=== PATIENT | female | born 1990 | race Caucasian/White ===

== ENCOUNTER → 2017-08-08 | Outpatient (CLI) | payer OTHER ==
[~2017-08-08] MED LIST: ADDR10T; AMOXIL; CEPH500C PO; CYCL10TA9 PO; DDAVP; DIPH-424 PO; ESCT10T; HYDR-1231 PO; METR70GE8 VG; MICO25CR2 VG; NAPR-915 PO; NITR-65 PO; ONDA-42 SL; ONDA8TAB9 PO; PHENERGAN; PREN-115 PO; PREN1TAB71 PO; PRM25T PO; PROM12.59 PO; PROM25SU10 PR; VITAMIN B 6 PO; ZONEGRAN
--- NOTE | 2017-08-08 11:19 | Diagnostic Imaging Report ---
Indication: Pelvic pain. Technique: Russell scale, color flow and duplex Doppler evaluation of the transabdominal/transvaginal pelvis. Findings: The uterus measures 7.8 x 5.0 x 3.3 cm. No uterine mass is detected. Endometrium is 5 mm in thickness. The ovaries were not visualized, perhaps owing to overlying bowel gas. No adnexal mass or free fluid is seen. Impression: Nonvisualized ovaries. The study is otherwise unremarkable. Dictated by: Dictated on workstation # [id number]
== END ==
LOC: RAD 10:02
PROVIDERS: ATTEND Family Medicine
DX: N91.2 Amenorrhea, unspecified (principal)
CPT/HCPCS: 76830; 76856

== ENCOUNTER 2017-12-25 19:58 | Emergency (ER) | payer MEDICAID, OTHER ==
[~2017-12-25] VITALS: Ht 160 cm; Wt 127.0 kg
--- OUTSIDE RECORDS SUMMARY | 2017-12-25 20:04 | XMS REPORT ---
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 Husbandry Technician Name Role Phone OLY DURBIN Unavailable PROBLEMS Type Condition ICD9-CM Code GRF37-UG Code Onset Dates Condition Status SNOMED Code Problem Bipolar I disorder with depression F31.9 Active 45273318 Problem Amenorrhea N91.2 Active 31191159 Problem Social anxiety disorder F40.10 Active 48070685 Problem Obsessive-compulsive disorder, unspecified type F42.9 Active 442633170 Problem PTSD (post-traumatic stress disorder) F43.10 Active 78302165 Problem Mood disorder F39 Active 31627308 Problem 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 Active 37958562 ALLERGIES No Information ENCOUNTERS Encounter Location Date Diagnosis [place] [id number] [place] [address] 95098- 3684 Jan, [place] [address] 16136- 0735 Nov, Benign paroxysmal positional vertigo of left ear H81.12 and BMI 50.0-59.9, adult Z68.43 [facility] [id number] [place] [address] 74984- 9850 Nov, [facility] [id number] [place] [address] 07777- 4456 Nov, [facility] [id number] [place] [address] 66599- 4436 Oct, PTSD (post-traumatic stress disorder) F43.10 and Bipolar I disorder with depression F31.9 [facility] [id number] [place] [address] 82507- 2751 Oct, [facility] [id number] [address] 6609 Oct, PTSD (post-traumatic stress disorder) F43.10 and Bipolar I disorder with depression F31.9 [facility] [address] [address] 6[address] Oct, [facility] [address], [place] [address]- 0585 Sep, Bipolar I disorder with depression F31.9 [facility] [id number] [place] [address] 10151- 7912 Sep, Bipolar I disorder with depression F31.9 ; PTSD (post- traumatic stress disorder) F43.10 ; 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 ; Social anxiety disorder F40.10 and BMI 50.0-59.9, adult Z68.43 [facility] [address], [place] [address]- 8171 Sep, PTSD (post-traumatic stress disorder) F43.10 and Bipolar I disorder with depression F31.9 [facility] [address] [address]- 4054 Sep, PTSD (post-traumatic stress disorder) F43.10 and Bipolar I disorder with depression F31.9 [facility] [address] [address] 4807 August, PTSD (post-traumatic stress disorder) F43.10 and Bipolar I disorder with depression F31.9 [facility] [address], [place] [address]- 3892 August, Bipolar I disorder with depression F31.9 ; PTSD (post- traumatic stress disorder) F43.10 ; 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 ; Social anxiety disorder F40.10 and BMI 50.0-59.9, adult Z68.43 [facility] [address], [place] [address]- 9116 August, [facility] [id number] [place] [address] 83884- 5792 August, Bipolar I disorder with depression F31.9 ; PTSD (post- traumatic stress disorder) F43.10 ; 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 ; Social anxiety disorder F40.10 and BMI 50.0-59.9, adult Z68.43 [place] [address] [place] [address] 04605- 8602 August, [place] [address] 97040- 3285 August, [place] [id number] [place] [address] 04799- 4903 August, PTSD (post-traumatic stress disorder) F43.10 and Bipolar I disorder with depression F31.9 [place] [id number] [place] [address] 38962- 3528 August, [place] [id number] [place] [address] 38257- 2219 Jul, Bipolar I disorder with depression F31.9 ; PTSD (post- traumatic stress disorder) F43.10 ; 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 ; Social anxiety disorder F40.10 and BMI 50.0-59.9, adult Z68.43 [place] [address] [place] [address] 98413- 5086 Jul, PTSD (post-traumatic stress disorder) F43.10 and Bipolar I disorder with depression F31.9 [place] [id number] [place] [address] 58488- 0895 Jul, Pelvic pain R10.2 ; Amenorrhea N91.2 and BMI 50.0-59.9, adult Z68.43 [place] [id number] [place] [address] 34475- 0064 Jun, BMI 50.0-59.9, adult Z68.43 ; Bipolar I disorder with depression F31.9 ; PTSD (post-traumatic stress disorder) F43.10 and 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 [facility] [address] [place] [address] 07669 -2328 15 Jun, 2017 Other viral agents as the cause of diseases classified elsewhere B97.89 ; Other specified respiratory disorders J98.8 ; Bronchitis J40 and Cough R05 [facility] [id number] [place] [address] 15433- 2536 13 Jun, 2017 PTSD (post-traumatic stress disorder) F43.10 [facility] [id number] [place] [address] 70102- 9330 Jun, PTSD (post-traumatic stress disorder) F43.10 and Bipolar I disorder with depression F31.9 [facility] [address] 25082- 5696 13 May, 2017 PTSD (post-traumatic stress disorder) F43.10 and Bipolar I disorder with depression F31.9 [facility] [id number] [place] [address] 24017- 5388 12 May, 2017 [facility] [address] 51208- 7270 07 May, 2017 PTSD (post-traumatic stress disorder) F43.10 and Bipolar I disorder with depression F31.9 [facility] [id number] [place] [address] 48622- 1277 Apr, PTSD (post-traumatic stress disorder) F43.10 and Bipolar I disorder with depression F31.9 [facility] [id number] [place] [address] 90676- 8963 Apr, PTSD (post-traumatic stress disorder) F43.10 and Bipolar I disorder with depression F31.9 [facility] [id number] [place] [address] 77990- 4400 Mar, PTSD (post-traumatic stress disorder) F43.10 ; Obsessive- compulsive disorder, unspecified type F42.9 ; Bipolar I disorder with depression F31.9 and 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 [place] [address], [place] [address]- 6276 Mar, PTSD (post-traumatic stress disorder) F43.10 and Bipolar I disorder with depression F31.9 [facility] [address], [place] [address]- 8326 Feb, PTSD (post-traumatic stress disorder) F43.10 and Bipolar I disorder with depression F31.9 [facility] [address] [place] [address] 87315- 5396 Feb, PTSD (post-traumatic stress disorder) F43.10 and Bipolar I disorder with depression F31.9 [facility] [id number] [place] [address] 40504 -4736 Jan, Strep pharyngitis J02.0 [facility] [id number] [place] [address] 40256- 2116 Jan, [facility] [address] [place] [address] 94863- 3952 Jan, [facility] [id number] [place] [address] 57594- 3255 Jan, PTSD (post-traumatic stress disorder) F43.10 and Bipolar I disorder with depression F31.9 [facility] [address], [place] [address]- 6316 Jan, PTSD (post-traumatic stress disorder) F43.10 and Bipolar I disorder with depression F31.9 [facility] [address], [place] [address]- 9776 Jan, Other senior living (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.899 [facility] [id number] [place] [address] 44171- 5866 Jan, PTSD (post-traumatic stress disorder) F43.10 ; Obsessive- compulsive disorder, unspecified type F42.9 ; Bipolar I disorder with depression F31.9 and Other senior living (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.899 [facility] [address], [place] [address]- 8405 27 Dec, 2016 Encounter for IUD removal Z30.432 and control counseling Z30.09 [facility] [id number] [place] [address] 89213- 4470 Dec, PTSD (post-traumatic stress disorder) F43.10 ; Obsessive- compulsive disorder, unspecified type F42.9 and Bipolar I disorder with depression F31.9 [facility] [id number] [place] [address] 66948- 6564 Dec, PTSD (post-traumatic stress disorder) F43.10 and Bipolar I disorder with depression F31.9 [facility] [id number] [place] [address] 10477- 6859 12 Dec, 2016 PTSD (post-traumatic stress disorder) F43.10 and Bipolar I disorder with depression F31.9 [facility] [id number] [place] [address] 87083- 9365 11 Dec, 2016 Mood disorder F39 [facility] [id number] [place] [address] 51194- 9749 08 Dec, 2016 PTSD (post-traumatic stress disorder) F43.10 ; Mood disorder F39 and Obsessive-compulsive disorder, unspecified type F42.9 [facility] [id number] [place] [address] 66312- 9256 07 Dec, 2016 PTSD (post-traumatic stress disorder) F43.10 and Bipolar I disorder with depression F31.9 [facility] [address] [place] [address] 87240 -9423 Dec, Adverse drug reaction, initial encounter T88.7XXA [facility] [id number] [place] [address] 61265- 3933 Dec, [facility] [id number] [place] [address] 70606- 7434 Nov, PTSD (post-traumatic stress disorder) F43.10 and Bipolar I disorder with depression F31.9 [facility] [address] [facility] [id number] [address]- 4870 Nov, PTSD (post-traumatic stress disorder) F43.10 ; Mood disorder F39 and Obsessive-compulsive disorder, unspecified type F42.9 [facility] [address] [id number] [address]- 6301 Nov, PTSD (post-traumatic stress disorder) F43.10 and Bipolar I disorder with depression F31.9 [facility] [id number], [place] [address]- 1756 Nov, PTSD (post-traumatic stress disorder) F43.10 and Bipolar I disorder with depression F31.9 [facility] [address] [facility] [id number] [address] Nov, [facility] [id number] [place] [address] 28784- 5236 Nov, PTSD (post-traumatic stress disorder) F43.10 and Bipolar I disorder with depression F31.9 [facility] [id number], [place] [address]- 0486 Nov, PTSD (post-traumatic stress disorder) F43.10 and Bipolar I disorder with depression F31.9 [facility] [id number], [place] [address]- 4376 Oct, [facility] [id number] [address]- 4366 Oct, PTSD (post-traumatic stress disorder) F43.10 ; Mood disorder F39 and Obsessive-compulsive disorder, unspecified type F42.9 [facility] [id number] [address]- 8958 Oct, PTSD (post-traumatic stress disorder) F43.10 and Bipolar I disorder with depression F31.9 [facility] [id number], [place] [address]- 8266 Oct, PTSD (post-traumatic stress disorder) F43.10 and Bipolar I disorder with depression F31.9 [facility] [address], [place] [address]- 1727 Oct, PTSD (post-traumatic stress disorder) F43.10 ; Mood disorder F39 and Obsessive-compulsive disorder, unspecified type F42.9 [facility] [address], [place] [address]- 7266 Oct, [facility] [id number] [place] [address] 38320- 5214 Oct, PTSD (post-traumatic stress disorder) F43.10 and Bipolar I disorder with depression F31.9 [facility] [address] [place] [address] 82371- 1274 Oct, PTSD (post-traumatic stress disorder) F43.10 ; Mood disorder F39 and Obsessive-compulsive disorder, unspecified type F42.9 [facility] [address] [place] [address] 89285- 4890 Sep, PTSD (post-traumatic stress disorder) F43.10 and Bipolar I disorder with depression F31.9 [facility] [address], [place] [address]- 2600 Sep, PTSD (post-traumatic stress disorder) F43.10 ; Mood disorder F39 and Obsessive-compulsive disorder, unspecified type F42.9 [facility] [address], [place] [address]- 6290 Sep, PTSD (post-traumatic stress disorder) F43.10 and Bipolar I disorder with depression F31.9 [facility] [address], [place] [address]- 3481 Sep, PTSD (post-traumatic stress disorder) F43.10 and Bipolar I disorder with depression F31.9 [facility] [address], [place] [address]- 3246 August, PTSD (post-traumatic stress disorder) F43.10 and Bipolar I disorder with depression F31.9 [facility] [id number] [place] [address] 22779 -2398 August, Pharyngitis due to other organism J02.8 [facility] [address] [place] [address] 76023- 0996 August, PTSD (post-traumatic stress disorder) F43.10 ; Bipolar 1 disorder, mixed F31.60 and 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 [facility] [id number] [place] [address] 67842- 1459 August, PTSD (post-traumatic stress disorder) F43.10 and Bipolar I disorder with depression F31.9 [facility] [id number] [place] [address] 88537- 8148 Jul, PTSD (post-traumatic stress disorder) F43.10 and Bipolar I disorder with depression F31.9 [facility] [id number] [place] [address] 29270- 0074 Jul, PTSD (post-traumatic stress disorder) F43.10 and Bipolar I disorder with depression F31.9 [facility] [id number] [place] [address] 46611- 0671 Jul, PTSD (post-traumatic stress disorder) F43.10 and Bipolar I disorder with depression F31.9 [facility] [address] [place] [address] 30347- 3843 Jul, Other senior living (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.899 [facility] [address] [place] [address] 05925- 6464 Jun, PTSD (post-traumatic stress disorder) F43.10 and Bipolar I disorder with depression F31.9 [facility] [address] [place] [address] 12661- 7035 Jun, Bipolar 1 disorder, mixed F31.60 ; PTSD (post-traumatic stress disorder) F43.10 and 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 [place] [id number] [place] [address] 50022- 1813 Jun, PTSD (post-traumatic stress disorder) F43.10 and Depression , unspecified depression type F32.9 [place] [id number] [place] [address] 30300- 9047 Jun, PTSD (post-traumatic stress disorder) F43.10 and Depression , unspecified depression type F32.9 [place] [address] 05747- 6079 Jun, PTSD (post-traumatic stress disorder) F43.10 and Depression , unspecified depression type F32.9 [facility] [address] 51354 -8513 May, Fever, unspecified fever cause R50.9 and Gastroenteritis K52.9 [place] [address] 57139- 6411 Mar, Sprain of other ligament of right ankle, subsequent encounter S93.491D [place] [address] 28614- 5647 Mar, [facility] [place] [address] 44247 -4120 Feb, Scabies infestation B86 [place] [address] 26670- 3662 Feb, Dental caries K02.9 [place] [id number] [place] [address] 33936- 1280 Jan, [facility] [address] 56691 -7220 Jan, Pharyngitis, unspecified etiology J02.9 [place] [address] 65638- 3703 Jan, [place] [address] 11870- 3629 Jan, Bipolar affective disorder, remission status unspecified F31.9 [facility] [id number] [place] [address] 87666- 0006 Jan, Encounter for dental examination and cleaning without abnormal findings Z01.20 [facility] [id number] [place] [address] 85292- 0089 Jan, Bipolar affective disorder, remission status unspecified F31.9 [facility] [id number] [place] [address] 15903- 5029 Dec, Bipolar affective disorder, remission status unspecified F31.9 and Depression, unspecified depression type F32.9 [place] [id number] [place] [address] 66335- 9375 Dec, Unspecified mood [affective] disorder F39 and Generalized anxiety disorder F41.1 [place] [id number] [place] [address] 32395- 9959 08 Dec, 2015 Depression, unspecified depression type F32.9 [place] [id number] [place] [address] 43091- 1042 Nov, Dental caries K02.9 [place] [id number] [place] [address] 15403- 1496 Nov, Dental examination Z01.20 [place] [id number] [place] [address] 86055- 5573 Sep, Bipolar affective disorder, remission status unspecified F31.9 [place] [id number] [place] [address] 17206- 6841 August, Tension headache G44.209 [facility] [id number] [place] [address] 81824 -0260 Jul, [facility] [id number] [place] [address] 30175 -1820 Jul, Upper respiratory infection J06.9 and Gastroenteritis K52.9 [facility] [address], [place] [address]- 7258 Jun, [facility]itis J40 [facility] [id number] [place] [address] 82229 -4862 Feb, Thoracic back pain M54.6 and Left shoulder pain M25.512 [facility] [id number], [place] [address]- 1475 Feb, [facility] [id number] [address]- 7589 Jul, [facility] [id number] [place] [address] 56880- 0125 Jul, [facility] [id number] [place] [address] 13422- 2385 Apr, [facility] [id number] [place] [address] 69533- 5019 Apr, [facility] [address], [place] [address]- 2428 Apr, [facility] [address] [place] [address] 91449- 9761 Apr, [facility] [address], [place] [address]- 4753 Mar, [facility] [address], [place] [address]- 4758 Mar, [facility] [address], [place] [address]- 4952 Mar, [facility] [address], [place] [address]- 7871 Mar, [facility] [address], [place] [address]- 6693 Feb, [facility] [address], [place] [address]- 9204 Feb, [facility] [place] [facility] [address] [id number] [place] [address]- 1018 Feb, [facility] [place] [facility] [address] [id number] [place] [address]- 3853 Feb, [facility] [place] [facility] [address] [id number] [place] [address]- 1789 15 Jan, 2014 [facility] [place] [facility] [address] [id number] [place] [address]- 6779 15 Jan, 2014 [facility] [place] [facility] [address] [id number] [place] [address]- 9839 14 Jan, 2014 [facility] [place] [facility] [address] [id number] [place] [address]- 1037 14 Jan, 2014 [facility] [place] [facility] [address] [id number] [place] [address]- 0496 Jan, [facility] [place] [facility] [address] [id number] [place] [address]- 2897 Jan, [facility] [place] [facility] [address] [id number] [place] [address]- 7952 Dec, [facility] [place] [facility] [address] [id number] [place] [address]- 0731 Dec, [facility] [place] [facility] [address] [id number] [place] [address]- 9040 Nov, [facility] [place] [facility] [address] [id number] [place] [address]- 1198 Nov, [facility] [place] [facility] [address] [id number] [place] [address]- 4523 Nov, [facility] [place] [facility] [address] [id number] [place] [address]- 4778 Nov, [facility] [place] [facility] [address] [id number] [place] [address]- 4183 Nov, [facility] [place] [facility] [address] [id number] [place] [address]- 0678 Nov, [facility] [place] [facility] [address] [id number] [place] [address]- 3085 Nov, [facility] [place] [facility] [address] [id number] [place] [address]- 1474 Nov, [facility] [place] [facility] [address] [id number] [place] [address]- 1810 Nov, [facility] [place] [facility] [address] [id number] [place] [address]- 7089 Oct, [facility] [place] [facility] [address] [id number] [place] [address]- 1452 Oct, [facility] [place] [facility] [address] [id number] [place] [address]- 2845 Oct, [facility] [place] [facility] [address] [id number] [place] [address]- 9523 Oct, [facility] [place] [facility] [address] [id number] [place] [address]- 5521 Oct, [facility] [place] [facility] [address] [id number] [place] [address]- 6632 Oct, [facility] [place] [facility] [address] [id number] [place] [address] Oct, [facility] [place] [facility] [address] [id number] [place] [address] Oct, [facility] [place] [facility] [address] [id number] [place] [address] Oct, [facility] [place] [facility] [address] [id number] [place] [address] Oct, [facility] [place] [facility] [address] [id number] [place] [address] Oct, [facility] [place] [facility] [address] [id number] [place] [address] Oct, [facility] [place] [facility] [address] [id number] [place] [address] Oct, 2013 [facility] [place] [facility] [address] [id number] [place] [address] Oct, 2013 [facility] [place] [facility] [address] [id number] [place] [address] Oct, 2013 [facility] [place] [facility] [address] [id number] [place] [address] Oct, 2013 [facility] [place] [facility] [address] [id number] [place] [address] Oct, 2013 [facility] [place] [facility] [address] [id number] [place] [address] Oct, 2013 [facility] [place] [facility] [address] [id number] [place] [address] Oct, [facility] [place] [facility] [address] [id number] [place] [address] Sep, [facility] [place] [facility] [address] [id number] [place] [address] Sep, [facility] [place] [facility] [address] [id number] [place] [address] Sep, [facility] [place] [facility] [address] [id number] [place] [address] Sep, [facility] [place] [facility] [address] [id number] [place] [address] Feb, [facility] [place] [facility] [address] [id number] [place] [address] Feb, [facility] [place] [facility] [address] [id number] [place] [address] Dec, [facility] [place] [facility] [address] [id number] [place] [address] Dec, [facility] [place] [facility] [address] [id number] [place] [address] Nov, [facility] [address] [id number] [place] [address] Nov, [facility] [place] [facility] [address] [id number] [place] [address] Nov, [facility] [place] [facility] [address] [id number] [place] [address] Nov, [facility] [place] [facility] [address] [id number] [place] [address] Nov, [facility] [place] [facility] [address] [id number] [place] [address] Nov, [facility] [place] [facility] [address] [id number] [place] [address] Oct, [facility] [place] [facility] [address] [id number] [place] [address] Apr, [facility] [place] [facility] [address] [id number] [place] [address] August, [facility] [place] [facility] [address] [id number] [place] [address] August, [facility] [place] [facility] [address] [id number] [place] [address] August, [facility] [place] [facility] [address] [id number] [place] [address] Jul, [facility] [place] [facility] [address] [id number] [place] [address] 28 Jun, 2011 [facility] [place] [facility] [address] [id number] [place] [address] 27 Jun, 2011 [facility] [place] [facility] [address] [id number] [place] [address] 14 Jun, 2011 [facility] [place] [facility] [address] [id number] [place] [address] 14 Jun, 2011 [facility] [place] [facility] [address] [id number] [place] [address] Jun, [facility] [address] [id number] [place] [address] Jun, [facility] [place] [facility] [address] [id number] [place] [address] May, 2011 [facility] [place] [facility] [address] [id number] [place] [address] 16 May, 2011 [facility] [place] [facility] [address] [id number] [place] [address] 09 May, 2011 [facility] [place] [facility] [address] [id number] [place] [address] 07 May, 2011 [facility] [place] [facility] [address] [id number] [place] [address] 06 May, 2011 [facility] [address] [facility] [id number] [place] [address] 06 May, 2011 [facility] [place] [facility] [address] [facility] [id number] [place] [address] Apr, [facility] [place] [facility] [address] [facility] [id number] [place] [address] 07 Mar, 2011 [facility] [place] [facility] [address] [facility] [id number] [place] [address] 06 Mar, 2011 [facility] [place] [facility] [address] [id number] [place] [address] 02 Feb, 2011 [facility] [place] [facility] [address] [id number] [place] [address] 13 Jan, 2011 [facility] [place] [facility] [address] [id number] [place] [address] 31 Mar, 2009 [facility] [place] [facility] [address] [facility] [id number] [place] [address] 15 Mar, 2009 [facility] [place] [facility] [address] [id number] [place] [address] Mar, [facility] [address] [id number] [address] Mar, [facility] [id number] [place] [address] Mar, [facility] [address] [id number] [address] Feb, [facility] [id number] [place] [address] Feb, [facility] [id number] [place] [address] Nov, [facility] [id number] [place] [address] May, IMMUNIZATIONS No Known Immunizations SOCIAL HISTORY Never Assessed REASON FOR VISIT Follow-up PTSD/Bipolar Disorder PLAN OF CARE Activity Details Follow Up 2 Weeks Reason: Follow-up VITAL SIGNS MEDICATIONS Unknown Medications RESULTS No Results PROCEDURES Procedure Date Ordered Result Body Site Psychotherapy, patient &/family, 45 minutes, established patient October 21, 2017 INSTRUCTIONS MEDICATIONS ADMINISTERED No Known Medications MEDICAL (GENERAL) HISTORY Type Description Date Medical History HELP syndrome Medical History bi-polar Medical History hypertension Medical History hx of seizure x1, isolated Surgical History gallbladder 10/2013 Surgical History 03/2014 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
--- OUTSIDE RECORDS SUMMARY | 2017-12-25 20:05 | XMS REPORT ---
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 Role Phone MARIANO REDDY Unavailable PROBLEMS Type Condition ICD9-CM Code IGP96-DZ Code Onset Dates Condition Status SNOMED Code Problem Bipolar I disorder with depression F31.9 Active 72292829 Problem Amenorrhea N91.2 Active 97003563 Problem Social anxiety disorder F40.10 Active 65871487 Problem Obsessive-compulsive disorder, unspecified type F42.9 Active 790929541 Problem PTSD (post-traumatic stress disorder) F43.10 Active 52386071 Problem Mood disorder F39 Active 34124928 Problem 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 Active [id number] ALLERGIES No Information ENCOUNTERS Encounter Location Date Diagnosis [facility] [id number] [place] [address] 67772- 2619 Jan, [facility] [id number] [place] [address] 67479- 6898 Nov, Benign paroxysmal positional vertigo of left ear H81.12 and BMI 50.0-59.9, adult Z68.43 [facility] [address], [place] [address] 8297 Nov, [facility] [id number] [place] [address] 12949- 6907 Nov, [facility] [id number] [place] [address] 36470- 7659 Oct, PTSD (post-traumatic stress disorder) F43.10 and Bipolar I disorder with depression F31.9 [facility] [address], [place] [address] 9[address] Oct, [facility] [id number] [address] 6707 Oct, PTSD (post-traumatic stress disorder) F43.10 and Bipolar I disorder with depression F31.9 [facility] [address], [place] [address] 3637 Oct, [facility] [address], [place] [address] 9214 Sep, Bipolar I disorder with depression F31.9 [place] [address] [address] 4037 Sep, Bipolar I disorder with depression F31.9 ; PTSD (post- traumatic stress disorder) F43.10 ; 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 ; Social anxiety disorder F40.10 and BMI 50.0-59.9, adult Z68.43 [place] [address], [place] [address] 6935 Sep, PTSD (post-traumatic stress disorder) F43.10 and Bipolar I disorder with depression F31.9 [place] [address], [place] [address] 9653 Sep, PTSD (post-traumatic stress disorder) F43.10 and Bipolar I disorder with depression F31.9 [place] [address], [place] [address] 8397 August, PTSD (post-traumatic stress disorder) F43.10 and Bipolar I disorder with depression F31.9 [place] [address], [place] [address] 4386 August, Bipolar I disorder with depression F31.9 ; PTSD (post- traumatic stress disorder) F43.10 ; 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 ; Social anxiety disorder F40.10 and BMI 50.0-59.9, adult Z68.43 [place] [address] [address] 6767 August, [place] [id number] [address]- 5728 August, Bipolar I disorder with depression F31.9 ; PTSD (post- traumatic stress disorder) F43.10 ; 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 ; Social anxiety disorder F40.10 and BMI 50.0-59.9, adult Z68.43 [place] [address], [place] [address] 4915 August, [place] [id number] [place] [address] 51920- 1697 August, [place] [id number] [place] [address] 79526- 5099 August, PTSD (post-traumatic stress disorder) F43.10 and Bipolar I disorder with depression F31.9 [place] [id number] [place] [address] 10612- 9177 August, [place] [id number] [place] [address] 27260- 1920 Jul, Bipolar I disorder with depression F31.9 ; PTSD (post- traumatic stress disorder) F43.10 ; 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 ; Social anxiety disorder F40.10 and BMI 50.0-59.9, adult Z68.43 [place] [id number] [place] [address] 51955- 3623 Jul, PTSD (post-traumatic stress disorder) F43.10 and Bipolar I disorder with depression F31.9 [place] [id number] [place] [address] 87065- 2653 Jul, Pelvic pain R10.2 ; Amenorrhea N91.2 and BMI 50.0-59.9, adult Z68.43 [place] [id number] [place] [address] 32363- 7829 Jun, BMI 50.0-59.9, adult Z68.43 ; Bipolar I disorder with depression F31.9 ; PTSD (post-traumatic stress disorder) F43.10 and 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 [facility] [id number] [place] [address] 00675 -7291 15 Jun, 2017 Other viral agents as the cause of diseases classified elsewhere B97.89 ; Other specified respiratory disorders J98.8 ; Bronchitis J40 and Cough R05 [facility] [id number] [place] [address] 83062- 3472 13 Jun, 2017 PTSD (post-traumatic stress disorder) F43.10 [facility] [id number] [place] [address] 12161- 9822 13 Jun, 2017 PTSD (post-traumatic stress disorder) F43.10 and Bipolar I disorder with depression F31.9 [facility] [id number] [place] [address] 75296- 9642 13 May, 2017 PTSD (post-traumatic stress disorder) F43.10 and Bipolar I disorder with depression F31.9 [facility] [id number] [place] [address] 31510- 3995 12 May, 2017 [facility] [id number] [place] [address] 58512- 9471 07 May, 2017 PTSD (post-traumatic stress disorder) F43.10 and Bipolar I disorder with depression F31.9 [facility] [id number] [place] [address] 07134- 2176 Apr, PTSD (post-traumatic stress disorder) F43.10 and Bipolar I disorder with depression F31.9 [facility] [id number] [place] [address] 71734- 0472 Apr, PTSD (post-traumatic stress disorder) F43.10 and Bipolar I disorder with depression F31.9 [facility] [id number] [place] [address] 86991- 6500 Mar, PTSD (post-traumatic stress disorder) F43.10 ; Obsessive- compulsive disorder, unspecified type F42.9 ; Bipolar I disorder with depression F31.9 and 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 [facility] [address], [place] [address]- 2392 Mar, PTSD (post-traumatic stress disorder) F43.10 and Bipolar I disorder with depression F31.9 [facility] [id number] [place] [address] 72671- 9096 Feb, PTSD (post-traumatic stress disorder) F43.10 and Bipolar I disorder with depression F31.9 [facility] [id number] [place] [address] 53215- 2076 Feb, PTSD (post-traumatic stress disorder) F43.10 and Bipolar I disorder with depression F31.9 [facility] [id number] [place] [address] 38841 -3186 Jan, Strep pharyngitis J02.0 [facility] [id number] [place] [address] 20984- 5566 Jan, [facility] [id number] [place] [address] 36027- 7286 Jan, [facility] [id number] [place] [address] 83224- 1085 Jan, PTSD (post-traumatic stress disorder) F43.10 and Bipolar I disorder with depression F31.9 [facility] [address], [place] [address]- 6436 Jan, PTSD (post-traumatic stress disorder) F43.10 and Bipolar I disorder with depression F31.9 [facility] [address], [place] [address]- 3436 Jan, 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 [facility] [id number] [place] [address] 94580- 5736 Jan, PTSD (post-traumatic stress disorder) F43.10 ; Obsessive- compulsive disorder, unspecified type F42.9 ; Bipolar I disorder with depression F31.9 and 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 [facility] [id number] [place] [address] 26939- 6491 27 Dec, 2016 Encounter for IUD removal Z30.432 and control counseling Z30.09 [facility] [id number] [place] [address] 44059- 0174 Dec, PTSD (post-traumatic stress disorder) F43.10 ; Obsessive- compulsive disorder, unspecified type F42.9 and Bipolar I disorder with depression F31.9 [facility] [id number] [place] [address] 10485- 6321 Dec, PTSD (post-traumatic stress disorder) F43.10 and Bipolar I disorder with depression F31.9 [facility] [id number] [place] [address] 10310- 6012 12 Dec, 2016 PTSD (post-traumatic stress disorder) F43.10 and Bipolar I disorder with depression F31.9 [facility] [id number] [place] [address] 14590- 5479 11 Dec, 2016 Mood disorder F39 [facility] [id number] [place] [address] 79406- 5116 08 Dec, 2016 PTSD (post-traumatic stress disorder) F43.10 ; Mood disorder F39 and Obsessive-compulsive disorder, unspecified type F42.9 [facility] [id number] [place] [address] 04658- 9087 07 Dec, 2016 PTSD (post-traumatic stress disorder) F43.10 and Bipolar I disorder with depression F31.9 [facility] [id number] [place] [address] 11048 -6726 Dec, Adverse drug reaction, initial encounter T88.7XXA [facility] [id number] [place] [address] 31309- 6194 Dec, [facility] [id number] [place] [address] 34623- 7025 Nov, PTSD (post-traumatic stress disorder) F43.10 and Bipolar I disorder with depression F31.9 [facility] [id number] [address]- 0687 Nov, PTSD (post-traumatic stress disorder) F43.10 ; Mood disorder F39 and Obsessive-compulsive disorder, unspecified type F42.9 [facility] [id number] [address]- 4096 Nov, PTSD (post-traumatic stress disorder) F43.10 and Bipolar I disorder with depression F31.9 [facility] [address] [facility] [id number] [place] [address] 03082- 7446 Nov, PTSD (post-traumatic stress disorder) F43.10 and Bipolar I disorder with depression F31.9 [facility] [address] [facility] [id number] [address]89 Nov, [facility] [id number] [place] [address] 92655- 8817 Nov, PTSD (post-traumatic stress disorder) F43.10 and Bipolar I disorder with depression F31.9 [facility] [id number] [place] [address] 92265- 8336 Nov, PTSD (post-traumatic stress disorder) F43.10 and Bipolar I disorder with depression F31.9 [facility] [address], [place] [address]- 1390 Oct, [facility] [id number] [place] [address] 26760 2541 Oct, PTSD (post-traumatic stress disorder) F43.10 ; Mood disorder F39 and Obsessive-compulsive disorder, unspecified type F42.9 [facility] [id number] [place] [address] 33914436- 7596 Oct, PTSD (post-traumatic stress disorder) F43.10 and Bipolar I disorder with depression F31.9 [facility] [id number] [place] [address] 40723- 6090 Oct, PTSD (post-traumatic stress disorder) F43.10 and Bipolar I disorder with depression F31.9 [facility] [address], [place] [address]- 4949 Oct, PTSD (post-traumatic stress disorder) F43.10 ; Mood disorder F39 and Obsessive-compulsive disorder, unspecified type F42.9 [facility] [address], [place] [address]- 5430 Oct, [facility] [id number] [place] [address] 73861- 8802 Oct, PTSD (post-traumatic stress disorder) F43.10 and Bipolar I disorder with depression F31.9 [facility] [address], [place] [address]- 7541 Oct, PTSD (post-traumatic stress disorder) F43.10 ; Mood disorder F39 and Obsessive-compulsive disorder, unspecified type F42.9 [facility] [address], [place] [address]- 3841 Sep, PTSD (post-traumatic stress disorder) F43.10 and Bipolar I disorder with depression F31.9 [facility] [address], [place] [address]- 1002 Sep, PTSD (post-traumatic stress disorder) F43.10 ; Mood disorder F39 and Obsessive-compulsive disorder, unspecified type F42.9 [facility] [address], [place] [address]- 8509 Sep, PTSD (post-traumatic stress disorder) F43.10 and Bipolar I disorder with depression F31.9 [facility] [address], [place] [address]- 2872 Sep, PTSD (post-traumatic stress disorder) F43.10 and Bipolar I disorder with depression F31.9 [facility] [address], [place] [address]- 7056 August, PTSD (post-traumatic stress disorder) F43.10 and Bipolar I disorder with depression F31.9 [facility] [address], [place] [address] -2995 August, Pharyngitis due to other organism J02.8 [facility] [address], [place] [address]- 4496 August, PTSD (post-traumatic stress disorder) F43.10 ; Bipolar 1 disorder, mixed F31.60 and 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 [facility] [address], [place] [address]- 5188 August, PTSD (post-traumatic stress disorder) F43.10 and Bipolar I disorder with depression F31.9 [facility] [address], [place] [address]- 3343 Jul, PTSD (post-traumatic stress disorder) F43.10 and Bipolar I disorder with depression F31.9 [facility] [address], [place] [address]- 3125 Jul, PTSD (post-traumatic stress disorder) F43.10 and Bipolar I disorder with depression F31.9 [facility] [id number] [place] [address] 88381- 2583 Jul, PTSD (post-traumatic stress disorder) F43.10 and Bipolar I disorder with depression F31.9 [facility] [address], [place] [address]- 5526 Jul, Other chcf (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.899 [facility] [address], [place] [address]- 9903 Jun, PTSD (post-traumatic stress disorder) F43.10 and Bipolar I disorder with depression F31.9 [facility] [id number], [place] [address]- 0773 Jun, Bipolar 1 disorder, mixed F31.60 ; PTSD (post-traumatic stress disorder) F43.10 and 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 [place] [id number] [place] [address] 31499- 7293 Jun, PTSD (post-traumatic stress disorder) F43.10 and Depression , unspecified depression type F32.9 [place] [id number] [place] [address] 28104- 2740 Jun, PTSD (post-traumatic stress disorder) F43.10 and Depression , unspecified depression type F32.9 [place] [address] 44726- 6700 Jun, PTSD (post-traumatic stress disorder) F43.10 and Depression , unspecified depression type F32.9 [facility] [place] [address] 35531 -8511 May, Fever, unspecified fever cause R50.9 and Gastroenteritis K52.9 [place] [address] 03545- 1928 Mar, Sprain of other ligament of right ankle, subsequent encounter S93.491D [place] [address] 39428- 2776 Mar, [facility] [place] [address] 95612 -1804 Feb, Scabies infestation B86 [place] [address] 13341- 5985 Feb, Dental caries K02.9 [place] [address] 62071- 0873 Jan, [facility] [address] 72680 -9444 Jan, Pharyngitis, unspecified etiology J02.9 [place] [address] 76446- 3636 Jan, [place] [address] [place] [address]- 8186 Jan, Bipolar affective disorder, remission status unspecified F31.9 [place] [id number] [place] [address] 75199- 8688 Jan, Encounter for dental examination and cleaning without abnormal findings Z01.20 [facility] [id number] [place] [address] 02012- 4009 Jan, Bipolar affective disorder, remission status unspecified F31.9 [place] [id number] [place] [address] 16775- 2528 29 Dec, 2015 Bipolar affective disorder, remission status unspecified F31.9 and Depression, unspecified depression type F32.9 [place] [id number] [place] [address] 97292- 8533 Dec, Unspecified mood [affective] disorder F39 and Generalized anxiety disorder F41.1 [place] [id number] [place] [address] 83703- 3728 08 Dec, 2015 Depression, unspecified depression type F32.9 [place] [id number] [place] [address] 21767- 8026 Nov, Dental caries K02.9 [place] [id number] [place] [address] 73874- 8067 Nov, Dental examination Z01.20 [place] [id number] [place] [address] 15644- 0753 24 Sep, 2015 Bipolar affective disorder, remission status unspecified F31.9 [place] [id number] [place] [address] 84663- 3102 August, Tension headache G44.209 [facility] [id number] [place] [address] 97505 -6490 Jul, [facility] [address] [place] [address] 66816 -2466 Jul, Upper respiratory infection J06.9 and Gastroenteritis K52.9 [facility] [address], [place] [address]- 4138 Jun, [facility] J40 [facility] [id number] [place] [address] 81084 -0118 Feb, Thoracic back pain M54.6 and Left shoulder pain M25.512 [facility] [id number] [place] [address] 75153- 8229 Feb, [facility] [id number] [place] [address] 23510- 2242 Jul, [facility] [id number] [place] [address] 31047- 8446 Jul, [facility] [id number] [place] [address] 75341- 3553 Apr, [facility] [id number] [place] [address] 82302- 9518 Apr, [facility] [id number] [place] [address] 10590- 1214 Apr, [facility] [id number] [place] [address] 32831- 2826 Apr, [facility] [id number] [place] [address] 29556- 5186 Mar, [facility] [id number] [place] [address] 35551- 8766 Mar, [facility] [id number] [place] [address] 14312- 3624 Mar, [facility] [id number] [place] [address] 99128- 5663 Mar, [facility] [id number] [place] [address] 83510- 8915 Feb, [facility] [id number] [place] [address] 14158- 3853 Feb, [facility] [place] [facility] [address] [id number] [place] [address]- 4922 Feb, [facility] [place] [facility] [address] [id number] [place] [address]- 3227 Feb, [facility] [place] [facility] [address] [id number] [place] [address]- 3347 15 Jan, 2014 [facility] [place] [facility] [address] [id number] [place] [address]- 9715 Jan, [facility] [place] [facility] [address] [id number] [place] [address]- 5433 Jan, [facility] [place] [facility] [address] [id number] [place] [address]- 5257 Jan, [facility] [place] [facility] [address] [id number] [place] [address]- 0544 Jan, [facility] [place] [facility] [address] [id number] [place] [address]- 1090 Jan, [facility] [place] [facility] [address] [id number] [place] [address]- 6662 Dec, [facility] [place] [facility] [address] [id number] [place] [address]- 8045 Dec, [facility] [place] [facility] [address] [id number], [place] [address]- 2236 Nov, [facility] [place] [facility] [address] [id number], [place] [address]- 3438 Nov, [facility] [place] [facility] [address] [id number] [place] [address]- 3029 Nov, [facility] [place] [facility] [address] [id number] [place] [address] Nov, [facility] [place] [facility] [address] [id number], [place] [address] Nov, [facility] [place] [facility] [address] [id number], [place] [address] Nov, [facility] [place] [facility] [address] [id number] [place] [address] Nov, [facility] [place] [facility] [address] [id number] [place] [address] Nov, [facility] [place] [facility] [address] [id number] [place] [address] Nov, [facility] [place] [facility] [address] [id number] [place] [address] Oct, [facility] [place] [facility] [address] [id number] [place] [address] Oct, [facility] [place] [facility] [address] [id number] [place] [address] Oct, [facility] [place] [facility] [address] [id number] [place] [address] Oct, [facility] [place] [facility] [address] [id number] [place] [address] Oct, [facility] [place] [facility] [address] [id number] [place] [address] Oct, [facility] [place] [facility] [address] [id number] [place] [address] Oct, [facility] [place] [facility] [address] [id number] [place] [address] Oct, [facility] [place] [facility] [address] [id number] [place] [address] Oct, [facility] [place] [facility] [address] [id number] [place] [address] Oct, [facility] [place] [facility] [address] [id number] [place] [address] Oct, [facility] [place] [facility] [address] [id number] [place] [address] Oct, [facility] [place] [facility] [address] [id number] [place] [address] Oct, 2013 [facility] [place] [facility] [address] [id number] [place] [address] Oct, 2013 [facility] [place] [facility] [address] [id number] [place] [address] Oct, 2013 [facility] [facility] [address] [id number] [place] [address] Oct, 2013 [facility] [place] [facility] [address] [id number] [place] [address] Oct, 2013 [facility] [place] [facility] [address] [id number] [place] [address] Oct, 2013 [facility] [place] [facility] [address] [id number] [place] [address] Oct, 2013 [facility] [place] [facility] [address] [id number] [place] [address] Sep, [facility] [place] [facility] [address] [id number] [place] [address] Sep, [facility] [place] [facility] [address] [id number] [place] [address] Sep, [facility] [place] [facility] [address] [id number] [place] [address] Sep, [facility] [place] [facility] [address] [id number] [place] [address] Feb, [facility] [place] [facility] [address] [id number] [place] [address] Feb, [facility] [place] [facility] [address] [id number] [place] [address] Dec, [facility] [place] [facility] [address] [id number] [place] [address] Dec, [facility] [place] [facility] [address] [id number] [place] [address] Nov, [facility] [place] [facility] [address] [id number] [place] [address] Nov, [facility] [place] [facility] [address] [id number] [place] [address] Nov, [facility] [place] [facility] [address] [id number] [place] [address] Nov, [facility] [place] [facility] [address] [id number] [place] [address] Nov, [facility] [place] [facility] [address] [id number] [place] [address] Nov, [facility] [place] [facility] [address] [id number] [place] [address] Oct, [facility] [place] [facility] [address] [id number] [place] [address] Apr, [facility] [place] [facility] [address] [id number] [place] [address] August, [facility] [place] [facility] [address] [id number] [place] [address] August, [facility] [place] [facility] [address] [id number] [place] [address] August, [facility] [place] [facility] [address] [id number] [place] [address] Jul, [facility] [place] [facility] [address] [id number] [place] [address] 28 Jun, 2011 [facility] [place] [facility] [address] [id number] [place] [address] 27 Jun, 2011 [facility] [place] [facility] [address] [id number] [place] [address] 14 Jun, 2011 [facility] [address] [id number] [place] [address] 14 Jun, 2011 [facility] [address] [id number] [place] [address] Jun, [facility] [address] [id number] [place] [address] Jun, [facility] [address] [id number] [place] [address] May, 2011 [facility] [address] [id number] [place] [address] 16 May, 2011 [facility] [address] [id number] [place] [address] 09 May, 2011 [facility] [address] [id number] [place] [address] 07 May, 2011 [facility] [address] [facility] [id number] [place] [address] 06 May, 2011 [facility] [id number] [place] [address] 06 May, 2011 [facility] [address] [id number] [place] [address] Apr, [facility] [address] [facility] [id number] [place] [address] 07 Mar, 2011 [facility] [address] [facility] [id number] [place] [address] 06 Mar, 2011 [facility] [address] [facility] [id number] [place] [address] Feb, [facility] [address] [id number] [place] [address] 13 Jan, 2011 [facility] [address] [facility] [id number] [place] [address] 31 Mar, 2009 [facility] [address] [facility] [id number] [place] [address] 15 Mar, 2009 [facility] [address] [facility] [id number] [place] [address] Mar, [facility] [address] [id number] [address] Mar, [facility] [id number] [place] [address] Mar, [facility] [id number] [place] [address] Feb, [facility] [id number], [place] [address] Feb, [facility] [id number], [place] [address] Nov, [facility] [id number], [place] [address] 10 May, 2008 IMMUNIZATIONS No Known Immunizations SOCIAL HISTORY Never Assessed REASON FOR VISIT PALS IN-[place] PLAN OF CARE VITAL SIGNS MEDICATIONS Unknown Medications RESULTS No Results PROCEDURES No Known procedures INSTRUCTIONS MEDICATIONS ADMINISTERED No Known Medications MEDICAL (GENERAL) HISTORY Type Description Date Medical History HELP syndrome Medical History bi-polar Medical History hypertension Medical History hx of seizure x1, isolated Surgical History gallbladder 10/2013 Surgical History 03/2014 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
--- OUTSIDE RECORDS SUMMARY | 2017-12-25 20:06 | XMS REPORT ---
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 Name Role Phone OLY DURBIN Unavailable PROBLEMS Type Condition ICD9-CM Code HEB26-SD Code Onset Dates Condition Status SNOMED Code Problem Bipolar I disorder with depression F31.9 Active 06386112 Problem Amenorrhea N91.2 Active 23448075 Problem Social anxiety disorder F40.10 Active 89423252 Problem Obsessive-compulsive disorder, unspecified type F42.9 Active 325338008 Problem PTSD (post-traumatic stress disorder) F43.10 Active 44877866 Problem Mood disorder F39 Active 99097931 Problem 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 Active 60344196 ALLERGIES No Information ENCOUNTERS Encounter Location Date Diagnosis [facility] [id number] [place] [address] 46399- 2661 Jan, [place] [address] 45294- 7394 Nov, Benign paroxysmal positional vertigo of left ear H81.12 and BMI 50.0-59.9, adult Z68.43 [facility] [id number] [place] [address] 85581- 3565 Nov, [facility] [id number] [place] [address] 42635- 8725 Nov, [facility] [id number] [place] [address] 53623- 4197 Oct, PTSD (post-traumatic stress disorder) F43.10 and Bipolar I disorder with depression F31.9 [facility] [id number] [place] [address] 10743- 2107 Oct, [facility] [id number] [address] 3611 Oct, PTSD (post-traumatic stress disorder) F43.10 and Bipolar I disorder with depression F31.9 [facility] [address], [place] [address] 4861 Oct, [facility] [address], [place] [address] 4172 Sep, Bipolar I disorder with depression F31.9 [facility] [id number] [place] [address] 27301- 4807 Sep, Bipolar I disorder with depression F31.9 ; PTSD (post- traumatic stress disorder) F43.10 ; 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 ; Social anxiety disorder F40.10 and BMI 50.0-59.9, adult Z68.43 [facility] [address], [place] [address] 4250 Sep, PTSD (post-traumatic stress disorder) F43.10 and Bipolar I disorder with depression F31.9 [facility] [address], [place] [address]- 1442 Sep, PTSD (post-traumatic stress disorder) F43.10 and Bipolar I disorder with depression F31.9 [facility] [address], [place] [address]- 3582 August, PTSD (post-traumatic stress disorder) F43.10 and Bipolar I disorder with depression F31.9 [facility] [address], [place] [address]- 5637 August, Bipolar I disorder with depression F31.9 ; PTSD (post- traumatic stress disorder) F43.10 ; 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 ; Social anxiety disorder F40.10 and BMI 50.0-59.9, adult Z68.43 [facility] [address], [place] [address]- 7469 August, [facility] [id number] [place] [address] 18094- 1768 August, Bipolar I disorder with depression F31.9 ; PTSD (post- traumatic stress disorder) F43.10 ; 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 ; Social anxiety disorder F40.10 and BMI 50.0-59.9, adult Z68.43 [place] [id number] [place] [address] 06840- 4481 August, [place] [address] 91043- 2182 August, [place] [id number] [place] [address] 58064- 0000 August, PTSD (post-traumatic stress disorder) F43.10 and Bipolar I disorder with depression F31.9 [place] [id number] [place] [address] 51861- 9482 August, [place] [id number] [place] [address] 52291- 1315 Jul, Bipolar I disorder with depression F31.9 ; PTSD (post- traumatic stress disorder) F43.10 ; 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 ; Social anxiety disorder F40.10 and BMI 50.0-59.9, adult Z68.43 [place] [id number] [place] [address] 08134- 6878 Jul, PTSD (post-traumatic stress disorder) F43.10 and Bipolar I disorder with depression F31.9 [place] [id number] [place] [address] 09134- 8611 Jul, Pelvic pain R10.2 ; Amenorrhea N91.2 and BMI 50.0-59.9, adult Z68.43 [place] [id number] [place] [address] 71402- 2633 Jun, BMI 50.0-59.9, adult Z68.43 ; Bipolar I disorder with depression F31.9 ; PTSD (post-traumatic stress disorder) F43.10 and 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 [facility] [id number] [place] [address] 58673 -0791 15 Jun, 2017 Other viral agents as the cause of diseases classified elsewhere B97.89 ; Other specified respiratory disorders J98.8 ; Bronchitis J40 and Cough R05 [facility] [id number] [place] [address] 65487- 8236 13 Jun, 2017 PTSD (post-traumatic stress disorder) F43.10 [facility] [id number] [place] [address] 60830- 6873 Jun, PTSD (post-traumatic stress disorder) F43.10 and Bipolar I disorder with depression F31.9 [facility] [address] 52475- 9675 13 May, 2017 PTSD (post-traumatic stress disorder) F43.10 and Bipolar I disorder with depression F31.9 [facility] [id number] [place] [address] 71292- 0900 12 May, 2017 [facility] [address] 79799- 9889 07 May, 2017 PTSD (post-traumatic stress disorder) F43.10 and Bipolar I disorder with depression F31.9 [facility] [id number] [place] [address] 09723- 7344 Apr, PTSD (post-traumatic stress disorder) F43.10 and Bipolar I disorder with depression F31.9 [facility] [id number] [place] [address] 53198- 9331 Apr, PTSD (post-traumatic stress disorder) F43.10 and Bipolar I disorder with depression F31.9 [facility] [id number] [place] [address] 76179- 2349 Mar, PTSD (post-traumatic stress disorder) F43.10 ; Obsessive- compulsive disorder, unspecified type F42.9 ; Bipolar I disorder with depression F31.9 and 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 [place] [address], [place] [address]- 8866 Mar, PTSD (post-traumatic stress disorder) F43.10 and Bipolar I disorder with depression F31.9 [facility] [address], [place] [address]- 2106 Feb, PTSD (post-traumatic stress disorder) F43.10 and Bipolar I disorder with depression F31.9 [facility] [id number] [place] [address] 62238- 5332 Feb, PTSD (post-traumatic stress disorder) F43.10 and Bipolar I disorder with depression F31.9 [facility] [id number] [place] [address] 56578 -5426 Jan, Strep pharyngitis J02.0 [facility] [id number] [place] [address] 86877- 3356 Jan, [facility] [id number] [place] [address] 81092- 7604 Jan, [facility] [id number] [place] [address] 87149- 6737 Jan, PTSD (post-traumatic stress disorder) F43.10 and Bipolar I disorder with depression F31.9 [facility] [address], [place] [address]- 4446 Jan, PTSD (post-traumatic stress disorder) F43.10 and Bipolar I disorder with depression F31.9 [facility] [address], [place] [address]- 7686 Jan, Other care home (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.899 [facility] [id number] [place] [address] 22646- 8906 Jan, PTSD (post-traumatic stress disorder) F43.10 ; Obsessive- compulsive disorder, unspecified type F42.9 ; Bipolar I disorder with depression F31.9 and Other care home (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.899 [facility] [address], [place] [address]- 1675 27 Dec, 2016 Encounter for IUD removal Z30.432 and control counseling Z30.09 [facility] [id number] [place] [address] 25937- 4001 Dec, PTSD (post-traumatic stress disorder) F43.10 ; Obsessive- compulsive disorder, unspecified type F42.9 and Bipolar I disorder with depression F31.9 [facility] [id number] [place] [address] 84096- 2640 Dec, PTSD (post-traumatic stress disorder) F43.10 and Bipolar I disorder with depression F31.9 [facility] [id number] [place] [address] 93305- 8126 12 Dec, 2016 PTSD (post-traumatic stress disorder) F43.10 and Bipolar I disorder with depression F31.9 [facility] [id number] [place] [address] 76185- 7569 11 Dec, 2016 Mood disorder F39 [facility] [id number] [place] [address] 50582- 9843 08 Dec, 2016 PTSD (post-traumatic stress disorder) F43.10 ; Mood disorder F39 and Obsessive-compulsive disorder, unspecified type F42.9 [facility] [id number] [place] [address] 45418- 7947 07 Dec, 2016 PTSD (post-traumatic stress disorder) F43.10 and Bipolar I disorder with depression F31.9 [facility] [id number] [place] [address] 30799 -3708 Dec, Adverse drug reaction, initial encounter T88.7XXA [facility] [id number] [place] [address] 40855- 5378 Dec, [facility] [id number] [place] [address] 39885- 7456 Nov, PTSD (post-traumatic stress disorder) F43.10 and Bipolar I disorder with depression F31.9 [facility] [address] [facility] [id number] [address]- 0710 Nov, PTSD (post-traumatic stress disorder) F43.10 ; Mood disorder F39 and Obsessive-compulsive disorder, unspecified type F42.9 [facility] [id number], [place] [address]- 3481 Nov, PTSD (post-traumatic stress disorder) F43.10 and Bipolar I disorder with depression F31.9 [facility] [id number], [place] [address]- 5386 Nov, PTSD (post-traumatic stress disorder) F43.10 and Bipolar I disorder with depression F31.9 [facility] [address] [facility] [id number], [place] [address] -5871 Nov, [facility] [id number] [place] [address] 49928- 0345 Nov, PTSD (post-traumatic stress disorder) F43.10 and Bipolar I disorder with depression F31.9 [facility] [id number], [place] [address]- 5326 Nov, PTSD (post-traumatic stress disorder) F43.10 and Bipolar I disorder with depression F31.9 [facility] [id number], [place] [address]- 5553 Oct, [facility] [id number], [place] [address]- 1386 Oct, PTSD (post-traumatic stress disorder) F43.10 ; Mood disorder F39 and Obsessive-compulsive disorder, unspecified type F42.9 [facility] [id number], [place] [address]- 9078 Oct, PTSD (post-traumatic stress disorder) F43.10 and Bipolar I disorder with depression F31.9 [facility] [id number], [place] [address]- 4126 Oct, PTSD (post-traumatic stress disorder) F43.10 and Bipolar I disorder with depression F31.9 [facility] [address], [place] [address]- 9987 Oct, PTSD (post-traumatic stress disorder) F43.10 ; Mood disorder F39 and Obsessive-compulsive disorder, unspecified type F42.9 [facility] [address], [place] [address]- 8986 Oct, [facility] [id number] [place] [address] 29204- 6095 Oct, PTSD (post-traumatic stress disorder) F43.10 and Bipolar I disorder with depression F31.9 [facility] [id number] [place] [address] 52805- 8084 Oct, PTSD (post-traumatic stress disorder) F43.10 ; Mood disorder F39 and Obsessive-compulsive disorder, unspecified type F42.9 [facility] [id number] [place] [address] 24034- 4512 Sep, PTSD (post-traumatic stress disorder) F43.10 and Bipolar I disorder with depression F31.9 [facility] [address], [place] [address]- 2355 Sep, PTSD (post-traumatic stress disorder) F43.10 ; Mood disorder F39 and Obsessive-compulsive disorder, unspecified type F42.9 [facility] [address], [place] [address]- 9899 Sep, PTSD (post-traumatic stress disorder) F43.10 and Bipolar I disorder with depression F31.9 [facility] [address], [place] [address]- 5527 Sep, PTSD (post-traumatic stress disorder) F43.10 and Bipolar I disorder with depression F31.9 [facility] [address], [place] [address]- 8466 August, PTSD (post-traumatic stress disorder) F43.10 and Bipolar I disorder with depression F31.9 [facility] [id number] [place] [address] 23483 -2914 August, Pharyngitis due to other organism J02.8 [facility] [id number] [place] [address] 19252- 4596 August, PTSD (post-traumatic stress disorder) F43.10 ; Bipolar 1 disorder, mixed F31.60 and 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 [facility] [id number] [place] [address] 20403- 5332 August, PTSD (post-traumatic stress disorder) F43.10 and Bipolar I disorder with depression F31.9 [facility] [id number] [place] [address] 82286- 8013 Jul, PTSD (post-traumatic stress disorder) F43.10 and Bipolar I disorder with depression F31.9 [facility] [id number] [place] [address] 54378- 1188 Jul, PTSD (post-traumatic stress disorder) F43.10 and Bipolar I disorder with depression F31.9 [facility] [id number] [place] [address] 30959- 5845 Jul, PTSD (post-traumatic stress disorder) F43.10 and Bipolar I disorder with depression F31.9 [facility] [id number] [place] [address] 07440- 5871 Jul, Other care home (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.899 [facility] [id number] [place] [address] 25876- 8228 Jun, PTSD (post-traumatic stress disorder) F43.10 and Bipolar I disorder with depression F31.9 [facility] [id number] [place] [address] 13041- 7457 Jun, Bipolar 1 disorder, mixed F31.60 ; PTSD (post-traumatic stress disorder) F43.10 and 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 [place] [id number] [place] [address] 24970- 9684 Jun, PTSD (post-traumatic stress disorder) F43.10 and Depression , unspecified depression type F32.9 [place] [id number] [place] [address] 32657- 9571 Jun, PTSD (post-traumatic stress disorder) F43.10 and Depression , unspecified depression type F32.9 [place] [address] 07002- 7285 Jun, PTSD (post-traumatic stress disorder) F43.10 and Depression , unspecified depression type F32.9 [facility] [address] 93883 -8597 May, Fever, unspecified fever cause R50.9 and Gastroenteritis K52.9 [place] [address] 94024- 8635 Mar, Sprain of other ligament of right ankle, subsequent encounter S93.491D [place] [address] 38702- 3630 Mar, [facility] [place] [address] 67663 -8732 Feb, Scabies infestation B86 [place] [address] 96397- 4116 Feb, Dental caries K02.9 [place] [id number] [place] [address] 19472- 1869 Jan, [facility] [address] 81489 -0792 Jan, Pharyngitis, unspecified etiology J02.9 [place] [address] 89492- 1805 Jan, [place] [address] 07567- 9350 Jan, Bipolar affective disorder, remission status unspecified F31.9 [facility] [id number] [place] [address] 02505- 9383 Jan, Encounter for dental examination and cleaning without abnormal findings Z01.20 [facility] [id number] [place] [address] 15282- 9755 Jan, Bipolar affective disorder, remission status unspecified F31.9 [facility] [id number] [place] [address] 80446- 5453 Dec, Bipolar affective disorder, remission status unspecified F31.9 and Depression, unspecified depression type F32.9 [place] [id number] [place] [address] 04310- 4735 Dec, Unspecified mood [affective] disorder F39 and Generalized anxiety disorder F41.1 [place] [id number] [place] [address] 85730- 1972 08 Dec, 2015 Depression, unspecified depression type F32.9 [place] [id number] [place] [address] 44182- 7967 Nov, Dental caries K02.9 [place] [id number] [place] [address] 37296- 3560 Nov, Dental examination Z01.20 [place] [id number] [place] [address] 02628- 7300 Sep, Bipolar affective disorder, remission status unspecified F31.9 [place] [id number] [place] [address] 71628- 3848 August, Tension headache G44.209 [facility] [id number] [place] [address] 98245 -9553 Jul, [facility] [id number] [place] [address] 75458 -7711 Jul, Upper respiratory infection J06.9 and Gastroenteritis K52.9 [facility] [address], [place] [address]- 1452 Jun, [facility]chitis J40 [facility] [id number] [place] [address] 42956 -7771 Feb, Thoracic back pain M54.6 and Left shoulder pain M25.512 [facility] [id number], [place] [address]- 5368 Feb, [facility] [id number], [place] [address]- 7893 Jul, [facility] [id number] [place] [address] 11173- 4183 Jul, [facility] [id number] [place] [address] 50757- 7875 Apr, [facility] [id number] [place] [address] 06136- 7756 Apr, [facility] [address], [place] [address]- 0327 Apr, [facility] [id number] [place] [address] 06788- 8635 Apr, [facility] [address], [place] [address]- 0835 Mar, [facility] [address], [place] [address]- 1282 Mar, [facility] [address], [place] [address]- 6661 Mar, [facility] [address], [place] [address]- 5118 Mar, [facility] [address], [place] [address]- 2300 Feb, [facility] [address], [place] [address]- 1540 Feb, [facility] [place] [facility] [address] [id number] [place] [address]- 8734 Feb, [facility] [place] [facility] [address] [id number] [place] [address]- 5545 Feb, [facility] [place] [facility] [address] [id number] [place] [address]- 4063 15 Jan, 2014 [facility] [place] [facility] [address] [id number] [place] [address]- 4722 15 Jan, 2014 [facility] [place] [facility] [address] [id number] [place] [address]- 4249 14 Jan, 2014 [facility] [place] [facility] [address] [id number] [place] [address]- 3762 14 Jan, 2014 [facility] [place] [facility] [address] [id number] [place] [address]- 7142 Jan, [facility] [place] [facility] [address] [id number] [place] [address]- 3479 Jan, [facility] [place] [facility] [address] [id number] [place] [address]- 8532 Dec, [facility] [place] [facility] [address] [id number] [place] [address]- 8586 Dec, [facility] [place] [facility] [address] [id number] [place] [address]- 0615 Nov, [facility] [place] [facility] [address] [id number] [place] [address]- 2923 Nov, [facility] [place] [facility] [address] [id number] [place] [address]- 0590 Nov, [facility] [place] [facility] [address] [id number] [place] [address]- 3663 Nov, [facility] [place] [facility] [address] [id number] [place] [address]- 1599 Nov, [facility] [place] [facility] [address] [id number] [place] [address]- 8636 Nov, [facility] [place] [facility] [address] [id number] [place] [address]- 9437 Nov, [facility] [place] [facility] [address] [id number] [place] [address]- 7743 Nov, [facility] [place] [facility] [address] [id number] [place] [address]- 3253 Nov, [facility] [place] [facility] [address] [id number] [place] [address] Oct, [facility] [place] [facility] [address] [id number] [place] [address] Oct, [facility] [place] [facility] [address] [id number] [place] [address] Oct, [facility] [place] [facility] [address] [id number] [place] [address] Oct, [facility] [place] [facility] [address] [id number] [place] [address] Oct, [facility] [place] [facility] [address] [id number] [place] [address] Oct, [facility] [place] [facility] [address] [id number] [place] [address] Oct, [facility] [place] [facility] [address] [id number] [place] [address] Oct, [facility] [place] [facility] [address] [id number] [place] [address] Oct, [facility] [place] [facility] [address] [id number] [place] [address] Oct, [facility] [place] [facility] [address] [id number] [place] [address] Oct, [facility] [place] [facility] [address] [id number] [place] [address] Oct, [facility] [place] [facility] [address] [id number] [place] [address] Oct, 2013 [facility] [place] [facility] [address] [id number] [place] [address] Oct, 2013 [facility] [place] [facility] [address] [id number] [place] [address] Oct, 2013 [facility] [place] [facility] [address] [id number] [place] [address] Oct, 2013 [facility] [place] [facility] [address] [id number] [place] [address] Oct, 2013 [facility] [place] [facility] [address] [id number] [place] [address] Oct, 2013 [facility] [place] [facility] [address] [id number] [place] [address] Oct, [facility] [place] [facility] [address] [id number] [place] [address] Sep, [facility] [place] [facility] [address] [id number] [place] [address] Sep, [facility] [place] [facility] [address] [id number] [place] [address] Sep, [facility] [place] [facility] [address] [id number] [place] [address] Sep, [facility] [place] [facility] [address] [id number] [place] [address] Feb, [facility] [place] [facility] [address] [id number] [place] [address] Feb, [facility] [place] [facility] [address] [id number] [place] [address] Dec, [facility] [place] [facility] [address] [id number] [place] [address] Dec, [facility] [place] [facility] [address] [id number] [place] [address] Nov, [facility] [address] [id number] [place] [address] Nov, [facility] [place] [facility] [address] [id number] [place] [address] Nov, [facility] [place] [facility] [address] [id number] [place] [address] Nov, [facility] [place] [facility] [address] [id number] [place] [address] Nov, [facility] [place] [facility] [address] [id number] [place] [address] Nov, [facility] [place] [facility] [address] [id number] [place] [address] Oct, [facility] [place] [facility] [address] [id number] [place] [address] Apr, [facility] [place] [facility] [address] [id number] [place] [address] August, [facility] [place] [facility] [address] [id number] [place] [address] August, [facility] [place] [facility] [address] [id number] [place] [address] August, [facility] [place] [facility] [address] [id number] [place] [address] Jul, [facility] [place] [facility] [address] [id number] [place] [address] 28 Jun, 2011 [facility] [place] [facility] [address] [id number] [place] [address] 27 Jun, 2011 [facility] [place] [facility] [address] [id number] [place] [address] 14 Jun, 2011 [facility] [place] [facility] [address] [id number] [place] [address] 14 Jun, 2011 [facility] [place] [facility] [address] [id number] [place] [address] Jun, [facility] [address] [id number] [place] [address] Jun, [facility] [place] [facility] [address] [id number] [place] [address] May, 2011 [facility] [place] [facility] [address] [id number] [place] [address] 16 May, 2011 [facility] [place] [facility] [address] [id number] [place] [address] 09 May, 2011 [facility] [place] [facility] [address] [id number] [place] [address] 07 May, 2011 [facility] [place] [facility] [address] [id number] [place] [address] 06 May, 2011 [facility] [address] [facility] [id number] [place] [address] 06 May, 2011 [facility] [place] [facility] [address] [facility] [id number] [place] [address] Apr, [facility] [place] [facility] [address] [facility] [id number] [place] [address] 07 Mar, 2011 [facility] [place] [facility] [address] [facility] [id number] [place] [address] 06 Mar, 2011 [facility] [place] [facility] [address] [id number] [place] [address] 02 Feb, 2011 [facility] [place] [facility] [address] [id number] [place] [address] 13 Jan, 2011 [facility] [place] [facility] [address] [id number] [place] [address] 31 Mar, 2009 [facility] [place] [facility] [address] [facility] [id number] [place] [address] 15 Mar, 2009 [facility] [place] [facility] [address] [id number] [place] [address] Mar, [facility] [address] [id number] [address] Mar, [facility] [id number] [place] [address] Mar, [facility] [id number], [place] [address] Feb, [facility] [id number] [place] [address] Feb, [facility] [id number], [place] [address] Nov, [facility] [id number], [place] [address] May, IMMUNIZATIONS No Known Immunizations SOCIAL HISTORY Never Assessed REASON FOR VISIT FYI PLAN OF CARE VITAL SIGNS MEDICATIONS Unknown Medications RESULTS No Results PROCEDURES No Known procedures INSTRUCTIONS MEDICATIONS ADMINISTERED No Known Medications MEDICAL (GENERAL) HISTORY Type Description Date Medical History HELP syndrome Medical History bi-polar Medical History hypertension Medical History hx of seizure x1, isolated Surgical History gallbladder 10/2013 Surgical History 03/2014 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
--- OUTSIDE RECORDS SUMMARY | 2017-12-25 20:06 | XMS REPORT ---
Author Author OLY DURBIN [facility] Address [address] [place] [address] Care Team Providers Care Freight Traffic Consultant Name Role Phone OLY DURBIN Unavailable PROBLEMS Type Condition ICD9-CM Code XEN14-UQ Code Onset Dates Condition Status SNOMED Code Problem Bipolar I disorder with depression F31.9 Active 89340272 Problem Amenorrhea N91.2 Active 03840641 Problem Social anxiety disorder F40.10 Active 07196973 Problem Obsessive-compulsive disorder, unspecified type F42.9 Active 564263458 Problem PTSD (post-traumatic stress disorder) F43.10 Active 36376599 Problem Mood disorder F39 Active 25111502 Problem 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 Active [id number] ALLERGIES No Information ENCOUNTERS Encounter Location Date Diagnosis [place] [id number] [place] [address] 49888- 6950 Jan, [place] [address] [address]- [address]162 Nov, Benign paroxysmal positional vertigo of left ear H81.12 and BMI 50.0-59.9, adult Z68.43 [facility] [id number] [place] [address] 48715- 2096 Nov, [facility] [id number] [place] [address] 66706- 6955 Nov, [facility] [id number] [place] [address] 30343- 3059 Oct, PTSD (post-traumatic stress disorder) F43.10 and Bipolar I disorder with depression F31.9 [facility] [id number] [place] [address] 85238- 7515 Oct, [facility] [id number] [address] 2107 Oct, PTSD (post-traumatic stress disorder) F43.10 and Bipolar I disorder with depression F31.9 [facility] [address] [address] 9034 Oct, [facility] [address] [address] 9565 Sep, Bipolar I disorder with depression F31.9 [facility] [id number] [place] [address] 36610- 0607 Sep, Bipolar I disorder with depression F31.9 ; PTSD (post- traumatic stress disorder) F43.10 ; 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 ; Social anxiety disorder F40.10 and BMI 50.0-59.9, adult Z68.43 [facility] [address] [address] 277[address] Sep, PTSD (post-traumatic stress disorder) F43.10 and Bipolar I disorder with depression F31.9 [facility] [address] [address]- 0712 Sep, PTSD (post-traumatic stress disorder) F43.10 and Bipolar I disorder with depression F31.9 [facility] [address] [address] 3141 August, PTSD (post-traumatic stress disorder) F43.10 and Bipolar I disorder with depression F31.9 [facility] [address] [address]- 1643 August, Bipolar I disorder with depression F31.9 ; PTSD (post- traumatic stress disorder) F43.10 ; 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 ; Social anxiety disorder F40.10 and BMI 50.0-59.9, adult Z68.43 [facility] [address] [address] 0894 August, [facility] [id number] [place] [address] 16091- 7642 August, Bipolar I disorder with depression F31.9 ; PTSD (post- traumatic stress disorder) F43.10 ; 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 ; Social anxiety disorder F40.10 and BMI 50.0-59.9, adult Z68.43 [place] [id number] [place] [address] 01744- 9655 August, [place] [address] 09250- 0554 August, [place] [id number] [place] [address] 98753- 1991 August, PTSD (post-traumatic stress disorder) F43.10 and Bipolar I disorder with depression F31.9 [place] [id number] [place] [address] 94546- 1469 August, [place] [id number] [place] [address] 06308- 3880 Jul, Bipolar I disorder with depression F31.9 ; PTSD (post- traumatic stress disorder) F43.10 ; 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 ; Social anxiety disorder F40.10 and BMI 50.0-59.9, adult Z68.43 [place] [id number] [place] [address] 72121- 2569 Jul, PTSD (post-traumatic stress disorder) F43.10 and Bipolar I disorder with depression F31.9 [place] [id number] [place] [address] 78725- 6295 Jul, Pelvic pain R10.2 ; Amenorrhea N91.2 and BMI 50.0-59.9, adult Z68.43 [place] [id number] [place] [address] 75082- 7293 Jun, BMI 50.0-59.9, adult Z68.43 ; Bipolar I disorder with depression F31.9 ; PTSD (post-traumatic stress disorder) F43.10 and 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 [facility] [id number] [place] [address] 14909 -5209 15 Jun, 2017 Other viral agents as the cause of diseases classified elsewhere B97.89 ; Other specified respiratory disorders J98.8 ; Bronchitis J40 and Cough R05 [facility] [id number] [place] [address] 78624- 8092 13 Jun, 2017 PTSD (post-traumatic stress disorder) F43.10 [facility] [id number] [place] [address] 04164- 7890 Jun, PTSD (post-traumatic stress disorder) F43.10 and Bipolar I disorder with depression F31.9 [facility] [address] 11896- 6291 13 May, 2017 PTSD (post-traumatic stress disorder) F43.10 and Bipolar I disorder with depression F31.9 [facility] [id number] [place] [address] 41180- 3798 12 May, 2017 [facility] [address] 70009- 9969 07 May, 2017 PTSD (post-traumatic stress disorder) F43.10 and Bipolar I disorder with depression F31.9 [facility] [id number] [place] [address] 56759- 2828 Apr, PTSD (post-traumatic stress disorder) F43.10 and Bipolar I disorder with depression F31.9 [facility] [id number] [place] [address] 15301- 3771 Apr, PTSD (post-traumatic stress disorder) F43.10 and Bipolar I disorder with depression F31.9 [facility] [id number] [place] [address] 67252- 7838 Mar, PTSD (post-traumatic stress disorder) F43.10 ; Obsessive- compulsive disorder, unspecified type F42.9 ; Bipolar I disorder with depression F31.9 and Other long term care phlebotomist (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.899 [place] [address], [place] [address]- 1206 Mar, PTSD (post-traumatic stress disorder) F43.10 and Bipolar I disorder with depression F31.9 [facility] [address], [place] [address]- 3646 Feb, PTSD (post-traumatic stress disorder) F43.10 and Bipolar I disorder with depression F31.9 [facility] [id number] [place] [address] 05029- 8784 Feb, PTSD (post-traumatic stress disorder) F43.10 and Bipolar I disorder with depression F31.9 [facility] [id number] [place] [address] 29652 -1366 Jan, Strep pharyngitis J02.0 [facility] [id number] [place] [address] 76200- 3526 Jan, [facility] [id number] [place] [address] 54492- 9826 Jan, [facility] [id number] [place] [address] 28620- 1687 Jan, PTSD (post-traumatic stress disorder) F43.10 and Bipolar I disorder with depression F31.9 [facility] [address], [place] [address]- 4456 Jan, PTSD (post-traumatic stress disorder) F43.10 and Bipolar I disorder with depression F31.9 [facility] [address], [place] [address]- 0676 Jan, Other half-way (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.899 [facility] [id number] [place] [address] 41611- 6396 Jan, PTSD (post-traumatic stress disorder) F43.10 ; Obsessive- compulsive disorder, unspecified type F42.9 ; Bipolar I disorder with depression F31.9 and Other half-way (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.899 [facility] [address], [place] [address]- 1076 27 Dec, 2016 Encounter for IUD removal Z30.432 and control counseling Z30.09 [facility] [id number] [place] [address] 96454- 3746 Dec, PTSD (post-traumatic stress disorder) F43.10 ; Obsessive- compulsive disorder, unspecified type F42.9 and Bipolar I disorder with depression F31.9 [facility] [id number] [place] [address] 55096- 3252 Dec, PTSD (post-traumatic stress disorder) F43.10 and Bipolar I disorder with depression F31.9 [facility] [id number] [place] [address] 78207- 3343 12 Dec, 2016 PTSD (post-traumatic stress disorder) F43.10 and Bipolar I disorder with depression F31.9 [facility] [id number] [place] [address] 31205- 0745 11 Dec, 2016 Mood disorder F39 [facility] [id number] [place] [address] 21026- 7195 08 Dec, 2016 PTSD (post-traumatic stress disorder) F43.10 ; Mood disorder F39 and Obsessive-compulsive disorder, unspecified type F42.9 [facility] [id number] [place] [address] 74027- 6861 07 Dec, 2016 PTSD (post-traumatic stress disorder) F43.10 and Bipolar I disorder with depression F31.9 [facility] [address] [place] [address] 67781 -5009 Dec, Adverse drug reaction, initial encounter T88.7XXA [facility] [id number] [place] [address] 30653- 3904 Dec, [facility] [id number] [place] [address] 72008- 0609 Nov, PTSD (post-traumatic stress disorder) F43.10 and Bipolar I disorder with depression F31.9 [facility] [address] [facility] [id number] [address]- 0766 Nov, PTSD (post-traumatic stress disorder) F43.10 ; Mood disorder F39 and Obsessive-compulsive disorder, unspecified type F42.9 [facility] [address] [place] [id number] [address]- 6682 Nov, PTSD (post-traumatic stress disorder) F43.10 and Bipolar I disorder with depression F31.9 [facility] [address] [place] [id number] [address]- 9236 Nov, PTSD (post-traumatic stress disorder) F43.10 and Bipolar I disorder with depression F31.9 [facility] [address] [facility] [id number] [address] Nov, [facility] [id number] [place] [address] 94192- 7916 Nov, PTSD (post-traumatic stress disorder) F43.10 and Bipolar I disorder with depression F31.9 [facility] [address] [id number] [address]- 5756 Nov, PTSD (post-traumatic stress disorder) F43.10 and Bipolar I disorder with depression F31.9 [facility] [id number] [address]- 6884 Oct, [facility] [address] [id number] [address]- 3876 Oct, PTSD (post-traumatic stress disorder) F43.10 ; Mood disorder F39 and Obsessive-compulsive disorder, unspecified type F42.9 [facility] [address] [id number] [address]- 0667 Oct, PTSD (post-traumatic stress disorder) F43.10 and Bipolar I disorder with depression F31.9 [facility] [address] [id number], [place] [address]- 4276 Oct, PTSD (post-traumatic stress disorder) F43.10 and Bipolar I disorder with depression F31.9 [facility] [address], [place] [address]- 0779 Oct, PTSD (post-traumatic stress disorder) F43.10 ; Mood disorder F39 and Obsessive-compulsive disorder, unspecified type F42.9 [facility] [address], [place] [address]- 5976 Oct, [facility] [id number] [place] [address] 94665- 1757 Oct, PTSD (post-traumatic stress disorder) F43.10 and Bipolar I disorder with depression F31.9 [facility] [address] [place] [address] 25901- 1325 Oct, PTSD (post-traumatic stress disorder) F43.10 ; Mood disorder F39 and Obsessive-compulsive disorder, unspecified type F42.9 [facility] [address] [place] [address] 03534- 6358 Sep, PTSD (post-traumatic stress disorder) F43.10 and Bipolar I disorder with depression F31.9 [facility] [address], [place] [address]- 8992 Sep, PTSD (post-traumatic stress disorder) F43.10 ; Mood disorder F39 and Obsessive-compulsive disorder, unspecified type F42.9 [facility] [address], [place] [address]- 1144 Sep, PTSD (post-traumatic stress disorder) F43.10 and Bipolar I disorder with depression F31.9 [facility] [address], [place] [address]- 1098 Sep, PTSD (post-traumatic stress disorder) F43.10 and Bipolar I disorder with depression F31.9 [facility] [address], [place] [address]- 4648 August, PTSD (post-traumatic stress disorder) F43.10 and Bipolar I disorder with depression F31.[address] [facility] [address] [place] [address] 61544 -4676 August, Pharyngitis due to other organism J02.8 [facility] [address] [place] [address] 61489- 8006 August, PTSD (post-traumatic stress disorder) F43.10 ; Bipolar 1 disorder, mixed F31.60 and Other long term care phlebotomist (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.899 [facility] [id number] [place] [address] 05960- 4937 August, PTSD (post-traumatic stress disorder) F43.10 and Bipolar I disorder with depression F31.9 [facility] [id number] [place] [address] 96690- 9123 Jul, PTSD (post-traumatic stress disorder) F43.10 and Bipolar I disorder with depression F31.9 [facility] [id number] [place] [address] 55167- 4754 Jul, PTSD (post-traumatic stress disorder) F43.10 and Bipolar I disorder with depression F31.9 [facility] [id number] [place] [address] 93231- 0367 Jul, PTSD (post-traumatic stress disorder) F43.10 and Bipolar I disorder with depression F31.9 [facility] [address] [place] [address] 56439- 0213 Jul, Other half-way (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.899 [facility] [address] [place] [address] 03650- 3838 Jun, PTSD (post-traumatic stress disorder) F43.10 and Bipolar I disorder with depression F31.9 [facility] [address] [place] [address] 40584- 7550 Jun, Bipolar 1 disorder, mixed F31.60 ; PTSD (post-traumatic stress disorder) F43.10 and Other long term care phlebotomist (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.899 [place] [id number] [place] [address] 46147- 4253 Jun, PTSD (post-traumatic stress disorder) F43.10 and Depression , unspecified depression type F32.9 [place] [id number] [place] [address] 13036- 4910 Jun, PTSD (post-traumatic stress disorder) F43.10 and Depression , unspecified depression type F32.9 [place] [address] 21155- 4083 Jun, PTSD (post-traumatic stress disorder) F43.10 and Depression , unspecified depression type F32.9 [facility] [address] 44489 -6119 May, Fever, unspecified fever cause R50.9 and Gastroenteritis K52.9 [place] [address] 94733- 3721 Mar, Sprain of other ligament of right ankle, subsequent encounter S93.491D [place] [address] 20040- 7049 Mar, [facility] [place] [address] 88289 -3390 Feb, Scabies infestation B86 [place] [address] 53082- 0918 Feb, Dental caries K02.9 [place] [id number] [place] [address] 29828- 7652 Jan, [facility] [address] 93469 -3374 Jan, Pharyngitis, unspecified etiology J02.9 [place] [address] 57819- 3161 Jan, [place] [address] 39283- 8322 Jan, Bipolar affective disorder, remission status unspecified F31.9 [facility] [id number] [place] [address] 34901- 9671 Jan, Encounter for dental examination and cleaning without abnormal findings Z01.20 [facility] [id number] [place] [address] 00032- 8255 Jan, Bipolar affective disorder, remission status unspecified F31.9 [facility] [id number] [place] [address] 05591- 0243 Dec, Bipolar affective disorder, remission status unspecified F31.9 and Depression, unspecified depression type F32.9 [place] [id number] [place] [address] 29546- 1372 Dec, Unspecified mood [affective] disorder F39 and Generalized anxiety disorder F41.1 [place] [id number] [place] [address] 98425- 7493 08 Dec, 2015 Depression, unspecified depression type F32.9 [place] [id number] [place] [address] 59552- 2839 Nov, Dental caries K02.9 [place] [id number] [place] [address] 17203- 1708 Nov, Dental examination Z01.20 [place] [id number] [place] [address] 90372- 6986 Sep, Bipolar affective disorder, remission status unspecified F31.9 [place] [id number] [place] [address] 63790- 3922 August, Tension headache G44.209 [facility] [id number] [place] [address] 32210 -5635 Jul, [facility] [id number] [place] [address] 70741 -2002 Jul, Upper respiratory infection J06.9 and Gastroenteritis K52.9 [facility] [address], [place] [address]- 0580 Jun, Bronchitis J40 [facility] [id number] [place] [address] 25723 -1148 Feb, Thoracic back pain M54.6 and Left shoulder pain M25.512 [facility] [id number] [address]- 8532 Feb, [facility] [id number] [address]- 6107 Jul, [facility] [id number] [place] [address] 27818- 3570 Jul, [facility] [id number] [place] [address] 57970- 5413 Apr, [facility] [id number] [place] [address] 66867- 4974 Apr, [facility] [address], [place] [address]- 6654 Apr, [facility] [id number] [place] [address] 76562- 0724 Apr, [facility] [address], [place] [address]- 1518 Mar, [facility] [address], [place] [address]- 9248 Mar, [facility] [address], [place] [address]- 6181 Mar, [facility] [address], [place] [address]- 4531 Mar, [facility] [address] [address]- 7106 Feb, [facility] [address] [address]- 3003 Feb, [facility] [place] [facility] [address] [id number] [place] [address]- 7729 Feb, [facility] [place] [facility] [address] [id number] [place] [address]- 3364 Feb, [facility] [place] [facility] [address] [id number] [place] [address]- 2512 15 Jan, 2014 [facility] [place] [facility] [address] [id number] [place] [address]- 0175 15 Jan, 2014 [facility] [place] [facility] [address] [id number] [place] [address]- 0623 14 Jan, 2014 [facility] [place] [facility] [address] [id number] [place] [address]- 7984 14 Jan, 2014 [facility] [place] [facility] [address] [id number] [place] [address]- 3508 Jan, [facility] [place] [facility] [address] [id number] [place] [address]- 6772 Jan, [facility] [place] [facility] [address] [id number] [place] [address]- 0840 Dec, [facility] [place] [facility] [address] [id number] [place] [address]- 8112 Dec, [facility] [place] [facility] [address] [id number] [place] [address]- 0627 Nov, [facility] [place] [facility] [address] [id number] [place] [address]- 3833 Nov, [facility] [place] [facility] [address] [id number] [place] [address]- 3589 Nov, [facility] [place] [facility] [address] [id number] [place] [address]- 7295 Nov, [facility] [place] [facility] [address] [id number] [place] [address]- 4819 Nov, [facility] [place] [facility] [address] [id number] [place] [address]- 0886 Nov, [facility] [place] [facility] [address] [id number] [place] [address]- 0924 Nov, [facility] [place] [facility] [address] [id number] [place] [address] Nov, [facility] [place] [facility] [address] [id number] [place] [address] Nov, [facility] [place] [facility] [address] [id number] [place] [address] Oct, [facility] [place] [facility] [address] [id number] [place] [address] Oct, [facility] [place] [facility] [address] [id number] [place] [address] Oct, [facility] [place] [facility] [address] [id number] [place] [address] Oct, [facility] [place] [facility] [address] [id number] [place] [address] Oct, [facility] [place] [facility] [address] [id number] [place] [address] Oct, [facility] [place] [facility] [address] [id number] [place] [address] Oct, [facility] [place] [facility] [address] [id number] [place] [address] Oct, [facility] [place] [facility] [address] [id number] [place] [address] Oct, [facility] [place] [facility] [address] [id number] [place] [address] Oct, [facility] [place] [facility] [address] [id number] [place] [address] Oct, [facility] [place] [facility] [address] [id number] [place] [address] Oct, [facility] [place] [facility] [address] [id number] [place] [address] Oct, 2013 [facility] [place] [facility] [address] [id number] [place] [address] Oct, 2013 [facility] [place] [facility] [address] [id number] [place] [address] Oct, 2013 [facility] [place] [facility] [address] [id number] [place] [address] Oct, 2013 [facility] [place] [facility] [address] [id number] [place] [id number] Oct, 2013 [facility] [place] [facility] [address] [id number] [place] [address] Oct, 2013 [facility] [place] [facility] [address] [id number] [place] [address] Oct, [facility] [place] [facility] [address] [id number] [place] [address] Sep, [facility] [place] [facility] [address] [id number] [place] [address] Sep, [facility] [place] [facility] [address] [id number] [place] [address] Sep, [facility] [place] [facility] [address] [id number] [place] [address] Sep, [facility] [place] [facility] [address] [id number] [place] [address] Feb, [facility] [place] [facility] [address] [id number] [place] [address] Feb, [facility] [place] [facility] [address] [id number] [place] [address] Dec, [facility] [place] [facility] [address] [id number] [place] [address] Dec, [facility] [place] [facility] [address] [id number] [place] [address] Nov, [facility] [address] [id number] [place] [address] Nov, [facility] [place] [facility] [address] [id number] [place] [address] Nov, [facility] [place] [facility] [address] [id number] [place] [address] Nov, [facility] [place] [facility] [address] [id number] [place] [address] Nov, [facility] [place] [facility] [address] [id number] [place] [address] Nov, [facility] [place] [facility] [address] [id number] [place] [address] Oct, [facility] [place] [facility] [address] [id number] [place] [address] Apr, [facility] [place] [facility] [address] [id number] [place] [address] August, [facility] [place] [facility] [address] [id number] [place] [address] August, [facility] [place] [facility] [address] [id number] [place] [address] August, [facility] [place] [facility] [address] [id number] [place] [address] Jul, [facility] [place] [facility] [address] [id number] [place] [address] 28 Jun, 2011 [facility] [place] [facility] [address] [id number] [place] [address] 27 Jun, 2011 [facility] [place] [facility] [address] [id number] [place] [address] 14 Jun, 2011 [facility] [place] [facility] [address] [id number] [place] [address] 14 Jun, 2011 [facility] [place] [facility] [address] [id number] [place] [address] Jun, [facility] [address] [id number] [place] [address] Jun, [facility] [place] [facility] [address] [id number] [place] [address] May, 2011 [facility] [place] [facility] [address] [id number] [place] [address] 16 May, 2011 [facility] [place] [facility] [address] [id number] [place] [address] 09 May, 2011 [facility] [place] [facility] [address] [id number] [place] [address] 07 May, 2011 [facility] [place] [facility] [address] [id number] [place] [address] 06 May, 2011 [facility] [address] [facility] [id number] [place] [address] 06 May, 2011 [facility] [place] [facility] [address] [facility] [id number] [place] [address] Apr, [facility] [place] [facility] [address] [facility] [id number] [place] [address] 07 Mar, 2011 [facility] [place] [facility] [address] [facility] [id number] [place] [address] 06 Mar, 2011 [facility] [place] [facility] [address] [id number] [place] [address] 02 Feb, 2011 [facility] [place] [facility] [address] [id number] [place] [address] 13 Jan, 2011 [facility] [place] [facility] [address] [id number] [place] [address] 31 Mar, 2009 [facility] [place] [facility] [address] [facility] [id number] [place] [address] 15 Mar, 2009 [facility] [place] [facility] [address] [id number] [place] [address] Mar, [facility] [address] [id number] [address] Mar, [facility] [id number] [place] [address] Mar, [facility] [address] [id number] [address] Feb, [facility] [id number] [place] [address] Feb, [facility] [id number] [address] Nov, [facility] [id number] [place] [address] May, IMMUNIZATIONS No Known Immunizations SOCIAL HISTORY Never Assessed REASON FOR VISIT Follow-up PTSD/Bipolar Disorder PLAN OF CARE Activity Details Follow Up 1 Week Reason: Follow-up VITAL SIGNS MEDICATIONS Unknown Medications RESULTS No Results PROCEDURES Procedure Date Ordered Result Body Site Psychotherapy, patient &/family, 45 minutes, established patient October 16, 2017 INSTRUCTIONS MEDICATIONS ADMINISTERED No Known Medications MEDICAL (GENERAL) HISTORY Type Description Date Medical History HELP syndrome Medical History bi-polar Medical History hypertension Medical History hx of seizure x1, isolated Surgical History gallbladder 10/2013 Surgical History 03/2014 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
--- OUTSIDE RECORDS SUMMARY | 2017-12-25 20:07 | XMS REPORT ---
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 Role Phone MARIANO REDDY Unavailable PROBLEMS Type Condition ICD9-CM Code [id number] Code Onset Dates Condition Status SNOMED Code Problem Bipolar I disorder with depression F31.9 Active 87922767 Problem Amenorrhea N91.2 Active 56628239 Problem Social anxiety disorder F40.10 Active 77361243 Problem Obsessive-compulsive disorder, unspecified type F42.9 Active 205405596 Problem PTSD (post-traumatic stress disorder) F43.10 Active 08456840 Problem Mood disorder F39 Active 34212842 Problem 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 Active 37121228 ALLERGIES No Information ENCOUNTERS Encounter Location Date Diagnosis [facility] [id number] [place] [address] 33810- 0784 Jan, [facility] [id number] [place] [address] 44881- 1427 Nov, Benign paroxysmal positional vertigo of left ear H81.12 and BMI 50.0-59.9, adult Z68.43 [facility] [address] [address] 99[address] Nov, [facility] [id number] [place] [address] 09175- 8204 Nov, [facility] [id number] [place] [address] 44959- 8903 Oct, PTSD (post-traumatic stress disorder) F43.10 and Bipolar I disorder with depression F31.9 [facility] [address] [address] 2542 Oct, [facility] [id number] [address] 9353 Oct, PTSD (post-traumatic stress disorder) F43.10 and Bipolar I disorder with depression F31.9 [facility] [address] [address] 8217 Oct, [facility] [address] [address] 1992 Sep, Bipolar I disorder with depression F31.9 [place] [address] [address] 4[address] Sep, Bipolar I disorder with depression F31.9 ; PTSD (post- traumatic stress disorder) F43.10 ; 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 ; Social anxiety disorder F40.10 and BMI 50.0-59.9, adult Z68.43 [place] [address] [address] 3162 Sep, PTSD (post-traumatic stress disorder) F43.10 and Bipolar I disorder with depression F31.9 [place] [address] [address]- 7531 Sep, PTSD (post-traumatic stress disorder) F43.10 and Bipolar I disorder with depression F31.9 [place] [address] [address] 6818 August, PTSD (post-traumatic stress disorder) F43.10 and Bipolar I disorder with depression F31.9 [place] [address] [address] 7123 August, Bipolar I disorder with depression F31.9 ; PTSD (post- traumatic stress disorder) F43.10 ; 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 ; Social anxiety disorder F40.10 and BMI 50.0-59.9, adult Z68.43 [place] [address] [address] 4736 August, [place] [id number] [address]- 9378 August, Bipolar I disorder with depression F31.9 ; PTSD (post- traumatic stress disorder) F43.10 ; 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 ; Social anxiety disorder F40.10 and BMI 50.0-59.9, adult Z68.43 [place] [address] [address]- 9921 August, [place] [id number] [place] [address] 96147- 1519 August, [place] [id number] [place] [address] 25182- 2132 August, PTSD (post-traumatic stress disorder) F43.10 and Bipolar I disorder with depression F31.9 [place] [id number] [place] [address] 82087- 2529 August, [place] [id number] [place] [address] 38108- 2351 Jul, Bipolar I disorder with depression F31.9 ; PTSD (post- traumatic stress disorder) F43.10 ; 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 ; Social anxiety disorder F40.10 and BMI 50.0-59.9, adult Z68.43 [place] [address] [place] [address] 33067- 6990 Jul, PTSD (post-traumatic stress disorder) F43.10 and Bipolar I disorder with depression F31.9 [place] [address] [place] [address] 84573- 4156 Jul, Pelvic pain R10.2 ; Amenorrhea N91.2 and BMI 50.0-59.9, adult Z68.43 [place] [address] [place] [address] 15060- 4903 Jun, BMI 50.0-59.9, adult Z68.43 ; Bipolar I disorder with depression F31.9 ; PTSD (post-traumatic stress disorder) F43.10 and 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 [facility] [address] [place] [address] 00724 -0069 15 Jun, 2017 Other viral agents as the cause of diseases classified elsewhere B97.89 ; Other specified respiratory disorders J98.8 ; Bronchitis J40 and Cough R05 [facility] [address] [place] [address] 63051- 4950 13 Jun, 2017 PTSD (post-traumatic stress disorder) F43.10 [facility] [id number] [place] [address] 07948- 3016 13 Jun, 2017 PTSD (post-traumatic stress disorder) F43.10 and Bipolar I disorder with depression F31.9 [facility] [id number] [place] [address] 64045- 7478 13 May, 2017 PTSD (post-traumatic stress disorder) F43.10 and Bipolar I disorder with depression F31.9 [facility] [id number] [place] [address] 15041- 9765 12 May, 2017 [facility] [id number] [place] [address] 82892- 9211 07 May, 2017 PTSD (post-traumatic stress disorder) F43.10 and Bipolar I disorder with depression F31.9 [facility] [id number] [place] [address] 96014- 1814 Apr, PTSD (post-traumatic stress disorder) F43.10 and Bipolar I disorder with depression F31.9 [facility] [address] [place] [address] 53192- 4038 Apr, PTSD (post-traumatic stress disorder) F43.10 and Bipolar I disorder with depression F31.9 [facility] [id number] [place] [address] 64268- 0619 Mar, PTSD (post-traumatic stress disorder) F43.10 ; Obsessive- compulsive disorder, unspecified type F42.9 ; Bipolar I disorder with depression F31.9 and 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 [facility] [address] [address]- 8888 Mar, PTSD (post-traumatic stress disorder) F43.10 and Bipolar I disorder with depression F31.9 [facility] [address] [place] [address] 78164- 9476 Feb, PTSD (post-traumatic stress disorder) F43.10 and Bipolar I disorder with depression F31.9 [facility] [address] [place] [address] 07679- 4986 Feb, PTSD (post-traumatic stress disorder) F43.10 and Bipolar I disorder with depression F31.9 [facility] [address] [place] [address] 64923 -1846 Jan, Strep pharyngitis J02.0 [facility] [id number] [place] [address] 41775- 3446 Jan, [facility] [id number] [place] [address] 19446- 6136 Jan, [facility] [id number] [place] [address] 09141- 3262 Jan, PTSD (post-traumatic stress disorder) F43.10 and Bipolar I disorder with depression F31.9 [facility] [address] [address]- 9856 Jan, PTSD (post-traumatic stress disorder) F43.10 and Bipolar I disorder with depression F31.9 [facility] [address] [address]- 1346 Jan, 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 [facility] [address] [place] [address] 04488- 0266 Jan, PTSD (post-traumatic stress disorder) F43.10 ; Obsessive- compulsive disorder, unspecified type F42.9 ; Bipolar I disorder with depression F31.9 and 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 [facility] [address] [place] [address] 12593- 9625 27 Dec, 2016 Encounter for IUD removal Z30.432 and control counseling Z30.09 [facility] [id number] [place] [address] 82659- 1763 Dec, PTSD (post-traumatic stress disorder) F43.10 ; Obsessive- compulsive disorder, unspecified type F42.9 and Bipolar I disorder with depression F31.9 [facility] [id number] [place] [address] 01293- 2493 Dec, PTSD (post-traumatic stress disorder) F43.10 and Bipolar I disorder with depression F31.9 [facility] [id number] [place] [address] 25323- 2542 12 Dec, 2016 PTSD (post-traumatic stress disorder) F43.10 and Bipolar I disorder with depression F31.9 [facility] [id number] [place] [address] 23919- 1846 11 Dec, 2016 Mood disorder F39 [facility] [id number] [place] [address] 44775- 3975 08 Dec, 2016 PTSD (post-traumatic stress disorder) F43.10 ; Mood disorder F39 and Obsessive-compulsive disorder, unspecified type F42.9 [facility] [address] [place] [address] 23557- 3309 07 Dec, 2016 PTSD (post-traumatic stress disorder) F43.10 and Bipolar I disorder with depression F31.9 [facility] [address] [place] [address] 03431 -6440 Dec, Adverse drug reaction, initial encounter T88.7XXA [facility] [id number] [place] [address] 81645- 2578 Dec, [facility] [id number] [place] [address] 12323- 1728 Nov, PTSD (post-traumatic stress disorder) F43.10 and Bipolar I disorder with depression F31.9 [facility] [id number] [address]- 9531 Nov, PTSD (post-traumatic stress disorder) F43.10 ; Mood disorder F39 and Obsessive-compulsive disorder, unspecified type F42.9 [facility] [id number] [address]- 4716 Nov, PTSD (post-traumatic stress disorder) F43.10 and Bipolar I disorder with depression F31.9 [facility] [address] [facility] [id number] [place] [address] 66443- 6696 Nov, PTSD (post-traumatic stress disorder) F43.10 and Bipolar I disorder with depression F31.9 [facility] [address] [facility] [id number] [address] Nov, [facility] [id number] [place] [address] 18459- 5683 Nov, PTSD (post-traumatic stress disorder) F43.10 and Bipolar I disorder with depression F31.9 [facility] [id number] [place] [address] 00033- 5186 Nov, PTSD (post-traumatic stress disorder) F43.10 and Bipolar I disorder with depression F31.9 [facility] [address] [address]- 9342 Oct, [facility] [id number] [place] [address] 75057 2543 Oct, PTSD (post-traumatic stress disorder) F43.10 ; Mood disorder F39 and Obsessive-compulsive disorder, unspecified type F42.9 [facility] [id number] [place] [address] 35577959- 7256 Oct, PTSD (post-traumatic stress disorder) F43.10 and Bipolar I disorder with depression F31.9 [facility] [id number] [place] [address] 76086- 4454 Oct, PTSD (post-traumatic stress disorder) F43.10 and Bipolar I disorder with depression F31.9 [facility] [address] [address]- 9546 Oct, PTSD (post-traumatic stress disorder) F43.10 ; Mood disorder F39 and Obsessive-compulsive disorder, unspecified type F42.9 [facility] [address] [address]- 1140 Oct, [facility] [id number] [place] [address] 39117- 3558 Oct, PTSD (post-traumatic stress disorder) F43.10 and Bipolar I disorder with depression F31.9 [facility] [address] [address]- 1804 Oct, PTSD (post-traumatic stress disorder) F43.10 ; Mood disorder F39 and Obsessive-compulsive disorder, unspecified type F42.9 [facility] [address] [address]- 3729 Sep, PTSD (post-traumatic stress disorder) F43.10 and Bipolar I disorder with depression F31.9 [facility] [address] [address]- 1313 Sep, PTSD (post-traumatic stress disorder) F43.10 ; Mood disorder F39 and Obsessive-compulsive disorder, unspecified type F42.9 [facility] [address] [address]- 7692 Sep, PTSD (post-traumatic stress disorder) F43.10 and Bipolar I disorder with depression F31.9 [facility] [address] [address]- 0485 Sep, PTSD (post-traumatic stress disorder) F43.10 and Bipolar I disorder with depression F31.9 [facility] [address] [address]- 8447 August, PTSD (post-traumatic stress disorder) F43.10 and Bipolar I disorder with depression F31.9 [facility] [address] [address]64 August, Pharyngitis due to other organism J02.8 [facility] [address] [address]- 7916 August, PTSD (post-traumatic stress disorder) F43.10 ; Bipolar 1 disorder, mixed F31.60 and 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 [facility] [address] [address]- 9470 August, PTSD (post-traumatic stress disorder) F43.10 and Bipolar I disorder with depression F31.9 [facility] [address] [address]- 3110 Jul, PTSD (post-traumatic stress disorder) F43.10 and Bipolar I disorder with depression F31.9 [facility] [address] [address]- 4751 Jul, PTSD (post-traumatic stress disorder) F43.10 and Bipolar I disorder with depression F31.9 [facility] [address] [place] [address] 11644- 1435 Jul, PTSD (post-traumatic stress disorder) F43.10 and Bipolar I disorder with depression F31.9 [facility] [address] [address]- 0358 Jul, Other alf (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.899 [facility] [address] [address]- 4113 Jun, PTSD (post-traumatic stress disorder) F43.10 and Bipolar I disorder with depression F31.9 [facility] [id number] [address]- 2163 Jun, Bipolar 1 disorder, mixed F31.60 ; PTSD (post-traumatic stress disorder) F43.10 and 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 [place] [id number] [place] [address] 66482- 4315 Jun, PTSD (post-traumatic stress disorder) F43.10 and Depression , unspecified depression type F32.9 [place] [id number] [place] [address] 39969- 2850 Jun, PTSD (post-traumatic stress disorder) F43.10 and Depression , unspecified depression type F32.9 [place] [address] 73060- 4366 Jun, PTSD (post-traumatic stress disorder) F43.10 and Depression , unspecified depression type F32.9 [facility] [place] [address] 67781 -0298 May, Fever, unspecified fever cause R50.9 and Gastroenteritis K52.9 [place] [address] 23224- 6239 Mar, Sprain of other ligament of right ankle, subsequent encounter S93.491D [place] [address] 62134- 7366 Mar, [facility] [place] [address] 78320 -6679 Feb, Scabies infestation B86 [place] [address] 13114- 6055 Feb, Dental caries K02.9 [place] [address] 07381- 0740 Jan, [facility] [address] 40790 -1261 Jan, Pharyngitis, unspecified etiology J02.9 [place] [address] 96078- 3010 Jan, [place] [address] [place] [address]- 4559 Jan, Bipolar affective disorder, remission status unspecified F31.9 [place] [id number] [place] [address] 94769- 1526 Jan, Encounter for dental examination and cleaning without abnormal findings Z01.20 [facility] [id number] [place] [address] 61943- 5218 Jan, Bipolar affective disorder, remission status unspecified F31.9 [place] [id number] [place] [address] 67975- 2172 29 Dec, 2015 Bipolar affective disorder, remission status unspecified F31.9 and Depression, unspecified depression type F32.9 [place] [id number] [place] [address] 28728- 0464 Dec, Unspecified mood [affective] disorder F39 and Generalized anxiety disorder F41.1 [place] [id number] [place] [address] 23234- 4921 08 Dec, 2015 Depression, unspecified depression type F32.9 [place] [id number] [place] [address] 61165- 0717 Nov, Dental caries K02.9 [place] [id number] [place] [address] 23582- 0077 Nov, Dental examination Z01.20 [place] [id number] [place] [address] 50405- 5448 24 Sep, 2015 Bipolar affective disorder, remission status unspecified F31.9 [place] [address] [place] [address] 64411- 6074 August, Tension headache G44.209 [facility] [id number] [place] [address] 33387 -7810 Jul, [facility] [address] [place] [address] 81637 -2737 Jul, Upper respiratory infection J06.9 and Gastroenteritis K52.9 [facility] [address] [address]- 6700 Jun, [facility]chitis J40 [facility] [id number] [place] [address] 00551 -0127 Feb, Thoracic back pain M54.6 and Left shoulder pain M25.512 [facility] [id number] [place] [address] 13953- 4981 Feb, [facility] [id number] [place] [address] 21686- 4187 Jul, [facility] [id number] [place] [address] 30133- 6116 Jul, [facility] [id number] [place] [address] 06873- 1170 Apr, [facility] [id number] [place] [address] 34651- 6824 Apr, [facility] [id number] [place] [address] 04065- 7811 Apr, [facility] [id number] [place] [address] 81733- 7101 Apr, [facility] [id number] [place] [address] 10537- 1925 Mar, [facility] [id number] [place] [address] 41178- 9934 Mar, [facility] [id number] [place] [address] 40689- 6193 Mar, [facility] [id number] [place] [address] 48868- 1490 Mar, [facility] [id number] [place] [address] 79101- 1888 Feb, [facility] [id number] [place] [address] 41271- 6965 Feb, [facility] [place] [facility] [address] [id number] [place] [address]- 2083 Feb, [facility] [place] [facility] [address] [id number] [place] [address]- 3426 Feb, [facility] [place] [facility] [address] [id number] [place] [address]- 0345 15 Jan, 2014 [facility] [place] [facility] [address] [id number] [place] [address]- 9010 Jan, [facility] [place] [facility] [address] [id number] [place] [address]- 3015 Jan, [facility] [place] [facility] [address] [id number] [place] [address]- 3871 Jan, [facility] [place] [facility] [address] [id number] [place] [address]- 0640 Jan, [facility] [place] [facility] [address] [id number] [place] [address]- 7787 Jan, [facility] [place] [facility] [address] [id number] [place] [address]- 2236 Dec, [facility] [place] [facility] [address] [id number] [place] [address]- 5693 Dec, [facility] [place] [facility] [address] [id number] [address]- 5014 Nov, [facility] [place] [facility] [address] [id number] [place] [address]- 6192 Nov, [facility] [place] [facility] [address] [id number] [place] [address]- 3860 Nov, [facility] [place] [facility] [address] [id number] [place] [address]- 1352 Nov, [facility] [place] [facility] [address] [id number] [address]- 0904 Nov, [facility] [place] [facility] [address] [id number] [address]- 0764 Nov, [facility] [place] [facility] [address] [id number] [place] [address]- 9680 Nov, [facility] [place] [facility] [address] [id number] [place] [address]- 7553 Nov, [facility] [place] [facility] [address] [id number] [place] [address]- 8004 Nov, [facility] [place] [facility] [address] [id number] [place] [address]- 9406 Oct, [facility] [place] [facility] [address] [id number] [place] [address]- 4650 Oct, [facility] [place] [facility] [address] [id number] [place] [address]- 3492 Oct, [facility] [place] [facility] [address] [id number] [place] [address]- 5352 Oct, [facility] [place] [facility] [address] [id number] [place] [address] Oct, [facility] [place] [facility] [address] [id number] [place] [address] Oct, [facility] [place] [facility] [address] [id number] [place] [address] Oct, [facility] [place] [facility] [address] [id number] [place] [address] Oct, [facility] [place] [facility] [address] [id number] [place] [address] Oct, [facility] [place] [facility] [address] [id number] [place] [address] Oct, [facility] [place] [facility] [address] [id number] [place] [address] Oct, [facility] [place] [facility] [address] [id number] [place] [address] Oct, [facility] [place] [facility] [address] [id number] [place] [address] Oct, 2013 [facility] [place] [facility] [address] [id number] [place] [address] Oct, 2013 [facility] [place] [facility] [address] [id number] [place] [address] Oct, 2013 [facility] [place] [facility] [address] [id number] [place] [address] Oct, 2013 [facility] [place] [facility] [address] [id number] [place] [address] Oct, 2013 [facility] [place] [facility] [address] [id number] [place] [address] Oct, 2013 [facility] [place] [facility] [address] [id number] [place] [address] Oct, 2013 [facility] [place] [facility] [address] [id number] [place] [address] Sep, [facility] [place] [facility] [address] [id number] [place] [address] Sep, [facility] [place] [facility] [address] [id number] [place] [address] Sep, [facility] [place] [facility] [address] [id number] [place] [address] Sep, [facility] [place] [facility] [address] [id number] [place] [address] Feb, [facility] [place] [facility] [address] [id number] [place] [address] Feb, [facility] [place] [facility] [address] [id number] [place] [address] Dec, [facility] [place] [facility] [address] [id number] [place] [address] Dec, [facility] [place] [facility] [address] [id number] [place] [address] Nov, [facility] [place] [facility] [address] [id number] [place] [address] Nov, [facility] [place] [facility] [address] [id number] [place] [address] Nov, [facility] [place] [facility] [address] [id number] [place] [address] Nov, [facility] [place] [facility] [address] [id number] [place] [address] Nov, [facility] [place] [facility] [address] [id number] [place] [address] Nov, [facility] [place] [facility] [address] [id number] [place] [address] Oct, [facility] [place] [facility] [address] [id number] [place] [address] Apr, [facility] [place] [facility] [address] [id number] [place] [address] August, [facility] [place] [facility] [address] [id number] [place] [address] August, [facility] [place] [facility] [address] [id number] [place] [address] August, [facility] [place] [facility] [address] [id number] [place] [address] Jul, [facility] [place] [facility] [address] [id number] [place] [address] 28 Jun, 2011 [facility] [place] [facility] [address] [id number] [place] [address] 27 Jun, 2011 [facility] [place] [facility] [address] [id number] [place] [address] 14 Jun, 2011 [facility] [place] [facility] [address] [id number] [place] [address] 14 Jun, 2011 [facility] [place] [facility] [address] [id number] [place] [address] Jun, [facility] [address] [id number] [place] [address] Jun, [facility] [place] [facility] [address] [id number] [place] [address] May, 2011 [facility] [address] [id number] [place] [address] 16 May, 2011 [facility] [place] [facility] [address] [id number] [place] [address] 09 May, 2011 [facility] [address] [id number] [place] [address] 07 May, 2011 [facility] [address] [facility] [id number] [place] [address] 06 May, 2011 [facility] [place] [facility] [id number] [place] [address] 06 May, 2011 [facility] [address] [id number] [place] [address] Apr, [facility] [place] [facility] [address] [facility] [id number] [place] [address] 07 Mar, 2011 [facility] [address] [facility] [id number] [place] [address] 06 Mar, 2011 [facility] [place] [facility] [address] [facility] [id number] [place] [address] Feb, [facility] [place] [facility] [address] [id number] [place] [address] 13 Jan, 2011 [facility] [place] [facility] [address] [facility] [id number] [place] [address] 31 Mar, 2009 [facility] [place] [facility] [address] [facility] [id number] [place] [address] 15 Mar, 2009 [facility] [place] [facility] [address] [facility] [id number] [place] [address] Mar, [facility] [id number] [address] Mar, [facility] [id number] [address] Mar, [facility] [id number] [address] Feb, [facility] [id number] [address] Feb, [facility] [id number] [address] Nov, [facility] [id number] [address] May, IMMUNIZATIONS No Known Immunizations SOCIAL HISTORY Never Assessed REASON FOR VISIT PALS-latuda PLAN OF CARE VITAL SIGNS MEDICATIONS Medication Instructions Dosage Frequency Start Date End Date Duration Status Latuda 120 MG Orally Once a day at supper with food 1 tablet 90 days Active RESULTS No Results PROCEDURES No Known procedures INSTRUCTIONS MEDICATIONS ADMINISTERED No Known Medications MEDICAL (GENERAL) HISTORY Type Description Date Medical History HELP syndrome Medical History bi-polar Medical History hypertension Medical History hx of seizure x1, isolated Surgical History gallbladder 10/2013 Surgical History 03/2014 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
--- OUTSIDE RECORDS SUMMARY | 2017-12-25 20:07 | XMS REPORT ---
Author Author MARIANO REDDY Organization [facility] Address [address] [place] [address] Care Team Providers Care Knocker Off Name Role Phone MARIANO REDDY Unavailable PROBLEMS Type Condition ICD9-CM Code [id number] Code Onset Dates Condition Status SNOMED Code Problem Bipolar I disorder with depression F31.9 Active 24146159 Problem Amenorrhea N91.2 Active 31148356 Problem Social anxiety disorder F40.10 Active 11028371 Problem Obsessive-compulsive disorder, unspecified type F42.9 Active 282081389 Problem PTSD (post-traumatic stress disorder) F43.10 Active 02277223 Problem Mood disorder F39 Active 12906196 Problem 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 Active 55812491 ALLERGIES No Information ENCOUNTERS Encounter Location Date Diagnosis [facility] [id number] [place] [address] 61320- 3309 Jan, [facility] [id number] [place] [address] 31970- 6321 Nov, Benign paroxysmal positional vertigo of left ear H81.12 and BMI 50.0-59.9, adult Z68.43 [facility] [address] [address] Nov, [facility] [id number] [place] [address] 44749- 5434 Nov, [facility] [id number] [place] [address] 73759- 7269 Oct, PTSD (post-traumatic stress disorder) F43.10 and Bipolar I disorder with depression F31.9 [facility] [address] [address] Oct, [facility] [id number] [address] 0645 Oct, PTSD (post-traumatic stress disorder) F43.10 and Bipolar I disorder with depression F31.9 [facility] [place] [address] [address] Oct, [facility] [address] [address] 9772 Sep, Bipolar I disorder with depression F31.9 [place] [address] [address] Sep, Bipolar I disorder with depression F31.9 ; PTSD (post- traumatic stress disorder) F43.10 ; 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 ; Social anxiety disorder F40.10 and BMI 50.0-59.9, adult Z68.43 [place] [address] [address] 37[address] Sep, PTSD (post-traumatic stress disorder) F43.10 and Bipolar I disorder with depression F31.9 [place] [address] [address] 2487 Sep, PTSD (post-traumatic stress disorder) F43.10 and Bipolar I disorder with depression F31.9 [place] [address] [address] 9316 August, PTSD (post-traumatic stress disorder) F43.10 and Bipolar I disorder with depression F31.9 [place] [id number] [address] 5149 August, Bipolar I disorder with depression F31.9 ; PTSD (post- traumatic stress disorder) F43.10 ; 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 ; Social anxiety disorder F40.10 and BMI 50.0-59.9, adult Z68.43 [place] [address] [address]63 August, [place] [id number] [address] 4661 August, Bipolar I disorder with depression F31.9 ; PTSD (post- traumatic stress disorder) F43.10 ; 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 ; Social anxiety disorder F40.10 and BMI 50.0-59.9, adult Z68.43 [place] [address] [address] 0038 August, [place] [id number] [place] [address] 80148- 1710 August, [place] [id number] [place] [address] 67167- 0907 August, PTSD (post-traumatic stress disorder) F43.10 and Bipolar I disorder with depression F31.9 [place] [id number] [place] [address] 83681- 1310 August, [place] [id number] [place] [address] 24138- 4432 Jul, Bipolar I disorder with depression F31.9 ; PTSD (post- traumatic stress disorder) F43.10 ; 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 ; Social anxiety disorder F40.10 and BMI 50.0-59.9, adult Z68.43 [place] [id number] [place] [address] 72960- 1304 Jul, PTSD (post-traumatic stress disorder) F43.10 and Bipolar I disorder with depression F31.9 [place] [id number] [place] [address] 23849- 3756 Jul, Pelvic pain R10.2 ; Amenorrhea N91.2 and BMI 50.0-59.9, adult Z68.43 [place] [id number] [place] [address] 40646- 5561 Jun, BMI 50.0-59.9, adult Z68.43 ; Bipolar I disorder with depression F31.9 ; PTSD (post-traumatic stress disorder) F43.10 and 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 [facility] [id number] [place] [address] 02957 -2296 15 Jun, 2017 Other viral agents as the cause of diseases classified elsewhere B97.89 ; Other specified respiratory disorders J98.8 ; Bronchitis J40 and Cough R05 [facility] [id number] [place] [address] 94598- 3322 13 Jun, 2017 PTSD (post-traumatic stress disorder) F43.10 [facility] [id number] [place] [address] 09434- 7535 13 Jun, 2017 PTSD (post-traumatic stress disorder) F43.10 and Bipolar I disorder with depression F31.9 [facility] [id number] [place] [address] 64300- 5503 13 May, 2017 PTSD (post-traumatic stress disorder) F43.10 and Bipolar I disorder with depression F31.9 [facility] [id number] [place] [address] 12420- 3415 12 May, 2017 [facility] [id number] [place] [address] 36581- 4257 07 May, 2017 PTSD (post-traumatic stress disorder) F43.10 and Bipolar I disorder with depression F31.9 [facility] [id number] [place] [address] 40083- 1235 Apr, PTSD (post-traumatic stress disorder) F43.10 and Bipolar I disorder with depression F31.9 [facility] [id number] [place] [address] 32559- 3466 Apr, PTSD (post-traumatic stress disorder) F43.10 and Bipolar I disorder with depression F31.9 [facility] [id number] [place] [address] 53462- 1980 Mar, PTSD (post-traumatic stress disorder) F43.10 ; Obsessive- compulsive disorder, unspecified type F42.9 ; Bipolar I disorder with depression F31.9 and Other manager intermediate (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.899 [facility] [address] [address]- 5906 Mar, PTSD (post-traumatic stress disorder) F43.10 and Bipolar I disorder with depression F31.9 [facility] [id number] [place] [address] 97237- 6676 Feb, PTSD (post-traumatic stress disorder) F43.10 and Bipolar I disorder with depression F31.9 [facility] [id number] [place] [address] 35885- 7086 Feb, PTSD (post-traumatic stress disorder) F43.10 and Bipolar I disorder with depression F31.9 [facility] [id number] [place] [address] 30037 -9606 Jan, Strep pharyngitis J02.0 [facility] [id number] [place] [address] 28954- 6326 Jan, [facility] [place] [id number] [place] [address] 63350- 0286 Jan, [facility] [id number] [place] [address] 46946- 2401 Jan, PTSD (post-traumatic stress disorder) F43.10 and Bipolar I disorder with depression F31.9 [facility] [address] [address]- 1976 Jan, PTSD (post-traumatic stress disorder) F43.10 and Bipolar I disorder with depression F31.9 [facility] [place] [address] [address]- 6006 Jan, Other manager intermediate (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.899 [facility] [id number] [place] [address] 89182- 6286 Jan, PTSD (post-traumatic stress disorder) F43.10 ; Obsessive- compulsive disorder, unspecified type F42.9 ; Bipolar I disorder with depression F31.9 and Other manager intermediate (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.899 [facility] [id number] [place] [address] 96187- 9593 27 Dec, 2016 Encounter for IUD removal Z30.432 and control counseling Z30.09 [facility] [place] [id number] [place] [address] 84890- 3032 Dec, PTSD (post-traumatic stress disorder) F43.10 ; Obsessive- compulsive disorder, unspecified type F42.9 and Bipolar I disorder with depression F31.9 [facility] [place] [id number] [place] [address] 25896- 5165 Dec, PTSD (post-traumatic stress disorder) F43.10 and Bipolar I disorder with depression F31.9 [facility] [id number] [place] [address] 89107- 8107 12 Dec, 2016 PTSD (post-traumatic stress disorder) F43.10 and Bipolar I disorder with depression F31.9 [facility] [id number] [place] [address] 48473- 7278 11 Dec, 2016 Mood disorder F39 [facility] [id number] [place] [address] 13305- 6076 08 Dec, 2016 PTSD (post-traumatic stress disorder) F43.10 ; Mood disorder F39 and Obsessive-compulsive disorder, unspecified type F42.9 [facility] [id number] [place] [address] 10428- 8059 07 Dec, 2016 PTSD (post-traumatic stress disorder) F43.10 and Bipolar I disorder with depression F31.9 [facility] [id number] [place] [address] 02193 -0541 Dec, Adverse drug reaction, initial encounter T88.7XXA [facility] [place] [id number] [place] [address] 85139- 0308 Dec, [facility] [id number] [place] [address] 27837- 6130 Nov, PTSD (post-traumatic stress disorder) F43.10 and Bipolar I disorder with depression F31.9 [facility] [id number] [address]- 2359 Nov, PTSD (post-traumatic stress disorder) F43.10 ; Mood disorder F39 and Obsessive-compulsive disorder, unspecified type F42.9 [facility] [id number] [address]- 5156 Nov, PTSD (post-traumatic stress disorder) F43.10 and Bipolar I disorder with depression F31.9 [facility] [address] [facility] [id number] [place] [address] 26143- 5956 Nov, PTSD (post-traumatic stress disorder) F43.10 and Bipolar I disorder with depression F31.9 [facility] [address] [facility] [id number] [address] Nov, [facility] [id number] [place] [address] 12147- 1102 Nov, PTSD (post-traumatic stress disorder) F43.10 and Bipolar I disorder with depression F31.9 [facility] [place] [id number] [place] [address] 88127- 8676 Nov, PTSD (post-traumatic stress disorder) F43.10 and Bipolar I disorder with depression F31.9 [facility] [address] [address]- 3812 Oct, [facility] [id number] [place] [address] 10836 2548 Oct, PTSD (post-traumatic stress disorder) F43.10 ; Mood disorder F39 and Obsessive-compulsive disorder, unspecified type F42.9 [facility] [id number] [place] [address] [id number]- 0586 Oct, PTSD (post-traumatic stress disorder) F43.10 and Bipolar I disorder with depression F31.9 [facility] [id number] [place] [address] 58362- 8220 Oct, PTSD (post-traumatic stress disorder) F43.10 and Bipolar I disorder with depression F31.9 [facility] [place] [address] [address]- 7073 Oct, PTSD (post-traumatic stress disorder) F43.10 ; Mood disorder F39 and Obsessive-compulsive disorder, unspecified type F42.9 [facility] [place] [address] [address]- 6672 Oct, [facility] [id number] [place] [address] 32394- 9359 Oct, PTSD (post-traumatic stress disorder) F43.10 and Bipolar I disorder with depression F31.9 [facility] [address] [address]- 5954 Oct, PTSD (post-traumatic stress disorder) F43.10 ; Mood disorder F39 and Obsessive-compulsive disorder, unspecified type F42.9 [facility] [address] [address]- 1665 Sep, PTSD (post-traumatic stress disorder) F43.10 and Bipolar I disorder with depression F31.9 [facility] [address] [address]- 5173 Sep, PTSD (post-traumatic stress disorder) F43.10 ; Mood disorder F39 and Obsessive-compulsive disorder, unspecified type F42.9 [facility] [address] [address]- 3052 Sep, PTSD (post-traumatic stress disorder) F43.10 and Bipolar I disorder with depression F31.9 [facility] [place] [address] [address]- 1008 Sep, PTSD (post-traumatic stress disorder) F43.10 and Bipolar I disorder with depression F31.9 [facility] [place] [address] [address]- 9043 August, PTSD (post-traumatic stress disorder) F43.10 and Bipolar I disorder with depression F31.[address] [facility] [address] [address] August, Pharyngitis due to other organism J02.8 [facility] [address] [address]- 3746 August, PTSD (post-traumatic stress disorder) F43.10 ; Bipolar 1 disorder, mixed F31.60 and Other manager intermediate (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.899 [facility] [place] [address] [address]- 2574 August, PTSD (post-traumatic stress disorder) F43.10 and Bipolar I disorder with depression F31.9 [facility] [place] [address] [address]- 8465 Jul, PTSD (post-traumatic stress disorder) F43.10 and Bipolar I disorder with depression F31.9 [facility] [address] [address]- 6646 Jul, PTSD (post-traumatic stress disorder) F43.10 and Bipolar I disorder with depression F31.9 [facility] [place] [id number] [place] [address] 31237- 6696 Jul, PTSD (post-traumatic stress disorder) F43.10 and Bipolar I disorder with depression F31.9 [facility] [place] [address] [address]- 4740 Jul, Other alf (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.899 [facility] [place] [address] [address]- 1848 Jun, PTSD (post-traumatic stress disorder) F43.10 and Bipolar I disorder with depression F31.9 [facility] [place] [id number] [address]- 3158 Jun, Bipolar 1 disorder, mixed F31.60 ; PTSD (post-traumatic stress disorder) F43.10 and Other manager intermediate (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.899 [place] [id number] [place] [address] 58043- 2394 Jun, PTSD (post-traumatic stress disorder) F43.10 and Depression , unspecified depression type F32.9 [place] [id number] [place] [address] 93619- 3578 Jun, PTSD (post-traumatic stress disorder) F43.10 and Depression , unspecified depression type F32.9 [place] [address] 13896- 2171 Jun, PTSD (post-traumatic stress disorder) F43.10 and Depression , unspecified depression type F32.[address] [facility] [place] [address] 83809 -[address]403 May, Fever, unspecified fever cause R50.9 and Gastroenteritis K52.9 [place] [address] 44845- 5016 Mar, Sprain of other ligament of right ankle, subsequent encounter S93.491D [place] [address] 27846- 3246 Mar, [facility] [place] [address] 55876 -0198 Feb, Scabies infestation B86 [place] [address] 85795- 7723 Feb, Dental caries K02.9 [place] [address] 53643- 9197 Jan, [facility] [address] 72863 -8079 Jan, Pharyngitis, unspecified etiology J02.9 [place] [address] 23501- 3060 Jan, [place] [address] [place] [address]- 7394 Jan, Bipolar affective disorder, remission status unspecified F31.9 [place] [id number] [place] [address] 71131- 5338 Jan, Encounter for dental examination and cleaning without abnormal findings Z01.20 [facility] [place] [id number] [place] [address] 69427- 4635 Jan, Bipolar affective disorder, remission status unspecified F31.9 [place] [id number] [place] [address] 25530- 8757 29 Dec, 2015 Bipolar affective disorder, remission status unspecified F31.9 and Depression, unspecified depression type F32.9 [place] [id number] [place] [address] 88753- 9309 Dec, Unspecified mood [affective] disorder F39 and Generalized anxiety disorder F41.1 [place] [id number] [place] [address] 22214- 2568 08 Dec, 2015 Depression, unspecified depression type F32.9 [place] [id number] [place] [address] 79088- 6879 Nov, Dental caries K02.9 [place] [id number] [place] [address] 09071- 1807 Nov, Dental examination Z01.20 [place] [id number] [place] [address] 77379- 1632 24 Sep, 2015 Bipolar affective disorder, remission status unspecified F31.9 [place] [address] [place] [address] 92711- 2469 August, Tension headache G44.[address] [facility] [id number] [place] [address] 04900 -0293 Jul, [facility] [address] [place] [address] 12419 -0396 Jul, Upper respiratory infection J06.9 and Gastroenteritis K52.9 [facility] [place] [address] [address]- 5796 Jun, Bronchitis J40 [facility] [id number] [place] [address] 59147 -7666 Feb, Thoracic back pain M54.6 and Left shoulder pain M25.512 [facility] [place] [id number] [place] [address] 13599- 1409 Feb, [facility] [place] [id number] [place] [address] 38623- 8262 Jul, [facility] [place] [id number] [place] [address] 48807- 6993 Jul, [facility] [place] [id number] [place] [address] 40041- 4634 Apr, [facility] [place] [id number] [place] [address] 84957- 9638 Apr, [facility] [place] [id number] [place] [address] 40827- 7138 Apr, [facility] [place] [id number] [place] [address] [id number] [id number] Apr, [facility] [place] [id number] [place] [address] [phone] Mar, [facility] [place] [id number] [place] [address] [phone] [phone] Mar, [facility] [place] [id number] [place] [address] [phone] Mar, [facility] [place] [id number] [place] [address] [phone] [phone] Mar, [facility] [place] [id number] [place] [address] [id number] Feb, [facility] [place] [id number] [place] [address] [phone] [id number] Feb, [facility] [place] [facility] [address] [id number] [place] [address]151 Feb, [facility] [place] [facility] [address] [id number] [place] [address] 3518 Feb, [facility] [place] [facility] [address] [id number] [place] [id number]- [address] 15 Jan, 2014 [facility] [place] [facility] [address] [id number] [place] [address]- 6250 Jan, [facility] [place] [facility] [address] [id number] [place] [address]- 4343 Jan, [facility] [place] [facility] [address] [id number] [place] [address]- 8607 Jan, [facility] [place] [facility] [address] [address] [id number] [place] [address] Jan, [facility] [place] [facility] [address] [id number] [place] [address] Jan, [facility] [place] [facility] [address] [id number] [place] [address] Dec, [facility] [place] [facility] [address] [id number] [place] [address] Dec, [facility] [place] [facility] [address] [id number] [place] [address] Nov, [facility] [place] [facility] [address] [id number] [place] [address] Nov, [facility] [place] [facility] [address] [id number] [place] [address] Nov, [facility] [place] [facility] [address] [id number] [place] [address] Nov, [facility] [place] [facility] [address] [id number] [place] [address] Nov, [facility] [place] [facility] [address] [id number] [place] [address] Nov, [facility] [place] [facility] [address] [id number] [place] [address] Nov, [facility] [place] [facility] [address] [id number] [place] [address] Nov, [facility] [place] [facility] [address] [id number] [place] [address] Nov, [facility] [place] [facility] [address] [id number] [place] [address] Oct, [facility] [place] [facility] [address] [id number] [place] [address] Oct, [facility] [place] [facility] [address] [id number] [place] [address] Oct, [facility] [place] [facility] [address] [id number] [place] [address] Oct, [facility] [place] [facility] [address] [id number] [place] [address] 286[address] Oct, [facility] [place] [facility] [address] [id number] [place] [address] Oct, [facility] [place] [facility] [address] [id number] [place] [address] Oct, [facility] [place] [facility] [address] [id number] [place] [address] Oct, [facility] [place] [facility] [address] [id number] [place] [address] Oct, [facility] [place] [facility] [address] [id number] [place] [address] Oct, [facility] [place] [facility] [address] [id number] [place] [address] Oct, [facility] [place] [facility] [address] [id number] [place] [address] Oct, [facility] [place] [facility] [address] [id number] [place] [address] Oct, 2013 [facility] [place] [facility] [address] [id number] [place] [address]- [address] Oct, 2013 [facility] [place] [facility] [address] [id number] [place] [address]- [address] Oct, 2013 [facility] [place] [facility] [address] [id number] [place] [address] Oct, 2013 [facility] [place] [facility] [address] [id number] [place] [address] Oct, 2013 [facility] [place] [facility] [address] [id number] [place] [address]- [address] Oct, 2013 [facility] [place] [facility] [address] [id number] [place] [address]- 6068 Oct, 2013 [facility] [place] [facility] [address] [id number] [place] [address] Sep, [facility] [place] [facility] [address] [id number] [place] [address] Sep, [facility] [place] [facility] [address] [id number] [place] [address] 139[address] Sep, [facility] [place] [facility] [address] [id number] [place] [address] Sep, [facility] [place] [facility] [address] [id number] [place] [address] Feb, [facility] [place] [facility] [address] [id number] [place] [address] 2547 Feb, [facility] [place] [facility] [address] [id number] [place] [address]- [address]46 Dec, [facility] [place] [facility] [address] [id number] [place] [address]- 2546 Dec, [facility] [place] [facility] [address] [id number] [place] [address]- [address] Nov, [facility] [place] [facility] [address] [id number] [place] [address] Nov, [facility] [place] [facility] [address] [id number] [place] [address]- 1337 Nov, [facility] [place] [facility] [address] [id number] [place] [address]- [address] Nov, [facility] [place] [facility] [address] [id number] [place] [address]- 1480 Nov, [facility] [place] [facility] [address] [id number] [place] [address] Nov, [facility] [place] [facility] [address] [id number] [place] [address]- [address] Oct, [facility] [place] [facility] [address] [id number] [place] [address]- [address] Apr, [facility] [place] [facility] [address] [id number] [place] [address] August, [facility] [place] [facility] [address] [id number] [place] [address]- [address] August, [facility] [place] [facility] [address] [id number] [place] [address]- [address]60 August, [facility] [place] [facility] [address] [id number] [place] [address] Jul, [facility] [place] [facility] [address] [id number] [place] [address]- [address] 28 Jun, 2011 [facility] [place] [facility] [address] [id number] [place] [address]- [address] 27 Jun, 2011 [facility] [place] [facility] [address] [id number] [place] [address]- [address] 14 Jun, 2011 [facility] [place] [facility] [address] [id number] [place] [address]- 8694 14 Jun, 2011 [facility] [place] [facility] [address] [id number] [place] [address] 2546 Jun, [facility] [address] [id number] [place] [address]- [address]706 Jun, [facility] [place] [facility] [address] [id number] [place] [address] 2546 May, 2011 [facility] [address] [id number] [place] [address]- [address] 16 May, 2011 [facility] [place] [facility] [address] [id number] [place] [address]- [address] 09 May, 2011 [facility] [address] [id number] [place] [address]- [address] 07 May, 2011 [facility] [address] [facility] [id number] [place] [address]- [address] 06 May, 2011 [facility] [place] [facility] [address] [id number] [place] [address] 06 May, 2011 [facility] [address] [id number] [place] [address]- [address] Apr, [facility] [place] [facility] [address] [facility] [id number] [place] [address]- [address] 07 Mar, 2011 [facility] [address] [facility] [id number] [place] [address]- 2846 06 Mar, 2011 [facility] [place] [facility] [address] [facility] [id number] [place] [address]- 2546 Feb, [facility] [place] [facility] [address] [id number] [place] [address]- [address]46 13 Jan, 2011 [facility] [place] [facility] [address] [facility] [id number] [place] [address]- [address] 31 Mar, 2009 [facility] [place] [facility] [address] [facility] [id number] [place] [address]- [address]46 15 Mar, 2009 [facility] [place] [facility] [address] [facility] [id number] [place] [address] 2543 Mar, [facility] [place] [address] [facility] [id number] [place] [address] Mar, [facility] [place] [address] [id number] [place] [address] Mar, [facility] [place] [address] [facility] [id number] [place] [address]- [address] Feb, [facility] [place] [address] [id number] [place] [address]- [address] Feb, [facility] [place] [address] [facility] [id number] [place] [address] Nov, [facility] [place] [address] [facility] [id number] [place] [address] May, IMMUNIZATIONS No Known Immunizations SOCIAL HISTORY Never Assessed REASON FOR VISIT rei/Dung GA PLAN OF CARE Activity Details Follow Up 2 Months, prn Reason: VITAL SIGNS Height 64 in 2017-10-09 Weight 300.6 lbs 2017-10-09 Heart Rate 104 bpm 2017-10-09 Respiratory Rate 20 2017-10-09 BMI 51.59 kg/m2 2017-10-09 Blood pressure systolic 134 mmHg 2017-10-09 Blood pressure diastolic 80 mmHg 2017-10-09 MEDICATIONS Medication Instructions Dosage Frequency Start Date End Date Duration Status Naprosyn 500 mg Orally every 12 hrs 1 tablet with food or milk as needed 12h August, Active Latuda 120 MG Orally Once a day at supper with food 1 tablet 30 days Active Valium 2 MG Orally Twice a day prn 1 tablet August, Active Sprintec 28 0.25-35 MG-MCG Orally Once a day 1 tablet 24h 27 Dec, 2016 30 day(s) Active Trileptal 300 MG Orally Twice a day 1.5 tab 12h August, 30 days Active RESULTS No Results PROCEDURES No Known procedures INSTRUCTIONS MEDICATIONS ADMINISTERED No Known Medications MEDICAL (GENERAL) HISTORY Type Description Date Medical History HELP syndrome Medical History bi-polar Medical History hypertension Medical History hx of seizure x1, isolated Surgical History gallbladder 10/2013 Surgical History 03/2014 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
--- OUTSIDE RECORDS SUMMARY | 2017-12-25 20:08 | XMS REPORT ---
Author Author OLY DURBIN [facility] Address [address] [place] [address] Care Team Providers Care Medical Operations Supervisor Name Role Phone OLY DURBIN Unavailable PROBLEMS Type Condition ICD9-CM Code ZJR04-PB Code Onset Dates Condition Status SNOMED Code Problem Bipolar I disorder with depression F31.9 Active 98716016 Problem Amenorrhea N91.2 Active 14306477 Problem Social anxiety disorder F40.10 Active 33011513 Problem Obsessive-compulsive disorder, unspecified type F42.9 Active 002802589 Problem PTSD (post-traumatic stress disorder) F43.10 Active 34614078 Problem Mood disorder F39 Active 73933073 Problem 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 Active 80293565 ALLERGIES No Information ENCOUNTERS Encounter Location Date Diagnosis [place] [id number] [place] [address] 33700- 9664 Jan, [facility] [address] [place] [address] [id number] [place] [address] 64156- 4563 Nov, [facility] [id number] [place] [address] 60147- 0863 Nov, [facility] [id number] [place] [address] 32379- 6435 Oct, PTSD (post-traumatic stress disorder) F43.10 and Bipolar I disorder with depression F31.9 [facility] [id number] [place] [address] 07331- 6168 Oct, [facility] [id number] [place] [address] 53551- 2005 Oct, PTSD (post-traumatic stress disorder) F43.10 and Bipolar I disorder with depression F31.9 [facility] [id number] [place] [address] 96520- 5377 Oct, [facility] [address] [address] 1609 Sep, Bipolar I disorder with depression F31.9 [facility] [address] [address] 2436 Sep, Bipolar I disorder with depression F31.9 ; PTSD (post- traumatic stress disorder) F43.10 ; 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 ; Social anxiety disorder F40.10 and BMI 50.0-59.9, adult Z68.43 [place] [address] [address] 3[address] Sep, PTSD (post-traumatic stress disorder) F43.10 and Bipolar I disorder with depression F31.9 [place] [address] [address]- 2178 Sep, PTSD (post-traumatic stress disorder) F43.10 and Bipolar I disorder with depression F31.9 [place] [address] [address]- 2886 August, PTSD (post-traumatic stress disorder) F43.10 and Bipolar I disorder with depression F31.9 [facility] [address] [address] 0524 August, Bipolar I disorder with depression F31.9 ; PTSD (post- traumatic stress disorder) F43.10 ; 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 ; Social anxiety disorder F40.10 and BMI 50.0-59.9, adult Z68.43 [facility] [address] [address] 4269 August, [facility] [address] [place] [address] 05882- 5042 August, Bipolar I disorder with depression F31.9 ; PTSD (post- traumatic stress disorder) F43.10 ; 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 ; Social anxiety disorder F40.10 and BMI 50.0-59.9, adult Z68.43 [facility] [address] [address] 3570 August, [facility] [id number] [place] [address] 71782- 5984 August, [place] [id number] [place] [address] 80666- 5760 August, PTSD (post-traumatic stress disorder) F43.10 and Bipolar I disorder with depression F31.9 [facility] [id number] [address]- 7041 August, [place] [id number] [place] [address] 13492- 9913 Jul, Bipolar I disorder with depression F31.9 ; PTSD (post- traumatic stress disorder) F43.10 ; 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 ; Social anxiety disorder F40.10 and BMI 50.0-59.9, adult Z68.43 [facility] [address] [place] [address] 15493- 9177 Jul, PTSD (post-traumatic stress disorder) F43.10 and Bipolar I disorder with depression F31.9 [place] [address] [address]- 0867 Jul, Pelvic pain R10.2 ; Amenorrhea N91.2 and BMI 50.0-59.9, adult Z68.43 [facility] [address] [address]- 7283 Jun, BMI 50.0-59.9, adult Z68.43 ; Bipolar I disorder with depression F31.9 ; PTSD (post-traumatic stress disorder) F43.10 and 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 [facility] [address] [address] Jun, Other viral agents as the cause of diseases classified elsewhere B97.89 ; Other specified respiratory disorders J98.8 ; Bronchitis J40 and Cough R05 [facility] [address], [place] [address]- 4876 13 Jun, 2017 PTSD (post-traumatic stress disorder) F43.10 [facility] [address] [address]- 4456 Jun, PTSD (post-traumatic stress disorder) F43.10 and Bipolar I disorder with depression F31.9 [facility] [id number] [place] [address] 90854- 5076 13 May, 2017 PTSD (post-traumatic stress disorder) F43.10 and Bipolar I disorder with depression F31.9 [place] [id number] [place] [address] 60472- 9056 12 May, 2017 [place] [address] [id number] [place] [address] 56276- 5176 07 May, 2017 PTSD (post-traumatic stress disorder) F43.10 and Bipolar I disorder with depression F31.9 [facility] [address], [place] [address]- 1895 Apr, PTSD (post-traumatic stress disorder) F43.10 and Bipolar I disorder with depression F31.9 [place] [address] [address]- 4176 Apr, PTSD (post-traumatic stress disorder) F43.10 and Bipolar I disorder with depression F31.9 [facility] [address] [address]- 5001 Mar, PTSD (post-traumatic stress disorder) F43.10 ; Obsessive- compulsive disorder, unspecified type F42.9 ; Bipolar I disorder with depression F31.9 and Other manager long term care (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.899 [facility] [address], [place] [address]- 9572 Mar, PTSD (post-traumatic stress disorder) F43.10 and Bipolar I disorder with depression F31.9 [place] [address] [address]- 5181 Feb, PTSD (post-traumatic stress disorder) F43.10 and Bipolar I disorder with depression F31.9 [facility] [address] [place] [address] 01014- 9396 Feb, PTSD (post-traumatic stress disorder) F43.10 and Bipolar I disorder with depression F31.9 [facility] [id number] [place] [address] 96428 -7046 Jan, Strep pharyngitis J02.0 [facility] [id number] [place] [address] 89127- 4952 Jan, [facility] [id number] [place] [address] 10201- 9451 Jan, [place] [id number] [place] [address] 03498- 6327 Jan, PTSD (post-traumatic stress disorder) F43.10 and Bipolar I disorder with depression F31.9 [facility] [id number] [place] [address] 63711- 0321 05 Jan, 2017 PTSD (post-traumatic stress disorder) F43.10 and Bipolar I disorder with depression F31.9 [facility] [address] [address]- 0464 Jan, Other manager long term care (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.899 [place] [address] [place] [address] 72812- 4894 02 Jan, 2017 PTSD (post-traumatic stress disorder) F43.10 ; Obsessive- compulsive disorder, unspecified type F42.9 ; Bipolar I disorder with depression F31.9 and Other prison (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.899 [facility] [address] [place] [address] 49416- 4031 27 Dec, 2016 Encounter for IUD removal Z30.432 and control counseling Z30.09 [place] [address] [place] [address]- 9271 Dec, PTSD (post-traumatic stress disorder) F43.10 ; Obsessive- compulsive disorder, unspecified type F42.9 and Bipolar I disorder with depression F31.9 [facility] [address] [address]- 7097 Dec, PTSD (post-traumatic stress disorder) F43.10 and Bipolar I disorder with depression F31.9 [facility] [address] [place] [address] 36885- 9312 Dec, PTSD (post-traumatic stress disorder) F43.10 and Bipolar I disorder with depression F31.9 [facility] [id number] [place] [address] 03270- 6559 Dec, Mood disorder F39 [facility] [id number] [place] [address] 03819- 0667 Dec, PTSD (post-traumatic stress disorder) F43.10 ; Mood disorder F39 and Obsessive-compulsive disorder, unspecified type F42.9 [facility] [address] [place] [address] 22701- 9626 Dec, PTSD (post-traumatic stress disorder) F43.10 and Bipolar I disorder with depression F31.9 [facility] [address] [address] Dec, Adverse drug reaction, initial encounter T88.7XXA [facility] [address] [place] [address] 77269- 9587 Dec, [facility] [address], [place] [address]- 3443 Nov, PTSD (post-traumatic stress disorder) F43.10 and Bipolar I disorder with depression F31.9 [facility] [address], [place] [address]- 9734 Nov, PTSD (post-traumatic stress disorder) F43.10 ; Mood disorder F39 and Obsessive-compulsive disorder, unspecified type F42.9 [facility] [address] [facility] [id number] [address]- 1771 Nov, PTSD (post-traumatic stress disorder) F43.10 and Bipolar I disorder with depression F31.9 [facility] [address] [facility] [id number], [place] [address]- 1316 Nov, PTSD (post-traumatic stress disorder) F43.10 and Bipolar I disorder with depression F31.9 [facility] [address] [facility] [id number], [place] [address] Nov, [facility] [address] [facility] [id number] [place] [address] 27489- 5823 Nov, PTSD (post-traumatic stress disorder) F43.10 and Bipolar I disorder with depression F31.9 [facility] [address] [place] [id number] [place] [address] 12592- 3576 Nov, PTSD (post-traumatic stress disorder) F43.10 and Bipolar I disorder with depression F31.9 [facility] [address] [facility] [id number], [place] [address]- 2176 Oct, [facility] [address] [place] [id number] [place] [address] 39003- 4706 Oct, PTSD (post-traumatic stress disorder) F43.10 ; Mood disorder F39 and Obsessive-compulsive disorder, unspecified type F42.9 [facility] [address] [place] [id number] [address]- 0798 Oct, PTSD (post-traumatic stress disorder) F43.10 and Bipolar I disorder with depression F31.9 [facility] [address] [facility] [id number], [place] [address]- 0446 Oct, PTSD (post-traumatic stress disorder) F43.10 and Bipolar I disorder with depression F31.9 [facility] [address] [place] [id number] [address]- 6446 Oct, PTSD (post-traumatic stress disorder) F43.10 ; Mood disorder F39 and Obsessive-compulsive disorder, unspecified type F42.9 [facility] [address], [place] [address]- 6610 Oct, [facility] [address] [address]- 4936 Oct, PTSD (post-traumatic stress disorder) F43.10 and Bipolar I disorder with depression F31.9 [facility] [address] [place] [address] 57017- 2339 Oct, PTSD (post-traumatic stress disorder) F43.10 ; Mood disorder F39 and Obsessive-compulsive disorder, unspecified type F42.9 [facility] [address], [place] [address]- 8960 Sep, PTSD (post-traumatic stress disorder) F43.10 and Bipolar I disorder with depression F31.9 [facility] [address] [place] [address] 21435- 9356 Sep, PTSD (post-traumatic stress disorder) F43.10 ; Mood disorder F39 and Obsessive-compulsive disorder, unspecified type F42.9 [facility] [address] [place] [address] 62846- 5931 Sep, PTSD (post-traumatic stress disorder) F43.10 and Bipolar I disorder with depression F31.9 [facility] [address], [place] [address]- 6628 Sep, PTSD (post-traumatic stress disorder) F43.10 and Bipolar I disorder with depression F31.9 [facility] [address], [place] [address]- 3941 August, PTSD (post-traumatic stress disorder) F43.10 and Bipolar I disorder with depression F31.9 [facility] [address], [place] [address] -[address]008 August, Pharyngitis due to other organism J02.8 [facility] [address], [place] [address]- 7811 August, PTSD (post-traumatic stress disorder) F43.10 ; Bipolar 1 disorder, mixed F31.60 and Other manager long term care (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.899 [facility] [address], [place] [address]- 9178 August, PTSD (post-traumatic stress disorder) F43.10 and Bipolar I disorder with depression F31.9 [facility] [address], [place] [address]- 0038 Jul, PTSD (post-traumatic stress disorder) F43.10 and Bipolar I disorder with depression F31.9 [facility] [address], [place] [address]- 1017 Jul, PTSD (post-traumatic stress disorder) F43.10 and Bipolar I disorder with depression F31.9 [facility] [address], [place] [address]- 8101 Jul, PTSD (post-traumatic stress disorder) F43.10 and Bipolar I disorder with depression F31.9 [facility] [address], [place] [address]- 0310 Jul, Other prison (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.899 [facility] [address], [place] [address]- 7634 Jun, PTSD (post-traumatic stress disorder) F43.10 and Bipolar I disorder with depression F31.9 [facility] [address], [place] [address]- 9044 Jun, Bipolar 1 disorder, mixed F31.60 ; PTSD (post-traumatic stress disorder) F43.10 and Other manager long term care (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.899 [facility] [address] [place] [id number], [place] [address]- 1094 Jun, PTSD (post-traumatic stress disorder) F43.10 and Depression , unspecified depression type F32.9 [place] [address] [place] [id number] [place] [address] 21002- 3660 Jun, PTSD (post-traumatic stress disorder) F43.10 and Depression , unspecified depression type F32.9 [place] [address] [place] [id number] [place] [address] 47507- 9966 Jun, PTSD (post-traumatic stress disorder) F43.10 and Depression , unspecified depression type F32.9 [facility] [address] 8[address]45 -9957 May, Fever, unspecified fever cause R50.9 and Gastroenteritis K52.9 [place] [address] 84567- 9575 Mar, Sprain of other ligament of right ankle, subsequent encounter S93.491D [place] [address] 96024- 4446 Mar, [facility] [place] [address] 80321 -1416 Feb, Scabies infestation B86 [place] [address] 86871- 8303 Feb, Dental caries K02.9 [place] [address] 35206- 0018 Jan, [facility] [place] [address] [place] [id number] [place] [address] 95476 -7774 Jan, Pharyngitis, unspecified etiology J02.9 [place] [address] [address] [id number] [place] [address] 16321- 5092 Jan, [place] [address] 99948- 4332 Jan, Bipolar affective disorder, remission status unspecified F31.9 [place] [address] 53667- 8798 Jan, Encounter for dental examination and cleaning without abnormal findings Z01.20 [facility] [id number] [place] [address] 31038- 0924 Jan, Bipolar affective disorder, remission status unspecified F31.9 [facility] [id number] [place] [address] 33413- 4613 29 Dec, 2015 Bipolar affective disorder, remission status unspecified F31.9 and Depression, unspecified depression type F32.9 [facility] [id number] [place] [address] 61034- 4673 12 Dec, 2015 Unspecified mood [affective] disorder F39 and Generalized anxiety disorder F41.1 [place] [id number] [place] [address] 19128- 5937 08 Dec, 2015 Depression, unspecified depression type F32.9 [place] [address] [id number] [place] [address] 90786- 5611 Nov, Dental caries K02.9 [place] [address] [address] [id number] [place] [address] 73780- 6063 Nov, Dental examination Z01.20 [place] [id number] [place] [address] 48078- 6534 24 Sep, 2015 Bipolar affective disorder, remission status unspecified F31.9 [place] [address] [address] [id number] [place] [address] 87058- 5076 August, Tension headache G44.209 [facility] [id number] [place] [address] 56419 -4945 Jul, [facility] [id number] [place] [address] 60712 -7642 Jul, Upper respiratory infection J06.9 and Gastroenteritis K52.9 [facility] [id number] [place] [address] 67294- 4104 Jun, Bronchitis J40 [facility] [id number] [place] [address] 19926 -6614 Feb, Thoracic back pain M54.6 and Left shoulder pain M25.512 [facility] [address], [place] [address]- 9372 Feb, [facility] [address] [facility] [id number], [place] [address]- 5678 14 Jul, 2014 [facility] [id number] [place] [address] 21326- 8269 Jul, [facility] [address] [facility] [id number] [place] [address] 12630- 6542 Apr, [facility] [id number] [place] [address] 33179- 6498 Apr, [facility] [id number] [place] [address] 72037- 9458 Apr, [facility] [id number] [place] [address] 39381- 0084 Apr, [facility] [address], [place] [address]- 9918 Mar, [facility] [id number] [place] [address] 45231- 7211 Mar, [facility] [address], [place] [address]- 8720 Mar, [facility] [address], [place] [address]- 6990 Mar, [facility] [address] [place] [id number], [place] [address]- 6441 Feb, [facility] [id number] [place] [address] 153308- 8589 Feb, [facility] [address], [place] [address]- 0253 Feb, [facility] [address] [place] [address] 94202- 1833 Feb, [facility] [place] [facility] [address] [id number] [place] [address]- 6160 15 Jan, 2014 [facility] [place] [facility] [address] [id number] [place] [address]- 8576 15 Jan, 2014 [facility] [place] [facility] [address] [id number] [place] [address]- 9959 14 Jan, 2014 [facility] [place] [facility] [address] [id number] [place] [address]- 3906 14 Jan, 2014 [facility] [place] [facility] [address] [id number] [place] [address]- 7616 Jan, [facility] [place] [facility] [address] [id number] [place] [address]- 8380 Jan, [facility] [place] [facility] [address] [id number] [place] [address]- 2727 15 Dec, 2013 [facility] [place] [facility] [address] [id number] [place] [address]- 5273 Dec, [facility] [place] [facility] [address] [id number] [place] [address]- 4950 Nov, [facility] [place] [facility] [address] [id number] [place] [address]- 8793 Nov, [facility] [place] [facility] [address] [id number], [place] [address]- 5287 Nov, [facility] [place] [facility] [address] [id number] [address]- 4267 Nov, [facility] [place] [facility] [address] [id number] [place] [address]- 3020 Nov, [facility] [place] [facility] [address] [id number] [place] [address]- 0263 Nov, [facility] [place] [facility] [address] [id number], [place] [address]- 9673 Nov, [facility] [place] [facility] [address] [id number], [place] [address]- 8387 Nov, [facility] [place] [facility] [address] [id number] [place] [address]- 1466 Nov, [facility] [place] [facility] [address] [id number] [place] [address]- 6088 Oct, [facility] [place] [facility] [address] [id number] [place] [address]- 4846 Oct, [facility] [place] [facility] [address] [id number] [place] [address]- 4132 Oct, [facility] [place] [facility] [address] [id number] [place] [address]- 1062 Oct, [facility] [place] [facility] [address] [id number] [place] [address]- 6242 Oct, [facility] [place] [facility] [address] [id number] [place] [address]- 0727 Oct, [facility] [place] [facility] [address] [id number] [place] [address]- 8058 Oct, [facility] [place] [facility] [address] [id number] [place] [address]- 0669 Oct, [facility] [place] [facility] [address] [id number] [place] [address]- 0219 Oct, [facility] [place] [facility] [address] [id number] [place] [address]- 4391 Oct, [facility] [place] [facility] [address] [id number] [place] [address] Oct, [facility] [place] [facility] [address] [id number] [place] [address] Oct, [facility] [place] [facility] [address] [id number] [place] [address] Oct, [facility] [place] [facility] [address] [id number] [place] [address] Oct, [facility] [place] [facility] [address] [id number] [place] [address] Oct, [facility] [place] [facility] [address] [id number] [place] Oct, [facility] [place] [facility] [address] [id number] [place] [address] Oct, [facility] [place] [facility] [address] [id number] [place] [address] Oct, [facility] [place] [facility] [address] [id number] [place] [address] Oct, [facility] [place] [facility] [address] [id number] [place] [address] Sep, [facility] [place] [facility] [address] [id number] [place] [address] Sep, [facility] [place] [facility] [address] [id number] [place] [address] Sep, [facility] [place] [facility] [address] [id number] [place] [address] Sep, [facility] [place] [facility] [address] [id number] [place] [address]- 5531 Feb, [facility] [place] [facility] [address] [id number] [place] [address] Feb, [facility] [place] [facility] [address] [id number] [place] [address] Dec, [facility] [place] [facility] [address] [id number] [place] [address] Dec, [facility] [place] [facility] [address] [id number] [place] [address] Nov, [facility] [place] [facility] [address] [id number] [place] [address] Nov, [facility] [place] [facility] [address] [id number] [place] [address] Nov, [facility] [address] [id number] [place] [address] 1995 Nov, [facility] [place] [facility] [address] [id number] [place] [address] 2000 Nov, [facility] [place] [facility] [address] [id number] [place] [address] Nov, [facility] [place] [facility] [address] [id number] [place] [address] Oct, [facility] [place] [facility] [address] [id number] [place] [address] Apr, [facility] [place] [facility] [address] [id number] [place] [address] August, [facility] [place] [facility] [address] [id number] [place] [address] August, [facility] [place] [facility] [address] [id number] [place] [address] August, [facility] [place] [facility] [address] [id number] [place] [address] Jul, [facility] [place] [facility] [address] [id number] [place] [address] Jun, [facility] [place] [facility] [address] [id number] [place] [address] Jun, [facility] [place] [facility] [address] [id number] [place] [address] Jun, [facility] [place] [facility] [address] [id number] [place] [address] Jun, [facility] [place] [facility] [address] [id number] [place] [address] Jun, [facility] [place] [facility] [address] [id number] [place] [address] Jun, [facility] [place] [facility] [address] [id number] [place] [address] 21 May, 2011 [facility] [address] [id number] [place] [address] 16 May, 2011 [facility] [place] [facility] [address] [id number] [place] [address] 09 May, 2011 [facility] [address] [id number] [place] [address] 07 May, 2011 [facility] [place] [facility] [address] [id number] [place] [address]- [address] 06 May, 2011 [facility] [address] [id number] [place] [address] May, [facility] [address] [facility] [id number] [place] [address] Apr, [facility] [address] [facility] [id number] [place] [address] 07 Mar, 2011 [facility] [address] [id number] [place] [address] Mar, [facility] [address] [facility] [id number] [place] [address] Feb, [facility] [address] [facility] [id number] [place] [address] Jan, [facility] [address] [facility] [id number] [place] [address] 31 Mar, 2009 [facility] [place] [facility] [address] [id number] [place] [address] 15 Mar, 2009 [facility] [place] [facility] [address] [id number] [place] [address] Mar, [facility] [place] [facility] [address] [facility] [id number] [place] [address] Mar, [facility] [place] [facility] [address] [facility] [id number] [place] [address] Mar, [facility] [address] [facility] [id number], [place] [address] Feb, [facility] [address] [id number], [place] [address] Feb, [facility] [address] [facility] [id number][place] [address] Nov, [facility] [address] [id number], [place] [address] May, IMMUNIZATIONS No Known Immunizations SOCIAL HISTORY Never Assessed REASON FOR VISIT Follow-up PTSD/Bipolar Disorder PLAN OF CARE Activity Details Follow Up 1 Week Reason: Follow-up VITAL SIGNS MEDICATIONS Unknown Medications RESULTS No Results PROCEDURES Procedure Date Ordered Result Body Site Psychotherapy, patient &/family, 45 minutes, established patient September 16, 2017 INSTRUCTIONS MEDICATIONS ADMINISTERED No Known Medications MEDICAL (GENERAL) HISTORY Type Description Date Medical History HELP syndrome Medical History bi-polar Medical History hypertension Medical History hx of seizure x1, isolated Surgical History gallbladder 10/2013 Surgical History 03/2014 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
--- OUTSIDE RECORDS SUMMARY | 2017-12-25 20:08 | XMS REPORT ---
Author Author OLY DURBIN [facility] Address [address] [place] [address] Care Team Providers Care Photographic Equipment Inspector Name Role Phone OLY DURBIN Unavailable PROBLEMS Type Condition ICD9-CM Code DOE88-AU Code Onset Dates Condition Status SNOMED Code Problem Bipolar I disorder with depression F31.9 Active 15850073 Problem Amenorrhea N91.2 Active 60638821 Problem Social anxiety disorder F40.10 Active 81676073 Problem Obsessive-compulsive disorder, unspecified type F42.9 Active 626154511 Problem PTSD (post-traumatic stress disorder) F43.10 Active 79216639 Problem Mood disorder F39 Active 82508665 Problem 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 Active 79780715 ALLERGIES No Information ENCOUNTERS Encounter Location Date Diagnosis [place] [id number] [place] [address] 95912- 6975 Jan, [place] [address] 43083- 6121 Nov, Benign paroxysmal positional vertigo of left ear H81.12 and BMI 50.0-59.9, adult Z68.43 [facility] [id number] [place] [address] 99033- 2754 Nov, [facility] [id number] [place] [address] 83188- 1189 Nov, [facility] [id number] [place] [address] 26803- 9371 Oct, PTSD (post-traumatic stress disorder) F43.10 and Bipolar I disorder with depression F31.9 [facility] [id number] [place] [address] 59871- 1311 Oct, [facility] [id number] [address] 1410 Oct, PTSD (post-traumatic stress disorder) F43.10 and Bipolar I disorder with depression F31.9 [facility] [address] [address] 0[address] Oct, [facility] [address], [place] [address] 4435 Sep, Bipolar I disorder with depression F31.9 [facility] [id number] [place] [address] 52186- 2285 Sep, Bipolar I disorder with depression F31.9 ; PTSD (post- traumatic stress disorder) F43.10 ; 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 ; Social anxiety disorder F40.10 and BMI 50.0-59.9, adult Z68.43 [facility] [address], [place] [address] 7881 Sep, PTSD (post-traumatic stress disorder) F43.10 and Bipolar I disorder with depression F31.9 [facility] [address], [place] [address]- 6946 Sep, PTSD (post-traumatic stress disorder) F43.10 and Bipolar I disorder with depression F31.9 [facility] [address] [address]- 0088 August, PTSD (post-traumatic stress disorder) F43.10 and Bipolar I disorder with depression F31.9 [facility] [address], [place] [address]- 6066 August, Bipolar I disorder with depression F31.9 ; PTSD (post- traumatic stress disorder) F43.10 ; 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 ; Social anxiety disorder F40.10 and BMI 50.0-59.9, adult Z68.43 [facility] [address], [place] [address] 4082 August, [facility] [id number] [place] [address] 82118- 5595 August, Bipolar I disorder with depression F31.9 ; PTSD (post- traumatic stress disorder) F43.10 ; 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 ; Social anxiety disorder F40.10 and BMI 50.0-59.9, adult Z68.43 [place] [address] [place] [address] 46433- 3770 August, [place] [address] 37158- 6538 August, [place] [id number] [place] [address] 30569- 2238 August, PTSD (post-traumatic stress disorder) F43.10 and Bipolar I disorder with depression F31.9 [place] [id number] [place] [address] 52258- 6072 August, [place] [id number] [place] [address] 84588- 2943 Jul, Bipolar I disorder with depression F31.9 ; PTSD (post- traumatic stress disorder) F43.10 ; 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 ; Social anxiety disorder F40.10 and BMI 50.0-59.9, adult Z68.43 [place] [address] [place] [address] 51426- 3276 Jul, PTSD (post-traumatic stress disorder) F43.10 and Bipolar I disorder with depression F31.9 [place] [id number] [place] [address] 50231- 5279 Jul, Pelvic pain R10.2 ; Amenorrhea N91.2 and BMI 50.0-59.9, adult Z68.43 [place] [id number] [place] [address] 97767- 1960 Jun, BMI 50.0-59.9, adult Z68.43 ; Bipolar I disorder with depression F31.9 ; PTSD (post-traumatic stress disorder) F43.10 and 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 [facility] [address] [place] [address] 63961 -2422 15 Jun, 2017 Other viral agents as the cause of diseases classified elsewhere B97.89 ; Other specified respiratory disorders J98.8 ; Bronchitis J40 and Cough R05 [facility] [id number] [place] [address] 53061- 6135 13 Jun, 2017 PTSD (post-traumatic stress disorder) F43.10 [facility] [id number] [place] [address] 25119- 4059 Jun, PTSD (post-traumatic stress disorder) F43.10 and Bipolar I disorder with depression F31.9 [facility] [address] 15199- 7334 13 May, 2017 PTSD (post-traumatic stress disorder) F43.10 and Bipolar I disorder with depression F31.9 [facility] [id number] [place] [address] 92436- 8265 12 May, 2017 [facility] [address] 05256- 6650 07 May, 2017 PTSD (post-traumatic stress disorder) F43.10 and Bipolar I disorder with depression F31.9 [facility] [id number] [place] [address] 59664- 9782 Apr, PTSD (post-traumatic stress disorder) F43.10 and Bipolar I disorder with depression F31.9 [facility] [id number] [place] [address] 32544- 7695 Apr, PTSD (post-traumatic stress disorder) F43.10 and Bipolar I disorder with depression F31.9 [facility] [id number] [place] [address] 41331- 0779 Mar, PTSD (post-traumatic stress disorder) F43.10 ; Obsessive- compulsive disorder, unspecified type F42.9 ; Bipolar I disorder with depression F31.9 and Other terminal makeup operator (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.899 [place] [address], [place] [address]- 6326 Mar, PTSD (post-traumatic stress disorder) F43.10 and Bipolar I disorder with depression F31.9 [facility] [address], [place] [address]- 3846 Feb, PTSD (post-traumatic stress disorder) F43.10 and Bipolar I disorder with depression F31.9 [facility] [address] [place] [address] 05369- 7225 Feb, PTSD (post-traumatic stress disorder) F43.10 and Bipolar I disorder with depression F31.9 [facility] [id number] [place] [address] 07948 -2536 Jan, Strep pharyngitis J02.0 [facility] [id number] [place] [address] 12024- 7296 Jan, [facility] [address] [place] [address] 90455- 2622 Jan, [facility] [address] [place] [address] 01444- 4686 Jan, PTSD (post-traumatic stress disorder) F43.10 and Bipolar I disorder with depression F31.9 [facility] [address], [place] [address]- 7686 Jan, PTSD (post-traumatic stress disorder) F43.10 and Bipolar I disorder with depression F31.9 [facility] [address], [place] [address]- 9766 Jan, Other fdc (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.899 [facility] [id number] [place] [address] 68668- 3356 Jan, PTSD (post-traumatic stress disorder) F43.10 ; Obsessive- compulsive disorder, unspecified type F42.9 ; Bipolar I disorder with depression F31.9 and Other fdc (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.899 [facility] [address], [place] [address]- 9437 27 Dec, 2016 Encounter for IUD removal Z30.432 and control counseling Z30.09 [facility] [id number] [place] [address] 27908- 4586 Dec, PTSD (post-traumatic stress disorder) F43.10 ; Obsessive- compulsive disorder, unspecified type F42.9 and Bipolar I disorder with depression F31.9 [facility] [id number] [place] [address] 22827- 8138 Dec, PTSD (post-traumatic stress disorder) F43.10 and Bipolar I disorder with depression F31.9 [facility] [id number] [place] [address] 38238- 1899 12 Dec, 2016 PTSD (post-traumatic stress disorder) F43.10 and Bipolar I disorder with depression F31.9 [facility] [id number] [place] [address] 73488- 2571 11 Dec, 2016 Mood disorder F39 [facility] [id number] [place] [address] 28451- 1403 08 Dec, 2016 PTSD (post-traumatic stress disorder) F43.10 ; Mood disorder F39 and Obsessive-compulsive disorder, unspecified type F42.9 [facility] [id number] [place] [address] 57626- 1471 07 Dec, 2016 PTSD (post-traumatic stress disorder) F43.10 and Bipolar I disorder with depression F31.9 [facility] [address] [place] [address] 28098 -1777 Dec, Adverse drug reaction, initial encounter T88.7XXA [facility] [id number] [place] [address] 45033- 9482 Dec, [facility] [address] [place] [address] 95722- 3634 Nov, PTSD (post-traumatic stress disorder) F43.10 and Bipolar I disorder with depression F31.9 [facility] [address] [facility] [id number] [address]- 1488 Nov, PTSD (post-traumatic stress disorder) F43.10 ; Mood disorder F39 and Obsessive-compulsive disorder, unspecified type F42.9 [facility] [id number] [address]- 5908 Nov, PTSD (post-traumatic stress disorder) F43.10 and Bipolar I disorder with depression F31.9 [facility] [id number] [address]- 5366 Nov, PTSD (post-traumatic stress disorder) F43.10 and Bipolar I disorder with depression F31.9 [facility] [address] [facility] [id number] [address] Nov, [facility] [address] [place] [address] 21465- 6970 Nov, PTSD (post-traumatic stress disorder) F43.10 and Bipolar I disorder with depression F31.9 [facility] [id number] [address]- 8166 Nov, PTSD (post-traumatic stress disorder) F43.10 and Bipolar I disorder with depression F31.9 [facility] [id number], [place] [address]- 7508 Oct, [facility] [id number] [address]- 9286 Oct, PTSD (post-traumatic stress disorder) F43.10 ; Mood disorder F39 and Obsessive-compulsive disorder, unspecified type F42.9 [facility] [id number] [address]- 6901 Oct, PTSD (post-traumatic stress disorder) F43.10 and Bipolar I disorder with depression F31.9 [facility] [id number], [place] [address]- 9276 Oct, PTSD (post-traumatic stress disorder) F43.10 and Bipolar I disorder with depression F31.9 [facility] [address], [place] [address]- 8536 Oct, PTSD (post-traumatic stress disorder) F43.10 ; Mood disorder F39 and Obsessive-compulsive disorder, unspecified type F42.9 [facility] [address], [place] [address]- 6606 Oct, [facility] [id number] [place] [address] 85639- 8096 Oct, PTSD (post-traumatic stress disorder) F43.10 and Bipolar I disorder with depression F31.9 [facility] [address] [place] [address] 31050- 0613 Oct, PTSD (post-traumatic stress disorder) F43.10 ; Mood disorder F39 and Obsessive-compulsive disorder, unspecified type F42.9 [facility] [address] [place] [address] 55079- 2570 Sep, PTSD (post-traumatic stress disorder) F43.10 and Bipolar I disorder with depression F31.9 [facility] [address], [place] [address]- 5706 Sep, PTSD (post-traumatic stress disorder) F43.10 ; Mood disorder F39 and Obsessive-compulsive disorder, unspecified type F42.9 [facility] [address], [place] [address]- 0415 Sep, PTSD (post-traumatic stress disorder) F43.10 and Bipolar I disorder with depression F31.9 [facility] [address], [place] [address]- 9654 Sep, PTSD (post-traumatic stress disorder) F43.10 and Bipolar I disorder with depression F31.9 [facility] [address], [place] [address]- 0891 August, PTSD (post-traumatic stress disorder) F43.10 and Bipolar I disorder with depression F31.9 [facility] [address] [place] [address] 93664 -9721 August, Pharyngitis due to other organism J02.8 [facility] [address] [place] [address] 78161- 8566 August, PTSD (post-traumatic stress disorder) F43.10 ; Bipolar 1 disorder, mixed F31.60 and Other terminal makeup operator (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.899 [facility] [id number] [place] [address] 46832- 3872 August, PTSD (post-traumatic stress disorder) F43.10 and Bipolar I disorder with depression F31.9 [facility] [id number] [place] [address] 85801- 0958 Jul, PTSD (post-traumatic stress disorder) F43.10 and Bipolar I disorder with depression F31.9 [facility] [id number] [place] [address] 82750- 9381 Jul, PTSD (post-traumatic stress disorder) F43.10 and Bipolar I disorder with depression F31.9 [facility] [id number] [place] [address] 19048- 5325 Jul, PTSD (post-traumatic stress disorder) F43.10 and Bipolar I disorder with depression F31.9 [facility] [address] [place] [address] 05239- 6813 Jul, Other fdc (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.899 [facility] [address] [place] [address] 91290- 0131 Jun, PTSD (post-traumatic stress disorder) F43.10 and Bipolar I disorder with depression F31.9 [facility] [address] [place] [address] 57110- 1494 Jun, Bipolar 1 disorder, mixed F31.60 ; PTSD (post-traumatic stress disorder) F43.10 and Other terminal makeup operator (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.899 [place] [id number] [place] [address] 72961- 9769 Jun, PTSD (post-traumatic stress disorder) F43.10 and Depression , unspecified depression type F32.9 [place] [id number] [place] [address] 85950- 2859 Jun, PTSD (post-traumatic stress disorder) F43.10 and Depression , unspecified depression type F32.9 [place] [address] 20439- 7668 Jun, PTSD (post-traumatic stress disorder) F43.10 and Depression , unspecified depression type F32.9 [facility] [address] 29930 -1045 May, Fever, unspecified fever cause R50.9 and Gastroenteritis K52.9 [place] [address] 17280- 1254 Mar, Sprain of other ligament of right ankle, subsequent encounter S93.491D [place] [address] 32309- 2201 Mar, [facility] [place] [address] 86571 -2140 Feb, Scabies infestation B86 [place] [address] 19473- 9804 Feb, Dental caries K02.9 [place] [id number] [place] [address] 45124- 0321 Jan, [facility] [address] 71721 -3270 Jan, Pharyngitis, unspecified etiology J02.9 [place] [address] 01886- 4770 Jan, [place] [address] 06759- 6293 Jan, Bipolar affective disorder, remission status unspecified F31.9 [facility] [id number] [place] [address] 05781- 7430 Jan, Encounter for dental examination and cleaning without abnormal findings Z01.20 [facility] [id number] [place] [address] 09188- 8447 Jan, Bipolar affective disorder, remission status unspecified F31.9 [facility] [id number] [place] [address] 88416- 2530 Dec, Bipolar affective disorder, remission status unspecified F31.9 and Depression, unspecified depression type F32.9 [place] [id number] [place] [address] 52388- 5613 Dec, Unspecified mood [affective] disorder F39 and Generalized anxiety disorder F41.1 [place] [id number] [place] [address] 79271- 3387 08 Dec, 2015 Depression, unspecified depression type F32.9 [place] [id number] [place] [address] 07996- 2928 Nov, Dental caries K02.9 [place] [id number] [place] [address] 83143- 1896 Nov, Dental examination Z01.20 [place] [id number] [place] [address] 93436- 2832 Sep, Bipolar affective disorder, remission status unspecified F31.9 [place] [id number] [place] [address] 62548- 4928 August, Tension headache G44.209 [facility] [id number] [place] [address] 29804 -8829 Jul, [facility] [id number] [place] [address] 83333 -2820 Jul, Upper respiratory infection J06.9 and Gastroenteritis K52.9 [facility] [address], [place] [address]- 5983 Jun, [facility] J40 [facility] [id number] [place] [address] 22793 -7154 Feb, Thoracic back pain M54.6 and Left shoulder pain M25.512 [facility] [id number] [address]- 5761 Feb, [facility] [id number] [address]- 2515 Jul, [facility] [id number] [place] [address] 77417- 4554 Jul, [facility] [id number] [place] [address] 75774- 4383 Apr, [facility] [id number] [place] [address] 74816- 5026 Apr, [facility] [address], [place] [address]- 5092 Apr, [facility] [address] [place] [address] 48191- 7529 Apr, [facility] [address], [place] [address]- 8761 Mar, [facility] [address], [place] [address]- 8873 Mar, [facility] [address], [place] [address]- 0483 Mar, [facility] [address], [place] [address]- 9916 Mar, [facility] [address], [place] [address]- 1531 Feb, [facility] [address], [place] [address]- 1153 Feb, [facility] [place] [facility] [address] [id number] [place] [address]- 0220 Feb, [facility] [place] [facility] [address] [id number] [place] [address]- 8371 Feb, [facility] [place] [facility] [address] [id number] [place] [address]- 9568 15 Jan, 2014 [facility] [place] [facility] [address] [id number] [place] [address]- 0287 15 Jan, 2014 [facility] [place] [facility] [address] [id number] [place] [address]- 3750 14 Jan, 2014 [facility] [place] [facility] [address] [id number] [place] [address]- 6514 14 Jan, 2014 [facility] [place] [facility] [address] [id number] [place] [address]- 7015 Jan, [facility] [place] [facility] [address] [id number] [place] [address]- 8047 Jan, [facility] [place] [facility] [address] [id number] [place] [address]- 6597 Dec, [facility] [place] [facility] [address] [id number] [place] [address]- 1767 Dec, [facility] [place] [facility] [address] [id number] [place] [address]- 7901 Nov, [facility] [place] [facility] [address] [id number] [place] [address]- 0397 Nov, [facility] [place] [facility] [address] [id number] [place] [address]- 3696 Nov, [facility] [place] [facility] [address] [id number] [place] [address]- 0779 Nov, [facility] [place] [facility] [address] [id number] [place] [address]- 4999 Nov, [facility] [place] [facility] [address] [id number] [place] [address]- 1829 Nov, [facility] [place] [facility] [address] [id number] [place] [address]- 4424 Nov, [facility] [place] [facility] [address] [id number] [place] [address]- 0588 Nov, [facility] [place] [facility] [address] [id number] [place] [address]- 4204 Nov, [facility] [place] [facility] [address] [id number] [place] [address]- 1937 Oct, [facility] [place] [facility] [address] [id number] [place] [address]- 7616 Oct, [facility] [place] [facility] [address] [id number] [place] [address]- 5982 Oct, [facility] [place] [facility] [address] [id number] [place] [address]- 1875 Oct, [facility] [place] [facility] [address] [id number] [place] [address] Oct, [facility] [place] [facility] [address] [id number] [place] [address] Oct, [facility] [place] [facility] [address] [id number] [place] [address] Oct, [facility] [place] [facility] [address] [id number] [place] [address] Oct, [facility] [place] [facility] [address] [id number] [place] [address] Oct, [facility] [place] [facility] [address] [id number] [place] [address] Oct, [facility] [place] [facility] [address] [id number] [place] [address] Oct, [facility] [place] [facility] [address] [id number] [place] [address] Oct, [facility] [place] [facility] [address] [id number] [place] [address] Oct, 2013 [facility] [place] [facility] [address] [id number] [place] [address] Oct, 2013 [facility] [place] [facility] [address] [id number] [place] [address] Oct, 2013 [facility] [place] [facility] [address] [id number] [place] [address] Oct, 2013 [facility] [place] [facility] [address] [id number] [place] [address] Oct, 2013 [facility] [place] [facility] [address] [id number] [place] [address] Oct, 2013 [facility] [place] [facility] [address] [id number] [place] [address] Oct, [facility] [place] [facility] [address] [id number] [place] [address] Sep, [facility] [place] [facility] [address] [id number] [place] [address] Sep, [facility] [place] [facility] [address] [id number] [place] [address] Sep, [facility] [place] [facility] [address] [id number] [place] [address] Sep, [facility] [place] [facility] [address] [id number] [place] [address] Feb, [facility] [place] [facility] [address] [id number] [place] [address] Feb, [facility] [place] [facility] [address] [address] [id number] [place] [address] Dec, [facility] [place] [facility] [address] [id number] [place] [address] Dec, [facility] [place] [facility] [address] [id number] [place] [address] Nov, [facility] [address] [id number] [place] [address] Nov, [facility] [place] [facility] [address] [id number] [place] [address] Nov, [facility] [place] [facility] [address] [id number] [place] [address] Nov, [facility] [place] [facility] [address] [id number] [place] [address] Nov, [facility] [place] [facility] [address] [id number] [place] [address] Nov, [facility] [place] [facility] [address] [id number] [place] [address] Oct, [facility] [place] [facility] [address] [id number] [place] [address] Apr, [facility] [place] [facility] [address] [id number] [place] [address] August, [facility] [place] [facility] [address] [id number] [place] [address] August, [facility] [place] [facility] [address] [id number] [place] [address] August, [facility] [place] [facility] [address] [id number] [place] [address] Jul, [facility] [place] [facility] [address] [id number] [place] [address] 28 Jun, 2011 [facility] [place] [facility] [address] [id number] [place] [address] 27 Jun, 2011 [facility] [place] [facility] [address] [id number] [place] [address] 14 Jun, 2011 [facility] [place] [facility] [address] [id number] [place] [address] 14 Jun, 2011 [facility] [place] [facility] [address] [id number] [place] [address] Jun, [facility] [address] [id number] [place] [address] Jun, [facility] [place] [facility] [address] [id number] [place] [address] May, 2011 [facility] [place] [facility] [address] [id number] [place] [address] 16 May, 2011 [facility] [place] [facility] [address] [id number] [place] [address] 09 May, 2011 [facility] [place] [facility] [address] [id number] [place] [address] 07 May, 2011 [facility] [place] [facility] [address] [id number] [place] [address] 06 May, 2011 [facility] [address] [facility] [id number] [place] [address] 06 May, 2011 [facility] [place] [facility] [address] [facility] [id number] [place] [address] Apr, [facility] [place] [facility] [address] [facility] [id number] [place] [address] 07 Mar, 2011 [facility] [place] [facility] [address] [facility] [id number] [place] [address] 06 Mar, 2011 [facility] [place] [facility] [address] [id number] [place] [address] 02 Feb, 2011 [facility] [place] [facility] [address] [id number] [place] [address] 13 Jan, 2011 [facility] [place] [facility] [address] [id number] [place] [address] 31 Mar, 2009 [facility] [place] [facility] [address] [facility] [id number] [place] [address] 15 Mar, 2009 [facility] [place] [facility] [address] [id number] [place] [address] Mar, [facility] [address] [id number] [address] Mar, [facility] [id number] [place] [address] Mar, [facility] [id number], [place] [address] Feb, [facility] [id number] [place] [address] Feb, [facility] [id number], [place] [address] Nov, [facility] [id number], [place] [address] May, IMMUNIZATIONS No Known Immunizations SOCIAL HISTORY Never Assessed REASON FOR VISIT Follow-up PTSD/Bipolar Disorder PLAN OF CARE Activity Details Follow Up 2 Weeks Reason: Follow-up VITAL SIGNS MEDICATIONS Unknown Medications RESULTS No Results PROCEDURES Procedure Date Ordered Result Body Site Psychotherapy, patient &/family, 45 minutes, established patient October 07, 2017 INSTRUCTIONS MEDICATIONS ADMINISTERED No Known Medications MEDICAL (GENERAL) HISTORY Type Description Date Medical History HELP syndrome Medical History bi-polar Medical History hypertension Medical History hx of seizure x1, isolated Surgical History gallbladder 10/2013 Surgical History 03/2014 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
--- OUTSIDE RECORDS SUMMARY | 2017-12-25 20:09 | XMS REPORT ---
Author Author OLY DURBIN [facility] Address [address] [place] [address] Care Team Providers Care Trigonometry Teacher Name Role Phone OLY DURBIN Unavailable PROBLEMS Type Condition ICD9-CM Code [id number] Code Onset Dates Condition Status SNOMED Code Problem Bipolar I disorder with depression F31.9 Active 05836912 Problem Amenorrhea N91.2 Active 62129136 Problem Social anxiety disorder F40.10 Active 09520898 Problem Obsessive-compulsive disorder, unspecified type F42.9 Active 687019334 Problem PTSD (post-traumatic stress disorder) F43.10 Active 68449616 Problem Mood disorder F39 Active 19633974 Problem 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 Active 40450799 ALLERGIES No Information ENCOUNTERS Encounter Location Date Diagnosis [place] [id number] [place] [address] 48727- 7061 Nov, [facility] [id number] [place] [address] 89097- 0543 Oct, PTSD (post-traumatic stress disorder) F43.10 and Bipolar I disorder with depression F31.9 [facility] [id number] [place] [address] 66094- 9301 Oct, [facility] [id number] [place] [address] 99818- 3536 Oct, PTSD (post-traumatic stress disorder) F43.10 and Bipolar I disorder with depression F31.9 [facility] [id number] [place] [address] 64566- 1554 Oct, [facility] [id number] [place] [address] 06542- 9294 Sep, Bipolar I disorder with depression F31.9 [facility] [id number] [address] 1677 Sep, Bipolar I disorder with depression F31.9 ; PTSD (post- traumatic stress disorder) F43.10 ; 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 ; Social anxiety disorder F40.10 and BMI 50.0-59.9, adult Z68.43 [place] [address] [address] 3[address] Sep, PTSD (post-traumatic stress disorder) F43.10 and Bipolar I disorder with depression F31.9 [place] [id number] [place] [address] 62449- 5000 Sep, PTSD (post-traumatic stress disorder) F43.10 and Bipolar I disorder with depression F31.9 [place] [address] [place] [address] 36525- 1420 August, PTSD (post-traumatic stress disorder) F43.10 and Bipolar I disorder with depression F31.9 [place] [address] [place] [address] 16754- 8395 August, Bipolar I disorder with depression F31.9 ; PTSD (post- traumatic stress disorder) F43.10 ; 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 ; Social anxiety disorder F40.10 and BMI 50.0-59.9, adult Z68.43 [place] [address] [address] 9941 August, [place] [address] [place] [address] 60652- 6958 August, Bipolar I disorder with depression F31.9 ; PTSD (post- traumatic stress disorder) F43.10 ; 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 ; Social anxiety disorder F40.10 and BMI 50.0-59.9, adult Z68.43 [place] [address] [address] 8213 August, [place] [id number] [place] [address] 57600- 4701 August, [facility] [address] [place] [address] 79034- 9828 August, PTSD (post-traumatic stress disorder) F43.10 and Bipolar I disorder with depression F31.9 [facility] [address] [address]- 2644 August, [facility] [id number] [place] [address] 35721- 3416 Jul, Bipolar I disorder with depression F31.9 ; PTSD (post- traumatic stress disorder) F43.10 ; 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 ; Social anxiety disorder F40.10 and BMI 50.0-59.9, adult Z68.43 [facility] [address] [place] [address] 69608- 0980 Jul, PTSD (post-traumatic stress disorder) F43.10 and Bipolar I disorder with depression F31.9 [facility] [address] [address]- 2906 Jul, Pelvic pain R10.2 ; Amenorrhea N91.2 and BMI 50.0-59.9, adult Z68.43 [facility] [address] [address]- 8637 Jun, BMI 50.0-59.9, adult Z68.43 ; Bipolar I disorder with depression F31.9 ; PTSD (post-traumatic stress disorder) F43.10 and 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 [facility] [address] [place] [address] 64210 -7961 Jun, Other viral agents as the cause of diseases classified elsewhere B97.89 ; Other specified respiratory disorders J98.8 ; Bronchitis J40 and Cough R05 [facility] [address] [address] 8530 Jun, PTSD (post-traumatic stress disorder) F43.10 [facility] [id number] [address]- 5615 13 Jun, 2017 PTSD (post-traumatic stress disorder) F43.10 and Bipolar I disorder with depression F31.9 [facility] [address] [address]- 8240 13 May, 2017 PTSD (post-traumatic stress disorder) F43.10 and Bipolar I disorder with depression F31.9 [facility] [address] [address]- 8481 12 May, 2017 [place] [id number] [place] [address] 67120- 0879 07 May, 2017 PTSD (post-traumatic stress disorder) F43.10 and Bipolar I disorder with depression F31.9 [facility] [address] [address]- 0351 Apr, PTSD (post-traumatic stress disorder) F43.10 and Bipolar I disorder with depression F31.9 [facility] [address] [address]- 5269 Apr, PTSD (post-traumatic stress disorder) F43.10 and Bipolar I disorder with depression F31.9 [facility] [address] [address]- 2997 18 Mar, 2017 PTSD (post-traumatic stress disorder) F43.10 ; Obsessive- compulsive disorder, unspecified type F42.9 ; Bipolar I disorder with depression F31.9 and 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 [facility] [address] [address]- 4043 Mar, PTSD (post-traumatic stress disorder) F43.10 and Bipolar I disorder with depression F31.9 [facility] [address] [address]- 4860 Feb, PTSD (post-traumatic stress disorder) F43.10 and Bipolar I disorder with depression F31.9 [facility] [address] [address]- 5049 Feb, PTSD (post-traumatic stress disorder) F43.10 and Bipolar I disorder with depression F31.9 [facility] [id number] [place] [address] 89933 -8285 Jan, Strep pharyngitis J02.0 [facility] [id number] [place] [address] 15320- 3778 Jan, [facility] [id number] [place] [address] 94361- 4447 Jan, [facility] [id number] [place] [address] 55751- 0168 Jan, PTSD (post-traumatic stress disorder) F43.10 and Bipolar I disorder with depression F31.9 [facility] [id number] [place] [address] 98768- 8544 Jan, PTSD (post-traumatic stress disorder) F43.10 and Bipolar I disorder with depression F31.9 [facility] [id number] [place] [address] 10852- 8174 Jan, Other senior living (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.899 [place] [id number] [place] [address] 93425- 9372 Jan, PTSD (post-traumatic stress disorder) F43.10 ; Obsessive- compulsive disorder, unspecified type F42.9 ; Bipolar I disorder with depression F31.9 and 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 [place] [address] [place] [address] 63427- 2171 Dec, Encounter for IUD removal Z30.432 and control counseling Z30.09 [place] [id number] [place] [address] 96834- 9297 Dec, PTSD (post-traumatic stress disorder) F43.10 ; Obsessive- compulsive disorder, unspecified type F42.9 and Bipolar I disorder with depression F31.9 [facility] [address] [address]- 1660 25 Dec, 2016 PTSD (post-traumatic stress disorder) F43.10 and Bipolar I disorder with depression F31.9 [facility] [address] [place] [address] 21728- 5712 12 Dec, 2016 PTSD (post-traumatic stress disorder) F43.10 and Bipolar I disorder with depression F31.9 [facility] [id number] [place] [address] 96256- 9904 11 Dec, 2016 Mood disorder F39 [facility] [id number] [place] [address] 69312- 5170 08 Dec, 2016 PTSD (post-traumatic stress disorder) F43.10 ; Mood disorder F39 and Obsessive-compulsive disorder, unspecified type F42.9 [facility] [address] [address]- 9317 Dec, PTSD (post-traumatic stress disorder) F43.10 and Bipolar I disorder with depression F31.9 [facility] [address] [place] [address] 73414 -6098 Dec, Adverse drug reaction, initial encounter T88.7XXA [facility] [address] [address]- 5726 Dec, [facility] [address] [place] [address] 67649- 0772 Nov, PTSD (post-traumatic stress disorder) F43.10 and Bipolar I disorder with depression F31.9 [facility] [address] [address]- 9063 Nov, PTSD (post-traumatic stress disorder) F43.10 ; Mood disorder F39 and Obsessive-compulsive disorder, unspecified type F42.9 [facility] [address] [address]- 0670 Nov, PTSD (post-traumatic stress disorder) F43.10 and Bipolar I disorder with depression F31.9 [facility] [address] [facility] [id number] [address] 2546 Nov, PTSD (post-traumatic stress disorder) F43.10 and Bipolar I disorder with depression F31.9 [facility] [address] [facility] [id number] [address] 2546 Nov, [facility] [address] [facility] [id number] [address] 254 Nov, PTSD (post-traumatic stress disorder) F43.10 and Bipolar I disorder with depression F31.9 [facility] [address] [facility] [id number] [address]- 1276 Nov, PTSD (post-traumatic stress disorder) F43.10 and Bipolar I disorder with depression F31.9 [facility] [address] [facility] [id number] [address]- 0499 Oct, [facility] [address] [facility] [id number] [address]- 7850 Oct, PTSD (post-traumatic stress disorder) F43.10 ; Mood disorder F39 and Obsessive-compulsive disorder, unspecified type F42.9 [facility] [address] [place] [id number] [address]- 8016 Oct, PTSD (post-traumatic stress disorder) F43.10 and Bipolar I disorder with depression F31.9 [facility] [address] [facility] [id number] [place] [address]- 2092 Oct, PTSD (post-traumatic stress disorder) F43.10 and Bipolar I disorder with depression F31.9 [facility] [address] [facility] [id number] [place] [address] 2546 Oct, PTSD (post-traumatic stress disorder) F43.10 ; Mood disorder F39 and Obsessive-compulsive disorder, unspecified type F42.9 [facility] [address] [facility] [id number] [place] 2126 Oct, [facility] [address] [address]- 4018 Oct, PTSD (post-traumatic stress disorder) F43.10 and Bipolar I disorder with depression F31.9 [facility] [address] [place] [address] 62805- 4915 Oct, PTSD (post-traumatic stress disorder) F43.10 ; Mood disorder F39 and Obsessive-compulsive disorder, unspecified type F42.9 [place] [id number] [place] [address] 17617- 1954 Sep, PTSD (post-traumatic stress disorder) F43.10 and Bipolar I disorder with depression F31.9 [place] [id number] [place] [address] 16964- 6608 Sep, PTSD (post-traumatic stress disorder) F43.10 ; Mood disorder F39 and Obsessive-compulsive disorder, unspecified type F42.9 [place] [id number] [place] [address] 84655- 1585 Sep, PTSD (post-traumatic stress disorder) F43.10 and Bipolar I disorder with depression F31.9 [place] [id number] [place] [address] 58243- 3107 Sep, PTSD (post-traumatic stress disorder) F43.10 and Bipolar I disorder with depression F31.9 [place] [address] [place] [address] 69266- 9964 August, PTSD (post-traumatic stress disorder) F43.10 and Bipolar I disorder with depression F31.9 [facility] [address] [place] [address] 16876 -0163 August, Pharyngitis due to other organism J02.8 [place] [address] [place] [address] 03058- 2123 August, PTSD (post-traumatic stress disorder) F43.10 ; Bipolar 1 disorder, mixed F31.60 and 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 [place] [address] [address]- 4633 August, PTSD (post-traumatic stress disorder) F43.10 and Bipolar I disorder with depression F31.9 [facility] [address] [address]- 4302 Jul, PTSD (post-traumatic stress disorder) F43.10 and Bipolar I disorder with depression F31.9 [facility] [address] [place] [address] 54424- 9581 Jul, PTSD (post-traumatic stress disorder) F43.10 and Bipolar I disorder with depression F31.9 [facility] [id number] [place] [address] 51615- 2297 Jul, PTSD (post-traumatic stress disorder) F43.10 and Bipolar I disorder with depression F31.9 [place] [id number] [place] [address] 31979- 6492 Jul, 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 [facility] [address] [place] [address] 44089- 3028 Jun, PTSD (post-traumatic stress disorder) F43.10 and Bipolar I disorder with depression F31.9 [facility] [address] [address]- 8226 Jun, Bipolar 1 disorder, mixed F31.60 ; PTSD (post-traumatic stress disorder) F43.10 and Other senior living (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.899 [facility] [address] [address]- 8001 Jun, PTSD (post-traumatic stress disorder) F43.10 and Depression , unspecified depression type F32.9 [facility] [address] [address]- 9766 Jun, PTSD (post-traumatic stress disorder) F43.10 and Depression , unspecified depression type F32.9 [facility] [id number] [place] [address] 47340- 9660 Jun, PTSD (post-traumatic stress disorder) F43.10 and Depression , unspecified depression type F32.9 [facility] [address] 00556 -2684 May, Fever, unspecified fever cause R50.9 and Gastroenteritis K52.9 [place] [address] 60596- 0038 Mar, Sprain of other ligament of right ankle, subsequent encounter S93.491D [place] [address] 98780- 0656 Mar, [facility] [place] [address] 06408 -9649 Feb, Scabies infestation B86 [place] [address] 50112- 5868 Feb, Dental caries K02.9 [place] [address] 49944- 8337 Jan, [facility] [place] [address] 38071 -7055 Jan, Pharyngitis, unspecified etiology J02.9 [place] [address] 84723- 2655 Jan, [place] [address] 66930- 0851 Jan, Bipolar affective disorder, remission status unspecified F31.9 [place] [address] 55553- 9090 Jan, Encounter for dental examination and cleaning without abnormal findings Z01.20 [place] [id number] [place] [address] 88880- 7045 Jan, Bipolar affective disorder, remission status unspecified F31.9 [place] [id number] [place] [address] 13876- 8891 29 Dec, 2015 Bipolar affective disorder, remission status unspecified F31.9 and Depression, unspecified depression type F32.9 [place] [id number] [place] [address] 09996- 2236 12 Dec, 2015 Unspecified mood [affective] disorder F39 and Generalized anxiety disorder F41.1 [place] [id number] [place] [address] 66178- 9552 08 Dec, 2015 Depression, unspecified depression type F32.9 [place] [id number] [place] [address] 45806- 1170 Nov, Dental caries K02.9 [place] [id number] [place] [address] 41931- 7593 Nov, Dental examination Z01.20 [place] [id number] [place] [address] 06140- 3362 Sep, Bipolar affective disorder, remission status unspecified F31.9 [place] [id number] [place] [address] 20938- 0739 August, Tension headache G44.209 [facility] [id number] [place] [address] 15953 -9659 Jul, [facility] [id number] [place] [address] 17448 -7755 Jul, Upper respiratory infection J06.9 and Gastroenteritis K52.9 [place] [id number] [place] [address] 70144- 6678 Jun, Bronchitis J40 [facility] [address] 19318 -5421 Feb, Thoracic back pain M54.6 and Left shoulder pain M25.512 [place] [id number] [place] [address] 99240- 4717 Feb, [place] [address] [place] [address]- 8533 14 Jul, 2014 [facility] [address] [id number] [place] [address]- 7549 13 Jul, 2014 [facility] [place] [facility] [address] [id number] [place] [address]- 3072 Apr, [facility] [address] [id number] [place] [address]- 3442 Apr, [facility] [place] [facility] [address] [id number] [place] [address]- 1973 Apr, [facility] [address] [id number] [place] [address]- 0698 Apr, [facility] [address] [id number] [place] [address]- 3032 Mar, [facility] [place] [facility] [address] [id number] [place] [address]- 9282 Mar, [facility] [address] [id number] [place] [address]- 2311 Mar, [facility] [place] [facility] [address] [id number] [place] [address]- 4655 Mar, [facility] [address] [facility] [id number] [place] [address]- 0603 Feb, [facility] [place] [facility] [address] [id number] [place] [address]- 6787 Feb, [facility] [place] [facility] [address] [id number] [place] [address]- 5960 Feb, [facility] [place] [facility] [address] [id number] [place] [address]- 9417 Feb, [facility] [place] [facility] [address] [id number] [place] [address]- 3046 Jan, [facility] [place] [facility] [address] [id number] [place] [address] Jan, [facility] [place] [facility] [address] [id number] [place] [address]- 9869 14 Jan, 2014 [facility] [place] [facility] [address] [id number] [place] [address]- 1364 14 Jan, 2014 [facility] [place] [facility] [address] [id number] [place] [address]- 3300 Jan, [facility] [place] [facility] [address] [id number] [place] [address]- 4666 Jan, [facility] [place] [facility] [address] [id number] [place] [address]- 3599 Dec, [facility] [place] [facility] [address] [id number] [place] [address]- 5025 Dec, [facility] [place] [facility] [address] [id number] [place] [address]- 3536 Nov, [facility] [place] [facility] [address] [id number] [place] [address]- 5111 Nov, [facility] [place] [facility] [address] [id number] [place] [address]- 8540 Nov, [facility] [place] [facility] [address] [id number] [place] [address]- 6997 Nov, [facility] [place] [facility] [address] [id number] [place] [address]- 4825 Nov, [facility] [place] [facility] [address] [id number] [place] [address]- 9645 Nov, [facility] [place] [facility] [address] [id number] [place] [address]- 5732 Nov, [facility] [place] [facility] [address] [id number] [place] [address]- 0680 Nov, [facility] [place] [facility] [address] [id number] [place] [address]- 5860 Nov, [facility] [place] [facility] [address] [id number] [address]- 3677 Oct, 2013 [facility] [place] [facility] [address] [id number] [place] [address]- 2115 Oct, 2013 [facility] [place] [facility] [address] [id number] [place] [address]- 6378 Oct, 2013 [facility] [place] [facility] [address] [id number] [place] [address]- 1961 Oct, 2013 [facility] [place] [facility] [address] [id number] [place] [address]- 2929 Oct, 2013 [facility] [place] [facility] [address] [id number] [place] [address]- 0541 Oct, 2013 [facility] [place] [facility] [address] [id number] [place] [address]- 4211 Oct, 2013 [facility] [place] [facility] [address] [id number] [place] [address] Oct, 2013 [facility] [place] [facility] [address] [id number] [place] [address] 15 Oct, 2013 [facility] [place] [facility] [address] [id number] [place] [address] Oct, 2013 [facility] [place] [facility] [address] [id number] [place] [address] Oct, 2013 [facility] [place] [facility] [address] [id number] [place] [address] Oct, 2013 [facility] [place] [facility] [address] [id number] [place] [address] 05 Oct, 2013 [facility] [place] [facility] [address] [id number] [place] [address] Oct, 2013 [facility] [place] [facility] [address] [id number] [place] [address] Oct, 2013 [facility] [place] [facility] [address] [id number] [place] [address] Oct, 2013 [facility] [place] [facility] [address] [id number] [place] [address] Oct, [facility] [place] [facility] [address] [id number] [place] [address] Oct, [facility] [place] [facility] [address] [id number] [place] [address] Oct, [facility] [place] [facility] [address] [id number] [place] [address] Sep, [facility] [place] [facility] [address] [id number] [place] [address] Sep, [facility] [place] [facility] [address] [id number] [place] [address] Sep, [facility] [place] [facility] [address] [id number] [place] [address] Sep, [facility] [place] [facility] [address] [id number] [place] [address] Feb, [facility] [place] [facility] [address] [id number] [place] [address] Feb, [facility] [place] [facility] [address] [id number] [place] [address] Dec, [facility] [place] [facility] [address] [id number] [place] [address] Dec, [facility] [place] [facility] [address] [id number] [place] [address] Nov, [facility] [place] [facility] [address] [id number] [place] [address] Nov, [facility] [place] [facility] [address] [id number] [place] [address] Nov, [facility] [place] [facility] [address] [id number] [place] [address] Nov, [facility] [place] [facility] [address] [id number] [place] [address] Nov, [facility] [address] [id number] [place] [address] Nov, [facility] [place] [facility] [address] [id number] [place] [address] Oct, [facility] [place] [facility] [address] [id number] [place] [address] Apr, [facility] [place] [facility] [address] [id number] [place] [address] August, [facility] [address] [id number] [place] [address] August, [facility] [place] [facility] [address] [id number] [place] [address] August, [facility] [place] [facility] [address] [id number] [place] [address] Jul, [facility] [place] [facility] [address] [id number] [place] [address] Jun, [facility] [place] [facility] [address] [id number] [place] [address] Jun, [facility] [place] [facility] [address] [id number] [place] [address] Jun, [facility] [place] [facility] [address] [id number] [place] [address] Jun, [facility] [place] [facility] [address] [id number] [place] [address] Jun, [facility] [place] [facility] [address] [id number] [place] [address] Jun, [facility] [place] [facility] [address] [id number] [place] [address] May, [facility] [place] [facility] [address] [id number] [place] [address] May, [facility] [place] [facility] [address] [id number] [place] [address] 09 May, 2011 [facility] [address] [id number] [place] [address] 07 May, 2011 [facility] [place] [facility] [address] [id number] [place] [address] 06 May, 2011 [facility] [address] [id number] [place] [address] May, 2011 [facility] [place] [facility] [address] [id number] [place] [address] Apr, [facility] [address] [id number] [place] [address] 07 Mar, 2011 [facility] [address] [facility] [id number] [place] [address] 06 Mar, 2011 [facility] [address] [facility] [id number] [place] [address] Feb, [facility] [address] [id number] [place] [address] Jan, [facility] [address] [facility] [id number] [place] [address] Mar, [facility] [address] [facility] [id number] [place] [address] 15 Mar, 2009 [facility] [place] [facility] [address] [facility] [id number] [place] [address] 10 Mar, 2009 [facility] [place] [facility] [address] [id number] [place] [address] 10 Mar, 2009 [facility] [place] [facility] [address] [id number] [place] [address] 02 Mar, 2009 [facility] [place] [facility] [address] [facility] [id number] [place] [address] 16 Feb, 2009 [facility] [place] [facility] [address] [facility] [id number] [place] [address] Feb, [facility] [address] [facility] [id number] [place] [address] Nov, [facility] [address] [facility] [id number] [place] [address] May, IMMUNIZATIONS No Known Immunizations SOCIAL HISTORY Never Assessed REASON FOR VISIT Follow-up PTSD/Bipolar Disorder PLAN OF CARE Activity Details Follow Up 1 Week Reason: Follow-up VITAL SIGNS MEDICATIONS Unknown Medications RESULTS No Results PROCEDURES Procedure Date Ordered Result Body Site Psychotherapy, patient &/family, 45 minutes, established patient September 11, 2017 INSTRUCTIONS MEDICATIONS ADMINISTERED No Known Medications MEDICAL (GENERAL) HISTORY Type Description Date Medical History HELP syndrome Medical History bi-polar Medical History hypertension Medical History hx of seizure x1, isolated Surgical History gallbladder 10/2013 Surgical History 03/2014 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
--- OUTSIDE RECORDS SUMMARY | 2017-12-25 20:09 | XMS REPORT ---
Author Author MARIANO REDDY [facility] Address [address] [place] [address] Care Team Providers Care Sleep Technologist Name Role Phone MARIANO REDDY Unavailable PROBLEMS Type Condition ICD9-CM Code [id number] Code Onset Dates Condition Status SNOMED Code Problem Bipolar I disorder with depression F31.9 Active 04459252 Problem Amenorrhea N91.2 Active 87946593 Problem Social anxiety disorder F40.10 Active 45977696 Problem Obsessive-compulsive disorder, unspecified type F42.9 Active 704953544 Problem PTSD (post-traumatic stress disorder) F43.10 Active 97714680 Problem Mood disorder F39 Active 96343566 Problem 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 Active 76821463 ALLERGIES Substance Reaction Event Type Date Status Lamictal rash/blisters Drug Allergy August, Active Azithromycin hives Drug Allergy August, Active ORAGEL Unknown Non Drug Allergy August, Active ENCOUNTERS Encounter Location Date Diagnosis [place] [id number] [place] [address] 74794- 1085 Nov, [facility] [id number] [place] [address] 05945- 4736 Oct, PTSD (post-traumatic stress disorder) F43.10 and Bipolar I disorder with depression F31.9 [facility] [address] [address] 8456 Oct, [facility] [address] [place] [id number] [place] [address] 00691- 0260 Oct, PTSD (post-traumatic stress disorder) F43.10 and Bipolar I disorder with depression F31.9 [facility] [address] [address] 2120 Oct, [facility] [address], [place] [address] 0138 Sep, Bipolar I disorder with depression F31.9 [place] [address] [place] [address] [id number] [place] [address] 27627- 8621 Sep, Bipolar I disorder with depression F31.9 ; PTSD (post- traumatic stress disorder) F43.10 ; 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 ; Social anxiety disorder F40.10 and BMI 50.0-59.9, adult Z68.43 [place] [address] [place] [address] 52887- 8376 Sep, PTSD (post-traumatic stress disorder) F43.10 and Bipolar I disorder with depression F31.9 [place] [address] [address] [id number] [place] [address] 63859- 1350 Sep, PTSD (post-traumatic stress disorder) F43.10 and Bipolar I disorder with depression F31.9 [place] [address] [address] [id number] [place] [address] 74882- 0240 August, PTSD (post-traumatic stress disorder) F43.10 and Bipolar I disorder with depression F31.9 [place] [id number] [place] [address] 40600- 0667 August, Bipolar I disorder with depression F31.9 ; PTSD (post- traumatic stress disorder) F43.10 ; 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 ; Social anxiety disorder F40.10 and BMI 50.0-59.9, adult Z68.43 [place] [address], [place] [address] 1805 August, [place] [address] [place] [id number] [place] [address] 76519- 9227 August, Bipolar I disorder with depression F31.9 ; PTSD (post- traumatic stress disorder) F43.10 ; 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 ; Social anxiety disorder F40.10 and BMI 50.0-59.9, adult Z68.43 [place] [address] [place] [address] 54110- 3732 August, [place] [address] [place] [id number] [place] [address] 47323- 2861 August, [place] [address] [address] [id number] [place] [address] 70371- 9275 August, PTSD (post-traumatic stress disorder) F43.10 and Bipolar I disorder with depression F31.9 [place] [address] [place] [id number] [place] [address] 75408- 5381 August, [place] [address] [address] [id number] [place] [address] 03924- 4733 Jul, Bipolar I disorder with depression F31.9 ; PTSD (post- traumatic stress disorder) F43.10 ; 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 ; Social anxiety disorder F40.10 and BMI 50.0-59.9, adult Z68.43 [place] [address] [id number] [place] [address] 80746- 0430 Jul, PTSD (post-traumatic stress disorder) F43.10 and Bipolar I disorder with depression F31.9 [place] [address] [id number] [place] [address] 02871- 0111 Jul, Pelvic pain R10.2 ; Amenorrhea N91.2 and BMI 50.0-59.9, adult Z68.43 [place] [address] [place] [id number] [place] [address] 87679- 3361 Jun, BMI 50.0-59.9, adult Z68.43 ; Bipolar I disorder with depression F31.9 ; PTSD (post-traumatic stress disorder) F43.10 and 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 [facility] [place] [address] [id number] [place] [address] 56646 -1656 Jun, Other viral agents as the cause of diseases classified elsewhere B97.89 ; Other specified respiratory disorders J98.8 ; Bronchitis J40 and Cough R05 [place] [address] [place] [address]- 3380 13 Jun, 2017 PTSD (post-traumatic stress disorder) F43.10 [place] [address] [place] [id number] [place] [address] 13656- 0015 13 Jun, 2017 PTSD (post-traumatic stress disorder) F43.10 and Bipolar I disorder with depression F31.9 [place] [address] [place] [id number] [place] [address] 20345- 5359 13 May, 2017 PTSD (post-traumatic stress disorder) F43.10 and Bipolar I disorder with depression F31.9 [place] [address] [place] [id number] [place] [address] 24083- 4549 12 May, 2017 [place] [address] [place] [id number] [place] [address] 93603- 8557 07 May, 2017 PTSD (post-traumatic stress disorder) F43.10 and Bipolar I disorder with depression F31.9 [place] [address] [place] [id number] [place] [address] 13039- 2777 Apr, PTSD (post-traumatic stress disorder) F43.10 and Bipolar I disorder with depression F31.9 [place] [address] [place] [id number] [place] [address] 07495- 4931 Apr, PTSD (post-traumatic stress disorder) F43.10 and Bipolar I disorder with depression F31.9 [place] [address] [place] [id number] [place] [address] 14366- 0844 Mar, PTSD (post-traumatic stress disorder) F43.10 ; Obsessive- compulsive disorder, unspecified type F42.9 ; Bipolar I disorder with depression F31.9 and Other exterminator (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.899 [place] [address] [place] [id number] [place] [address] 14904- 3336 Mar, PTSD (post-traumatic stress disorder) F43.10 and Bipolar I disorder with depression F31.9 [place] [address] [place] [id number] [place] [address] 66263- 0337 Feb, PTSD (post-traumatic stress disorder) F43.10 and Bipolar I disorder with depression F31.9 [facility] [address] [place] [address] 42383- 3815 Feb, PTSD (post-traumatic stress disorder) F43.10 and Bipolar I disorder with depression F31.9 [facility] [id number] [place] [address] 71253 -3847 Jan, Strep pharyngitis J02.0 [facility] [id number] [place] [address] 76986- 4958 Jan, [place] [address] [place] [id number] [place] [address] 74407- 7553 Jan, [facility] [address] [place] [id number] [place] [address] 00936- 2650 Jan, PTSD (post-traumatic stress disorder) F43.10 and Bipolar I disorder with depression F31.9 [facility] [address] [place] [address] [id number] [place] [address] 24007- 6718 Jan, PTSD (post-traumatic stress disorder) F43.10 and Bipolar I disorder with depression F31.9 [facility] [address] [place] [address] 47049- 6792 Jan, Other detention (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.899 [place] [address] [place] [id number] [place] [address] 21367- 4744 Jan, PTSD (post-traumatic stress disorder) F43.10 ; Obsessive- compulsive disorder, unspecified type F42.9 ; Bipolar I disorder with depression F31.9 and Other exterminator (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.899 [place] [address] [place] [id number] [place] [address] 94807- 6393 Dec, Encounter for IUD removal Z30.432 and control counseling Z30.09 [place] [address] [place] [id number] [place] [address] 51387- 5221 Dec, PTSD (post-traumatic stress disorder) F43.10 ; Obsessive- compulsive disorder, unspecified type F42.9 and Bipolar I disorder with depression F31.9 [facility] [address] [place] [address] 09045- 7096 Dec, PTSD (post-traumatic stress disorder) F43.10 and Bipolar I disorder with depression F31.9 [facility] [address] [place] [address] 00638- 7476 Dec, PTSD (post-traumatic stress disorder) F43.10 and Bipolar I disorder with depression F31.9 [facility] [address] [place] [address] [id number] [place] [address] 29475- 9865 Dec, Mood disorder F39 [facility] [address] [id number] [place] [address] 59175- 5155 08 Dec, 2016 PTSD (post-traumatic stress disorder) F43.10 ; Mood disorder F39 and Obsessive-compulsive disorder, unspecified type F42.9 [facility] [address] [place] [address] 04750- 2829 Dec, PTSD (post-traumatic stress disorder) F43.10 and Bipolar I disorder with depression F31.9 [facility] [address] [address] -7680 Dec, Adverse drug reaction, initial encounter T88.7XXA [facility] [address], [place] [address]- 9696 Dec, [facility] [id number] [place] [address] 74187- 6387 Nov, PTSD (post-traumatic stress disorder) F43.10 and Bipolar I disorder with depression F31.9 [facility] [id number] [place] [address] 07639- 7542 Nov, PTSD (post-traumatic stress disorder) F43.10 ; Mood disorder F39 and Obsessive-compulsive disorder, unspecified type F42.9 [facility] [address] [id number] [address]- 8242 Nov, PTSD (post-traumatic stress disorder) F43.10 and Bipolar I disorder with depression F31.9 [facility] [address] [place] [id number] [address]- 8296 Nov, PTSD (post-traumatic stress disorder) F43.10 and Bipolar I disorder with depression F31.9 [facility] [address] [address] -8863 Nov, [facility] [address] [place] [id number] [address]- 6798 Nov, PTSD (post-traumatic stress disorder) F43.10 and Bipolar I disorder with depression F31.9 [facility] [address] [place] [address] [id number] [address]- 6197 Nov, PTSD (post-traumatic stress disorder) F43.10 and Bipolar I disorder with depression F31.9 [facility] [address], [place] [address]- 4118 Oct, [facility] [address] [place] [address] 44279- 0353 Oct, PTSD (post-traumatic stress disorder) F43.10 ; Mood disorder F39 and Obsessive-compulsive disorder, unspecified type F42.9 [facility] [address] [place] [id number] [address]- 8904 Oct, PTSD (post-traumatic stress disorder) F43.10 and Bipolar I disorder with depression F31.9 [facility] [address] [place] [address] [id number], [place] [address]- 0139 Oct, PTSD (post-traumatic stress disorder) F43.10 and Bipolar I disorder with depression F31.9 [facility] [address] [place] [address] [id number] [address]- 6161 Oct, PTSD (post-traumatic stress disorder) F43.10 ; Mood disorder F39 and Obsessive-compulsive disorder, unspecified type F42.9 [facility] [address], [place] [address]- 2242 Oct, [facility] [address] [place] [id number] [place] [address] 70665- 6324 Oct, PTSD (post-traumatic stress disorder) F43.10 and Bipolar I disorder with depression F31.9 [facility] [address] [place] [id number] [place] [address] 96015- 9842 Oct, PTSD (post-traumatic stress disorder) F43.10 ; Mood disorder F39 and Obsessive-compulsive disorder, unspecified type F42.9 [facility] [address] [place] [id number] [place] [address] 65181- 4210 Sep, PTSD (post-traumatic stress disorder) F43.10 and Bipolar I disorder with depression F31.9 [facility] [address] [place] [id number] [place] [address] 57537- 5728 Sep, PTSD (post-traumatic stress disorder) F43.10 ; Mood disorder F39 and Obsessive-compulsive disorder, unspecified type F42.9 [facility] [address] [place] [address] 30544- 3321 Sep, PTSD (post-traumatic stress disorder) F43.10 and Bipolar I disorder with depression F31.9 [facility] [address] [place] [address] 18922- 1256 Sep, PTSD (post-traumatic stress disorder) F43.10 and Bipolar I disorder with depression F31.9 [facility] [address] [place] [address] 50930- 3997 August, PTSD (post-traumatic stress disorder) F43.10 and Bipolar I disorder with depression F31.9 [facility]ALK [facility] [address] [place] [address] 06229 -5474 August, Pharyngitis due to other organism J02.8 [facility] [address] [place] [id number] [place] [address] 48609- 4526 August, PTSD (post-traumatic stress disorder) F43.10 ; Bipolar 1 disorder, mixed F31.60 and Other exterminator (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.899 [facility] [address] [place] [address] 00489- 8906 August, PTSD (post-traumatic stress disorder) F43.10 and Bipolar I disorder with depression F31.9 [facility] [id number] [place] [address] 79546- 4700 Jul, PTSD (post-traumatic stress disorder) F43.10 and Bipolar I disorder with depression F31.9 [facility] [address] [place] [id number] [place] [address] 38561- 9394 Jul, PTSD (post-traumatic stress disorder) F43.10 and Bipolar I disorder with depression F31.9 [facility] [address] [place] [id number] [place] [address] 44674- 4801 Jul, PTSD (post-traumatic stress disorder) F43.10 and Bipolar I disorder with depression F31.9 [facility] [address] [place] [id number] [place] [address] 67684- 0157 Jul, Other exterminator (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.899 [facility] [address] [place] [id number] [place] [address] 77936- 2518 Jun, PTSD (post-traumatic stress disorder) F43.10 and Bipolar I disorder with depression F31.9 [facility] [address] [place] [id number] [place] [address] 89280- 0686 Jun, Bipolar 1 disorder, mixed F31.60 ; PTSD (post-traumatic stress disorder) F43.10 and Other exterminator (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.899 [facility] [address] [place] [id number] [place] [address] 71412- 9327 Jun, PTSD (post-traumatic stress disorder) F43.10 and Depression , unspecified depression type F32.9 [facility] [address] [place] [id number] [place] [address] 04195- 0559 Jun, PTSD (post-traumatic stress disorder) F43.10 and Depression , unspecified depression type F32.9 [place] [address] 22558- 0554 Jun, PTSD (post-traumatic stress disorder) F43.10 and Depression , unspecified depression type F32.9 [facility] [address] 16996 -8425 May, Fever, unspecified fever cause R50.9 and Gastroenteritis K52.9 [place] [address] 14219- 9002 Mar, Sprain of other ligament of right ankle, subsequent encounter S93.491D [place] [address] 72907- 4705 Mar, [facility] [place] [address] 05695 -1775 Feb, Scabies infestation B86 [place] [address] 22107- 4734 Feb, Dental caries K02.9 [place] [address] 59933- 2211 Jan, [facility] [place] [address] [place] [id number] [place] [address] 62288 -2982 Jan, Pharyngitis, unspecified etiology J02.9 [place] [address] 26907- 0349 Jan, [place] [address] 48898- 6200 Jan, Bipolar affective disorder, remission status unspecified F31.9 [place] [address] 12406- 2134 Jan, Encounter for dental examination and cleaning without abnormal findings Z01.20 [place] [address] [place] [id number] [place] [address] 69456- 4432 Jan, Bipolar affective disorder, remission status unspecified F31.9 [place] [address] [place] [id number] [place] [address] 97021- 9007 29 Dec, 2015 Bipolar affective disorder, remission status unspecified F31.9 and Depression, unspecified depression type F32.9 [place] [address] [place] [id number] [place] [address] 02912- 4903 Dec, Unspecified mood [affective] disorder F39 and Generalized anxiety disorder F41.1 [place] [address] [place] [id number] [place] [address] 89261- 6702 08 Dec, 2015 Depression, unspecified depression type F32.9 [place] [address] [place] [id number] [place] [address] 01011- 8488 Nov, Dental caries K02.9 [place] [address] [place] [id number] [place] [address] 16445- 1331 Nov, Dental examination Z01.20 [place] [address] [place] [id number] [place] [address] 26718- 8648 Sep, Bipolar affective disorder, remission status unspecified F31.9 [place] [address] [place] [id number] [place] [address] 98767- 4031 August, Tension headache G44.209 [facility] [address] [id number] [place] [address] 60605 -0362 Jul, [facility] [address] [id number] [place] [address] 70231 -9491 Jul, Upper respiratory infection J06.9 and Gastroenteritis K52.9 [place] [address] [place] [address] [id number] [place] [address] 89726- 8353 Jun, Bronchitis J40 [facility] [id number] [place] [address] 99504 -5792 05 Feb, 2015 Thoracic back pain M54.6 and Left shoulder pain M25.512 [facility] [place] [facility] [address] [id number] [place] [address]- 4712 05 Feb, 2015 [facility] [place] [facility] [address] [id number] [place] [address]- 3576 14 Jul, 2014 [facility] [place] [facility] [address] [id number] [place] [address]- 2536 Jul, [facility] [place] [facility] [address] [id number] [place] [address]- 0722 Apr, [facility] [place] [facility] [address] [id number] [place] [address]- 2097 Apr, [facility] [place] [facility] [address] [id number] [place] [address]- 0623 Apr, [facility] [place] [facility] [address] [id number] [place] [address]- 3822 Apr, [facility] [place] [facility] [address] [id number], [place] [address]- 5037 Mar, [facility] [place] [facility] [address] [id number] [place] [address]- 0699 Mar, [facility] [place] [facility] [address] [facility] [id number], [place] [address]- 7422 Mar, [facility] [place] [facility] [address] [id number], [place] [address]- 2756 Mar, [facility] [place] [facility] [address] [id number], [place] [address]- 2410 Feb, [facility] [place] [facility] [address] [id number] [place] [address]- 9409 Feb, [facility] [place] [facility] [address] [id number], [place] [address]- 8630 Feb, [facility] [place] [facility] [address] [facility] [id number] 9786 Feb, [facility] [place] [facility] [address] [id number], [place] [address]- 9811 15 Jan, 2014 [facility] [place] [facility] [address] [id number] [place] [address]- 6098 15 Jan, 2014 [facility] [place] [facility] [address] [id number] [place] [address]- 0160 14 Jan, 2014 [facility] [place] [facility] [address] [id number] [place] [address]- 2457 14 Jan, 2014 [facility] [place] [facility] [address] [id number] [place] [address]- 1290 13 Jan, 2014 [facility] [place] [facility] [address] [id number] [place] [address]- 3249 Jan, [facility] [place] [facility] [address] [id number] [place] [address]- 8206 15 Dec, 2013 [facility] [place] [facility] [address] [id number] [place] [address]- 7182 Dec, [facility] [place] [facility] [address] [id number] [place] [address]- 1587 Nov, [facility] [place] [facility] [address] [id number] [place] [address]- 2250 Nov, [facility] [place] [facility] [address] [id number] [place] [address]- 9740 Nov, [facility] [place] [facility] [address] [id number] [place] [address]- 0957 Nov, [facility] [place] [facility] [address] [id number], [place] [address]- 7962 Nov, [facility] [place] [facility] [address] [id number] [place] [address]- 2287 Nov, [facility] [place] [facility] [address] [id number] [place] [address]- 7866 Nov, [facility] [place] [facility] [address] [id number] [place] [address]- 6303 Nov, [facility] [place] [facility] [address] [id number] [place] [address]- 1972 Nov, [facility] [place] [facility] [address] [id number] [place] [address]- 1922 Oct, [facility] [place] [facility] [address] [id number] [place] [address]- 0489 Oct, [facility] [place] [facility] [address] [id number] [place] [address]- 5117 Oct, [facility] [place] [facility] [address] [id number] [place] [address]- 6427 Oct, [facility] [place] [facility] [address] [id number] [place] [address]- 3[address] Oct, [facility] [place] [facility] [address] [id number] [place] [address] Oct, [facility] [place] [facility] [address] [id number] [place] [address] Oct, [facility] [place] [facility] [address] [id number] [place] [address] Oct, [facility] [place] [facility] [address] [id number] [place] [address] Oct, [facility] [place] [facility] [address] [id number] [place] [address] Oct, [facility] [place] [facility] [address] [id number] [place] [address] Oct, [facility] [place] [facility] [address] [id number] [place] [address] Oct, [facility] [place] [facility] [address] [id number] [place] [address] Oct, [facility] [place] [facility] [address] [id number] [place] [address] Oct, [facility] [place] [facility] [address] [id number] [place] [address] Oct, [facility] [place] [facility] [address] [id number] [place] [address] Oct, [facility] [place] [facility] [address] [id number] [place] [address] Oct, [facility] [place] [facility] [address] [id number] [place] [address] Oct, [facility] [place] [facility] [address] [id number] [place] [address] Oct, [facility] [place] [facility] [address] [id number] [place] [address] Sep, [facility] [place] [facility] [address] [id number] [place] [address] Sep, [facility] [place] [facility] [address] [id number] [place] [address] Sep, [facility] [place] [facility] [address] [id number] [place] [address] Sep, [facility] [place] [facility] [address] [id number] [place] [address] Feb, [facility] [place] [facility] [address] [id number] [place] [id number] Feb, [facility] [place] [facility] [address] [id number], [place] [address] Dec, [facility] [place] [facility] [address] [id number], [place] [address] Dec, [facility] [place] [facility] [address] [id number] [place] [address] Nov, [facility] [place] [facility] [address] [id number] [place] [address] Nov, [facility] [place] [facility] [address] [id number] [place] [address] Nov, [facility] [place] [facility] [address] [id number] [place] [address] Nov, [facility] [address] [id number] [place] [address] Nov, [facility] [place] [facility] [address] [id number] [place] [address] Nov, [facility] [address] [id number] [place] [address] Oct, [facility] [place] [facility] [address] [id number] [place] [address] Apr, [facility] [address] [id number] [place] [address] August, [facility] [address] [id number] [place] [address] August, [facility] [address] [id number] [place] [address] August, [facility] [address] [id number] [place] [address] Jul, [facility] [address] [id number] [place] [address] Jun[facility] [address] [id number] [place] [address] Jun, [facility] [place] [facility] [address] [id number] [place] [address] Jun, [facility] [place] [facility] [address] [id number] [place] [address] Jun, [facility] [place] [facility] [address] [id number] [place] [address] Jun, [facility] [place] [facility] [address] [id number] [place] [address] Jun, [facility] [place] [facility] [address] [id number] [place] [address] May, [facility] [place] [facility] [address] [id number] [place] [address] 16 May, 2011 [facility] [place] [facility] [address] [id number] [place] [address] May, [facility] [place] [facility] [address] [id number] [place] [address] 07 May, 2011 [facility] [place] [facility] [address] [id number] [place] [address] May, [facility] [address] [id number] [place] [address] May, [facility] [place] [facility] [address] [id number] [place] [address] Apr, [facility] [place] [facility] [address] [id number] [place] [address] Mar, [facility] [place] [facility] [address] [id number], [place] [address] Mar, [facility] [place] [facility] [address] [id number] [place] [address] Feb, [facility] [place] [facility] [address] [facility] [id number], [place] [address] Jan, [facility] [place] [facility] [address] [id number], [place] [address] 31 Mar, 2009 [facility] [place] [facility] [address] [id number], [place] [address] 15 Mar, 2009 [facility] [place] [facility] [address] [id number] [place] [address] 10 Mar, 2009 [facility] [place] [facility] [address] [id number], [place] [address] 10 Mar, 2009 [facility] [place] [facility] [address] [id number] [place] [address] 02 Mar, 2009 [facility] [place] [facility] [address] [facility] [id number] [place] [address] Feb, [facility] [address] [facility] [id number], [place] [address] Feb, [facility] [address] [facility] [id number], [place] [address] Nov, [facility] [address] [facility] [id number], [place] [address] May, IMMUNIZATIONS No Known Immunizations SOCIAL HISTORY Never Assessed REASON FOR VISIT f/uRosemary [place], contract PLAN OF CARE Activity Details Follow Up 4 Weeks, prn Reason: VITAL SIGNS Height 64 in 2017-09-11 Weight 298.6 lbs 2017-09-11 Heart Rate 84 bpm 2017-09-11 Respiratory Rate 20 2017-09-11 BMI 51.25 kg/m2 2017-09-11 Blood pressure systolic 142 mmHg 2017-09-11 Blood pressure diastolic 98 mmHg 2017-09-11 MEDICATIONS Medication Instructions Dosage Frequency Start Date End Date Duration Status Trileptal 300 MG Orally Twice a day 1 tablet 12h August, 30 day(s ) Active Latuda 120 MG Orally Once a day at supper with food 1 tablet Active Valium 2 MG Orally Twice a day prn 1 tablet August, Active Naprosyn 500 mg Orally every 12 hrs 1 tablet with food or milk as needed 12h August, Active Sprintec 28 0.25-35 MG-MCG Orally Once a day 1 tablet 24h 27 Dec, 2016 30 day(s) Active RESULTS No Results PROCEDURES No Known procedures INSTRUCTIONS MEDICATIONS ADMINISTERED No Known Medications MEDICAL (GENERAL) HISTORY Type Description Date Medical History HELP syndrome Medical History bi-polar Medical History hypertension Medical History hx of seizure x1, isolated Surgical History gallbladder 10/2013 Surgical History 03/2014 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
--- OUTSIDE RECORDS SUMMARY | 2017-12-25 20:10 | XMS REPORT ---
Author Author MARIANO REDDY Organization [facility] Address [address] [place] [address] Care Team Providers Care Car Examiner Name Role Phone MARIANO REDDY Unavailable PROBLEMS Type Condition ICD9-CM Code [id number] Code Onset Dates Condition Status SNOMED Code Problem Bipolar I disorder with depression F31.9 Active 20353911 Problem Amenorrhea N91.2 Active 18784626 Problem Social anxiety disorder F40.10 Active 09565216 Problem Obsessive-compulsive disorder, unspecified type F42.9 Active 087544658 Problem PTSD (post-traumatic stress disorder) F43.10 Active 16661007 Problem Mood disorder F39 Active 13833872 Problem 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 Active 92152089 ALLERGIES No Information ENCOUNTERS Encounter Location Date Diagnosis [place] [id number] [place] [address] 51386- 9278 Nov, [facility] [id number] [place] [address] 59337- 0726 Oct, PTSD (post-traumatic stress disorder) F43.10 and Bipolar I disorder with depression F31.9 [facility] [id number] [place] [address] 16633- 8270 Oct, [facility] [id number] [place] [address] 35973- 1508 Oct, PTSD (post-traumatic stress disorder) F43.10 and Bipolar I disorder with depression F31.9 [facility] [id number] [place] [address] 81680- 7872 Oct, [facility] [id number] [place] [address] 72214- 2120 Sep, Bipolar I disorder with depression F31.9 [facility] [address] [address] 1558 Sep, Bipolar I disorder with depression F31.9 ; PTSD (post- traumatic stress disorder) F43.10 ; 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 ; Social anxiety disorder F40.10 and BMI 50.0-59.9, adult Z68.43 [place] [address] [address] 8494 Sep, PTSD (post-traumatic stress disorder) F43.10 and Bipolar I disorder with depression F31.9 [place] [id number] [place] [address] 17399- 8490 Sep, PTSD (post-traumatic stress disorder) F43.10 and Bipolar I disorder with depression F31.9 [place] [id number] [address]- 3765 August, PTSD (post-traumatic stress disorder) F43.10 and Bipolar I disorder with depression F31.9 [place] [id number] [place] [address] 30837- 9198 August, Bipolar I disorder with depression F31.9 ; PTSD (post- traumatic stress disorder) F43.10 ; 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 ; Social anxiety disorder F40.10 and BMI 50.0-59.9, adult Z68.43 [place] [address] [address]- 5846 August, [place] [id number] [place] [address] 76221- 0662 August, Bipolar I disorder with depression F31.9 ; PTSD (post- traumatic stress disorder) F43.10 ; 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 ; Social anxiety disorder F40.10 and BMI 50.0-59.9, adult Z68.43 [place] [address] [address]- 9878 August, [place] [address] [id number] [place] [address] 20408- 4407 August, [facility] [id number] [place] [address] 90443- 6337 August, PTSD (post-traumatic stress disorder) F43.10 and Bipolar I disorder with depression F31.9 [facility] [id number] [place] [address] 43677- 0928 August, [facility] [id number] [place] [address] 64950- 7667 Jul, Bipolar I disorder with depression F31.9 ; PTSD (post- traumatic stress disorder) F43.10 ; 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 ; Social anxiety disorder F40.10 and BMI 50.0-59.9, adult Z68.43 [facility] [id number] [place] [address] 95477- 5001 18 Jul, 2017 PTSD (post-traumatic stress disorder) F43.10 and Bipolar I disorder with depression F31.9 [place] [id number] [place] [address] 23594- 7483 09 Jul, 2017 Pelvic pain R10.2 ; Amenorrhea N91.2 and BMI 50.0-59.9, adult Z68.43 [facility] [id number] [place] [address] 70177- 9710 26 Jun, 2017 BMI 50.0-59.9, adult Z68.43 ; Bipolar I disorder with depression F31.9 ; PTSD (post-traumatic stress disorder) F43.10 and 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 [facility] [id number] [place] [address] 97899 -6602 Jun, Other viral agents as the cause of diseases classified elsewhere B97.89 ; Other specified respiratory disorders J98.8 ; Bronchitis J40 and Cough R05 [facility] [id number] [place] [address] 13172- 6689 13 Jun, 2017 PTSD (post-traumatic stress disorder) F43.10 [place] [address] [address]- 7274 13 Jun, 2017 PTSD (post-traumatic stress disorder) F43.10 and Bipolar I disorder with depression F31.9 [facility] [address] [address]- 3367 13 May, 2017 PTSD (post-traumatic stress disorder) F43.10 and Bipolar I disorder with depression F31.9 [facility] [address] [id number] [place] [address] 72684- 7725 12 May, 2017 [place] [address] [address] [id number] [place] [address] 75378- 9756 07 May, 2017 PTSD (post-traumatic stress disorder) F43.10 and Bipolar I disorder with depression F31.9 [place] [id number] [place] [address] 44264- 2438 Apr, PTSD (post-traumatic stress disorder) F43.10 and Bipolar I disorder with depression F31.9 [place] [id number] [place] [address] 53839- 8507 Apr, PTSD (post-traumatic stress disorder) F43.10 and Bipolar I disorder with depression F31.9 [place] [address] [address]- 0699 18 Mar, 2017 PTSD (post-traumatic stress disorder) F43.10 ; Obsessive- compulsive disorder, unspecified type F42.9 ; Bipolar I disorder with depression F31.9 and 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 [facility] [address] [address]- 2433 Mar, PTSD (post-traumatic stress disorder) F43.10 and Bipolar I disorder with depression F31.9 [facility] [address] [address]- 8174 Feb, PTSD (post-traumatic stress disorder) F43.10 and Bipolar I disorder with depression F31.9 [place] [address] [address] [address]- 0844 Feb, PTSD (post-traumatic stress disorder) F43.10 and Bipolar I disorder with depression F31.9 [facility] [id number] [place] [address] 79367 -7263 Jan, Strep pharyngitis J02.0 [facility] [id number] [place] [address] 15014- 4656 Jan, [facility] [id number] [place] [address] 12405- 5032 Jan, [place] [address] [address] [id number] [place] [address] 31038- 7083 Jan, PTSD (post-traumatic stress disorder) F43.10 and Bipolar I disorder with depression F31.9 [place] [address] [address] [id number] [place] [address] 52740- 8413 Jan, PTSD (post-traumatic stress disorder) F43.10 and Bipolar I disorder with depression F31.9 [place] [address] [id number] [place] [address] 49272- 8215 Jan, 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 [place] [address] [id number] [place] [address] 60671- 5558 Jan, PTSD (post-traumatic stress disorder) F43.10 ; Obsessive- compulsive disorder, unspecified type F42.9 ; Bipolar I disorder with depression F31.9 and 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 [place] [id number] [place] [address] 86126- 5545 Dec, Encounter for IUD removal Z30.432 and control counseling Z30.09 [place] [address] [id number] [place] [address] 24728- 3396 Dec, PTSD (post-traumatic stress disorder) F43.10 ; Obsessive- compulsive disorder, unspecified type F42.9 and Bipolar I disorder with depression F31.9 [place] [address] [address]- 5427 25 Dec, 2016 PTSD (post-traumatic stress disorder) F43.10 and Bipolar I disorder with depression F31.9 [facility] [id number] [address]- 5164 12 Dec, 2016 PTSD (post-traumatic stress disorder) F43.10 and Bipolar I disorder with depression F31.9 [facility] [id number] [place] [address] 65445- 9312 11 Dec, 2016 Mood disorder F39 [facility] [id number] [place] [address] 92441- 3865 08 Dec, 2016 PTSD (post-traumatic stress disorder) F43.10 ; Mood disorder F39 and Obsessive-compulsive disorder, unspecified type F42.9 [facility] [address] [address]- 0859 07 Dec, 2016 PTSD (post-traumatic stress disorder) F43.10 and Bipolar I disorder with depression F31.9 [facility] [address] [address] -5653 05 Dec, 2016 Adverse drug reaction, initial encounter T88.7XXA [facility] [address] [address]- 0454 Dec, [facility] [address] [address]- 0790 Nov, PTSD (post-traumatic stress disorder) F43.10 and Bipolar I disorder with depression F31.9 [facility] [id number] [address]- 3284 Nov, PTSD (post-traumatic stress disorder) F43.10 ; Mood disorder F39 and Obsessive-compulsive disorder, unspecified type F42.9 [facility] [id number] [address]- 3038 Nov, PTSD (post-traumatic stress disorder) F43.10 and Bipolar I disorder with depression F31.9 [facility] [id number] [address]- 3564 Nov, PTSD (post-traumatic stress disorder) F43.10 and Bipolar I disorder with depression F31.9 [facility] [address] [facility] [id number] [address] Nov, [facility] [id number] [address]- 5857 Nov, PTSD (post-traumatic stress disorder) F43.10 and Bipolar I disorder with depression F31.9 [facility] [id number] [address]- 3486 Nov, PTSD (post-traumatic stress disorder) F43.10 and Bipolar I disorder with depression F31.9 [facility] [id number] [address]- 9788 Oct, [facility] [address] [address]- 3773 Oct, PTSD (post-traumatic stress disorder) F43.10 ; Mood disorder F39 and Obsessive-compulsive disorder, unspecified type F42.9 [facility] [address] [address]- 3987 Oct, PTSD (post-traumatic stress disorder) F43.10 and Bipolar I disorder with depression F31.9 [facility] [id number] [address]- 6990 Oct, PTSD (post-traumatic stress disorder) F43.10 and Bipolar I disorder with depression F31.9 [facility] [id number] [address]- 1039 Oct, PTSD (post-traumatic stress disorder) F43.10 ; Mood disorder F39 and Obsessive-compulsive disorder, unspecified type F42.9 [facility] [id number] [address]- 4001 Oct, [facility] [address] [address]- 8511 Oct, PTSD (post-traumatic stress disorder) F43.10 and Bipolar I disorder with depression F31.9 [facility] [id number] [place] [address] 29889- 5349 Oct, PTSD (post-traumatic stress disorder) F43.10 ; Mood disorder F39 and Obsessive-compulsive disorder, unspecified type F42.9 [place] [address] [id number] [place] [address] 16162- 0032 Sep, PTSD (post-traumatic stress disorder) F43.10 and Bipolar I disorder with depression F31.9 [place] [address] [id number] [place] [address] 60372- 0586 Sep, PTSD (post-traumatic stress disorder) F43.10 ; Mood disorder F39 and Obsessive-compulsive disorder, unspecified type F42.9 [place] [address] [id number] [place] [address] 80634- 5754 Sep, PTSD (post-traumatic stress disorder) F43.10 and Bipolar I disorder with depression F31.9 [place] [address] [id number] [place] [address] 39566- 6377 Sep, PTSD (post-traumatic stress disorder) F43.10 and Bipolar I disorder with depression F31.9 [place] [id number] [place] [address] 89505- 1972 August, PTSD (post-traumatic stress disorder) F43.10 and Bipolar I disorder with depression F31.9 [facility] [id number] [place] [address] 79805 -5824 August, Pharyngitis due to other organism J02.8 [facility] [address] [id number] [place] [address] 07948- 9234 August, PTSD (post-traumatic stress disorder) F43.10 ; Bipolar 1 disorder, mixed F31.60 and 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 [facility] [address] [address]- 1885 August, PTSD (post-traumatic stress disorder) F43.10 and Bipolar I disorder with depression F31.9 [facility] [address] [address]- 1946 Jul, PTSD (post-traumatic stress disorder) F43.10 and Bipolar I disorder with depression F31.9 [facility] [address] [address]- 1481 Jul, PTSD (post-traumatic stress disorder) F43.10 and Bipolar I disorder with depression F31.9 [facility] [address] [address]- 2596 Jul, PTSD (post-traumatic stress disorder) F43.10 and Bipolar I disorder with depression F31.9 [place] [address] [address]- 8016 Jul, 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 [facility] [address] [address]- 8716 Jun, PTSD (post-traumatic stress disorder) F43.10 and Bipolar I disorder with depression F31.9 [facility] [address] [address]- 8345 Jun, Bipolar 1 disorder, mixed F31.60 ; PTSD (post-traumatic stress disorder) F43.10 and 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 [facility] [address] [address]- 7505 Jun, PTSD (post-traumatic stress disorder) F43.10 and Depression , unspecified depression type F32.9 [facility] [address] [id number] [address]- 4046 14 Jun, 2016 PTSD (post-traumatic stress disorder) F43.10 and Depression , unspecified depression type F32.9 [facility] [id number] [place] [address] 15940- 5748 Jun, PTSD (post-traumatic stress disorder) F43.10 and Depression , unspecified depression type F32.9 [facility] [id number] [place] [address] 14965 -0392 May, Fever, unspecified fever cause R50.9 and Gastroenteritis K52.9 [place] [address] 15936- 1065 Mar, Sprain of other ligament of right ankle, subsequent encounter S93.491D [place] [address] 08290- 9359 Mar, [facility] [place] [address] 06499 -6891 Feb, Scabies infestation B86 [place] [address] 77869- 1329 Feb, Dental caries K02.9 [place] [address] 33994- 5858 Jan, [facility] [place] [address] 42492 -8982 Jan, Pharyngitis, unspecified etiology J02.9 [place] [address] [place] [id number] [place] [address] 83017- 5804 Jan, [place] [address] 23594- 0480 Jan, Bipolar affective disorder, remission status unspecified F31.9 [place] [address] 36245- 8983 Jan, Encounter for dental examination and cleaning without abnormal findings Z01.20 [place] [address] [place] [id number] [place] [address] 86708- 7171 Jan, Bipolar affective disorder, remission status unspecified F31.9 [place] [address] [place] [id number] [place] [address] 45999- 1301 29 Dec, 2015 Bipolar affective disorder, remission status unspecified F31.9 and Depression, unspecified depression type F32.9 [place] [address] [place] [id number] [place] [address] 52104- 3624 12 Dec, 2015 Unspecified mood [affective] disorder F39 and Generalized anxiety disorder F41.1 [place] [address] 57633- 5234 08 Dec, 2015 Depression, unspecified depression type F32.9 [place] [address] 61595- 1472 Nov, Dental caries K02.9 [place] [address] 53118- 8296 Nov, Dental examination Z01.20 [place] [address] 49475- 2726 Sep, Bipolar affective disorder, remission status unspecified F31.9 [place] [address] 20254- 2662 August, Tension headache G44.209 [facility] [place] [address] [id number] [place] [address] 80887 -1435 Jul, [facility] [address] 17515 -6516 Jul, Upper respiratory infection J06.9 and Gastroenteritis K52.9 [place] [address] [place] [id number] [place] [address] 87599- 8335 Jun, Bronchitis J40 [facility] [address] 08910 -3756 Feb, Thoracic back pain M54.6 and Left shoulder pain M25.512 [place] [address] 42970- 0040 Feb, [facility] [place] [facility] [address] [id number] [place] [address]- 3313 14 Jul, 2014 [facility] [place] [facility] [address] [id number] [place] [address]- 8564 13 Jul, 2014 [facility] [place] [facility] [address] [id number] [place] [address]- 1450 Apr, [facility] [place] [facility] [address] [id number] [place] [address]- 2133 Apr, [facility] [place] [facility] [address] [id number] [place] [address]- 6344 Apr, [facility] [place] [facility] [address] [id number] [place] [address]- 9800 Apr, [facility] [place] [facility] [address] [id number] [place] [address]- 0309 Mar, [facility] [place] [facility] [address] [id number] [place] [address]- 1182 Mar, [facility] [place] [facility] [address] [id number] [place] [address]- 1495 Mar, [facility] [place] [facility] [address] [id number] [place] [address]- 9209 Mar, [facility] [place] [facility] [address] [id number] [place] [address]- 8815 Feb, [facility] [place] [facility] [address] [id number] [place] [address]- 0967 Feb, [facility] [place] [facility] [address] [id number] [place] [address]- 6469 Feb, [facility] [place] [facility] [address] [id number] [place] 7133 Feb, [facility] [place] [facility] [address] [id number] [place] [address]- 4942 15 Jan, 2014 [facility] [place] [facility] [address] [id number] [place] [address]- 5245 15 Jan, 2014 [facility] [place] [facility] [address] [id number] [place] [address]- 2973 14 Jan, 2014 [facility] [place] [facility] [address] [id number] [place] [address]- 2672 14 Jan, 2014 [facility] [place] [facility] [address] [id number] [place] [address]- 2802 13 Jan, 2014 [facility] [place] [facility] [address] [id number] [place] [address]- 9011 Jan, [facility] [place] [facility] [address] [id number] [place] [address]- 6772 Dec, [facility] [place] [facility] [address] [id number] [place] [address]- 3838 Dec, [facility] [place] [facility] [address] [id number] [place] [address]- 7273 Nov, [facility] [place] [facility] [address] [id number] [place] [address]- 2921 Nov, [facility] [place] [facility] [address] [id number] [place] [address]- 5856 Nov, [facility] [place] [facility] [address] [id number] [place] [address]- 9476 Nov, [facility] [place] [facility] [address] [id number] [place] [address]- 9484 Nov, [facility] [place] [facility] [address] [id number] [address]- 8349 Nov, [facility] [place] [facility] [address] [id number] [place] [address]- 5371 Nov, [facility] [place] [facility] [address] [id number] [place] [address]- 4665 Nov, [facility] [place] [facility] [address] [id number] [place] [address]- 9872 Nov, [facility] [place] [facility] [address] [id number] [place] [address]- 5240 Oct, 2013 [facility] [place] [facility] [address] [id number] [place] [address]- 7237 Oct, 2013 [facility] [place] [facility] [address] [id number] [place] [address]- 4123 Oct, 2013 [facility] [place] [facility] [address] [id number] [place] [address]- 4154 Oct, 2013 [facility] [place] [facility] [address] [id number] [place] [address]- 0411 Oct, 2013 [facility] [place] [facility] [address] [id number] [place] [address]- 5941 Oct, 2013 [facility] [place] [facility] [address] [id number] [place] [address]- 9970 Oct, 2013 [facility] [place] [facility] [address] [id number] [place] [address]- 7405 Oct, 2013 [facility] [place] [facility] [address] [id number] [place] [address]- 4713 15 Oct, 2013 [facility] [place] [facility] [address] [id number] [place] [address]- 6793 Oct, 2013 [facility] [place] [facility] [address] [id number] [place] [address]- 8887 Oct, 2013 [facility] [place] [facility] [address] [id number] [place] [address] Oct, 2013 [facility] [place] [facility] [address] [id number] [place] [address] 05 Oct, 2013 [facility] [place] [facility] [address] [id number] [place] [address] Oct, [facility] [place] [facility] [address] [id number] [place] [address] Oct, 2013 [facility] [place] [facility] [address] [id number] [place] [address] Oct, [facility] [place] [facility] [address] [id number] [place] [address] Oct, [facility] [place] [facility] [address] [id number] [place] [address] Oct, [facility] [place] [facility] [address] [id number] [place] [address] Oct, [facility] [place] [facility] [address] [id number] [place] [address] Sep, [facility] [place] [facility] [address] [id number] [place] [address] Sep, [facility] [place] [facility] [address] [id number] [place] [address] Sep, [facility] [place] [facility] [address] [id number] [place] [address] Sep, [facility] [place] [facility] [address] [id number] [place] [address] Feb, [facility] [place] [facility] [address] [id number] [place] [address] Feb, [facility] [place] [facility] [address] [id number] [place] [address] Dec, [facility] [place] [facility] [address] [id number] [place] [address] Dec, [facility] [place] [facility] [address] [id number] [place] [address] Nov, [facility] [place] [facility] [address] [id number] [place] [address] Nov, [facility] [place] [facility] [address] [id number] [place] [address] Nov, [facility] [place] [facility] [address] [id number] [place] [address] Nov, [facility] [place] [facility] [address] [id number] [place] [address] Nov, [facility] [place] [facility] [address] [id number] [place] [address] Nov, [facility] [place] [facility] [address] [id number] [place] [address] Oct, [facility] [place] [facility] [address] [id number] [place] [address] Apr, [facility] [place] [facility] [address] [id number] [place] [address] August, [facility] [place] [facility] [address] [id number] [place] [address] August, [facility] [place] [facility] [address] [id number] [place] [address] August, [facility] [place] [facility] [address] [id number] [place] [address] Jul, [facility] [place] [facility] [address] [id number] [place] [address] Jun, [facility] [place] [facility] [address] [id number] [place] [address] Jun, [facility] [place] [facility] [address] [id number] [place] [address] Jun, [facility] [place] [facility] [address] [id number] [place] [address] Jun, [facility] [place] [facility] [address] [id number] [place] [address] Jun, [facility] [place] [facility] [address] [id number] [place] [address] Jun, [facility] [place] [facility] [address] [id number] [place] [address] May, [facility] [place] [facility] [address] [id number] [place] [address] May, [facility] [place] [facility] [address] [id number] [place] [address] 09 May, 2011 [facility] [address] [id number] [place] [address] May, 2011 [facility] [place] [facility] [address] [id number] [place] [address] May, 2011 [facility] [place] [facility] [address] [id number] [place] [address] May, 2011 [facility] [place] [facility] [address] [id number] [place] [address] Apr, [facility] [place] [facility] [address] [id number] [place] [address] Mar, [facility] [address] [id number] [place] [address] Mar, [facility] [place] [facility] [address] [id number] [place] [address] Feb, [facility] [place] [facility] [address] [id number] [place] [address] Jan, [facility] [place] [facility] [address] [id number] [place] [address] 31 Mar, 2009 [facility] [place] [facility] [address] [id number] [place] [address] 15 Mar, 2009 [facility] [place] [facility] [address] [id number] [place] [address] 10 Mar, 2009 [facility] [place] [facility] [address] [id number] [place] [address] 10 Mar, 2009 [facility] [place] [facility] [address] [id number] [place] [address] 02 Mar, 2009 [facility] [place] [facility] [address] [id number] [place] 16 Feb, 2009 [facility] [place] [facility] [address] [id number] [place] [address] Feb, [facility] [address] [facility] [id number] [place] [address] Nov, [facility] [address] [facility] [id number] [place] [address] May, IMMUNIZATIONS No Known Immunizations SOCIAL HISTORY Never Assessed REASON FOR VISIT work note PLAN OF CARE VITAL SIGNS MEDICATIONS Unknown Medications RESULTS No Results PROCEDURES No Known procedures INSTRUCTIONS MEDICATIONS ADMINISTERED No Known Medications MEDICAL (GENERAL) HISTORY Type Description Date Medical History HELP syndrome Medical History bi-polar Medical History hypertension Medical History hx of seizure x1, isolated Surgical History gallbladder 10/2013 Surgical History 03/2014 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
--- OUTSIDE RECORDS SUMMARY | 2017-12-25 20:10 | XMS REPORT ---
Author Author MARIANO REDDY Organization [facility] Address [address] [place] [address] Care Team Providers Care Financial Reporting Consultant Name Role Phone MARIANO REDDY Unavailable PROBLEMS Type Condition ICD9-CM Code [id number] Code Onset Dates Condition Status SNOMED Code Problem Bipolar I disorder with depression F31.9 Active 03261898 Problem Amenorrhea N91.2 Active 73078284 Problem Social anxiety disorder F40.10 Active 28506029 Problem Obsessive-compulsive disorder, unspecified type F42.9 Active 229863798 Problem PTSD (post-traumatic stress disorder) F43.10 Active 19270277 Problem Mood disorder F39 Active 33732966 Problem 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 Active 27287879 ALLERGIES No Information ENCOUNTERS Encounter Location Date Diagnosis [facility] [id number] [place] [address] 25839- 8550 Nov, [facility] [address] 05599- 5382 Nov, [facility] [id number] [place] [address] 40303- 8803 Oct, PTSD (post-traumatic stress disorder) F43.10 and Bipolar I disorder with depression F31.9 [facility] [id number] [place] [address] 42380- 3481 Oct, [facility] [id number] [place] [address] 94146- 3259 Oct, PTSD (post-traumatic stress disorder) F43.10 and Bipolar I disorder with depression F31.9 [facility] [id number] [place] [address] 38148- 9704 Oct, [facility] [id number] [address] 6573 Sep, Bipolar I disorder with depression F31.9 [place] [id number] [place] [address] 69260- 8202 Sep, Bipolar I disorder with depression F31.9 ; PTSD (post- traumatic stress disorder) F43.10 ; 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 ; Social anxiety disorder F40.10 and BMI 50.0-59.9, adult Z68.43 [place] [id number] [place] [address] 84900- 3013 Sep, PTSD (post-traumatic stress disorder) F43.10 and Bipolar I disorder with depression F31.9 [place] [id number] [place] [address] 12543- 3847 Sep, PTSD (post-traumatic stress disorder) F43.10 and Bipolar I disorder with depression F31.9 [place] [id number] [place] [address] 31104- 0625 August, PTSD (post-traumatic stress disorder) F43.10 and Bipolar I disorder with depression F31.9 [place] [id number] [place] [address] 73247- 8848 August, Bipolar I disorder with depression F31.9 ; PTSD (post- traumatic stress disorder) F43.10 ; 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 ; Social anxiety disorder F40.10 and BMI 50.0-59.9, adult Z68.43 [place] [id number] [place] [address] 04927- 0136 August, [place] [id number] [place] [address] 75520- 0813 August, Bipolar I disorder with depression F31.9 ; PTSD (post- traumatic stress disorder) F43.10 ; 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 ; Social anxiety disorder F40.10 and BMI 50.0-59.9, adult Z68.43 [place] [id number] [place] [address] 82567- 2689 August, [place] [id number] [place] [address] 27228- 0895 August, [place] [id number] [place] [address] 68915- 5318 August, PTSD (post-traumatic stress disorder) F43.10 and Bipolar I disorder with depression F31.9 [place] [id number] [place] [address] 86907- 1757 August, [place] [address] 93055- 0769 Jul, Bipolar I disorder with depression F31.9 ; PTSD (post- traumatic stress disorder) F43.10 ; 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 ; Social anxiety disorder F40.10 and BMI 50.0-59.9, adult Z68.43 [place] [id number] [place] [address] 30108- 8535 Jul, PTSD (post-traumatic stress disorder) F43.10 and Bipolar I disorder with depression F31.9 [place] [id number] [place] [address] 68426- 0616 Jul, Pelvic pain R10.2 ; Amenorrhea N91.2 and BMI 50.0-59.9, adult Z68.43 [place] [id number] [place] [address] 37045- 8889 Jun, BMI 50.0-59.9, adult Z68.43 ; Bipolar I disorder with depression F31.9 ; PTSD (post-traumatic stress disorder) F43.10 and 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 [facility] [id number] [place] [address] 02643 -5652 Jun, Other viral agents as the cause of diseases classified elsewhere B97.89 ; Other specified respiratory disorders J98.8 ; Bronchitis J40 and Cough R05 [place] [id number] [place] [address] 10901- 8895 Jun, PTSD (post-traumatic stress disorder) F43.10 [facility] [id number] [place] [address] 80336- 8388 Jun, PTSD (post-traumatic stress disorder) F43.10 and Bipolar I disorder with depression F31.9 [facility] [id number] [place] [address] 93814- 3166 13 May, 2017 PTSD (post-traumatic stress disorder) F43.10 and Bipolar I disorder with depression F31.9 [facility] [id number] [place] [address] 22618- 8956 12 May, 2017 [facility] [id number] [place] [address] 96658- 4684 May, PTSD (post-traumatic stress disorder) F43.10 and Bipolar I disorder with depression F31.9 [facility] [id number] [place] [address] 32440- 9412 Apr, PTSD (post-traumatic stress disorder) F43.10 and Bipolar I disorder with depression F31.9 [place] [id number] [place] [address] 85578- 9004 Apr, PTSD (post-traumatic stress disorder) F43.10 and Bipolar I disorder with depression F31.9 [facility] [id number] [place] [address] 73156- 5167 Mar, PTSD (post-traumatic stress disorder) F43.10 ; Obsessive- compulsive disorder, unspecified type F42.9 ; Bipolar I disorder with depression F31.9 and Other chcf (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.899 [facility] [id number] [place] [address] 99029- 0170 Mar, PTSD (post-traumatic stress disorder) F43.10 and Bipolar I disorder with depression F31.9 [facility] [id number] [place] [address] 22237- 9780 Feb, PTSD (post-traumatic stress disorder) F43.10 and Bipolar I disorder with depression F31.9 [facility] [address] [address]- 6411 Feb, PTSD (post-traumatic stress disorder) F43.10 and Bipolar I disorder with depression F31.9 [facility] [address] [address] Jan, Strep pharyngitis J02.0 [facility] [id number] [place] [address] 00315- 5630 Jan, [facility] [id number] [place] [address] 11810- 8566 Jan, [facility] [id number] [place] [address] 87015- 8203 Jan, PTSD (post-traumatic stress disorder) F43.10 and Bipolar I disorder with depression F31.9 [facility] [id number] [place] [address] 49358- 3146 Jan, PTSD (post-traumatic stress disorder) F43.10 and Bipolar I disorder with depression F31.9 [facility] [id number] [place] [address] 52901- 2764 Jan, Other manager long term care (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.899 [place] [id number] [place] [address] 31382- 5047 Jan, PTSD (post-traumatic stress disorder) F43.10 ; Obsessive- compulsive disorder, unspecified type F42.9 ; Bipolar I disorder with depression F31.9 and Other manager long term care (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.899 [facility] [id number] [place] [address] 46335- 7014 Dec, Encounter for IUD removal Z30.432 and control counseling Z30.09 [facility] [address] [address]- 5566 Dec, PTSD (post-traumatic stress disorder) F43.10 ; Obsessive- compulsive disorder, unspecified type F42.9 and Bipolar I disorder with depression F31.9 [facility] [id number] [place] [address] 44062- 4722 25 Dec, 2016 PTSD (post-traumatic stress disorder) F43.10 and Bipolar I disorder with depression F31.9 [facility] [address] [address]- 2950 Dec, PTSD (post-traumatic stress disorder) F43.10 and Bipolar I disorder with depression F31.9 [facility] [id number] [place] [address] 02583- 4887 11 Dec, 2016 Mood disorder F39 [facility] [id number] [place] [address] 58855- 8602 08 Dec, 2016 PTSD (post-traumatic stress disorder) F43.10 ; Mood disorder F39 and Obsessive-compulsive disorder, unspecified type F42.9 [facility] [id number] [place] [address] 78817- 2814 Dec, PTSD (post-traumatic stress disorder) F43.10 and Bipolar I disorder with depression F31.9 [facility] [id number] [place] [address] 91869 -5081 Dec, Adverse drug reaction, initial encounter T88.7XXA [facility] [id number] [place] [address] 90966- 0987 Dec, [facility] [id number] [place] [address] 02911- 3130 Nov, PTSD (post-traumatic stress disorder) F43.10 and Bipolar I disorder with depression F31.9 [facility] [id number] [place] [address] 91308- 6053 Nov, PTSD (post-traumatic stress disorder) F43.10 ; Mood disorder F39 and Obsessive-compulsive disorder, unspecified type F42.9 [facility] [id number] [place] [address] 32074- 6440 Nov, PTSD (post-traumatic stress disorder) F43.10 and Bipolar I disorder with depression F31.9 [facility] [address] [address]- 4634 Nov, PTSD (post-traumatic stress disorder) F43.10 and Bipolar I disorder with depression F31.9 [facility] [address] [address] -1687 Nov, [facility] [id number] [address]- 1168 Nov, PTSD (post-traumatic stress disorder) F43.10 and Bipolar I disorder with depression F31.9 [facility] [address] [address]- 1038 Nov, PTSD (post-traumatic stress disorder) F43.10 and Bipolar I disorder with depression F31.9 [facility] [address] [address]- 5648 Oct, [facility] [address] [address]- 9710 Oct, PTSD (post-traumatic stress disorder) F43.10 ; Mood disorder F39 and Obsessive-compulsive disorder, unspecified type F42.9 [facility] [address] [address]- 5774 Oct, PTSD (post-traumatic stress disorder) F43.10 and Bipolar I disorder with depression F31.9 [facility] [id number] [address]- 0122 Oct, PTSD (post-traumatic stress disorder) F43.10 and Bipolar I disorder with depression F31.9 [facility] [address] [address]- 0960 Oct, PTSD (post-traumatic stress disorder) F43.10 ; Mood disorder F39 and Obsessive-compulsive disorder, unspecified type F42.9 [facility] [address] [address]- 9638 Oct, [facility] [id number] [place] [address] 18089- 6048 Oct, PTSD (post-traumatic stress disorder) F43.10 and Bipolar I disorder with depression F31.9 [facility] [id number] [address]- 9261 Oct, PTSD (post-traumatic stress disorder) F43.10 ; Mood disorder F39 and Obsessive-compulsive disorder, unspecified type F42.9 [place] [id number] [place] [address] 58241- 9885 Sep, PTSD (post-traumatic stress disorder) F43.10 and Bipolar I disorder with depression F31.9 [place] [id number] [place] [address] 02009- 7098 Sep, PTSD (post-traumatic stress disorder) F43.10 ; Mood disorder F39 and Obsessive-compulsive disorder, unspecified type F42.9 [place] [id number] [place] [address] 57809- 8883 Sep, PTSD (post-traumatic stress disorder) F43.10 and Bipolar I disorder with depression F31.9 [place] [address] [address]- 1633 Sep, PTSD (post-traumatic stress disorder) F43.10 and Bipolar I disorder with depression F31.9 [facility] [address] [address]- 8057 August, PTSD (post-traumatic stress disorder) F43.10 and Bipolar I disorder with depression F31.9 [facility] [id number] [place] [address] 61007 -4653 August, Pharyngitis due to other organism J02.8 [facility] [address] [address]- 0996 August, PTSD (post-traumatic stress disorder) F43.10 ; Bipolar 1 disorder, mixed F31.60 and Other chcf (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.899 [facility] [id number] [place] [address] 88951- 9046 August, PTSD (post-traumatic stress disorder) F43.10 and Bipolar I disorder with depression F31.9 [facility] [id number] [place] [address] 99127- 2586 Jul, PTSD (post-traumatic stress disorder) F43.10 and Bipolar I disorder with depression F31.9 [facility] [id number] [place] [address] 63659- 0926 Jul, PTSD (post-traumatic stress disorder) F43.10 and Bipolar I disorder with depression F31.9 [facility] [id number] [place] [address] 23818- 6203 Jul, PTSD (post-traumatic stress disorder) F43.10 and Bipolar I disorder with depression F31.9 [facility] [id number] [place] [address] 16736- 0922 Jul, Other chcf (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.899 [facility] [id number] [place] [address] 99302- 8893 Jun, PTSD (post-traumatic stress disorder) F43.10 and Bipolar I disorder with depression F31.9 [facility] [id number] [place] [address] 64519- 7986 Jun, Bipolar 1 disorder, mixed F31.60 ; PTSD (post-traumatic stress disorder) F43.10 and Other manager long term care (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.899 [facility] [id number] [place] [address] 60312- 0210 Jun, PTSD (post-traumatic stress disorder) F43.10 and Depression , unspecified depression type F32.9 [facility] [id number] [place] [address] 23126- 8756 Jun, PTSD (post-traumatic stress disorder) F43.10 and Depression , unspecified depression type F32.9 [place] [address] 56270- 6988 Jun, PTSD (post-traumatic stress disorder) F43.10 and Depression , unspecified depression type F32.9 [facility] [address] 48578 -7238 May, Fever, unspecified fever cause R50.9 and Gastroenteritis K52.9 [place] [address] 77159- 1164 Mar, Sprain of other ligament of right ankle, subsequent encounter S93.491D [place] [address] 56611- 1005 Mar, [facility] W[facility] IN [place] [address] 36372 -6519 Feb, Scabies infestation B86 [place] [address] 85783- 6379 Feb, Dental caries K02.9 [place] [address] 68792- 0330 Jan, [facility] [place] [address] 90699 -1274 Jan, Pharyngitis, unspecified etiology J02.9 [place] [address] 94873- 2469 Jan, [place] [address] 84183- 0286 Jan, Bipolar affective disorder, remission status unspecified F31.9 [place] [address] 34789- 6490 Jan, Encounter for dental examination and cleaning without abnormal findings Z01.20 [place] [address] [place] [address]- 0833 Jan, Bipolar affective disorder, remission status unspecified F31.9 [place] [id number] [place] [address] 99293- 9711 29 Dec, 2015 Bipolar affective disorder, remission status unspecified F31.9 and Depression, unspecified depression type F32.9 [place] [id number] [place] [address] 72629- 7120 Dec, Unspecified mood [affective] disorder F39 and Generalized anxiety disorder F41.1 [place] [address] 22724- 6359 08 Dec, 2015 Depression, unspecified depression type F32.9 [place] [id number] [place] [address] 26394- 5911 Nov, Dental caries K02.9 [place] [address] 13017- 8330 Nov, Dental examination Z01.20 [place] [address] 41863- 1020 Sep, Bipolar affective disorder, remission status unspecified F31.9 [place] [id number] [place] [address] 06703- 6739 August, Tension headache G44.209 [facility] [id number] [place] [address] 36850 -0055 Jul, [facility] [id number] [place] [address] 93541 -0854 Jul, Upper respiratory infection J06.9 and Gastroenteritis K52.9 [place] [address] 12202- 3552 Jun, Bronchitis J40 [facility] [id number] [place] [address] 78739 -6595 05 Feb, 2015 Thoracic back pain M54.6 and Left shoulder pain M25.512 [facility] [place] [facility] [address] [id number] [place] [address]- 4294 05 Feb, 2015 [facility] [place] [facility] [address] [id number] [place] [address]- 3457 14 Jul, 2014 [facility] [place] [facility] [address] [id number] [place] [address]- 6818 Jul, [facility] [place] [facility] [address] [id number] [place] [address]- 1048 Apr, [facility] [place] [facility] [address] [id number] [place] [address]- 1729 Apr, [facility] [place] [facility] [address] [id number] [place] [address]- 5228 Apr, [facility] [place] [facility] [address] [id number] [place] [address]- 4938 Apr, [facility] [place] [facility] [address] [id number] [place] [address]- 5070 Mar, [facility] [place] [facility] [address] [id number] [place] [address]- 9534 Mar, [facility] [place] [facility] [address] [id number] [place] [address]- 0085 Mar, [facility] [place] [facility] [address] [id number] [place] 9684 Mar, [facility] [place] [facility] [address] [id number] [place] [address]- 8928 Feb, [facility] [place] [facility] [address] [id number] [place] [address]- 1059 Feb, [facility] [place] [facility] [address] [id number] [place] [address]- 8353 Feb, [facility] [place] [facility] [address] [id number] [place] [address]- 9161 Feb, [facility] [place] [facility] [address] [id number] [place] [address]- 9956 15 Jan, 2014 [facility] [place] [facility] [address] [id number] [place] [address]- 5580 15 Jan, 2014 [facility] [place] [facility] [address] [id number] [place] [address]- 0788 14 Jan, 2014 [facility] [place] [facility] [address] [id number] [place] [address]- 0322 14 Jan, 2014 [facility] [place] [facility] [address] [id number] [place] [address]- 6008 Jan, [facility] [place] [facility] [address] [id number] [place] [address]- 9826 Jan, [facility] [place] [facility] [address] [id number] [place] [address]- 8247 15 Dec, 2013 [facility] [place] [facility] [address] [id number] [place] [address]- 8446 Dec, [facility] [place] [facility] [address] [id number] [place] [address]- 8154 Nov, [facility] [place] [facility] [address] [id number] [place] [address]- 5530 Nov, [facility] [place] [facility] [address] [id number] [place] [address]- 7116 Nov, [facility] [place] [facility] [address] [id number] [place] [address]- 1356 Nov, [facility] [place] [facility] [address] [id number] [address]- 1740 Nov, [facility] [place] [facility] [address] [id number] [place] [address]- 6444 Nov, [facility] [place] [facility] [address] [id number] [place] [address]- 5861 Nov, [facility] [place] [facility] [address] [id number] [place] [address]- 9830 Nov, [facility] [place] [facility] [address] [id number] [place] [address]- 9578 Nov, [facility] [place] [facility] [address] [id number] [place] [address]- 9667 Oct, [facility] [place] [facility] [address] [id number] [place] [address]- 9739 Oct, [facility] [place] [facility] [address] [id number] [place] [address]- 9460 Oct, [facility] [place] [facility] [address] [id number] [place] [address]- 1645 Oct, [facility] [place] [facility] [address] [id number] [place] [address]- 5124 Oct, [facility] [place] [facility] [address] [id number] [place] [address]- 3771 Oct, [facility] [place] [facility] [address] [id number] [place] [address] Oct, [facility] [place] [facility] [address] [id number] [place] [address] Oct, [facility] [place] [facility] [address] [id number] [place] [address] Oct, [facility] [place] [facility] [address] [id number] [place] [address] Oct, [facility] [place] [facility] [address] [id number] [place] [address] Oct, [facility] [place] [facility] [address] [id number] [place] [address] Oct, [facility] [place] [facility] [address] [id number] [place] [address] Oct, [facility] [place] [facility] [address] [id number] [place] [address] Oct, [facility] [place] [facility] [address] [id number] [place] [address] Oct, 2013 [facility] [place] [facility] [address] [id number] [place] [address] Oct, 2013 [facility] [place] [facility] [address] [id number] [place] [address] Oct, [facility] [place] [facility] [address] [id number] [place] [address] Oct, [facility] [place] [facility] [address] [id number] [place] [address] Oct, [facility] [place] [facility] [address] [id number] [place] [place] [address] Sep, [facility] [place] [facility] [address] [id number] [place] [address] Sep, [facility] [place] [facility] [address] [id number] [place] [address] Sep, [facility] [place] [facility] [address] [id number] [place] [address] Sep, [facility] [place] [facility] [address] [id number] [place] [address] Feb, [facility] [place] [facility] [address] [id number] [place] [address] Feb, [facility] [place] [facility] [address] [id number] [place] [address] Dec, [facility] [place] [facility] [address] [id number] [place] [address] Dec, [facility] [place] [facility] [address] [id number] [place] [address] Nov, [facility] [place] [facility] [address] [id number] [place] [address] Nov, [facility] [place] [facility] [address] [id number] [place] [address] Nov, [facility] [place] [facility] [address] [id number] [place] [address] Nov, [facility] [address] [id number] [place] [address] Nov, [facility] [place] [facility] [address] [id number] [place] [address] Nov, [facility] [place] [facility] [address] [id number] [place] [address] Oct, [facility] [place] [facility] [address] [id number] [place] [address] Apr, [facility] [place] [facility] [address] [id number] [place] [address] August, [facility] [place] [facility] [address] [id number] [place] [address] August, [facility] [place] [facility] [address] [id number] [place] [address] August, [facility] [place] [facility] [address] [id number] [place] [address] Jul, [facility] [place] [facility] [address] [id number] [place] [address] Jun, [facility] [place] [facility] [address] [id number] [place] [address] Jun, [facility] [place] [facility] [address] [id number] [place] [address] Jun, [facility] [place] [facility] [address] [id number] [place] [address] Jun, [facility] [place] [facility] [address] [id number] [place] [address] Jun, [facility] [place] [facility] [address] [id number] [place] [address] Jun, [facility] [place] [facility] [address] [id number] [place] [address] May, [facility] [place] [facility] [address] [id number] [place] [address] 16 May, 2011 [facility] [address] [id number] [place] [address] 09 May, 2011 [facility] [place] [facility] [address] [id number] [place] [address] 07 May, 2011 [facility] [place] [facility] [address] [id number] [place] [address] 06 May, 2011 [facility] [place] [facility] [address] [id number] [place] [address] 06 May, 2011 [facility] [address] [id number] [place] [address] Apr, [facility] [address] [id number] [place] [address] 07 Mar, 2011 [facility] [address] [id number] [place] [address] 06 Mar, 2011 [facility] [address] [id number] [place] [address] Feb, [facility] [address] [facility] [id number] [place] [address] 13 Jan, 2011 [facility] [address] [facility] [id number] [place] [address] 31 Mar, 2009 [facility] [place] [facility] [address] [id number] [place] [address] 15 Mar, 2009 [facility] [place] [facility] [address] [id number] [place] [address] 2546 10 Mar, 2009 [facility] [place] [facility] [address] [id number] [place] [address] 2546 10 Mar, 2009 [facility] [place] [facility] [address] [id number] [place] [address] 2546 02 Mar, 2009 [facility] [place] [facility] [address] [id number] [place] [address] Feb, [facility] [address] [facility] [id number] [place] [address] Feb, [facility] [address] [facility] [id number] [place] [address] Nov, [facility] [address] [facility] [id number] [place] [address] May, IMMUNIZATIONS No Known Immunizations SOCIAL HISTORY Never Assessed REASON FOR VISIT f/u PLAN OF CARE Activity Details Follow Up 4 Weeks, prn Reason: VITAL SIGNS Height 64 in 2017-08-25 Weight 296 lbs 2017-08-25 Heart Rate 80 bpm 2017-08-25 BMI 50.80 kg/m2 2017-08-25 Blood pressure systolic 138 mmHg 2017-08-25 Blood pressure diastolic 88 mmHg 2017-08-25 MEDICATIONS Medication Instructions Dosage Frequency Start Date End Date Duration Status Naprosyn 500 mg Orally every 12 hrs 1 tablet with food or milk as needed 12h August, Active Valium 2 MG Orally Twice a day prn 1 tablet August, 30 days Active Sprintec 28 0.25-35 MG-MCG Orally Once a day 1 tablet 24h Dec, 30 day(s) Active Latuda 120 MG Orally Once a day at supper with food 1 tablet 30 days Active RESULTS No Results PROCEDURES No Known procedures INSTRUCTIONS MEDICATIONS ADMINISTERED No Known Medications MEDICAL (GENERAL) HISTORY Type Description Date Medical History HELP syndrome Medical History bi-polar Medical History hypertension Medical History hx of seizure x1, isolated Surgical History gallbladder 10/2013 Surgical History 03/2014 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
--- OUTSIDE RECORDS SUMMARY | 2017-12-25 20:11 | XMS REPORT ---
Author Author OLY DURBIN [facility] Address [address] [place] [address] Care Team Providers Care Showcase Maker Name Role Phone OLY DURBIN Unavailable PROBLEMS Type Condition ICD9-CM Code WSX21-LD Code Onset Dates Condition Status SNOMED Code Problem Bipolar I disorder with depression F31.9 Active 64643630 Problem Amenorrhea N91.2 Active 15426864 Problem Social anxiety disorder F40.10 Active 94237153 Problem Obsessive-compulsive disorder, unspecified type F42.9 Active 657872441 Problem PTSD (post-traumatic stress disorder) F43.10 Active 64250042 Problem Mood disorder F39 Active 98694987 Problem 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 Active 53636850 ALLERGIES No Information ENCOUNTERS Encounter Location Date Diagnosis [facility] [id number] [place] [address] 62938- 7122 Nov, [facility] [address] 68999- 6251 Nov, [facility] [id number] [place] [address] 02579- 4066 Oct, PTSD (post-traumatic stress disorder) F43.10 and Bipolar I disorder with depression F31.9 [facility] [id number] [place] [address] 74647- 4757 Oct, [facility] [id number] [place] [address] 32418- 2405 Oct, PTSD (post-traumatic stress disorder) F43.10 and Bipolar I disorder with depression F31.9 [facility] [id number] [place] [address] 87118- 5315 Oct, [facility] [id number] [place] [address] 27754- 7031 Sep, Bipolar I disorder with depression F31.9 [place] [address] [place] [address] 12235- 5898 Sep, Bipolar I disorder with depression F31.9 ; PTSD (post- traumatic stress disorder) F43.10 ; 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 ; Social anxiety disorder F40.10 and BMI 50.0-59.9, adult Z68.43 [place] [id number] [place] [address] 76001- 1967 Sep, PTSD (post-traumatic stress disorder) F43.10 and Bipolar I disorder with depression F31.9 [place] [id number] [place] [address] 70334- 0232 Sep, PTSD (post-traumatic stress disorder) F43.10 and Bipolar I disorder with depression F31.9 [place] [id number] [place] [address] 30890- 0750 August, PTSD (post-traumatic stress disorder) F43.10 and Bipolar I disorder with depression F31.9 [place] [address] [place] [address] 97100- 8486 August, Bipolar I disorder with depression F31.9 ; PTSD (post- traumatic stress disorder) F43.10 ; 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 ; Social anxiety disorder F40.10 and BMI 50.0-59.9, adult Z68.43 [place] [address] [place] [address] 67450- 7433 August, [place] [address] [address]- 4584 August, Bipolar I disorder with depression F31.9 ; PTSD (post- traumatic stress disorder) F43.10 ; 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 ; Social anxiety disorder F40.10 and BMI 50.0-59.9, adult Z68.43 [place] [address] [place] [address] 37385- 6779 August, [facility] [id number] [place] [address] 62219- 1057 August, [place] [id number] [place] [address] 82224- 8649 August, PTSD (post-traumatic stress disorder) F43.10 and Bipolar I disorder with depression F31.9 [facility] [id number] [place] [address] 46681- 5849 August, [place] [id number] [place] [address] 60564- 5322 Jul, Bipolar I disorder with depression F31.9 ; PTSD (post- traumatic stress disorder) F43.10 ; 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 ; Social anxiety disorder F40.10 and BMI 50.0-59.9, adult Z68.43 [place] [id number] [place] [address] 29051- 5648 Jul, PTSD (post-traumatic stress disorder) F43.10 and Bipolar I disorder with depression F31.9 [place] [id number] [place] [address] 15352- 7211 Jul, Pelvic pain R10.2 ; Amenorrhea N91.2 and BMI 50.0-59.9, adult Z68.43 [place] [id number] [place] [address] 54387- 1301 Jun, BMI 50.0-59.9, adult Z68.43 ; Bipolar I disorder with depression F31.9 ; PTSD (post-traumatic stress disorder) F43.10 and 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 [facility] [id number] [place] [address] 07108 -7068 15 Jun, 2017 Other viral agents as the cause of diseases classified elsewhere B97.89 ; Other specified respiratory disorders J98.8 ; Bronchitis J40 and Cough R05 [place] [id number] [place] [address] 63880- 9715 Jun, PTSD (post-traumatic stress disorder) F43.10 [facility] [address] [address]- 0966 Jun, PTSD (post-traumatic stress disorder) F43.10 and Bipolar I disorder with depression F31.9 [facility] [address] [address]- 1532 13 May, 2017 PTSD (post-traumatic stress disorder) F43.10 and Bipolar I disorder with depression F31.9 [facility] [address] [place] [address] 53985- 6450 12 May, 2017 [facility] [id number] [place] [address] 08482- 8239 07 May, 2017 PTSD (post-traumatic stress disorder) F43.10 and Bipolar I disorder with depression F31.9 [facility] [address] [place] [address] 69132- 4008 Apr, PTSD (post-traumatic stress disorder) F43.10 and Bipolar I disorder with depression F31.9 [facility] [id number] [place] [address] 62603- 2697 Apr, PTSD (post-traumatic stress disorder) F43.10 and Bipolar I disorder with depression F31.9 [facility] [address], [place] [address]- 6416 Mar, PTSD (post-traumatic stress disorder) F43.10 ; Obsessive- compulsive disorder, unspecified type F42.9 ; Bipolar I disorder with depression F31.9 and Other exterminator (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.899 [facility] [id number] [place] [address] 38200- 2634 Mar, PTSD (post-traumatic stress disorder) F43.10 and Bipolar I disorder with depression F31.9 [facility] [address] [address]- 3860 Feb, PTSD (post-traumatic stress disorder) F43.10 and Bipolar I disorder with depression F31.9 [facility] [address] [address]- 2471 Feb, PTSD (post-traumatic stress disorder) F43.10 and Bipolar I disorder with depression F31.9 [facility] [address] [address] Jan, Strep pharyngitis J02.0 [facility] [id number] [place] [address] 92449- 9357 Jan, [facility] [id number] [place] [address] 16433- 1520 Jan, [facility] [id number] [place] [address] 70420- 1731 Jan, PTSD (post-traumatic stress disorder) F43.10 and Bipolar I disorder with depression F31.9 [facility] [id number] [place] [address] 04359- 7705 Jan, PTSD (post-traumatic stress disorder) F43.10 and Bipolar I disorder with depression F31.9 [facility] [id number] [place] [address] 74817- 2193 Jan, Other exterminator (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.899 [facility] [id number] [place] [address] 73261- 1465 Jan, PTSD (post-traumatic stress disorder) F43.10 ; Obsessive- compulsive disorder, unspecified type F42.9 ; Bipolar I disorder with depression F31.9 and Other shelter (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.899 [facility] [id number] [place] [address] 85844- 7433 Dec, Encounter for IUD removal Z30.432 and control counseling Z30.09 [facility] [address] [place] [address] 07801- 3714 Dec, PTSD (post-traumatic stress disorder) F43.10 ; Obsessive- compulsive disorder, unspecified type F42.9 and Bipolar I disorder with depression F31.9 [facility] [address] [place] [address] 27482- 1116 25 Dec, 2016 PTSD (post-traumatic stress disorder) F43.10 and Bipolar I disorder with depression F31.9 [facility] [address] [place] [address] 43127- 6016 12 Dec, 2016 PTSD (post-traumatic stress disorder) F43.10 and Bipolar I disorder with depression F31.9 [facility] [address] [place] [address] 91800- 8389 11 Dec, 2016 Mood disorder F39 [facility] [id number] [place] [address] 44218- 8678 08 Dec, 2016 PTSD (post-traumatic stress disorder) F43.10 ; Mood disorder F39 and Obsessive-compulsive disorder, unspecified type F42.9 [facility] [id number] [place] [address] 33300- 2100 Dec, PTSD (post-traumatic stress disorder) F43.10 and Bipolar I disorder with depression F31.9 [facility] WALK IN [facility] [id number] [place] [address] 80253 -2524 Dec, Adverse drug reaction, initial encounter T88.7XXA [facility] [id number] [place] [address] 83833- 0396 Dec, [facility] [id number] [place] [address] 45160- 1126 Nov, PTSD (post-traumatic stress disorder) F43.10 and Bipolar I disorder with depression F31.9 [facility] [id number] [place] [address] 24483- 8945 Nov, PTSD (post-traumatic stress disorder) F43.10 ; Mood disorder F39 and Obsessive-compulsive disorder, unspecified type F42.9 [facility] [id number] [place] [address] 22407- 2753 Nov, PTSD (post-traumatic stress disorder) F43.10 and Bipolar I disorder with depression F31.9 [facility] [address], [place] [address]- 5733 Nov, PTSD (post-traumatic stress disorder) F43.10 and Bipolar I disorder with depression F31.9 [facility] [address], [place] [address] -[address] Nov, [facility] [id number] [place] [address] 02470- 3355 Nov, PTSD (post-traumatic stress disorder) F43.10 and Bipolar I disorder with depression F31.9 [facility] [address] [address]- 1988 Nov, PTSD (post-traumatic stress disorder) F43.10 and Bipolar I disorder with depression F31.9 [facility] [address], [place] [address]- 1874 Oct, [facility] [address] [place] [address] 35541- 2860 Oct, PTSD (post-traumatic stress disorder) F43.10 ; Mood disorder F39 and Obsessive-compulsive disorder, unspecified type F42.9 [facility] [address], [place] [address]- 9681 Oct, PTSD (post-traumatic stress disorder) F43.10 and Bipolar I disorder with depression F31.9 [facility] [address], [place] [address]- 9320 Oct, PTSD (post-traumatic stress disorder) F43.10 and Bipolar I disorder with depression F31.9 [facility] [address], [place] [address]- 8611 Oct, PTSD (post-traumatic stress disorder) F43.10 ; Mood disorder F39 and Obsessive-compulsive disorder, unspecified type F42.9 [facility] [id number] [address]- 2144 Oct, [facility] [address], [place] [address]- 8029 Oct, PTSD (post-traumatic stress disorder) F43.10 and Bipolar I disorder with depression F31.9 [facility] [address], [place] [address]- 5054 Oct, PTSD (post-traumatic stress disorder) F43.10 ; Mood disorder F39 and Obsessive-compulsive disorder, unspecified type F42.9 [place] [address], [place] [address]- 4485 Sep, PTSD (post-traumatic stress disorder) F43.10 and Bipolar I disorder with depression F31.9 [place] [address], [place] [address]- 7070 Sep, PTSD (post-traumatic stress disorder) F43.10 ; Mood disorder F39 and Obsessive-compulsive disorder, unspecified type F42.9 [place] [address], [place] [address]- 4558 Sep, PTSD (post-traumatic stress disorder) F43.10 and Bipolar I disorder with depression F31.9 [facility] [address], [place] [address]- 7487 Sep, PTSD (post-traumatic stress disorder) F43.10 and Bipolar I disorder with depression F31.9 [facility] [address], [place] [address]- 3843 August, PTSD (post-traumatic stress disorder) F43.10 and Bipolar I disorder with depression F31.9 [facility] [address], [place] [address] -[address]06 August, Pharyngitis due to other organism J02.8 [facility] [address], [place] [address]- 9278 August, PTSD (post-traumatic stress disorder) F43.10 ; Bipolar 1 disorder, mixed F31.60 and Other shelter (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.899 [facility] [id number] [place] [address] 51101- 3956 August, PTSD (post-traumatic stress disorder) F43.10 and Bipolar I disorder with depression F31.9 [facility] [id number] [address]- 8036 Jul, PTSD (post-traumatic stress disorder) F43.10 and Bipolar I disorder with depression F31.9 [facility] [id number] [place] [address] 67509- 5186 Jul, PTSD (post-traumatic stress disorder) F43.10 and Bipolar I disorder with depression F31.9 [facility] [id number] [place] [address] 35596- 9956 Jul, PTSD (post-traumatic stress disorder) F43.10 and Bipolar I disorder with depression F31.9 [facility] [id number] [place] [address] 75660- 1248 Jul, Other exterminator (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.899 [facility] [id number] [place] [address] 32419- 0478 Jun, PTSD (post-traumatic stress disorder) F43.10 and Bipolar I disorder with depression F31.9 [facility] [id number] [place] [address] 65939- 8656 Jun, Bipolar 1 disorder, mixed F31.60 ; PTSD (post-traumatic stress disorder) F43.10 and Other exterminator (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.899 [facility] [id number] [place] [address] 43698- 6726 Jun, PTSD (post-traumatic stress disorder) F43.10 and Depression , unspecified depression type F32.9 [facility] [id number] [address]- 1486 Jun, PTSD (post-traumatic stress disorder) F43.10 and Depression , unspecified depression type F32.9 [place] [id number] [place] [address] 04164- 0848 Jun, PTSD (post-traumatic stress disorder) F43.10 and Depression , unspecified depression type F32.9 [facility] 0[address]81 -8526 May, Fever, unspecified fever cause R50.9 and Gastroenteritis K52.9 [place] [address] 18641- 3586 Mar, Sprain of other ligament of right ankle, subsequent encounter S93.491D [place] [address] 20924- 3449 Mar, [facility]ALK IN [place] [address] 72462 -9944 Feb, Scabies infestation B86 [place] [address] 96232- 3431 Feb, Dental caries K02.9 [place] [address] 09230- 4674 Jan, [facility] [place] [id number] [place] [address] 59771 -7472 Jan, Pharyngitis, unspecified etiology J02.9 [place] [id number] [place] [address] 81017- 8030 Jan, [place] [id number] [place] [address] 66303- 6108 Jan, Bipolar affective disorder, remission status unspecified F31.9 [place] [id number] [place] [address] 31611- 9850 Jan, Encounter for dental examination and cleaning without abnormal findings Z01.20 [place] [address] 31450- 8410 Jan, Bipolar affective disorder, remission status unspecified F31.9 [facility] [id number] [place] [address] 26587- 2619 29 Dec, 2015 Bipolar affective disorder, remission status unspecified F31.9 and Depression, unspecified depression type F32.9 [place] [id number] [place] [address] 87511- 6970 Dec, Unspecified mood [affective] disorder F39 and Generalized anxiety disorder F41.1 [place] [id number] [place] [address] 24049- 1176 08 Dec, 2015 Depression, unspecified depression type F32.9 [place] [id number] [place] [address] 07382- 3417 Nov, Dental caries K02.9 [place] [id number] [place] [address] 14242- 8803 Nov, Dental examination Z01.20 [place] [id number] [place] [address] 57820- 9266 Sep, Bipolar affective disorder, remission status unspecified F31.9 [place] [id number] [place] [address] 05021- 7696 August, Tension headache G44.209 [facility] [id number] [place] [address] 57889 -2026 Jul, [facility] [id number] [place] [address] 32918 -7411 Jul, Upper respiratory infection J06.9 and Gastroenteritis K52.9 [place] [id number] [place] [address] 99486- 7115 Jun, Bronchitis J40 [facility] [id number] [place] [address] 43517 -1742 05 Feb, 2015 Thoracic back pain M54.6 and Left shoulder pain M25.512 [place] [address] [place] [address]- 7789 05 Feb, 2015 [facility] [address] [id number] [place] [address]- 0201 14 Jul, 2014 [facility] [place] [facility] [address] [id number] [place] [address]- 4348 Jul, [facility] [address] [id number] [place] [address]- 3414 Apr, [facility] [place] [facility] [address] [id number] [place] [address]- 0937 Apr, [facility] [address] [id number] [place] [address]- 2535 Apr, [facility] [address] [id number] [place] [address]- 7536 Apr, [facility] [address] [id number] [place] [address]- 3050 Mar, [facility] [address] [id number] [place] [address]- 6543 Mar, [facility] [place] [facility] [address] [id number] [place] [address]- 5015 Mar, [facility] [address] [facility] [id number] [place] [address]- 3698 Mar, [facility] [place] [facility] [address] [id number] [place] [address]- 1065 Feb, [facility] [place] [facility] [address] [id number] [place] [address]- 2595 Feb, [facility] [place] [facility] [address] [id number] [place] [address]- 9778 Feb, [facility] [place] [facility] [address] [id number] [place] [address]- 6986 Feb, [facility] [place] [facility] [address] [id number] [place] [address]289 Jan, [facility] [place] [facility] [address] [id number] [place] [address]- 9287 15 Jan, 2014 [facility] [place] [facility] [address] [id number] [place] [address]- 0272 14 Jan, 2014 [facility] [place] [facility] [address] [id number] [place] [address]- 1434 14 Jan, 2014 [facility] [place] [facility] [address] [id number] [place] [address]- 9204 Jan, [facility] [place] [facility] [address] [id number] [place] [address]- 5108 Jan, [facility] [place] [facility] [address] [id number] [place] [address]- 6155 15 Dec, 2013 [facility] [place] [facility] [address] [id number] [place] [address]- 4653 Dec, [facility] [place] [facility] [address] [id number] [place] [address]- 9569 Nov, [facility] [place] [facility] [address] [id number] [place] [address]- 3280 Nov, [facility] [place] [facility] [address] [id number] [place] [address]- 8763 Nov, [facility] [place] [facility] [address] [id number] [place] [address]- 6300 Nov, [facility] [place] [facility] [address] [id number], [place] [address]- 0343 Nov, [facility] [place] [facility] [address] [id number] [place] [address]- 4470 Nov, [facility] [place] [facility] [address] [id number] [place] [address]- 3842 Nov, [facility] [place] [facility] [address] [id number] [place] [address]- 9795 Nov, [facility] [place] [facility] [address] [id number], [place] [address]- 2276 Nov, [facility] [place] [facility] [address] [id number] [place] [address]- 2149 Oct, [facility] [place] [facility] [address] [id number] [place] [address]- 7723 Oct, [facility] [place] [facility] [address] [id number] [place] [address]- 6715 Oct, [facility] [place] [facility] [address] [id number] [place] [address]- 2709 Oct, [facility] [place] [facility] [address] [id number] [place] [address]- 2257 Oct, [facility] [place] [facility] [address] [id number] [place] [address]- 4211 Oct, [facility] [place] [facility] [address] [id number] [place] [address]- 4356 Oct, [facility] [place] [facility] [address] [id number] [place] [address]- 1504 Oct, [facility] [place] [facility] [address] [id number] [place] [address] Oct, [facility] [place] [facility] [address] [id number] [place] [address] Oct, [facility] [place] [facility] [address] [id number] [place] [address] Oct, [facility] [place] [facility] [address] [id number] [place] [address] Oct, [facility] [place] [facility] [address] [id number] [place] [address] Oct, [facility] [place] [facility] [address] [id number] [place] [address] Oct, [facility] [place] [facility] [address] [id number] [place] [address] Oct, [facility] [place] [facility] [address] [id number] [place] [address] Oct, [facility] [place] [facility] [address] [id number] [place] [address] Oct, [facility] [place] [facility] [address] [id number] [place] [address] Oct, [facility] [place] [facility] [address] [id number] [place] [address] Oct, [facility] [place] [facility] [address] [id number] [place] [address] Sep, [facility] [place] [facility] [address] [id number] [place] [address] Sep, [facility] [place] [facility] [address] [id number] [place] [address] Sep, [facility] [place] [facility] [address] [id number] [place] [address] Sep, [facility] [place] [facility] [address] [id number] [place] [address] Feb, [facility] [place] [facility] [address] [id number] [place] [address] Feb, [facility] [place] [facility] [address] [id number] [place] [address] Dec, [facility] [place] [facility] [address] [id number] [place] [address] Dec, [facility] [place] [facility] [address] [id number] [place] [address] Nov, [facility] [place] [facility] [address] [id number] [place] [place] [address] Nov, [facility] [place] [facility] [address] [id number] [place] [address] Nov, [facility] [place] [facility] [address] [id number] [place] [address] Nov, [facility] [address] [id number] [place] [address] Nov, [facility] [place] [facility] [address] [id number] [place] [address] Nov, [facility] [address] [id number] [place] [address] Oct, [facility] [place] [facility] [address] [id number] [place] [address] Apr, [facility] [address] [id number] [place] [address] August, [facility] [address] [id number] [place] [address] August, [facility] [address] [id number] [place] [address] August, [facility] [address] [id number] [place] [address] Jul, [facility] [address] [id number] [place] [address] Jun, [facility] [place] [facility] [address] [id number] [place] [address] Jun, [facility] [place] [facility] [address] [id number] [place] [address] Jun, [facility] [place] [facility] [address] [id number] [place] [address] Jun, [facility] [place] [facility] [address] [id number] [place] [address] Jun, [facility] [place] [facility] [address] [id number] [place] [address] Jun, [facility] [place] [facility] [address] [id number] [place] [address] May, [facility] [place] [facility] [address] [id number] [place] [address] 16 May, 2011 [facility] [address] [id number] [place] [address] 09 May, 2011 [facility] [place] [facility] [address] [id number] [place] [address] 07 May, 2011 [facility] [address] [id number] [place] [address] 06 May, 2011 [facility] [place] [facility] [address] [id number] [place] [address] 06 May, 2011 [facility] [address] [id number] [place] [address] Apr, [facility] [address] [facility] [id number] [place] [address] 07 Mar, 2011 [facility] [address] [facility] [id number] [place] [address] 06 Mar, 2011 [facility] [address] [facility] [id number] [place] [address] 02 Feb, 2011 [facility] [address] [facility] [id number] [place] [address] 13 Jan, 2011 [facility] [address] [facility] [id number] [place] [address] 31 Mar, 2009 [facility] [place] [facility] [address] [facility] [id number] [place] [address] 15 Mar, 2009 [facility] [place] [facility] [address] [id number] [place] [address] 10 Mar, 2009 [facility] [place] [facility] [address] [facility] [id number] [place] [address] 10 Mar, 2009 [facility] [place] [facility] [address] [facility] [id number] [place] [address] 02 Mar, 2009 [facility] [place] [facility] [address] [facility] [id number] [place] [address] Feb, [facility] [address] [facility] [id number] [place] [address] Feb, [facility] [address] [facility] [id number], [place] [address] Nov, [facility] [address] [facility] [id number], [place] [address] May, IMMUNIZATIONS No Known Immunizations SOCIAL HISTORY Never Assessed REASON FOR VISIT Follow-up PTSD/Bipolar Disorder PLAN OF CARE Activity Details Follow Up 3 Weeks Reason: Follow-up VITAL SIGNS MEDICATIONS Unknown Medications RESULTS No Results PROCEDURES Procedure Date Ordered Result Body Site Psychotherapy, patient &/family, 45 minutes, established patient August 13, 2017 INSTRUCTIONS MEDICATIONS ADMINISTERED No Known Medications MEDICAL (GENERAL) HISTORY Type Description Date Medical History HELP syndrome Medical History bi-polar Medical History hypertension Medical History hx of seizure x1, isolated Surgical History gallbladder 10/2013 Surgical History 03/2014 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
--- OUTSIDE RECORDS SUMMARY | 2017-12-25 20:11 | XMS REPORT ---
Author Author MARIANO REDDY Organization [facility], [place] Address [address] [place] [address] Care Team Providers Care Prompt Care Rn Name Role Phone MARIANO REDDY Unavailable PROBLEMS Type Condition ICD9-CM Code SVT72-UX Code Onset Dates Condition Status SNOMED Code Problem Bipolar I disorder with depression F31.9 Active 61381709 Problem Amenorrhea N91.2 Active 25663020 Problem Social anxiety disorder F40.10 Active 94830330 Problem Obsessive-compulsive disorder, unspecified type F42.9 Active 478864302 Problem PTSD (post-traumatic stress disorder) F43.10 Active 28479167 Problem Mood disorder F39 Active 59419355 Problem 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 Active [id number] ALLERGIES No Information ENCOUNTERS Encounter Location Date Diagnosis [facility] [place] [id number] [place] [address] 23843- 6849 Nov, [facility] [place] [address] 6[address]15- 8413 Nov, [facility] [place] [id number] [place] [address] 24845- 5802 Oct, PTSD (post-traumatic stress disorder) F43.10 and Bipolar I disorder with depression F31.9 [facility] [place] [id number] [place] [address] 32123- 0432 Oct, [facility] [place] [id number] [place] [address] 93442- 5723 Oct, PTSD (post-traumatic stress disorder) F43.10 and Bipolar I disorder with depression F31.9 [facility] [place] [id number] [place] [address] 21913- 2144 Oct, [facility] [place] [id number] [address] 2647 Sep, Bipolar I disorder with depression F31.9 [facility] [id number] [place] [address] 58709- 6185 Sep, Bipolar I disorder with depression F31.9 ; PTSD (post- traumatic stress disorder) F43.10 ; 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 ; Social anxiety disorder F40.10 and BMI 50.0-59.9, adult Z68.43 [place] [id number] [place] [address] 69834- 4000 Sep, PTSD (post-traumatic stress disorder) F43.10 and Bipolar I disorder with depression F31.9 [facility] [id number] [place] [address] 94496- 8670 Sep, PTSD (post-traumatic stress disorder) F43.10 and Bipolar I disorder with depression F31.9 [facility] [id number] [place] [address] 68204- 2915 August, PTSD (post-traumatic stress disorder) F43.10 and Bipolar I disorder with depression F31.9 [facility] [id number] [place] [address] 99439- 9306 August, Bipolar I disorder with depression F31.9 ; PTSD (post- traumatic stress disorder) F43.10 ; 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 ; Social anxiety disorder F40.10 and BMI 50.0-59.9, adult Z68.43 [place] [address] [place] [address] 06219- 5354 August, [facility] [id number] [place] [address] 59386- 8804 August, Bipolar I disorder with depression F31.9 ; PTSD (post- traumatic stress disorder) F43.10 ; 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 ; Social anxiety disorder F40.10 and BMI 50.0-59.9, adult Z68.43 [facility] [id number] [place] [address] 08381- 8133 August, [facility] [id number] [place] [address] 20925- 2556 August, [facility] [id number] [place] [address] 63959- 8313 August, PTSD (post-traumatic stress disorder) F43.10 and Bipolar I disorder with depression F31.9 [facility] [id number] [place] [address] 34812- 8786 August, [place] [facility] [address] 51870- 5140 Jul, Bipolar I disorder with depression F31.9 ; PTSD (post- traumatic stress disorder) F43.10 ; 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 ; Social anxiety disorder F40.10 and BMI 50.0-59.9, adult Z68.43 [facility] [id number] [place] [address] 23255- 0247 Jul, PTSD (post-traumatic stress disorder) F43.10 and Bipolar I disorder with depression F31.9 [facility] [id number] [place] [address] 52525- 6357 Jul, Pelvic pain R10.2 ; Amenorrhea N91.2 and BMI 50.0-59.9, adult Z68.43 [place] [id number] [place] [address] 47388- 6899 Jun, BMI 50.0-59.9, adult Z68.43 ; Bipolar I disorder with depression F31.9 ; PTSD (post-traumatic stress disorder) F43.10 and 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 [facility] [id number] [place] [address] 21767 -0623 Jun, Other viral agents as the cause of diseases classified elsewhere B97.89 ; Other specified respiratory disorders J98.8 ; Bronchitis J40 and Cough R05 [place] [id number] [place] [address] 71719- 6503 Jun, PTSD (post-traumatic stress disorder) F43.10 [facility] [place] [address] [place] [address] 25831- 1780 Jun, PTSD (post-traumatic stress disorder) F43.10 and Bipolar I disorder with depression F31.9 [facility] [place] [address] [place] [address] 93787- 0364 13 May, 2017 PTSD (post-traumatic stress disorder) F43.10 and Bipolar I disorder with depression F31.9 [facility] [place] [id number] [place] [address] 10220- 9874 12 May, 2017 [facility] [place] [id number] [place] [address] 54813- 0939 May, PTSD (post-traumatic stress disorder) F43.10 and Bipolar I disorder with depression F31.9 [facility] [place] [id number] [place] [address] 52262- 2202 Apr, PTSD (post-traumatic stress disorder) F43.10 and Bipolar I disorder with depression F31.9 [facility] [id number] [place] [address] 29374- 8405 Apr, PTSD (post-traumatic stress disorder) F43.10 and Bipolar I disorder with depression F31.9 [facility] [place] [id number] [place] [address] 58015- 0104 Mar, PTSD (post-traumatic stress disorder) F43.10 ; Obsessive- compulsive disorder, unspecified type F42.9 ; Bipolar I disorder with depression F31.9 and Other detention (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.899 [facility] [place] [id number] [place] [address] 26533- 8437 Mar, PTSD (post-traumatic stress disorder) F43.10 and Bipolar I disorder with depression F31.9 [facility] [place] [id number] [place] [address] 63676- 2922 Feb, PTSD (post-traumatic stress disorder) F43.10 and Bipolar I disorder with depression F31.9 [facility] [place] [address] [address]- 0763 Feb, PTSD (post-traumatic stress disorder) F43.10 and Bipolar I disorder with depression F31.9 [facility] [address] [address] Jan, Strep pharyngitis J02.0 [facility] [place] [id number] [place] [address] 44358- 1748 Jan, [facility] [place] [id number] [place] [address] 46543- 8614 Jan, [facility] [place] [id number] [place] [address] 32806- 0637 Jan, PTSD (post-traumatic stress disorder) F43.10 and Bipolar I disorder with depression F31.9 [facility] [place] [id number] [place] [address] 04079- 4267 Jan, PTSD (post-traumatic stress disorder) F43.10 and Bipolar I disorder with depression F31.9 [facility] [place] [address] [place] [address] 65347- 3048 Jan, Other cisco consultant (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.899 [place] [address] [place] [address] 85758- 5873 Jan, PTSD (post-traumatic stress disorder) F43.10 ; Obsessive- compulsive disorder, unspecified type F42.9 ; Bipolar I disorder with depression F31.9 and Other cisco consultant (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.899 [facility] [place] [id number] [place] [address] 16049- 0490 Dec, Encounter for IUD removal Z30.432 and control counseling Z30.09 [facility], [place] [address] [address]- 9346 Dec, PTSD (post-traumatic stress disorder) F43.10 ; Obsessive- compulsive disorder, unspecified type F42.9 and Bipolar I disorder with depression F31.9 [facility] [place] [address] [place] [address] 75971- 3597 25 Dec, 2016 PTSD (post-traumatic stress disorder) F43.10 and Bipolar I disorder with depression F31.9 [facility] [place] [address] [address]- 3763 Dec, PTSD (post-traumatic stress disorder) F43.10 and Bipolar I disorder with depression F31.9 [facility] [place] [id number] [place] [address] 38544- 9430 11 Dec, 2016 Mood disorder F39 [facility] [place] [id number] [place] [address] 13721- 6825 08 Dec, 2016 PTSD (post-traumatic stress disorder) F43.10 ; Mood disorder F39 and Obsessive-compulsive disorder, unspecified type F42.9 [facility] [place] [id number] [place] [address] 73115- 0483 Dec, PTSD (post-traumatic stress disorder) F43.10 and Bipolar I disorder with depression F31.9 [facility] [id number] [place] [address] 10489 -5329 Dec, Adverse drug reaction, initial encounter T88.7XXA [facility] [place] [id number] [place] [address] 00676- 0267 Dec, [facility] [place] [id number] [place] [address] 53455- 2629 Nov, PTSD (post-traumatic stress disorder) F43.10 and Bipolar I disorder with depression F31.9 [facility] [place] [address] [place] [address] 16916- 5878 Nov, PTSD (post-traumatic stress disorder) F43.10 ; Mood disorder F39 and Obsessive-compulsive disorder, unspecified type F42.9 [facility] [place] [id number] [place] [address] 41152- 0476 Nov, PTSD (post-traumatic stress disorder) F43.10 and Bipolar I disorder with depression F31.9 [facility] [place] [address] [address]- 2926 Nov, PTSD (post-traumatic stress disorder) F43.10 and Bipolar I disorder with depression F31.9 [facility] [address] [address] -5[address] Nov, [facility] [place] [address] [address]- 0238 Nov, PTSD (post-traumatic stress disorder) F43.10 and Bipolar I disorder with depression F31.9 [facility] [place] [address] [address]- 3235 Nov, PTSD (post-traumatic stress disorder) F43.10 and Bipolar I disorder with depression F31.9 [facility] [place] [address] [address]- 4837 Oct, [facility] [place] [address] [address]- 0858 Oct, PTSD (post-traumatic stress disorder) F43.10 ; Mood disorder F39 and Obsessive-compulsive disorder, unspecified type F42.9 [facility] [place] [address] [address]- 7001 Oct, PTSD (post-traumatic stress disorder) F43.10 and Bipolar I disorder with depression F31.9 [facility] [place] [id number] [address]- 1717 Oct, PTSD (post-traumatic stress disorder) F43.10 and Bipolar I disorder with depression F31.9 [facility] [place] [address] [address]- 8056 Oct, PTSD (post-traumatic stress disorder) F43.10 ; Mood disorder F39 and Obsessive-compulsive disorder, unspecified type F42.9 [facility] [place] [address] [address]- 5615 Oct, [facility] [place] [id number] [place] [address] 64791- 6054 Oct, PTSD (post-traumatic stress disorder) F43.10 and Bipolar I disorder with depression F31.9 [facility] [place] [address] [address]- 2347 Oct, PTSD (post-traumatic stress disorder) F43.10 ; Mood disorder F39 and Obsessive-compulsive disorder, unspecified type F42.9 [facility] [id number] [place] [address] 52307- 0493 Sep, PTSD (post-traumatic stress disorder) F43.10 and Bipolar I disorder with depression F31.9 [place] [address] [place] [address] 41621- 0437 Sep, PTSD (post-traumatic stress disorder) F43.10 ; Mood disorder F39 and Obsessive-compulsive disorder, unspecified type F42.9 [place] [address] [place] [address] 05697- 1801 Sep, PTSD (post-traumatic stress disorder) F43.10 and Bipolar I disorder with depression F31.9 [place] [address] [address]- 6873 Sep, PTSD (post-traumatic stress disorder) F43.10 and Bipolar I disorder with depression F31.9 [facility] [place] [address] [address]- 0937 August, PTSD (post-traumatic stress disorder) F43.10 and Bipolar I disorder with depression F31.9 [facility] [id number] [place] [address] 44547 -8903 August, Pharyngitis due to other organism J02.8 [facility] [place] [address] [address]- 6096 August, PTSD (post-traumatic stress disorder) F43.10 ; Bipolar 1 disorder, mixed F31.60 and Other detention (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.899 [facility] [place] [id number] [place] [address] 53468- 7986 August, PTSD (post-traumatic stress disorder) F43.10 and Bipolar I disorder with depression F31.9 [facility] [place] [id number] [place] [address] 42193- 4876 Jul, PTSD (post-traumatic stress disorder) F43.10 and Bipolar I disorder with depression F31.9 [facility] [place] [id number] [place] [address] 31739- 9546 Jul, PTSD (post-traumatic stress disorder) F43.10 and Bipolar I disorder with depression F31.9 [facility] [place] [id number] [place] [address] 42443- 1255 Jul, PTSD (post-traumatic stress disorder) F43.10 and Bipolar I disorder with depression F31.9 [facility] [place] [id number] [place] [address] 97440- 9492 Jul, Other detention (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.899 [facility] [place] [id number] [place] [address] 54584- 5330 Jun, PTSD (post-traumatic stress disorder) F43.10 and Bipolar I disorder with depression F31.9 [facility] [place] [address] [place] [address] 82691- 9742 Jun, Bipolar 1 disorder, mixed F31.60 ; PTSD (post-traumatic stress disorder) F43.10 and Other cisco consultant (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.899 [facility] [place] [id number] [place] [address] 41039- 8571 Jun, PTSD (post-traumatic stress disorder) F43.10 and Depression , unspecified depression type F32.9 [facility] [place] [id number] [place] [address] 10639- 9410 Jun, PTSD (post-traumatic stress disorder) F43.10 and Depression , unspecified depression type F32.9 [place] [address] 46775- 6134 Jun, PTSD (post-traumatic stress disorder) F43.10 and Depression , unspecified depression type F32.9 [facility] [address] 11048 -0449 May, Fever, unspecified fever cause R50.9 and Gastroenteritis K52.9 [place] [address] 56609- 4601 Mar, Sprain of other ligament of right ankle, subsequent encounter S93.491D [place] [address] 00408- 2911 Mar, [facility] [place] [address] 40222 -8271 Feb, Scabies infestation B86 [place] [address] 88730- 6864 Feb, Dental caries K02.9 [place] [address] 75010- 0559 Jan, [facility] [place] [address] 49260 -8195 Jan, Pharyngitis, unspecified etiology J02.9 [place] [address] 77105- 0591 Jan, [place] [address] 86854- 8519 Jan, Bipolar affective disorder, remission status unspecified F31.9 [place] [address] 22247- 4764 Jan, Encounter for dental examination and cleaning without abnormal findings Z01.20 [place] [address] [place] [address]- 9924 Jan, Bipolar affective disorder, remission status unspecified F31.9 [place] [place] [id number] [place] [address] 61729- 0868 29 Dec, 2015 Bipolar affective disorder, remission status unspecified F31.9 and Depression, unspecified depression type F32.9 [place] [id number] [place] [address] 51288- 2240 Dec, Unspecified mood [affective] disorder F39 and Generalized anxiety disorder F41.1 [place] [address] 82852- 3346 08 Dec, 2015 Depression, unspecified depression type F32.9 [place] [id number] [place] [address] 40959- 5670 Nov, Dental caries K02.9 [place] [address] 96268- 0755 Nov, Dental examination Z01.20 [place] [address] 77644- 5483 Sep, Bipolar affective disorder, remission status unspecified F31.9 [place] [id number] [place] [address] 46582- 6144 August, Tension headache G44.209 [facility] [id number] [place] [address] 44701 -2798 Jul, [facility] [id number] [place] [address] 24250 -7612 Jul, Upper respiratory infection J06.9 and Gastroenteritis K52.9 [place] [address] 40612- 7084 Jun, Bronchitis J40 [facility] [id number] [place] [address] 08704 -4506 05 Feb, 2015 Thoracic back pain M54.6 and Left shoulder pain M25.512 [facility] [place] [facility] [address] [id number] [place] [address]- 0865 05 Feb, 2015 [facility] [place] [facility] [address] [id number] [place] [address]- 5492 14 Jul, 2014 [facility] [place] [facility] [address] [id number] [place] [address]- 2762 Jul, [facility] [place] [facility] [address] [id number] [place] [address]- 2303 Apr, [facility] [place] [facility] [address] [id number] [place] [address]- 9319 Apr, [facility] [place] [facility] [address] [id number] [place] [address]- 7075 Apr, [facility] [place] [facility] [address] [id number] [place] [address]- 4876 Apr, [facility] [place] [facility] [address] [id number] [place] [address]- 3972 Mar, [facility] [place] [facility] [address] [id number] [place] [address]- 4171 Mar, [facility] [place] [facility] [address] [id number] [place] [address]- 1004 Mar, [facility] [place] [facility] [address] [id number] [place] 5943 Mar, [facility] [place] [facility] [address] [id number] [place] [address]- 3305 Feb, [facility] [place] [facility] [address] [id number] [place] [address]- 3620 Feb, [facility] [place] [facility] [address] [id number] [place] [address]- 0023 Feb, [facility] [place] [facility] [address] [id number] [place] [address]- 8863 Feb, [facility] [place] [facility] [address] [id number] [place] [address]- 3665 15 Jan, 2014 [facility] [place] [facility] [address] [id number] [place] [address]- 1326 15 Jan, 2014 [facility] [place] [facility] [address] [id number] [place] [address]- 7536 14 Jan, 2014 [facility] [place] [facility] [address] [id number] [place] [address]- 0558 14 Jan, 2014 [facility] [place] [facility] [address] [id number] [place] [address]- 2377 Jan, [facility] [place] [facility] [address] [id number] [place] [address]- 3326 Jan, [facility] [place] [facility] [address] [id number] [place] [address]- 0969 15 Dec, 2013 [facility] [place] [facility] [address] [id number] [place] [address]- 2112 Dec, [facility] [place] [facility] [address] [id number] [place] [address]- 3475 Nov, [facility] [place] [facility] [address] [id number] [place] [address]- 8143 Nov, [facility] [place] [facility] [address] [id number] [place] [address]- 4076 Nov, [facility] [place] [facility] [address] [id number] [place] [address]- 0733 Nov, [facility] [place] [facility] [address] [id number] [place] [address] Nov, [facility] [place] [facility] [address] [id number] [place] [address] Nov, [facility] [place] [facility] [address] [id number] [place] [address] Nov, [facility] [place] [facility] [address] [id number] [place] [address] Nov, [facility] [place] [facility] [address] [id number] [place] [address] Nov, [facility] [place] [facility] [address] [id number] [place] [address] Oct, [facility] [place] [facility] [address] [id number] [place] [address] Oct, [facility] [place] [facility] [address] [id number] [place] [address] Oct, [facility] [place] [facility] [address] [id number] [place] [address] Oct, [facility] [place] [facility] [address] [id number] [place] [address] Oct, [facility] [place] [facility] [address] [id number] [place] [address] Oct, [facility] [place] [facility] [address] [id number] [place] [address] Oct, [facility] [place] [facility] [address] [id number] [place] [address] Oct, [facility] [place] [facility] [address] [id number] [place] [address] Oct, [facility] [place] [facility] [address] [id number] [place] [address] Oct, [facility] [place] [facility] [address] [id number] [place] [address] Oct, [facility] [place] [facility] [address] [id number] [place] [address] Oct, [facility] [place] [facility] [address] [id number] [place] [address] Oct, [facility] [place] [facility] [address] [id number] [place] [address] Oct, [facility] [place] [facility] [address] [id number] [place] [address] Oct, 2013 [facility] [place] [facility] [address] [id number] [place] [address] Oct, 2013 [facility] [place] [facility] [address] [id number] [place] [address] Oct, [facility] [place] [facility] [address] [id number] [place] [address] Oct, [facility] [place] [facility] [address] [id number] [place] [address] Oct, [facility] [place] [facility] [address] [id number] [place] [address] Sep, [facility] [place] [facility] [address] [id number] [place] [address] Sep, [facility] [place] [facility] [address] [id number] [place] [address] Sep, [facility] [place] [facility] [address] [id number] [place] [address] Sep, [facility] [place] [facility] [address] [id number] [place] [address] Feb, [facility] [place] [facility] [address] [id number] [place] [address] Feb, [facility] [place] [facility] [address] [id number] [place] [address] Dec, [facility] [place] [facility] [address] [id number] [place] [address] Dec, [facility] [place] [facility] [address] [id number] [place] [address] Nov, [facility] [place] [facility] [address] [id number] [place] [address] Nov, [facility] [place] [facility] [address] [id number] [place] [address] Nov, [facility] [place] [facility] [address] [id number] [place] [address] Nov, [facility] [address] [id number] [place] [address] Nov, [facility] [place] [facility] [address] [id number] [place] [address] Nov, [facility] [place] [facility] [address] [id number] [place] [address] Oct, [facility] [place] [facility] [address] [id number] [place] [address] Apr, [facility] [place] [facility] [address] [id number] [place] [address] August, [facility] [place] [facility] [address] [id number] [place] [address] August, [facility] [place] [facility] [address] [id number] [place] [address] August, [facility] [place] [facility] [address] [id number] [place] [address] Jul, [facility] [place] [facility] [address] [id number] [place] [address] Jun, [facility] [place] [facility] [address] [id number] [place] [address] Jun, [facility] [place] [facility] [address] [id number] [place] [address] Jun, [facility] [place] [facility] [address] [id number] [place] [address] Jun, [facility] [place] [facility] [address] [id number] [place] [address] Jun, [facility] [place] [facility] [address] [id number] [place] [address] Jun, [facility] [place] [facility] [address] [id number] [place] [address] May, [facility] [place] [facility] [address] [id number] [place] [address] 16 May, 2011 [facility] [address] [id number] [place] [address] 09 May, 2011 [facility] [place] [facility] [address] [id number] [place] [address] 07 May, 2011 [facility] [place] [facility] [address] [id number] [place] [address] 06 May, 2011 [facility] [place] [facility] [address] [id number] [place] [address] 06 May, 2011 [facility] [address] [id number] [place] [address] Apr, [facility] [address] [id number] [place] [address] 07 Mar, 2011 [facility] [address] [id number] [place] [address] 06 Mar, 2011 [facility] [address] [id number] [place] [address] Feb, [facility] [address] [facility] [id number] [place] [address] 13 Jan, 2011 [facility] [address] [facility] [id number] [place] [address] 31 Mar, 2009 [facility] [place] [facility] [address] [id number] [place] [address] 15 Mar, 2009 [facility] [place] [facility] [address] [id number] [place] [address] 10 Mar, 2009 [facility] [place] [facility] [address] [id number] [place] [address] 10 Mar, 2009 [facility] [place] [facility] [address] [id number] [place] [address] 02 Mar, 2009 [facility] [place] [facility] [address] [id number] [place] [address] Feb, [facility] [place] [address] [facility] [id number] [place] [address] Feb, [facility] [place] [address] [facility] [id number] [place] [address] Nov, [facility] [place] [address] [facility] [id number] [place] [address] May, IMMUNIZATIONS No Known Immunizations SOCIAL HISTORY Never Assessed REASON FOR VISIT anxiety PLAN OF CARE VITAL SIGNS MEDICATIONS Unknown Medications RESULTS No Results PROCEDURES No Known procedures INSTRUCTIONS MEDICATIONS ADMINISTERED No Known Medications MEDICAL (GENERAL) HISTORY Type Description Date Medical History HELP syndrome Medical History bi-polar Medical History hypertension Medical History hx of seizure x1, isolated Surgical History gallbladder 10/2013 Surgical History 03/2014 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
--- OUTSIDE RECORDS SUMMARY | 2017-12-25 20:12 | XMS REPORT ---
Author Author MARIANO REDDY Organization [facility] Address [address] [place] [address] Care Team Providers Care Jumbo Operator Name Role Phone MARIANO REDDY Unavailable PROBLEMS Type Condition ICD9-CM Code [id number] Code Onset Dates Condition Status SNOMED Code Problem Bipolar I disorder with depression F31.9 Active 67311641 Problem Amenorrhea N91.2 Active 79147452 Problem Social anxiety disorder F40.10 Active 14987246 Problem Obsessive-compulsive disorder, unspecified type F42.9 Active 102967112 Problem PTSD (post-traumatic stress disorder) F43.10 Active 78628312 Problem Mood disorder F39 Active 04639266 Problem 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 Active 13776186 ALLERGIES No Information ENCOUNTERS Encounter Location Date Diagnosis [facility] [id number] [place] [address] 51806- 5412 Nov, [facility] [address] 38925- 2717 Nov, [facility] [id number] [place] [address] 93219- 6692 Nov, [facility] [id number] [place] [address] 03931- 8886 Oct, PTSD (post-traumatic stress disorder) F43.10 and Bipolar I disorder with depression F31.9 [facility] [id number] [place] [address] 62195- 8697 Oct, [facility] [address] 84731- 5831 Oct, PTSD (post-traumatic stress disorder) F43.10 and Bipolar I disorder with depression F31.9 [facility] [address] [place] [address]- 7922 Oct, [facility] [address], [place] [address] 0408 Sep, Bipolar I disorder with depression F31.9 [facility] [address], [place] [address] 8605 Sep, Bipolar I disorder with depression F31.9 ; PTSD (post- traumatic stress disorder) F43.10 ; 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 ; Social anxiety disorder F40.10 and BMI 50.0-59.9, adult Z68.43 [place] [id number] [place] [address] 92909- 1931 Sep, PTSD (post-traumatic stress disorder) F43.10 and Bipolar I disorder with depression F31.9 [place] [address], [place] [address]- 5205 Sep, PTSD (post-traumatic stress disorder) F43.10 and Bipolar I disorder with depression F31.9 [place] [address], [place] [address] 295[address] August, PTSD (post-traumatic stress disorder) F43.10 and Bipolar I disorder with depression F31.9 [place] [address], [place] [address] 8[address] August, Bipolar I disorder with depression F31.9 ; PTSD (post- traumatic stress disorder) F43.10 ; 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 ; Social anxiety disorder F40.10 and BMI 50.0-59.9, adult Z68.43 [facility] [address], [place] [address] August, [facility] [address] [address]- 7175 August, Bipolar I disorder with depression F31.9 ; PTSD (post- traumatic stress disorder) F43.10 ; 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 ; Social anxiety disorder F40.10 and BMI 50.0-59.9, adult Z68.43 [facility] [address], [place] [address] 2407 August, [facility] [id number] [place] [address] 72063- 5643 August, [place] [id number] [place] [address] 35575- 4890 August, PTSD (post-traumatic stress disorder) F43.10 and Bipolar I disorder with depression F31.9 [facility] [id number] [place] [address] 03015- 7369 August, [place] [id number] [place] [address] 72614- 2085 Jul, Bipolar I disorder with depression F31.9 ; PTSD (post- traumatic stress disorder) F43.10 ; 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 ; Social anxiety disorder F40.10 and BMI 50.0-59.9, adult Z68.43 [facility] [id number] [place] [address] 96450- 9792 Jul, PTSD (post-traumatic stress disorder) F43.10 and Bipolar I disorder with depression F31.9 [place] [id number] [place] [address] 48162- 0373 Jul, Pelvic pain R10.2 ; Amenorrhea N91.2 and BMI 50.0-59.9, adult Z68.43 [facility] [address], [place] [address]- 5795 Jun, BMI 50.0-59.9, adult Z68.43 ; Bipolar I disorder with depression F31.9 ; PTSD (post-traumatic stress disorder) F43.10 and 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 [facility] [address], [place] [address] Jun, Other viral agents as the cause of diseases classified elsewhere B97.89 ; Other specified respiratory disorders J98.8 ; Bronchitis J40 and Cough R05 [facility] [address], [place] [address]- 4166 13 Jun, 2017 PTSD (post-traumatic stress disorder) F43.10 [facility] [address], [place] [address]- 7736 13 Jun, 2017 PTSD (post-traumatic stress disorder) F43.10 and Bipolar I disorder with depression F31.9 [facility] [id number] [place] [address] 39499- 9226 13 May, 2017 PTSD (post-traumatic stress disorder) F43.10 and Bipolar I disorder with depression F31.9 [place] [id number] [place] [address] 50142- 5846 12 May, 2017 [place] [id number] [place] [address] 73609- 3596 07 May, 2017 PTSD (post-traumatic stress disorder) F43.10 and Bipolar I disorder with depression F31.9 [place] [id number] [place] [address] 32463- 9615 Apr, PTSD (post-traumatic stress disorder) F43.10 and Bipolar I disorder with depression F31.9 [place] [address], [place] [address]- 9098 Apr, PTSD (post-traumatic stress disorder) F43.10 and Bipolar I disorder with depression F31.9 [place] [address], [place] [address]- 0253 Mar, PTSD (post-traumatic stress disorder) F43.10 ; Obsessive- compulsive disorder, unspecified type F42.9 ; Bipolar I disorder with depression F31.9 [place] [facility] [place] [facility] 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.899 [place] [address], [place] [address]- 0641 Mar, PTSD (post-traumatic stress disorder) F43.10 and Bipolar I disorder with depression F31.9 [place] [address], [place] [address]- 4304 Feb, PTSD (post-traumatic stress disorder) F43.10 and Bipolar I disorder with depression F31.9 [facility] [address], [place] [address]- 3755 Feb, PTSD (post-traumatic stress disorder) F43.10 and Bipolar I disorder with depression F31.9 [facility] [id number] [place] [address] 33048 -9543 Jan, Strep pharyngitis J02.0 [facility] [id number] [place] [address] 01456- 5833 Jan, [facility] [id number] [place] [address] 65641- 9797 Jan, [facility] [id number] [place] [address] 09944- 4106 Jan, PTSD (post-traumatic stress disorder) F43.10 and Bipolar I disorder with depression F31.9 [facility] [id number] [place] [address] 49785- 6469 05 Jan, 2017 PTSD (post-traumatic stress disorder) F43.10 and Bipolar I disorder with depression F31.9 [facility] [address], [place] [address]- 8959 Jan, [place] [facility] 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.899 [facility] [id number] [place] [address] 01860- 1141 02 Jan, 2017 PTSD (post-traumatic stress disorder) F43.10 ; Obsessive- compulsive disorder, unspecified type F42.9 ; Bipolar I disorder with depression F31.9 and [place] [facility] 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.899 [facility] [address], [place] [address]- 1120 27 Dec, 2016 Encounter for IUD removal Z30.432 and control counseling Z30.09 [facility] [address], [place] [address]- 0496 Dec, PTSD (post-traumatic stress disorder) F43.10 ; Obsessive- compulsive disorder, unspecified type F42.9 and Bipolar I disorder with depression F31.9 [facility] [address], [place] [address]- 3999 Dec, PTSD (post-traumatic stress disorder) F43.10 and Bipolar I disorder with depression F31.9 [facility] [address], [place] [address]- 1663 Dec, PTSD (post-traumatic stress disorder) F43.10 and Bipolar I disorder with depression F31.9 [facility] [id number] [place] [address] 41919- 3024 Dec, Mood disorder F39 [facility] [id number] [place] [address] 17901- 9224 Dec, PTSD (post-traumatic stress disorder) F43.10 ; Mood disorder F39 and Obsessive-compulsive disorder, unspecified type F42.9 [facility] [address], [place] [address]- 9462 Dec, PTSD (post-traumatic stress disorder) F43.10 and Bipolar I disorder with depression F31.9 [facility] [id number], [place] [address] Dec, Adverse drug reaction, initial encounter T88.7XXA [facility] [address], [place] [address]- 6531 Dec, [facility] [id number] [place] [address] 68100- 6649 Nov, PTSD (post-traumatic stress disorder) F43.10 and Bipolar I disorder with depression F31.9 [facility] [address], [place] [address]- 6413 Nov, PTSD (post-traumatic stress disorder) F43.10 ; Mood disorder F39 and Obsessive-compulsive disorder, unspecified type F42.9 [facility] [id number], [place] [address]- 4346 Nov, PTSD (post-traumatic stress disorder) F43.10 and Bipolar I disorder with depression F31.9 [facility] [id number], [place] [address]- 7466 Nov, PTSD (post-traumatic stress disorder) F43.10 and Bipolar I disorder with depression F31.9 [facility] [address] [facility] [id number] [address] Nov, [facility] [id number] [place] [address] 31690- 7110 Nov, PTSD (post-traumatic stress disorder) F43.10 and Bipolar I disorder with depression F31.9 [facility] [id number] [place] [address] 26088- 4353 Nov, PTSD (post-traumatic stress disorder) F43.10 and Bipolar I disorder with depression F31.9 [facility] [id number], [place] [address]- 4266 Oct, [facility] [id number] [place] [address] 46177- 4106 Oct, PTSD (post-traumatic stress disorder) F43.10 ; Mood disorder F39 and Obsessive-compulsive disorder, unspecified type F42.9 [facility] [id number], [place] [address]- 1309 Oct, PTSD (post-traumatic stress disorder) F43.10 and Bipolar I disorder with depression F31.9 [facility] [id number], [place] [address]- 2406 Oct, PTSD (post-traumatic stress disorder) F43.10 and Bipolar I disorder with depression F31.9 [facility] [id number] [address]- 4986 Oct, PTSD (post-traumatic stress disorder) F43.10 ; Mood disorder F39 and Obsessive-compulsive disorder, unspecified type F42.9 [facility] [id number] [place] [address] 66048- 3673 Oct, [facility] [id number] [place] [address] 08606- 2047 Oct, PTSD (post-traumatic stress disorder) F43.10 and Bipolar I disorder with depression F31.9 [facility] [id number] [place] [address] 90578- 5782 Oct, PTSD (post-traumatic stress disorder) F43.10 ; Mood disorder F39 and Obsessive-compulsive disorder, unspecified type F42.9 [facility] [id number] [place] [address] 51930- 2562 Sep, PTSD (post-traumatic stress disorder) F43.10 and Bipolar I disorder with depression F31.9 [facility] [id number] [place] [address] 93825- 8773 Sep, PTSD (post-traumatic stress disorder) F43.10 ; Mood disorder F39 and Obsessive-compulsive disorder, unspecified type F42.9 [facility] [address] [place] [address] 48297- 1087 Sep, PTSD (post-traumatic stress disorder) F43.10 and Bipolar I disorder with depression F31.9 [facility] [address] [place] [address] 57865- 9660 Sep, PTSD (post-traumatic stress disorder) F43.10 and Bipolar I disorder with depression F31.9 [facility] [id number] [place] [address] 73118- 5274 August, PTSD (post-traumatic stress disorder) F43.10 and Bipolar I disorder with depression F31.9 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.899 [facility] [address], [place] [address]- 8055 August, PTSD (post-traumatic stress disorder) F43.10 and Bipolar I disorder with depression F31.9 [facility] [id number] [address]- 3706 Jul, PTSD (post-traumatic stress disorder) F43.10 and Bipolar I disorder with depression F31.9 [facility] [id number] [place] [address] 65259- 4669 Jul, PTSD (post-traumatic stress disorder) F43.10 and Bipolar I disorder with depression F31.9 [place] [id number] [place] [address] 59277- 6884 Jul, PTSD (post-traumatic stress disorder) F43.10 and Bipolar I disorder with depression F31.9 [place] [address] [place] [address] 16974- 3566 Jul, [place] 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.899 [facility] [id number], [place] [address]- 6482 Jun, PTSD (post-traumatic stress disorder) F43.10 and Bipolar I disorder with depression F31.9 [facility] [id number], [place] [address]- 7262 Jun, Bipolar 1 disorder, mixed F31.60 ; PTSD (post-traumatic stress disorder) F43.10 and [facility] [place] [facility] 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.899 [facility] [id number], [place] [address]- 7209 Jun, PTSD (post-traumatic stress disorder) F43.10 and Depression , unspecified depression type F32.9 [place] [id number] [place] [address] 88773- 3735 Jun, PTSD (post-traumatic stress disorder) F43.10 and Depression , unspecified depression type F32.9 [place] [id number] [place] [address] 88201- 0725 Jun, PTSD (post-traumatic stress disorder) F43.10 and Depression , unspecified depression type F32.9 [facility] [address] 81194 -5772 May, Fever, unspecified fever cause R50.9 and Gastroenteritis K52.9 [place] [address] 35893- 1529 Mar, Sprain of other ligament of right ankle, subsequent encounter S93.491D [place] [address] 61064- 3451 Mar, [facility] [place] [address] 57370 -4842 Feb, Scabies infestation B86 [place] [address] 23722- 1009 Feb, Dental caries K02.9 [place] [address] 07594- 8038 Jan, [facility] [place] [address] 10798 -0857 Jan, Pharyngitis, unspecified etiology J02.9 [place] [address] 27975- 4325 Jan, [place] [address] 56595- 7807 Jan, Bipolar affective disorder, remission status unspecified F31.9 [place] [address] 22798- 0692 Jan, Encounter for dental examination and cleaning without abnormal findings Z01.20 [facility] [id number] [place] [address] 65778- 7415 Jan, Bipolar affective disorder, remission status unspecified F31.9 [facility] [id number] [place] [address] 67712- 7846 29 Dec, 2015 Bipolar affective disorder, remission status unspecified F31.9 and Depression, unspecified depression type F32.9 [facility] [id number] [place] [address] 06540- 7486 Dec, Unspecified mood [affective] disorder F39 and Generalized anxiety disorder F41.1 [place] [id number] [place] [address] 23266- 0197 08 Dec, 2015 Depression, unspecified depression type F32.9 [place] [id number] [place] [address] 12934- 0804 Nov, Dental caries K02.9 [place] [id number] [place] [address] 61945- 4951 Nov, Dental examination Z01.20 [facility] [id number] [place] [address] 26833- 1546 Sep, Bipolar affective disorder, remission status unspecified F31.9 [place] [id number] [place] [address] 54953- 0272 August, Tension headache G44.209 [facility] [id number] [place] [address] 54971 -4374 Jul, [facility] [id number] [place] [address] 69784 -6845 Jul, Upper respiratory infection J06.9 and Gastroenteritis K52.9 [facility] [id number] [place] [address] 40956- 7403 Jun, Bronchitis J40 [facility] [address] 60988 -9372 Feb, Thoracic back pain M54.6 and Left shoulder pain M25.512 [facility] [address]- 5506 05 Feb, 2015 [facility] [address] [facility] [id number], [place] [address]- 2204 14 Jul, 2014 [facility] [address] [facility] [id number] 7381 Jul, [facility] [address] [facility] [id number], [place] [address]- 3452 Apr, [facility] [address] [place] [address], [place] [address]- 2865 Apr, [facility] [id number] [address]- 6830 Apr, [facility] [address], [place] [address]- 3093 Apr, [facility] [id number], [place] [address]- 2506 Mar, [facility] [address], [place] [address]- 7488 Mar, [facility] [address], [place] [address]- 7613 Mar, [facility] [address], [place] [address]- 7009 Mar, [facility] [id number]- 0463 Feb, [facility] [address] 5793 Feb, [facility] [address] [facility] [id number], [place] [address]- 0597 Feb, [facility] [address], [place] [address]- 0247 Feb, [facility] [place] [facility] [address] [id number] [place] [address]- 5527 15 Jan, 2014 [facility] [place] [facility] [address] [id number] [place] [address]- 5840 15 Jan, 2014 [facility] [place] [facility] [address] [id number] [place] [address]- 2503 14 Jan, 2014 [facility] [place] [facility] [address] [id number] [place] [address]- 1041 14 Jan, 2014 [facility] [place] [facility] [address] [id number] [place] [address]- 7518 Jan, [facility] [place] [facility] [address] [id number] [place] [address]- 0196 Jan, [facility] [place] [facility] [address] [id number] [place] [address]- 5648 15 Dec, 2013 [facility] [place] [facility] [address] [id number] [place] [address]- 3160 Dec, [facility] [place] [facility] [address] [id number] [place] [address]- 6961 Nov, [facility] [place] [facility] [address] [id number] [place] [address]- 5077 Nov, [facility] [place] [facility] [address] [id number], [place] [address]- 5857 Nov, [facility] [place] [facility] [address] [id number], [place] [address]- 1411 Nov, [facility] [place] [facility] [address] [id number] [place] [address]- 8212 Nov, [facility] [place] [facility] [address] [id number] [place] [address]- 2059 Nov, [facility] [place] [facility] [address] [id number] [place] [address]- 1103 Nov, [facility] [place] [facility] [address] [id number] [place] [address] Nov, [facility] [place] [facility] [address] [id number] [place] [address] Nov, [facility] [place] [facility] [address] [id number] [place] [address] Oct, [facility] [place] [facility] [address] [id number] [place] [address] Oct, [facility] [place] [facility] [address] [id number] [place] [address] Oct, [facility] [place] [facility] [address] [id number] [place] [address] Oct, [facility] [place] [facility] [address] [id number] [place] [address] Oct, [facility] [place] [facility] [address] [id number] [place] [address] Oct, [facility] [place] [facility] [address] [id number] [place] [address] Oct, [facility] [place] [facility] [address] [id number] [place] [address] Oct, [facility] [place] [facility] [address] [id number] [place] [address] Oct, [facility] [place] [facility] [address] [id number] [place] [address] Oct, [facility] [place] [facility] [address] [id number] [place] [address] Oct, [facility] [place] [facility] [address] [id number] [place] [address] Oct, [facility] [place] [facility] [address] [id number] [place] [address] Oct, [facility] [place] [facility] [address] [id number] [place] [address] Oct, [facility] [place] [facility] [address] [id number] [place] [address] Oct, 2013 [facility] [place] [facility] [address] [id number] [place] [address] Oct, [facility] [place] [facility] [address] [id number] [place] [address] Oct, [facility] [place] [facility] [address] [id number] [place] [address] Oct, [facility] [place] [facility] [address] [id number] [place] [address] Oct, [facility] [place] [facility] [address] [id number] [place] [address] Sep, [facility] [place] [facility] [address] [id number] [place] [address] Sep, [facility] [place] [facility] [address] [id number] [place] [address] Sep, [facility] [place] [facility] [address] [id number] [place] [address] Sep, [facility] [place] [facility] [address] [id number] [place] [address] Feb, [facility] [place] [facility] [address] [id number] [place] [address] Feb, [facility] [place] [facility] [address] [id number] [place] [address] Dec, [facility] [place] [facility] [address] [id number] [place] [address] Dec, [facility] [place] [facility] [address] [id number] [place] [address] Nov, [facility] [place] [facility] [address] [id number] [place] [address] Nov, [facility] [place] [facility] [address] [id number] [place] [address] Nov, [facility] [place] [facility] [address] [id number] [place] [address] Nov, [facility] [place] [facility] [address] [id number] [place] [address] Nov, [facility] [place] [facility] [address] [id number] [place] [address] Nov, [facility] [place] [facility] [address] [id number] [place] [address] Oct, [facility] [place] [facility] [address] [id number] [place] [address] Apr, [facility] [place] [facility] [address] [id number] [place] [address] August, [facility] [place] [facility] [address] [id number] [place] [address] August, [facility] [place] [facility] [address] [id number] [place] [address] August, [facility] [place] [facility] [address] [id number] [place] [address] Jul, [facility] [place] [facility] [address] [id number] [place] [address] Jun, [facility] [place] [facility] [address] [id number] [place] [address] Jun, [facility] [place] [facility] [address] [id number] [place] [address] Jun, [facility] [place] [facility] [address] [id number] [place] [address] Jun, [facility] [place] [facility] [address] [id number] [place] [address] Jun, [facility] [place] [facility] [address] [id number] [place] [address] Jun, [facility] [place] [facility] [address] [id number] [place] [address] 21 May, 2011 [facility] [address] [id number] [place] [address] 16 May, 2011 [facility] [place] [facility] [address] [id number] [place] [address] 09 May, 2011 [facility] [place] [facility] [address] [id number] [place] [address] 07 May, 2011 [facility] [place] [facility] [address] [id number] [place] [address] 06 May, 2011 [facility] [place] [facility] [address] [id number] [place] [address] 06 May, 2011 [facility] [address] [facility] [id number] [place] [address] Apr, [facility] [place] [facility] [address] [facility] [id number] [place] [address] Mar, [facility] [place] [facility] [address] [facility] [id number] [place] [address] Mar, [facility] [place] [facility] [address] [facility] [id number] [place] [address] Feb, [facility] [place] [facility] [address] [facility] [id number] [place] [address] Jan, [facility] [place] [facility] [address] [facility] [id number] [place] [address] 31 Mar, 2009 [facility] [place] [facility] [address] [id number] [place] [address] 15 Mar, 2009 [facility] [place] [facility] [address] [facility] [id number] [place] [address] 10 Mar, 2009 [facility] [place] [facility] [address] [id number] [place] [address] 10 Mar, 2009 [facility] [place] [facility] [address] [id number] [place] [address] Mar, [facility] [address] [facility] [id number] [place] [address] Feb, [facility] [address] [facility] [id number], [place] [address] Feb, [facility] [address] [facility] [id number], [place] [address] Nov, [facility] [address] [facility] [id number], [place] [address] May, IMMUNIZATIONS No Known Immunizations SOCIAL HISTORY Never Assessed REASON FOR VISIT f/uRosemary GA PLAN OF CARE Activity Details Follow Up 6 Weeks, prn Reason: VITAL SIGNS Height 64 in 2017-08-05 Weight 293.3 lbs 2017-08-05 Heart Rate 88 bpm 2017-08-05 Respiratory Rate 18 2017-08-05 BMI 50.34 kg/m2 2017-08-05 Blood pressure systolic 144 mmHg 2017-08-05 Blood pressure diastolic 92 mmHg 2017-08-05 MEDICATIONS Medication Instructions Dosage Frequency Start Date End Date Duration Status Sprintec 28 0.25-35 MG-MCG Orally Once a day 1 tablet 24h Dec, 30 day(s) Active Latuda 80 MG Orally Once a day at supper with food 1 tablet 30 days Active Restoril 15 MG Orally Once a day 1 capsule at bedtime as needed 24h Jun 30 days Active Propranolol HCl 10 MG Orally Twice a day 1 tablet 12h Jul, 30 day(s) Active RESULTS No Results PROCEDURES No Known procedures INSTRUCTIONS MEDICATIONS ADMINISTERED No Known Medications MEDICAL (GENERAL) HISTORY Type Description Date Medical History HELP syndrome Medical History bi-polar Medical History hypertension Medical History hx of seizure x1, isolated Surgical History gallbladder 10/2013 Surgical History 03/2014 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
--- OUTSIDE RECORDS SUMMARY | 2017-12-25 20:12 | XMS REPORT ---
Author Author MARIANO REDDY Organization [facility] Address [address] [place] [address] Care Team Providers Care Floor Coverer Name Role Phone MARIANO REDDY Unavailable PROBLEMS Type Condition ICD9-CM Code KUX11-FY Code Onset Dates Condition Status SNOMED Code Problem Bipolar I disorder with depression F31.9 Active 87681918 Problem Amenorrhea N91.2 Active 49444992 Problem Social anxiety disorder F40.10 Active 08057919 Problem Obsessive-compulsive disorder, unspecified type F42.9 Active 321186156 Problem PTSD (post-traumatic stress disorder) F43.10 Active 19313998 Problem Mood disorder F39 Active 93169900 Problem 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 Active [id number] ALLERGIES No Information ENCOUNTERS Encounter Location Date Diagnosis [facility] [id number] [place] [address] 07442- 4263 Nov, [facility] [address] 50166- 8087 Nov, [facility] [id number] [place] [address] 87710- 1196 Nov, [facility] [id number] [place] [address] 20057- 0510 Oct, PTSD (post-traumatic stress disorder) F43.10 and Bipolar I disorder with depression F31.9 [facility] [id number] [place] [address] 68774- 3303 Oct, [facility] [address] 86785- 8052 Oct, PTSD (post-traumatic stress disorder) F43.10 and Bipolar I disorder with depression F31.9 [facility] [address] [place] [address]- 7529 Oct, [facility] [address], [place] [address] 47[address] Sep, Bipolar I disorder with depression F31.9 [facility] [address], [place] [address] 4071 Sep, Bipolar I disorder with depression F31.9 ; PTSD (post- traumatic stress disorder) F43.10 ; 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 ; Social anxiety disorder F40.10 and BMI 50.0-59.9, adult Z68.43 [place] [address] [place] [address] 02546- 8685 Sep, PTSD (post-traumatic stress disorder) F43.10 and Bipolar I disorder with depression F31.9 [place] [address], [place] [address] 84[address] Sep, PTSD (post-traumatic stress disorder) F43.10 and Bipolar I disorder with depression F31.9 [place] [address], [place] [address] 66[address] August, PTSD (post-traumatic stress disorder) F43.10 and Bipolar I disorder with depression F31.9 [place] [address], [place] [address]- 69[address] August, Bipolar I disorder with depression F31.9 ; PTSD (post- traumatic stress disorder) F43.10 ; 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 ; Social anxiety disorder F40.10 and BMI 50.0-59.9, adult Z68.43 [facility] [address], [place] [address] August, [facility] [address], [place] [address] 49[address] August, Bipolar I disorder with depression F31.9 ; PTSD (post- traumatic stress disorder) F43.10 ; 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 ; Social anxiety disorder F40.10 and BMI 50.0-59.9, adult Z68.43 [facility] [address], [place] [address]- 9661 August, [facility] [id number] [place] [address] 97347- 7565 August, [place] [address] [place] [address] 86726- 9182 August, PTSD (post-traumatic stress disorder) F43.10 and Bipolar I disorder with depression F31.9 [facility] [address] [place] [address] 61216- 2233 August, [place] [address] [place] [address] 04479- 4601 Jul, Bipolar I disorder with depression F31.9 ; PTSD (post- traumatic stress disorder) F43.10 ; 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 ; Social anxiety disorder F40.10 and BMI 50.0-59.9, adult Z68.43 [facility] [address] [place] [address] 55666- 4212 Jul, PTSD (post-traumatic stress disorder) F43.10 and Bipolar I disorder with depression F31.9 [place] [address] [place] [address] 11852- 6304 Jul, Pelvic pain R10.2 ; Amenorrhea N91.2 and BMI 50.0-59.9, adult Z68.43 [facility] [address], [place] [address]- 9430 Jun, BMI 50.0-59.9, adult Z68.43 ; Bipolar I disorder with depression F31.9 ; PTSD (post-traumatic stress disorder) F43.10 and 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 [facility] [address], [place] [address] Jun, Other viral agents as the cause of diseases classified elsewhere B97.89 ; Other specified respiratory disorders J98.8 ; Bronchitis J40 and Cough R05 [facility] [address], [place] [address]- 3556 13 Jun, 2017 PTSD (post-traumatic stress disorder) F43.10 [facility] [address], [place] [address]- 3176 13 Jun, 2017 PTSD (post-traumatic stress disorder) F43.10 and Bipolar I disorder with depression F31.9 [facility] [address] [place] [address] 53176- 3676 13 May, 2017 PTSD (post-traumatic stress disorder) F43.10 and Bipolar I disorder with depression F31.9 [place] [address] [place] [address] 93992- 0246 12 May, 2017 [place] [address] [place] [address] 00697- 9516 07 May, 2017 PTSD (post-traumatic stress disorder) F43.10 and Bipolar I disorder with depression F31.9 [place] [address] [place] [address] 70877- 6835 Apr, PTSD (post-traumatic stress disorder) F43.10 and Bipolar I disorder with depression F31.9 [place] [address], [place] [address]- 3310 Apr, PTSD (post-traumatic stress disorder) F43.10 and Bipolar I disorder with depression F31.9 [place] [address], [place] [address]- 8787 Mar, PTSD (post-traumatic stress disorder) F43.10 ; Obsessive- compulsive disorder, unspecified type F42.9 ; Bipolar I disorder with depression F31.9 and Other jail (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.899 [place] [address], [place] [address]- [address] Mar, PTSD (post-traumatic stress disorder) F43.10 and Bipolar I disorder with depression F31.9 [place] [address], [place] [address]- 6817 Feb, PTSD (post-traumatic stress disorder) F43.10 and Bipolar I disorder with depression F31.9 [facility] [address], [place] [address]- 2339 Feb, PTSD (post-traumatic stress disorder) F43.10 and Bipolar I disorder with depression F31.9 [facility] [address] [place] [address] 47490 -0450 Jan, Strep pharyngitis J02.0 [facility] [address] [place] [address] 98264- 8742 Jan, [facility] [address] [place] [address] 47529- 2595 Jan, [facility] [address] [place] [address] 23458- 5516 Jan, PTSD (post-traumatic stress disorder) F43.10 and Bipolar I disorder with depression F31.9 [facility] [address] [place] [address] 10874- 5210 05 Jan, 2017 PTSD (post-traumatic stress disorder) F43.10 and Bipolar I disorder with depression F31.9 [facility] [address], [place] [address]- 5931 Jan, Other jail (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.899 [facility] [address] [place] [address] 16178- 8164 02 Jan, 2017 PTSD (post-traumatic stress disorder) F43.10 ; Obsessive- compulsive disorder, unspecified type F42.9 ; Bipolar I disorder with depression F31.9 and Other jail (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.899 [facility] [address], [place] [address]- 8188 27 Dec, 2016 Encounter for IUD removal Z30.432 and control counseling Z30.09 [facility] [address], [place] [address]- 9018 Dec, PTSD (post-traumatic stress disorder) F43.10 ; Obsessive- compulsive disorder, unspecified type F42.9 and Bipolar I disorder with depression F31.9 [facility] [address], [place] [address]- 5277 Dec, PTSD (post-traumatic stress disorder) F43.10 and Bipolar I disorder with depression F31.9 [facility] [address], [place] [address]- 4829 Dec, PTSD (post-traumatic stress disorder) F43.10 and Bipolar I disorder with depression F31.9 [facility] [address] [place] [address] 88164- 4157 Dec, Mood disorder F39 [facility] [address] [place] [address] 40300- 2558 Dec, PTSD (post-traumatic stress disorder) F43.10 ; Mood disorder F39 and Obsessive-compulsive disorder, unspecified type F42.9 [facility] [address], [place] [address]- 8895 Dec, PTSD (post-traumatic stress disorder) F43.10 and Bipolar I disorder with depression F31.9 [facility] [id number], [place] [address] Dec, Adverse drug reaction, initial encounter T88.7XXA [facility] [address], [place] [address]- 2612 Dec, [facility] [address] [place] [address] 11673- 1475 Nov, PTSD (post-traumatic stress disorder) F43.10 and Bipolar I disorder with depression F31.9 [facility] [address], [place] [address]- 2006 Nov, PTSD (post-traumatic stress disorder) F43.10 ; Mood disorder F39 and Obsessive-compulsive disorder, unspecified type F42.9 [facility] [id number], [place] [address]- 7116 Nov, PTSD (post-traumatic stress disorder) F43.10 and Bipolar I disorder with depression F31.9 [facility] [id number], [place] [address]- 7516 Nov, PTSD (post-traumatic stress disorder) F43.10 and Bipolar I disorder with depression F31.9 [facility] [address] [facility] [id number] [address] Nov, [facility] [id number] [place] [address] 00895- 6943 Nov, PTSD (post-traumatic stress disorder) F43.10 and Bipolar I disorder with depression F31.9 [facility] [address] [place] [address] 15138- 9870 Nov, PTSD (post-traumatic stress disorder) F43.10 and Bipolar I disorder with depression F31.9 [facility] [id number], [place] [address]- 4786 Oct, [facility] [id number] [place] [address] 21708- 1386 Oct, PTSD (post-traumatic stress disorder) F43.10 ; Mood disorder F39 and Obsessive-compulsive disorder, unspecified type F42.9 [facility] [id number], [place] [address]- 8400 Oct, PTSD (post-traumatic stress disorder) F43.10 and Bipolar I disorder with depression F31.9 [facility] [id number], [place] [address]- 7333 Oct, PTSD (post-traumatic stress disorder) F43.10 and Bipolar I disorder with depression F31.9 [facility] [id number], [place] [address]- 3576 Oct, PTSD (post-traumatic stress disorder) F43.10 ; Mood disorder F39 and Obsessive-compulsive disorder, unspecified type F42.9 [facility] [address] [place] [address] 04325- 7342 Oct, [facility] [address] [place] [address] 98620- 4930 Oct, PTSD (post-traumatic stress disorder) F43.10 and Bipolar I disorder with depression F31.9 [facility] [address] [place] [address] 62226- 0680 Oct, PTSD (post-traumatic stress disorder) F43.10 ; Mood disorder F39 and Obsessive-compulsive disorder, unspecified type F42.9 [facility] [address] [place] [address] 23694- 7262 Sep, PTSD (post-traumatic stress disorder) F43.10 and Bipolar I disorder with depression F31.9 [facility] [address] [place] [address] 94567- 6250 Sep, PTSD (post-traumatic stress disorder) F43.10 ; Mood disorder F39 and Obsessive-compulsive disorder, unspecified type F42.9 [facility] [address] [place] [address] 83718- 6504 Sep, PTSD (post-traumatic stress disorder) F43.10 and Bipolar I disorder with depression F31.9 [facility] [address] [place] [address] 79493- 8059 Sep, PTSD (post-traumatic stress disorder) F43.10 and Bipolar I disorder with depression F31.9 [facility] [address] [place] [address] 34693- 7561 August, PTSD (post-traumatic stress disorder) F43.10 and Bipolar I disorder with depression F31.9 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.899 [facility] [address], [place] [address]- 8796 August, PTSD (post-traumatic stress disorder) F43.10 and Bipolar I disorder with depression F31.9 [facility] [id number], [place] [address]- 1161 Jul, PTSD (post-traumatic stress disorder) F43.10 and Bipolar I disorder with depression F31.9 [facility] [id number] [place] [address] 46221- 5128 Jul, PTSD (post-traumatic stress disorder) F43.10 and Bipolar I disorder with depression F31.9 [place] [address] [place] [address] 45656- 8435 Jul, PTSD (post-traumatic stress disorder) F43.10 and Bipolar I disorder with depression F31.9 [place] [address] [place] [address] 09713- 1666 Jul, Other jail (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.899 [facility] [id number], [place] [address]- 2300 Jun, PTSD (post-traumatic stress disorder) F43.10 and Bipolar I disorder with depression F31.9 [facility] [id number], [place] [address]- 0167 Jun, Bipolar 1 disorder, mixed F31.60 ; PTSD (post-traumatic stress disorder) F43.10 and Other jail (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.899 [facility] [id number], [place] [address]- 5519 Jun, PTSD (post-traumatic stress disorder) F43.10 and Depression , unspecified depression type F32.9 [place] [address] [place] [address] 57761- 1268 Jun, PTSD (post-traumatic stress disorder) F43.10 and Depression , unspecified depression type F32.9 [place] [address] [place] [address] 45008- 1604 Jun, PTSD (post-traumatic stress disorder) F43.10 and Depression , unspecified depression type F32.9 [facility] [address] 63319 -1126 May, Fever, unspecified fever cause R50.9 and Gastroenteritis K52.9 [place] [address] 24036- 8262 Mar, Sprain of other ligament of right ankle, subsequent encounter S93.491D [place] [address] 38653- 2373 Mar, [facility] [place] [address] 24705 -5975 Feb, Scabies infestation B86 [place] [address] 94718- 1583 Feb, Dental caries K02.9 [place] [address] 96861- 9308 Jan, [facility] [place] [address] 07762 -3159 Jan, Pharyngitis, unspecified etiology J02.9 [place] [address] 06569- 6148 Jan, [place] [address] 28528- 6734 Jan, Bipolar affective disorder, remission status unspecified F31.9 [place] [address] 96271- 1439 Jan, Encounter for dental examination and cleaning without abnormal findings Z01.20 [facility] [address] [place] [address] 03406- 4257 Jan, Bipolar affective disorder, remission status unspecified F31.9 [facility] [address] [place] [address] 79787- 4664 29 Dec, 2015 Bipolar affective disorder, remission status unspecified F31.9 and Depression, unspecified depression type F32.9 [facility] [address] [place] [address] 29270- 3284 Dec, Unspecified mood [affective] disorder F39 and Generalized anxiety disorder F41.1 [place] [address] [place] [address] 88763- 5811 08 Dec, 2015 Depression, unspecified depression type F32.9 [place] [address] [place] [address] 43243- 1214 Nov, Dental caries K02.9 [place] [address] [place] [address] 61446- 4055 Nov, Dental examination Z01.20 [facility] [address] [place] [address] 26453- 4892 Sep, Bipolar affective disorder, remission status unspecified F31.9 [place] [address] [place] [address] 74240- 5070 August, Tension headache G44.209 [facility] [address] [place] [address] 23312 -1496 Jul, [facility] [address] [place] [address] 91012 -1317 Jul, Upper respiratory infection J06.9 and Gastroenteritis K52.9 [facility] [address] [place] [address] 14127- 2059 Jun, Bronchitis J40 [facility] [address] 64900 -6935 Feb, Thoracic back pain M54.6 and Left shoulder pain M25.512 [facility] [address]- 5476 05 Feb, 2015 [facility] [address] [facility] [id number], [place] [address]- 9785 14 Jul, 2014 [facility] [address] [facility] [id number]- 6545 Jul, [facility] [address] [facility] [id number], [place] [address]- 9252 Apr, [facility] [address] [place] [address], [place] [address]- 5656 Apr, [facility] [id number], [place] [address]- 2149 Apr, [facility] [address], [place] [address]- 4931 Apr, [facility] [id number], [place] [address]- 6450 Mar, [facility] [address], [place] [address]- 3848 Mar, [facility] [address], [place] [address]- 2978 Mar, [facility] [address], [place] [address]- 4529 Mar, [facility] [id number] 5469 Feb, [facility] [address] 2701 Feb, [facility] [address] [facility] [id number], [place] [address]- 6569 Feb, [facility] [address], [place] [address]- 3496 Feb, [facility] [place] [facility] [address] [id number] [place] [address]- 1939 15 Jan, 2014 [facility] [place] [facility] [address] [id number] [place] [address]- 3308 15 Jan, 2014 [facility] [place] [facility] [address] [id number] [place] [address]- 7854 14 Jan, 2014 [facility] [place] [facility] [address] [id number] [place] [address]- 1351 14 Jan, 2014 [facility] [place] [facility] [address] [id number] [place] [address]- 3495 Jan, [facility] [place] [facility] [address] [id number] [place] [address]- 4930 Jan, [facility] [place] [facility] [address] [id number] [place] [address]- 7848 15 Dec, 2013 [facility] [place] [facility] [address] [id number] [place] [address]- 5138 Dec, [facility] [place] [facility] [address] [id number] [place] [address]- 8431 Nov, [facility] [place] [facility] [address] [id number] [place] [address]- 0071 Nov, [facility] [place] [facility] [address] [id number], [place] [address]- 4117 Nov, [facility] [place] [facility] [address] [id number], [place] [address]- 1938 Nov, [facility] [place] [facility] [address] [id number] [place] [address]- 2063 Nov, [facility] [place] [facility] [address] [id number] [place] [address]- 3007 Nov, [facility] [place] [facility] [address] [id number] [place] [address]- 2149 Nov, [facility] [place] [facility] [address] [id number] [place] [address]- 3308 Nov, [facility] [place] [facility] [address] [id number] [place] [address]- 4073 Nov, [facility] [place] [facility] [address] [id number] [place] [address]- 4794 Oct, [facility] [place] [facility] [address] [id number] [place] [address]- 9045 Oct, [facility] [place] [facility] [address] [id number] [place] [address]- 0190 Oct, [facility] [place] [facility] [address] [id number] [place] [address] Oct, [facility] [place] [facility] [address] [id number] [place] [address] Oct, [facility] [place] [facility] [address] [id number] [place] [address] Oct, [facility] [place] [facility] [address] [id number] [place] [address] Oct, [facility] [place] [facility] [address] [id number] [place] [address] Oct, [facility] [place] [facility] [address] [id number] [place] [address] Oct, [facility] [place] [facility] [address] [id number] [place] [address] Oct, [facility] [place] [facility] [address] [id number] [place] [address] Oct, [facility] [place] [facility] [address] [id number] [place] [address] Oct, [facility] [place] [facility] [address] [id number] [place] [address] Oct, [facility] [place] [facility] [address] [id number] [place] [address] [address] Oct, [facility] [place] [facility] [address] [id number] [place] [address] Oct, 2013 [facility] [place] [facility] [address] [id number] [place] [address] Oct, [facility] [place] [facility] [address] [id number] [place] [address] Oct, [facility] [place] [facility] [address] [id number] [place] [address] Oct, [facility] [place] [facility] [address] [id number] [place] [address] Oct, [facility] [place] [facility] [address] [id number] [place] [address]- [address] Sep, [facility] [place] [facility] [address] [id number] [place] [address] Sep, [facility] [place] [facility] [address] [id number] [place] [address] Sep, [facility] [place] [facility] [address] [id number] [place] [address] Sep, [facility] [place] [facility] [address] [id number] [place] [address] Feb, [facility] [place] [facility] [address] [id number] [place] [address] Feb, [facility] [place] [facility] [address] [id number] [place] [address] Dec, [facility] [place] [facility] [address] [id number] [place] [address] Dec, [facility] [place] [facility] [address] [id number] [place] [address] Nov, [facility] [place] [facility] [address] [id number] [place] [address] Nov, [facility] [place] [facility] [address] [id number] [place] [address] Nov, [facility] [place] [facility] [address] [id number] [place] [address] Nov, [facility] [place] [facility] [address] [id number] [place] [address] Nov, [facility] [place] [facility] [address] [id number] [place] [address] Nov, [facility] [place] [facility] [address] [id number] [place] [address] Oct, [facility] [place] [facility] [address] [id number] [place] [address] Apr, [facility] [place] [facility] [address] [id number] [place] [address] August, [facility] [place] [facility] [address] [id number] [place] [address] August, [facility] [place] [facility] [address] [id number] [place] [address] August, [facility] [place] [facility] [address] [id number] [place] [address] Jul, [facility] [place] [facility] [address] [id number] [place] [address] Jun, [facility] [place] [facility] [address] [id number] [place] [address] Jun, [facility] [place] [facility] [address] [id number] [place] [address] Jun, [facility] [place] [facility] [address] [id number] [place] [address] Jun, [facility] [place] [facility] [address] [id number] [place] [address] Jun, [facility] [place] [facility] [address] [id number] [place] [address] Jun, [facility] [place] [facility] [address] [id number] [place] [address] 21 May, 2011 [facility] [address] [id number] [place] [address] 16 May, 2011 [facility] [place] [facility] [address] [id number] [place] [address] 09 May, 2011 [facility] [place] [facility] [address] [id number] [place] [address] 07 May, 2011 [facility] [place] [facility] [address] [id number] [place] [address] 06 May, 2011 [facility] [place] [facility] [address] [id number] [place] [address] 06 May, 2011 [facility] [address] [facility] [id number] [place] [address] Apr, [facility] [place] [facility] [address] [facility] [id number] [place] [address] Mar, [facility] [place] [facility] [address] [facility] [id number] [place] [address] Mar, [facility] [place] [facility] [address] [facility] [id number] [place] [address] Feb, [facility] [place] [facility] [address] [facility] [id number] [place] [address] Jan, [facility] [place] [facility] [address] [facility] [id number] [place] [address] 31 Mar, 2009 [facility] [place] [facility] [address] [id number] [place] [address] 15 Mar, 2009 [facility] [place] [facility] [address] [facility] [id number] [place] [address] 10 Mar, 2009 [facility] [place] [facility] [address] [id number] [place] [address] 10 Mar, 2009 [facility] [place] [facility] [address] [id number] [place] [address] Mar, [facility] [address] [facility] [id number] [place] [address] Feb, [facility] [id number], [place] [address] Feb, [facility] [address] [id number], [place] [address] Nov, [facility] [address] [id number], [place] [address] May, IMMUNIZATIONS No Known Immunizations SOCIAL HISTORY Never Assessed REASON FOR VISIT medication PLAN OF CARE VITAL SIGNS MEDICATIONS Unknown Medications RESULTS No Results PROCEDURES No Known procedures INSTRUCTIONS MEDICATIONS ADMINISTERED No Known Medications MEDICAL (GENERAL) HISTORY Type Description Date Medical History HELP syndrome Medical History bi-polar Medical History hypertension Medical History hx of seizure x1, isolated Surgical History gallbladder 10/2013 Surgical History 03/2014 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
--- OUTSIDE RECORDS SUMMARY | 2017-12-25 20:13 | XMS REPORT ---
Author Author OLY DURBIN [facility] Address [address] [place] [address] Care Team Providers Care Ssds Mk 2 Advanced Operator Name Role Phone OLY DURBIN Unavailable PROBLEMS Type Condition ICD9-CM Code [id number] Code Onset Dates Condition Status SNOMED Code Problem Bipolar I disorder with depression F31.9 Active 49979360 Problem Amenorrhea N91.2 Active 71583050 Problem Social anxiety disorder F40.10 Active 49141521 Problem Obsessive-compulsive disorder, unspecified type F42.9 Active 632116411 Problem PTSD (post-traumatic stress disorder) F43.10 Active 54452297 Problem Mood disorder F39 Active 93007416 Problem 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 Active [id number] ALLERGIES No Information ENCOUNTERS Encounter Location Date Diagnosis [facility] [place] [id number] [place] [address] 56671- 3021 Nov, [facility] [place] [id number] [place] [address] 05794- 9066 Nov, [facility] [place] [id number] [place] [address] 15612- 7407 Nov, [facility] [place] [id number] [place] [address] 74437- 3267 Oct, PTSD (post-traumatic stress disorder) F43.10 and Bipolar I disorder with depression F31.9 [facility] [place] [id number] [place] [address] 27670- 2828 Oct, [facility] [place] [id number] [place] [address] 64148- 8884 Oct, PTSD (post-traumatic stress disorder) F43.10 and Bipolar I disorder with depression F31.9 [facility] [place] [id number] [place] [address] 82114- 9132 Oct, [facility] [place] [address] [address] Sep, Bipolar I disorder with depression F31.9 [facility] [place] [address] [place] [address] 2265 Sep, Bipolar I disorder with depression F31.9 ; PTSD (post- traumatic stress disorder) F43.10 ; 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 ; Social anxiety disorder F40.10 and BMI 50.0-59.9, adult Z68.43 [place] [id number] [address] 0[address] Sep, PTSD (post-traumatic stress disorder) F43.10 and Bipolar I disorder with depression F31.9 [place] [id number] [address] 5229 Sep, PTSD (post-traumatic stress disorder) F43.10 and Bipolar I disorder with depression F31.9 [place] [address] [address] 4110 August, PTSD (post-traumatic stress disorder) F43.10 and Bipolar I disorder with depression F31.9 [facility] [place] [address] [address] 6[address] August, Bipolar I disorder with depression F31.9 ; PTSD (post- traumatic stress disorder) F43.10 ; 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 ; Social anxiety disorder F40.10 and BMI 50.0-59.9, adult Z68.43 [facility] [place] [address] [address] 3[address] August, [facility] [place] [address] [place] [address] 47362- 4776 August, Bipolar I disorder with depression F31.9 ; PTSD (post- traumatic stress disorder) F43.10 ; 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 ; Social anxiety disorder F40.10 and BMI 50.0-59.9, adult Z68.43 [facility] [place] [address] [address] 1190 August, [facility] [place] [id number] [place] [address] 61653- 7481 August, [place] [id number] [place] [address] 09348- 1298 August, PTSD (post-traumatic stress disorder) F43.10 and Bipolar I disorder with depression F31.9 [facility] [place] [id number] [address] 3183 August, [place] [id number] [place] [address] 09112- 7880 Jul, Bipolar I disorder with depression F31.9 ; PTSD (post- traumatic stress disorder) F43.10 ; 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 ; Social anxiety disorder F40.10 and BMI 50.0-59.9, adult Z68.43 [facility] [place] [id number] [place] [address] 59559- 2689 Jul, PTSD (post-traumatic stress disorder) F43.10 and Bipolar I disorder with depression F31.9 [place] [address], [place] [address]- 8171 Jul, Pelvic pain R10.2 ; Amenorrhea N91.2 and BMI 50.0-59.9, adult Z68.43 [facility] [place] [address], [place] [address]- 0726 Jun, BMI 50.0-59.9, adult Z68.43 ; Bipolar I disorder with depression F31.9 ; PTSD (post-traumatic stress disorder) F43.10 and 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 [facility] [address], [place] [address] Jun, Other viral agents as the cause of diseases classified elsewhere B97.89 ; Other specified respiratory disorders J98.8 ; Bronchitis J40 and Cough R05 [facility] [place] [address], [place] [address]- 0886 13 Jun, 2017 PTSD (post-traumatic stress disorder) F43.10 [facility] [place] [address], [place] [address]- 7686 Jun, PTSD (post-traumatic stress disorder) F43.10 and Bipolar I disorder with depression F31.9 [facility] [place] [id number] [place] [address] 68801- 0276 13 May, 2017 PTSD (post-traumatic stress disorder) F43.10 and Bipolar I disorder with depression F31.9 [place] [id number] [place] [address] 46854- 3856 12 May, 2017 [place] [id number] [place] [address] 76489- 2426 07 May, 2017 PTSD (post-traumatic stress disorder) F43.10 and Bipolar I disorder with depression F31.9 [facility] [place] [address], [place] [address]- 0998 Apr, PTSD (post-traumatic stress disorder) F43.10 and Bipolar I disorder with depression F31.9 [place] [address], [place] [address]- 8946 Apr, PTSD (post-traumatic stress disorder) F43.10 and Bipolar I disorder with depression F31.9 [facility] [place] [address], [place] [address]- 2867 Mar, PTSD (post-traumatic stress disorder) F43.10 ; Obsessive- compulsive disorder, unspecified type F42.9 ; Bipolar I disorder with depression F31.9 and Other manager long term care (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.899 [facility] [place] [address], [place] [address]- 8808 Mar, PTSD (post-traumatic stress disorder) F43.10 and Bipolar I disorder with depression F31.9 [place] [address], [place] [address]- 8758 Feb, PTSD (post-traumatic stress disorder) F43.10 and Bipolar I disorder with depression F31.9 [facility] [place] [address] [place] [address] 85994- 5699 Feb, PTSD (post-traumatic stress disorder) F43.10 and Bipolar I disorder with depression F31.9 [facility] [id number] [place] [address] 74001 -2316 Jan, Strep pharyngitis J02.0 [facility] [place] [id number] [place] [address] 32614- 5380 Jan, [facility] [place] [id number] [place] [address] 46806- 4219 Jan, [place] [id number] [place] [address] 32138- 4995 Jan, PTSD (post-traumatic stress disorder) F43.10 and Bipolar I disorder with depression F31.9 [facility] [place] [id number] [place] [address] 86353- 8193 05 Jan, 2017 PTSD (post-traumatic stress disorder) F43.10 and Bipolar I disorder with depression F31.9 [facility] [place] [address], [place] [address]- 7782 Jan, Other manager long term care (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.899 [place] [address] [place] [address] 45731- 4085 02 Jan, 2017 PTSD (post-traumatic stress disorder) F43.10 ; Obsessive- compulsive disorder, unspecified type F42.9 ; Bipolar I disorder with depression F31.9 and Other senior care (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.899 [facility] [place] [address] [place] [address] 51464- 1481 27 Dec, 2016 Encounter for IUD removal Z30.432 and control counseling Z30.09 [place] [address] [place] [address]- 2149 Dec, PTSD (post-traumatic stress disorder) F43.10 ; Obsessive- compulsive disorder, unspecified type F42.9 and Bipolar I disorder with depression F31.9 [facility] [place] [address], [place] [address]- 9517 Dec, PTSD (post-traumatic stress disorder) F43.10 and Bipolar I disorder with depression F31.9 [facility] [place] [id number] [place] [address] 44465- 4818 Dec, PTSD (post-traumatic stress disorder) F43.10 and Bipolar I disorder with depression F31.9 [facility] [place] [id number] [place] [address] 22671- 5830 Dec, Mood disorder F39 [facility] [place] [id number] [place] [address] 76752- 0792 Dec, PTSD (post-traumatic stress disorder) F43.10 ; Mood disorder F39 and Obsessive-compulsive disorder, unspecified type F42.9 [facility] [place] [id number] [place] [address] 43543- 7029 Dec, PTSD (post-traumatic stress disorder) F43.10 and Bipolar I disorder with depression F31.9 [facility] [address], [place] [address] Dec, Adverse drug reaction, initial encounter T88.7XXA [facility] [place] [id number] [place] [address] 72081- 9237 Dec, [facility] [place] [address], [place] [address]- 5552 Nov, PTSD (post-traumatic stress disorder) F43.10 and Bipolar I disorder with depression F31.9 [facility] [place] [address] [address]- 8085 Nov, PTSD (post-traumatic stress disorder) F43.10 ; Mood disorder F39 and Obsessive-compulsive disorder, unspecified type F42.9 [facility] [place] [address] [facility] [id number] [address]- 6245 Nov, PTSD (post-traumatic stress disorder) F43.10 and Bipolar I disorder with depression F31.9 [facility] [place] [address] [facility] [id number] [address]- 8986 Nov, PTSD (post-traumatic stress disorder) F43.10 and Bipolar I disorder with depression F31.9 [facility] [address] [facility] [id number] [address] Nov, [facility] [place] [address] [facility] [id number] [place] [address] 33414- 2799 Nov, PTSD (post-traumatic stress disorder) F43.10 and Bipolar I disorder with depression F31.9 [facility] [place] [id number] [place] [address] 31203- 6276 Nov, PTSD (post-traumatic stress disorder) F43.10 and Bipolar I disorder with depression F31.9 [facility] [place] [address] [facility] [id number], [place] [address]- 8596 Oct, [facility] [place] [id number] [place] [address] 93590- 2036 Oct, PTSD (post-traumatic stress disorder) F43.10 ; Mood disorder F39 and Obsessive-compulsive disorder, unspecified type F42.9 [facility] [place] [id number], [place] [address]- 7539 Oct, PTSD (post-traumatic stress disorder) F43.10 and Bipolar I disorder with depression F31.9 [facility] [place] [address] [facility] [id number], [place] [address]- 1166 Oct, PTSD (post-traumatic stress disorder) F43.10 and Bipolar I disorder with depression F31.9 [facility] [place] [id number], [place] [address]- 9186 Oct, PTSD (post-traumatic stress disorder) F43.10 ; Mood disorder F39 and Obsessive-compulsive disorder, unspecified type F42.9 [facility] [place] [address], [place] [address]- 1199 Oct, [facility] [place] [address], [place] [address]- 0588 Oct, PTSD (post-traumatic stress disorder) F43.10 and Bipolar I disorder with depression F31.9 [facility] [place] [address] [place] [address] 18535- 1212 Oct, PTSD (post-traumatic stress disorder) F43.10 ; Mood disorder F39 and Obsessive-compulsive disorder, unspecified type F42.9 [facility] [place] [address], [place] [address]- 8473 Sep, PTSD (post-traumatic stress disorder) F43.10 and Bipolar I disorder with depression F31.9 [facility] [place] [address] [place] [address] 21319- 2189 Sep, PTSD (post-traumatic stress disorder) F43.10 ; Mood disorder F39 and Obsessive-compulsive disorder, unspecified type F42.9 [facility] [place] [id number] [place] [address] 46784- 4467 Sep, PTSD (post-traumatic stress disorder) F43.10 and Bipolar I disorder with depression F31.9 [facility] [place] [address], [place] [address]- 2799 Sep, PTSD (post-traumatic stress disorder) F43.10 and Bipolar I disorder with depression F31.9 [facility] [place] [address], [place] [address]- 7536 August, PTSD (post-traumatic stress disorder) F43.10 and Bipolar I disorder with depression F31.9 [facility] [address], [place] [address] August, Pharyngitis due to other organism J02.8 [facility] [place] [address], [place] [address]- 9646 August, PTSD (post-traumatic stress disorder) F43.10 ; Bipolar 1 disorder, mixed F31.60 and Other manager long term care (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.899 [facility] [place] [address], [place] [address]- 7131 August, PTSD (post-traumatic stress disorder) F43.10 and Bipolar I disorder with depression F31.9 [facility] [place] [address], [place] [address]- 6181 Jul, PTSD (post-traumatic stress disorder) F43.10 and Bipolar I disorder with depression F31.9 [facility] [place] [address], [place] [address]- 4048 Jul, PTSD (post-traumatic stress disorder) F43.10 and Bipolar I disorder with depression F31.9 [facility] [place] [address], [place] [address]- 3050 Jul, PTSD (post-traumatic stress disorder) F43.10 and Bipolar I disorder with depression F31.9 [facility] [place] [address], [place] [address]- 3876 Jul, Other senior care (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.899 [facility] [place] [address], [place] [address]- 6709 Jun, PTSD (post-traumatic stress disorder) F43.10 and Bipolar I disorder with depression F31.9 [facility] [place] [address], [place] [address]- 5452 Jun, Bipolar 1 disorder, mixed F31.60 ; PTSD (post-traumatic stress disorder) F43.10 and Other manager long term care (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.899 [facility] [place] [id number], [place] [address]- 0878 Jun, PTSD (post-traumatic stress disorder) F43.10 and Depression , unspecified depression type F32.9 [place] [id number] [place] [address] 02941- 1221 Jun, PTSD (post-traumatic stress disorder) F43.10 and Depression , unspecified depression type F32.9 [place] [id number] [place] [address] 96905- 4840 Jun, PTSD (post-traumatic stress disorder) F43.10 and Depression , unspecified depression type F32.9 [facility] [address] [address] -[address] May, Fever, unspecified fever cause R50.9 and Gastroenteritis K52.9 [place] [address] 35566- 3840 Mar, Sprain of other ligament of right ankle, subsequent encounter S93.491D [place] [address] 80681- 2499 Mar, [facility] [place] [address] [address]05 -9929 Feb, Scabies infestation B86 [place] [address] 63500- 0973 Feb, Dental caries K02.9 [place] [address] 71929- 4023 Jan, [facility] [place] [id number] [place] [address] 90609 -4686 Jan, Pharyngitis, unspecified etiology J02.9 [place] [id number] [place] [address] 80900- 4990 Jan, [place] [address] 51085- 1343 Jan, Bipolar affective disorder, remission status unspecified F31.9 [place] [address] 86867- 6849 Jan, Encounter for dental examination and cleaning without abnormal findings Z01.20 [facility] [place] [id number] [place] [address] 30613- 8401 Jan, Bipolar affective disorder, remission status unspecified F31.9 [facility] [place] [id number] [place] [address] 37106- 1093 29 Dec, 2015 Bipolar affective disorder, remission status unspecified F31.9 and Depression, unspecified depression type F32.9 [facility] [place] [id number] [place] [address] 41346- 5939 12 Dec, 2015 Unspecified mood [affective] disorder F39 and Generalized anxiety disorder F41.1 [place] [id number] [place] [address] 45085- 7325 08 Dec, 2015 Depression, unspecified depression type F32.9 [place] [id number] [place] [address] 09759- 6221 Nov, Dental caries K02.9 [place] [id number] [place] [address] 75763- 3549 Nov, Dental examination Z01.20 [place] [id number] [place] [address] 04984- 0083 24 Sep, 2015 Bipolar affective disorder, remission status unspecified F31.9 [place] [id number] [place] [address] 63839- 2396 August, Tension headache G44.209 [facility] [id number] [place] [address] 62230 -4269 Jul, [facility] [id number] [place] [address] 28660 -5256 Jul, Upper respiratory infection J06.9 and Gastroenteritis K52.9 [facility] [place] [id number] [place] [address] 09071- 3196 Jun, Bronchitis J40 [facility] [id number] [place] [address] 40165 -0904 Feb, Thoracic back pain M54.6 and Left shoulder pain M25.512 [facility] [address], [place] [address]- 0881 Feb, [facility] [address] [facility] [id number] [address]- 9196 14 Jul, 2014 [facility] [id number] [place] [address] 53424- 0538 Jul, [facility] [address] [facility] [id number] [place] [address] 59315- 7453 Apr, [facility] [id number] [place] [address] 53810- 5714 Apr, [facility] [id number] [place] [address] [id number]- [id number] Apr, [facility] [id number] [place] [address] [id number]- 2760 Apr, [facility] [id number] [address] Mar, [facility] [id number] [place] [address] 19878- 0662 Mar, [facility] [id number] [address] Mar, [facility] [id number] [address] Mar, [facility] [id number] [address] Feb, [facility] [id number] [place] [address] [id number] Feb, [facility] [address] [id number] [address] Feb, [facility] [id number] [place] [address] Feb, [facility] [place] [facility] [address] [id number] [place] [address] 15 Jan, 2014 [facility] [place] [facility] [address] [id number] [place] [address] 15 Jan, 2014 [facility] [place] [facility] [address] [id number] [place] [address] 14 Jan, 2014 [facility] [place] [facility] [address] [id number] [place] [address] 14 Jan, 2014 [facility] [place] [facility] [address] [id number] [place] [address] Jan, [facility] [place] [facility] [address] [id number] [place] [address] Jan, [facility] [place] [facility] [address] [id number] [place] [address]37 15 Dec, 2013 [facility] [place] [facility] [address] [id number] [place] [address] 125[address] Dec, [facility] [place] [facility] [address] [id number] [place] [address] Nov, [facility] [place] [facility] [address] [id number] [place] [address]041 Nov, [facility] [place] [facility] [address] [id number], [place] [address] Nov, [facility] [place] [facility] [address] [id number], [place] [address] Nov, [facility] [place] [facility] [address] [id number] [place] [address] 4199 Nov, [facility] [place] [facility] [address] [id number] [place] [address]- 0739 Nov, [facility] [place] [facility] [address] [id number], [place] [address] Nov, [facility] [place] [facility] [address] [id number], [place] [address] Nov, [facility] [place] [facility] [address] [id number] [place] [address]- 3764 Nov, [facility] [place] [facility] [address] [id number] [place] [address]- 8371 Oct, [facility] [place] [facility] [address] [id number] [place] [address]- 1748 Oct, [facility] [place] [facility] [address] [id number] [place] [address]- 6828 Oct, [facility] [place] [facility] [address] [id number] [place] [address] Oct, [facility] [place] [facility] [address] [id number] [place] [address]- 5307 Oct, [facility] [place] [facility] [address] [id number] [place] [address]- 6051 Oct, [facility] [place] [facility] [address] [id number] [place] [address]- 0392 Oct, [facility] [place] [facility] [address] [id number] [place] [address]- 7589 Oct, [facility] [place] [facility] [address] [id number] [place] [address]- 9682 Oct, [facility] [place] [facility] [address] [id number] [place] [address]- 5538 Oct, [facility] [place] [facility] [address] [id number] [place] [address]- 0363 Oct, [facility] [place] [facility] [address] [id number] [place] [address]- 8006 Oct, [facility] [place] [facility] [address] [id number] [place] [address]- 8784 Oct, [facility] [place] [facility] [address] [id number] [place] [address]- 7796 Oct, [facility] [place] [facility] [address] [id number] [place] [address]- 1662 Oct, [facility] [place] [facility] [address] [id number] [place] [address] Oct, [facility] [place] [facility] [address] [id number] [place] [address]- 4629 Oct, [facility] [place] [facility] [address] [id number] [place] [address]- 8296 Oct, [facility] [place] [facility] [address] [id number] [place] [address]- 6991 Oct, [facility] [place] [facility] [address] [id number] [place] [address]- 0395 Sep, [facility] [place] [facility] [address] [id number] [place] [address]- 4592 Sep, [facility] [place] [facility] [address] [id number] [place] [address]- 6017 Sep, [facility] [place] [facility] [address] [id number] [place] [address]- 5202 Sep, [facility] [place] [facility] [address] [id number] [place] [address]- 5661 Feb, [facility] [place] [facility] [address] [id number] [place] [address]- 9334 Feb, [facility] [place] [facility] [address] [id number] [place] [address]- 0336 Dec, [facility] [place] [facility] [address] [id number] [place] [address]- 1562 Dec, [facility] [place] [facility] [address] [id number] [place] [address]- 7582 Nov, [facility] [place] [facility] [address] [id number] [place] [address]- 2086 Nov, [facility] [place] [facility] [address] [id number] [place] [address]- 9828 Nov, [facility] [address] [id number] [place] [address]- 9394 Nov, [facility] [place] [facility] [address] [id number] [place] [address]- 1971 Nov, [facility] [place] [facility] [address] [id number] [place] [address]- 1642 Nov, [facility] [place] [facility] [address] [id number] [place] [address]- 2805 Oct, [facility] [place] [facility] [address] [id number] [place] [address]- 3578 Apr, [facility] [place] [facility] [address] [id number] [place] [address]- 1607 August, [facility] [place] [facility] [address] [id number] [place] [address]- 2759 August, [facility] [place] [facility] [address] [id number] [place] [address]- 0726 August, [facility] [place] [facility] [address] [id number] [place] [address]- 5024 Jul, [facility] [place] [facility] [address] [id number] [place] [address]- 3401 Jun, [facility] [place] [facility] [address] [id number] [place] [address]- 7725 Jun, [facility] [place] [facility] [address] [id number] [place] [address]- 9474 Jun, [facility] [place] [facility] [address] [id number] [place] [address]- 9867 Jun, [facility] [place] [facility] [address] [id number] [place] [address]- 2626 Jun, [facility] [place] [facility] [address] [id number] [place] [address]- 4347 Jun, [facility] [place] [facility] [address] [id number] [place] [address]- 6366 21 May, 2011 [facility] [address] [id number] [place] [address]- 0846 16 May, 2011 [facility] [place] [facility] [address] [id number] [place] [address]- 2546 09 May, 2011 [facility] [address] [id number] [place] [address]- 2546 07 May, 2011 [facility] [place] [facility] [address] [id number] [place] [address]- 2546 06 May, 2011 [facility] [address] [id number] [place] [address]- 8436 May, [facility] [address] [facility] [id number] [place] [address]- 2546 Apr, [facility] [address] [facility] [id number] [place] [address]- 7956 07 Mar, 2011 [facility] [address] [id number] [place] [address]- 3144 Mar, [facility] [address] [facility] [id number] [place] [address]- 3515 Feb, [facility] [address] [facility] [id number] [place] [address]- 9226 Jan, [facility] [address] [facility] [id number] [place] [address]- 2546 31 Mar, 2009 [facility] [place] [facility] [address] [id number] [place] [address]- 2546 15 Mar, 2009 [facility] [place] [facility] [address] [id number] [place] [address] 2546 Mar, [facility] [place] [facility] [address] [facility] [id number] [place] [address]- 2546 Mar, [facility] [place] [facility] [address] [facility] [id number] [place] [address]- 2546 Mar, [facility] [place] [address] [facility] [id number], [place] [address]- [address]46 Feb, [facility] [place] [address] [id number], [place] [address]46 Feb, [facility] [place] [address] [facility] [id number], [place] [address]- [address]46 Nov, [facility] [place] [address] [id number], [place] [address]46 May, IMMUNIZATIONS No Known Immunizations SOCIAL HISTORY Never Assessed REASON FOR VISIT Follow-up PTSD/Bipolar Disorder PLAN OF CARE Activity Details Follow Up 2 Weeks Reason: Follow-up VITAL SIGNS MEDICATIONS Unknown Medications RESULTS No Results PROCEDURES Procedure Date Ordered Result Body Site Psychotherapy, patient &/family, 45 minutes, established patient July 30, 2017 INSTRUCTIONS MEDICATIONS ADMINISTERED No Known Medications MEDICAL (GENERAL) HISTORY Type Description Date Medical History HELP syndrome Medical History bi-polar Medical History hypertension Medical History hx of seizure x1, isolated Surgical History gallbladder 10/2013 Surgical History 03/2014 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
--- OUTSIDE RECORDS SUMMARY | 2017-12-25 20:14 | XMS REPORT ---
Author Author MARIANO REDDY [facility] Address [address] [place] [address] Care Team Providers Care Oracle Fusion Developer Name Role Phone BARRY MARIANO Unavailable PROBLEMS Type Condition ICD9-CM Code [id number] Code Onset Dates Condition Status SNOMED Code Problem Bipolar I disorder with depression F31.9 Active 82789253 Problem Amenorrhea N91.2 Active 76224699 Problem Social anxiety disorder F40.10 Active 73023604 Problem Obsessive-compulsive disorder, unspecified type F42.9 Active 257754839 Problem PTSD (post-traumatic stress disorder) F43.10 Active 06942788 Problem Mood disorder F39 Active 44138719 Problem 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 Active 51920802 ALLERGIES Substance Reaction Event Type Date Status Lamictal rash/blisters Drug Allergy Jun, Active Azithromycin hives Drug Allergy Jun, Active ORAGEL Unknown Non Drug Allergy Jun, Active ENCOUNTERS Encounter Location Date Diagnosis [facility] [id number] [place] [address] 38883- 4827 Nov, [facility] [id number] [place] [address] 46963- 6100 Nov, [facility] [id number] [place] [address] 64244- 1069 Nov, [facility] [id number] [place] [address] 08374- 1719 Oct, [facility] [id number] [place] [address] 27970- 2948 Oct, PTSD (post-traumatic stress disorder) F43.10 and Bipolar I disorder with depression F31.9 [facility] [id number] [place] [address] 17378- 3172 Oct, [facility] [id number] [address] 8759 Oct, PTSD (post-traumatic stress disorder) F43.10 and Bipolar I disorder with depression F31.9 [facility] [address] [address] 8147 Oct, [facility] [address] [address] 8685 Sep, Bipolar I disorder with depression F31.9 [facility] [address] [address] 8202 Sep, Bipolar I disorder with depression F31.9 ; PTSD (post- traumatic stress disorder) F43.10 ; 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 ; Social anxiety disorder F40.10 and BMI 50.0-59.9, adult Z68.43 [place] [id number] [place] [address] 68714- 1236 Sep, PTSD (post-traumatic stress disorder) F43.10 and Bipolar I disorder with depression F31.9 [place] [id number] [place] [address] 27288- 5835 Sep, PTSD (post-traumatic stress disorder) F43.10 and Bipolar I disorder with depression F31.9 [facility] [address] [address] 8051 August, PTSD (post-traumatic stress disorder) F43.10 and Bipolar I disorder with depression F31.9 [facility] [address] [address]- 0341 August, Bipolar I disorder with depression F31.9 ; PTSD (post- traumatic stress disorder) F43.10 ; 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 ; Social anxiety disorder F40.10 and BMI 50.0-59.9, adult Z68.43 [facility] [address] [address] 3300 August, [place] [id number] [place] [address] 39821- 2238 August, Bipolar I disorder with depression F31.9 ; PTSD (post- traumatic stress disorder) F43.10 ; 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 ; Social anxiety disorder F40.10 and BMI 50.0-59.9, adult Z68.43 [place] [id number] [place] [address] 42468- 7925 August, [place] [id number] [place] [address] 17905- 6267 August, [place] [id number] [place] [address] 10293- 0253 August, PTSD (post-traumatic stress disorder) F43.10 and Bipolar I disorder with depression F31.9 [place] [id number] [place] [address] 91344- 7233 August, [place] [id number] [place] [address] 76185- 5765 Jul, Bipolar I disorder with depression F31.9 ; PTSD (post- traumatic stress disorder) F43.10 ; 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 ; Social anxiety disorder F40.10 and BMI 50.0-59.9, adult Z68.43 [place] [id number] [place] [address] 09129- 7033 Jul, PTSD (post-traumatic stress disorder) F43.10 and Bipolar I disorder with depression F31.9 [place] [id number] [place] [address] 71862- 8554 Jul, Pelvic pain R10.2 ; Amenorrhea N91.2 and BMI 50.0-59.9, adult Z68.43 [place] [address] [address]- 5023 Jun, BMI 50.0-59.9, adult Z68.43 ; Bipolar I disorder with depression F31.9 ; PTSD (post-traumatic stress disorder) F43.10 and 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 [facility] [id number] [place] [address] 63169 -630 Jun, Other viral agents as the cause of diseases classified elsewhere B97.89 ; Other specified respiratory disorders J98.8 ; Bronchitis J40 and Cough R05 [facility] [id number] [place] [address] 93298- 906 Jun, PTSD (post-traumatic stress disorder) F43.10 [facility] [id number] [place] [address] 01138- 2395 Jun, PTSD (post-traumatic stress disorder) F43.10 and Bipolar I disorder with depression F31.9 [facility] [id number] [place] [address] 53842- 2447 13 May, 2017 PTSD (post-traumatic stress disorder) F43.10 and Bipolar I disorder with depression F31.9 [facility] [id number] [place] [address] 68465- 6204 12 May, 2017 [facility] [id number] [place] [address] 51496- 9707 07 May, 2017 PTSD (post-traumatic stress disorder) F43.10 and Bipolar I disorder with depression F31.9 [facility] [id number] [place] [address] 46052- 4147 Apr, PTSD (post-traumatic stress disorder) F43.10 and Bipolar I disorder with depression F31.9 [facility] [id number] [place] [address] 20349- 0282 Apr, PTSD (post-traumatic stress disorder) F43.10 and Bipolar I disorder with depression F31.9 [facility] [id number] [place] [address] 26293- 8489 Mar, PTSD (post-traumatic stress disorder) F43.10 ; Obsessive- compulsive disorder, unspecified type F42.9 ; Bipolar I disorder with depression F31.9 and Other retirement (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.899 [facility] [address] [address]- 4846 Mar, PTSD (post-traumatic stress disorder) F43.10 and Bipolar I disorder with depression F31.9 [facility] [address] [address]- 4416 Feb, PTSD (post-traumatic stress disorder) F43.10 and Bipolar I disorder with depression F31.9 [facility] [address] [address] 2546 Feb, PTSD (post-traumatic stress disorder) F43.10 and Bipolar I disorder with depression F31.9 [facility] [address] [address]4 Jan, Strep pharyngitis J02.0 [facility] [id number] [place] [address] 63239- 2306 Jan, [facility] [id number] [place] [address] 33148- 5509 Jan, [facility] [id number] [place] [address] 25229- 2262 Jan, PTSD (post-traumatic stress disorder) F43.10 and Bipolar I disorder with depression F31.9 [facility] [address] [address]- 5750 Jan, PTSD (post-traumatic stress disorder) F43.10 and Bipolar I disorder with depression F31.9 [facility] [address] [address] 2546 Jan, Other retirement (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.899 [facility] [address] [address]- 1086 Jan, PTSD (post-traumatic stress disorder) F43.10 ; Obsessive- compulsive disorder, unspecified type F42.9 ; Bipolar I disorder with depression F31.9 and 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 [facility] [id number] [place] [address] 22295- 0056 27 Dec, 2016 Encounter for IUD removal Z30.432 and control counseling Z30.09 [facility] [id number] [place] [address] 65795- 1076 25 Dec, 2016 PTSD (post-traumatic stress disorder) F43.10 ; Obsessive- compulsive disorder, unspecified type F42.9 and Bipolar I disorder with depression F31.9 [facility] [id number] [place] [address] 05546- 1897 Dec, PTSD (post-traumatic stress disorder) F43.10 and Bipolar I disorder with depression F31.9 [facility] [id number] [place] [address] 85813- 9451 12 Dec, 2016 PTSD (post-traumatic stress disorder) F43.10 and Bipolar I disorder with depression F31.9 [facility] [id number] [place] [address] 60701- 0392 11 Dec, 2016 Mood disorder F39 [facility] [id number] [place] [address] 72895- 3438 08 Dec, 2016 PTSD (post-traumatic stress disorder) F43.10 ; Mood disorder F39 and Obsessive-compulsive disorder, unspecified type F42.9 [facility] [address] [place] [address] 61026- 5117 07 Dec, 2016 PTSD (post-traumatic stress disorder) F43.10 and Bipolar I disorder with depression F31.9 [facility] [id number] [place] [address] 73893 -4259 05 Dec, 2016 Adverse drug reaction, initial encounter T88.7XXA [facility] [id number] [place] [address] 72847- 9667 Dec, [facility] [id number] [place] [address] 26015- 9143 Nov, PTSD (post-traumatic stress disorder) F43.10 and Bipolar I disorder with depression F31.9 [facility] [address] [address]- 1550 Nov, PTSD (post-traumatic stress disorder) F43.10 ; Mood disorder F39 and Obsessive-compulsive disorder, unspecified type F42.9 [facility] [address] [address]- 2595 Nov, PTSD (post-traumatic stress disorder) F43.10 and Bipolar I disorder with depression F31.9 [facility] [address] [address]- 2606 Nov, PTSD (post-traumatic stress disorder) F43.10 and Bipolar I disorder with depression F31.9 [facility] [address] [address] -3297 Nov, [facility] [id number] [place] [address] 64355- 9437 Nov, PTSD (post-traumatic stress disorder) F43.10 and Bipolar I disorder with depression F31.9 [facility] [id number] [place] [address] 86196- 7249 Nov, PTSD (post-traumatic stress disorder) F43.10 and Bipolar I disorder with depression F31.9 [facility] [address] [address]- 8722 Oct, [facility] [id number] [place] [address] 21667- 8734 Oct, PTSD (post-traumatic stress disorder) F43.10 ; Mood disorder F39 and Obsessive-compulsive disorder, unspecified type F42.9 [facility] [id number] [place] [address] 04775- 3020 Oct, PTSD (post-traumatic stress disorder) F43.10 and Bipolar I disorder with depression F31.9 [facility] [id number] [place] [address] 99809- 5213 Oct, PTSD (post-traumatic stress disorder) F43.10 and Bipolar I disorder with depression F31.9 [facility] [address] [address]- 2866 Oct, PTSD (post-traumatic stress disorder) F43.10 ; Mood disorder F39 and Obsessive-compulsive disorder, unspecified type F42.9 [place] [address], [place] [address]- 8113 Oct, [place] [id number] [place] [address] 90196- 2497 Oct, PTSD (post-traumatic stress disorder) F43.10 and Bipolar I disorder with depression F31.9 [place] [address] [address]- 5894 Oct, PTSD (post-traumatic stress disorder) F43.10 ; Mood disorder F39 and Obsessive-compulsive disorder, unspecified type F42.9 [place] [address], [place] [address]- 4938 Sep, PTSD (post-traumatic stress disorder) F43.10 and Bipolar I disorder with depression F31.9 [place] [address], [place] [address]- 7921 Sep, PTSD (post-traumatic stress disorder) F43.10 ; Mood disorder F39 and Obsessive-compulsive disorder, unspecified type F42.9 [place] [address], [place] [address]- 6575 Sep, PTSD (post-traumatic stress disorder) F43.10 and Bipolar I disorder with depression F31.9 [place] [address], [place] [address]- 8886 Sep, PTSD (post-traumatic stress disorder) F43.10 and Bipolar I disorder with depression F31.9 [place] [address] [address]- 1903 August, PTSD (post-traumatic stress disorder) F43.10 and Bipolar I disorder with depression F31.9 [facility] [id number] [place] [address] 27973 -1090 August, Pharyngitis due to other organism J02.8 [facility] [id number] [place] [address] 29262- 2656 August, PTSD (post-traumatic stress disorder) F43.10 ; Bipolar 1 disorder, mixed F31.60 and 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 [facility] [id number] [place] [address] 84513- 7191 August, PTSD (post-traumatic stress disorder) F43.10 and Bipolar I disorder with depression F31.9 [facility] [id number] [place] [address] 56877- 5165 Jul, PTSD (post-traumatic stress disorder) F43.10 and Bipolar I disorder with depression F31.9 [facility] [id number] [place] [address] 82643- 2986 Jul, PTSD (post-traumatic stress disorder) F43.10 and Bipolar I disorder with depression F31.9 [facility] [address], [place] [address]- 0674 Jul, PTSD (post-traumatic stress disorder) F43.10 and Bipolar I disorder with depression F31.9 [facility] [address] [place] [address] 95488- 6574 Jul, Other retirement (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.899 [facility] [id number] [place] [address] 80550- 4799 Jun, PTSD (post-traumatic stress disorder) F43.10 and Bipolar I disorder with depression F31.9 [facility] [address], [place] [address]- 3430 Jun, Bipolar 1 disorder, mixed F31.60 ; PTSD (post-traumatic stress disorder) F43.10 and 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 [place] [id number] [place] [address] 58904- 5017 Jun, PTSD (post-traumatic stress disorder) F43.10 and Depression , unspecified depression type F32.9 [place] [address] 62035- 0956 Jun, PTSD (post-traumatic stress disorder) F43.10 and Depression , unspecified depression type F32.9 [place] [address] 14986- 4985 Jun, PTSD (post-traumatic stress disorder) F43.10 and Depression , unspecified depression type F32.9 [facility] [place] [address] 57607 -8889 May, Fever, unspecified fever cause R50.9 and Gastroenteritis K52.9 [place] [address] 42834- 7371 Mar, Sprain of other ligament of right ankle, subsequent encounter S93.491D [place] [address] 46994- 7352 Mar, [facility] [place] [address] 58782 -6028 Feb, Scabies infestation B86 [place] [address] 88701- 1790 Feb, Dental caries K02.9 [place] [address] 10224- 1681 Jan, [facility] [address] 24655 -4752 Jan, Pharyngitis, unspecified etiology J02.9 [place] [address] 30745- 4975 Jan, [place] [address] [place] [address] 82726- 0493 Jan, Bipolar affective disorder, remission status unspecified F31.9 [place] [id number] [place] [address] 56342- 1772 Jan, Encounter for dental examination and cleaning without abnormal findings Z01.20 [place] [address] [id number] [place] [address] 26277- 9487 Jan, Bipolar affective disorder, remission status unspecified F31.9 [place] [id number] [place] [address] 47608- 5817 29 Dec, 2015 Bipolar affective disorder, remission status unspecified F31.9 and Depression, unspecified depression type F32.9 [place] [id number] [place] [address] 86550- 3604 Dec, Unspecified mood [affective] disorder F39 and Generalized anxiety disorder F41.1 [place] [address] [id number] [place] [address] 88113- 9918 08 Dec, 2015 Depression, unspecified depression type F32.9 [place] [id number] [place] [address] 57828- 5200 Nov, Dental caries K02.9 [place] [address] [id number] [place] [address] 63811- 1723 Nov, Dental examination Z01.20 [place] [address] [id number] [place] [address] 84752- 5524 Sep, Bipolar affective disorder, remission status unspecified F31.9 [place] [id number] [place] [address] 21216- 3020 August, Tension headache G44.209 [facility] [id number] [place] [address] 53833 -5816 Jul, [facility] [id number] [place] [address] 57212 -0457 Jul, Upper respiratory infection J06.9 and Gastroenteritis K52.9 [facility] [address], [place] [address]- 9876 Jun, Bronchitis J40 [facility] [id number] [place] [address] 36669 -1016 Feb, Thoracic back pain M54.6 and Left shoulder pain M25.512 [facility] [id number] [place] [address] 66174- 7480 Feb, [facility] [id number] [place] [address] 53871- 6109 Jul, [facility] [id number] [place] [address] 46528- 9459 Jul, [facility] [id number] [place] [address] 38462- 9467 Apr, [facility] [id number] [place] [address] 73174- 0824 Apr, [facility] [id number] [place] [address] 24906- 6113 Apr, [facility] [id number] [place] [address] 61688- 0526 Apr, [facility] [id number] [place] [address] 17493- 7744 Mar, [facility] [id number] [place] [address] 55584- 5885 Mar, [facility] [address] [place] [address] 39183- 7138 Mar, [facility] [id number] [place] [address] 66210- 5098 Mar, [facility] [address] [place] [address] 06737- 9373 Feb, [facility] [id number] [place] [address] 56442- 3696 Feb, [facility] [place] [facility] [address] [id number] [place] [address]- 9567 Feb, [facility] [place] [facility] [address] [id number] [place] [address]- 1442 Feb, [facility] [place] [facility] [address] [id number] [place] [address]- 1434 15 Jan, 2014 [facility] [place] [facility] [address] [id number] [place] [address]- 0422 15 Jan, 2014 [facility] [place] [facility] [address] [id number] [place] [address]- 5338 14 Jan, 2014 [facility] [place] [facility] [address] [id number] [place] [address]- 8832 14 Jan, 2014 [facility] [place] [facility] [address] [id number] [place] [address]- 9785 Jan, [facility] [place] [facility] [address] [id number] [place] [address]- 5068 Jan, [facility] [place] [facility] [address] [id number] [place] [address]- 6335 Dec, [facility] [place] [facility] [address] [id number] [place] [address]- 6756 Dec, [facility] [place] [facility] [address] [id number] [place] [address]- 2842 Nov, [facility] [place] [facility] [address] [id number] [address]- 8072 Nov, [facility] [place] [facility] [address] [id number] [place] [address]- 4745 Nov, [facility] [place] [facility] [address] [id number] [place] [address]- 4573 Nov, [facility] [place] [facility] [address] [id number] [place] [address] Nov, [facility] [place] [facility] [address] [id number] [place] [address] Nov, [facility] [place] [facility] [address] [id number] [place] [address] Nov, [facility] [place] [facility] [address] [id number] [place] [address] Nov, [facility] [place] [facility] [address] [id number] [place] [address] Nov, [facility] [place] [facility] [address] [id number] [place] [address] Oct, [facility] [place] [facility] [address] [id number] [place] [address] Oct, [facility] [place] [facility] [address] [id number] [place] [address] Oct, [facility] [place] [facility] [address] [id number] [place] [address] Oct, [facility] [place] [facility] [address] [id number] [place] [address] Oct, [facility] [place] [facility] [address] [id number] [place] [address] Oct, [facility] [place] [facility] [address] [id number] [place] [address] Oct, [facility] [place] [facility] [address] [id number] [place] [address] Oct, [facility] [place] [facility] [address] [id number] [place] [address] Oct, [facility] [place] [facility] [address] [id number] [place] [address] Oct, [facility] [place] [facility] [address] [id number] [place] [address] Oct, [facility] [place] [facility] [address] [id number] [place] [address] Oct, 2013 [facility] [place] [facility] [address] [id number] [place] [address] Oct, 2013 [facility] [place] [facility] [address] [id number] [place] [address] Oct, [facility] [place] [facility] [address] [id number] [place] [address] Oct, 2013 [facility] [place] [facility] [address] [id number] [place] [address] Oct, 2013 [facility] [place] [facility] [address] [id number] [place] [address] Oct, 2013 [facility] [place] [facility] [address] [address] [id number] [place] [address] Oct, [facility] [place] [facility] [address] [id number] [place] [address] Oct, [facility] [place] [facility] [address] [id number] [place] [address] Sep, [facility] [place] [facility] [address] [id number] [place] [address] Sep, [facility] [place] [facility] [address] [id number] [place] [address] Sep, [facility] [place] [facility] [address] [id number], [place] [address] Sep, [facility] [place] [facility] [address] [id number], [place] [address] Feb, [facility] [place] [facility] [address] [id number] [place] [address] Feb, [facility] [place] [facility] [address] [id number], [place] [address] Dec, [facility] [place] [facility] [address] [id number] [place] [address] Dec, [facility] [place] [facility] [address] [id number] [place] [address] Nov, [facility] [address] [id number] [place] [address] Nov, [facility] [place] [facility] [address] [id number] [place] [address] Nov, [facility] [address] [id number] [place] [address] Nov, [facility] [place] [facility] [address] [id number] [place] [address] Nov, [facility] [place] [facility] [address] [id number] [place] [address] Nov, [facility] [place] [facility] [address] [id number] [place] [address] Oct, [facility] [address] [id number] [place] [address] Apr, [facility] [address] [id number] [place] [address] August, [facility] [place] [facility] [address] [id number] [place] [address] August, [facility] [address] [id number] [place] [address] August, [facility] [place] [facility] [address] [id number] [place] [address] Jul, [facility] [place] [facility] [address] [id number] [place] [address] 28 Jun, 2011 [facility] [place] [facility] [address] [id number] [place] [address] 27 Jun, 2011 [facility] [place] [facility] [address] [id number] [place] [address] 14 Jun, 2011 [facility] [place] [facility] [address] [id number] [place] [address] 14 Jun, 2011 [facility] [place] [facility] [address] [id number] [place] [address] Jun, [facility] [place] [facility] [address] [id number] [place] [address] Jun, [facility] [place] [facility] [address] [id number] [place] [address] May, [facility] [place] [facility] [address] [id number] [place] [address] 16 May, 2011 [facility] [place] [facility] [address] [id number] [place] [address] May, [facility] [place] [facility] [address] [id number] [place] [address] 07 May, 2011 [facility] [place] [facility] [address] [id number] [place] [address] May, [facility] [place] [facility] [address] [id number] [place] [address] May, [facility] [place] [facility] [address] [id number] [place] [address] Apr, [facility] [place] [facility] [address] [id number] [place] [address] Mar, [facility] [place] [facility] [address] [id number] [place] [address] Mar, [facility] [place] [facility] [address] [id number], [place] [address] 02 Feb, 2011 [facility] [place] [facility] [address] [id number] [place] [address] Jan, [facility] [place] [facility] [address] [id number] [place] [address] Mar, [facility] [place] [facility] [address] [id number] [place] [address] 15 Mar, 2009 [facility] [place] [facility] [address] [id number], [place] [address] 10 Mar, 2009 [facility] [address] [id number], [place] [address] Mar, [facility] [address] [id number], [place] [address] Mar, [facility] [id number], [place] [address] Feb, [facility] [id number] [address] Feb, [facility] [id number] [address] [address] Nov, [facility] [id number], [place] [address] May, IMMUNIZATIONS No Known Immunizations SOCIAL HISTORY Never Assessed REASON FOR VISIT intake PLAN OF CARE Activity Details Follow Up 4 Weeks Reason: VITAL SIGNS Height 64 in 2017-07-07 Weight 293.6 lbs 2017-07-07 Heart Rate 80 bpm 2017-07-07 Respiratory Rate 20 2017-07-07 BMI 50.39 kg/m2 2017-07-07 Blood pressure systolic 128 mmHg 2017-07-07 Blood pressure diastolic 90 mmHg 2017-07-07 MEDICATIONS Medication Instructions Dosage Frequency Start Date End Date Duration Status Latuda 80 MG Orally Once a day at supper with food 1 tablet 30 days Active Restoril 15 MG Orally Once a day 1 capsule at bedtime as needed 24h Jun 30 days Active PredniSONE 5 MG (21) Orally Once a day with food take each days dose at the same time as directed Jun, Not-Taking Flonase Allergy Relief 50 MCG/ACT Nasally twice a day 1 spray in each nostril 12h Jun, 07 days Not-Taking Sprintec 28 0.25-35 MG-MCG Orally Once a day 1 tablet 24h Dec, 30 day(s) Active Mirena 20 MCG/24HR Not-Taking RESULTS No Results PROCEDURES No Known procedures INSTRUCTIONS MEDICATIONS ADMINISTERED No Known Medications MEDICAL (GENERAL) HISTORY Type Description Date Medical History HELP syndrome Medical History bi-polar Medical History hypertension Medical History hx of seizure x1, isolated Surgical History gallbladder 10/2013 Surgical History 03/2014 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
--- OUTSIDE RECORDS SUMMARY | 2017-12-25 20:14 | XMS REPORT ---
Author Author TI FALCON [facility] Address [address] [place] [address] Care Team Providers Care Homebirth Midwife Name Role Phone TERRIEALEJANDRO YBARRAHANY Unavailable PROBLEMS Type Condition ICD9-CM Code UHP63-QX Code Onset Dates Condition Status SNOMED Code Problem Bipolar I disorder with depression F31.9 Active 77108006 Problem Amenorrhea N91.2 Active 90083444 Problem Social anxiety disorder F40.10 Active 69923402 Problem Obsessive-compulsive disorder, unspecified type F42.9 Active 723978548 Problem PTSD (post-traumatic stress disorder) F43.10 Active 46936711 Problem Mood disorder F39 Active 04964340 Problem 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 [id number] [place] [address] 58320- 4592 Nov, [facility] [id number] [place] [address] 05842- 0884 Nov, [facility] [id number] [place] [address] 65672- 8604 Oct, PTSD (post-traumatic stress disorder) F43.10 and Bipolar I disorder with depression F31.9 [facility] [id number] [place] [address] 61721- 7572 Oct, [facility] [id number] [place] [address] 95121- 9958 Oct, PTSD (post-traumatic stress disorder) F43.10 and Bipolar I disorder with depression F31.9 [facility] [address] [address] Oct, [facility] [address] [address] 6948 Sep, Bipolar I disorder with depression F31.9 [facility] [id number] [place] [address] 35892- 0015 Sep, Bipolar I disorder with depression F31.9 ; PTSD (post- traumatic stress disorder) F43.10 ; 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 ; Social anxiety disorder F40.10 and BMI 50.0-59.9, adult Z68.43 [place] [address] [address] 2564 Sep, PTSD (post-traumatic stress disorder) F43.10 and Bipolar I disorder with depression F31.9 [place] [address] [address] 1156 Sep, PTSD (post-traumatic stress disorder) F43.10 and Bipolar I disorder with depression F31.9 [place] [address] [address] 4306 August, PTSD (post-traumatic stress disorder) F43.10 and Bipolar I disorder with depression F31.9 [place] [address] [address] August, Bipolar I disorder with depression F31.9 ; PTSD (post- traumatic stress disorder) F43.10 ; 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 ; Social anxiety disorder F40.10 and BMI 50.0-59.9, adult Z68.43 [facility] [address] [address] 2241 August, [place] [address] [address]- 7739 August, Bipolar I disorder with depression F31.9 ; PTSD (post- traumatic stress disorder) F43.10 ; 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 ; Social anxiety disorder F40.10 and BMI 50.0-59.9, adult Z68.43 [facility] [id number] [place] [address] 73194- 4045 August, [place] [id number] [place] [address] 62769- 3471 August, [place] [id number] [place] [address] 82241- 1582 August, PTSD (post-traumatic stress disorder) F43.10 and Bipolar I disorder with depression F31.9 [place] [id number] [place] [address] 12602- 4379 August, [place] [id number] [place] [address] 43827- 7545 Jul, Bipolar I disorder with depression F31.9 ; PTSD (post- traumatic stress disorder) F43.10 ; 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 ; Social anxiety disorder F40.10 and BMI 50.0-59.9, adult Z68.43 [place] [id number] [place] [address] 39690- 1558 Jul, PTSD (post-traumatic stress disorder) F43.10 and Bipolar I disorder with depression F31.9 [place] [id number] [place] [address] 68187- 8160 Jul, Pelvic pain R10.2 ; Amenorrhea N91.2 and BMI 50.0-59.9, adult Z68.43 [place] [id number] [place] [address] 93001- 0462 Jun, BMI 50.0-59.9, adult Z68.43 ; Bipolar I disorder with depression F31.9 ; PTSD (post-traumatic stress disorder) F43.10 and 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 [facility] [id number] [place] [address] 53446 -5083 15 Jun, 2017 Other viral agents as the cause of diseases classified elsewhere B97.89 ; Other specified respiratory disorders J98.8 ; Bronchitis J40 and Cough R05 [facility] [id number] [place] [address] 67035- 6062 13 Jun, 2017 PTSD (post-traumatic stress disorder) F43.10 [place] [id number] [place] [address] 42200- 9648 Jun, PTSD (post-traumatic stress disorder) F43.10 and Bipolar I disorder with depression F31.9 [place] [address] 68832- 2246 13 May, 2017 PTSD (post-traumatic stress disorder) F43.10 and Bipolar I disorder with depression F31.9 [place] [id number] [place] [address] 93209- 8997 May, [place] [id number] [place] [address] 37177- 4387 May, PTSD (post-traumatic stress disorder) F43.10 and Bipolar I disorder with depression F31.9 [place] [id number] [place] [address] 55222- 7169 Apr, PTSD (post-traumatic stress disorder) F43.10 and Bipolar I disorder with depression F31.9 [place] [id number] [place] [address] 35283- 5406 Apr, PTSD (post-traumatic stress disorder) F43.10 and Bipolar I disorder with depression F31.9 [place] [id number] [place] [address] 54148- 5414 Mar, PTSD (post-traumatic stress disorder) F43.10 ; Obsessive- compulsive disorder, unspecified type F42.9 ; Bipolar I disorder with depression F31.9 and 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 [address] [place] [address] 99464- 7992 Feb, PTSD (post-traumatic stress disorder) F43.10 and Bipolar I disorder with depression F31.9 [facility] [id number] [place] [address] 81460- 6117 Feb, PTSD (post-traumatic stress disorder) F43.10 and Bipolar I disorder with depression F31.9 [facility] [id number] [place] [address] 09032 -3184 Jan, Strep pharyngitis J02.0 [facility] [id number] [place] [address] 70201- 9428 Jan, [facility] [id number] [place] [address] 66836- 9960 Jan, [facility] [id number] [place] [address] 68766- 4471 Jan, PTSD (post-traumatic stress disorder) F43.10 and Bipolar I disorder with depression F31.9 [facility] [address] [place] [address] 55844- 8188 Jan, PTSD (post-traumatic stress disorder) F43.10 and Bipolar I disorder with depression F31.9 [facility] [id number] [place] [address] 38601- 8550 Jan, Other alf (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.899 [facility] [id number] [place] [address] 03269- 0941 Jan, PTSD (post-traumatic stress disorder) F43.10 ; Obsessive- compulsive disorder, unspecified type F42.9 ; Bipolar I disorder with depression F31.9 and Other alf (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.899 [facility] [address] [place] [address] 33480- 1141 27 Dec, 2016 Encounter for IUD removal Z30.432 and control counseling Z30.09 [facility] [address] [place] [address] 53128- 9659 Dec, PTSD (post-traumatic stress disorder) F43.10 ; Obsessive- compulsive disorder, unspecified type F42.9 and Bipolar I disorder with depression F31.9 [facility] [id number] [place] [address] 88602- 9405 Dec, PTSD (post-traumatic stress disorder) F43.10 and Bipolar I disorder with depression F31.9 [facility] [id number] [place] [address] 20020- 2423 Dec, PTSD (post-traumatic stress disorder) F43.10 and Bipolar I disorder with depression F31.9 [facility] [id number] [place] [address] 42692- 2831 Dec, Mood disorder F39 [facility] [id number] [place] [address] 72745- 7896 08 Dec, 2016 PTSD (post-traumatic stress disorder) F43.10 ; Mood disorder F39 and Obsessive-compulsive disorder, unspecified type F42.9 [facility] [id number] [place] [address] 60994- 8332 Dec, PTSD (post-traumatic stress disorder) F43.10 and Bipolar I disorder with depression F31.9 [facility] [id number] [place] [address] 68376 -1706 Dec, Adverse drug reaction, initial encounter T88.7XXA [facility] [id number] [place] [address] 88334- 0700 Dec, [facility] [id number] [place] [address] 80709- 5032 Nov, PTSD (post-traumatic stress disorder) F43.10 and Bipolar I disorder with depression F31.9 [facility] [id number] [address]- 6044 Nov, PTSD (post-traumatic stress disorder) F43.10 ; Mood disorder F39 and Obsessive-compulsive disorder, unspecified type F42.9 [facility] [address], [place] [address]- 4188 Nov, PTSD (post-traumatic stress disorder) F43.10 and Bipolar I disorder with depression F31.9 [facility] [address], [place] [address]- 0359 Nov, PTSD (post-traumatic stress disorder) F43.10 and Bipolar I disorder with depression F31.9 [facility] [address], [place] [address] Nov, [facility] [address], [place] [address]- 3621 Nov, PTSD (post-traumatic stress disorder) F43.10 and Bipolar I disorder with depression F31.9 [facility] [address], [place] [address]- 4867 Nov, PTSD (post-traumatic stress disorder) F43.10 and Bipolar I disorder with depression F31.9 [facility] [address], [place] [address]- 3587 Oct, [facility] [address], [place] [address]- 8599 Oct, PTSD (post-traumatic stress disorder) F43.10 ; Mood disorder F39 and Obsessive-compulsive disorder, unspecified type F42.9 [facility] [address], [place] [address]- 3954 Oct, PTSD (post-traumatic stress disorder) F43.10 and Bipolar I disorder with depression F31.9 [facility] [id number], [place] [address]- 0207 Oct, PTSD (post-traumatic stress disorder) F43.10 and Bipolar I disorder with depression F31.9 [facility] [id number], [place] [address]- 0823 Oct, PTSD (post-traumatic stress disorder) F43.10 ; Mood disorder F39 and Obsessive-compulsive disorder, unspecified type F42.9 [facility] [address], [place] [address]- 9503 Oct, [facility] [address], [place] [address]- 1221 Oct, PTSD (post-traumatic stress disorder) F43.10 and Bipolar I disorder with depression F31.9 [facility] [address], [place] [address]- 2514 Oct, PTSD (post-traumatic stress disorder) F43.10 ; Mood disorder F39 and Obsessive-compulsive disorder, unspecified type F42.9 [facility] [address], [place] [address]- 2054 Sep, PTSD (post-traumatic stress disorder) F43.10 and Bipolar I disorder with depression F31.9 [facility] [address], [place] [address]- 7431 Sep, PTSD (post-traumatic stress disorder) F43.10 ; Mood disorder F39 and Obsessive-compulsive disorder, unspecified type F42.9 [facility] [id number], [place] [address]- 0141 Sep, PTSD (post-traumatic stress disorder) F43.10 and Bipolar I disorder with depression F31.9 [facility] [id number], [place] [address]- 3510 Sep, PTSD (post-traumatic stress disorder) F43.10 and Bipolar I disorder with depression F31.9 [facility] [id number], [place] [address]- 4442 August, PTSD (post-traumatic stress disorder) F43.10 and Bipolar I disorder with depression F31.9 [facility] [address], [place] [address] -2831 August, Pharyngitis due to other organism J02.8 [facility] [id number] [place] [address] 28077- 8586 August, PTSD (post-traumatic stress disorder) F43.10 ; Bipolar 1 disorder, mixed F31.60 and Other remote computer terminal operator (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.899 [facility] [id number] [place] [address] 83637- 0699 August, PTSD (post-traumatic stress disorder) F43.10 and Bipolar I disorder with depression F31.9 [facility] [id number] [place] [address] 78443- 7590 Jul, PTSD (post-traumatic stress disorder) F43.10 and Bipolar I disorder with depression F31.9 [facility] [id number] [place] [address] 46818- 1405 Jul, PTSD (post-traumatic stress disorder) F43.10 and Bipolar I disorder with depression F31.9 [facility] [address] [place] [address] 09460- 6628 Jul, PTSD (post-traumatic stress disorder) F43.10 and Bipolar I disorder with depression F31.9 [facility] [address], [place] [address]- 2111 Jul, Other alf (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.899 [facility] [address], [place] [address]- 3686 Jun, PTSD (post-traumatic stress disorder) F43.10 and Bipolar I disorder with depression F31.9 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 [id number] [place] [address] 67105- 1752 Jun, PTSD (post-traumatic stress disorder) F43.10 and Depression , unspecified depression type F32.9 [place] [id number] [place] [address] 72198- 7027 Jun, PTSD (post-traumatic stress disorder) F43.10 and Depression , unspecified depression type F32.9 [place] [id number] [place] [address] 57701- 9459 Jun, PTSD (post-traumatic stress disorder) F43.10 and Depression , unspecified depression type F32.9 [facility] [address] 08868 -0336 May, Fever, unspecified fever cause R50.9 and Gastroenteritis K52.9 [place] [address] 46750- 2898 Mar, Sprain of other ligament of right ankle, subsequent encounter S93.491D [place] [address] 25127- 6670 Mar, [facility] [place] [id number] [place] [address] 20090 -1657 Feb, Scabies infestation B86 [place] [id number] [place] [address] 49420- 5203 Feb, Dental caries K02.9 [place] [id number] [place] [address] 74243- 1452 Jan, [facility] [id number] [place] [address] 77504 -8456 Jan, Pharyngitis, unspecified etiology J02.9 [place] [id number] [place] [address] 84507- 4595 Jan, [place] [id number] [place] [address] 71380- 2357 Jan, Bipolar affective disorder, remission status unspecified F31.9 [facility] [id number] [place] [address] 94731- 5135 Jan, Encounter for dental examination and cleaning without abnormal findings Z01.20 [facility] [id number] [place] [address] 42239- 2894 Jan, Bipolar affective disorder, remission status unspecified F31.9 [place] [address] 60012- 5773 Dec, Bipolar affective disorder, remission status unspecified F31.9 and Depression, unspecified depression type F32.9 [place] [id number] [place] [address] 43790- 9008 Dec, Unspecified mood [affective] disorder F39 and Generalized anxiety disorder F41.1 [place] [address] 47398- 6948 Dec, Depression, unspecified depression type F32.9 [place] [id number] [place] [address] 17418- 2477 Nov, Dental caries K02.9 [place] [address] 88779- 8211 Nov, Dental examination Z01.20 [place] [id number] [place] [address] 48683- 7351 Sep, Bipolar affective disorder, remission status unspecified F31.9 [place] [id number] [place] [address] 83434- 4476 August, Tension headache G44.209 [facility] [address] 80474 -3597 Jul, [facility] [id number] [place] [address] 13038 -1800 Jul, Upper respiratory infection J06.9 and Gastroenteritis K52.9 [place] [address] [place] [address]- 0175 Jun, Bronchitis J40 [facility] [id number] [address] -9495 Feb, Thoracic back pain M54.6 and Left shoulder pain M25.512 [facility] [address], [place] [address]- 3915 Feb, [facility] [id number] [place] [address] 95535- 2042 Jul, [facility] [id number] [place] [address] 86187- 3652 Jul, [facility] [id number] [place] [address] 90184- 1550 Apr, [facility] [id number] [place] [address] 03466- 8830 Apr, [facility] [id number] [place] [address] 25345- 4088 Apr, [facility] [id number] [place] [address] 87318- 6909 Apr, [facility] [id number] [place] [address] 95641- 0124 Mar, [facility] [address], [place] [address]- 4072 Mar, [facility] [address], [place] [address]- 5193 Mar, [facility] [address], [place] [address]- 5910 Mar, [facility] [id number] [address]- 9407 Feb, [facility] [place] [facility] [address], [place] [address]- 2965 Feb, [facility] [id number] [place] [address] 41734- 5809 Feb, [facility] [place] [facility] [address] [id number] [place] [address]- 2384 Feb, [facility] [place] [facility] [address] [id number] [place] [address]- 6130 15 Jan, 2014 [facility] [place] [facility] [address] [id number] [place] [address]- 0972 15 Jan, 2014 [facility] [place] [facility] [address] [id number] [place] [address]- 5723 14 Jan, 2014 [facility] [place] [facility] [address] [id number] [place] [address]- 7325 14 Jan, 2014 [facility] [place] [facility] [address] [id number] [place] [address]- 8010 Jan, [facility] [place] [facility] [address] [id number] [place] [address]- 9378 Jan, [facility] [place] [facility] [address] [id number] [place] [address]- 3978 Dec, [facility] [place] [facility] [address] [id number] [place] [address] Dec, [facility] [place] [facility] [address] [id number] [place] [address] Nov, [facility] [place] [facility] [address] [id number] [place] [address] Nov, [facility] [place] [facility] [address] [id number], [place] [address] Nov, [facility] [place] [facility] [address] [id number] [place] [address] Nov, [facility] [place] [facility] [address] [id number] [place] [address] Nov, [facility] [place] [facility] [address] [id number] [place] [address] Nov, [facility] [place] [facility] [address] [id number] [place] [address] Nov, [facility] [place] [facility] [address] [id number] [place] [address] Nov, [facility] [place] [facility] [address] [id number] [place] [address] Nov, [facility] [place] [facility] [address] [id number] [place] [address] Oct, [facility] [place] [facility] [address] [id number] [place] [address] Oct, [facility] [place] [facility] [address] [id number] [place] [address] Oct, [facility] [place] [facility] [address] [id number] [place] [address] Oct, [facility] [place] [facility] [address] [id number] [place] [address] Oct, [facility] [place] [facility] [address] [id number] [place] [address] Oct, [facility] [place] [facility] [address] [id number] [place] [address] Oct, [facility] [place] [facility] [address] [id number] [place] [address] Oct, [facility] [place] [facility] [address] [id number] [place] [address] Oct, [facility] [place] [facility] [address] [id number] [place] [address] Oct, [facility] [place] [facility] [address] [id number] [place] [address] Oct, [facility] [place] [facility] [address] [id number] [place] [address] Oct, [facility] [place] [facility] [address] [id number] [place] [address] Oct, [facility] [place] [facility] [address] [id number] [place] [address] Oct, 2013 [facility] [place] [facility] [address] [id number] [place] [address] Oct, [facility] [place] [facility] [address] [id number] [place] [address] Oct, 2013 [facility] [place] [facility] [address] [id number] [place] [address] Oct, 2013 [facility] [place] [facility] [address] [id number] [place] [address] Oct, [facility] [place] [facility] [address] [id number] [place] [address] Oct, [facility] [place] [facility] [address] [id number] [place] [address] Sep, [facility] [place] [facility] [address] [id number] [place] [address] Sep, [facility] [place] [facility] [address] [id number] [place] [address] Sep, [facility] [place] [facility] [address] [id number] [place] [address] Sep, [facility] [place] [facility] [address] [id number], [place] [address] Feb, [facility] [place] [facility] [address] [id number], [place] [address] Feb, [facility] [place] [facility] [address] [id number] [place] [address] Dec, [facility] [place] [facility] [address] [id number] [place] [address] Dec, [facility] [place] [facility] [address] [id number] [place] [address] Nov, [facility] [place] [facility] [address] [id number] [place] [address] Nov, [facility] [address] [id number] [place] [address] Nov, [facility] [place] [facility] [address] [id number] [place] [address] Nov, [facility] [address] [id number] [place] [address] Nov, [facility] [place] [facility] [address] [id number] [place] [address] Nov, [facility] [place] [facility] [address] [id number] [place] [address] Oct, [facility] [place] [facility] [address] [id number] [place] [address] Apr, [facility] [address] [id number] [place] [address] August, [facility] [address] [id number] [place] [address] August, [facility] [place] [facility] [address] [id number] [place] [address] August, [facility] [address] [id number] [place] [address] Jul, [facility] [place] [facility] [address] [id number] [place] [address] Jun, [facility] [place] [facility] [address] [id number] [place] [address] Jun, [facility] [place] [facility] [address] [id number] [place] [address]- [address] 14 Jun, 2011 [facility] [place] [facility] [address] [id number] [place] [address] 14 Jun, 2011 [facility] [place] [facility] [address] [id number] [place] [address] Jun, [facility] [place] [facility] [address] [id number] [place] [address] Jun, [facility] [place] [facility] [address] [id number] [place] [address] May, [facility] [place] [facility] [address] [id number] [place] [address] 16 May, 2011 [facility] [place] [facility] [address] [id number] [place] [address] May, [facility] [place] [facility] [address] [id number] [place] [address] May, [facility] [place] [facility] [address] [id number] [place] [address] May, [facility] [place] [facility] [address] [id number] [place] [address] May, [facility] [place] [facility] [address] [id number] [place] [address] Apr, [facility] [place] [facility] [address] [id number] [place] [address] Mar, [facility] [place] [facility] [address] [id number] [place] [address] Mar, [facility] [place] [facility] [address] [id number] [place] [address] Feb, [facility] [place] [facility] [address] [id number], [place] [address] Jan, [facility] [place] [facility] [address] [id number] [place] [address] 31 Mar, 2009 [facility] [place] [facility] [address] [id number] [place] [address]- [address] 15 Mar, 2009 [facility] [place] [facility] [address] [id number] [place] [address] 10 Mar, 2009 [facility] [place] [facility] [address] [id number] [address], [address] [facility] [id number] [address] Mar, [facility] [address] [id number], [place] [address] Feb, [facility] [id number] [address] Feb, [facility] [id number] [place] [address] Nov, [facility] [id number] [place] [address] May, IMMUNIZATIONS No Known Immunizations SOCIAL HISTORY Never Assessed REASON FOR VISIT Pain (acute), patient states she had a 3 years ago and she ia having pion on pelvic area on her right side for several months but now is getting worst , patient is requesting a test , last period was 3 months ago PLAN OF CARE Activity Details Follow Up Next available Reason:well woman VITAL SIGNS Height 64 in 2017-07-21 Weight 295 lbs 2017-07-21 Temperature 98.3 degrees Fahrenheit 2017-07-21 Heart Rate 82 bpm 2017-07-21 Respiratory Rate 20 2017-07-21 BMI 50.63 kg/m2 2017-07-21 Blood pressure systolic 136 mmHg 2017-07-21 Blood pressure diastolic 82 mmHg 2017-07-21 MEDICATIONS Medication Instructions Dosage Frequency Start Date End Date Duration Status Latuda 80 MG Orally Once a day at supper with food 1 tablet 30 days Active Sprintec 28 0.25-35 MG-MCG Orally Once a day 1 tablet 24h Dec, 30 day(s) Active Restoril 15 MG Orally Once a day 1 capsule at bedtime as needed 24h Jun 30 days Active RESULTS No Results PROCEDURES Procedure Date Ordered Result Body Site LAB NOT BILLED BY [facility] July 21, 2017 VENIPUNCT, ROUTINE* July 21, 2017 URINE TEST July 21, 2017 INSTRUCTIONS MEDICATIONS ADMINISTERED No Known Medications MEDICAL (GENERAL) HISTORY Type Description Date Medical History HELP syndrome Medical History bi-polar Medical History hypertension Medical History hx of seizure x1, isolated Surgical History gallbladder 10/2013 Surgical History 03/2014 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
--- OUTSIDE RECORDS SUMMARY | 2017-12-25 20:15 | XMS REPORT ---
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 Name Role Phone VAMSI LALA Unavailable PROBLEMS Type Condition ICD9-CM Code [id number] Code Onset Dates Condition Status SNOMED Code Problem Bipolar I disorder with depression F31.9 Active 25387847 Problem Amenorrhea N91.2 Active 15320171 Problem Social anxiety disorder F40.10 Active 14256872 Problem Obsessive-compulsive disorder, unspecified type F42.9 Active 914616039 Problem PTSD (post-traumatic stress disorder) F43.10 Active 79728022 Problem Mood disorder F39 Active 54188388 Problem 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 Active 01467371 ALLERGIES Substance Reaction Event Type Date Status Lamictal rash/blisters Drug Allergy Jun, Active Azithromycin hives Drug Allergy Jun, Active ORAGEL Unknown Non Drug Allergy Jun, Active ENCOUNTERS Encounter Location Date Diagnosis [facility] [id number] [place] [address] 88879- 6571 Nov, [facility] [address] [place] [address] 3[address] Nov, [facility] [id number] [place] [address] 12482- 7945 Nov, [facility] [address], [place] [address] 20[address] Oct, [facility] [id number] [place] [address] 45127- 2708 Oct, PTSD (post-traumatic stress disorder) F43.10 and Bipolar I disorder with depression F31.9 [facility] [id number] [place] [address] 41183- 6196 Oct, [facility] [address], [place] [address] 5484 Oct, PTSD (post-traumatic stress disorder) F43.10 and Bipolar I disorder with depression F31.9 [facility] [address], [place] [address] 27[address] Oct, [facility] [address] [place] [address] 3012 Sep, Bipolar I disorder with depression F31.9 [place] [address] [address] 30[address] Sep, Bipolar I disorder with depression F31.9 ; PTSD (post- traumatic stress disorder) F43.10 ; 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 ; Social anxiety disorder F40.10 and BMI 50.0-59.9, adult Z68.43 [place] [id number] [place] [address] 02374- 6541 Sep, PTSD (post-traumatic stress disorder) F43.10 and Bipolar I disorder with depression F31.9 [place] [address], [place] [address] 8036 Sep, PTSD (post-traumatic stress disorder) F43.10 and Bipolar I disorder with depression F31.9 [place] [address], [place] [address] 6349 August, PTSD (post-traumatic stress disorder) F43.10 and Bipolar I disorder with depression F31.9 [place] [id number] [address] 82[address] August, Bipolar I disorder with depression F31.9 ; PTSD (post- traumatic stress disorder) F43.10 ; 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 ; Social anxiety disorder F40.10 and BMI 50.0-59.9, adult Z68.43 [facility] [address], [place] [address] 24[address] August, [place] [address], [place] [address] 9722 August, Bipolar I disorder with depression F31.9 ; PTSD (post- traumatic stress disorder) F43.10 ; 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 ; Social anxiety disorder F40.10 and BMI 50.0-59.9, adult Z68.43 [place] [id number] [place] [address] 57561- 2530 August, [place] [id number] [place] [address] 30251- 6501 August, [place] [id number] [place] [address] 79674- 9150 August, PTSD (post-traumatic stress disorder) F43.10 and Bipolar I disorder with depression F31.9 [place] [id number] [place] [address] 29646- 5835 August, [place] [id number] [place] [address] 72176- 6715 Jul, Bipolar I disorder with depression F31.9 ; PTSD (post- traumatic stress disorder) F43.10 ; 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 ; Social anxiety disorder F40.10 and BMI 50.0-59.9, adult Z68.43 [place] [id number] [place] [address] 98451- 9140 Jul, PTSD (post-traumatic stress disorder) F43.10 and Bipolar I disorder with depression F31.9 [place] [id number] [place] [address] 30395- 4355 Jul, Pelvic pain R10.2 ; Amenorrhea N91.2 and BMI 50.0-59.9, adult Z68.43 [place] [address], [place] [address]- 7146 Jun, BMI 50.0-59.9, adult Z68.43 ; Bipolar I disorder with depression F31.9 ; PTSD (post-traumatic stress disorder) F43.10 and 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 [facility] [id number] [place] [address] 72004 -607 15 Jun, 2017 Other viral agents as the cause of diseases classified elsewhere B97.89 ; Other specified respiratory disorders J98.8 ; Bronchitis J40 and Cough R05 [facility] [id number] [place] [address] 77421- 6676 Jun, PTSD (post-traumatic stress disorder) F43.10 [facility] [id number] [place] [address] 48973- 9691 Jun, PTSD (post-traumatic stress disorder) F43.10 and Bipolar I disorder with depression F31.9 [facility] [id number] [place] [address] 60296- 8664 13 May, 2017 PTSD (post-traumatic stress disorder) F43.10 and Bipolar I disorder with depression F31.9 [facility] [id number] [place] [address] 70300- 9258 12 May, 2017 [facility] [id number] [place] [address] 95171- 7566 07 May, 2017 PTSD (post-traumatic stress disorder) F43.10 and Bipolar I disorder with depression F31.9 [facility] [id number] [place] [address] 04709- 7732 Apr, PTSD (post-traumatic stress disorder) F43.10 and Bipolar I disorder with depression F31.9 [facility] [id number] [place] [address] 38281- 4860 Apr, PTSD (post-traumatic stress disorder) F43.10 and Bipolar I disorder with depression F31.9 [facility] [address] [place] [address] 17322- 5739 Mar, PTSD (post-traumatic stress disorder) F43.10 ; Obsessive- compulsive disorder, unspecified type F42.9 ; Bipolar I disorder with depression F31.9 and Other alf (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.899 [facility] [id number], [place] [address] 2546 Mar, PTSD (post-traumatic stress disorder) F43.10 and Bipolar I disorder with depression F31.9 [facility] [id number], [place] [address] 2546 Feb, PTSD (post-traumatic stress disorder) F43.10 and Bipolar I disorder with depression F31.9 [facility] [id number] [address] 2546 Feb, PTSD (post-traumatic stress disorder) F43.10 and Bipolar I disorder with depression F31.9 [facility] [id number], [place] [address] 2546 Jan, Strep pharyngitis J02.0 [facility] [id number] [place] [address] 05031- 2396 Jan, [facility] [id number], [place] [address] 2546 Jan, [facility] [address], [place] [address]- 2546 Jan, PTSD (post-traumatic stress disorder) F43.10 and Bipolar I disorder with depression F31.9 [facility] [id number], [place] [address]- 4956 Jan, PTSD (post-traumatic stress disorder) F43.10 and Bipolar I disorder with depression F31.9 [facility] [id number], [place] [address] 2546 Jan, 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 [facility] [id number], [place] [address]- 2546 Jan, PTSD (post-traumatic stress disorder) F43.10 ; Obsessive- compulsive disorder, unspecified type F42.9 ; Bipolar I disorder with depression F31.9 and Other alf (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.899 [facility] [id number] [place] [address] 25697- 2816 27 Dec, 2016 Encounter for IUD removal Z30.432 and control counseling Z30.09 [facility] [id number] [place] [address] 29789- 2473 25 Dec, 2016 PTSD (post-traumatic stress disorder) F43.10 ; Obsessive- compulsive disorder, unspecified type F42.9 and Bipolar I disorder with depression F31.9 [facility] [id number] [place] [address] 19544- 4511 Dec, PTSD (post-traumatic stress disorder) F43.10 and Bipolar I disorder with depression F31.9 [facility] [id number] [place] [address] 09128- 7696 12 Dec, 2016 PTSD (post-traumatic stress disorder) F43.10 and Bipolar I disorder with depression F31.9 [facility] [id number] [place] [address] 82273- 9281 11 Dec, 2016 Mood disorder F39 [facility] [id number] [place] [address] 03776- 4713 08 Dec, 2016 PTSD (post-traumatic stress disorder) F43.10 ; Mood disorder F39 and Obsessive-compulsive disorder, unspecified type F42.9 [facility] [address] [place] [address] 28428- 6888 07 Dec, 2016 PTSD (post-traumatic stress disorder) F43.10 and Bipolar I disorder with depression F31.9 [facility] [id number] [place] [address] 49524 -5882 Dec, Adverse drug reaction, initial encounter T88.7XXA [facility] [id number] [place] [address] 14732- 1309 Dec, [facility] [id number] [place] [address] 40095- 1946 Nov, PTSD (post-traumatic stress disorder) F43.10 and Bipolar I disorder with depression F31.9 [facility] [id number] [place] [address] 78457- 0179 Nov, PTSD (post-traumatic stress disorder) F43.10 ; Mood disorder F39 and Obsessive-compulsive disorder, unspecified type F42.9 [facility] [id number] [place] [address] 42849- 0877 Nov, PTSD (post-traumatic stress disorder) F43.10 and Bipolar I disorder with depression F31.9 [facility] [id number] [place] [address] 45367- 4060 Nov, PTSD (post-traumatic stress disorder) F43.10 and Bipolar I disorder with depression F31.9 [facility] [id number] [place] [address] 74485 -3995 Nov, [facility] [id number] [place] [address] 78472- 6173 Nov, PTSD (post-traumatic stress disorder) F43.10 and Bipolar I disorder with depression F31.9 [facility] [id number] [place] [address] 39193- 9329 Nov, PTSD (post-traumatic stress disorder) F43.10 and Bipolar I disorder with depression F31.9 [facility] [id number] [place] [address] 43797- 3529 Oct, [facility] [id number] [place] [address] 62439- 3813 Oct, PTSD (post-traumatic stress disorder) F43.10 ; Mood disorder F39 and Obsessive-compulsive disorder, unspecified type F42.9 [facility] [id number] [place] [address] 00887- 3713 Oct, PTSD (post-traumatic stress disorder) F43.10 and Bipolar I disorder with depression F31.9 [facility] [id number] [place] [address] 32812- 2460 Oct, PTSD (post-traumatic stress disorder) F43.10 and Bipolar I disorder with depression F31.9 [facility] [address], [place] [address]- 9286 Oct, PTSD (post-traumatic stress disorder) F43.10 ; Mood disorder F39 and Obsessive-compulsive disorder, unspecified type F42.9 [facility] [address], [place] [address]- 4367 Oct, [facility] [id number] [place] [address] 91284- 0923 Oct, PTSD (post-traumatic stress disorder) F43.10 and Bipolar I disorder with depression F31.9 [place] [address], [place] [address]- 5137 Oct, PTSD (post-traumatic stress disorder) F43.10 ; Mood disorder F39 and Obsessive-compulsive disorder, unspecified type F42.9 [facility] [address], [place] [address]- 6698 Sep, PTSD (post-traumatic stress disorder) F43.10 and Bipolar I disorder with depression F31.9 [facility] [address], [place] [address]- 8039 Sep, PTSD (post-traumatic stress disorder) F43.10 ; Mood disorder F39 and Obsessive-compulsive disorder, unspecified type F42.9 [facility] [address], [place] [address]- 1862 Sep, PTSD (post-traumatic stress disorder) F43.10 and Bipolar I disorder with depression F31.9 [place] [address], [place] [address]- 3506 Sep, PTSD (post-traumatic stress disorder) F43.10 and Bipolar I disorder with depression F31.9 [facility] [address], [place] [address]- 7960 August, PTSD (post-traumatic stress disorder) F43.10 and Bipolar I disorder with depression F31.9 [facility] [address] [place] [address] 61009 -0108 August, Pharyngitis due to other organism J02.8 [facility] [address] [place] [address] 91405- 3887 August, PTSD (post-traumatic stress disorder) F43.10 ; Bipolar 1 disorder, mixed F31.60 and 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 [facility] [address] [place] [address] 74937- 9965 August, PTSD (post-traumatic stress disorder) F43.10 and Bipolar I disorder with depression F31.9 [facility] [address], [place] [address]- 2241 Jul, PTSD (post-traumatic stress disorder) F43.10 and Bipolar I disorder with depression F31.9 [facility] [id number] [place] [address] 09775- 8178 Jul, PTSD (post-traumatic stress disorder) F43.10 and Bipolar I disorder with depression F31.9 [facility] [address], [place] [address]- 3012 Jul, PTSD (post-traumatic stress disorder) F43.10 and Bipolar I disorder with depression F31.9 [facility] [address] [place] [address] 24555- 2174 Jul, Other alf (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.899 [facility] [id number] [place] [address] 70157- 4199 Jun, PTSD (post-traumatic stress disorder) F43.10 and Bipolar I disorder with depression F31.9 [facility] [address], [place] [address]- 3860 Jun, Bipolar 1 disorder, mixed F31.60 ; PTSD (post-traumatic stress disorder) F43.10 and Other alf (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.899 [place] [id number] [place] [address] 11803- 9931 Jun, PTSD (post-traumatic stress disorder) F43.10 and Depression , unspecified depression type F32.9 [place] [address] 17802- 9472 Jun, PTSD (post-traumatic stress disorder) F43.10 and Depression , unspecified depression type F32.9 [place] [address] 21418- 7202 Jun, PTSD (post-traumatic stress disorder) F43.10 and Depression , unspecified depression type F32.9 [facility] [place] [address] 57178 -3010 May, Fever, unspecified fever cause R50.9 and Gastroenteritis K52.9 [place] [address] 59733- 2928 Mar, Sprain of other ligament of right ankle, subsequent encounter S93.491D [place] [address] 57505- 4462 Mar, [facility] [place] [address] 40792 -5374 Feb, Scabies infestation B86 [place] [address] 32530- 3317 Feb, Dental caries K02.9 [place] [address] 66115- 3178 Jan, [facility] [address] 63256 -2135 Jan, Pharyngitis, unspecified etiology J02.9 [place] [address] 83836- 0915 Jan, [place] [address] [place] [address] 78884- 4456 Jan, Bipolar affective disorder, remission status unspecified F31.9 [place] [id number] [place] [address] 33989- 7671 Jan, Encounter for dental examination and cleaning without abnormal findings Z01.20 [place] [id number] [place] [address] 33235- 8036 Jan, Bipolar affective disorder, remission status unspecified F31.9 [place] [id number] [place] [address] 99490- 8641 29 Dec, 2015 Bipolar affective disorder, remission status unspecified F31.9 and Depression, unspecified depression type F32.9 [place] [id number] [place] [address] 06409- 3991 Dec, Unspecified mood [affective] disorder F39 and Generalized anxiety disorder F41.1 [place] [id number] [place] [address] 27100- 8253 08 Dec, 2015 Depression, unspecified depression type F32.9 [place] [id number] [place] [address] 99567- 4668 Nov, Dental caries K02.9 [place] [id number] [place] [address] 06746- 0783 Nov, Dental examination Z01.20 [place] [id number] [place] [address] 63520- 9963 Sep, Bipolar affective disorder, remission status unspecified F31.9 [place] [id number] [place] [address] 55212- 5288 August, Tension headache G44.209 [facility] [id number] [place] [address] 25479 -7518 Jul, [facility] [id number] [place] [address] 47517 -0997 Jul, Upper respiratory infection J06.9 and Gastroenteritis K52.9 [facility] [id number] [place] [address] 99997- 2486 Jun, Bronchitis J40 [facility] [id number] [place] [address] 80593 -4305 Feb, Thoracic back pain M54.6 and Left shoulder pain M25.512 [facility] [id number] [place] [address] 30061- 8385 Feb, [facility] [id number] [place] [address] 77454- 6870 Jul, [facility] [id number] [place] [address] 36928- 2053 Jul, [facility] [id number] [place] [address] 68714- 5092 Apr, [facility] [id number] [place] [address] 59439- 9912 Apr, [facility] [id number] [place] [address] 93925- 6555 Apr, [facility] [id number] [place] [address] 15683- 0668 Apr, [facility] [id number] [place] [address] 15983- 1488 Mar, [facility] [id number] [place] [address] 84287- 1261 Mar, [facility] [id number] [place] [address] 53062- 6139 Mar, [facility] [id number] [place] [address] 28745- 1702 Mar, [facility] [id number] [place] [address] 94073- 8470 Feb, [facility] [id number] [place] [address], [place] [address]- 9184 17 Feb, 2014 [facility] [place] [facility] [address] [id number] [place] [address]- 1536 Feb, [facility] [place] [facility] [address] [id number] [place] [address]- 2928 Feb, [facility] [place] [facility] [address] [id number] [place] [address]- 8356 15 Jan, 2014 [facility] [place] [facility] [address] [id number] [place] [address]- 8179 15 Jan, 2014 [facility] [place] [facility] [address] [id number] [place] [address]- 9759 14 Jan, 2014 [facility] [place] [facility] [address] [id number] [place] [address]- 2035 Jan, [facility] [place] [facility] [address] [id number] [place] [address]- 8713 Jan, [facility] [place] [facility] [address] [id number] [place] [address]- 5753 Jan, [facility] [place] [facility] [address] [id number] [place] [address]- 5215 Dec, [facility] [place] [facility] [address] [id number] [place] [address]- 2720 Dec, [facility] [place] [facility] [address] [id number] [place] [address]- 3942 Nov, [facility] [place] [facility] [address] [id number] [place] [address]- 9930 Nov, [facility] [place] [facility] [address] [id number] [place] [address]- 3792 Nov, [facility] [place] [facility] [address] [id number] [place] [address]- 6556 Nov, [facility] [place] [facility] [address] [id number] [place] [address]- 1221 Nov, [facility] [place] [facility] [address] [id number] [place] [address]- 7967 Nov, [facility] [place] [facility] [address] [id number] [place] [address]- 4822 Nov, [facility] [place] [facility] [address] [id number] [place] [address]- 4674 Nov, [facility] [place] [facility] [address] [id number] [place] [address]- 4302 Nov, [facility] [place] [facility] [address] [id number] [place] [address]- 0438 Oct, [facility] [place] [facility] [address] [id number] [place] [address]- 1855 Oct, [facility] [place] [facility] [address] [id number] [place] [address]- 6631 Oct, [facility] [place] [facility] [address] [id number] [place] [address]- 8946 Oct, [facility] [place] [facility] [address] [id number] [place] [address]- 5114 Oct, [facility] [place] [facility] [address] [id number] [place] [address]- 9468 Oct, [facility] [place] [facility] [address] [id number] [place] [address]- 7880 Oct, [facility] [place] [facility] [address] [id number] [place] [address]- 9437 Oct, [facility] [place] [facility] [address] [id number] [place] [address] Oct, [facility] [place] [facility] [address] [id number] [place] [address] Oct, [facility] [place] [facility] [address] [id number] [place] [address] Oct, [facility] [place] [facility] [address] [id number] [place] [address] Oct, 2013 [facility] [place] [facility] [address] [id number] [place] [address] Oct, 2013 [facility] [place] [facility] [address] [id number] [place] [address] Oct, 2013 [facility] [place] [facility] [address] [id number] [place] [address] Oct, 2013 [facility] [place] [facility] [address] [id number] [place] [address] Oct, 2013 [facility] [place] [facility] [address] [id number] [place] [address] Oct, 2013 [facility] [place] [facility] [address] [id number] [place] [address] Oct, [facility] [place] [facility] [address] [id number] [place] [address] Oct, [facility] [place] [facility] [address] [id number] [place] [address] Sep, [facility] [place] [facility] [address] [id number] [place] [address] Sep, [facility] [facility] [address] [id number] [place] [address] Sep, [facility] [place] [facility] [address] [id number] [place] [address] Sep, [facility] [place] [facility] [address] [id number], [place] [address] Feb, [facility] [place] [facility] [address] [id number] [place] [address] Feb, [facility] [place] [facility] [address] [id number] [place] [address] Dec, [facility] [place] [facility] [address] [id number] [place] [address] 2009 Dec, [facility] [place] [facility] [address] [id number] [place] [address] Nov, [facility] [address] [id number] [place] [address] Nov, [facility] [address] [id number] [place] [address] Nov, [facility] [address] [id number] [place] [address] Nov, [facility] [address] [id number] [place] [address] Nov, [facility] [address] [id number] [place] [address] Nov, [facility] [address] [id number] [place] [address] Oct, [facility] [address] [id number] [place] [address] Apr, [facility] [address] [id number] [place] [address] August, [facility] [address] [id number] [place] [address] August, [facility] [address] [id number] [place] [address] August, [facility] [address] [id number] [place] [address] Jul, [facility] [address] [id number] [place] [address] Jun, [facility] [address] [id number] [place] [address] 27 Jun, 2011 [facility] [address] [id number] [place] [address] 14 Jun, 2011 [facility] [address] [id number] [place] [address] 14 Jun, 2011 [facility] [address] [id number] [place] [address] Jun, [facility] [place] [facility] [address] [id number] [place] [address] Jun, [facility] [place] [facility] [address] [id number] [place] [address] 21 May, 2011 [facility] [place] [facility] [address] [id number] [place] [address] 16 May, 2011 [facility] [place] [facility] [address] [id number] [place] [address] May, [facility] [place] [facility] [address] [id number] [place] [address] 07 May, 2011 [facility] [facility] [address] [facility] [id number] [place] [address] 06 May, 2011 [facility] [place] [facility] [address] [id number] [place] [address] 06 May, 2011 [facility] [place] [facility] [address] [id number] [place] [address] Apr, [facility] [place] [facility] [address] [facility] [id number] [place] [address] 07 Mar, 2011 [facility] [address] [id number], [place] [address] 06 Mar, 2011 [facility] [address] [id number], [place] [address] 02 Feb, 2011 [facility] [place] [facility] [address] [id number] [place] [address] 13 Jan, 2011 [facility] [facility] [address] [id number] [place] [address] 31 Mar, 2009 [facility] [address] [facility] [id number] [place] [address] 15 Mar, 2009 [facility] [place] [facility] [address] [facility] [id number], [place] [address] Mar, [facility] [address] [id number], [place] [address] Mar, [facility] [address] [id number] [address] [address] Mar, [facility] [address] [id number] [address] [address] Feb, [facility] [id number], [place] [address] Feb, [facility] [address] [id number] [address] Nov, [facility] [address] [id number], [place] [address] May, IMMUNIZATIONS No Known Immunizations SOCIAL HISTORY Never Assessed REASON FOR VISIT flu symptoms Pt c/o cough with chest burning for about a week SURY Reardon PLAN OF CARE Activity Details Follow Up prn Reason: VITAL SIGNS Height 64 in 2017-06-26 Weight 292.6 lbs 2017-06-26 Temperature 98.3 degrees Fahrenheit 2017-06-26 Heart Rate 88 bpm 2017-06-26 Respiratory Rate 22 2017-06-26 Oximetry 99 % 2017-06-26 BMI 50.22 kg/m2 2017-06-26 Blood pressure systolic 136 mmHg 2017-06-26 Blood pressure diastolic 90 mmHg 2017-06-26 MEDICATIONS Medication Instructions Dosage Frequency Start Date End Date Duration Status Flonase Allergy Relief 50 MCG/ACT Nasally twice a day 1 spray in each nostril 12h 15 Jun, 2017 07 days Active Sprintec 28 0.25-35 MG-MCG Orally Once a day 1 tablet 24h Dec, 30 day(s) Active Mirena 20 MCG/24HR Not-Taking [place] Carbonate 300 MG Orally 3 times a day 1 capsule 8h Mar, 30 days Active Trazodone HCl 100 mg Orally Once a day at bedtine for sleep 1/2 to 1 tablet Mar, 30 day(s) Active PredniSONE 5 MG (21) Orally Once a day with food take each days dose at the same time as directed Jun, Active Celexa 20 mg Orally Once a day 1 tablet 24h Active Latuda 60 mg Orally Once a day at supper with [...]
--- OUTSIDE RECORDS SUMMARY | 2017-12-25 20:15 | XMS REPORT ---
Author Author OLY DURBIN [facility] Address [address] [place] [address] Care Team Providers Care Continuity Reader Name Role Phone OLY DURBIN Unavailable PROBLEMS Type Condition ICD9-CM Code [id number] Code Onset Dates Condition Status SNOMED Code Problem Bipolar I disorder with depression F31.9 Active 67161658 Problem Amenorrhea N91.2 Active 63173151 Problem Social anxiety disorder F40.10 Active 00259487 Problem Obsessive-compulsive disorder, unspecified type F42.9 Active 552249665 Problem PTSD (post-traumatic stress disorder) F43.10 Active 75982762 Problem Mood disorder F39 Active 98156691 Problem 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 Active 42907659 ALLERGIES No Information ENCOUNTERS Encounter Location Date Diagnosis [facility] [id number] [place] [address] 96918- 5493 Nov, [facility] [id number] [place] [address] 69265- 4222 Nov, [facility] [id number] [place] [address] 23334- 0481 Nov, [facility] [id number] [place] [address] 60714- 0740 Oct, [facility] [id number] [place] [address] 90293- 2240 Oct, PTSD (post-traumatic stress disorder) F43.10 and Bipolar I disorder with depression F31.9 [facility] [id number] [place] [address] 37717- 4235 Oct, [facility] [address], [place] [address]- 3722 Oct, PTSD (post-traumatic stress disorder) F43.10 and Bipolar I disorder with depression F31.9 [facility] [address] [address]- 3736 Oct, [facility] [id number] [place] [address] 59690- 3164 Sep, Bipolar I disorder with depression F31.9 [facility] [id number] [place] [address] 70143- 3318 Sep, Bipolar I disorder with depression F31.9 ; PTSD (post- traumatic stress disorder) F43.10 ; 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 ; Social anxiety disorder F40.10 and BMI 50.0-59.9, adult Z68.43 [place] [facility] [id number] [place] [address] 97267- 9302 Sep, PTSD (post-traumatic stress disorder) F43.10 and Bipolar I disorder with depression F31.9 [facility] [id number] [place] [address] 05479- 8046 Sep, PTSD (post-traumatic stress disorder) F43.10 and Bipolar I disorder with depression F31.9 [facility] [id number] [place] [address] 14849- 6904 August, PTSD (post-traumatic stress disorder) F43.10 and Bipolar I disorder with depression F31.9 [facility] [id number] [place] [address] 67771- 6616 August, Bipolar I disorder with depression F31.9 ; PTSD (post- traumatic stress disorder) F43.10 ; 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 ; Social anxiety disorder F40.10 and BMI 50.0-59.9, adult Z68.43 [facility] [id number] [place] [address] 94063- 2698 August, [facility] [id number] [place] [address] 86935- 2093 August, Bipolar I disorder with depression F31.9 ; PTSD (post- traumatic stress disorder) F43.10 ; 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 ; Social anxiety disorder F40.10 and BMI 50.0-59.9, adult Z68.43 [facility] [id number] [place] [address] 28588- 0291 August, [facility] [id number] [place] [address] 32136- 4695 August, [place] [address] 86304- 0322 August, PTSD (post-traumatic stress disorder) F43.10 and Bipolar I disorder with depression F31.9 [facility] [facility] [address] 21692- 3855 August, [facility] [id number] [place] [address] 89085- 1310 Jul, Bipolar I disorder with depression F31.9 ; PTSD (post- traumatic stress disorder) F43.10 ; 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 ; Social anxiety disorder F40.10 and BMI 50.0-59.9, adult Z68.43 [place] [address] 86452- 3569 18 Jul, 2017 PTSD (post-traumatic stress disorder) F43.10 and Bipolar I disorder with depression F31.9 [facility] [facility] [id number] [place] [address] 43653- 9440 Jul, Pelvic pain R10.2 ; Amenorrhea N91.2 and BMI 50.0-59.9, adult Z68.43 [facility] [facility] [id number] [place] [address] 17116- 2651 Jun, BMI 50.0-59.9, adult Z68.43 ; Bipolar I disorder with depression F31.9 ; PTSD (post-traumatic stress disorder) F43.10 and 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 [facility] [id number] [place] [address] 79279 -6215 Jun, Other viral agents as the cause of diseases classified elsewhere B97.89 ; Other specified respiratory disorders J98.8 ; Bronchitis J40 and Cough R05 [facility] [id number] [place] [address] 63893- 9975 Jun, PTSD (post-traumatic stress disorder) F43.10 [facility] [id number] [place] [address] 31957- 8744 Jun, PTSD (post-traumatic stress disorder) F43.10 and Bipolar I disorder with depression F31.9 [facility] [id number] [place] [address] 04206- 7422 13 May, 2017 PTSD (post-traumatic stress disorder) F43.10 and Bipolar I disorder with depression F31.9 [place] [facility] [id number] [place] [address] 47936- 0435 May, [place] [facility] [address] 83550- 3220 May, PTSD (post-traumatic stress disorder) F43.10 and Bipolar I disorder with depression F31.9 [facility] [facility] [id number] [place] [address] 82403- 9566 Apr, PTSD (post-traumatic stress disorder) F43.10 and Bipolar I disorder with depression F31.9 [facility] [id number] [place] [address] 40636- 5293 Apr, PTSD (post-traumatic stress disorder) F43.10 and Bipolar I disorder with depression F31.9 [facility] [id number] [place] [address] 02150- 7010 Mar, PTSD (post-traumatic stress disorder) F43.10 ; Obsessive- compulsive disorder, unspecified type F42.9 ; Bipolar I disorder with depression F31.9 and Other oysterman (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.899 [place] [id number] [place] [address] 82143- 2280 Mar, PTSD (post-traumatic stress disorder) F43.10 and Bipolar I disorder with depression F31.9 [facility] [id number] [place] [address] 28646- 0022 Feb, PTSD (post-traumatic stress disorder) F43.10 and Bipolar I disorder with depression F31.9 [facility] [address], [place] [address]- 4052 Feb, PTSD (post-traumatic stress disorder) F43.10 and Bipolar I disorder with depression F31.9 [facility] [id number] [place] [address] 32945 -1231 Jan, Strep pharyngitis J02.0 [facility] [id number] [place] [address] 29997- 2042 Jan, [facility] [id number] [place] [address] 38676- 8085 Jan, [facility] [id number] [place] [address] 12832- 1275 Jan, PTSD (post-traumatic stress disorder) F43.10 and Bipolar I disorder with depression F31.9 [facility] [id number] [place] [address] 69152- 4434 Jan, PTSD (post-traumatic stress disorder) F43.10 and Bipolar I disorder with depression F31.9 [facility] [id number] [place] [address] 48320- 6786 Jan, Other senior care (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.899 [facility] [id number] [place] [address] 95788- 9434 Jan, PTSD (post-traumatic stress disorder) F43.10 ; Obsessive- compulsive disorder, unspecified type F42.9 ; Bipolar I disorder with depression F31.9 and Other oysterman (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.899 [facility] [id number] [place] [address] 80862- 2270 Dec, Encounter for IUD removal Z30.432 and control counseling Z30.09 [facility] [id number] [place] [address] 58239- 1520 Dec, PTSD (post-traumatic stress disorder) F43.10 ; Obsessive- compulsive disorder, unspecified type F42.9 and Bipolar I disorder with depression F31.9 [facility] [id number] [place] [address] 33406- 7718 Dec, PTSD (post-traumatic stress disorder) F43.10 and Bipolar I disorder with depression F31.9 [facility] [id number] [place] [address] 30827- 1008 Dec, PTSD (post-traumatic stress disorder) F43.10 and Bipolar I disorder with depression F31.9 [facility] [id number] [place] [address] 09833- 9591 Dec, Mood disorder F39 [facility] [address] 54204- 1329 Dec, PTSD (post-traumatic stress disorder) F43.10 ; Mood disorder F39 and Obsessive-compulsive disorder, unspecified type F42.9 [facility] [id number] [place] [address] 28305- 9398 Dec, PTSD (post-traumatic stress disorder) F43.10 and Bipolar I disorder with depression F31.9 [facility] [id number] [place] [address] 71849 -7220 Dec, Adverse drug reaction, initial encounter T88.7XXA [facility] [id number] [place] [address] 05522- 3161 Dec, [facility] [id number] [place] [address] 94664- 1405 Nov, PTSD (post-traumatic stress disorder) F43.10 and Bipolar I disorder with depression F31.9 [facility] [address] 75589- 1066 Nov, PTSD (post-traumatic stress disorder) F43.10 ; Mood disorder F39 and Obsessive-compulsive disorder, unspecified type F42.9 [facility] [id number] [place] [address] 21816- 6586 Nov, PTSD (post-traumatic stress disorder) F43.10 and Bipolar I disorder with depression F31.9 [facility] [id number] [place] [address] 42079- 3063 Nov, PTSD (post-traumatic stress disorder) F43.10 and Bipolar I disorder with depression F31.9 [facility] [address] [facility] [id number] [place] [address] 53583 -4621 Nov, [facility] [id number] [place] [address] 97352- 8619 Nov, PTSD (post-traumatic stress disorder) F43.10 and Bipolar I disorder with depression F31.9 [facility] [id number] [place] [address] 94930- 8491 Nov, PTSD (post-traumatic stress disorder) F43.10 and Bipolar I disorder with depression F31.9 [facility] [id number] [place] [address] 00712- 4708 Oct, [facility] [id number] [place] [address] 64890- 0857 Oct, PTSD (post-traumatic stress disorder) F43.10 ; Mood disorder F39 and Obsessive-compulsive disorder, unspecified type F42.9 [facility] [id number] [address]- 1370 Oct, PTSD (post-traumatic stress disorder) F43.10 and Bipolar I disorder with depression F31.9 [facility] [address] [facility] [id number] [address]- 6463 Oct, PTSD (post-traumatic stress disorder) F43.10 and Bipolar I disorder with depression F31.9 [facility] [address], [place] [address]- 7198 Oct, PTSD (post-traumatic stress disorder) F43.10 ; Mood disorder F39 and Obsessive-compulsive disorder, unspecified type F42.9 [facility] [address], [place] [address]- 3582 Oct, [facility] [address] [place] [address]- 6575 Oct, PTSD (post-traumatic stress disorder) F43.10 and Bipolar I disorder with depression F31.9 [facility] [address], [place] [address]- 3179 Oct, PTSD (post-traumatic stress disorder) F43.10 ; Mood disorder F39 and Obsessive-compulsive disorder, unspecified type F42.9 [facility] [address], [place] [address]- 1572 Sep, PTSD (post-traumatic stress disorder) F43.10 and Bipolar I disorder with depression F31.9 [facility] [address], [place] [address]- 7805 Sep, PTSD (post-traumatic stress disorder) F43.10 ; Mood disorder F39 and Obsessive-compulsive disorder, unspecified type F42.9 [place] [facility] [address], [place] [address]- 2907 Sep, PTSD (post-traumatic stress disorder) F43.10 and Bipolar I disorder with depression F31.9 [facility] [address], [place] [address]- 2704 Sep, PTSD (post-traumatic stress disorder) F43.10 and Bipolar I disorder with depression F31.9 [facility] [address], [place] [address]- 2550 August, PTSD (post-traumatic stress disorder) F43.10 and Bipolar I disorder with depression F31.9 [facility] [id number] [place] [address] 09151 -7291 August, Pharyngitis due to other organism J02.8 [facility] [id number] [place] [address] 75231- 5236 August, PTSD (post-traumatic stress disorder) F43.10 ; Bipolar 1 disorder, mixed F31.60 and Other oysterman (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.899 [facility] [id number] [place] [address] 84994- 7531 August, PTSD (post-traumatic stress disorder) F43.10 and Bipolar I disorder with depression F31.9 [facility] [id number] [place] [address] 76661- 3500 Jul, PTSD (post-traumatic stress disorder) F43.10 and Bipolar I disorder with depression F31.9 [facility] [id number] [place] [address] 61918- 5946 Jul, PTSD (post-traumatic stress disorder) F43.10 and Bipolar I disorder with depression F31.9 [facility] [id number] [place] [address] 51556- 4094 Jul, PTSD (post-traumatic stress disorder) F43.10 and Bipolar I disorder with depression F31.9 [facility] [address], [place] [address]- 1396 Jul, Other oysterman (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.899 [facility] [id number] [place] [address] 83277- 2182 Jun, PTSD (post-traumatic stress disorder) F43.10 and Bipolar I disorder with depression F31.9 [facility] [id number] [place] [address] 23451- 2118 Jun, Bipolar 1 disorder, mixed F31.60 ; PTSD (post-traumatic stress disorder) F43.10 and Other senior care (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.899 [facility] [id number] [place] [address] 72402- 5823 Jun, PTSD (post-traumatic stress disorder) F43.10 and Depression , unspecified depression type F32.9 [place] [address] 14945- 7800 Jun, PTSD (post-traumatic stress disorder) F43.10 and Depression , unspecified depression type F32.9 [place] [address] 67212- 6944 Jun, PTSD (post-traumatic stress disorder) F43.10 and Depression , unspecified depression type F32.9 [facility] [address] 79991 -0676 May, Fever, unspecified fever cause R50.9 and Gastroenteritis K52.9 [place] [address] 12189- 2362 Mar, Sprain of other ligament of right ankle, subsequent encounter S93.491D [place] [address] 23812- 9951 Mar, [facility] [address] 75589 -0147 Feb, Scabies infestation B86 [place] [address] 74215- 8193 Feb, Dental caries K02.9 [place] [address] 90274- 5784 Jan, [facility] [address] 50473 -1491 Jan, Pharyngitis, unspecified etiology J02.9 [place] [address] 17938- 7998 Jan, [facility] [address] 38933- 3297 Jan, Bipolar affective disorder, remission status unspecified F31.9 [facility] [id number] [place] [address] 59171- 6210 Jan, Encounter for dental examination and cleaning without abnormal findings Z01.20 [facility] [id number] [place] [address] 15438- 7025 Jan, Bipolar affective disorder, remission status unspecified F31.9 [place] [id number] [place] [address] 85050- 3136 29 Dec, 2015 Bipolar affective disorder, remission status unspecified F31.9 and Depression, unspecified depression type F32.9 [place] [id number] [place] [address] 39986- 7150 Dec, Unspecified mood [affective] disorder F39 and Generalized anxiety disorder F41.1 [place] [id number] [place] [address] 74902- 7386 08 Dec, 2015 Depression, unspecified depression type F32.9 [place] [id number] [place] [address] 05948- 1212 Nov, Dental caries K02.9 [place] [id number] [place] [address] 34813- 7340 Nov, Dental examination Z01.20 [place] [id number] [place] [address] 12203- 1044 24 Sep, 2015 Bipolar affective disorder, remission status unspecified F31.9 [place] [id number] [place] [address] 71510- 4817 August, Tension headache G44.209 [facility] [id number] [place] [address] 90731 -5734 Jul, [facility] [id number] [place] [address] 82490 -1064 Jul, Upper respiratory infection J06.9 and Gastroenteritis K52.9 [place] [id number] [place] [address] 06744- 0081 Jun, Bronchitis J40 [facility] [address], [place] [address] -6206 Feb, Thoracic back pain M54.6 and Left shoulder pain M25.512 [facility] [id number] [address]- 4274 Feb, [facility] [id number] [place] [address] 68036- 7670 Jul, [facility] [id number] [place] [address], [place] [address]- 7497 Jul, [facility] [id number] [place] [address], [place] [address]- 2277 Apr, [facility] [id number] [place] [address] 95656- 5635 Apr, [facility] [id number] [place] [address] 52892- 5922 Apr, [facility] [id number] [place] [address] 29840- 3670 Apr, [facility] [id number] [place] [address] 03949- 6005 Mar, [facility] [id number] [address]- 9984 Mar, [facility] [id number] [place] [address] 31039- 3798 Mar, [facility] [address], [place] [address]- 2318 Mar, [facility] [id number] [place] [address] 878653- 6011 Feb, [facility] [address], [place] [address]- 1346 Feb, [facility] [id number] [place] [address] 41565- 7224 Feb, [facility] [place] [facility] [address] [id number] [place] [address]- 8959 Feb, [facility] [place] [facility] [address] [id number] [place] [address]- 8137 Jan, [facility] [place] [facility] [address] [id number] [place] [address]- 3738 15 Jan, 2014 [facility] [place] [facility] [address] [id number] [place] [address]- 8715 Jan, [facility] [place] [facility] [address] [id number] [place] [address]- 7892 Jan, [facility] [place] [facility] [address] [id number] [place] [address]- 3029 Jan, [facility] [place] [facility] [address] [id number] [place] [address]- 1290 Jan, [facility] [place] [facility] [address] [id number] [place] [address]- 8053 Dec, [facility] [place] [facility] [address] [id number] [place] [address]- 3097 Dec, [facility] [place] [facility] [address] [id number] [place] [address]- 9355 Nov, [facility] [place] [facility] [address] [id number], [place] [address]- 1727 Nov, [facility] [place] [facility] [address] [id number], [place] [address]- 9267 Nov, [facility] [place] [facility] [address] [id number] [place] [address]- 9786 Nov, [facility] [place] [facility] [address] [id number] [place] [address]- 5764 Nov, [facility] [place] [facility] [address] [id number] [place] [address]- 8655 Nov, [facility] [place] [facility] [address] [id number], [place] [address]- 3558 Nov, [facility] [place] [facility] [address] [id number] [place] [address]- 2010 Nov, [facility] [place] [facility] [address] [id number] [place] [address]- 1066 Nov, [facility] [place] [facility] [address] [id number] [place] [address]- 0220 Oct, [facility] [place] [facility] [address] [id number] [place] [address] Oct, [facility] [place] [facility] [address] [id number] [place] [address] Oct, [facility] [place] [facility] [address] [id number] [place] [address] Oct, [facility] [place] [facility] [address] [id number] [place] [address] Oct, [facility] [place] [facility] [address] [id number] [place] [address] Oct, [facility] [place] [facility] [address] [id number] [place] [address] Oct, [facility] [place] [facility] [address] [id number] [place] [address] Oct, [facility] [place] [facility] [address] [id number] [place] [address] Oct, [facility] [place] [facility] [address] [id number] [place] [address] Oct, [facility] [place] [facility] [address] [id number] [place] [address] Oct, [facility] [place] [facility] [address] [id number] [place] [address] Oct, [facility] [place] [facility] [address] [id number] [place] [address] Oct, [facility] [place] [facility] [address] [id number] [place] [address] Oct, 2013 [facility] [place] [facility] [address] [id number] [place] [address] Oct, 2013 [facility] [place] [facility] [address] [id number] [place] [address] Oct, 2013 [facility] [place] [facility] [address] [id number] [place] [address] Oct, [facility] [place] [facility] [address] [id number] [place] [address] Oct, [facility] [place] [facility] [address] [id number] [place] [address] Oct, [facility] [place] [facility] [address] [id number] [place] [address] Sep, [facility] [place] [facility] [address] [id number] [place] [address] Sep, [facility] [place] [facility] [address] [id number] [place] [address] Sep, [facility] [place] [facility] [address] [id number] [place] [address] Sep, [facility] [place] [facility] [address] [id number] [place] [address] Feb, [facility] [place] [facility] [address] [id number] [place] [address] Feb, [facility] [place] [facility] [address] [id number] [place] [address] Dec, [facility] [place] [facility] [address] [id number] [place] [address] Dec, [facility] [place] [facility] [address] [id number] [place] [address] Nov, [facility] [place] [facility] [address] [id number] [place] [address] Nov, [facility] [address] [id number] [place] [address] Nov, [facility] [place] [facility] [address] [id number] [place] [address] Nov, [facility] [place] [facility] [address] [id number] [place] [address] Nov, [facility] [place] [facility] [address] [id number] [place] [address] Nov, [facility] [place] [facility] [address] [id number] [place] [address] Oct, [facility] [place] [facility] [address] [id number] [place] [address] Apr, [facility] [place] [facility] [address] [id number] [place] [address] August, [facility] [place] [facility] [address] [id number] [place] [address] August, [facility] [place] [facility] [address] [id number] [place] [address] August, [facility] [place] [facility] [address] [id number] [place] [address] Jul, [facility] [place] [facility] [address] [id number] [place] [address] Jun, [facility] [place] [facility] [address] [id number] [place] [address] Jun, [facility] [place] [facility] [address] [id number] [place] [address] 14 Jun, 2011 [facility] [place] [facility] [address] [id number] [place] [address] 14 Jun, 2011 [facility] [place] [facility] [address] [id number] [place] [address] Jun, [facility] [place] [facility] [address] [id number] [place] [address] Jun, [facility] [address] [id number] [place] [address] May, 2011 [facility] [place] [facility] [address] [id number] [place] [address] 16 May, 2011 [facility] [address] [id number] [place] [address] 09 May, 2011 [facility] [place] [facility] [address] [id number] [place] [address] 07 May, 2011 [facility] [address] [id number] [place] [address] 06 May, 2011 [facility] [address] [facility] [id number] [place] [address] 06 May, 2011 [facility] [address] [facility] [id number] [place] [address] Apr, [facility] [address] [id number] [place] [address] 07 Mar, 2011 [facility] [place] [facility] [address] [facility] [id number] [place] [address] 06 Mar, 2011 [facility] [address] [facility] [id number] [place] [address] 02 Feb, 2011 [facility] [place] [facility] [address] [facility] [id number] [place] [address] 13 Jan, 2011 [facility] [place] [facility] [address] [id number] [place] [address] 31 Mar, 2009 [facility] [place] [facility] [address] [id number] [place] [address] 15 Mar, 2009 [facility] [place] [facility] [address] [facility] [id number] [place] [address] 10 Mar, 2009 [facility] [place] [facility] [address] [facility] [id number] [place] [address] Mar, [facility] [address] [facility] [id number], [place] [address] Mar, [facility] [id number] [place] [address] Feb, [facility] [address] [id number], [place] [address] Feb, [facility] [id number], [place] [address] Nov, [facility] [address] [facility] [id number], [place] [address] May, IMMUNIZATIONS No Known Immunizations SOCIAL HISTORY Never Assessed REASON FOR VISIT Follow-up PTSD/Bipolar Disorder PLAN OF CARE Activity Details Follow Up Next available Reason: Follow-up VITAL SIGNS MEDICATIONS Unknown Medications RESULTS No Results PROCEDURES Procedure Date Ordered Result Body Site Psychotherapy, patient &/family, 45 minutes, established patient June 24, 2017 INSTRUCTIONS MEDICATIONS ADMINISTERED No Known Medications MEDICAL (GENERAL) HISTORY Type Description Date Medical History HELP syndrome Medical History bi-polar Medical History hypertension Medical History hx of seizure x1, isolated Surgical History gallbladder 10/2013 Surgical History 03/2014 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
--- OUTSIDE RECORDS SUMMARY | 2017-12-25 20:16 | XMS REPORT ---
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 Role Phone [place] Unavailable PROBLEMS Type Condition ICD9-CM Code HBE11-BK Code Onset Dates Condition Status SNOMED Code Problem Bipolar I disorder with depression F31.9 Active 69623188 Problem Amenorrhea N91.2 Active 19255028 Problem Social anxiety disorder F40.10 Active 94717835 Problem Obsessive-compulsive disorder, unspecified type F42.9 Active 102454378 Problem PTSD (post-traumatic stress disorder) F43.10 Active 39066785 Problem Mood disorder F39 Active 56194639 Problem 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 Active 81108432 ALLERGIES No Information ENCOUNTERS Encounter Location Date Diagnosis [facility] [id number] [place] [address] 83612- 2950 Nov, [facility] [id number] [place] [address] 19934- 3524 Nov, [facility] [id number] [place] [address] 03430- 6478 Nov, [facility] [id number] [place] [address] 82901- 3200 Oct, [facility] [id number] [place] [address] 62075- 7058 Oct, PTSD (post-traumatic stress disorder) F43.10 and Bipolar I disorder with depression F31.9 [facility] [id number] [place] [address] 66067- 2784 Oct, [facility] [id number] [place] [address] 58350- 9361 Oct, PTSD (post-traumatic stress disorder) F43.10 and Bipolar I disorder with depression F31.9 [facility] [address], [place] [address] 5497 Oct, [facility] [address], [place] [address] 0272 Sep, Bipolar I disorder with depression F31.9 [facility] [id number] [place] [address] 15538- 7340 Sep, Bipolar I disorder with depression F31.9 ; PTSD (post- traumatic stress disorder) F43.10 ; 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 ; Social anxiety disorder F40.10 and BMI 50.0-59.9, adult Z68.43 [place] [id number] [place] [address] 96465- 1963 Sep, PTSD (post-traumatic stress disorder) F43.10 and Bipolar I disorder with depression F31.9 [place] [address] [place] [address] 23016- 4636 Sep, PTSD (post-traumatic stress disorder) F43.10 and Bipolar I disorder with depression F31.9 [place] [id number] [place] [address] 60834- 0897 August, PTSD (post-traumatic stress disorder) F43.10 and Bipolar I disorder with depression F31.9 [place] [address], [place] [address] 0628 August, Bipolar I disorder with depression F31.9 ; PTSD (post- traumatic stress disorder) F43.10 ; 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 ; Social anxiety disorder F40.10 and BMI 50.0-59.9, adult Z68.43 [facility] [address], [place] [address]- 6732 August, [facility] [address], [place] [address]- 7225 August, Bipolar I disorder with depression F31.9 ; PTSD (post- traumatic stress disorder) F43.10 ; 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 ; Social anxiety disorder F40.10 and BMI 50.0-59.9, adult Z68.43 [facility] [id number] [place] [address] 09278- 4208 August, [facility] [facility] [id number] [place] [address] 33174- 9169 August, [place] [address] 01002- 6277 August, PTSD (post-traumatic stress disorder) F43.10 and Bipolar I disorder with depression F31.9 [place] [address] 97031- 5983 August, [facility] [id number] [place] [address] 56584- 9674 Jul, Bipolar I disorder with depression F31.9 ; PTSD (post- traumatic stress disorder) F43.10 ; 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 ; Social anxiety disorder F40.10 and BMI 50.0-59.9, adult Z68.43 [place] [address] 29076- 7638 Jul, PTSD (post-traumatic stress disorder) F43.10 and Bipolar I disorder with depression F31.9 [facility] [id number] [place] [address] 83824- 8624 Jul, Pelvic pain R10.2 ; Amenorrhea N91.2 and BMI 50.0-59.9, adult Z68.43 [facility] [id number] [place] [address] 55585- 6382 Jun, BMI 50.0-59.9, adult Z68.43 ; Bipolar I disorder with depression F31.9 ; PTSD (post-traumatic stress disorder) F43.10 and 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 [facility] [id number] [place] [address] 40820 -0310 Jun, Other viral agents as the cause of diseases classified elsewhere B97.89 ; Other specified respiratory disorders J98.8 ; Bronchitis J40 and Cough R05 [place] [address] [place] [address] 17149- 2202 Jun, PTSD (post-traumatic stress disorder) F43.10 [facility] [id number] [place] [address] 76857- 3358 Jun, PTSD (post-traumatic stress disorder) F43.10 and Bipolar I disorder with depression F31.9 [facility] [id number] [place] [address] 182257- 2018 13 May, 2017 PTSD (post-traumatic stress disorder) F43.10 and Bipolar I disorder with depression F31.9 [facility] [facility] [id number] [place] [address] 77054- 6547 May, [facility] [id number] [place] [address] 14817- 9333 May, PTSD (post-traumatic stress disorder) F43.10 and Bipolar I disorder with depression F31.9 [facility] [id number] [place] [address] 16746- 5981 Apr, PTSD (post-traumatic stress disorder) F43.10 and Bipolar I disorder with depression F31.9 [place] [place] [id number] [place] [address] 86072- 3604 Apr, PTSD (post-traumatic stress disorder) F43.10 and Bipolar I disorder with depression F31.9 [place] [address] [place] [address] 74930- 9508 Mar, PTSD (post-traumatic stress disorder) F43.10 ; Obsessive- compulsive disorder, unspecified type F42.9 ; Bipolar I disorder with depression F31.9 and 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 [place] [id number] [place] [address] 45159- 8850 Mar, PTSD (post-traumatic stress disorder) F43.10 and Bipolar I disorder with depression F31.9 [facility] [address] [place] [address] 80466- 9616 Feb, PTSD (post-traumatic stress disorder) F43.10 and Bipolar I disorder with depression F31.9 [facility] [address], [place] [address]- 6478 Feb, PTSD (post-traumatic stress disorder) F43.10 and Bipolar I disorder with depression F31.9 [facility] [id number] [place] [address] 02808 -7252 Jan, Strep pharyngitis J02.0 [facility] [id number] [place] [address] 66880- 2456 Jan, [facility] [id number] [place] [address] 31600- 8221 Jan, [facility] [id number] [place] [address] 58481- 5925 Jan, PTSD (post-traumatic stress disorder) F43.10 and Bipolar I disorder with depression F31.9 [facility] [id number] [place] [address] 81519- 7222 Jan, PTSD (post-traumatic stress disorder) F43.10 and Bipolar I disorder with depression F31.9 [facility] [address] [place] [address] 33673- 0441 Jan, 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 [facility] [address] [place] [address] 17245- 9701 Jan, PTSD (post-traumatic stress disorder) F43.10 ; Obsessive- compulsive disorder, unspecified type F42.9 ; Bipolar I disorder with depression F31.9 and 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 [facility] [id number] [place] [address] 89337- 0160 Dec, Encounter for IUD removal Z30.432 and control counseling Z30.09 [facility] [id number] [place] [address] 07758- 7085 Dec, PTSD (post-traumatic stress disorder) F43.10 ; Obsessive- compulsive disorder, unspecified type F42.9 and Bipolar I disorder with depression F31.9 [facility] [address] 48234- 8546 Dec, PTSD (post-traumatic stress disorder) F43.10 and Bipolar I disorder with depression F31.9 [facility] [id number] [place] [address] 54763- 5543 Dec, PTSD (post-traumatic stress disorder) F43.10 and Bipolar I disorder with depression F31.9 [facility] [id number] [place] [address] 82668- 4606 Dec, Mood disorder F39 [facility] [address] 77638- 8954 Dec, PTSD (post-traumatic stress disorder) F43.10 ; Mood disorder F39 and Obsessive-compulsive disorder, unspecified type F42.9 [facility] [id number] [place] [address] 98364- 8418 Dec, PTSD (post-traumatic stress disorder) F43.10 and Bipolar I disorder with depression F31.9 [facility] [id number] [place] [address] 77198 -5652 Dec, Adverse drug reaction, initial encounter T88.7XXA [facility] [id number] [place] [address] 65855- 0852 Dec, [facility] [address] 89921- 6207 Nov, PTSD (post-traumatic stress disorder) F43.10 and Bipolar I disorder with depression F31.9 [facility] [id number] [place] [address] 42000- 4942 Nov, PTSD (post-traumatic stress disorder) F43.10 ; Mood disorder F39 and Obsessive-compulsive disorder, unspecified type F42.9 [facility] [address] [place] [address] 56267- 2597 Nov, PTSD (post-traumatic stress disorder) F43.10 and Bipolar I disorder with depression F31.9 [facility] [address] [place] [address] 03504- 0239 Nov, PTSD (post-traumatic stress disorder) F43.10 and Bipolar I disorder with depression F31.9 [facility] [id number] [place] [address] 34033 -1785 Nov, [facility] [id number] [place] [address] 18138- 0510 Nov, PTSD (post-traumatic stress disorder) F43.10 and Bipolar I disorder with depression F31.9 [facility] [id number] [place] [address] 33260- 7014 Nov, PTSD (post-traumatic stress disorder) F43.10 and Bipolar I disorder with depression F31.9 [facility] [id number] [place] [address] 32152699- 6199 Oct, [facility] [id number] [place] [address] 07875- 3480 Oct, PTSD (post-traumatic stress disorder) F43.10 ; Mood disorder F39 and Obsessive-compulsive disorder, unspecified type F42.9 [facility] [address], [place] [address]- 1252 Oct, PTSD (post-traumatic stress disorder) F43.10 and Bipolar I disorder with depression F31.9 [facility] [id number] [address]- 1426 Oct, PTSD (post-traumatic stress disorder) F43.10 and Bipolar I disorder with depression F31.9 [facility] [address], [place] [address]- 1979 Oct, PTSD (post-traumatic stress disorder) F43.10 ; Mood disorder F39 and Obsessive-compulsive disorder, unspecified type F42.9 [facility] [address], [place] [address]- 2176 Oct, [facility] [address], [place] [address]- 0098 Oct, PTSD (post-traumatic stress disorder) F43.10 and Bipolar I disorder with depression F31.9 [facility] [address], [place] [address]- 5918 Oct, PTSD (post-traumatic stress disorder) F43.10 ; Mood disorder F39 and Obsessive-compulsive disorder, unspecified type F42.9 [place] [address], [place] [address]- 5454 Sep, PTSD (post-traumatic stress disorder) F43.10 and Bipolar I disorder with depression F31.9 [facility] [address], [place] [address]- 1963 Sep, PTSD (post-traumatic stress disorder) F43.10 ; Mood disorder F39 and Obsessive-compulsive disorder, unspecified type F42.9 [facility] [address], [place] [address]- 6699 Sep, PTSD (post-traumatic stress disorder) F43.10 and Bipolar I disorder with depression F31.9 [facility] [address], [place] [address]- 9642 Sep, PTSD (post-traumatic stress disorder) F43.10 and Bipolar I disorder with depression F31.9 [facility] [address], [place] [address]- 7321 August, PTSD (post-traumatic stress disorder) F43.10 and Bipolar I disorder with depression F31.9 [facility] [id number] [place] [address] 43986 -0131 August, Pharyngitis due to other organism J02.8 [facility] [id number] [place] [address] 89471- 8758 August, PTSD (post-traumatic stress disorder) F43.10 ; Bipolar 1 disorder, mixed F31.60 and 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 [place] [id number] [place] [address] 92301- 4474 August, PTSD (post-traumatic stress disorder) F43.10 and Bipolar I disorder with depression F31.9 [place] [id number] [place] [address] 70365- 2111 Jul, PTSD (post-traumatic stress disorder) F43.10 and Bipolar I disorder with depression F31.9 [facility] [id number] [place] [address] 49547- 0176 Jul, PTSD (post-traumatic stress disorder) F43.10 and Bipolar I disorder with depression F31.9 [facility] [id number] [place] [address] 62295- 1389 Jul, PTSD (post-traumatic stress disorder) F43.10 and Bipolar I disorder with depression F31.9 [facility] [address] [place] [address] 83585- 2830 Jul, 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 [facility] [address] [place] [address] 04461- 7572 Jun, PTSD (post-traumatic stress disorder) F43.10 and Bipolar I disorder with depression F31.9 [facility] [address] [place] [address] 48607- 4829 Jun, Bipolar 1 disorder, mixed F31.60 ; PTSD (post-traumatic stress disorder) F43.10 and 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 [place] [id number] [place] [address] 52152- 4273 Jun, PTSD (post-traumatic stress disorder) F43.10 and Depression , unspecified depression type F32.9 [place] [id number] [place] [address] 72134- 6415 Jun, PTSD (post-traumatic stress disorder) F43.10 and Depression , unspecified depression type F32.9 [place] [id number] [place] [address] 57097- 5138 Jun, PTSD (post-traumatic stress disorder) F43.10 and Depression , unspecified depression type F32.9 [facility] [address] 62509 -2513 May, Fever, unspecified fever cause R50.9 and Gastroenteritis K52.9 [place] [address] 07845- 1806 Mar, Sprain of other ligament of right ankle, subsequent encounter S93.491D [place] [address] 69985- 3622 Mar, [facility] [place] [address] 68796 -0815 Feb, Scabies infestation B86 [place] [id number] [place] [address] 48714- 4916 Feb, Dental caries K02.9 [place] [address] 08057- 6097 Jan, [facility] [id number] [place] [address] 99600 -6923 Jan, Pharyngitis, unspecified etiology J02.9 [place] [id number] [place] [address] 83572- 9888 Jan, [place] [id number] [place] [address] 01265- 6115 Jan, Bipolar affective disorder, remission status unspecified F31.9 [facility] [id number] [place] [address] 24779- 0556 Jan, Encounter for dental examination and cleaning without abnormal findings Z01.20 [facility] [id number] [place] [address] 84836- 2932 17 Jan, 2016 Bipolar affective disorder, remission status unspecified F31.9 [place] [address] 41276- 7031 29 Dec, 2015 Bipolar affective disorder, remission status unspecified F31.9 and Depression, unspecified depression type F32.9 [place] [address] 53799- 2979 12 Dec, 2015 Unspecified mood [affective] disorder F39 and Generalized anxiety disorder F41.1 [place] [address] 48013- 1882 08 Dec, 2015 Depression, unspecified depression type F32.9 [place] [id number] [place] [address] 10655- 6136 Nov, Dental caries K02.9 [place] [address] 98562- 7672 Nov, Dental examination Z01.20 [place] [id number] [place] [address] 67364- 7087 Sep, Bipolar affective disorder, remission status unspecified F31.9 [place] [id number] [place] [address] 67375- 2531 August, Tension headache G44.209 [facility] [address] 77107 -9489 Jul, [facility] [address] 77928 -7378 Jul, Upper respiratory infection J06.9 and Gastroenteritis K52.9 [place] [address] 73976- 1395 Jun, Bronchitis J40 [facility] [id number] [place] [address] 03926 -7869 Feb, Thoracic back pain M54.6 and Left shoulder pain M25.512 [facility] [address] [address]- 0968 Feb, [facility] [id number] [place] [address] 55691- 1778 Jul, [facility] [address] [facility] [id number] [place] [address] 39320- 2230 Jul, [facility] [id number] [place] [address] 16816- 7269 Apr, [facility] [id number] [place] [address] 16243- 6514 Apr, [facility] [id number] [place] [address] 77753- 4609 Apr, [facility] [address] [place] [address] 80942- 4681 Apr, [facility] [id number] [place] [address] 30482- 6031 Mar, [facility] [address], [place] [address]- 1255 Mar, [facility] [address], [place] [address]- 5235 Mar, [facility] [address], [place] [address]- 4465 Mar, [facility] [id number] [place] [address] 877962- 8466 Feb, [facility] [address] 5266 Feb, [facility] [id number] [place] [address] 17846- 5752 Feb, [facility] [place] [facility] [address] [id number] [place] [address]- 1745 Feb, [facility] [place] [facility] [address] [id number] [place] [address]- 6611 15 Jan, 2014 [facility] [place] [facility] [address] [id number] [place] [address]- 5700 15 Jan, 2014 [facility] [place] [facility] [address] [id number] [place] [address]- 4805 14 Jan, 2014 [facility] [place] [facility] [address] [id number] [place] [address]- 1102 14 Jan, 2014 [facility] [place] [facility] [address] [id number] [place] [address]- 2821 Jan, [facility] [place] [facility] [address] [id number] [place] [address]- 5856 Jan, [facility] [place] [facility] [address] [id number] [place] [address]- 4529 Dec, [facility] [place] [facility] [address] [id number] [place] [address]- 9797 Dec, [facility] [place] [facility] [address] [id number] [place] [address]- 5732 Nov, [facility] [place] [facility] [address] [id number] [address]- 0259 Nov, [facility] [place] [facility] [address] [id number], [place] [address]- 6292 Nov, [facility] [place] [facility] [address] [id number] [place] [address]- 7699 Nov, [facility] [place] [facility] [address] [id number] [place] [address]- 8688 Nov, [facility] [place] [facility] [address] [id number] [place] [address]- 2244 Nov, [facility] [place] [facility] [address] [id number] [place] [address]- 6467 Nov, [facility] [place] [facility] [address] [id number] [place] [address]- 4932 Nov, [facility] [place] [facility] [address] [id number] [place] [address]- 0132 Nov, [facility] [place] [facility] [address] [id number] [place] [address]- 3509 Oct, [facility] [place] [facility] [address] [id number] [place] [address]- 7281 Oct, [facility] [place] [facility] [address] [id number] [place] [address]- 4979 Oct, [facility] [place] [facility] [address] [id number] [place] [address]- 3294 Oct, [facility] [place] [facility] [address] [id number] [place] [address]- 1342 Oct, [facility] [place] [facility] [address] [id number] [place] [address]- 3378 Oct, [facility] [place] [facility] [address] [id number] [place] [address]- 4271 Oct, [facility] [place] [facility] [address] [id number] [place] [address]- 8593 Oct, [facility] [place] [facility] [address] [id number] [place] [address]- 1974 Oct, [facility] [place] [facility] [address] [id number] [place] [address]- 4319 Oct, [facility] [place] [facility] [address] [id number] [place] [address]- 3892 Oct, [facility] [place] [facility] [address] [id number] [place] [address]- 5729 Oct, [facility] [place] [facility] [address] [id number] [place] [address]- 6328 Oct, [facility] [place] [facility] [address] [id number] [place] [address] Oct, 2013 [facility] [place] [facility] [address] [id number] [place] [address] Oct, 2013 [facility] [place] [facility] [address] [id number] [place] [address] Oct, 2013 [facility] [place] [facility] [address] [id number] [place] [address] Oct, 2013 [facility] [place] [facility] [address] [id number] [place] [address] Oct, [facility] [place] [facility] [address] [id number] [place] [address] Oct, [facility] [place] [facility] [address] [id number] [place] [address] Sep, [facility] [place] [facility] [address] [id number] [place] [address] Sep, [facility] [place] [facility] [address] [id number] [place] [address] Sep, [facility] [place] [facility] [address] [id number] [place] [address] Sep, [facility] [place] [facility] [address] [id number] [place] [address] Feb, [facility] [place] [facility] [address] [id number] [place] [address] Feb, [facility] [place] [facility] [address] [id number] [place] [address] Dec, [facility] [place] [facility] [address] [id number] [place] [address] Dec, [facility] [place] [facility] [address] [id number] [place] [address] Nov, [facility] [place] [facility] [address] [id number] [place] [address] Nov, [facility] [address] [id number] [place] [address] Nov, [facility] [place] [facility] [address] [id number] [place] [address] Nov, [facility] [place] [facility] [address] [id number] [place] [address] Nov, [facility] [place] [facility] [address] [id number] [place] [address] Nov, [facility] [place] [facility] [address] [id number] [place] [address] Oct, [facility] [place] [facility] [address] [id number] [place] [address] Apr, [facility] [place] [facility] [address] [id number] [place] [address] August, [facility] [place] [facility] [address] [id number] [place] [address] August, [facility] [place] [facility] [address] [id number] [place] [address] August, [facility] [place] [facility] [address] [id number] [place] [address] Jul, [facility] [place] [facility] [address] [id number] [place] [address] Jun, [facility] [place] [facility] [address] [id number] [place] [address] Jun, [facility] [place] [facility] [address] [id number] [place] [address] 14 Jun, 2011 [facility] [place] [facility] [address] [id number] [place] [address] Jun, [facility] [place] [facility] [address] [id number] [place] [address] Jun, [facility] [place] [facility] [address] [id number] [place] [address] Jun, [facility] [address] [id number] [place] [address] May, 2011 [facility] [place] [facility] [address] [id number] [place] [address] 16 May, 2011 [facility] [place] [facility] [address] [id number] [place] [address] 09 May, 2011 [facility] [place] [facility] [address] [id number] [place] [address] 07 May, 2011 [facility] [place] [facility] [address] [id number] [place] [address] 06 May, 2011 [facility] [address] [facility] [id number] [place] [address] May, [facility] [address] [facility] [id number] [place] [address] Apr, [facility] [address] [id number] [place] [address] Mar, [facility] [address] [facility] [id number] [place] [address] Mar, [facility] [place] [facility] [address] [facility] [id number] [place] [address] Feb, [facility] [place] [facility] [address] [id number] [place] [address] Jan, [facility] [place] [facility] [address] [id number] [place] [address] Mar, [facility] [place] [facility] [address] [id number] [place] [address] 15 Mar, 2009 [facility] [place] [facility] [address] [id number] [place] [address] 10 Mar, 2009 [facility] [place] [facility] [address] [id number], [place] [address] Mar, [facility] [address] [facility] [id number], [place] [address] Mar, [facility] [address] [facility] [id number], [place] [address] Feb, [facility] [address] [facility] [id number], [place] [address] Feb, [facility] [address] [facility] [id number], [place] [address] Nov, [facility] [address] [facility] [id number], [place] [address] May, IMMUNIZATIONS No Known Immunizations SOCIAL HISTORY Never Assessed REASON FOR VISIT med refill PLAN OF CARE VITAL SIGNS MEDICATIONS Medication Instructions Dosage Frequency Start Date End Date Duration Status Latuda 60 mg Orally Once a day at supper with food 1 tablet 30 days Active Trazodone HCl 100 mg Orally Once a day at bedtine for sleep 1/2 to 1 tablet Mar, 30 day(s) Active [place] Carbonate 300 MG Orally 3 times a day 1 capsule 8h Mar, 30 days Active RESULTS No Results PROCEDURES No Known procedures INSTRUCTIONS MEDICATIONS ADMINISTERED No Known Medications MEDICAL (GENERAL) HISTORY Type Description Date Medical History HELP syndrome Medical History bi-polar Medical History hypertension Medical History hx of seizure x1, isolated Surgical History gallbladder 10/2013 Surgical History 03/2014 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
--- OUTSIDE RECORDS SUMMARY | 2017-12-25 20:16 | XMS REPORT ---
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 Name Role Phone SIOMARA MOREL Unavailable PROBLEMS Type Condition ICD9-CM Code [id number] Code Onset Dates Condition Status SNOMED Code Problem Bipolar I disorder with depression F31.9 Active 74177452 Problem Amenorrhea N91.2 Active 74298751 Problem Social anxiety disorder F40.10 Active 93050478 Problem Obsessive-compulsive disorder, unspecified type F42.9 Active 472212320 Problem PTSD (post-traumatic stress disorder) F43.10 Active 65225865 Problem Mood disorder F39 Active 99011726 Problem 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 Active 03043883 ALLERGIES Substance Reaction Event Type Date Status Lamictal rash/blisters Drug Allergy Dec, Active Azithromycin hives Drug Allergy Dec, Active ORAGEL Unknown Non Drug Allergy Dec, Active ENCOUNTERS Encounter Location Date Diagnosis [facility] [id number] [place] [address] 79822- 9081 Nov, [facility] [id number] [place] [address] 65384- 2617 Nov, [facility] [id number] [place] [address] 93083- 7995 Nov, [facility] [id number] [place] [address] 66808- 9108 Oct, [facility] [id number] [place] [address] 18539- 2219 Oct, PTSD (post-traumatic stress disorder) F43.10 and Bipolar I disorder with depression F31.9 [facility] [id number] [place] [address] 62153- 9656 Oct, [facility] [address] [address] 2470 Oct, PTSD (post-traumatic stress disorder) F43.10 and Bipolar I disorder with depression F31.9 [facility] [address] [address] 5[address] Oct, [facility] [address] [address] 9204 Sep, Bipolar I disorder with depression F31.9 [facility] [id number] [place] [address] 59284- 2227 Sep, Bipolar I disorder with depression F31.9 ; PTSD (post- traumatic stress disorder) F43.10 ; 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 ; Social anxiety disorder F40.10 and BMI 50.0-59.9, adult Z68.43 [facility] [id number] [place] [address] 86156- 0845 Sep, PTSD (post-traumatic stress disorder) F43.10 and Bipolar I disorder with depression F31.9 [place] [facility] [id number] [place] [address] 38267- 8453 Sep, PTSD (post-traumatic stress disorder) F43.10 and Bipolar I disorder with depression F31.9 [facility] [facility] [id number] [address] 6408 August, PTSD (post-traumatic stress disorder) F43.10 and Bipolar I disorder with depression F31.9 [facility] [facility] [address] [address] 9820 August, Bipolar I disorder with depression F31.9 ; PTSD (post- traumatic stress disorder) F43.10 ; 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 ; Social anxiety disorder F40.10 and BMI 50.0-59.9, adult Z68.43 [facility] [facility] [address] [address] 2[address] August, [facility] [address] [address]- 6133 August, Bipolar I disorder with depression F31.9 ; PTSD (post- traumatic stress disorder) F43.10 ; 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 ; Social anxiety disorder F40.10 and BMI 50.0-59.9, adult Z68.43 [facility] [id number] [place] [address] 60959- 1110 August, [facility] [id number] [place] [address] 25744- 5598 August, [facility] [id number] [place] [address] 22210- 1271 August, PTSD (post-traumatic stress disorder) F43.10 and Bipolar I disorder with depression F31.9 [facility] [id number] [place] [address] 89932- 1086 August, [facility] [id number] [place] [address] 37813- 0502 Jul, Bipolar I disorder with depression F31.9 ; PTSD (post- traumatic stress disorder) F43.10 ; 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 ; Social anxiety disorder F40.10 and BMI 50.0-59.9, adult Z68.43 [facility] [address] [address]- 3553 Jul, PTSD (post-traumatic stress disorder) F43.10 and Bipolar I disorder with depression F31.9 [facility] [id number] [place] [address] 59905- 1248 Jul, Pelvic pain R10.2 ; Amenorrhea N91.2 and BMI 50.0-59.9, adult Z68.43 [facility] [id number] [place] [address] 40307- 1307 Jun, BMI 50.0-59.9, adult Z68.43 ; Bipolar I disorder with depression F31.9 ; PTSD (post-traumatic stress disorder) F43.10 and 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 [facility] [address] [address] 15 Jun, 2017 Other viral agents as the cause of diseases classified elsewhere B97.89 ; Other specified respiratory disorders J98.8 ; Bronchitis J40 and Cough R05 [facility] [id number] [place] [address] 21774- 4096 Jun, PTSD (post-traumatic stress disorder) F43.10 [facility] [id number] [place] [address] 41950- 4588 Jun, PTSD (post-traumatic stress disorder) F43.10 and Bipolar I disorder with depression F31.9 [facility] [id number] [place] [address] 99118- 9549 13 May, 2017 PTSD (post-traumatic stress disorder) F43.10 and Bipolar I disorder with depression F31.9 [facility] [id number] [place] [address] 81633- 5497 12 May, 2017 [facility] [id number] [place] [address] 20520- 5621 07 May, 2017 PTSD (post-traumatic stress disorder) F43.10 and Bipolar I disorder with depression F31.9 [facility] [id number] [address]- 0916 Apr, PTSD (post-traumatic stress disorder) F43.10 and Bipolar I disorder with depression F31.9 [facility] [id number] [place] [address] 14272- 1923 Apr, PTSD (post-traumatic stress disorder) F43.10 and Bipolar I disorder with depression F31.9 [facility] [id number] [place] [address] 53824- 3646 Mar, PTSD (post-traumatic stress disorder) F43.10 ; Obsessive- compulsive disorder, unspecified type F42.9 ; Bipolar I disorder with depression F31.9 and Other usp (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.899 [facility] [address] [address]- 6696 Mar, PTSD (post-traumatic stress disorder) F43.10 and Bipolar I disorder with depression F31.9 [facility] [address], [place] [address]- 8926 Feb, PTSD (post-traumatic stress disorder) F43.10 and Bipolar I disorder with depression F31.9 [facility] [address] [address]- 7296 Feb, PTSD (post-traumatic stress disorder) F43.10 and Bipolar I disorder with depression F31.9 [facility] [address], [place] [address] Jan, Strep pharyngitis J02.0 [facility] [id number] [place] [address] 46727- 3556 Jan, [facility] [address], [place] [address]- 8196 Jan, [facility] [id number] [place] [address] 96822- 3942 Jan, PTSD (post-traumatic stress disorder) F43.10 and Bipolar I disorder with depression F31.9 [facility] [address], [place] [address]- 0406 Jan, PTSD (post-traumatic stress disorder) F43.10 and Bipolar I disorder with depression F31.9 [facility] [address] [address] 2546 Jan, Other usp (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.899 [facility] [id number] [address]- 4766 Jan, PTSD (post-traumatic stress disorder) F43.10 ; Obsessive- compulsive disorder, unspecified type F42.9 ; Bipolar I disorder with depression F31.9 and 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 [facility] [address] [address]- 6780 27 Dec, 2016 Encounter for IUD removal Z30.432 and control counseling Z30.09 [facility] [id number] [place] [address] 56237- 1316 25 Dec, 2016 PTSD (post-traumatic stress disorder) F43.10 ; Obsessive- compulsive disorder, unspecified type F42.9 and Bipolar I disorder with depression F31.9 [facility] [id number] [place] [address] 23571- 7009 Dec, PTSD (post-traumatic stress disorder) F43.10 and Bipolar I disorder with depression F31.9 [facility] [id number] [place] [address] 16419- 2781 12 Dec, 2016 PTSD (post-traumatic stress disorder) F43.10 and Bipolar I disorder with depression F31.9 [facility] [id number] [place] [address] 13115- 2283 11 Dec, 2016 Mood disorder F39 [facility] [id number] [place] [address] 38146- 1321 08 Dec, 2016 PTSD (post-traumatic stress disorder) F43.10 ; Mood disorder F39 and Obsessive-compulsive disorder, unspecified type F42.9 [facility] [id number] [place] [address] 97739- 1285 07 Dec, 2016 PTSD (post-traumatic stress disorder) F43.10 and Bipolar I disorder with depression F31.9 [facility] [id number] [place] [address] 34898 -5813 05 Dec, 2016 Adverse drug reaction, initial encounter T88.7XXA [facility] [id number] [place] [address] 99443- 4697 Dec, [facility] [id number] [place] [address] 90649- 3621 Nov, PTSD (post-traumatic stress disorder) F43.10 and Bipolar I disorder with depression F31.9 [facility] [address], [place] [address]- 7142 Nov, PTSD (post-traumatic stress disorder) F43.10 ; Mood disorder F39 and Obsessive-compulsive disorder, unspecified type F42.9 [facility] [address], [place] [address]- 2738 Nov, PTSD (post-traumatic stress disorder) F43.10 and Bipolar I disorder with depression F31.9 [facility] [address], [place] [address]- 6932 Nov, PTSD (post-traumatic stress disorder) F43.10 and Bipolar I disorder with depression F31.9 [facility] [address], [place] [address] Nov, [facility] [id number] [place] [address] 43780- 6517 Nov, PTSD (post-traumatic stress disorder) F43.10 and Bipolar I disorder with depression F31.9 [facility] [id number] [place] [address] 48391- 1263 Nov, PTSD (post-traumatic stress disorder) F43.10 and Bipolar I disorder with depression F31.9 [facility] [address] [address]- 4628 Oct, [facility] [id number] [place] [address] 55616- 6455 Oct, PTSD (post-traumatic stress disorder) F43.10 ; Mood disorder F39 and Obsessive-compulsive disorder, unspecified type F42.9 [facility] [id number] [place] [address] 23526- 9438 Oct, PTSD (post-traumatic stress disorder) F43.10 and Bipolar I disorder with depression F31.9 [facility] [id number] [place] [address] 00986- 9405 Oct, PTSD (post-traumatic stress disorder) F43.10 and Bipolar I disorder with depression F31.9 [facility] [id number] [place] [address] 47490- 5842 Oct, PTSD (post-traumatic stress disorder) F43.10 ; Mood disorder F39 and Obsessive-compulsive disorder, unspecified type F42.9 [facility] [id number] [place] [address] 08651- 4269 Oct, [facility] [id number] [place] [address] 88154- 2956 Oct, PTSD (post-traumatic stress disorder) F43.10 and Bipolar I disorder with depression F31.9 [facility] [address], [place] [address]- 0737 Oct, PTSD (post-traumatic stress disorder) F43.10 ; Mood disorder F39 and Obsessive-compulsive disorder, unspecified type F42.9 [facility] [address], [place] [address]- 7049 Sep, PTSD (post-traumatic stress disorder) F43.10 and Bipolar I disorder with depression F31.9 [facility] [address], [place] [address]- 0519 Sep, PTSD (post-traumatic stress disorder) F43.10 ; Mood disorder F39 and Obsessive-compulsive disorder, unspecified type F42.9 [facility] [address], [place] [address]- 1123 Sep, PTSD (post-traumatic stress disorder) F43.10 and Bipolar I disorder with depression F31.9 [facility] [id number] [place] [address] 25416- 8408 Sep, PTSD (post-traumatic stress disorder) F43.10 and Bipolar I disorder with depression F31.9 [facility] [address], [place] [address]- 3961 August, PTSD (post-traumatic stress disorder) F43.10 and Bipolar I disorder with depression F31.9 [facility] [id number] [place] [address] 84705 -0376 August, Pharyngitis due to other organism J02.8 [facility] [id number] [place] [address] 28084- 4006 August, PTSD (post-traumatic stress disorder) F43.10 ; Bipolar 1 disorder, mixed F31.60 and Other usp (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.899 [facility] [id number] [place] [address] 22176- 8706 August, PTSD (post-traumatic stress disorder) F43.10 and Bipolar I disorder with depression F31.9 [facility] [id number] [place] [address] 64697- 6091 Jul, PTSD (post-traumatic stress disorder) F43.10 and Bipolar I disorder with depression F31.9 [facility] [id number] [place] [address] 13025- 0306 Jul, PTSD (post-traumatic stress disorder) F43.10 and Bipolar I disorder with depression F31.9 [facility] [id number] [place] [address] 87341- 2596 Jul, PTSD (post-traumatic stress disorder) F43.10 and Bipolar I disorder with depression F31.9 [facility] [id number] [place] [address] 09657- 9376 Jul, Other usp (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.899 [facility] [id number] [place] [address] 84435- 7376 Jun, PTSD (post-traumatic stress disorder) F43.10 and Bipolar I disorder with depression F31.9 [facility] [id number] [place] [address] 70510- 0644 Jun, Bipolar 1 disorder, mixed F31.60 ; PTSD (post-traumatic stress disorder) F43.10 and 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 [address] 91464 -9379 May, Fever, unspecified fever cause R50.9 and Gastroenteritis K52.9 [place] [address] 92623- 3611 Mar, Sprain of other ligament of right ankle, subsequent encounter S93.491D [facility] [address] 69412- 1565 Mar, [facility] [place] [address] 28459 -3368 Feb, Scabies infestation B86 [facility] [address] 23860- 2727 Feb, Dental caries K02.9 [place] [address] 93189- 2939 Jan, [facility] [address] 92350 -2283 Jan, Pharyngitis, unspecified etiology J02.9 [facility] [address] 80682- 6915 Jan, [facility] [id number] [place] [address] 86255- 2418 Jan, Bipolar affective disorder, remission status unspecified F31.9 [facility] [id number] [place] [address] 74301- 0026 Jan, Encounter for dental examination and cleaning without abnormal findings Z01.20 [facility] [id number] [place] [address] 92053- 3222 Jan, Bipolar affective disorder, remission status unspecified F31.9 [facility] [id number] [place] [address] 79733- 1954 29 Dec, 2015 Bipolar affective disorder, remission status unspecified F31.9 and Depression, unspecified depression type F32.9 [facility] [id number] [place] [address] 25204- 3260 Dec, Unspecified mood [affective] disorder F39 and Generalized anxiety disorder F41.1 [facility] [id number] [place] [address] 29669- 3507 08 Dec, 2015 Depression, unspecified depression type F32.9 [facility] [id number] [place] [address] 20409- 2426 Nov, Dental caries K02.9 [facility] [id number] [place] [address] 80617- 5656 Nov, Dental examination Z01.20 [facility] [id number] [place] [address] 36823- 9090 Sep, Bipolar affective disorder, remission status unspecified F31.9 [facility] [id number] [place] [address] 64585- 7087 August, Tension headache G44.209 [facility] [id number] [place] [address] 20567 -2414 Jul, [facility] [id number] [place] [address] 53691 -4555 Jul, Upper respiratory infection J06.9 and Gastroenteritis K52.9 [facility] [address] [address]- 2542 Jun, [facility] J40 [facility] [id number] [place] [address] 05360 -4935 Feb, Thoracic back pain M54.6 and Left shoulder pain M25.512 [facility] [id number] [place] [address] 79392- 9806 Feb, [facility] [id number] [place] [address] 13931- 7998 Jul, [facility] [id number] [place] [address] 21308- 0900 Jul, [facility] [id number] [place] [address] 00787- 5239 Apr, [facility] [id number] [place] [address] 52592- 9521 Apr, [facility] [id number] [place] [address] 74326- 6204 Apr, [facility] [id number] [place] [address] 98607- 6542 Apr, [facility] [id number] [place] [address] 34815- 3627 Mar, [facility] [id number] [place] [address] 08644- 6097 Mar, [facility] [id number] [place] [address] 95023- 4044 Mar, [facility] [id number] [place] [address] 88973- 2584 Mar, [facility] [address] [address]- 2594 Feb, [facility] [id number] [place] [address] 36117- 6404 Feb, [facility] [place] [facility] [address] [id number] [place] [address]- 4949 Feb, [facility] [place] [facility] [address] [id number] [place] [address]- 7469 Feb, [facility] [place] [facility] [address] [id number] [place] [address]- 9126 15 Jan, 2014 [facility] [place] [facility] [address] [id number] [place] [address]- 0265 15 Jan, 2014 [facility] [place] [facility] [address] [id number] [place] [address]- 4981 14 Jan, 2014 [facility] [place] [facility] [address] [id number] [place] [address]- 0678 14 Jan, 2014 [facility] [place] [facility] [address] [id number] [place] [address]- 4314 Jan, [facility] [place] [facility] [address] [id number] [place] [address]- 7280 Jan, [facility] [place] [facility] [address] [id number] [place] [address]- 2033 Dec, [facility] [place] [facility] [address] [id number] [place] [address]- 9416 Dec, [facility] [place] [facility] [address] [id number] [place] [address]- 4247 Nov, [facility] [place] [facility] [address] [id number] [place] [address]- 5643 Nov, [facility] [place] [facility] [address] [id number] [place] [address]- 0738 Nov, [facility] [place] [facility] [address] [id number] [place] [address]- 7177 Nov, [facility] [place] [facility] [address] [id number] [place] [address]- 0432 Nov, [facility] [place] [facility] [address] [id number] [place] [address]- 5935 Nov, [facility] [place] [facility] [address] [id number] [place] [address]- 6557 Nov, [facility] [place] [facility] [address] [id number] [place] [address]- 8686 Nov, [facility] [place] [facility] [address] [id number] [place] [address]- 0483 Nov, [facility] [place] [facility] [address] [id number] [place] [address]- 5870 Oct, [facility] [place] [facility] [address] [id number] [place] [address]- 7930 Oct, [facility] [place] [facility] [address] [id number] [place] [address]- 3884 Oct, [facility] [place] [facility] [address] [id number] [place] [address]- 7075 Oct, [facility] [place] [facility] [address] [id number] [place] [address]- 4342 Oct, [facility] [place] [facility] [address] [id number] [place] [address]- 9350 Oct, [facility] [place] [facility] [address] [id number] [place] [address]- 4664 Oct, [facility] [place] [facility] [address] [id number] [place] [address]- 5833 Oct, [facility] [place] [facility] [address] [id number] [place] [address]- 2170 15 Oct, 2013 [facility] [place] [facility] [address] [id number] [place] [address]- 8455 Oct, [facility] [place] [facility] [address] [id number] [place] [address]- 2816 Oct, [facility] [place] [facility] [address] [id number] [place] 9618 Oct, [facility] [place] [facility] [address] [id number] [place] [address] Oct, 2013 [facility] [place] [facility] [address] [id number] [place] [address] Oct, 2013 [facility] [place] [facility] [address] [id number] [place] [address] Oct, 2013 [facility] [place] [facility] [address] [id number] [place] [address] Oct, 2013 [facility] [place] [facility] [address] [id number] [place] [address] Oct, 2013 [facility] [place] [facility] [address] [id number] [place] [address] Oct, [facility] [place] [facility] [address] [id number] [place] [address] Oct, [facility] [place] [facility] [address] [id number] [place] [address] Sep, [facility] [place] [facility] [address] [id number] [place] [address] Sep, [facility] [place] [facility] [address] [id number] [place] [address] Sep, [facility] [place] [facility] [address] [id number] [place] [address] Sep, [facility] [place] [facility] [address] [id number], [place] [address] Feb, [facility] [place] [facility] [address] [id number] [place] [address] Feb, [facility] [place] [facility] [address] [id number] [place] [address] Dec, [facility] [place] [facility] [address] [id number] [place] [address] Dec, [facility] [facility] [address] [id number] [place] [address] Nov, [facility] [address] [id number] [place] [address] Nov, [facility] [place] [facility] [address] [id number] [place] [address] Nov, [facility] [place] [facility] [address] [id number] [place] [address] Nov, [facility] [place] [facility] [address] [id number] [place] [address] Nov, [facility] [place] [facility] [address] [id number] [place] [address] Nov, [facility] [place] [facility] [address] [id number] [place] [address] Oct, [facility] [address] [id number] [place] [address] Apr, [facility] [address] [id number] [place] [address] August, [facility] [address] [id number] [place] [address] August, [facility] [address] [id number] [place] [address] August, [facility] [address] [id number] [place] [address] Jul, [facility] [place] [facility] [address] [id number] [place] [address] 28 Jun, 2011 [facility] [place] [facility] [address] [id number] [place] [address] 27 Jun, 2011 [facility] [place] [facility] [address] [id number] [place] [address] 14 Jun, 2011 [facility] [facility] [address] [id number] [place] [address] 14 Jun, 2011 [facility] [place] [facility] [address] [id number] [place] [address] Jun, [facility] [place] [facility] [address] [id number] [place] [address] Jun, [facility] [place] [facility] [address] [id number] [place] [address] May, [facility] [place] [facility] [address] [id number] [place] [address] 16 May, 2011 [facility] [address] [id number] [place] [address] May, [facility] [address] [id number] [place] [address] May, [facility] [facility] [address] [facility] [id number] [place] [address] May, [facility] [place] [facility] [address] [id number] [place] [address] May, [facility] [place] [facility] [address] [id number] [place] [address] Apr, [facility] [address] [facility] [id number], [place] [address] Mar, [facility] [address] [facility] [id number], [place] [address] Mar, [facility] [address] [id number], [place] [address] Feb, [facility] [address] [id number] [place] [address] Jan, [facility] [address] [id number], [place] [address] Mar, [facility] [address] [facility] [id number], [place] [address] 15 Mar, 2009 [facility] [address] [id number] [address] Mar, [facility] [address] [facility] [id number], [place] [address] Mar, [facility] [address] [id number], [place] [address] Mar, [facility] [address] [facility] [id number], [place] [address] Feb, [facility] [id number], [place] [address] Feb, [facility] [address] [facility] [id number], [place] [address] Nov, [facility] [address] [id number], [place] [address] May, IMMUNIZATIONS No Known Immunizations SOCIAL HISTORY Never Assessed REASON FOR VISIT IUD removal, Has has Mirena x3 years. Getting soon and is wanting to become . -PORTIA Banerjee PLAN OF CARE Activity Details Follow Up 1 Year with Tevin for annual well woman Reason: VITAL SIGNS Height 64 in 2017-01-08 Weight 296 lbs 2017-01-08 Temperature 98.1 degrees Fahrenheit 2017-01-08 Heart Rate 80 bpm 2017-01-08 Respiratory Rate 20 2017-01-08 BMI 50.80 kg/m2 2017-01-08 Blood pressure systolic 120 mmHg 2017-01-08 Blood pressure diastolic 84 mmHg 2017-01-08 MEDICATIONS Medication Instructions Dosage Frequency Start Date End Date Duration Status Celexa 20 mg Orally Once a day 1 tablet 24h Not-Taking Sprintec 28 0.25-35 MG-MCG Orally Once a day 1 tablet 24h Dec, 30 day(s) Active [place] Carbonate 300 MG Orally 2 times a day 1 capsule 12h Dec, Active HydrOXYzine HCl 50 mg Orally at bedtime a needed for sleep 1 tablet Dec, 30 days Active Latuda 60 mg Orally Once a day at supper with food 1 tablet Active RESULTS No Results PROCEDURES Procedure Date Ordered Result Body Site REMOVE INTRAUTERINE DEVICE Jan 08, 2017 INSTRUCTIONS MEDICATIONS ADMINISTERED No Known Medications MEDICAL (GENERAL) HISTORY Type Description Date Medical History HELP syndrome Medical History bi-polar Medical History hypertension Medical History hx of seizure x1, isolated Surgical History gallbladder 10/2013 Surgical History 03/2014 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
--- OUTSIDE RECORDS SUMMARY | 2017-12-25 20:17 | XMS REPORT ---
Author Author [facility] Address [address] [place] [address] Care Team Providers Care Registered Nurse First Assistant Name Role Phone GRICELDASOUTH Unavailable PROBLEMS Type Condition ICD9-CM Code GYR60-BC Code Onset Dates Condition Status SNOMED Code Problem Bipolar I disorder with depression F31.9 Active 27761578 Problem Amenorrhea N91.2 Active 45673093 Problem Social anxiety disorder F40.10 Active 21528011 Problem Obsessive-compulsive disorder, unspecified type F42.9 Active 190974365 Problem PTSD (post-traumatic stress disorder) F43.10 Active 22241783 Problem Mood disorder F39 Active 70858012 Problem 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 Active [id number] ALLERGIES No Information ENCOUNTERS Encounter Location Date Diagnosis [facility] [id number] [place] [address] 21526- 4820 Sep, [facility] [address] 0[address]- 2470 Sep, [facility] [id number] [place] [address] 87741- 9517 Sep, [facility] [id number] [place] [address] 21203- 8410 August, [facility] [id number] [place] [address] 07714- 8528 August, [facility] [address] 50419- 5864 August, PTSD (post-traumatic stress disorder) F43.10 and Bipolar I disorder with depression F31.9 [facility] [id number] [place] [address] 80729- 0472 August, [facility] [address] [address] 7[address] 24 Jul, 2017 Bipolar I disorder with depression F31.9 ; PTSD (post- traumatic stress disorder) F43.10 ; 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 ; Social anxiety disorder F40.10 and BMI 50.0-59.9, adult Z68.43 [facility] [id number] [place] [address] 82771- 9999 18 Jul, 2017 PTSD (post-traumatic stress disorder) F43.10 and Bipolar I disorder with depression F31.9 [facility] [id number] [place] [address] 53101- 0435 09 Jul, 2017 Pelvic pain R10.2 ; Amenorrhea N91.2 and BMI 50.0-59.9, adult Z68.43 [facility] [id number] [place] [address] 19163- 7482 26 Jun, 2017 BMI 50.0-59.9, adult Z68.43 ; Bipolar I disorder with depression F31.9 ; PTSD (post-traumatic stress disorder) F43.10 and 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 [facility] [id number] [place] [address] 22516 -6213 15 Jun, 2017 Other viral agents as the cause of diseases classified elsewhere B97.89 ; Other specified respiratory disorders J98.8 ; Bronchitis J40 and Cough R05 [id number] [place] [address] 76113- 0431 Jun, PTSD (post-traumatic stress disorder) F43.10 [facility] [id number] [place] [address] 75193- 3769 Jun, PTSD (post-traumatic stress disorder) F43.10 and Bipolar I disorder with depression F31.9 [facility] [id number] [place] [address] 81436- 2379 13 May, 2017 PTSD (post-traumatic stress disorder) F43.10 and Bipolar I disorder with depression F31.9 [facility] [address], [place] [address] 12 May, 2017 [facility] [id number] [place] [address] 43316- 6513 May, PTSD (post-traumatic stress disorder) F43.10 and Bipolar I disorder with depression F31.9 [facility] [id number] [place] [address] 24484- 2310 Apr, PTSD (post-traumatic stress disorder) F43.10 and Bipolar I disorder with depression F31.9 [facility] [id number] [place] [address] 55450- 0527 Apr, PTSD (post-traumatic stress disorder) F43.10 and Bipolar I disorder with depression F31.9 [facility] [id number] [place] [address] 24207- 9034 Mar, PTSD (post-traumatic stress disorder) F43.10 ; Obsessive- compulsive disorder, unspecified type F42.9 ; Bipolar I disorder with depression F31.9 and Other prison (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.899 [facility] [id number] [place] [address] 96060- 2871 Mar, PTSD (post-traumatic stress disorder) F43.10 and Bipolar I disorder with depression F31.9 [facility] [id number] [place] [address] 07307- 3226 Feb, PTSD (post-traumatic stress disorder) F43.10 and Bipolar I disorder with depression F31.9 [facility] [id number] [place] [address] 07924- 7890 Feb, PTSD (post-traumatic stress disorder) F43.10 and Bipolar I disorder with depression F31.9 [facility] [id number] [place] [address] 01966 -3827 Jan, Strep pharyngitis J02.0 [facility] [id number] [place] [address] 54480- 2577 Jan, [facility] [address], [place] [address]- 5235 Jan, [facility] [id number] [place] [address] 60512- 4553 Jan, PTSD (post-traumatic stress disorder) F43.10 and Bipolar I disorder with depression F31.9 [facility] [id number] [place] [address] 69452- 0307 Jan, PTSD (post-traumatic stress disorder) F43.10 and Bipolar I disorder with depression F31.9 [facility] [id number] [place] [address] 38802- 7038 Jan, Other meterman (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.899 [place] [id number] [place] [address] 28915- 2789 02 Jan, 2017 PTSD (post-traumatic stress disorder) F43.10 ; Obsessive- compulsive disorder, unspecified type F42.9 ; Bipolar I disorder with depression F31.9 and Other meterman (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.899 [place] [id number] [place] [address] 02345- 4755 27 Dec, 2016 Encounter for IUD removal Z30.432 and control counseling Z30.09 [facility] [address] [address]- 1775 Dec, PTSD (post-traumatic stress disorder) F43.10 ; Obsessive- compulsive disorder, unspecified type F42.9 and Bipolar I disorder with depression F31.9 [facility] [address], [place] [address]- 1412 Dec, PTSD (post-traumatic stress disorder) F43.10 and Bipolar I disorder with depression F31.9 [facility] [address], [place] [address]- 6320 Dec, PTSD (post-traumatic stress disorder) F43.10 and Bipolar I disorder with depression F31.9 [place] [address], [place] [address]- 6225 11 Dec, 2016 Mood disorder F39 [facility] [id number] [place] [address] 38544- 3857 08 Dec, 2016 PTSD (post-traumatic stress disorder) F43.10 ; Mood disorder F39 and Obsessive-compulsive disorder, unspecified type F42.9 [facility] [id number] [place] [address] 70268- 8454 Dec, PTSD (post-traumatic stress disorder) F43.10 and Bipolar I disorder with depression F31.9 [facility] [id number] [place] [address] 48232 -9912 Dec, Adverse drug reaction, initial encounter T88.7XXA [facility] [id number] [place] [address] 03225- 3689 Dec, [facility] [id number] [place] [address] 93356- 1577 Nov, PTSD (post-traumatic stress disorder) F43.10 and Bipolar I disorder with depression F31.9 [facility] [id number] [place] [address] 17299- 8375 Nov, PTSD (post-traumatic stress disorder) F43.10 ; Mood disorder F39 and Obsessive-compulsive disorder, unspecified type F42.9 [facility] [id number] [place] [address] 63215- 1183 Nov, PTSD (post-traumatic stress disorder) F43.10 and Bipolar I disorder with depression F31.9 [facility] [id number] [place] [address] 26197- 7367 Nov, PTSD (post-traumatic stress disorder) F43.10 and Bipolar I disorder with depression F31.9 [facility] [id number] [place] [address] 75905 -6142 Nov, [facility] [id number] [place] [address] 65102- 9023 Nov, PTSD (post-traumatic stress disorder) F43.10 and Bipolar I disorder with depression F31.9 [facility] [address], [place] [address]- 0276 Nov, PTSD (post-traumatic stress disorder) F43.10 and Bipolar I disorder with depression F31.9 [facility] [address], [place] [address]- 3610 Oct, [facility] [address], [place] [address]- 3021 Oct, PTSD (post-traumatic stress disorder) F43.10 ; Mood disorder F39 and Obsessive-compulsive disorder, unspecified type F42.9 [facility] [address], [place] [address]- 2695 Oct, PTSD (post-traumatic stress disorder) F43.10 and Bipolar I disorder with depression F31.9 [facility] [address], [place] [address]- 1273 Oct, PTSD (post-traumatic stress disorder) F43.10 and Bipolar I disorder with depression F31.9 [facility] [address], [place] [address]- 7560 Oct, PTSD (post-traumatic stress disorder) F43.10 ; Mood disorder F39 and Obsessive-compulsive disorder, unspecified type F42.9 [facility] [address], [place] [address]- 0526 Oct, [facility] [id number] [address]- 5128 Oct, PTSD (post-traumatic stress disorder) F43.10 and Bipolar I disorder with depression F31.9 [facility] [id number] [address]- 4406 Oct, PTSD (post-traumatic stress disorder) F43.10 ; Mood disorder F39 and Obsessive-compulsive disorder, unspecified type F42.9 [facility] [address], [place] [address]- 0888 Sep, PTSD (post-traumatic stress disorder) F43.10 and Bipolar I disorder with depression F31.9 [facility] [id number] [place] [address] 92049- 9694 Sep, PTSD (post-traumatic stress disorder) F43.10 ; Mood disorder F39 and Obsessive-compulsive disorder, unspecified type F42.9 [facility] [id number] [place] [address] 01839- 9278 Sep, PTSD (post-traumatic stress disorder) F43.10 and Bipolar I disorder with depression F31.9 [facility] [id number] [place] [address] 99582- 2023 Sep, PTSD (post-traumatic stress disorder) F43.10 and Bipolar I disorder with depression F31.9 [facility] [id number] [place] [address] 43833- 7732 August, PTSD (post-traumatic stress disorder) F43.10 and Bipolar I disorder with depression F31.9 [facility] [id number] [place] [address] 56525 -2223 August, Pharyngitis due to other organism J02.8 [facility] [id number] [place] [address] 26885- 7475 August, PTSD (post-traumatic stress disorder) F43.10 ; Bipolar 1 disorder, mixed F31.60 and Other prison (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.899 [place] [id number] [place] [address] 04692- 9734 August, PTSD (post-traumatic stress disorder) F43.10 and Bipolar I disorder with depression F31.9 [facility] [id number] [place] [address] 12705- 2743 Jul, PTSD (post-traumatic stress disorder) F43.10 and Bipolar I disorder with depression F31.9 [facility] [address], [place] [address]- 5382 Jul, PTSD (post-traumatic stress disorder) F43.10 and Bipolar I disorder with depression F31.9 [facility] [address], [place] [address]- 4402 Jul, PTSD (post-traumatic stress disorder) F43.10 and Bipolar I disorder with depression F31.9 [facility] [id number] [place] [address] 03623- 3366 Jul, Other meterman (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.899 [facility] [id number] [place] [address] 43921- 4824 Jun, PTSD (post-traumatic stress disorder) F43.10 and Bipolar I disorder with depression F31.9 [facility] [id number] [place] [address] 00951- 1344 Jun, Bipolar 1 disorder, mixed F31.60 ; PTSD (post-traumatic stress disorder) F43.10 and Other prison (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.899 [place] [id number] [place] [address] 99757- 4605 Jun, PTSD (post-traumatic stress disorder) F43.10 and Depression , unspecified depression type F32.9 [facility] [id number] [place] [address] 15099- 3726 Jun, PTSD (post-traumatic stress disorder) F43.10 and Depression , unspecified depression type F32.9 [facility] [id number] [place] [address] 74228- 2381 Jun, PTSD (post-traumatic stress disorder) F43.10 and Depression , unspecified depression type F32.9 [facility] [address], [place] [address] -[address]37 May, Fever, unspecified fever cause R50.9 and Gastroenteritis K52.9 [facility] [id number], [place] [address]- 2562 13 Mar, 2016 Sprain of other ligament of right ankle, subsequent encounter S93.491D [place] [id number] [place] [address] 42568- 3543 09 Mar, 2016 [facility] [id number] [place] [address] 62383 -9032 Feb, 2016 Scabies infestation B86 [place] [id number] [place] [address] 59760- 6896 Feb, Dental caries K02.9 [facility] [id number] [place] [address] 75516- 6840 Jan, [facility] [id number] [place] [address] 41594 -7971 Jan, Pharyngitis, unspecified etiology J02.9 [facility] [id number] [place] [address] 90892- 5762 Jan, [facility] [id number] [place] [address] 58421- 3484 Jan, Bipolar affective disorder, remission status unspecified F31.9 [facility] [id number] [place] [address] 93554- 4694 Jan, Encounter for dental examination and cleaning without abnormal findings Z01.20 [facility] [id number] [place] [address] 46577- 4425 Jan, Bipolar affective disorder, remission status unspecified F31.9 [facility] [id number] [place] [address] 47986- 5980 29 Dec, 2015 Bipolar affective disorder, remission status unspecified F31.9 and Depression, unspecified depression type F32.9 [place] [id number] [place] [address] 95685- 4225 12 Dec, 2015 Unspecified mood [affective] disorder F39 and Generalized anxiety disorder F41.1 [facility] [id number] [place] [address] 44288- 6383 08 Dec, 2015 Depression, unspecified depression type F32.9 [facility] [id number] [place] [address] 28506- 4523 Nov, Dental caries K02.9 [facility] [address] 30168- 8794 Nov, Dental examination Z01.20 [facility] [address] 47383- 7934 Sep, Bipolar affective disorder, remission status unspecified F31.9 [place] [address] 53661- 1779 August, Tension headache G44.209 [facility] [address] 92854 -4197 Jul, [facility] [address] 38225 -2478 Jul, Upper respiratory infection J06.9 and Gastroenteritis K52.9 [facility] [address] 65151- 4249 Jun, Bronchitis J40 [facility] [address] 08176 -4585 Feb, Thoracic back pain M54.6 and Left shoulder pain M25.512 [facility] [id number] [place] [address] 81657- 8423 Feb, [facility] [address] 39244- 6490 Jul, [place] [address] 90137- 2346 Jul, [facility] [address] 86964- 8818 Apr, [facility] [address] [place] [address]- 7235 Apr, [facility] [place] [facility] [address] [id number] [place] [address]- 6849 Apr, [facility] [place] [facility] [address] [id number] [place] [address]- 9735 Apr, [facility] [place] [facility] [address] [id number] [place] [address]- 7282 Mar, [facility] [place] [facility] [address] [id number] [place] [address]- 6034 Mar, [facility] [place] [facility] [address] [id number] [place] [address]- 3144 Mar, [facility] [place] [facility] [address] [id number] [place] [address]- 3581 Mar, [facility] [place] [facility] [address] [id number] [place] [address]- 1066 Feb, [facility] [place] [facility] [address] [id number] [place] [address]- 4643 Feb, [facility] [place] [facility] [address] [id number] [place] [address]- 4754 Feb, [facility] [place] [facility] [address] [facility] [id number] [place] [address]- 6131 Feb, [facility] [place] [facility] [address] [id number] [place] [address]- 1578 15 Jan, 2014 [facility] [place] [facility] [address] [id number] [address]- 3886 15 Jan, 2014 [facility] [place] [facility] [address] [id number] [place] [address]- 8335 14 Jan, 2014 [facility] [place] [facility] [address] [id number] [place] [address]- 3457 14 Jan, 2014 [facility] [place] [facility] [address] [id number] [place] [address]- 2162 13 Jan, 2014 [facility] [place] [facility] [address] [id number] [place] [address]- 8999 Jan, [facility] [place] [facility] [address] [id number] [place] [address]- 3124 Dec, [facility] [place] [facility] [address] [id number] [place] [address]- 4383 Dec, [facility] [place] [facility] [address] [id number] [place] [address]- 9241 Nov, [facility] [place] [facility] [address] [id number] [place] [address]- 5826 Nov, [facility] [place] [facility] [address] [id number] [place] [address]- 8366 Nov, [facility] [place] [facility] [address] [id number] [place] [address]- 7087 Nov, [facility] [place] [facility] [address] [id number] [place] [address]- 7259 Nov, [facility] [place] [facility] [address] [id number] [place] [address]- 5855 Nov, [facility] [place] [facility] [address] [id number] [place] [address]- 1445 Nov, [facility] [place] [facility] [address] [id number] [place] [address]- 6666 Nov, [facility] [place] [facility] [address] [id number] [place] [address]- 9019 Nov, [facility] [place] [facility] [address] [id number] [place] [address]- 0449 Oct, [facility] [place] [facility] [address] [id number] [place] [address]- 7394 Oct, [facility] [place] [facility] [address] [id number] [place] [address]- 2721 Oct, [facility] [place] [facility] [address] [id number] [place] [address]- 0397 Oct, [facility] [place] [facility] [address] [id number] [place] [address]- 1560 Oct, 2013 [facility] [place] [facility] [address] [id number] [place] [address]- 2247 Oct, [facility] [place] [facility] [address] [id number] [place] [address]- 5957 Oct, 2013 [facility] [place] [facility] [address] [id number] [place] [address]- 2461 Oct, 2013 [facility] [place] [facility] [address] [id number] [place] [address]- 6520 Oct, [facility] [place] [facility] [address] [id number] [place] [address]- 0278 Oct, 2013 [facility] [place] [facility] [address] [id number] [place] [address]- 3609 Oct, 2013 [facility] [place] [facility] [address] [id number] [place] [address]- 6684 Oct, [facility] [place] [facility] [address] [id number] [place] [address]- 0442 Oct, 2013 [facility] [place] [facility] [address] [id number] [place] [address]- 7229 Oct, [facility] [place] [facility] [address] [id number] [place] [address]- 7198 Oct, [facility] [place] [facility] [address] [id number] [place] [address] Oct, 2013 [facility] [place] [facility] [address] [id number] [place] [address] Oct, [facility] [place] [facility] [address] [id number] [place] [address] Oct, [facility] [place] [facility] [address] [id number] [place] [address] Oct, 2013 [facility] [place] [facility] [address] [id number] [place] [address] Sep, [facility] [address] [id number] [place] [address] Sep, [facility] [place] [facility] [address] [id number] [place] [address] Sep, [facility] [address] [id number] [place] [address] Sep, [facility] [place] [facility] [address] [id number] [place] [address] Feb, [facility] [place] [facility] [address] [id number] [place] [address] Feb, [facility] [place] [facility] [address] [id number] [place] [address] Dec, [facility] [address] [id number] [place] [address] Dec, [facility] [address] [id number] [place] [address] Nov, [facility] [place] [facility] [address] [id number] [place] [address] Nov, [facility] [place] [facility] [address] [id number] [place] [address] Nov, [facility] [place] [facility] [address] [id number] [place] [address] Nov, [facility] [place] [facility] [address] [id number] [place] [address] Nov, [facility] [place] [facility] [address] [id number] [place] [address] Nov, [facility] [place] [facility] [address] [id number] [place] [address] Oct, [facility] [place] [facility] [address] [id number] [place] [address] Apr, [facility] [place] [facility] [address] [id number] [place] [address] August, [facility] [place] [facility] [address] [id number] [place] [address] August, [facility] [place] [facility] [address] [id number] [place] [address] August, [facility] [place] [facility] [address] [id number] [place] [address] Jul, [facility] [place] [facility] [address] [id number] [place] [address] Jun, [facility] [place] [facility] [address] [id number] [place] [address] Jun, [facility] [place] [facility] [address] [id number] [place] [address] Jun, [facility] [place] [facility] [address] [id number] [place] [address] Jun, [facility] [place] [facility] [address] [id number] [place] [address] Jun, [facility] [place] [facility] [address] [id number] [place] [address] Jun, [facility] [place] [facility] [address] [id number] [place] [address] May, [facility] [place] [facility] [address] [id number] [place] [address] May, [facility] [place] [facility] [address] [id number] [place] [address] May, [facility] [place] [facility] [address] [id number] [place] [address] May, [facility] [place] [facility] [address] [id number] [place] [address] May, [facility] [place] [facility] [id number] [address] 06 May, 2011 [facility] [id number] [address] Apr, [facility] [id number] [place] [address] 07 Mar, 2011 [facility] [id number] [address] Mar, [facility] [id number] [place] [address] Feb, [facility] [id number] [place] [address] Jan, [facility] [id number], [place] [address] Mar, [facility] [id number] [place] [address] 15 Mar, 2009 [facility] [id number], [place] [address] Mar, [facility] [id number] [place] [address] Mar, [facility] [id number] [place] [address] Mar, [facility] [id number] [place] [address] 16 Feb, 2009 [facility] [id number] [place] [address] Feb, [facility] [id number] [place] [address] Nov, [facility] [id number] [address] 10 May, 2008 IMMUNIZATIONS No Known Immunizations SOCIAL HISTORY Never Assessed REASON FOR VISIT Lab results PLAN OF CARE VITAL SIGNS MEDICATIONS Unknown Medications RESULTS No Results PROCEDURES No Known procedures INSTRUCTIONS MEDICATIONS ADMINISTERED No Known Medications MEDICAL (GENERAL) HISTORY Type Description Date Medical History HELP syndrome Medical History bi-polar Medical History hypertension Medical History hx of seizure x1, isolated Surgical History gallbladder 10/2013 Surgical History 03/2014 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
--- OUTSIDE RECORDS SUMMARY | 2017-12-25 20:17 | XMS REPORT ---
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 Role Phone OLY DURBIN Unavailable PROBLEMS Type Condition ICD9-CM Code [id number] Code Onset Dates Condition Status SNOMED Code Problem Mood disorder F39 Active 63480867 Problem 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 Active 65428938 Problem PTSD (post-traumatic stress disorder) F43.10 Active 63710324 Problem Obsessive-compulsive disorder, unspecified type F42.9 Active 472400603 Problem Bipolar I disorder with depression F31.9 Active [id number] ALLERGIES No Information SOCIAL HISTORY Never Assessed PLAN OF CARE Activity Details Follow Up 2 Weeks Reason: Follow-up VITAL SIGNS MEDICATIONS Unknown Medications RESULTS No Results PROCEDURES Procedure Date Ordered Result Body Site Psychotherapy, patient &/family, 45 minutes, established patient September 17, 2016 IMMUNIZATIONS No Known Immunizations MEDICAL (GENERAL) HISTORY Type Description Date Medical History HELP syndrome Medical History bi-polar Medical History hypertension Medical History hx of seizure x1, isolated Surgical History gallbladder 10/2013 Surgical History 03/2014 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
--- OUTSIDE RECORDS SUMMARY | 2017-12-25 20:17 | XMS REPORT ---
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 Name Role Phone OLY DURBIN Unavailable PROBLEMS Type Condition ICD9-CM Code [id number] Code Onset Dates Condition Status SNOMED Code Problem Mood disorder F39 Active 30138120 Problem 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 Active 62800350 Problem PTSD (post-traumatic stress disorder) F43.10 Active 95606800 Problem Obsessive-compulsive disorder, unspecified type F42.9 Active 081955310 Problem Bipolar I disorder with depression F31.9 Active [id number] ALLERGIES No Information SOCIAL HISTORY Never Assessed PLAN OF CARE Activity Details Follow Up 1 Week Reason: Follow-up VITAL SIGNS MEDICATIONS Unknown Medications RESULTS No Results PROCEDURES Procedure Date Ordered Result Body Site Psychotherapy, patient &/family, 45 minutes, established patient June 25, 2016 IMMUNIZATIONS No Known Immunizations MEDICAL (GENERAL) HISTORY Type Description Date Medical History HELP syndrome Medical History bi-polar Medical History hypertension Medical History hx of seizure x1, isolated Surgical History gallbladder 10/2013 Surgical History 03/2014 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
--- OUTSIDE RECORDS SUMMARY | 2017-12-25 20:17 | XMS REPORT ---
Author Author OLY DURBIN [facility] Address [address] [place] [address] Care Team Providers Care Intake Clerk Name Role Phone OLY DURBIN Unavailable PROBLEMS Type Condition ICD9-CM Code ZFH67-TD Code Onset Dates Condition Status SNOMED Code Problem Bipolar I disorder with depression F31.9 Active 68998338 Problem Amenorrhea N91.2 Active 19165095 Problem Social anxiety disorder F40.10 Active 23174589 Problem Obsessive-compulsive disorder, unspecified type F42.9 Active 221878731 Problem PTSD (post-traumatic stress disorder) F43.10 Active 90961369 Problem Mood disorder F39 Active 81706990 Problem 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 Active 70774843 ALLERGIES No Information ENCOUNTERS Encounter Location Date Diagnosis [place] [id number] [place] [address] 44404- 8080 Oct, [place] [address] 29862- 5180 Oct, [place] [address] [place] [id number] [place] [address] 18284- 0971 Sep, [place] [address] [place] [id number] [place] [address] 70618- 7714 Sep, [place] [address] [place] [id number] [place] [address] 09462- 7609 Sep, PTSD (post-traumatic stress disorder) F43.10 and Bipolar I disorder with depression F31.9 [facility] [address] [place] [id number] [place] [address] 98122- 3792 August, PTSD (post-traumatic stress disorder) F43.10 and Bipolar I disorder with depression F31.9 [facility] [address] [place] [id number] [place] [address] 66417- 8658 August, Bipolar I disorder with depression F31.9 ; PTSD (post- traumatic stress disorder) F43.10 ; 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 ; Social anxiety disorder F40.10 and BMI 50.0-59.9, adult Z68.43 [place] [id number] [place] [address] 29222- 4274 August, [facility] [address] [place] [id number] [place] [address] 75410- 4593 August, Bipolar I disorder with depression F31.9 ; PTSD (post- traumatic stress disorder) F43.10 ; 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 ; Social anxiety disorder F40.10 and BMI 50.0-59.9, adult Z68.43 [place] [address] [place] [id number] [place] [address] 79184- 8531 August, [place] [address] [place] [id number] [place] [address] 28663- 8024 August, [place] [address] [place] [id number] [place] [address] 15744- 5106 August, PTSD (post-traumatic stress disorder) F43.10 and Bipolar I disorder with depression F31.9 [place] [id number] [place] [address] 71719- 7917 August, [place] [address] [place] [id number] [place] [address] 89047- 5213 Jul, Bipolar I disorder with depression F31.9 ; PTSD (post- traumatic stress disorder) F43.10 ; 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 ; Social anxiety disorder F40.10 and BMI 50.0-59.9, adult Z68.43 [place] [id number] [place] [address] 85521- 2048 Jul, PTSD (post-traumatic stress disorder) F43.10 and Bipolar I disorder with depression F31.9 [place] [address] [place] [id number] [place] [address] 77819- 0984 Jul, Pelvic pain R10.2 ; Amenorrhea N91.2 and BMI 50.0-59.9, adult Z68.43 [facility] [address] [place] [id number] [place] [address] 63393- 1918 26 Jun, 2017 BMI 50.0-59.9, adult Z68.43 ; Bipolar I disorder with depression F31.9 ; PTSD (post-traumatic stress disorder) F43.10 and 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 [facility] [address] [place] [id number] [place] [address] 32867 -7610 15 Jun, 2017 Other viral agents as the cause of diseases classified elsewhere B97.89 ; Other specified respiratory disorders J98.8 ; Bronchitis J40 and Cough R05 [place] [address] [place] [id number] [place] [address] 28935- 0534 Jun, PTSD (post-traumatic stress disorder) F43.10 [place] [address] [place] [id number] [place] [address] 70734- 7783 Jun, PTSD (post-traumatic stress disorder) F43.10 and Bipolar I disorder with depression F31.9 [place] [address] [place] [id number] [place] [address] 21755- 2397 13 May, 2017 PTSD (post-traumatic stress disorder) F43.10 and Bipolar I disorder with depression F31.9 [place] [address] [place] [id number] [place] [address] 20233- 6715 12 May, 2017 [place] [address] [place] [id number] [place] [address] 84273- 5858 07 May, 2017 PTSD (post-traumatic stress disorder) F43.10 and Bipolar I disorder with depression F31.9 [facility] [address] [place] [id number] [place] [address] 18703- 8176 Apr, PTSD (post-traumatic stress disorder) F43.10 and Bipolar I disorder with depression F31.9 [place] [address] [place] [id number] [place] [address] 28435- 7850 Apr, PTSD (post-traumatic stress disorder) F43.10 and Bipolar I disorder with depression F31.9 [facility] [address] [place] [address] 10524- 4519 Mar, PTSD (post-traumatic stress disorder) F43.10 ; Obsessive- compulsive disorder, unspecified type F42.9 ; Bipolar I disorder with depression F31.9 and 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 [facility] [address] [place] [id number] [place] [address] 25109- 5823 Mar, PTSD (post-traumatic stress disorder) F43.10 and Bipolar I disorder with depression F31.9 [facility] [address] [place] [id number] [place] [address] 77767- 2891 Feb, PTSD (post-traumatic stress disorder) F43.10 and Bipolar I disorder with depression F31.9 [facility] [address] [place] [id number] [place] [address] 29415- 0299 Feb, PTSD (post-traumatic stress disorder) F43.10 and Bipolar I disorder with depression F31.9 [facility] [address] [place] [id number] [place] [address] 54893 -3381 Jan, Strep pharyngitis J02.0 [facility] [id number] [place] [address] 80830- 4690 Jan, [facility] [id number] [place] [address] 27031- 4315 Jan, [facility] [id number] [place] [address] 41234- 0459 Jan, PTSD (post-traumatic stress disorder) F43.10 and Bipolar I disorder with depression F31.9 [facility] [address] [place] [address] 73136- 0265 05 Jan, 2017 PTSD (post-traumatic stress disorder) F43.10 and Bipolar I disorder with depression F31.9 [facility] [address] [place] [id number] [address]- 2278 05 Jan, 2017 Other correction (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.899 [place] [address] [place] [id number] [place] [address] 08958- 1880 02 Jan, 2017 PTSD (post-traumatic stress disorder) F43.10 ; Obsessive- compulsive disorder, unspecified type F42.9 ; Bipolar I disorder with depression F31.9 and Other correction (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.899 [place] [id number] [place] [address] 93957- 1731 27 Dec, 2016 Encounter for IUD removal Z30.432 and control counseling Z30.09 [place] [address] [place] [id number] [place] [address] 89645- 5012 25 Dec, 2016 PTSD (post-traumatic stress disorder) F43.10 ; Obsessive- compulsive disorder, unspecified type F42.9 and Bipolar I disorder with depression F31.9 [place] [id number] [place] [address] 07933- 0884 Dec, PTSD (post-traumatic stress disorder) F43.10 and Bipolar I disorder with depression F31.9 [place] [id number] [place] [address] 40044- 0865 12 Dec, 2016 PTSD (post-traumatic stress disorder) F43.10 and Bipolar I disorder with depression F31.9 [place] [address] [address]- 9335 11 Dec, 2016 Mood disorder F39 [place] [id number] [place] [address] 95972- 5083 08 Dec, 2016 PTSD (post-traumatic stress disorder) F43.10 ; Mood disorder F39 and Obsessive-compulsive disorder, unspecified type F42.9 [place] [address] [address]- 2896 07 Dec, 2016 PTSD (post-traumatic stress disorder) F43.10 and Bipolar I disorder with depression F31.9 [facility] [address] [address] -2137 05 Dec, 2016 Adverse drug reaction, initial encounter T88.7XXA [facility] [address] [place] [id number] [address]- 4247 Dec, [facility] [address] [place] [id number] [address]- 5030 Nov, PTSD (post-traumatic stress disorder) F43.10 and Bipolar I disorder with depression F31.9 [facility] [address] [address]- 2137 Nov, PTSD (post-traumatic stress disorder) F43.10 ; Mood disorder F39 and Obsessive-compulsive disorder, unspecified type F42.9 [facility] [address] [address]- 8927 Nov, PTSD (post-traumatic stress disorder) F43.10 and Bipolar I disorder with depression F31.9 [facility] [address] [address]- 6708 Nov, PTSD (post-traumatic stress disorder) F43.10 and Bipolar I disorder with depression F31.9 [facility] [address] [address] Nov, [facility] [address] [address]- 8400 Nov, PTSD (post-traumatic stress disorder) F43.10 and Bipolar I disorder with depression F31.9 [facility] [address] [place] [id number] [address]- 2579 Nov, PTSD (post-traumatic stress disorder) F43.10 and Bipolar I disorder with depression F31.9 [facility] [address] [place] [id number] [address]- 6325 Oct, [facility] [address] [place] [id number] [address]- 5944 Oct, PTSD (post-traumatic stress disorder) F43.10 ; Mood disorder F39 and Obsessive-compulsive disorder, unspecified type F42.9 [facility] [address] [address]- 3422 Oct, PTSD (post-traumatic stress disorder) F43.10 and Bipolar I disorder with depression F31.9 [facility] [address] [address]- 8680 Oct, PTSD (post-traumatic stress disorder) F43.10 and Bipolar I disorder with depression F31.9 [facility] [id number] [place] [address] 54172- 7626 Oct, PTSD (post-traumatic stress disorder) F43.10 ; Mood disorder F39 and Obsessive-compulsive disorder, unspecified type F42.9 [facility] [address] [address]- 0430 Oct, [facility] [address] [place] [id number] [place] [address] 06150- 4815 Oct, PTSD (post-traumatic stress disorder) F43.10 and Bipolar I disorder with depression F31.9 [facility] [id number] [place] [address] 90052- 0340 Oct, PTSD (post-traumatic stress disorder) F43.10 ; Mood disorder F39 and Obsessive-compulsive disorder, unspecified type F42.9 [facility] [address] [address]- 2740 Sep, PTSD (post-traumatic stress disorder) F43.10 and Bipolar I disorder with depression F31.9 [facility] [address] [place] [id number] [address]- 9826 Sep, PTSD (post-traumatic stress disorder) F43.10 ; Mood disorder F39 and Obsessive-compulsive disorder, unspecified type F42.9 [facility] [address] [place] [id number] [address]- 8035 Sep, PTSD (post-traumatic stress disorder) F43.10 and Bipolar I disorder with depression F31.9 [facility] [address] [address]- 6836 Sep, PTSD (post-traumatic stress disorder) F43.10 and Bipolar I disorder with depression F31.9 [facility] [id number] [place] [address] 40814- 6696 August, PTSD (post-traumatic stress disorder) F43.10 and Bipolar I disorder with depression F31.9 [facility] [id number] [place] [address] 18020 -1249 August, Pharyngitis due to other organism J02.8 [facility] [address] [place] [id number] [place] [address] 29335- 0496 August, PTSD (post-traumatic stress disorder) F43.10 ; Bipolar 1 disorder, mixed F31.60 and Other correction (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.899 [facility] [address] [place] [id number] [place] [address] 59865- 6588 August, PTSD (post-traumatic stress disorder) F43.10 and Bipolar I disorder with depression F31.9 [facility] [id number] [place] [address] 05924- 0330 Jul, PTSD (post-traumatic stress disorder) F43.10 and Bipolar I disorder with depression F31.9 [facility] [id number] [place] [address] 01910- 1026 Jul, PTSD (post-traumatic stress disorder) F43.10 and Bipolar I disorder with depression F31.9 [facility] [id number] [place] [address] 57113- 2646 Jul, PTSD (post-traumatic stress disorder) F43.10 and Bipolar I disorder with depression F31.9 [facility] [address] [place] [address] 74562- 6245 Jul, 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 [place] [address] [place] [id number] [place] [address] 83947- 8814 Jun, PTSD (post-traumatic stress disorder) F43.10 and Bipolar I disorder with depression F31.9 [place] [address] [place] [id number] [place] [address] 55268- 3282 Jun, Bipolar 1 disorder, mixed F31.60 ; PTSD (post-traumatic stress disorder) F43.10 and 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 [place] [address] 10074- 2414 Jun, PTSD (post-traumatic stress disorder) F43.10 and Depression , unspecified depression type F32.9 [place] [address] 80368- 5162 Jun, PTSD (post-traumatic stress disorder) F43.10 and Depression , unspecified depression type F32.9 [place] [address] 38073- 1345 Jun, PTSD (post-traumatic stress disorder) F43.10 and Depression , unspecified depression type F32.9 [facility] [address] 80591 -4377 May, Fever, unspecified fever cause R50.9 and Gastroenteritis K52.9 [place] [address] 37480- 2276 Mar, Sprain of other ligament of right ankle, subsequent encounter S93.491D [place] [address] [place] [id number] [place] [address] 77210- 9715 Mar, [facility] [address] 71014 -5001 Feb, Scabies infestation B86 [place] [address] 10756- 2459 Feb, Dental caries K02.9 [place] [address] [address]- 3280 Jan, [facility] [address] [place] [id number] [place] [address] 10938 -1288 Jan, Pharyngitis, unspecified etiology J02.9 [facility] [id number] [place] [address] 56728- 8968 Jan, [facility] [address] [place] [id number] [place] [address] 24165- 3924 Jan, Bipolar affective disorder, remission status unspecified F31.9 [place] [address] [place] [id number] [place] [address] 27468- 1117 Jan, Encounter for dental examination and cleaning without abnormal findings Z01.20 [facility] [address] [place] [id number] [place] [address] 23367- 2469 Jan, Bipolar affective disorder, remission status unspecified F31.9 [facility] [address] [place] [id number] [place] [address] 76574- 3813 Dec, Bipolar affective disorder, remission status unspecified F31.9 and Depression, unspecified depression type F32.9 [place] [address] [place] [id number] [place] [address] 01508- 7104 Dec, Unspecified mood [affective] disorder F39 and Generalized anxiety disorder F41.1 [place] [address] [place] [id number] [place] [address] 07698- 1678 Dec, Depression, unspecified depression type F32.9 [place] [address] [place] [id number] [place] [address] 60004- 3000 Nov, Dental caries K02.9 [place] [address] [place] [id number] [place] [address] 02819- 4920 Nov, Dental examination Z01.20 [facility] [address] [place] [address] 96098- 5907 Sep, Bipolar affective disorder, remission status unspecified F31.9 [facility] [address] [place] [id number] [place] [address] 05453- 7741 August, Tension headache G44.209 [facility] [address] 56358 -7331 Jul, [facility] [address] 88500 -6684 Jul, Upper respiratory infection J06.9 and Gastroenteritis K52.9 [facility] [address] 27923- 7121 Jun, Bronchitis J40 [facility] [address] 38748 -3780 Feb, Thoracic back pain M54.6 and Left shoulder pain M25.512 [facility] [address] 88713- 2617 Feb, [facility] [address] [place] [id number] [place] [address] 74881- 6011 Jul, [facility] [address] [place] [id number] [place] [address] 37145- 2872 Jul, [facility] [address] [place] [id number] [place] [address] 26622- 8130 Apr, [facility] [address] [place] [id number] [place] [address] 75931- 5326 Apr, [facility] [address] [place] [id number] [place] [address] 40957- 3750 Apr, [facility] [address] [place] [id number] [place] [address] 72638- 4713 Apr, [facility] [address] [place] [id number] [place] [address] 30980- 4252 Mar, [facility] [address] [place] [id number] [place] [address] 98494- 5237 Mar, [facility] [address] [place] [facility] [address]351 Mar, [facility] [place] [facility] [address] [id number] [place] 3268 Mar, [facility] [place] [facility] [address] [id number] [place] [address]- 6991 Feb, [facility] [place] [facility] [address] [id number] [place] 1444 Feb, [facility] [place] [facility] [address] [id number] [place] [address]- 7781 Feb, [facility] [place] [facility] [address] [id number] [place] [address]- 9812 Feb, [facility] [place] [facility] [address] [id number] [place] [address]- 0951 Jan, [facility] [place] [facility] [address] [id number] [place] [address]- 3088 15 Jan, 2014 [facility] [place] [facility] [address] [id number] [place] [address]- 9077 14 Jan, 2014 [facility] [place] [facility] [address] [id number] [place] [address]- 0469 14 Jan, 2014 [facility] [place] [facility] [address] [id number] [place] [address]- 5302 Jan, [facility] [place] [facility] [address] [id number] [place] [address]- 7707 Jan, [facility] [place] [facility] [address] [id number] [place] [address]- 5639 Dec, [facility] [place] [facility] [address] [id number] [place] [address]- 2180 Dec, [facility] [place] [facility] [address] [id number] [place] [address]- 0874 Nov, [facility] [place] [facility] [address] [id number] [place] [address]- 5667 Nov, [facility] [place] [facility] [address] [id number] [place] [address]- 1743 Nov, [facility] [place] [facility] [address] [id number] [place] [address]- 3467 Nov, [facility] [place] [facility] [address] [id number] [place] [address]- 5902 Nov, [facility] [place] [facility] [address] [id number] [place] [address]- 1780 Nov, [facility] [place] [facility] [address] [id number] [place] [address]- 9136 Nov, [facility] [place] [facility] [address] [id number] [place] [address]- 5632 Nov, [facility] [place] [facility] [address] [id number] [place] [address]- 4144 Nov, [facility] [place] [facility] [address] [id number] [place] [address]- 6473 Oct, [facility] [place] [facility] [address] [id number] [place] [address]- 6356 Oct, [facility] [place] [facility] [address] [id number] [place] [address]- 3188 Oct, [facility] [place] [facility] [address] [id number] [place] [address]- 6346 Oct, [facility] [place] [facility] [address] [id number] [place] [address]- 6348 Oct, [facility] [place] [facility] [address] [id number] [place] [address]- 3666 Oct, [facility] [place] [facility] [address] [id number] [place] [address]- 9081 Oct, [facility] [place] [facility] [address] [id number] [place] [address]- 7740 Oct, [facility] [place] [facility] [address] [id number] [place] [address]- 7872 Oct, 2013 [facility] [place] [facility] [address] [id number] [place] [address]- 2084 Oct, 2013 [facility] [place] [facility] [address] [id number] [place] [address]- 2681 Oct, 2013 [facility] [place] [facility] [address] [id number] [place] [address]- 5487 Oct, 2013 [facility] [place] [facility] [address] [id number] [place] [address]- 1089 Oct, 2013 [facility] [place] [facility] [address] [id number] [place] [address]- 9672 Oct, [facility] [place] [facility] [address] [id number] [place] [address]- 6011 Oct, [facility] [place] [facility] [address] [id number] [place] [address]- 6647 Oct, [facility] [place] [facility] [address] [id number] [place] [address]- 7926 Oct, [facility] [place] [facility] [address] [id number] [place] [address]- 2407 Oct, [facility] [place] [facility] [address] [id number] [place] [address]- 8514 Oct, [facility] [place] [facility] [address] [id number] [place] [address] Sep, [facility] [place] [facility] [address] [id number] [place] [address] Sep, [facility] [place] [facility] [address] [id number] [place] [address] Sep, [facility] [place] [facility] [address] [id number] [place] [address] Sep, [facility] [place] [facility] [address] [id number] [place] [address] Feb, [facility] [place] [facility] [address] [id number] [place] [address] Feb, [facility] [address] [id number] [place] [address] Dec, [facility] [address] [id number] [place] [address] Dec, [facility] [address] [id number] [place] [address] Nov, [facility] [address] [id number] [place] [address] Nov, [facility] [address] [id number] [place] [address] Nov, [facility] [address] [id number] [place] [address] Nov, [facility] [address] [id number] [place] [address] Nov, [facility] [address] [id number] [place] [address] Nov, [facility] [address] [id number] [place] [address] Oct, [facility] [address] [id number] [place] [address] Apr, [facility] [address] [id number] [place] [address] August, [facility] [address] [id number] [place] [address] August, [facility] [address] [id number] [place] [address] August, [facility] [address] [id number] [place] [address] Jul, [facility] [address] [id number] [place] [address] Jun, [facility] [place] [facility] [address] [id number] [place] [address] Jun, [facility] [place] [facility] [address] [id number] [place] [address] Jun, [facility] [place] [facility] [address] [id number] [place] [address] 14 Jun, 2011 [facility] [place] [facility] [address] [id number] [place] [address] Jun, [facility] [place] [facility] [address] [id number] [place] [address] Jun, [facility] [place] [facility] [address] [id number] [place] [address] May, [facility] [place] [facility] [address] [id number] [place] [address] 16 May, 2011 [facility] [place] [facility] [address] [id number] [place] [address] May, [facility] [place] [facility] [address] [id number] [place] [address] May, [facility] [place] [facility] [address] [id number] [place] [address] May, [facility] [place] [facility] [address] [id number] [place] [address] May, [facility] [place] [facility] [address] [id number] [place] [address] Apr, [facility] [place] [facility] [address] [id number] [place] [address] Mar, [facility] [place] [facility] [address] [id number] [place] [address] Mar, [facility] [place] [facility] [address] [id number] [place] [address] Feb, [facility] [place] [facility] [id number] [address] 13 Jan, 2011 [facility] [id number] [address] Mar, [facility] [id number] [address] 15 Mar, 2009 [facility] [id number] [address] Mar, [facility] [id number] [address] Mar, [facility] [id number] [address] Mar, [facility] [id number] [place] [address] Feb, [facility] [id number] [place] [address] Feb, [facility] [id number] [address] Nov, [facility] [id number] [address] May, IMMUNIZATIONS No Known Immunizations SOCIAL HISTORY Never Assessed REASON FOR VISIT Follow-up PTSD/Bipolar Disorder PLAN OF CARE Activity Details Follow Up 1 Week Reason: Follow-up VITAL SIGNS MEDICATIONS Unknown Medications RESULTS No Results PROCEDURES Procedure Date Ordered Result Body Site Psychotherapy, patient &/family, 45 minutes, established patient Apr 24, 2017 INSTRUCTIONS MEDICATIONS ADMINISTERED No Known Medications MEDICAL (GENERAL) HISTORY Type Description Date Medical History HELP syndrome Medical History bi-polar Medical History hypertension Medical History hx of seizure x1, isolated Surgical History gallbladder 10/2013 Surgical History 03/2014 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
--- OUTSIDE RECORDS SUMMARY | 2017-12-25 20:18 | XMS REPORT ---
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[employer] Name Role Phone OLY DURBIN Unavailable PROBLEMS Type Condition ICD9-CM Code EAV57-WQ Code Onset Dates Condition Status SNOMED Code Problem Mood disorder F39 Active 37496243 Problem 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 Active 18485829 Problem PTSD (post-traumatic stress disorder) F43.10 Active 62684754 Problem Obsessive-compulsive disorder, unspecified type F42.9 Active 707496930 Problem Bipolar I disorder with depression F31.9 Active [id number] ALLERGIES No Information ENCOUNTERS Encounter Location Date Diagnosis [facility] [place] [address] [address] August, [facility] [place] [address] [address] Jul, [facility] [place] [address] [address] Jul, [facility] [place] [address] [address] Jun, BMI 50.0-59.9, adult Z68.43 ; Bipolar I disorder with depression F31.9 ; PTSD (post-traumatic stress disorder) F43.10 and 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 [facility] [address] [address] 15 Jun, 2017 Other viral agents as the cause of diseases classified elsewhere B97.89 ; Other specified respiratory disorders J98.8 ; Bronchitis J40 and Cough R05 [facility] [place] [address] [address] 13 Jun, 2017 PTSD (post-traumatic stress disorder) F43.10 [facility] [place] [address] [id number] [address] 13 Jun, 2017 PTSD (post-traumatic stress disorder) F43.10 and Bipolar I disorder with depression F31.9 [facility] [place] [address] [facility] [id number] [address] 13 May, 2017 PTSD (post-traumatic stress disorder) F43.10 and Bipolar I disorder with depression F31.9 [facility] [place] [address] [id number] [address] 12 May, 2017 [facility] [place] [id number] [place] [address]- [address] 07 May, 2017 PTSD (post-traumatic stress disorder) F43.10 and Bipolar I disorder with depression F31.9 [facility] [place] [address] [id number] [address] 30 Apr, 2017 PTSD (post-traumatic stress disorder) F43.10 and Bipolar I disorder with depression F31.9 [facility] [place] [address] [id number] [address] Apr, PTSD (post-traumatic stress disorder) F43.10 and Bipolar I disorder with depression F31.9 [facility] [place] [address] [id number] [address] 18 Mar, 2017 PTSD (post-traumatic stress disorder) F43.10 ; Obsessive- compulsive disorder, unspecified type F42.9 ; Bipolar I disorder with depression F31.9 and Other intermediate manager (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.899 [facility] [place] [address] [id number] [address] Mar, PTSD (post-traumatic stress disorder) F43.10 and Bipolar I disorder with depression F31.9 [facility] [place] [address] [id number] [address] Feb, PTSD (post-traumatic stress disorder) F43.10 and Bipolar I disorder with depression F31.9 [facility] [place] [address] [address] 07 Feb, 2017 PTSD (post-traumatic stress disorder) F43.10 and Bipolar I disorder with depression F31.9 [facility] [id number] [address] Jan, Strep pharyngitis J02.0 [facility] [place] [id number] [place] [address]- 7671 Jan, [facility] [place] [id number] [place] [address] 8[address]- 1496 Jan, [facility] [place] [id number] [place] [address]- 2017 Jan, PTSD (post-traumatic stress disorder) F43.10 and Bipolar I disorder with depression F31.9 [facility] [place] [id number] [place] [address] 36[address]- 5715 Jan, PTSD (post-traumatic stress disorder) F43.10 and Bipolar I disorder with depression F31.9 [facility] [place] [id number] [place] [address] 66757- 3247 Jan, Other intermediate manager (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.899 [facility] [place] [id number] [place] [address] 19252- 6698 Jan, PTSD (post-traumatic stress disorder) F43.10 ; Obsessive- compulsive disorder, unspecified type F42.9 ; Bipolar I disorder with depression F31.9 and Other fpc (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.899 [facility] [place] [address] [address] Dec, Encounter for IUD removal Z30.432 and control counseling Z30.09 [facility] [place] [id number] [address] Dec, PTSD (post-traumatic stress disorder) F43.10 ; Obsessive- compulsive disorder, unspecified type F42.9 and Bipolar I disorder with depression F31.9 [facility] [place] [address] [id number] [address] 25 Dec, 2016 PTSD (post-traumatic stress disorder) F43.10 and Bipolar I disorder with depression F31.9 [facility] [place] [id number] [place] [address]- 6177 12 Dec, 2016 PTSD (post-traumatic stress disorder) F43.10 and Bipolar I disorder with depression F31.9 [facility] [place] [id number] [place] [address] 82714- 2319 11 Dec, 2016 Mood disorder F39 [facility] [place] [id number] [place] [address] 0[address]25- 9024 08 Dec, 2016 PTSD (post-traumatic stress disorder) F43.10 ; Mood disorder F39 and Obsessive-compulsive disorder, unspecified type F42.9 [facility] [place] [id number] [place] [address] 93295- 7330 Dec, PTSD (post-traumatic stress disorder) F43.10 and Bipolar I disorder with depression F31.9 [facility] [id number] [place] [address]794 Dec, Adverse drug reaction, initial encounter T88.7XXA [facility] [place] [address] [address]- [address] Dec, [facility] [place] [id number] [place] [address]53- 5023 Nov, PTSD (post-traumatic stress disorder) F43.10 and Bipolar I disorder with depression F31.9 [facility] [place] [id number] [place] [address] 52644- 5070 Nov, PTSD (post-traumatic stress disorder) F43.10 ; Mood disorder F39 and Obsessive-compulsive disorder, unspecified type F42.9 [facility] [place] [address] [id number] [address]- 9462 Nov, PTSD (post-traumatic stress disorder) F43.10 and Bipolar I disorder with depression F31.9 [facility] [place] [address] [id number] [address] 2[address] Nov, PTSD (post-traumatic stress disorder) F43.10 and Bipolar I disorder with depression F31.9 [facility] [id number] [address] Nov, [facility] [place] [id number] [place] [address]80- 2390 Nov, PTSD (post-traumatic stress disorder) F43.10 and Bipolar I disorder with depression F31.9 [facility] [place] [id number] [place] [address] 66695- 1057 Nov, PTSD (post-traumatic stress disorder) F43.10 and Bipolar I disorder with depression F31.9 [facility] [place] [id number] [place] [address] 79869- 1810 Oct, [facility] [place] [id number] [place] [address] 31985- 5660 Oct, PTSD (post-traumatic stress disorder) F43.10 ; Mood disorder F39 and Obsessive-compulsive disorder, unspecified type F42.9 [facility] [place] [address] [address]- 8[address] Oct, PTSD (post-traumatic stress disorder) F43.10 and Bipolar I disorder with depression F31.9 [facility] [place] [id number] [address]- 0899 Oct, PTSD (post-traumatic stress disorder) F43.10 and Bipolar I disorder with depression F31.9 [facility] [place] [id number] [address]- 5333 Oct, PTSD (post-traumatic stress disorder) F43.10 ; Mood disorder F39 and Obsessive-compulsive disorder, unspecified type F42.9 [facility] [place] [id number] [address]- 0360 Oct, [facility] [place] [address] [address]- 7562 Oct, PTSD (post-traumatic stress disorder) F43.10 and Bipolar I disorder with depression F31.9 [facility] [place] [address] [address]- 4415 Oct, PTSD (post-traumatic stress disorder) F43.10 ; Mood disorder F39 and Obsessive-compulsive disorder, unspecified type F42.9 [address] [address]- 4764 Sep, PTSD (post-traumatic stress disorder) F43.10 and Bipolar I disorder with depression F31.9 [facility] [place] [id number] [place] [address] 78371- 1466 Sep, PTSD (post-traumatic stress disorder) F43.10 ; Mood disorder F39 and Obsessive-compulsive disorder, unspecified type F42.9 [address] [address] [address] [address]- 7024 Sep, PTSD (post-traumatic stress disorder) F43.10 and Bipolar I disorder with depression F31.9 [address] [place] [address] [place] [address] 89045- 0126 Sep, PTSD (post-traumatic stress disorder) F43.10 and Bipolar I disorder with depression F31.9 [place] [id number] [address]- 2509 August, PTSD (post-traumatic stress disorder) F43.10 and Bipolar I disorder with depression F31.9 [facility] [address] [place] [address]42 [address]17 August, Pharyngitis due to other organism J02.8 [facility] [place] [address] [place] [address] 18284- 8678 August, PTSD (post-traumatic stress disorder) F43.10 ; Bipolar 1 disorder, mixed F31.60 and Other fpc (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.899 [facility] [place] [id number] [address] 2546 August, PTSD (post-traumatic stress disorder) F43.10 and Bipolar I disorder with depression F31.9 [facility] [place] [id number] [address] 2546 Jul, PTSD (post-traumatic stress disorder) F43.10 and Bipolar I disorder with depression F31.9 [facility] [place] [id number] [address] 2546 Jul, PTSD (post-traumatic stress disorder) F43.10 and Bipolar I disorder with depression F31.9 [facility] [place] [id number], [place] [address] 2546 Jul, PTSD (post-traumatic stress disorder) F43.10 and Bipolar I disorder with depression F31.9 [facility] [place] [id number] [address]- 4936 Jul, Other fpc (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.899 [facility] [place] [id number] [address] 2546 Jun, PTSD (post-traumatic stress disorder) F43.10 and Bipolar I disorder with depression F31.9 [facility] [place] [id number] [address] 2546 Jun, Bipolar 1 disorder, mixed F31.60 ; PTSD (post-traumatic stress disorder) F43.10 and Other fpc (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.899 [facility] [place] [id number] [address] 2546 Jun, PTSD (post-traumatic stress disorder) F43.10 and Depression , unspecified depression type F32.9 [facility] [place] [id number] [address] 2546 14 Jun, 2016 PTSD (post-traumatic stress disorder) F43.10 and Depression , unspecified depression type F32.9 [place] [id number] [place] [address] 47154- 5742 Jun, PTSD (post-traumatic stress disorder) F43.10 and Depression , unspecified depression type F32.9 [facility] [id number] [place] [address] 58[address] -[address]73 May, Fever, unspecified fever cause R50.9 and Gastroenteritis K52.9 [place] [address] [address]- 7070 Mar, Sprain of other ligament of right ankle, subsequent encounter S93.491D [place] [address] [address]12- 9660 Mar, [facility] [place] [address] 81583 -[address]76 Feb, Scabies infestation B86 [place] [address] 31856- 3186 Feb, Dental caries K02.9 [place] [address] 29175- 1460 Jan, [facility] [place] [address] [address] Jan, Pharyngitis, unspecified etiology J02.9 [address] [place] [address] 06782- 9279 Jan, [place] [address] 73206- 7251 Jan, Bipolar affective disorder, remission status unspecified F31.9 [place] [address] 60656- 4036 Jan, Encounter for dental examination and cleaning without abnormal findings Z01.20 [place] [address] 58383- 3704 Jan, Bipolar affective disorder, remission status unspecified F31.9 [facility] [place] [id number] [place] [address] 88681- 7504 29 Dec, 2015 Bipolar affective disorder, remission status unspecified F31.9 and Depression, unspecified depression type F32.9 [place] [id number] [place] [address] 55204- 1181 12 Dec, 2015 Unspecified mood [affective] disorder F39 and Generalized anxiety disorder F41.1 [place] [id number] [place] [address] 02672- 6080 08 Dec, 2015 Depression, unspecified depression type F32.9 [place] [address] 79842- 4327 Nov, Dental caries K02.9 [place] [address] 65502- 3556 Nov, Dental examination Z01.20 [place] [address] 54529- 1775 Sep, Bipolar affective disorder, remission status unspecified F31.9 [place] [address] 59433- 3022 August, Tension headache G44.209 [facility] [id number] [place] [address] 16764 -8226 Jul, [facility] [id number] [place] [address] 46665 -1336 Jul, Upper respiratory infection J06.9 and Gastroenteritis K52.9 [place] [id number] [place] [address] 26329- 1454 Jun, Bronchitis J40 [facility] [address] 8[address] -3924 05 Feb, 2015 Thoracic back pain M54.6 and Left shoulder pain M25.512 [place] [address] 36101- 2628 Feb, [facility] [place] [facility] [address] [id number] [place] [address]- 3942 14 Jul, 2014 [facility] [place] [facility] [address] [id number] [place] [address]- 7912 Jul, [facility] [place] [facility] [address] [id number] [place] [address]- 2775 Apr, [facility] [place] [facility] [address] [id number] [place] [address]- 1726 Apr, [facility] [place] [facility] [address] [id number] [place] [address]- 2706 Apr, [facility] [place] [facility] [address] [id number] [place] [address]- 2586 Apr, [facility] [place] [facility] [address] [id number] [place] [address]- 4080 Mar, [facility] [place] [facility] [address] [id number] [address]- 5871 Mar, [facility] [place] [facility] [address] [id number] [place] [address]- 3530 Mar, [facility] [place] [facility] [address] [id number] [place] [address]- 8861 Mar, [facility] [place] [facility] [address] [id number], [place] [address]- 7642 Feb, [facility] [place] [facility] [address] [id number], [place] [address]- 9267 Feb, [facility] [place] [facility] [address] [id number] [place] [address]- 5380 Feb, [facility] [place] [facility] [address] [id number], [place] [address]- 3670 Feb, [facility] [place] [facility] [address] [id number] [place] [address]- 9541 Jan, [facility] [place] [facility] [address] [id number] [place] [address]- 8550 15 Jan, 2014 [facility] [place] [facility] [address] [id number] [place] [address]- 6816 14 Jan, 2014 [facility] [place] [facility] [address] [id number] [place] [address]- 3878 14 Jan, 2014 [facility] [place] [facility] [address] [id number] [place] [address]- 7897 13 Jan, 2014 [facility] [place] [facility] [address] [id number] [place] [address]- 9291 Jan, [facility] [place] [facility] [address] [id number] [place] [address]- 0030 15 Dec, 2013 [facility] [place] [facility] [address] [id number] [place] [address]- 1086 Dec, [facility] [place] [facility] [address] [id number] [place] [address]- 6260 Nov, [facility] [place] [facility] [address] [id number] [place] [address]- 9836 Nov, [facility] [place] [facility] [address] [id number] [place] [address]- 8250 Nov, [facility] [place] [facility] [address] [id number] [place] [address]- 3695 Nov, [facility] [place] [facility] [address] [id number] [place] [address]- 5160 Nov, [facility] [place] [facility] [address] [id number] [place] [address]- 7593 Nov, [facility] [place] [facility] [address] [id number] [place] [address]- 5001 Nov, [facility] [place] [facility] [address] [id number] [place] [address]- 2463 Nov, [facility] [place] [facility] [address] [id number] [place] [address]- 8522 Nov, [facility] [place] [facility] [address] [id number] [place] [address]- 8455 Oct, [facility] [place] [facility] [address] [id number] [place] [address]- 2093 Oct, [facility] [place] [facility] [address] [id number] [place] [address]- 3295 Oct, [facility] [place] [facility] [address] [id number] [place] [address]- 6916 Oct, [facility] [place] [facility] [address] [id number] [place] [address]- 9558 Oct, [facility] [place] [facility] [address] [id number] [place] [address]- 2711 Oct, [facility] [place] [facility] [address] [id number] [place] [address]- 7689 Oct, [facility] [place] [facility] [address] [id number] [place] [address]- 1371 Oct, [facility] [place] [facility] [address] [id number] [place] [address]- 8873 Oct, [facility] [place] [facility] [address] [id number] [place] [address]- 6095 Oct, [facility] [place] [facility] [address] [id number] [place] [address]- 9756 Oct, [facility] [place] [facility] [address] [id number] [place] [address]- 1846 Oct, [facility] [place] [facility] [address] [id number] [place] [address]- 5789 Oct, [facility] [place] [facility] [address] [id number] [place] [address]- 8655 Oct, [facility] [place] [facility] [address] [id number] [place] [address]- 9686 Oct, [facility] [place] [facility] [address] [id number] [place] [address]- 2222 Oct, [facility] [place] [facility] [address] [id number] [place] [address]- 8204 Oct, [facility] [place] [facility] [address] [id number] [place] 4475 Oct, [facility] [place] [facility] [address] [id number] [place] [address]- 6799 Oct, [facility] [place] [facility] [address] [id number] [place] [address]- 7736 Sep, [facility] [place] [facility] [address] [id number] [place] [address]- 1840 Sep, [facility] [place] [facility] [address] [id number] [place] [address]- 2760 Sep, [facility] [place] [facility] [address] [id number] [place] [address]- 9277 Sep, [facility] [place] [facility] [address] [id number] [place] [address]- 5952 Feb, [facility] [place] [facility] [address] [id number] [place] [address]- 9010 Feb, [facility] [place] [facility] [address] [id number] [place] [address]- 2003 Dec, [facility] [place] [facility] [address] [id number] [place] [address]- 2596 Dec, [facility] [place] [facility] [address] [id number] [place] [address]- 0064 Nov, [facility] [place] [facility] [address] [id number] [place] [address] Nov, [facility] [place] [facility] [address] [id number] [place] [address] Nov, [facility] [place] [facility] [address] [id number] [place] [address] Nov, [facility] [place] [facility] [address] [id number] [place] [address] Nov, [facility] [address] [id number] [place] [address] Nov, [facility] [place] [facility] [address] [id number] [place] [address] Oct, [facility] [address] [id number] [place] [address] Apr, [facility] [address] [id number] [place] [address] August, [facility] [address] [id number] [place] [address] August, [facility] [address] [id number] [place] [address] August, [facility] [address] [id number] [place] [address] Jul, [facility] [address] [id number] [place] [address] Jun, [facility] [address] [id number] [place] [address] Jun, [facility] [address] [id number] [place] [address] Jun, [facility] [place] [facility] [address] [id number] [place] [address] Jun, [facility] [place] [facility] [address] [id number] [place] [address] Jun, [facility] [place] [facility] [address] [id number] [place] [address] Jun, [facility] [place] [facility] [address] [id number] [place] [address] May, [facility] [place] [facility] [address] [id number] [place] [address] 16 May, 2011 [facility] [place] [facility] [address] [id number] [place] [address] 09 May, 2011 [facility] [place] [facility] [address] [id number] [place] [address] 07 May, 2011 [facility] [place] [facility] [address] [id number] [place] [address] May, [facility] [place] [facility] [address] [id number] [place] [address] May, [facility] [place] [facility] [address] [id number] [place] [address] Apr, [facility] [place] [facility] [address] [id number] [place] [address] Mar, [facility] [place] [facility] [address] [facility] [id number] [place] [address] Mar, [facility] [place] [facility] [address] [id number] [place] [address] Feb, [facility] [place] [facility] [address] [id number] [place] [address] Jan, [facility] [place] [facility] [address] [id number] [place] [address] 31 Mar, 2009 [facility] [place] [facility] [address] [id number] [address] 15 Mar, 2009 [facility] [place] [facility] [address] [id number], [place] [address] 10 Mar, 2009 [facility] [place] [facility] [address] [id number] [place] [address] 10 Mar, 2009 [facility] [place] [facility] [address] [facility] [id number][place] [address] 02 Mar, 2009 [facility] [place] [facility] [address] [facility] [id number] [place] [address] 16 Feb, 2009 [facility] [place] [facility] [address] [facility] [id number] [place] [address] Feb, [facility] [place] [address] [facility] [id number][place] [address] Nov, [facility] [place] [address] [facility] [id number] [place] [address] May, IMMUNIZATIONS No Known Immunizations SOCIAL HISTORY Never Assessed REASON FOR VISIT Follow-up PTSD/Bipolar Disorder PLAN OF CARE Activity Details Follow Up 1 Week Reason: Follow-up VITAL SIGNS MEDICATIONS Unknown Medications RESULTS No Results PROCEDURES Procedure Date Ordered Result Body Site Psychotherapy, patient &/family, 45 minutes, established patient November 07, 2016 INSTRUCTIONS MEDICATIONS ADMINISTERED No Known Medications MEDICAL (GENERAL) HISTORY Type Description Date Medical History HELP syndrome Medical History bi-polar Medical History hypertension Medical History hx of seizure x1, isolated Surgical History gallbladder 10/2013 Surgical History 03/2014 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
--- OUTSIDE RECORDS SUMMARY | 2017-12-25 20:18 | XMS REPORT ---
Author Author OLY DURBIN [facility] Address [address] [place] [address] Care Team Providers Care Director Of Parks And Recreation Name Role Phone OLY DURBIN Unavailable PROBLEMS Type Condition ICD9-CM Code [id number] Code Onset Dates Condition Status SNOMED Code Problem Bipolar I disorder with depression F31.9 Active 85414068 Problem Amenorrhea N91.2 Active 64441440 Problem Social anxiety disorder F40.10 Active 15994148 Problem Obsessive-compulsive disorder, unspecified type F42.9 Active 737213777 Problem PTSD (post-traumatic stress disorder) F43.10 Active 56717566 Problem Mood disorder F39 Active 37073139 Problem 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 Active 67749629 ALLERGIES No Information ENCOUNTERS Encounter Location Date Diagnosis [facility] [id number] [place] [address] 86243- 6050 Sep, [facility] [id number] [place] [address] 23562- 9630 Sep, [facility] [id number] [place] [address] 54785- 3228 Sep, [facility] [id number] [place] [address] 16725- 5583 August, [facility] [id number] [place] [address] 04048- 5490 August, [facility] [id number] [place] [address] 42480- 3585 August, PTSD (post-traumatic stress disorder) F43.10 and Bipolar I disorder with depression F31.9 [facility] [address], [place] [address] 0760 August, [facility] [id number] [place] [address] 99413- 6375 Jul, Bipolar I disorder with depression F31.9 ; PTSD (post- traumatic stress disorder) F43.10 ; 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 ; Social anxiety disorder F40.10 and BMI 50.0-59.9, adult Z68.43 [facility] [id number] [place] [address] 61780- 2066 18 Jul, 2017 PTSD (post-traumatic stress disorder) F43.10 and Bipolar I disorder with depression F31.9 [facility] [facility] [id number] [place] [address] 26860- 9556 09 Jul, 2017 Pelvic pain R10.2 ; Amenorrhea N91.2 and BMI 50.0-59.9, adult Z68.43 [facility] [id number] [place] [address] 09086- 5028 Jun, BMI 50.0-59.9, adult Z68.43 ; Bipolar I disorder with depression F31.9 ; PTSD (post-traumatic stress disorder) F43.10 and 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 [facility] [id number] [place] [address] 67810 -6653 Jun, Other viral agents as the cause of diseases classified elsewhere B97.89 ; Other specified respiratory disorders J98.8 ; Bronchitis J40 and Cough R05 [id number] [place] [address] 10673- 8316 Jun, PTSD (post-traumatic stress disorder) F43.10 [facility] [id number] [place] [address] 99392- 0851 Jun, PTSD (post-traumatic stress disorder) F43.10 and Bipolar I disorder with depression F31.9 [facility] [id number] [place] [address] 12613- 1142 13 May, 2017 PTSD (post-traumatic stress disorder) F43.10 and Bipolar I disorder with depression F31.9 [facility] [id number] [address] 4633 May, [facility] [id number] [place] [address] 14961- 0525 May, PTSD (post-traumatic stress disorder) F43.10 and Bipolar I disorder with depression F31.9 [facility] [id number] [place] [address] 52072- 4406 Apr, PTSD (post-traumatic stress disorder) F43.10 and Bipolar I disorder with depression F31.9 [facility] [facility] [id number] [place] [address] 13490- 6788 Apr, PTSD (post-traumatic stress disorder) F43.10 and Bipolar I disorder with depression F31.9 [facility] [facility] [id number] [place] [address] 61224- 7993 Mar, PTSD (post-traumatic stress disorder) F43.10 ; Obsessive- compulsive disorder, unspecified type F42.9 ; Bipolar I disorder with depression F31.9 and Other group home (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.899 [place] [facility] [id number] [place] [address] 52485- 4310 Mar, PTSD (post-traumatic stress disorder) F43.10 and Bipolar I disorder with depression F31.9 [facility] [id number] [place] [address] 16923- 6849 Feb, PTSD (post-traumatic stress disorder) F43.10 and Bipolar I disorder with depression F31.9 [facility] [id number] [place] [address] 61143- 0353 Feb, PTSD (post-traumatic stress disorder) F43.10 and Bipolar I disorder with depression F31.9 [facility] [id number] [place] [address] 70435 -3123 Jan, Strep pharyngitis J02.0 [facility] [id number] [place] [address] 59694- 7972 Jan, [facility] [address], [place] [address]- 4146 Jan, [facility] [id number] [place] [address] 37022- 6608 Jan, PTSD (post-traumatic stress disorder) F43.10 and Bipolar I disorder with depression F31.9 [facility] [facility] [id number] [place] [address] 44860- 1304 Jan, PTSD (post-traumatic stress disorder) F43.10 and Bipolar I disorder with depression F31.9 [place] [facility] [id number] [place] [address] 83338- 8104 Jan, Other terminal worker (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.899 [place] [address] [place] [address] 04666- 0548 02 Jan, 2017 PTSD (post-traumatic stress disorder) F43.10 ; Obsessive- compulsive disorder, unspecified type F42.9 ; Bipolar I disorder with depression F31.9 and Other terminal worker (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.899 [place] [id number] [place] [address] 25205- 7879 Dec, Encounter for IUD removal Z30.432 and control counseling Z30.09 [facility] [address], [place] [address]- 2629 Dec, PTSD (post-traumatic stress disorder) F43.10 ; Obsessive- compulsive disorder, unspecified type F42.9 and Bipolar I disorder with depression F31.9 [facility] [address], [place] [address]- 7963 Dec, PTSD (post-traumatic stress disorder) F43.10 and Bipolar I disorder with depression F31.9 [facility] [address], [place] [address]- 1811 Dec, PTSD (post-traumatic stress disorder) F43.10 and Bipolar I disorder with depression F31.9 [facility] [address], [place] [address]- 3296 11 Dec, 2016 Mood disorder F39 [facility] [id number] [place] [address] 10261- 1468 08 Dec, 2016 PTSD (post-traumatic stress disorder) F43.10 ; Mood disorder F39 and Obsessive-compulsive disorder, unspecified type F42.9 [facility] [id number] [place] [address] 87246- 4387 Dec, PTSD (post-traumatic stress disorder) F43.10 and Bipolar I disorder with depression F31.9 [facility] [id number] [place] [address] 02598 -3392 Dec, Adverse drug reaction, initial encounter T88.7XXA [facility] [id number] [place] [address] 68113- 7720 Dec, [facility] [id number] [place] [address] 35646- 8942 Nov, PTSD (post-traumatic stress disorder) F43.10 and Bipolar I disorder with depression F31.9 [facility] [id number] [place] [address] 27338- 1178 Nov, PTSD (post-traumatic stress disorder) F43.10 ; Mood disorder F39 and Obsessive-compulsive disorder, unspecified type F42.9 [facility] [address], [place] [address]- 2263 Nov, PTSD (post-traumatic stress disorder) F43.10 and Bipolar I disorder with depression F31.9 [facility] [address], [place] [address]- 0624 Nov, PTSD (post-traumatic stress disorder) F43.10 and Bipolar I disorder with depression F31.9 [facility] [address], [place] [address] -3369 Nov, [facility] [id number] [place] [address] 90666- 4119 Nov, PTSD (post-traumatic stress disorder) F43.10 and Bipolar I disorder with depression F31.9 [facility] [id number] [place] [address] 27557- 1460 Nov, PTSD (post-traumatic stress disorder) F43.10 and Bipolar I disorder with depression F31.9 [facility] [address], [place] [address]- 1374 Oct, [facility] [id number] [place] [address] 72980- 8718 Oct, PTSD (post-traumatic stress disorder) F43.10 ; Mood disorder F39 and Obsessive-compulsive disorder, unspecified type F42.9 [facility] [address], [place] [address]- 9781 Oct, PTSD (post-traumatic stress disorder) F43.10 and Bipolar I disorder with depression F31.9 [facility] [id number] [place] [address] 06248- 5114 Oct, PTSD (post-traumatic stress disorder) F43.10 and Bipolar I disorder with depression F31.9 [facility] [id number] [place] [address] 10530- 2226 Oct, PTSD (post-traumatic stress disorder) F43.10 ; Mood disorder F39 and Obsessive-compulsive disorder, unspecified type F42.9 [facility] [address], [place] [address]- 7103 Oct, [facility] [id number], [place] [address]- 2321 Oct, PTSD (post-traumatic stress disorder) F43.10 and Bipolar I disorder with depression F31.9 [facility] [id number], [place] [address]- 4416 Oct, PTSD (post-traumatic stress disorder) F43.10 ; Mood disorder F39 and Obsessive-compulsive disorder, unspecified type F42.9 [facility] [address], [place] [address]- 0510 Sep, PTSD (post-traumatic stress disorder) F43.10 and Bipolar I disorder with depression F31.9 [facility] [id number] [place] [address] 99191- 4041 Sep, PTSD (post-traumatic stress disorder) F43.10 ; Mood disorder F39 and Obsessive-compulsive disorder, unspecified type F42.9 [facility] [id number] [place] [address] 06406- 2551 Sep, PTSD (post-traumatic stress disorder) F43.10 and Bipolar I disorder with depression F31.9 [place] [facility] [id number] [place] [address] 87727- 4810 Sep, PTSD (post-traumatic stress disorder) F43.10 and Bipolar I disorder with depression F31.9 [facility] [id number] [place] [address] 79576- 7700 August, PTSD (post-traumatic stress disorder) F43.10 and Bipolar I disorder with depression F31.9 [facility] [id number] [place] [address] 09464 -9181 August, Pharyngitis due to other organism J02.8 [facility] [id number] [place] [address] 99829- 1280 August, PTSD (post-traumatic stress disorder) F43.10 ; Bipolar 1 disorder, mixed F31.60 and Other terminal worker (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.899 [facility] [id number] [place] [address] 56223- 8761 August, PTSD (post-traumatic stress disorder) F43.10 and Bipolar I disorder with depression F31.9 [facility] [id number] [place] [address] 44231- 2633 Jul, PTSD (post-traumatic stress disorder) F43.10 and Bipolar I disorder with depression F31.9 [place] [address] [address]- 6630 Jul, PTSD (post-traumatic stress disorder) F43.10 and Bipolar I disorder with depression F31.9 [facility] [id number] [place] [address] 09957- 0680 Jul, PTSD (post-traumatic stress disorder) F43.10 and Bipolar I disorder with depression F31.9 [facility] [id number] [place] [address] 39067- 0546 Jul, Other group home (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.899 [place] [id number] [place] [address] 89119- 9928 Jun, PTSD (post-traumatic stress disorder) F43.10 and Bipolar I disorder with depression F31.9 [facility] [facility] [id number] [place] [address] 80792- 1213 Jun, Bipolar 1 disorder, mixed F31.60 ; PTSD (post-traumatic stress disorder) F43.10 and Other group home (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.899 [place] [id number] [place] [address] 85137- 1157 Jun, PTSD (post-traumatic stress disorder) F43.10 and Depression , unspecified depression type F32.9 [facility] [id number] [place] [address] 87294- 3335 Jun, PTSD (post-traumatic stress disorder) F43.10 and Depression , unspecified depression type F32.9 [facility] [id number] [place] [address] 34082- 8019 Jun, PTSD (post-traumatic stress disorder) F43.10 and Depression , unspecified depression type F32.9 [facility] [id number] [place] [address] 31157 -4059 May, Fever, unspecified fever cause R50.9 and Gastroenteritis K52.9 [facility] [address] [place] [address]- 8563 13 Mar, 2016 Sprain of other ligament of right ankle, subsequent encounter S93.491D [facility] [id number] [place] [address] 50515- 3507 09 Mar, 2016 [facility] [id number] [place] [address] 76528 -9266 Feb, 2016 Scabies infestation B86 [facility] [id number] [place] [address] 07414- 9483 Feb, Dental caries K02.9 [place] [id number] [place] [address] 41519- 5529 Jan, [facility] [id number] [place] [address] 94380 -2837 Jan, Pharyngitis, unspecified etiology J02.9 [place] [id number] [place] [address] 92123- 6377 Jan, [place] [facility] [id number] [place] [address] 26773- 8710 Jan, Bipolar affective disorder, remission status unspecified F31.9 [place] [id number] [place] [address] 79528- 2547 Jan, Encounter for dental examination and cleaning without abnormal findings Z01.20 [facility] [facility] [id number] [place] [address] 25989- 2091 17 Jan, 2016 Bipolar affective disorder, remission status unspecified F31.9 [place] [id number] [place] [address] 04418- 2409 29 Dec, 2015 Bipolar affective disorder, remission status unspecified F31.9 and Depression, unspecified depression type F32.9 [place] [address], [place] [address]- 0703 12 Dec, 2015 Unspecified mood [affective] disorder F39 and Generalized anxiety disorder F41.1 [place] [address] 35721- 5055 Dec, Depression, unspecified depression type F32.9 [facility] [address] 56904- 8448 Nov, Dental caries K02.9 [facility] [address] 73737- 3790 Nov, Dental examination Z01.20 [facility] [address] 95151- 6758 Sep, Bipolar affective disorder, remission status unspecified F31.9 [place] [address] 03985- 3027 August, Tension headache G44.209 [facility] [address] 69787 -2850 Jul, [facility] [address] 70109 -5886 Jul, Upper respiratory infection J06.9 and Gastroenteritis K52.9 [place] [address] 34832- 6991 Jun, Bronchitis J40 [facility] [address] 81118 -7358 Feb, Thoracic back pain M54.6 and Left shoulder pain M25.512 [place] [address] 64363- 8448 Feb, [facility] [address] 39572- 5376 Jul, [facility] [address] 83389- 0921 Jul, [facility] [address] 30112- 2790 Apr, [facility] [address] 27030- 1139 Apr, [facility] [place] [facility] [address] [id number] [place] [address]- 5923 Apr, [facility] [place] [facility] [address] [id number] [place] [address]- 4669 Apr, [facility] [place] [facility] [address] [id number] [place] [address]- 1050 Mar, [facility] [place] [facility] [address] [id number] [place] [address]- 8429 Mar, [facility] [place] [facility] [address] [id number] [place] [address]- 5900 Mar, [facility] [place] [facility] [address] [id number] [place] [address]- 9710 Mar, [facility] [place] [facility] [address] [id number] [place] [address]- 2550 Feb, [facility] [place] [facility] [address] [id number] [place] [address]- 2309 Feb, [facility] [place] [facility] [address] [id number] [place] [address]- 5313 Feb, [facility] [place] [facility] [address] [id number] [place] [address]- 2474 Feb, [facility] [place] [facility] [address] [id number], [place] [address]- 4518 15 Jan, 2014 [facility] [place] [facility] [address] [id number], [place] [address]- 2859 15 Jan, 2014 [facility] [place] [facility] [address] [id number] [place] [address]- 8106 14 Jan, 2014 [facility] [place] [facility] [address] [id number], [place] [address]- 9753 14 Jan, 2014 [facility] [place] [facility] [address] [id number] [place] [address]- 5762 13 Jan, 2014 [facility] [place] [facility] [address] [id number] [place] [address]- 9536 Jan, [facility] [place] [facility] [address] [id number] [place] [address]- 3859 Dec, [facility] [place] [facility] [address] [id number] [place] [address]- 1846 Dec, [facility] [place] [facility] [address] [id number] [place] [address]- 7751 Nov, [facility] [place] [facility] [address] [id number] [place] [address]- 9962 Nov, [facility] [place] [facility] [address] [id number] [place] [address]- 2029 Nov, [facility] [place] [facility] [address] [id number] [place] [address]- 2182 Nov, [facility] [place] [facility] [address] [id number] [place] [address]- 9844 Nov, [facility] [place] [facility] [address] [id number] [place] [address]- 7429 Nov, [facility] [place] [facility] [address] [id number] [place] [address]- 0322 Nov, [facility] [place] [facility] [address] [id number] [place] [address]- 9165 Nov, [facility] [place] [facility] [address] [id number] [place] [address]- 6740 Nov, [facility] [place] [facility] [address] [id number] [place] [address]- 0448 Oct, [facility] [place] [facility] [address] [id number] [place] [address]- 2852 Oct, [facility] [place] [facility] [address] [id number] [place] [address]- 0103 Oct, [facility] [place] [facility] [address] [id number] [place] [address]- 9213 Oct, [facility] [place] [facility] [address] [id number] [place] [address]- 1558 Oct, 2013 [facility] [place] [facility] [address] [id number] [place] [address]- 5692 Oct, 2013 [facility] [place] [facility] [address] [id number] [place] [address]- 3487 Oct, 2013 [facility] [place] [facility] [address] [id number] [place] [address]- 2172 Oct, 2013 [facility] [place] [facility] [address] [id number] [place] [address]- 0722 Oct, 2013 [facility] [place] [facility] [address] [id number] [place] [address]- 2208 Oct, 2013 [facility] [place] [facility] [address] [id number] [place] [address]- 3069 Oct, 2013 [facility] [place] [facility] [address] [id number] [place] [address]- 7640 Oct, 2013 [facility] [place] [facility] [address] [id number] [place] [address]- 5481 Oct, 2013 [facility] [place] [facility] [address] [id number] [place] [address]- 1229 Oct, [facility] [place] [facility] [address] [id number] [place] [address]- 2548 Oct, [facility] [place] [facility] [address] [id number] [place] [address]- 8146 Oct, 2013 [facility] [place] [facility] [address] [id number] [place] [address]- 8150 Oct, [facility] [place] [facility] [address] [id number] [place] [address]- 3701 Oct, [facility] [place] [facility] [address] [id number] [place] [address]- 0075 Oct, 2013 [facility] [place] [facility] [address] [id number] [place] [address]- 9050 Sep, [facility] [place] [facility] [address] [id number] [place] [address]- 2366 Sep, [facility] [place] [facility] [address] [id number] [place] [address]- 0243 Sep, [facility] [place] [facility] [address] [id number] [place] [address]- 2925 Sep, [facility] [place] [facility] [address] [id number] [place] [address]- 3735 Feb, [facility] [place] [facility] [address] [id number] [place] [address]- 5899 Feb, [facility] [place] [facility] [address] [id number] [place] [address]- 7968 Dec, [facility] [place] [facility] [address] [id number] [place] [address]- 1162 Dec, [facility] [place] [facility] [address] [id number] [place] [address]- 4772 Nov, [facility] [place] [facility] [address] [id number] [place] [address]- 0517 Nov, [facility] [place] [facility] [address] [id number] [place] [address]- 7299 Nov, [facility] [place] [facility] [address] [id number] [place] [address]- 3865 Nov, [facility] [place] [facility] [address] [id number] [place] [address]- 4581 Nov, [facility] [place] [facility] [address] [id number] [place] [address] Nov, [facility] [place] [facility] [address] [id number] [place] [address] Oct, [facility] [place] [facility] [address] [id number] [place] [address] Apr, [facility] [place] [facility] [address] [id number] [place] [address] August, [facility] [place] [facility] [address] [id number] [place] [address] August, [facility] [place] [facility] [address] [id number] [place] August, [facility] [place] [facility] [address] [id number] [place] [address] Jul, [facility] [place] [facility] [address] [id number] [place] [address] Jun, [facility] [place] [facility] [address] [id number] [place] [address] Jun, [facility] [place] [facility] [address] [id number] [place] [address] Jun, [facility] [place] [facility] [address] [id number] [place] [address] Jun, [facility] [place] [facility] [address] [id number] [place] [address] Jun, [facility] [place] [facility] [address] [id number] [place] [address] Jun, [facility] [place] [facility] [address] [id number] [place] [address] May, [facility] [place] [facility] [address] [id number] [place] [address] May, [facility] [place] [facility] [address] [id number] [place] [address] May, [facility] [place] [facility] [address] [id number] [place] [address] May, [facility] [place] [facility] [address] [id number] [place] [address] May, [facility] [place] [facility] [address] [id number], [place] [address] May, 2011 [facility] [id number] [place] [address] Apr, [facility] [id number] [place] [address] Mar, [facility] [id number], [place] [address] Mar, [facility] [id number] [place] [address] Feb, [facility] [id number] [place] [address] Jan, [facility] [id number], [place] [address] Mar, [facility] [id number], [place] [address] Mar, [facility] [id number] [place] [address] Mar, [facility] [id number] [place] [address] Mar, [facility] [id number] [place] [address] Mar, [facility] [facility] [id number] [address] Feb, [facility] [id number], [place] [address] Feb, [facility] [id number], [place] [address] Nov, [facility] [id number], [place] [address] May, 2008 IMMUNIZATIONS No Known Immunizations SOCIAL HISTORY Never Assessed REASON FOR VISIT Follow-up PTSD/Bipolar Disorder PLAN OF CARE Activity Details Follow Up Next available Reason: Follow-up VITAL SIGNS MEDICATIONS Unknown Medications RESULTS No Results PROCEDURES Procedure Date Ordered Result Body Site Psychotherapy, patient &/family, 30 minutes, established patient Jan 21, 2017 INSTRUCTIONS MEDICATIONS ADMINISTERED No Known Medications MEDICAL (GENERAL) HISTORY Type Description Date Medical History HELP syndrome Medical History bi-polar Medical History hypertension Medical History hx of seizure x1, isolated Surgical History gallbladder 10/2013 Surgical History 03/2014 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
--- OUTSIDE RECORDS SUMMARY | 2017-12-25 20:18 | XMS REPORT ---
Author LEEANNA Thomas [facility] eClinicalWorks Address Unknown Phone Unavailable Care Team Providers Care Insurance Verification Clerk Name Role Phone LEEANNA JOSEPH CP Unavailable Allergies, Adverse Reactions, Alerts Substance Reaction Event Type Azithromycin hives Drug Allergy Problems Problem Type Condition Code Onset Dates Condition Status Problem Infections of genitourinary tract in , unspecified as to episode of care 646.60 Active Problem Mild hyperemesis gravidarum, unspecified as to episode of care 643.00 Active Problem examination or test, positive result V72.42 Active Problem Medial epicondylitis of elbow 726.31 Active Problem Lump or mass in breast 611.72 Active Problem Unspecified high-risk V23.9 Active Problem Galactorrhea not associated with childbirth 611.6 Active Problem Screening for malignant neoplasm of the cervix V76.2 Active Problem Nausea with vomiting 787.01 Active Problem Adjustment disorder with mixed anxiety and depressed mood 309.28 Active Problem Encounter for insertion of intrauterine contraceptive device V25.11 Active Problem Abdominal pain, unspecified site 789.00 Active Problem Incomplete spontaneous without mention of complication 634.91 Active Problem Rhesus isoimmunization affecting management of mother, 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 Active Problem DTAP TEST V06.1 Active Problem Supervision of other normal V22.1 Active Problem Screening examination for venereal disease V74.5 Active Problem Maternal mental disorders, complicating , childbirth, or the puerperium, unspecified as to episode of care 648.40 Active Problem Bipolar I disorder, most recent episode (or current) mixed, severe, without mention of psychotic behavior 296.63 Active Problem 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, 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 Problem Other general counseling and advice for contraceptive management V25.09 Active Problem Need for prophylactic vaccination and inoculation, Influenza V04.81 Active Problem Bipolar I disorder, most recent episode (or current) mixed, unspecified 296.60 Active Problem Screening for diabetes mellitus V77.1 Active Problem Screening for iron deficiency anemia V78.0 Active Medications Medication Code System Code Instructions Start Date End Date Status Dosage Doxycycline [facility] [address]-08 100 mg Orally 2 times a day August 03, 2015 August 13, 2015 1 Results No Known Results Summary Purpose eClinicalWorks Submission
--- OUTSIDE RECORDS SUMMARY | 2017-12-25 20:19 | XMS REPORT ---
Author Author [facility] Address [address] [place] [address] Care Team Providers Care Document Photographer Name Role Phone GRICELDA, SOUTH Unavailable PROBLEMS Type Condition ICD9-CM Code QJH76-IN Code Onset Dates Condition Status SNOMED Code Problem Amenorrhea N91.2 Active 15286415 Problem Mood disorder F39 Active 57234782 Problem PTSD (post-traumatic stress disorder) F43.10 Active 95416736 Problem Bipolar I disorder with depression F31.9 Active 72021782 Problem 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 Active 33799190 Problem Obsessive-compulsive disorder, unspecified type F42.9 Active 796038870 ALLERGIES Substance Reaction Event Type Date Status Azithromycin hives Drug Allergy Nov, Active ORAGEL Unknown Non Drug Allergy Nov, Active ENCOUNTERS Encounter Location Date Diagnosis [facility] [id number] [place] [address] 88739- 0351 Sep, [facility] [address] 28960- 7736 Sep, [facility] [id number] [place] [address] 45056- 9341 August, [facility] [id number] [place] [address] 03466- 4104 August, [facility] [id number] [place] [address] 69348- 0713 Jul, [facility] [address] 22281- 6127 Jul, PTSD (post-traumatic stress disorder) F43.10 and Bipolar I disorder with depression F31.9 [facility] [address] 14100- 2069 Jul, Pelvic pain R10.2 ; Amenorrhea N91.2 and BMI 50.0-59.9, adult Z68.43 [facility] [id number] [place] [address] 77304- 2161 26 Jun, 2017 BMI 50.0-59.9, adult Z68.43 ; Bipolar I disorder with depression F31.9 ; PTSD (post-traumatic stress disorder) F43.10 and 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 [facility] [id number] [place] [address] 23317 -7809 15 Jun, 2017 Other viral agents as the cause of diseases classified elsewhere B97.89 ; Other specified respiratory disorders J98.8 ; Bronchitis J40 and Cough R05 [facility] [id number] [place] [address] 63360- 6062 Jun, PTSD (post-traumatic stress disorder) F43.10 [facility] [id number] [place] [address] 05290- 5974 Jun, PTSD (post-traumatic stress disorder) F43.10 and Bipolar I disorder with depression F31.9 [facility] [address] 19135- 0131 13 May, 2017 PTSD (post-traumatic stress disorder) F43.10 and Bipolar I disorder with depression F31.9 [facility] [id number] [place] [address] 00066- 3998 12 May, 2017 [facility] [id number] [place] [address] 57922- 7468 07 May, 2017 PTSD (post-traumatic stress disorder) F43.10 and Bipolar I disorder with depression F31.9 [facility] [id number] [place] [address] 59601- 5135 Apr, PTSD (post-traumatic stress disorder) F43.10 and Bipolar I disorder with depression F31.9 [facility] [id number] [place] [address] 55358- 4848 Apr, PTSD (post-traumatic stress disorder) F43.10 and Bipolar I disorder with depression F31.9 [facility] [id number] [place] [id number] Mar, PTSD (post-traumatic stress disorder) F43.10 ; Obsessive- compulsive disorder, unspecified type F42.9 ; Bipolar I disorder with depression F31.9 [place] [facility] 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.899 [facility] [address] 60049- 5322 Mar, PTSD (post-traumatic stress disorder) F43.10 and Bipolar I disorder with depression F31.9 [facility] [address] 22686- 7955 Feb, PTSD (post-traumatic stress disorder) F43.10 and Bipolar I disorder with depression F31.9 [facility] [address] 19928- 7566 Feb, PTSD (post-traumatic stress disorder) F43.10 and Bipolar I disorder with depression F31.9 [facility] [id number] [place] [address] 39567 -1737 Jan, Strep pharyngitis J02.0 [facility] [id number] [place] [address] 84726- 6157 Jan, [facility] [id number] [place] [address] 57288- 3822 Jan, [facility] [id number] [place] [address] 73668- 6269 Jan, PTSD (post-traumatic stress disorder) F43.10 and Bipolar I disorder with depression F31.9 [facility] [id number] [place] [address] 02062- 6539 05 Jan, 2017 PTSD (post-traumatic stress disorder) F43.10 and Bipolar I disorder with depression F31.9 [facility] [address] [place] [address]- 5846 05 Jan, 2017 [place] [facility] 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.899 [facility] [address] [place] [address] 84060- 6607 02 Jan, 2017 PTSD (post-traumatic stress disorder) F43.10 ; Obsessive- compulsive disorder, unspecified type F42.9 ; Bipolar I disorder with depression F31.9 and 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.899 [facility] [address] [place] [address] 30250- 4050 27 Dec, 2016 Encounter for IUD removal Z30.432 and control counseling Z30.09 [facility] [address] [place] [address] 01740- 8792 25 Dec, 2016 PTSD (post-traumatic stress disorder) F43.10 ; Obsessive- compulsive disorder, unspecified type F42.9 and Bipolar I disorder with depression F31.9 [facility] [id number] [place] [address] 32696- 7153 Dec, PTSD (post-traumatic stress disorder) F43.10 and Bipolar I disorder with depression F31.9 [facility] [address] [place] [address] 92094- 0965 12 Dec, 2016 PTSD (post-traumatic stress disorder) F43.10 and Bipolar I disorder with depression F31.9 [facility] [address] [address]- 3154 11 Dec, 2016 Mood disorder F39 [facility] [address] [place] [address] 77745- 0019 08 Dec, 2016 PTSD (post-traumatic stress disorder) F43.10 ; Mood disorder F39 and Obsessive-compulsive disorder, unspecified type F42.9 [facility] [address] [address]- 1211 07 Dec, 2016 PTSD (post-traumatic stress disorder) F43.10 and Bipolar I disorder with depression F31.9 [facility] [address] [address] -5796 05 Dec, 2016 Adverse drug reaction, initial encounter T88.7XXA [facility] [id number] [address]- 7996 Dec, [facility] [id number] [address]- 1338 Nov, PTSD (post-traumatic stress disorder) F43.10 and Bipolar I disorder with depression F31.9 [facility] [id number] [address]- 7572 Nov, PTSD (post-traumatic stress disorder) F43.10 ; Mood disorder F39 and Obsessive-compulsive disorder, unspecified type F42.9 [facility] [address] [address]- 2833 Nov, PTSD (post-traumatic stress disorder) F43.10 and Bipolar I disorder with depression F31.9 [facility] [id number] [address]- 7534 Nov, PTSD (post-traumatic stress disorder) F43.10 and Bipolar I disorder with depression F31.9 [facility] [address] [address] Nov, [facility] [address] [address]- 7547 Nov, PTSD (post-traumatic stress disorder) F43.10 and Bipolar I disorder with depression F31.9 [facility] [address] [address]- 3120 Nov, PTSD (post-traumatic stress disorder) F43.10 and Bipolar I disorder with depression F31.9 [facility] [id number] [address]- 0174 Oct, [facility] [id number] [address]- 3393 Oct, PTSD (post-traumatic stress disorder) F43.10 ; Mood disorder F39 and Obsessive-compulsive disorder, unspecified type F42.9 [facility] [address] [place] [address] 10101- 3469 Oct, PTSD (post-traumatic stress disorder) F43.10 and Bipolar I disorder with depression F31.9 [facility] [address] [address]- 5736 Oct, PTSD (post-traumatic stress disorder) F43.10 and Bipolar I disorder with depression F31.9 [facility] [id number] [place] [address] 00554- 0594 Oct, PTSD (post-traumatic stress disorder) F43.10 ; Mood disorder F39 and Obsessive-compulsive disorder, unspecified type F42.9 [facility] [id number] [place] [address] 17540- 5196 Oct, [facility] [id number] [place] [address] 26547- 6057 Oct, PTSD (post-traumatic stress disorder) F43.10 and Bipolar I disorder with depression F31.9 [facility] [id number] [place] [address] 45066- 3396 Oct, PTSD (post-traumatic stress disorder) F43.10 ; Mood disorder F39 and Obsessive-compulsive disorder, unspecified type F42.9 [facility] [address] [place] [address] 52424- 8732 Sep, PTSD (post-traumatic stress disorder) F43.10 and Bipolar I disorder with depression F31.9 [facility] [id number] [place] [address] 11447- 7196 Sep, PTSD (post-traumatic stress disorder) F43.10 ; Mood disorder F39 and Obsessive-compulsive disorder, unspecified type F42.9 [facility] [id number] [address]- 8923 Sep, PTSD (post-traumatic stress disorder) F43.10 and Bipolar I disorder with depression F31.9 [facility] [address] [address]- 7906 Sep, PTSD (post-traumatic stress disorder) F43.10 and Bipolar I disorder with depression F31.9 [facility] [address] [place] [address] 24630- 5184 August, PTSD (post-traumatic stress disorder) F43.10 and Bipolar I disorder with depression F31.9 [facility] [address] [address] -1498 August, Pharyngitis due to other organism J02.8 [facility] [id number] [place] [address] 13903- 4876 August, PTSD (post-traumatic stress disorder) F43.10 ; Bipolar 1 disorder, mixed F31.60 and 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.899 [facility] [id number] [place] [address] 29951- 0946 August, PTSD (post-traumatic stress disorder) F43.10 and Bipolar I disorder with depression F31.9 [facility] [address] [place] [address] 49133- 2695 Jul, PTSD (post-traumatic stress disorder) F43.10 and Bipolar I disorder with depression F31.9 [facility] [id number] [place] [address] 47084- 3663 Jul, PTSD (post-traumatic stress disorder) F43.10 and Bipolar I disorder with depression F31.9 [facility] [address] [place] [address] 01233- 1233 Jul, PTSD (post-traumatic stress disorder) F43.10 and Bipolar I disorder with depression F31.9 [facility] [address] [address]- 1457 Jul, 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.899 [facility] [id number] [place] [address] 92528- 5487 Jun, PTSD (post-traumatic stress disorder) F43.10 and Bipolar I disorder with depression F31.9 [facility] [id number] [place] [address] 98645- 2654 Jun, Bipolar 1 disorder, mixed F31.60 ; PTSD (post-traumatic stress disorder) F43.10 [place] [facility] 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.899 [facility] [address] 45718- 3095 Jun, PTSD (post-traumatic stress disorder) F43.10 and Depression , unspecified depression type F32.9 [facility] [address] 52936- 8305 Jun, PTSD (post-traumatic stress disorder) F43.10 and Depression , unspecified depression type F32.9 [facility] [address] 29473- 3675 Jun, PTSD (post-traumatic stress disorder) F43.10 and Depression , unspecified depression type F32.9 [facility] [id number] [place] [address] 46017 -7342 May, Fever, unspecified fever cause R50.9 and Gastroenteritis K52.9 [facility] [id number] [place] [address] 54173- 6903 Mar, Sprain of other ligament of right ankle, subsequent encounter S93.491D [facility] [id number] [place] [address] 59389- 5935 Mar, [facility] [address] 99921 -7413 Feb, Scabies infestation B86 [facility] [id number] [place] [address] 23623- 5908 08 Feb, 2016 Dental caries K02.9 [facility] [address] [address]- 6510 Jan, [facility] [id number] [place] [address] 54699 -3487 Jan, Pharyngitis, unspecified etiology J02.9 [facility] [address] [place] [address] 38092- 0509 Jan, [facility] [id number] [place] [address] 66414- 6904 Jan, Bipolar affective disorder, remission status unspecified F31.9 [facility] [id number] [place] [address] 66740- 1746 Jan, Encounter for dental examination and cleaning without abnormal findings Z01.20 [facility] [id number] [place] [address] 61924- 5725 Jan, Bipolar affective disorder, remission status unspecified F31.9 [facility] [id number] [place] [address] 33424- 1100 Dec, Bipolar affective disorder, remission status unspecified F31.9 and Depression, unspecified depression type F32.9 [facility] [id number] [place] [address] 12400- 0186 Dec, Unspecified mood [affective] disorder F39 and Generalized anxiety disorder F41.1 [facility] [id number] [place] [address] 78752- 1546 Dec, Depression, unspecified depression type F32.9 [facility] [address] [place] [address] 90140- 0027 Nov, Dental caries K02.9 [facility] [id number] [place] [address] 71982- 3953 Nov, Dental examination Z01.20 [facility] [id number] [place] [address] 19365- 7647 Sep, Bipolar affective disorder, remission status unspecified F31.9 [facility] [id number] [place] [address] 59638- 8138 August, Tension headache G44.209 [facility] [address] 82363 -9795 Jul, [facility] [id number] [place] [address] 85383 -0494 Jul, Upper respiratory infection J06.9 and Gastroenteritis K52.9 [facility] [address] 25683- 1538 Jun, Bronchitis J40 [facility] [address] 81329 -0538 Feb, Thoracic back pain M54.6 and Left shoulder pain M25.512 [facility] [address] 63362- 1826 Feb, [facility] [address] 73619- 9565 Jul, [facility] [id number] [place] [address] 21910- 6675 Jul, [facility] [id number] [place] [address] 88843- 1943 Apr, [facility] [id number] [place] [address] 80263- 7713 Apr, [facility] [id number] [place] [address] 96236- 5229 Apr, [facility] [id number] [place] [address] 50114- 4364 Apr, [facility] [id number] [place] [address] 14939- 9085 Mar, [facility] [id number] [place] [address] 59643- 0997 Mar, [facility] [address] [place] [address]- 4947 Mar, [facility] [place] [facility] [address] [id number] [place] [address]- 7324 Mar, [facility] [place] [facility] [address] [id number] [place]- 8765 Feb, [facility] [place] [facility] [address] [id number] [place] [address]- 3543 Feb, [facility] [place] [facility] [address] [id number] [place] 7211 Feb, [facility] [place] [facility] [address] [id number] [place] 4911 Feb, [facility] [place] [facility] [address] [id number] [place] [address]- 4255 Jan, [facility] [place] [facility] [address] [id number] [place] [address]- 4200 15 Jan, 2014 [facility] [place] [facility] [address] [id number] [place] [address]- 9624 14 Jan, 2014 [facility] [place] [facility] [address] [id number] [place] [address]- 8669 14 Jan, 2014 [facility] [place] [facility] [address] [facility] [id number] [place] [address]- 5239 Jan, [facility] [place] [facility] [address] [id number] [place] [address]- 0881 Jan, [facility] [place] [facility] [address] [id number] [place] [address]- 1843 Dec, [facility] [place] [facility] [address] [id number] [place] [address]- 5680 Dec, [facility] [place] [facility] [address] [id number] [place] [address]- 7191 Nov, [facility] [place] [facility] [address] [id number] [place]- 5822 Nov, [facility] [place] [facility] [address] [id number] [place] [address]- 1458 Nov, [facility] [place] [facility] [address] [id number] [place] [address]- 7162 Nov, [facility] [place] [facility] [address] [id number] [place] [address]- 7091 Nov, [facility] [place] [facility] [address] [id number] [place] [address]- 2216 Nov, [facility] [place] [facility] [address] [id number] [place] [address]- 9903 Nov, [facility] [place] [facility] [address] [id number] [place] [address]- 1402 Nov, [facility] [place] [facility] [address] [id number] [place] [address]- 7288 Nov, [facility] [place] [facility] [address] [id number] [place] [address]- 1278 Oct, [facility] [place] [facility] [address] [id number] [place] [address]- 2979 Oct, [facility] [place] [facility] [address] [id number] [place] [address]- 4342 Oct, [facility] [place] [facility] [address] [id number] [place] [address]- 8456 Oct, [facility] [place] [facility] [address] [id number] [place] [address]- 5975 Oct, [facility] [place] [facility] [address] [id number] [place] [address]- 2951 Oct, [facility] [place] [facility] [address] [id number] [place] [address]- 5193 Oct, [facility] [place] [facility] [address] [id number] [place] [address]- 2865 Oct, [facility] [place] [facility] [address] [id number] [place] [address]- 0345 Oct, 2013 [facility] [place] [facility] [address] [id number] [place] [address]- 2125 Oct, 2013 [facility] [place] [facility] [address] [id number] [place] [address]- 6084 Oct, 2013 [facility] [place] [facility] [address] [id number] [place] [address]- 7544 Oct, 2013 [facility] [place] [facility] [address] [id number] [place] [address]- 6072 Oct, 2013 [facility] [place] [facility] [address] [id number] [place] [address]- 3115 Oct, [facility] [place] [facility] [address] [id number] [place] [address]- 4288 Oct, [facility] [place] [facility] [address] [id number] [place] [address]- 3314 Oct, [facility] [place] [facility] [address] [id number] [place] [address]- 1386 Oct, [facility] [place] [facility] [address] [id number] [place] [address]- 4150 Oct, [facility] [place] [facility] [address] [id number] [place] [address]- 0242 Oct, [facility] [place] [facility] [address] [id number] [place] [address]- 6919 Sep, [facility] [place] [facility] [address] [id number] [place] [address]- 2635 Sep, [facility] [place] [facility] [address] [id number] [place] [address]- 3911 Sep, [facility] [place] [facility] [address] [id number] [place] [address]- 5178 Sep, [facility] [place] [facility] [address] [id number] [place] [address]- 8768 Feb, [facility] [place] [facility] [address] [id number] [place] [address]- 5218 Feb, [facility] [address] [id number] [place] [address]- 7626 Dec, [facility] [address] [id number] [place] [address]- 5170 Dec, [facility] [address] [id number] [place] [address]- 4153 Nov, [facility] [address] [id number] [place] [address]- 3939 Nov, [facility] [address] [id number] [place] [address]- 2030 Nov, [facility] [address] [id number] [place] [address] Nov, [facility] [address] [id number] [place] [address] Nov, [facility] [address] [id number] [place] [address] Nov, [facility] [address] [id number] [place] [address] Oct, [facility] [address] [id number] [place] [address] Apr, [facility] [address] [id number] [place] [address] August, [facility] [address] [id number] [place] [address] August, [facility] [address] [id number] [place] [address] August, [facility] [address] [id number] [place] [address] Jul, [facility] [address] [id number] [place] [address] Jun, [facility] [address] [id number] [place] [address] 27 Jun, 2011 [facility] [place] [facility] [address] [id number] [place] [address] 14 Jun, 2011 [facility] [place] [facility] [address] [id number] [place] [address] 14 Jun, 2011 [facility] [place] [facility] [address] [id number] [place] [address] Jun, [facility] [place] [facility] [address] [id number] [place] [address] Jun, [facility] [place] [facility] [address] [id number] [place] [address] May, [facility] [place] [facility] [address] [facility] [id number] [place] [address] 16 May, 2011 [facility] [place] [facility] [address] [id number] [place] [address] May, [facility] [place] [facility] [address] [id number] [place] [address] 07 May, 2011 [facility] [place] [facility] [address] [facility] [id number] [place] [address] 06 May, 2011 [facility] [place] [facility] [address] [id number] [place] [address] May, [facility] [place] [facility] [address] [id number] [place] [address] Apr, [facility] [place] [facility] [address] [id number] [place] [address] Mar, [facility] [place] [facility] [address] [id number] [place] [address] Mar, [facility] [place] [facility] [address] [facility] [id number] [place] [address] Feb, [facility] [place] [facility] [id number] [address] Jan, [facility] [id number] [address] Mar, [facility] [id number] [address] Mar, [facility] [id number] [address] Mar, [facility] [id number] [address] Mar, [facility] [id number] [address] Mar, [facility] [id number] [address] Feb, [facility] [id number] [address] Feb, [facility] [id number] [address] Nov, [facility] [id number] [address] May, IMMUNIZATIONS No Known Immunizations SOCIAL HISTORY Never Assessed REASON FOR VISIT f/u. Markus PEARCE PLAN OF CARE Activity Details Follow Up 2 Weeks Reason: f/u VITAL SIGNS Height 64 in 2016-12-09 Weight 290.1 lbs 2016-12-09 Heart Rate 90 bpm 2016-12-09 Respiratory Rate 20 2016-12-09 BMI 49.79 kg/m2 2016-12-09 Blood pressure systolic 138 mmHg 2016-12-09 Blood pressure diastolic 88 mmHg 2016-12-09 MEDICATIONS Medication Instructions Dosage Frequency Start Date End Date Duration Status Klonopin 0.5 MG Orally Twice a day as needed 1 tablet Nov, Active Celexa 20 mg Orally Once a day 1 tablet 24h 30 day(s) Active Lamictal 150 MG Orally Once a day 1 tablet 24h 30 day(s) Active Mirena 20 MCG/24HR Active Latuda 60 mg Orally Once a day at supper with food 1 tablet Nov, 30 day(s) Active RESULTS No Results PROCEDURES No Known procedures INSTRUCTIONS MEDICATIONS ADMINISTERED No Known Medications MEDICAL (GENERAL) HISTORY Type Description Date Medical History HELP syndrome Medical History bi-polar Medical History hypertension Medical History hx of seizure x1, isolated Surgical History gallbladder 10/2013 Surgical History 03/2014 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
--- OUTSIDE RECORDS SUMMARY | 2017-12-25 20:19 | XMS REPORT ---
Author Author [facility] Address [address] [place] [address] Care Team Providers Care Ping Pong Table Assembler Name Role Phone [place] Unavailable PROBLEMS Type Condition ICD9-CM Code FFG40-UN Code Onset Dates Condition Status SNOMED Code Problem Amenorrhea N91.2 Active 73525792 Problem Mood disorder F39 Active 16897752 Problem PTSD (post-traumatic stress disorder) F43.10 Active 05175192 Problem Bipolar I disorder with depression F31.9 Active 28752775 Problem 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 Active 66379794 Problem Obsessive-compulsive disorder, unspecified type F42.9 Active [id number] ALLERGIES No Information ENCOUNTERS Encounter Location Date Diagnosis [place] [id number] [place] [address] 38844- 7541 Sep, [place] [address] 93255- [address]696 August, [facility], [place] [id number] [place] [address] 38831- 6748 Jul, [place] [id number] [place] [address] 98399- 9726 Jul, [facility] [place] [address] 58981- 1570 Jul, Pelvic pain R10.2 ; Amenorrhea N91.2 and BMI 50.0-59.9, adult Z68.43 [facility], [place] [address] 25570- 5562 Jun, BMI 50.0-59.9, adult Z68.43 ; Bipolar I disorder with depression F31.9 ; PTSD (post-traumatic stress disorder) F43.10 and 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 [facility] [id number] [place] [address] 03233 -5689 15 Jun, 2017 Other viral agents as the cause of diseases classified elsewhere B97.89 ; Other specified respiratory disorders J98.8 ; Bronchitis J40 and Cough R05 [facility] [place] [id number] [place] [address] 95786- 4185 13 Jun, 2017 PTSD (post-traumatic stress disorder) F43.10 [facility], [place] [id number] [place] [address] 92085- 0125 13 Jun, 2017 PTSD (post-traumatic stress disorder) F43.10 and Bipolar I disorder with depression F31.9 [facility] [place] [id number] [place] [address] 28711- 1599 13 May, 2017 PTSD (post-traumatic stress disorder) F43.10 and Bipolar I disorder with depression F31.9 [facility] [place] [id number] [place] [address] 83541- 3223 12 May, 2017 [facility] [place] [id number] [place] [address] 00455- 6405 07 May, 2017 PTSD (post-traumatic stress disorder) F43.10 and Bipolar I disorder with depression F31.9 [facility], [place] [id number] [place] [address] 20463- 8060 Apr, PTSD (post-traumatic stress disorder) F43.10 and Bipolar I disorder with depression F31.9 [facility], [place] [id number] [place] [address] 41698- 3520 Apr, PTSD (post-traumatic stress disorder) F43.10 and Bipolar I disorder with depression F31.9 [facility], [place] [id number] [place] [address] 49880- 5166 Mar, PTSD (post-traumatic stress disorder) F43.10 ; Obsessive- compulsive disorder, unspecified type F42.9 ; Bipolar I disorder with depression F31.9 and Other terminal gauger (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.899 [facility], [place] [address] [address] 2045 Mar, PTSD (post-traumatic stress disorder) F43.10 and Bipolar I disorder with depression F31.9 [facility], [place] [address] [address] 2546 Feb, PTSD (post-traumatic stress disorder) F43.10 and Bipolar I disorder with depression F31.9 [facility], [place] [id number] [place] [address] 98201 2546 Feb, PTSD (post-traumatic stress disorder) F43.10 and Bipolar I disorder with depression F31.9 [facility] [id number] [place] [address] 30549 -0256 Jan, Strep pharyngitis J02.0 [facility], [place] [id number] [place] [address] 65008- 4296 Jan, [facility], [place] [id number] [place] [address] 39851- 4556 Jan, [facility], [place] [id number] [place] [address] 48540- 4921 Jan, PTSD (post-traumatic stress disorder) F43.10 and Bipolar I disorder with depression F31.9 [facility], [place] [address] [address]- 8476 Jan, PTSD (post-traumatic stress disorder) F43.10 and Bipolar I disorder with depression F31.9 [facility], [place] [address] [address]- 7036 Jan, Other terminal gauger (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.899 [facility], [place] [id number] [place] [address] 65155- 1466 Jan, PTSD (post-traumatic stress disorder) F43.10 ; Obsessive- compulsive disorder, unspecified type F42.9 ; Bipolar I disorder with depression F31.9 and Other penitentiary (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.899 [facility], [place] [id number] [place] [address] 38982- 8625 27 Dec, 2016 Encounter for IUD removal Z30.432 and control counseling Z30.09 [facility], [place] [id number] [place] [address] 25632- 7069 Dec, PTSD (post-traumatic stress disorder) F43.10 ; Obsessive- compulsive disorder, unspecified type F42.9 and Bipolar I disorder with depression F31.9 [facility], [place] [id number] [place] [address] 30288- 9446 Dec, PTSD (post-traumatic stress disorder) F43.10 and Bipolar I disorder with depression F31.9 [facility], [place] [id number] [place] [address] 27367- 9482 12 Dec, 2016 PTSD (post-traumatic stress disorder) F43.10 and Bipolar I disorder with depression F31.9 [facility], [place] [id number] [place] [address] 71666- 8990 11 Dec, 2016 Mood disorder F39 [facility], [place] [id number] [place] [address] 89424- 3717 08 Dec, 2016 PTSD (post-traumatic stress disorder) F43.10 ; Mood disorder F39 and Obsessive-compulsive disorder, unspecified type F42.9 [facility], [place] [id number] [place] [address] 49371- 1413 07 Dec, 2016 PTSD (post-traumatic stress disorder) F43.10 and Bipolar I disorder with depression F31.9 [facility] [id number] [place] [address] 16055 -0053 Dec, Adverse drug reaction, initial encounter T88.7XXA [facility], [place] [id number] [place] [address] 58764- 3628 Dec, [facility], [place] [id number] [place] [address] 25802- 7409 Nov, PTSD (post-traumatic stress disorder) F43.10 and Bipolar I disorder with depression F31.9 [facility], [place] [address] [facility] [id number] [address] Nov, PTSD (post-traumatic stress disorder) F43.10 ; Mood disorder F39 and Obsessive-compulsive disorder, unspecified type F42.9 [facility], [place] [id number] [address]- 8416 Nov, PTSD (post-traumatic stress disorder) F43.10 and Bipolar I disorder with depression F31.9 [facility], [place] [address] [facility] [id number] [address] 2546 Nov, PTSD (post-traumatic stress disorder) F43.10 and Bipolar I disorder with depression F31.9 [facility] [address] [facility] [id number] [address] Nov, [facility], [place] [id number] [place] [address] 91662- 1337 Nov, PTSD (post-traumatic stress disorder) F43.10 and Bipolar I disorder with depression F31.9 [facility], [place] [id number] [place] [address] 88985- 1496 Nov, PTSD (post-traumatic stress disorder) F43.10 and Bipolar I disorder with depression F31.9 [facility], [place] [id number] [address]- 7606 Oct, [facility], [place] [id number] [place] [address] 72925 2546 Oct, PTSD (post-traumatic stress disorder) F43.10 ; Mood disorder F39 and Obsessive-compulsive disorder, unspecified type F42.9 [facility], [place] [id number] [place] [address] 53104- 0916 Oct, PTSD (post-traumatic stress disorder) F43.10 and Bipolar I disorder with depression F31.9 [facility], [place] [id number] [address]- 9846 Oct, PTSD (post-traumatic stress disorder) F43.10 and Bipolar I disorder with depression F31.9 [facility], [place] [address] [address]- 2665 Oct, PTSD (post-traumatic stress disorder) F43.10 ; Mood disorder F39 and Obsessive-compulsive disorder, unspecified type F42.9 [facility], [place] [address] [address]- 9280 Oct, [facility], [place] [id number] [place] [address] 41746- 8648 Oct, PTSD (post-traumatic stress disorder) F43.10 and Bipolar I disorder with depression F31.9 [facility], [place] [address] [address]- 3106 Oct, PTSD (post-traumatic stress disorder) F43.10 ; Mood disorder F39 and Obsessive-compulsive disorder, unspecified type F42.9 [facility], [place] [address] [address]- 1752 Sep, PTSD (post-traumatic stress disorder) F43.10 and Bipolar I disorder with depression F31.9 [facility], [place] [address] [address]- 7746 Sep, PTSD (post-traumatic stress disorder) F43.10 ; Mood disorder F39 and Obsessive-compulsive disorder, unspecified type F42.9 [facility], [place] [address] [address]- 3277 Sep, PTSD (post-traumatic stress disorder) F43.10 and Bipolar I disorder with depression F31.9 [facility], [place] [address] [address]- 6776 Sep, PTSD (post-traumatic stress disorder) F43.10 and Bipolar I disorder with depression F31.9 [facility], [place] [address] [address]- 1528 August, PTSD (post-traumatic stress disorder) F43.10 and Bipolar I disorder with depression F31.9 [facility] [address] [address] August, Pharyngitis due to other organism J02.8 [facility], [place] [id number] [address]- 6636 August, PTSD (post-traumatic stress disorder) F43.10 ; Bipolar 1 disorder, mixed F31.60 and Other terminal gauger (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.899 [facility], [place] [address] [address]- 1426 August, PTSD (post-traumatic stress disorder) F43.10 and Bipolar I disorder with depression F31.9 [facility], [place] [address] [address]- 0865 Jul, PTSD (post-traumatic stress disorder) F43.10 and Bipolar I disorder with depression F31.9 [facility], [place] [address] [address]- 5566 Jul, PTSD (post-traumatic stress disorder) F43.10 and Bipolar I disorder with depression F31.9 [facility], [place] [id number] [place] [address] 91374- 9202 Jul, PTSD (post-traumatic stress disorder) F43.10 and Bipolar I disorder with depression F31.9 [facility], [place] [address] [address]- 3903 Jul, Other terminal gauger (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.899 [facility], [place] [address] [address]- 9326 Jun, PTSD (post-traumatic stress disorder) F43.10 and Bipolar I disorder with depression F31.9 [facility], [place] [address] [address]- 7854 Jun, Bipolar 1 disorder, mixed F31.60 ; PTSD (post-traumatic stress disorder) F43.10 and Other terminal gauger (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.899 [place] [id number] [place] [address] 34015- 5027 Jun, PTSD (post-traumatic stress disorder) F43.10 and Depression , unspecified depression type F32.9 [place] [id number] [place] [address] 48200- 6928 Jun, PTSD (post-traumatic stress disorder) F43.10 and Depression , unspecified depression type F32.9 [place] [address] 41304- 0549 Jun, PTSD (post-traumatic stress disorder) F43.10 and Depression , unspecified depression type F32.9 [facility] [address] 54685 -4109 May, Fever, unspecified fever cause R50.9 and Gastroenteritis K52.9 [place] [address] 01018- 0087 Mar, Sprain of other ligament of right ankle, subsequent encounter S93.491D [place] [address] 69034- 0886 Mar, [facility] [place] [address] 50470 -2587 Feb, Scabies infestation B86 [place] [address] 95270- 9270 08 Feb, 2016 Dental caries K02.9 [place] [address] 76824- 9890 Jan, [facility] [address] 24803 -7494 Jan, Pharyngitis, unspecified etiology J02.9 [place] [address] 58025- 5750 Jan, [place] [address] [place] [address]- 7010 Jan, Bipolar affective disorder, remission status unspecified F31.9 [place] [id number] [place] [address] 54196- 7584 Jan, Encounter for dental examination and cleaning without abnormal findings Z01.20 [facility], [place] [id number] [place] [address] 43460- 9093 Jan, Bipolar affective disorder, remission status unspecified F31.9 [place] [id number] [place] [address] 57693- 9787 29 Dec, 2015 Bipolar affective disorder, remission status unspecified F31.9 and Depression, unspecified depression type F32.9 [place] [id number] [place] [address] 92180- 3255 Dec, Unspecified mood [affective] disorder F39 and Generalized anxiety disorder F41.1 [place] [id number] [place] [address] 63534- 8142 08 Dec, 2015 Depression, unspecified depression type F32.9 [place] [id number] [place] [address] 52125- 8945 Nov, Dental caries K02.9 [place] [id number] [place] [address] 95086- 6567 Nov, Dental examination Z01.20 [place] [id number] [place] [address] 63758- 5933 24 Sep, 2015 Bipolar affective disorder, remission status unspecified F31.9 [place] [id number] [place] [address] 27211- 4531 August, Tension headache G44.209 [facility] [id number] [place] [address] 20141 -2831 Jul, [facility] [id number] [place] [address] 49283 -6825 Jul, Upper respiratory infection J06.9 and Gastroenteritis K52.9 [facility] [place] [address] [address]- 9111 Jun, Bronchitis J40 [facility] [id number] [place] [address] 35979 -6764 Feb, Thoracic back pain M54.6 and Left shoulder pain M25.512 [facility] [place] [id number] [place] [address] 21315- 3214 Feb, [facility] [place] [id number] [place] [address] 44715- 8636 Jul, [facility] [place] [id number] [place] [address] 51361- 4497 Jul, [facility] [place] [id number] [place] [address] 45616- 0520 Apr, [facility] [place] [id number] [place] [address] 24138- 4752 Apr, [facility] [place] [id number] [place] [address] 27826- 3294 Apr, [facility] [place] [id number] [place] [address] 65246- 3496 Apr, [facility] [place] [id number] [place] [address] 43841- 8004 Mar, [facility] [place] [id number] [place] [address] 89735- 2504 Mar, [facility] [place] [id number] [place] [address] 78254- 6899 Mar, [facility] [place] [id number] [place] [address] 78580- 1540 Mar, [facility] [place] [id number] [address]- 3449 Feb, [facility] [place] [id number] [place] [address] 22428- 6003 Feb, [facility] [place] [facility] [address] [id number] [place] [address]- 0281 Feb, [facility] [place] [facility] [address] [id number] [place] [address]- 5559 Feb, [facility] [place] [facility] [address] [id number] [place] [address]- 2662 15 Jan, 2014 [facility] [place] [facility] [address] [id number] [place] [address]- 2818 15 Jan, 2014 [facility] [place] [facility] [address] [id number] [place] [address]- 0193 Jan, [facility] [place] [facility] [address] [id number] [place] [address]- 0536 Jan, [facility] [place] [facility] [address] [id number] [place] [address]- 7904 Jan, [facility] [place] [facility] [address] [id number] [place] [address]- 0942 Jan, [facility] [place] [facility] [address] [id number] [place] [address]- 7471 Dec, [facility] [place] [facility] [address] [id number] [place] [address]- 4663 Dec, [facility] [place] [facility] [address] [id number] [place] [address]- 6083 Nov, [facility] [place] [facility] [address] [id number] [address]- 9489 Nov, [facility] [place] [facility] [address] [id number] [place] [address]- 2076 Nov, [facility] [place] [facility] [address] [id number] [place] [address]- 3282 Nov, [facility] [place] [facility] [address] [id number] [place] [address]- 3947 Nov, [facility] [place] [facility] [address] [id number] [place] [address]- 2411 Nov, [facility] [place] [facility] [address] [id number] [place] [address]- 4938 Nov, [facility] [place] [facility] [address] [id number] [place] [address]- 4358 Nov, [facility] [place] [facility] [address] [id number] [place] [address]- 9513 Nov, [facility] [place] [facility] [address] [id number] [place] [address]- 1354 Oct, [facility] [place] [facility] [address] [id number] [place] [address]- 0749 Oct, [facility] [place] [facility] [address] [id number] [place] [address]- 1911 Oct, [facility] [place] [facility] [address] [id number] [place] [address]- 3268 Oct, [facility] [place] [facility] [address] [id number] [place] [address]- 5222 Oct, [facility] [place] [facility] [address] [id number] [place] [address]- 0498 Oct, [facility] [place] [facility] [address] [id number] [place] [address]- 1386 Oct, [facility] [place] [facility] [address] [id number] [place] [address]- 2038 Oct, [facility] [place] [facility] [address] [id number] [place] [address]- 6276 Oct, [facility] [place] [facility] [address] [id number] [place] [address]- 1392 Oct, [facility] [place] [facility] [address] [id number] [place] [address]- 3264 Oct, [facility] [place] [facility] [address] [id number] [place] [address]- 3672 Oct, [facility] [place] [facility] [address] [id number] [place] [address]- 3091 Oct, 2013 [facility] [place] [facility] [address] [id number] [place] [address]- 3742 Oct, 2013 [facility] [place] [facility] [address] [id number] [place] [address]- 2541 Oct, 2013 [facility] [place] [facility] [address] [id number] [place] [address] Oct, 2013 [facility] [place] [facility] [address] [id number] [place] [address] Oct, 2013 [facility] [place] [facility] [address] [id number] [place] [address] Oct, 2013 [facility] [place] [facility] [address] [id number] [place] [address] Oct, 2013 [facility] [place] [facility] [address] [id number] [place] [address] Sep, [facility] [place] [facility] [address] [id number] [place] [address] Sep, [facility] [place] [facility] [address] [id number] [place] [address] Sep, [facility] [place] [facility] [address] [id number] [place] [address] Sep, [facility] [place] [facility] [address] [id number] [place] [address] Feb, [facility] [place] [facility] [address] [id number] [place] [address] Feb, [facility] [place] [facility] [address] [id number] [place] [address] Dec, [facility] [place] [facility] [address] [id number] [place] [address] Dec, [facility] [place] [facility] [address] [id number] [place] [address] Nov, [facility] [address] [id number] [place] [address] Nov, [facility] [place] [facility] [address] [id number] [place] [address] Nov, [facility] [place] [facility] [address] [id number] [place] [address] Nov, [facility] [place] [facility] [address] [id number] [place] [address] Nov, [facility] [place] [facility] [address] [id number] [place] [address] Nov, [facility] [place] [facility] [address] [id number] [place] [address] Oct, [facility] [place] [facility] [address] [id number] [place] [address] Apr, [facility] [place] [facility] [address] [id number] [place] [address] August, [facility] [place] [facility] [address] [id number] [place] [address] August, [facility] [place] [facility] [address] [id number] [place] [address] August, [facility] [place] [facility] [address] [id number] [place] [address] Jul, [facility] [place] [facility] [address] [id number] [place] [address] 28 Jun, 2011 [facility] [place] [facility] [address] [id number] [place] [address] 27 Jun, 2011 [facility] [place] [facility] [address] [id number] [place] [address] 14 Jun, 2011 [facility] [place] [facility] [address] [id number] [place] [address] 14 Jun, 2011 [facility] [facility] [address] [id number] [place] [address] Jun, [facility] [address] [id number] [place] [address] Jun, [facility] [place] [facility] [address] [id number] [place] [address] May, 2011 [facility] [address] [id number] [place] [address] 16 May, 2011 [facility] [place] [facility] [address] [id number] [place] [address] 09 May, 2011 [facility] [address] [id number] [place] [address], [place] [address] 07 May, 2011 [facility] [place] [facility] [address] [id number] [place] [address] 06 May, 2011 [facility] [place] [facility] [id number] [place] [address] 06 May, 2011 [facility] [address] [id number] [place] [address] Apr, [facility] [place] [facility] [id number] [place] [address] 07 Mar, 2011 [facility] [address] [id number] [place] [address] 06 Mar, 2011 [facility] [place] [facility] [address] [id number] [place] [address] Feb, [facility] [place] [facility] [address] [id number] [place] [address] 13 Jan, 2011 [facility] [place] [facility] [address] [id number] [place] [address] 31 Mar, 2009 [facility] [place] [facility] [address] [id number] [place] [address] 15 Mar, 2009 [facility] [place] [facility] [address] [id number] [place] [address] Mar, [facility] [place] [id number] [address] Mar, [facility] [place] [id number] [address] Mar, [facility] [place] [id number] [address] Feb, [facility] [place] [id number] [address] Feb, [facility] [place] [id number] [address] Nov, [facility] [place] [id number] [address] May, IMMUNIZATIONS No Known Immunizations SOCIAL HISTORY Never Assessed REASON FOR VISIT Disability Release PLAN OF CARE VITAL SIGNS MEDICATIONS Unknown Medications RESULTS No Results PROCEDURES No Known procedures INSTRUCTIONS MEDICATIONS ADMINISTERED No Known Medications MEDICAL (GENERAL) HISTORY Type Description Date Medical History HELP syndrome Medical History bi-polar Medical History hypertension Medical History hx of seizure x1, isolated Surgical History gallbladder 10/2013 Surgical History 03/2014 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
--- OUTSIDE RECORDS SUMMARY | 2017-12-25 20:19 | XMS REPORT ---
Author Author OLY DURBIN Organization [facility] Address [address] [place] [address] Care Team Providers Care Greige [employer] Marker Name Role Phone OLY DURBIN Unavailable PROBLEMS Type Condition ICD9-CM Code [id number] Code Onset Dates Condition Status SNOMED Code Problem Mood disorder F39 Active 31519156 Problem 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 Active 31234560 Problem PTSD (post-traumatic stress disorder) F43.10 Active 04541361 Problem Obsessive-compulsive disorder, unspecified type F42.9 Active 205730024 Problem Bipolar I disorder with depression F31.9 Active 44797294 ALLERGIES No Information SOCIAL HISTORY Never Assessed PLAN OF CARE Activity Details Follow Up 2 Weeks Reason: Follow-up VITAL SIGNS MEDICATIONS Unknown Medications RESULTS No Results PROCEDURES Procedure Date Ordered Result Body Site Psychotherapy, patient &/family, 45 minutes, established patient August 29, 2016 IMMUNIZATIONS No Known Immunizations MEDICAL (GENERAL) HISTORY Type Description Date Medical History HELP syndrome Medical History bi-polar Medical History hypertension Medical History hx of seizure x1, isolated Surgical History gallbladder 10/2013 Surgical History 03/2014 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
--- OUTSIDE RECORDS SUMMARY | 2017-12-25 20:20 | XMS REPORT ---
Author CALLY Koroma [employer] Address Unknown Phone Unavailable Care Team Providers Care Superintendent [employer] Name Role Phone CALLY FOX CP Unavailable Allergies, Adverse Reactions, Alerts Substance Reaction Event Type Azithromycin hives Drug Allergy Problems Problem Type Condition Code Onset Dates Condition Status Assessment Dental examination Z01.20 Active Problem Bipolar affective disorder, remission status unspecified F31.9 Active Medications Medication Code System Code Instructions Start Date End Date Status Dosage Mirena [facility] [address]-27 20 MCG/24HR Intrauterine not defined Alliance [facility] [address]-41 5-325 MG Orally every 6 hrs Dec 08, 2015 1 tablet as needed Celexa [facility] [address]-26 20 mg Orally Once a day September 08, 2015 1 tablet Amoxicillin [facility] [address]-31 500 MG Orally 4 Times a Day Dec 04, 2015 Dec 11, 2015 1 capsule Procedures Procedure Coding System Code Date INTRAORL-PERIAPICAL 1 FILM 68267 CPT-4 D0220 Dec 04, 2015 Billing Notes on claim CPT-4 EC109 Dec 04, 2015 LTD ORAL EVALUATION - PROBLEM FOCUS CPT-4 D0140 Dec 04, 2015 Vital Signs Date/Time: Dec 04, 2015 Blood Pressure Diastolic 104 mmHg Blood Pressure Systolic 153 mmHg Height 64 in Results No Known Results Summary Purpose [employer]ClinicalWorks Submission
--- OUTSIDE RECORDS SUMMARY | 2017-12-25 20:20 | XMS REPORT ---
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 Phone [place] Unavailable PROBLEMS Type Condition ICD9-CM Code RTB52-SZ Code Onset Dates Condition Status SNOMED Code Problem Mood disorder F39 Active 48649277 Problem 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 Active 00881505 Problem PTSD (post-traumatic stress disorder) F43.10 Active 75359181 Problem Obsessive-compulsive disorder, unspecified type F42.9 Active 496700575 Problem Bipolar I disorder with depression F31.9 Active 14184383 ALLERGIES No Information ENCOUNTERS Encounter Location Date Diagnosis [facility] [address] [address] August, [facility] [id number] [place] [address]53- 9178 Jul, [facility] [address] [address] Jul, [facility] [id number] [place] [address] 34902- 4554 Jun, BMI 50.0-59.9, adult Z68.43 ; Bipolar I disorder with depression F31.9 ; PTSD (post-traumatic stress disorder) F43.10 and 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 [facility] [address] [address] Jun, Other viral agents as the cause of diseases classified elsewhere B97.89 ; Other specified respiratory disorders J98.8 ; Bronchitis J40 and Cough R05 [facility] [id number] [place] [address] 18420- 3634 Jun, PTSD (post-traumatic stress disorder) F43.10 [facility] [address] [address] 13 Jun, 2017 PTSD (post-traumatic stress disorder) F43.10 and Bipolar I disorder with depression F31.9 [facility] [address], [place] [address] 13 May, 2017 PTSD (post-traumatic stress disorder) F43.10 and Bipolar I disorder with depression F31.9 [facility] [address], [place] [address] 12 May, 2017 [facility] [id number] [place] [address] 25359- 4524 May, PTSD (post-traumatic stress disorder) F43.10 and Bipolar I disorder with depression F31.9 [facility] [id number] [place] [address] 54499- 4692 Apr, PTSD (post-traumatic stress disorder) F43.10 and Bipolar I disorder with depression F31.9 [facility] [address], [place] [address] Apr, PTSD (post-traumatic stress disorder) F43.10 and Bipolar I disorder with depression F31.9 [facility] [address], [place] [address] Mar, PTSD (post-traumatic stress disorder) F43.10 ; Obsessive- compulsive disorder, unspecified type F42.9 ; Bipolar I disorder with depression F31.9 and 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 [facility] [id number] [place] [address] 65869- 4236 Mar, PTSD (post-traumatic stress disorder) F43.10 and Bipolar I disorder with depression F31.9 [facility] [address], [place] [address] 77[address] Feb, PTSD (post-traumatic stress disorder) F43.10 and Bipolar I disorder with depression F31.9 [facility] [address], [place] [address] 29[address] Feb, PTSD (post-traumatic stress disorder) F43.10 and Bipolar I disorder with depression F31.9 [facility] [address], [place] [address] Jan, Strep pharyngitis J02.0 [facility] [id number] [place] [address] 51519- 8256 Jan, [facility] [id number] [place] [address] 02341- 9828 Jan, [facility] [id number] [place] [address] 81233- 8621 Jan, PTSD (post-traumatic stress disorder) F43.10 and Bipolar I disorder with depression F31.9 [facility] [id number] [place] [address] 52033- 3297 Jan, PTSD (post-traumatic stress disorder) F43.10 and Bipolar I disorder with depression F31.9 [facility] [id number] [place] [address] 85534- 5064 Jan, Other snf (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.899 [facility] [id number] [place] [address] 81438- 9374 Jan, PTSD (post-traumatic stress disorder) F43.10 ; Obsessive- compulsive disorder, unspecified type F42.9 ; Bipolar I disorder with depression F31.9 and Other snf (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.899 [facility] [id number] [place] [address] 09258- 4323 Dec, Encounter for IUD removal Z30.432 and control counseling Z30.09 [facility] [address], [place] [address]- 25[address] Dec, PTSD (post-traumatic stress disorder) F43.10 ; Obsessive- compulsive disorder, unspecified type F42.9 and Bipolar I disorder with depression F31.9 [facility] [id number], [place] [address] 7[address] 25 Dec, 2016 PTSD (post-traumatic stress disorder) F43.10 and Bipolar I disorder with depression F31.9 [facility] [id number], [place] [address]- 5566 12 Dec, 2016 PTSD (post-traumatic stress disorder) F43.10 and Bipolar I disorder with depression F31.9 [facility] [id number] [place] [address] 73096- 3946 11 Dec, 2016 Mood disorder F39 [facility] [id number] [place] [address] 98583- 0661 08 Dec, 2016 PTSD (post-traumatic stress disorder) F43.10 ; Mood disorder F39 and Obsessive-compulsive disorder, unspecified type F42.9 [facility] [id number] [place] [address] 48925- 4721 Dec, PTSD (post-traumatic stress disorder) F43.10 and Bipolar I disorder with depression F31.9 [facility] [id number] [place] [address] 98589 -6620 Dec, Adverse drug reaction, initial encounter T88.7XXA [facility] [id number] [place] [address] 30548- 2066 Dec, [facility] [id number] [place] [address] 38168- 5918 Nov, PTSD (post-traumatic stress disorder) F43.10 and Bipolar I disorder with depression F31.9 [facility] [id number] [place] [address] 03658- 0477 Nov, PTSD (post-traumatic stress disorder) F43.10 ; Mood disorder F39 and Obsessive-compulsive disorder, unspecified type F42.9 [facility] [id number] [place] [address] 91707- 1524 Nov, PTSD (post-traumatic stress disorder) F43.10 and Bipolar I disorder with depression F31.9 [facility] [address] [address]- 4411 Nov, PTSD (post-traumatic stress disorder) F43.10 and Bipolar I disorder with depression F31.9 [facility] [id number], [place] [address] Nov, [facility] [id number] [place] [address] 84613- 6014 Nov, PTSD (post-traumatic stress disorder) F43.10 and Bipolar I disorder with depression F31.9 [facility] [id number] [place] [address] 64742- 5487 Nov, PTSD (post-traumatic stress disorder) F43.10 and Bipolar I disorder with depression F31.9 [facility] [id number] [place] [address] 21945- 5989 Oct, [facility] [id number] [place] [address] 42693- 2956 Oct, PTSD (post-traumatic stress disorder) F43.10 ; Mood disorder F39 and Obsessive-compulsive disorder, unspecified type F42.9 [facility] [address] [address]- 0545 Oct, PTSD (post-traumatic stress disorder) F43.10 and Bipolar I disorder with depression F31.9 [facility] [id number] [address]- 3742 Oct, PTSD (post-traumatic stress disorder) F43.10 and Bipolar I disorder with depression F31.9 [facility] [id number], [place] [address]- 7056 Oct, PTSD (post-traumatic stress disorder) F43.10 ; Mood disorder F39 and Obsessive-compulsive disorder, unspecified type F42.9 [facility] [address], [place] [address]- 7780 Oct, [facility] [address], [place] [address]- 9809 Oct, PTSD (post-traumatic stress disorder) F43.10 and Bipolar I disorder with depression F31.9 [facility] [address], [place] [address]- 9561 Oct, PTSD (post-traumatic stress disorder) F43.10 ; Mood disorder F39 and Obsessive-compulsive disorder, unspecified type F42.9 [place] [id number], [place] [address]- 3980 Sep, PTSD (post-traumatic stress disorder) F43.10 and Bipolar I disorder with depression F31.9 [facility] [address], [place] [address]- 1792 Sep, PTSD (post-traumatic stress disorder) F43.10 ; Mood disorder F39 and Obsessive-compulsive disorder, unspecified type F42.9 [facility] [address], [place] [address]- 6045 Sep, PTSD (post-traumatic stress disorder) F43.10 and Bipolar I disorder with depression F31.9 [place] [address], [place] [address]- 7201 Sep, PTSD (post-traumatic stress disorder) F43.10 and Bipolar I disorder with depression F31.9 [facility] [address], [place] [address]- 5402 August, PTSD (post-traumatic stress disorder) F43.10 and Bipolar I disorder with depression F31.9 [facility] [id number] [place] [address] 00979 -2723 August, Pharyngitis due to other organism J02.8 [facility] [address], [place] [address]- 4297 August, PTSD (post-traumatic stress disorder) F43.10 ; Bipolar 1 disorder, mixed F31.60 and 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 [facility] [id number], [place] [address]- 8046 August, PTSD (post-traumatic stress disorder) F43.10 and Bipolar I disorder with depression F31.9 [facility] [id number], [place] [address] 2546 Jul, PTSD (post-traumatic stress disorder) F43.10 and Bipolar I disorder with depression F31.9 [facility] [id number] [place] [address] 62853- 5316 Jul, PTSD (post-traumatic stress disorder) F43.10 and Bipolar I disorder with depression F31.9 [facility] [id number] [place] [address] 89121- 7026 Jul, PTSD (post-traumatic stress disorder) F43.10 and Bipolar I disorder with depression F31.9 [facility] [id number] [place] [address] 59140- 5646 Jul, 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 [facility] [id number] [place] [address] 28111- 1446 Jun, PTSD (post-traumatic stress disorder) F43.10 and Bipolar I disorder with depression F31.9 [facility] [id number], [place] [address] 2546 Jun, Bipolar 1 disorder, mixed F31.60 ; PTSD (post-traumatic stress disorder) F43.10 and Other snf (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.899 [facility] [id number], [place] [address]- 8336 Jun, PTSD (post-traumatic stress disorder) F43.10 and Depression , unspecified depression type F32.9 [facility] [id number], [place] [address]- 2846 Jun, PTSD (post-traumatic stress disorder) F43.10 and Depression , unspecified depression type F32.9 [place] [id number] [place] [address] 75873- 6453 Jun, PTSD (post-traumatic stress disorder) F43.10 and Depression , unspecified depression type F32.9 [facility] [address] [address] May, Fever, unspecified fever cause R50.9 and Gastroenteritis K52.9 [place] [address] 57081- 5161 Mar, Sprain of other ligament of right ankle, subsequent encounter S93.491D [place] [address] 29517- 0471 Mar, [facility] [place] [address] [address]63 Feb, Scabies infestation B86 [place] [address] 82564- 2630 Feb, Dental caries K02.9 [place] [address] 10655- 9315 Jan, [facility] [place] [facility] [id number] [place] [address] 40012 -4386 Jan, Pharyngitis, unspecified etiology J02.9 [place] [id number] [place] [address] 85685- 3111 Jan, [place] [id number] [place] [address] 53751- 0318 Jan, Bipolar affective disorder, remission status unspecified F31.9 [place] [id number] [place] [address] 36997- 4349 Jan, Encounter for dental examination and cleaning without abnormal findings Z01.20 [place] [address] 70910- 9544 Jan, Bipolar affective disorder, remission status unspecified F31.9 [facility] [id number] [place] [address] 27366- 8595 29 Dec, 2015 Bipolar affective disorder, remission status unspecified F31.9 and Depression, unspecified depression type F32.9 [place] [id number] [place] [address] 54335- 2918 Dec, Unspecified mood [affective] disorder F39 and Generalized anxiety disorder F41.1 [place] [id number] [place] [address] 33656- 3287 08 Dec, 2015 Depression, unspecified depression type F32.9 [place] [id number] [place] [address] 26358- 4107 Nov, Dental caries K02.9 [place] [id number] [place] [address] 75586- 5122 Nov, Dental examination Z01.20 [place] [address] 33645- 6042 Sep, Bipolar affective disorder, remission status unspecified F31.9 [place] [id number] [place] [address] 87892- 0399 August, Tension headache G44.209 [facility] [id number] [place] [address] 39216 -5949 Jul, [facility] [id number] [place] [address] 69072 -0538 Jul, Upper respiratory infection J06.9 and Gastroenteritis K52.9 [place] [id number] [place] [address] 82884- 3959 Jun, Bronchitis J40 [facility] [id number] [place] [address] 34072 -8520 05 Feb, 2015 Thoracic back pain M54.6 and Left shoulder pain M25.512 [place] [address] 27023- 2266 05 Feb, 2015 [facility] [place] [facility] [address] [id number] [place] [address]- 1333 14 Jul, 2014 [facility] [place] [facility] [address] [id number] [place] [address]- 9471 Jul, [facility] [place] [facility] [address] [facility] [id number] [place] [address]- 8001 Apr, [facility] [place] [facility] [address] [id number] [place] [address]- 0061 Apr, [facility] [place] [facility] [address] [id number] [place] [address]- 2751 Apr, [facility] [place] [facility] [address] [id number] [place] [address]- 3260 Apr, [facility] [place] [facility] [address] [facility] [id number] [place] [address]- 0907 Mar, [facility] [place] [facility] [address] [facility] [id number] [place] [address]- 5524 Mar, [facility] [place] [facility] [address] [facility] [id number] [place] [address]- 0339 Mar, [facility] [place] [facility] [address] [facility] [id number] [place] [address]- 9901 Mar, [facility] [place] [facility] [address] [facility] [id number] [address]- 0894 Feb, [facility] [place] [facility] [address] [id number], [place] [address]- 7548 Feb, [facility] [place] [facility] [address] [id number] [place] [address]- 7427 Feb, [facility] [place] [facility] [address] [facility] [id number] [place] [address]- 8148 Feb, [facility] [place] [facility] [address] [facility] [id number] [place] [address]- 6850 Jan, [facility] [place] [facility] [address] [id number] [place] [address]- 9611 15 Jan, 2014 [facility] [place] [facility] [address] [id number] [place] [address]- 0235 14 Jan, 2014 [facility] [place] [facility] [address] [id number] [place] [address]- 2127 14 Jan, 2014 [facility] [place] [facility] [address] [id number] [place] [address]- 0974 13 Jan, 2014 [facility] [place] [facility] [address] [id number] [place] [address]- 9368 Jan, [facility] [place] [facility] [address] [id number] [place] [address]- 1281 15 Dec, 2013 [facility] [place] [facility] [address] [id number] [place] [address]- 6228 Dec, [facility] [place] [facility] [address] [id number] [place] [address]- 9743 Nov, [facility] [place] [facility] [address] [id number] [place] [address]- 1409 Nov, [facility] [place] [facility] [address] [id number] [place] [address]- 7216 Nov, [facility] [place] [facility] [address] [id number] [place] [address]- 1225 Nov, [facility] [place] [facility] [address] [id number] [place] [address]- 1435 Nov, [facility] [place] [facility] [address] [id number] [place] [address]- 7564 Nov, [facility] [place] [facility] [address] [id number] [place] [address]- 0647 Nov, [facility] [place] [facility] [address] [id number] [place] [address]- 4533 Nov, [facility] [place] [facility] [address] [id number] [place] [address]- 5998 Nov, [facility] [place] [facility] [address] [id number] [place] [address]- 1996 Oct, [facility] [place] [facility] [address] [id number] [place] [address]- 5689 Oct, [facility] [place] [facility] [address] [id number] [place] [address]- 3230 Oct, [facility] [place] [facility] [address] [id number] [place] [address]- 0186 Oct, [facility] [place] [facility] [address] [id number] [place] [address]- 4985 Oct, [facility] [place] [facility] [address] [id number] [place] [address]- 3256 Oct, [facility] [place] [facility] [address] [id number] [place] [address]- 0405 Oct, [facility] [place] [facility] [address] [id number] [place] [address]- 9978 Oct, [facility] [place] [facility] [address] [id number] [place] [address]- 1260 Oct, [facility] [place] [facility] [address] [id number] [place] [address]- 6797 Oct, [facility] [place] [facility] [address] [id number] [place] [address]- 6302 Oct, [facility] [place] [facility] [address] [id number] [place] [address]- 5302 Oct, [facility] [place] [facility] [address] [id number] [place] [address]- 6216 Oct, [facility] [place] [facility] [address] [id number] [place] [address]- 9049 Oct, [facility] [place] [facility] [address] [id number] [place] [address]- 9258 Oct, [facility] [place] [facility] [address] [id number] [place] [address]- 9582 Oct, [facility] [place] [facility] [address] [id number] [place] [address]- 6373 Oct, [facility] [place] [facility] [address] [id number] [place] 9331 Oct, [facility] [place] [facility] [address] [id number] [place] [address]- 9488 Oct, [facility] [place] [facility] [address] [id number] [place] [address]- 9008 Sep, [facility] [place] [facility] [address] [id number] [place] [address]- 5232 Sep, [facility] [place] [facility] [address] [id number] [place] [address]- 6217 Sep, [facility] [place] [facility] [address] [id number] [place] [address]- 4339 Sep, [facility] [place] [facility] [address] [id number] [place] [address]- 7105 Feb, [facility] [place] [facility] [address] [id number] [place] [address]- 5621 Feb, [facility] [place] [facility] [address] [id number] [place] [address]- 2998 Dec, [facility] [place] [facility] [address] [id number] [place] [address]- 9552 Dec, [facility] [place] [facility] [address] [id number] [place] [address]- 0065 Nov, [facility] [place] [facility] [address] [id number] [place] [address]- 2503 Nov, [facility] [place] [facility] [address] [id number] [place] [address]- 1760 Nov, [facility] [place] [facility] [address] [id number] [place] [address]- 3375 Nov, [facility] [place] [facility] [address] [id number] [place] [address]- 6488 Nov, [facility] [address] [id number] [place] [address]- 6695 Nov, [facility] [address] [id number] [place] [address]- 4253 Oct, [facility] [address] [id number] [place] [address] Apr, [facility] [address] [id number] [place] [address] August, [facility] [address] [id number] [place] [address] August, [facility] [address] [id number] [place] [address] August, [facility] [address] [id number] [place] [address] Jul, [facility] [address] [id number] [place] [address] Jun, [facility] [address] [id number] [place] [address] Jun, [facility] [address] [id number] [place] [address] Jun, [facility] [facility] [address] [id number] [place] [address] Jun, [facility] [address] [id number] [place] [address] Jun, [facility] [place] [facility] [address] [id number] [place] [address] Jun, [facility] [facility] [address] [id number] [place] [address] May[facility] [facility] [address] [id number] [place] [address] 16 May, 2011 [facility] [address] [id number] [place] [address] 09 May, 2011 [facility] [address] [id number] [place] [address] 07 May, 2011 [facility] [address] [facility] [id number] [place] [address] 06 May, 2011 [facility] [address] [id number] [place] [address] 06 May, 2011 [facility] [address] [facility] [id number] [place] [address] Apr, [facility] [address] [id number] [place] [address] 07 Mar, 2011 [facility] [address] [facility] [id number] [place] [address] 06 Mar, 2011 [facility] [address] [facility] [id number], [place] [address] 02 Feb, 2011 [facility] [address] [facility] [id number] [place] [address] 13 Jan, 2011 [facility] [address] [facility] [id number] [place] [address] 31 Mar, 2009 [facility] [address] [facility] [id number] [place] [address] 15 Mar, 2009 [facility] [place] [facility] [address] [id number], [place] [address] 10 Mar, 2009 [facility] [address] [facility] [id number] [place] [address] 10 Mar, 2009 [facility] [address] [facility] [id number], [place] [address] 02 Mar, 2009 [facility] [address] [facility] [id number], [place] [address] 16 Feb, 2009 [facility] [address] [facility] [id number] [place] [address] Feb, [facility] [address] [facility] [id number], [place] [address] Nov, [facility] [address] [facility] [id number] [place] [id number] May, IMMUNIZATIONS No Known Immunizations SOCIAL HISTORY Never Assessed REASON FOR VISIT Insurance forms PLAN OF CARE VITAL SIGNS MEDICATIONS Unknown Medications RESULTS No Results PROCEDURES No Known procedures INSTRUCTIONS MEDICATIONS ADMINISTERED No Known Medications MEDICAL (GENERAL) HISTORY Type Description Date Medical History HELP syndrome Medical History bi-polar Medical History hypertension Medical History hx of seizure x1, isolated Surgical History gallbladder 10/2013 Surgical History 03/2014 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
--- OUTSIDE RECORDS SUMMARY | 2017-12-25 20:20 | XMS REPORT ---
Author Author [facility] [place] Address [address] [place] [address] Care Team Providers Care Composition Molder Name Role Phone Mark MADISONYEN Unavailable PROBLEMS Type Condition ICD9-CM Code KGS83-FT Code Onset Dates Condition Status SNOMED Code Problem Mood disorder F39 Active 35404963 Problem 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 Active 92597088 Problem PTSD (post-traumatic stress disorder) F43.10 Active 82320525 Problem Obsessive-compulsive disorder, unspecified type F42.9 Active 104148389 Problem Bipolar I disorder with depression F31.9 Active 53665051 ALLERGIES Substance Reaction Event Type Date Status Azithromycin hives Drug Allergy Oct, Active ORAGEL Unknown Non Drug Allergy Oct, Active ENCOUNTERS Encounter Location Date Diagnosis [facility] [id number] [place] [address] 93157- 4952 August, [facility] [id number] [place] [address] 08368- 7506 Jul, [facility] [id number] [place] [address] 72834- 6093 Jul, [facility] [id number] [place] [address] 69076- 3165 Jun, BMI 50.0-59.9, adult Z68.43 ; Bipolar I disorder with depression F31.9 ; PTSD (post-traumatic stress disorder) F43.10 and 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 [facility] [id number] [place] [address] 88531 -6341 Jun, Other viral agents as the cause of diseases classified elsewhere B97.89 ; Other specified respiratory disorders J98.8 ; Bronchitis J40 and Cough R05 [facility] [address] [address] 13 Jun, 2017 PTSD (post-traumatic stress disorder) F43.10 [place] [address] [address] 6662 Jun, PTSD (post-traumatic stress disorder) F43.10 and Bipolar I disorder with depression F31.9 [place] [id number] [place] [address] 50387- 4596 13 May, 2017 PTSD (post-traumatic stress disorder) F43.10 and Bipolar I disorder with depression F31.9 [place] [id number] [place] [address] 33243- 1222 12 May, 2017 [place] [id number] [place] [address] 95540- 5734 07 May, 2017 PTSD (post-traumatic stress disorder) F43.10 and Bipolar I disorder with depression F31.9 [place] [id number] [place] [address] 84980- 5238 Apr, PTSD (post-traumatic stress disorder) F43.10 and Bipolar I disorder with depression F31.9 [place] [id number] [place] [address] 06322- 7043 Apr, PTSD (post-traumatic stress disorder) F43.10 and Bipolar I disorder with depression F31.9 [place] [address] [address] 9959 Mar, PTSD (post-traumatic stress disorder) F43.10 ; Obsessive- compulsive disorder, unspecified type F42.9 ; Bipolar I disorder with depression F31.9 and Other halfway (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.899 [place] [id number] [place] [address] 09865- 2653 Mar, PTSD (post-traumatic stress disorder) F43.10 and Bipolar I disorder with depression F31.9 [place] [id number] [place] [address] 02405- 6800 Feb, PTSD (post-traumatic stress disorder) F43.10 and Bipolar I disorder with depression F31.9 [place] [id number] [place] [address] 70189- 5118 Feb, PTSD (post-traumatic stress disorder) F43.10 and Bipolar I disorder with depression F31.9 [facility] [id number] [place] [address] 30497 -2981 Jan, Strep pharyngitis J02.0 [facility] [id number] [place] [address] 27876- 3599 Jan, [place] [address] 53042- 6426 Jan, [place] [id number] [place] [address] 32920- 4699 Jan, PTSD (post-traumatic stress disorder) F43.10 and Bipolar I disorder with depression F31.9 [facility] [id number] [place] [address] 94651- 5424 Jan, PTSD (post-traumatic stress disorder) F43.10 and Bipolar I disorder with depression F31.9 [facility] [id number] [place] [address] 94985- 9905 Jan, Other halfway (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.899 [place] [id number] [place] [address] 52120- 0417 Jan, PTSD (post-traumatic stress disorder) F43.10 ; Obsessive- compulsive disorder, unspecified type F42.9 ; Bipolar I disorder with depression F31.9 and Other technician terminal and repeater (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.899 [place] [id number] [place] [address] 35667- 2958 Dec, Encounter for IUD removal Z30.432 and control counseling Z30.09 [place] [id number] [place] [address] 19914- 4916 Dec, PTSD (post-traumatic stress disorder) F43.10 ; Obsessive- compulsive disorder, unspecified type F42.9 and Bipolar I disorder with depression F31.9 [facility] [id number] [place] [address] 75863- 5346 Dec, PTSD (post-traumatic stress disorder) F43.10 and Bipolar I disorder with depression F31.9 [facility] [id number] [place] [address] 56824- 0711 Dec, PTSD (post-traumatic stress disorder) F43.10 and Bipolar I disorder with depression F31.9 [facility] [id number] [place] [address] 54562- 6067 Dec, Mood disorder F39 [facility] [place] [id number] [place] [address] 44733- 3840 Dec, PTSD (post-traumatic stress disorder) F43.10 ; Mood disorder F39 and Obsessive-compulsive disorder, unspecified type F42.9 [facility] [id number] [place] [address] 55086- 2657 Dec, PTSD (post-traumatic stress disorder) F43.10 and Bipolar I disorder with depression F31.9 [facility] [id number] [place] [address] 37131 -4340 Dec, Adverse drug reaction, initial encounter T88.7XXA [facility] [id number] [place] [address] 88477- 0268 Dec, [facility] [place] [id number] [place] [address] 23177- 5176 Nov, PTSD (post-traumatic stress disorder) F43.10 and Bipolar I disorder with depression F31.9 [facility] [id number] [place] [address] 99058- 7171 Nov, PTSD (post-traumatic stress disorder) F43.10 ; Mood disorder F39 and Obsessive-compulsive disorder, unspecified type F42.9 [facility] [address], [place] [address]- 7302 Nov, PTSD (post-traumatic stress disorder) F43.10 and Bipolar I disorder with depression F31.9 [facility] [place] [id number] [address]- 7206 Nov, PTSD (post-traumatic stress disorder) F43.10 and Bipolar I disorder with depression F31.9 [facility] [id number] [address]1289 Nov, [facility] [id number] [place] [address] 16992- 6379 Nov, PTSD (post-traumatic stress disorder) F43.10 and Bipolar I disorder with depression F31.9 [facility] [place] [address] [address]- 3450 Nov, PTSD (post-traumatic stress disorder) F43.10 and Bipolar I disorder with depression F31.9 [facility] [place] [address], [place] [address]- 2335 Oct, [facility] [id number] [place] [address] 85318- 7267 Oct, PTSD (post-traumatic stress disorder) F43.10 ; Mood disorder F39 and Obsessive-compulsive disorder, unspecified type F42.9 [facility] [address] [address]- 6432 Oct, PTSD (post-traumatic stress disorder) F43.10 and Bipolar I disorder with depression F31.9 [facility] [place] [id number] [address]- 4087 Oct, PTSD (post-traumatic stress disorder) F43.10 and Bipolar I disorder with depression F31.9 [facility] [place] [id number] [address]- 2249 Oct, PTSD (post-traumatic stress disorder) F43.10 ; Mood disorder F39 and Obsessive-compulsive disorder, unspecified type F42.9 [facility] [address], [place] [address]- 3244 Oct, [facility] [place] [id number] [place] [address] 78466- 0486 Oct, PTSD (post-traumatic stress disorder) F43.10 and Bipolar I disorder with depression F31.9 [facility] [id number] [place] [address] 15403- 9308 Oct, PTSD (post-traumatic stress disorder) F43.10 ; Mood disorder F39 and Obsessive-compulsive disorder, unspecified type F42.9 [facility] [id number] [place] [address] 78192- 7008 Sep, PTSD (post-traumatic stress disorder) F43.10 and Bipolar I disorder with depression F31.9 [facility] [id number] [place] [address] 35183- 9511 Sep, PTSD (post-traumatic stress disorder) F43.10 ; Mood disorder F39 and Obsessive-compulsive disorder, unspecified type F42.9 [facility] [place] [id number] [place] [address] 11729- 4264 Sep, PTSD (post-traumatic stress disorder) F43.10 and Bipolar I disorder with depression F31.9 [facility] [place] [address], [place] [address]- 7425 Sep, PTSD (post-traumatic stress disorder) F43.10 and Bipolar I disorder with depression F31.9 [facility] [place] [address], [place] [address]- 2182 August, PTSD (post-traumatic stress disorder) F43.10 and Bipolar I disorder with depression F31.9 [facility] [address], [place] [address] -[address]69 August, Pharyngitis due to other organism J02.8 [facility] [id number] [place] [address] 86852- 3871 August, PTSD (post-traumatic stress disorder) F43.10 ; Bipolar 1 disorder, mixed F31.60 and Other halfway (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.899 [facility] [id number] [place] [address] 01604- 3313 August, PTSD (post-traumatic stress disorder) F43.10 and Bipolar I disorder with depression F31.9 [facility] [id number] [place] [address] 65073- 6713 Jul, PTSD (post-traumatic stress disorder) F43.10 and Bipolar I disorder with depression F31.9 [facility] [id number] [place] [address] 78683- 2612 Jul, PTSD (post-traumatic stress disorder) F43.10 and Bipolar I disorder with depression F31.9 [facility] [id number] [place] [address] 08969- 1954 Jul, PTSD (post-traumatic stress disorder) F43.10 and Bipolar I disorder with depression F31.9 [facility] [id number] [place] [address] 68597- 1625 Jul, Other halfway (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.899 [facility] [id number] [place] [address] 75986- 6514 Jun, PTSD (post-traumatic stress disorder) F43.10 and Bipolar I disorder with depression F31.9 [facility] [id number] [place] [address] 09795- 1745 Jun, Bipolar 1 disorder, mixed F31.60 ; PTSD (post-traumatic stress disorder) F43.10 and Other halfway (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.899 [facility] [id number] [place] [address] 26726- 6670 Jun, PTSD (post-traumatic stress disorder) F43.10 and Depression , unspecified depression type F32.9 [facility] [id number] [place] [address] 10740- 1229 Jun, PTSD (post-traumatic stress disorder) F43.10 and Depression , unspecified depression type F32.9 [place] [id number] [place] [address]- 4347 Jun, PTSD (post-traumatic stress disorder) F43.10 and Depression , unspecified depression type F32.9 [facility] [address] 40043 -5766 May, Fever, unspecified fever cause R50.9 and Gastroenteritis K52.9 [place] [address] 934068- 5330 Mar, Sprain of other ligament of right ankle, subsequent encounter S93.491D [place] [address] 44755- 9670 Mar, [facility] [place] [address] 61772 -8171 Feb, Scabies infestation B86 [place] [address] 65642- 7377 Feb, Dental caries K02.9 [place] [id number] [place] [address] 95943- 4567 Jan, [facility] [place] [id number] [place] [address] 37545 -9567 Jan, Pharyngitis, unspecified etiology J02.9 [place] [id number] [place] [address] 23943- 0081 Jan, [place] [address] 55121- 8970 Jan, Bipolar affective disorder, remission status unspecified F31.9 [place] [address] 91824- 4842 Jan, Encounter for dental examination and cleaning without abnormal findings Z01.20 [place] [id number] [place] [address] 87511- 5926 Jan, Bipolar affective disorder, remission status unspecified F31.9 [place] [id number] [place] [address] 91315- 3974 29 Dec, 2015 Bipolar affective disorder, remission status unspecified F31.9 and Depression, unspecified depression type F32.9 [place] [id number] [place] [address] 02312- 9271 Dec, Unspecified mood [affective] disorder F39 and Generalized anxiety disorder F41.1 [place] [address] 40985- 4529 08 Dec, 2015 Depression, unspecified depression type F32.9 [place] [id number] [place] [address] 67696- 5726 Nov, Dental caries K02.9 [place] [address] 60047- 6952 Nov, Dental examination Z01.20 [place] [id number] [place] [address] 54237- 6859 Sep, Bipolar affective disorder, remission status unspecified F31.9 [place] [id number] [place] [address] 31085- 5732 August, Tension headache G44.209 [facility] [id number] [place] [address] 61272 -4769 Jul, [facility] [id number] [place] [address] 20021 -7933 Jul, Upper respiratory infection J06.9 and Gastroenteritis K52.9 [place] [id number] [place] [address] 98428- 0878 Jun, Bronchitis J40 [facility] [place] [id number] [place] [address] 36732 -3118 05 Feb, 2015 Thoracic back pain M54.6 and Left shoulder pain M25.512 [facility] [address] [id number] [place] [address]- 5494 05 Feb, 2015 [facility] [address] [id number] [place] [address]- 1005 14 Jul, 2014 [facility] [address] [facility] [id number] [place] [address]- 6957 Jul, [facility] [address] [id number] [address]- 8580 Apr, [facility] [address] [id number] [place] [address]- 3779 Apr, [facility] [address] [facility] [id number], [place] [address]- 4018 Apr, [facility] [address] [facility] [id number], [place] [address]- 1008 Apr, [facility] [address] [facility] [id number], [place] [address]- 8054 Mar, [facility] [address] [facility] [id number] [address]- 2029 Mar, [facility] [place] [facility] [id number], [place] [address]- 9971 Mar, [facility] [place] [facility] [id number], [place] [address]- 0275 Mar, [facility] [place] [facility] [address] [id number] [address]- 6633 Feb, [facility] [place] [facility] [address] [facility] [id number], [place] [address]- 7473 Feb, [facility] [place] [facility] [address] [facility] [id number], [place] [address]- 3796 Feb, [facility] [place] [facility] [id number] 2617 Feb, [facility] [place] [facility] [address] [facility] [id number] [place] [address]- 1896 15 Jan, 2014 [facility] [place] [facility] [address] [id number] [place] [address]- 6299 15 Jan, 2014 [facility] [place] [facility] [address] [id number] [place] [address]- 8041 14 Jan, 2014 [facility] [place] [facility] [address] [id number] [place] [address]- 3992 14 Jan, 2014 [facility] [place] [facility] [address] [id number] [place] [address]- 6174 13 Jan, 2014 [facility] [place] [facility] [address] [id number] [place] [address]- 9313 Jan, [facility] [place] [facility] [address] [id number] [place] [address]- 8220 15 Dec, 2013 [facility] [place] [facility] [address] [id number] [place] [address]- 0539 Dec, [facility] [place] [facility] [address] [id number] [place] [address]- 8837 Nov, [facility] [place] [facility] [address] [id number] [place] [address]- 0165 Nov, [facility] [place] [facility] [address] [id number] [place] [address]- 6125 Nov, [facility] [place] [facility] [address] [id number] [place] [address]- 9216 Nov, [facility] [place] [facility] [address] [id number] [place] [address]- 3671 Nov, [facility] [place] [facility] [address] [id number] [place] [address]- 0982 Nov, [facility] [place] [facility] [address] [id number] [place] [address]- 1937 Nov, [facility] [place] [facility] [address] [id number] [place] [address]- 9730 Nov, [facility] [place] [facility] [address] [id number] [place] [address]- 5764 Nov, [facility] [place] [facility] [address] [id number] [place] [address]- 9470 Oct, [facility] [place] [facility] [address] [id number] [place] [address]- 2793 Oct, [facility] [place] [facility] [address] [id number] [place] [address]- 4732 Oct, [facility] [place] [facility] [address] [id number] [place] [address]- 4862 Oct, [facility] [place] [facility] [address] [id number] [place] [address]- 9362 Oct, [facility] [place] [facility] [address] [id number] [place] [address]- 3372 Oct, [facility] [place] [facility] [address] [id number] [place] [address]- 9559 Oct, [facility] [place] [facility] [address] [id number] [place] [address]- 8070 Oct, [facility] [place] [facility] [address] [id number] [place] [address]- 4947 Oct, [facility] [place] [facility] [address] [id number] [place] [address]- 9208 Oct, [facility] [place] [facility] [address] [id number] [place] [address]- 0150 Oct, [facility] [place] [facility] [address] [id number] [place] [address]- 5519 Oct, [facility] [place] [facility] [address] [id number] [place] [address]- 0000 Oct, [facility] [place] [facility] [address] [id number] [place] [address]- 4717 Oct, [facility] [place] [facility] [address] [id number] [place] [address]- 9367 Oct, [facility] [place] [facility] [address] [id number] [place] [address]- 2079 Oct, [facility] [place] [facility] [address] [id number] [place] [address] Oct, [facility] [place] [facility] [address] [id number] [place] [address] Oct, [facility] [place] [facility] [address] [id number] [place] [address] Oct, [facility] [place] [facility] [address] [id number] [place] [address] Sep, [facility] [place] [facility] [address] [id number] [place] [address] Sep, [facility] [place] [facility] [address] [id number] [place] [address] Sep, [facility] [place] [facility] [address] [id number] [place] [address] Sep, [facility] [place] [facility] [address] [id number] [place] [address] Feb, [facility] [place] [facility] [address] [id number] [place] [address] Feb, [facility] [place] [facility] [address] [id number] [place] [address] Dec, [facility] [place] [facility] [address] [id number] [place] [address] Dec, [facility] [place] [facility] [address] [id number] [place] [address] Nov, [facility] [place] [facility] [address] [id number] [place] [address] Nov, [facility] [place] [facility] [address] [id number] [place] [address] Nov, [facility] [place] [facility] [address] [id number] [place] [address] Nov, [facility] [address] [id number] [place] [address] Nov, [facility] [address] [id number] [place] [address] Nov, [facility] [address] [id number] [place] [address] Oct, [facility] [address] [id number] [place] [address] Apr, [facility] [address] [id number] [place] [address] August, [facility] [address] [id number] [place] [address] August, [facility] [address] [id number] [place] [address] August, [facility] [address] [id number] [place] [address] Jul, [facility] [address] [id number] [place] [address] Jun, [facility] [address] [id number] [place] [address] Jun, [facility] [address] [id number] [place] [address] Jun, [facility] [address] [id number] [place] [address] Jun, [facility] [address] [id number] [place] [address] Jun, [facility] [address] [id number] [place] [address] Jun, [facility] [address] [id number] [place] [address] May, [facility] [place] [facility] [address] [id number] [place] [address] 16 May, 2011 [facility] [place] [facility] [address] [id number] [place] [address] 09 May, 2011 [facility] [place] [facility] [address] [facility] [id number] [place] [address] 07 May, 2011 [facility] [place] [facility] [address] [id number] [place] [address] May, [facility] [place] [facility] [address] [id number] [place] [address] May, [facility] [place] [facility] [address] [facility] [id number] [place] [address] Apr, [facility] [place] [facility] [address] [facility] [id number] [place] [address] 07 Mar, 2011 [facility] [place] [facility] [address] [id number] [place] [address] Mar, [facility] [place] [facility] [address] [facility] [id number] [place] [address] Feb, [facility] [place] [facility] [address] [facility] [id number] [place] [address] Jan, [facility] [place] [facility] [address] [facility] [id number] [place] [address] 31 Mar, 2009 [facility] [place] [facility] [address] [id number], [place] [address] 15 Mar, 2009 [facility] [place] [facility] [address] [id number] [place] [address] 10 Mar, 2009 [facility] [place] [facility] [address] [facility] [id number] [place] [address] 10 Mar, 2009 [facility] [place] [facility] [address] [facility] [id number] [place] [address] 02 Mar, 2009 [facility] [place] [facility] [address] [facility] [id number] [place] [address] Feb, [facility] [address] [facility] [id number], [place] [address] Feb, [facility] [address] [facility] [id number], [place] [address] Nov, [facility] [address] [facility] [id number], [place] [address] May, IMMUNIZATIONS No Known Immunizations SOCIAL HISTORY Never Assessed REASON FOR VISIT f/u - [place] PLAN OF CARE Activity Details Follow Up 2 Weeks Reason: f/u VITAL SIGNS Height 64 in 2016-10-28 Weight 277.8 lbs 2016-10-28 Heart Rate 84 bpm 2016-10-28 Respiratory Rate 20 2016-10-28 BMI 47.68 kg/m2 2016-10-28 Blood pressure systolic 150 mmHg 2016-10-28 Blood pressure diastolic 94 mmHg 2016-10-28 MEDICATIONS Medication Instructions Dosage Frequency Start Date End Date Duration Status Lamictal 25 MG Orally daily for two weeks, then 2 tablets daily 1 tablet 30 day(s) Active Mirena 20 MCG/24HR Active Seroquel XR 150 MG Orally Once a day 1 tablet in the evening 24h Oct, Active Celexa 20 mg Orally Once a day 1 tablet 24h Oct, 30 day(s) Active RESULTS No Results PROCEDURES No Known procedures INSTRUCTIONS MEDICATIONS ADMINISTERED No Known Medications MEDICAL (GENERAL) HISTORY Type Description Date Medical History HELP syndrome Medical History bi-polar Medical History hypertension Medical History hx of seizure x1, isolated Surgical History gallbladder 10/2013 Surgical History 03/2014 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
--- OUTSIDE RECORDS SUMMARY | 2017-12-25 20:21 | XMS REPORT ---
Author Author ELIU HE Organization [employer] Address Unknown Phone Unavailable Care Team Providers Care Rock Wool Applicator Name Role Phone ELIU HE CP Unavailable Allergies, Adverse Reactions, Alerts Substance Reaction Event Type Azithromycin hives Drug Allergy ORAGEL Info Not Available Non Drug Allergy Problems Problem Type Condition Code Onset Dates Condition Status Problem Bipolar affective disorder, remission status unspecified F31.9 Active Assessment Encounter for dental examination and cleaning without abnormal findings Z01.20 Active Problem Depression, unspecified depression type F32.9 Active Medications Medication Code System Code Instructions Start Date End Date Status Dosage Vraylar [facility] [id number] not defined Mirena [facility] [id number] 20 MCG/24HR Intrauterine not defined Procedures Procedure Coding System Code Date INTRAORL-PERIAPICAL 1 FILM 28057 CPT-4 D0220 Jan 29, 2016 INTRAORL-PERIAPICAL EA ADD FILM CPT-4 D0230 Jan 29, 2016 COMP ORAL EVALUATION - NEW/EST PT CPT-4 D0150 Jan 29, 2016 TOPICAL FLUORIDE VARNISH CPT-4 D1206 Jan 29, 2016 INTRAORL-PERIAPICAL EA ADD FILM CPT-4 D0230 Jan 29, 2016 INTRAORL-PERIAPICAL EA ADD FILM CPT-4 D0230 Jan 29, 2016 Full mouth debridement CPT-4 D4355 Jan 29, 2016 BITEWINGS - FOUR FILMS CPT-4 D0274 Jan 29, 2016 Results No Known Results Summary Purpose [employer] Submission
--- OUTSIDE RECORDS SUMMARY | 2017-12-25 20:21 | XMS REPORT ---
Author Author CALLY [facility] Address Unknown Care Team Providers Care Recruiting Consultant Name Role Phone CALLY FOX Unavailable PROBLEMS Type Condition ICD9-CM Code [id number] Code Onset Dates Condition Status SNOMED Code Problem Bipolar affective disorder, remission status unspecified F31.9 Active [id number] Assessment Dental caries K02.9 Nov, Active [id number] ALLERGIES Substance Reaction Event Type Date Status Azithromycin hives Drug Allergy Nov, Active SOCIAL HISTORY No smoking Hx information available PLAN OF CARE VITAL SIGNS Blood pressure systolic 141 mmHg 2015-12-12 Blood pressure diastolic 92 mmHg 2015-12-12 MEDICATIONS Medication Instructions Dosage Frequency Start Date End Date Duration Status Celexa 20 mg Orally Once a day 1 tablet 24h August, Active Mirena 20 MCG/24HR Active RESULTS No Results PROCEDURES Procedure Date Ordered Related Diagnosis Body Site EXTRAC ERUPTED TOOTH/EXPOSED ROOT Dec 12, 2015 Billing Notes on claim Dec 12, 2015 IMMUNIZATIONS No Known Immunizations
--- OUTSIDE RECORDS SUMMARY | 2017-12-25 20:21 | XMS REPORT ---
Author Author OLY DURBIN [facility] Address [address] [place] [address] Care Team Providers Care Processing Analyst Name Role Phone OLY DURBIN Unavailable PROBLEMS Type Condition ICD9-CM Code YNH68-CV Code Onset Dates Condition Status SNOMED Code Problem Bipolar I disorder with depression F31.9 Active 73468901 Problem Amenorrhea N91.2 Active 34316356 Problem Social anxiety disorder F40.10 Active 36052968 Problem Obsessive-compulsive disorder, unspecified type F42.9 Active 902743583 Problem PTSD (post-traumatic stress disorder) F43.10 Active 18671707 Problem Mood disorder F39 Active 67686952 Problem 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 Active 49523232 ALLERGIES No Information ENCOUNTERS Encounter Location Date Diagnosis [place] [id number] [place] [address] 94127- 8556 Sep, [place] [address] [place] [address] [id number] [place] [address] 91987- 4801 Sep, [place] [id number] [place] [address] 13828- 8164 Sep, [facility] [id number] [place] [address] 23074- 8239 August, [facility] [id number] [place] [address] 16162- 8334 August, [facility] [id number] [place] [address] 43971- 4311 Jul, Bipolar I disorder with depression F31.9 ; PTSD (post- traumatic stress disorder) F43.10 ; 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 ; Social anxiety disorder F40.10 and BMI 50.0-59.9, adult Z68.43 [facility] [id number] [place] [address] 75037- 9383 18 Jul, 2017 PTSD (post-traumatic stress disorder) F43.10 and Bipolar I disorder with depression F31.9 [place] [id number] [place] [address] 68336- 6920 09 Jul, 2017 Pelvic pain R10.2 ; Amenorrhea N91.2 and BMI 50.0-59.9, adult Z68.43 [place] [id number] [place] [address] 26547- 8949 Jun, BMI 50.0-59.9, adult Z68.43 ; Bipolar I disorder with depression F31.9 ; PTSD (post-traumatic stress disorder) F43.10 and 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 [facility] [id number] [place] [address] 47537 -3677 15 Jun, 2017 Other viral agents as the cause of diseases classified elsewhere B97.89 ; Other specified respiratory disorders J98.8 ; Bronchitis J40 and Cough R05 [place] [id number] [place] [address] 87492- 8623 Jun, PTSD (post-traumatic stress disorder) F43.10 [place] [id number] [place] [address] 20446- 8585 Jun, PTSD (post-traumatic stress disorder) F43.10 and Bipolar I disorder with depression F31.9 [place] [id number] [place] [address] 22967- 3902 13 May, 2017 PTSD (post-traumatic stress disorder) F43.10 and Bipolar I disorder with depression F31.9 [place] [id number] [place] [address] 72916- 7368 12 May, 2017 [place] [address] [id number] [place] [address] 12344- 7697 07 May, 2017 PTSD (post-traumatic stress disorder) F43.10 and Bipolar I disorder with depression F31.9 [place] [address] [address] 1236 Apr, PTSD (post-traumatic stress disorder) F43.10 and Bipolar I disorder with depression F31.9 [facility] [id number] [place] [address] 32217- 5011 Apr, PTSD (post-traumatic stress disorder) F43.10 and Bipolar I disorder with depression F31.9 [place] [id number] [place] [address] 13332- 4118 Mar, PTSD (post-traumatic stress disorder) F43.10 ; Obsessive- compulsive disorder, unspecified type F42.9 ; Bipolar I disorder with depression F31.9 and Other [employer] [facility] [employer] (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.899 [place] [id number] [place] [address] 16602- 2064 Mar, PTSD (post-traumatic stress disorder) F43.10 and Bipolar I disorder with depression F31.9 [place] [id number] [place] [address] 99032- 6511 Feb, PTSD (post-traumatic stress disorder) F43.10 and Bipolar I disorder with depression F31.9 [place] [id number] [place] [address] 90210- 6824 Feb, PTSD (post-traumatic stress disorder) F43.10 and Bipolar I disorder with depression F31.9 [facility] [id number] [place] [address] 12924 -9755 Jan, Strep pharyngitis J02.0 [facility] [id number] [place] [address] 21855- 4687 Jan, [facility] [id number] [place] [address] 58924- 7747 Jan, [place] [id number] [place] [address] 11528- 9225 Jan, PTSD (post-traumatic stress disorder) F43.10 and Bipolar I disorder with depression F31.9 [facility] [address] [address]- 9506 Jan, PTSD (post-traumatic stress disorder) F43.10 and Bipolar I disorder with depression F31.9 [facility] [address] [address]- 6074 Jan, Other [employer] [facility] [employer] (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.899 [place] [id number] [place] [address] 77324- 8245 02 Jan, 2017 PTSD (post-traumatic stress disorder) F43.10 ; Obsessive- compulsive disorder, unspecified type F42.9 ; Bipolar I disorder with depression F31.9 and Other [employer] (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.899 [place] [address] [place] [address] 35053- 0943 27 Dec, 2016 Encounter for IUD removal Z30.432 and control counseling Z30.09 [place] [id number] [place] [address] 24251- 2497 Dec, PTSD (post-traumatic stress disorder) F43.10 ; Obsessive- compulsive disorder, unspecified type F42.9 and Bipolar I disorder with depression F31.9 [place] [address] [place] [address] 37693- 8460 Dec, PTSD (post-traumatic stress disorder) F43.10 and Bipolar I disorder with depression F31.9 [place] [address] [place] [address] 41106- 9203 Dec, PTSD (post-traumatic stress disorder) F43.10 and Bipolar I disorder with depression F31.9 [place] [id number] [place] [address] 72976- 2911 11 Dec, 2016 Mood disorder F39 [place] [id number] [place] [address] 49992- 4494 08 Dec, 2016 PTSD (post-traumatic stress disorder) F43.10 ; Mood disorder F39 and Obsessive-compulsive disorder, unspecified type F42.9 [facility] [id number] [address]- 7116 07 Dec, 2016 PTSD (post-traumatic stress disorder) F43.10 and Bipolar I disorder with depression F31.9 [facility] [id number] [address]9676 Dec, Adverse drug reaction, initial encounter T88.7XXA [facility] [id number] [place] [address] 73051- 5504 Dec, [facility] [id number] [place] [address] 17638- 2738 Nov, PTSD (post-traumatic stress disorder) F43.10 and Bipolar I disorder with depression F31.9 [facility] [id number] [address]- 0700 Nov, PTSD (post-traumatic stress disorder) F43.10 ; Mood disorder F39 and Obsessive-compulsive disorder, unspecified type F42.9 [facility] [id number] [address]- 7007 Nov, PTSD (post-traumatic stress disorder) F43.10 and Bipolar I disorder with depression F31.9 [facility] [id number] [address]- 2299 Nov, PTSD (post-traumatic stress disorder) F43.10 and Bipolar I disorder with depression F31.9 [facility] [id number] [address] -3507 Nov, [facility] [id number] [address]- 2721 Nov, PTSD (post-traumatic stress disorder) F43.10 and Bipolar I disorder with depression F31.9 [facility] [id number] [address]- 9336 Nov, PTSD (post-traumatic stress disorder) F43.10 and Bipolar I disorder with depression F31.9 [facility] [id number] [address]- 9459 Oct, [facility] [id number] [place] [address] 03547- 8342 Oct, PTSD (post-traumatic stress disorder) F43.10 ; Mood disorder F39 and Obsessive-compulsive disorder, unspecified type F42.9 [facility] [id number] [place] [address] 94339- 9959 Oct, PTSD (post-traumatic stress disorder) F43.10 and Bipolar I disorder with depression F31.9 [facility] [address] [id number] [place] [address] 84559- 8335 Oct, PTSD (post-traumatic stress disorder) F43.10 and Bipolar I disorder with depression F31.9 [facility] [id number] [place] [address] 63261- 3115 Oct, PTSD (post-traumatic stress disorder) F43.10 ; Mood disorder F39 and Obsessive-compulsive disorder, unspecified type F42.9 [facility] [id number] [address]- 3455 Oct, [facility] [id number] [place] [address] 24334- 2451 Oct, PTSD (post-traumatic stress disorder) F43.10 and Bipolar I disorder with depression F31.9 [facility] [address] [address]- 1575 Oct, PTSD (post-traumatic stress disorder) F43.10 ; Mood disorder F39 and Obsessive-compulsive disorder, unspecified type F42.9 [facility] [id number] [address]- 2511 Sep, PTSD (post-traumatic stress disorder) F43.10 and Bipolar I disorder with depression F31.9 [facility] [address] [address]- 0966 Sep, PTSD (post-traumatic stress disorder) F43.10 ; Mood disorder F39 and Obsessive-compulsive disorder, unspecified type F42.9 [facility] [id number] [place] [address] 39996- 4340 Sep, PTSD (post-traumatic stress disorder) F43.10 and Bipolar I disorder with depression F31.9 [facility] [id number] [place] [address] 34271- 7211 Sep, PTSD (post-traumatic stress disorder) F43.10 and Bipolar I disorder with depression F31.9 [facility] [id number] [place] [address] 58577- 5410 August, PTSD (post-traumatic stress disorder) F43.10 and Bipolar I disorder with depression F31.9 [facility] [id number] [place] [address] 67647 -5747 August, Pharyngitis due to other organism J02.8 [facility] [id number] [place] [address] 74889- 4017 August, PTSD (post-traumatic stress disorder) F43.10 ; Bipolar 1 disorder, mixed F31.60 and Other [employer] (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.899 [facility] [id number] [place] [address] 97392- 4521 August, PTSD (post-traumatic stress disorder) F43.10 and Bipolar I disorder with depression F31.9 [facility] [id number] [place] [address] 45979- 3591 Jul, PTSD (post-traumatic stress disorder) F43.10 and Bipolar I disorder with depression F31.9 [facility] [id number] [place] [address] 44287- 0044 Jul, PTSD (post-traumatic stress disorder) F43.10 and Bipolar I disorder with depression F31.9 [facility] [address] [place] [address] 58795- 9336 Jul, PTSD (post-traumatic stress disorder) F43.10 and Bipolar I disorder with depression F31.9 [facility] [id number] [place] [address] 43463- 6337 Jul, Other halfway (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.899 [place] [address] [place] [id number] [place] [address] 29452- 5875 Jun, PTSD (post-traumatic stress disorder) F43.10 and Bipolar I disorder with depression F31.9 [place] [address] 26277- 9335 Jun, Bipolar 1 disorder, mixed F31.60 ; PTSD (post-traumatic stress disorder) F43.10 and Other halfway (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.899 [place] [address] [place] [address] [id number] [place] [address] 52812- 3988 Jun, PTSD (post-traumatic stress disorder) F43.10 and Depression , unspecified depression type F32.9 [place] [address] [place] [id number] [place] [address] 84466- 7311 Jun, PTSD (post-traumatic stress disorder) F43.10 and Depression , unspecified depression type F32.9 [place] [address] [place] [id number] [place] [address] 66767- 9858 Jun, PTSD (post-traumatic stress disorder) F43.10 and Depression , unspecified depression type F32.9 [facility] [id number] [place] [address] 46641 -0108 May, Fever, unspecified fever cause R50.9 and Gastroenteritis K52.9 [place] [id number] [place] [address] 76712- 8414 Mar, Sprain of other ligament of right ankle, subsequent encounter S93.491D [facility] [id number] [place] [address] 90967- 9395 Mar, [facility] [address] 91941 -6000 Feb, Scabies infestation B86 [facility] [id number] [place] [address] 20915- 4453 Feb, Dental caries K02.9 [facility] [id number] [place] [address] 80753- 3112 Jan, [facility] [id number] [place] [address] 48214 -7977 Jan, Pharyngitis, unspecified etiology J02.9 [facility] [id number] [place] [address] 99664- 5947 Jan, [facility] [address] [id number] [place] [address] 47061- 9395 Jan, Bipolar affective disorder, remission status unspecified F31.9 [place] [address] [id number] [place] [address] 41261- 0548 Jan, Encounter for dental examination and cleaning without abnormal findings Z01.20 [facility] [id number] [place] [address] 09840- 0520 Jan, Bipolar affective disorder, remission status unspecified F31.9 [facility] [id number] [place] [address] 67179- 9401 Dec, Bipolar affective disorder, remission status unspecified F31.9 and Depression, unspecified depression type F32.9 [facility] [id number] [place] [address] 50857- 3358 Dec, Unspecified mood [affective] disorder F39 and Generalized anxiety disorder F41.1 [facility] [address] [place] [id number] [place] [address] 27327- 8735 08 Dec, 2015 Depression, unspecified depression type F32.9 [facility] [address] [place] [address] 11853- 7505 Nov, Dental caries K02.9 [facility] [id number] [place] [address] 89638- 4344 Nov, Dental examination Z01.20 [facility] [id number] [place] [address] 77705- 6387 Sep, Bipolar affective disorder, remission status unspecified F31.9 [facility] [id number] [place] [address] 71850- 6553 August, Tension headache G44.209 [facility] [id number] [place] [address] 56336 -8055 Jul, [facility] [id number] [place] [address] 45253 -2698 Jul, Upper respiratory infection J06.9 and Gastroenteritis K52.9 [facility] [id number] [place] [address] 38976- 9072 Jun, Bronchitis J40 [facility] [id number] [place] [address] 90844 -1624 Feb, Thoracic back pain M54.6 and Left shoulder pain M25.512 [facility] [address] [place] [id number] [place] [address] 35317- 0051 Feb, [facility] [id number] [place] [address] 12912- 4752 Jul, [facility] [address] [place] [address] 60956- 2296 Jul, [facility] [id number] [place] [address] 57866- 0661 Apr, [facility] [id number] [place] [address] 55888- 2018 Apr, [facility] [id number] [place] [address] 65939- 3377 Apr, [facility] [address] [place] [address] 66885- 3121 Apr, [facility] [id number] [place] 4855 Mar, [facility] [place] [facility] [address] [id number] [place]- 1086 Mar, [facility] [place] [facility] [address] [id number] [place]- 5946 Mar, [facility] [place] [facility] [address] [id number] [place] [address]- 7726 Mar, [facility] [place] [facility] [address] [id number] [place] [address]- 5577 Feb, [facility] [place] [facility] [address] [id number] [place] 8323 Feb, [facility] [place] [facility] [address] [id number] [place] [address]- 4277 Feb, [facility] [place] [facility] [address] [id number] [place] [address]- 1788 Feb, [facility] [place] [facility] [address] [id number] [place] [address]- 8443 15 Jan, 2014 [facility] [place] [facility] [address] [id number] [place] [address]- 3495 15 Jan, 2014 [facility] [place] [facility] [address] [id number] [place] [address]- 7392 14 Jan, 2014 [facility] [place] [facility] [address] [id number] [place] [address]- 9322 14 Jan, 2014 [facility] [place] [facility] [address] [id number] [place] [address]- 2326 13 Jan, 2014 [facility] [place] [facility] [address] [id number] [place] [address]- 9752 Jan, [facility] [place] [facility] [address] [id number] [place] [address]- 6067 15 Dec, 2013 [facility] [place] [facility] [address] [id number] [place] [address]- 6751 Dec, [facility] [place] [facility] [address] [id number] [place] [address]- 8139 Nov, [facility] [place] [facility] [address] [id number] [place] [address]- 0590 Nov, [facility] [place] [facility] [address] [id number] [place] [address]- 0361 Nov, [facility] [place] [facility] [address] [id number] [place] [address]- 2030 Nov, [facility] [place] [facility] [address] [id number] [place] [address]- 4377 Nov, [facility] [place] [facility] [address] [id number] [place] [address]- 0006 Nov, [facility] [place] [facility] [address] [id number] [place] [address]- 2455 Nov, [facility] [place] [facility] [address] [id number] [place] [address]- 4156 Nov, [facility] [place] [facility] [address] [id number] [place] [address]- 0466 Nov, [facility] [place] [facility] [address] [id number] [place] [address]- 7303 Oct, [facility] [place] [facility] [address] [id number] [place] [address]- 7941 Oct, [facility] [place] [facility] [address] [id number] [place] [address]- 3478 Oct, [facility] [place] [facility] [address] [id number] [place] [address]- 4574 Oct, [facility] [place] [facility] [address] [id number] [place] [address]- 3897 Oct, [facility] [place] [facility] [address] [id number] [place] [address]- 2377 Oct, [facility] [place] [facility] [address] [id number] [place] [address]- 7065 Oct, 2013 [facility] [place] [facility] [address] [id number] [place] [address]- 1487 16 Oct, 2013 [facility] [place] [facility] [address] [id number] [place] [address]- 1052 Oct, 2013 [facility] [place] [facility] [address] [id number] [place] [address]- 9623 Oct, 2013 [facility] [place] [facility] [address] [id number] [place] [address]- 2651 Oct, 2013 [facility] [place] [facility] [address] [id number] [place] [address]- 0831 Oct, 2013 [facility] [place] [facility] [address] [id number] [place] [address]- 9804 Oct, 2013 [facility] [place] [facility] [address] [id number] [place] [address]- 8665 Oct, [facility] [place] [facility] [address] [id number] [place] [address]- 0766 Oct, [facility] [place] [facility] [address] [id number] [place] [address]- 4009 Oct, [facility] [place] [facility] [address] [id number] [place] [address]- 6166 Oct, [facility] [place] [facility] [address] [id number] [place] [address]- 8894 Oct, [facility] [place] [facility] [address] [id number] [place] [address] Oct, [facility] [place] [facility] [address] [id number] [place] [address] Sep, [facility] [place] [facility] [address] [id number] [place] [address] Sep, [facility] [place] [facility] [address] [id number] [place] [address] Sep, [facility] [place] [facility] [address] [id number] [place] [address] Sep, [facility] [address] [id number] [place] [address] Feb, [facility] [place] [facility] [address] [id number] [place] [address] Feb, [facility] [place] [facility] [address] [id number] [place] [address] Dec, [facility] [place] [facility] [address] [id number] [place] [address] Dec, [facility] [place] [facility] [address] [id number] [place] [address] Nov, [facility] [place] [facility] [address] [id number] [place] [address] Nov, [facility] [place] [facility] [address] [id number] [place] [address] Nov, [facility] [place] [facility] [address] [id number] [place] [address] Nov, [facility] [place] [facility] [address] [id number] [place] [address] Nov, [facility] [place] [facility] [address] [id number] [place] [address] Nov, [facility] [place] [facility] [address] [id number] [place] [address] Oct, [facility] [place] [facility] [address] [id number] [place] [address] Apr, [facility] [place] [facility] [address] [id number] [place] [address] August, [facility] [place] [facility] [address] [id number] [place] [address] August, [facility] [place] [facility] [address] [id number] [place] [address] August, [facility] [place] [facility] [address] [id number] [place] [address] Jul, [facility] [place] [facility] [address] [id number] [place] [address] Jun, [facility] [place] [facility] [address] [id number] [place] [address] Jun, [facility] [place] [facility] [address] [id number] [place] [address] Jun, [facility] [place] [facility] [address] [id number] [place] [address] Jun, [facility] [place] [facility] [address] [id number] [place] [address] Jun, [facility] [place] [facility] [address] [id number] [place] [address] Jun, [facility] [place] [facility] [address] [id number] [place] [address] May, [facility] [place] [facility] [address] [id number] [place] [address] May, [facility] [place] [facility] [address] [id number] [place] [address] May, [facility] [place] [facility] [address] [id number] [place] [address] May, [facility] [place] [facility] [address] [id number] [place] [address] May, [facility] [place] [facility] [address] [id number] [place] [address] May, [facility] [place] [facility] [address] [id number] [place] [address] Apr, [facility] [place] [facility] [address] [id number] [place] [address] Mar, [facility] [place] [facility] [id number] [address] Mar, [facility] [id number] [address] Feb, [facility] [id number] [address] Jan, [facility] [id number] [address] Mar, [facility] [id number] [address] Mar, [facility] [id number] [place] [address] Mar, [facility] [id number] [address] Mar, [facility] [id number] [address] Mar, [facility] [id number] [address] Feb, [facility] [id number] [address] Feb, [facility] [id number] [address] Nov, [facility] [id number] [address] May, IMMUNIZATIONS No Known Immunizations SOCIAL HISTORY Never Assessed REASON FOR VISIT Follow-up PTSD/Bipolar Disorder PLAN OF CARE Activity Details Follow Up 1 Week Reason: Follow-up VITAL SIGNS MEDICATIONS Unknown Medications RESULTS No Results PROCEDURES Procedure Date Ordered Result Body Site Psychotherapy, patient &/family, 45 minutes, established patient Jan 06, 2017 INSTRUCTIONS MEDICATIONS ADMINISTERED No Known Medications MEDICAL (GENERAL) HISTORY Type Description Date Medical History HELP syndrome Medical History bi-polar Medical History hypertension Medical History hx of seizure x1, isolated Surgical History gallbladder 10/2013 Surgical History 03/2014 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
--- OUTSIDE RECORDS SUMMARY | 2017-12-25 20:21 | XMS REPORT ---
Author Author RAYMON DURBIN Organization [facility] Address [address] [place] [address] Care Team Providers Care Laser Beam Trim Operator Name Role Phone RAYMON DURBIN Unavailable PROBLEMS Type Condition ICD9-CM Code [id number] Code Onset Dates Condition Status SNOMED Code Problem Depression, unspecified depression type F32.9 Active 17890278 Problem Bipolar affective disorder, remission status unspecified F31.9 Active 99191567 Assessment Unspecified mood [affective] disorder F39 Dec, Active 54510328 Assessment Generalized anxiety disorder F41.1 Dec, Active 21703250 ALLERGIES Unknown Allergies SOCIAL HISTORY No smoking Hx information available PLAN OF CARE VITAL SIGNS MEDICATIONS Unknown Medications RESULTS No Results PROCEDURES Procedure Date Ordered Related Diagnosis Body Site Psychotherapy, patient &/family, 30 minutes, established patient Dec 25, 2015 IMMUNIZATIONS No Known Immunizations
--- OUTSIDE RECORDS SUMMARY | 2017-12-25 20:22 | XMS REPORT ---
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 Highway Patrol Officer Name Role Phone OLY DURBIN Unavailable PROBLEMS Type Condition ICD9-CM Code [id number] Code Onset Dates Condition Status SNOMED Code Problem Bipolar I disorder with depression F31.9 Active 95301171 Problem Amenorrhea N91.2 Active 37687536 Problem Social anxiety disorder F40.10 Active 65610757 Problem Obsessive-compulsive disorder, unspecified type F42.9 Active 453316793 Problem PTSD (post-traumatic stress disorder) F43.10 Active 10488198 Problem Mood disorder F39 Active 20537712 Problem 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 Active 04324166 ALLERGIES No Information ENCOUNTERS Encounter Location Date Diagnosis [place] [id number] [place] [address] 66330- 3258 Sep, [place] [address] [id number] [place] [address] 13663- 0016 Sep, [place] [id number] [place] [address] 67699- 7299 Sep, [facility] [id number] [place] [address] 76885- 3394 August, [facility] [id number] [place] [address] 24068- 7552 August, [facility] [id number] [place] [address] 60249- 9849 Jul, Bipolar I disorder with depression F31.9 ; PTSD (post- traumatic stress disorder) F43.10 ; 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 ; Social anxiety disorder F40.10 and BMI 50.0-59.9, adult Z68.43 [facility] [id number] [place] [address] 31772- 6528 18 Jul, 2017 PTSD (post-traumatic stress disorder) F43.10 and Bipolar I disorder with depression F31.9 [place] [id number] [place] [address] 24950- 2435 09 Jul, 2017 Pelvic pain R10.2 ; Amenorrhea N91.2 and BMI 50.0-59.9, adult Z68.43 [place] [id number] [place] [address] 87699- 3537 Jun, BMI 50.0-59.9, adult Z68.43 ; Bipolar I disorder with depression F31.9 ; PTSD (post-traumatic stress disorder) F43.10 and 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 [facility] [id number] [place] [address] 88075 -6012 15 Jun, 2017 Other viral agents as the cause of diseases classified elsewhere B97.89 ; Other specified respiratory disorders J98.8 ; Bronchitis J40 and Cough R05 [place] [id number] [place] [address] 37711- 8584 Jun, PTSD (post-traumatic stress disorder) F43.10 [place] [id number] [place] [address] 30450- 1227 Jun, PTSD (post-traumatic stress disorder) F43.10 and Bipolar I disorder with depression F31.9 [place] [id number] [place] [address] 77745- 0426 13 May, 2017 PTSD (post-traumatic stress disorder) F43.10 and Bipolar I disorder with depression F31.9 [place] [id number] [place] [address] 71901- 2416 12 May, 2017 [place] [id number] [place] [address] 21654- 5329 07 May, 2017 PTSD (post-traumatic stress disorder) F43.10 and Bipolar I disorder with depression F31.9 [place] [address] [address] 5447 Apr, PTSD (post-traumatic stress disorder) F43.10 and Bipolar I disorder with depression F31.9 [facility] [id number] [place] [address] 86084- 6126 Apr, PTSD (post-traumatic stress disorder) F43.10 and Bipolar I disorder with depression F31.9 [place] [id number] [place] [address] 98948- 0663 Mar, PTSD (post-traumatic stress disorder) F43.10 ; Obsessive- compulsive disorder, unspecified type F42.9 ; Bipolar I disorder with depression F31.9 and 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 [place] [id number] [place] [address] 70682- 6415 Mar, PTSD (post-traumatic stress disorder) F43.10 and Bipolar I disorder with depression F31.9 [place] [id number] [place] [address] 61618- 3332 Feb, PTSD (post-traumatic stress disorder) F43.10 and Bipolar I disorder with depression F31.9 [place] [id number] [place] [address] 68127- 8930 Feb, PTSD (post-traumatic stress disorder) F43.10 and Bipolar I disorder with depression F31.9 [facility] [id number] [place] [address] 75977 -7683 Jan, Strep pharyngitis J02.0 [facility] [id number] [place] [address] 76529- 1992 Jan, [facility] [id number] [place] [address] 32355- 6182 Jan, [place] [id number] [place] [address] 58457- 1601 Jan, PTSD (post-traumatic stress disorder) F43.10 and Bipolar I disorder with depression F31.9 [facility] [address] [address]- 0587 Jan, PTSD (post-traumatic stress disorder) F43.10 and Bipolar I disorder with depression F31.9 [facility] [address] [address]- 3912 Jan, 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 [place] [id number] [place] [address] 93953- 3753 02 Jan, 2017 PTSD (post-traumatic stress disorder) F43.10 ; Obsessive- compulsive disorder, unspecified type F42.9 ; Bipolar I disorder with depression F31.9 and 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 [place] [id number] [place] [address] 31357- 1123 27 Dec, 2016 Encounter for IUD removal Z30.432 and control counseling Z30.09 [place] [id number] [place] [address] 13524- 1269 Dec, PTSD (post-traumatic stress disorder) F43.10 ; Obsessive- compulsive disorder, unspecified type F42.9 and Bipolar I disorder with depression F31.9 [place] [address] [place] [address] 59926- 9435 Dec, PTSD (post-traumatic stress disorder) F43.10 and Bipolar I disorder with depression F31.9 [place] [address] [place] [address] 23401- 7760 Dec, PTSD (post-traumatic stress disorder) F43.10 and Bipolar I disorder with depression F31.9 [place] [id number] [place] [address] 03266- 4789 11 Dec, 2016 Mood disorder F39 [place] [address] [place] [address] 10014- 2413 08 Dec, 2016 PTSD (post-traumatic stress disorder) F43.10 ; Mood disorder F39 and Obsessive-compulsive disorder, unspecified type F42.9 [facility] [id number] [address]- 7679 07 Dec, 2016 PTSD (post-traumatic stress disorder) F43.10 and Bipolar I disorder with depression F31.9 [facility] [id number] [address] Dec, Adverse drug reaction, initial encounter T88.7XXA [facility] [id number] [place] [address] 22302- 4960 Dec, [facility] [id number] [place] [address] 14457- 9157 Nov, PTSD (post-traumatic stress disorder) F43.10 and Bipolar I disorder with depression F31.9 [facility] [id number] [address]- 4542 Nov, PTSD (post-traumatic stress disorder) F43.10 ; Mood disorder F39 and Obsessive-compulsive disorder, unspecified type F42.9 [facility] [id number] [address]- 5310 Nov, PTSD (post-traumatic stress disorder) F43.10 and Bipolar I disorder with depression F31.9 [facility] [id number] [address]- 3954 Nov, PTSD (post-traumatic stress disorder) F43.10 and Bipolar I disorder with depression F31.9 [facility] [id number] [address] -6457 Nov, [facility] [id number] [address]- 3862 Nov, PTSD (post-traumatic stress disorder) F43.10 and Bipolar I disorder with depression F31.9 [facility] [id number] [address]- 1202 Nov, PTSD (post-traumatic stress disorder) F43.10 and Bipolar I disorder with depression F31.9 [facility] [id number], [place] [address]- 8296 Oct, [facility] [id number] [place] [address] 18751- 6198 Oct, PTSD (post-traumatic stress disorder) F43.10 ; Mood disorder F39 and Obsessive-compulsive disorder, unspecified type F42.9 [facility] [address] [place] [address] 69102- 2856 Oct, PTSD (post-traumatic stress disorder) F43.10 and Bipolar I disorder with depression F31.9 [facility] [address] [id number] [place] [address] 75445- 6251 Oct, PTSD (post-traumatic stress disorder) F43.10 and Bipolar I disorder with depression F31.9 [facility] [address] [place] [address] 38870- 7184 Oct, PTSD (post-traumatic stress disorder) F43.10 ; Mood disorder F39 and Obsessive-compulsive disorder, unspecified type F42.9 [facility] [id number] [address]- 7628 Oct, [facility] [id number] [place] [address] 69563- 5903 Oct, PTSD (post-traumatic stress disorder) F43.10 and Bipolar I disorder with depression F31.9 [facility] [address] [address]- 9988 Oct, PTSD (post-traumatic stress disorder) F43.10 ; Mood disorder F39 and Obsessive-compulsive disorder, unspecified type F42.9 [facility] [id number] [address]- 6677 Sep, PTSD (post-traumatic stress disorder) F43.10 and Bipolar I disorder with depression F31.9 [facility] [address] [address]- 4146 Sep, PTSD (post-traumatic stress disorder) F43.10 ; Mood disorder F39 and Obsessive-compulsive disorder, unspecified type F42.9 [facility] [address] [place] [address] 35209- 5145 Sep, PTSD (post-traumatic stress disorder) F43.10 and Bipolar I disorder with depression F31.9 [facility] [id number] [place] [address] 16481- 8175 Sep, PTSD (post-traumatic stress disorder) F43.10 and Bipolar I disorder with depression F31.9 [facility] [id number] [place] [address] 57244- 9966 August, PTSD (post-traumatic stress disorder) F43.10 and Bipolar I disorder with depression F31.9 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 [facility] [id number] [place] [address] 50166- 4864 August, PTSD (post-traumatic stress disorder) F43.10 and Bipolar I disorder with depression F31.9 [facility] [address] [place] [address] 00865- 4790 Jul, PTSD (post-traumatic stress disorder) F43.10 and Bipolar I disorder with depression F31.9 [facility] [id number] [place] [address] 02258- 3745 Jul, PTSD (post-traumatic stress disorder) F43.10 and Bipolar I disorder with depression F31.9 [facility] [address] [place] [address] 36441- 5856 Jul, PTSD (post-traumatic stress disorder) F43.10 and Bipolar I disorder with depression F31.9 [facility] [id number] [place] [address] 07821- 2416 Jul, Other snf (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.899 [place] [address] [id number] [place] [address] 20750- 4089 Jun, PTSD (post-traumatic stress disorder) F43.10 and Bipolar I disorder with depression F31.9 [place] [address] 90417- 7071 Jun, Bipolar 1 disorder, mixed F31.60 ; PTSD (post-traumatic stress disorder) F43.10 and Other snf (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.899 [place] [address] [id number] [place] [address] 40728- 7804 Jun, PTSD (post-traumatic stress disorder) F43.10 and Depression , unspecified depression type F32.9 [place] [id number] [place] [address] 01448- 6751 Jun, PTSD (post-traumatic stress disorder) F43.10 and Depression , unspecified depression type F32.9 [place] [id number] [place] [address] 56915- 1087 Jun, PTSD (post-traumatic stress disorder) F43.10 and Depression , unspecified depression type F32.9 [facility] [id number] [place] [address] 54920 -1515 May, Fever, unspecified fever cause R50.9 and Gastroenteritis K52.9 [place] [id number] [place] [address] 72843- 8240 Mar, Sprain of other ligament of right ankle, subsequent encounter S93.491D [facility] [id number] [place] [address] 64812- 2584 Mar, [facility] [address] 78938 -5487 Feb, Scabies infestation B86 [facility] [id number] [place] [address] 47986- 7285 Feb, Dental caries K02.9 [facility] [id number] [place] [address] 52196- 8475 Jan, [facility] [id number] [place] [address] 48241 -7320 Jan, Pharyngitis, unspecified etiology J02.9 [facility] [id number] [place] [address] 38293- 9193 Jan, [facility] [id number] [place] [address] 10636- 5556 Jan, Bipolar affective disorder, remission status unspecified F31.9 [place] [id number] [place] [address] 47170- 4146 Jan, Encounter for dental examination and cleaning without abnormal findings Z01.20 [facility] [id number] [place] [address] 15063- 5893 Jan, Bipolar affective disorder, remission status unspecified F31.9 [facility] [id number] [place] [address] 49421- 0750 Dec, Bipolar affective disorder, remission status unspecified F31.9 and Depression, unspecified depression type F32.9 [facility] [id number] [place] [address] 39454- 0670 Dec, Unspecified mood [affective] disorder F39 and Generalized anxiety disorder F41.1 [facility] [id number] [place] [address] 31387- 9266 08 Dec, 2015 Depression, unspecified depression type F32.9 [facility] [address] [place] [address] 36470- 4044 Nov, Dental caries K02.9 [facility] [id number] [place] [address] 06929- 9876 Nov, Dental examination Z01.20 [facility] [id number] [place] [address] 04791- 0499 Sep, Bipolar affective disorder, remission status unspecified F31.9 [facility] [id number] [place] [address] 38328- 1091 August, Tension headache G44.209 [facility] [id number] [place] [address] 58721 -0563 Jul, [facility] [id number] [place] [address] 61697 -1845 Jul, Upper respiratory infection J06.9 and Gastroenteritis K52.9 [facility] [id number] [place] [address] 13385- 3448 Jun, Bronchitis J40 [facility] [id number] [place] [address] 07102 -7021 Feb, Thoracic back pain M54.6 and Left shoulder pain M25.512 [facility] [id number] [place] [address] 36414- 4926 Feb, [facility] [id number] [place] [address] 98516- 3003 Jul, [facility] [address] [place] [address] 14436- 3718 Jul, [facility] [id number] [place] [address] 33441- 7335 Apr, [facility] [id number] [place] [address] 11018- 2715 Apr, [facility] [id number] [place] [address] 69565- 9242 Apr, [facility] [address] [place] [address] 59724- 3008 Apr, [facility] [id number] [address]2 Mar, [facility] [place] [facility] [address] [id number] [place] 9752 Mar, [facility] [place] [facility] [address] [id number] [place] 6704 Mar, [facility] [place] [facility] [address] [id number] [place] [address]- 6927 Mar, [facility] [place] [facility] [address] [id number] [place] [address]- 6571 Feb, [facility] [place] [facility] [address] [id number] [place] 5973 Feb, [facility] [place] [facility] [address] [id number] [place] [address]- 6327 Feb, [facility] [place] [facility] [address] [id number] [place] [address]- 1163 Feb, [facility] [place] [facility] [address] [id number] [place] [address]- 6373 15 Jan, 2014 [facility] [place] [facility] [address] [id number] [place] [address]- 3280 15 Jan, 2014 [facility] [place] [facility] [address] [id number] [place] [address]- 7266 14 Jan, 2014 [facility] [place] [facility] [address] [id number] [place] [address]- 9114 14 Jan, 2014 [facility] [place] [facility] [address] [id number] [place] [address]- 9805 13 Jan, 2014 [facility] [place] [facility] [address] [id number] [place] [address]- 3197 Jan, [facility] [place] [facility] [address] [id number] [place] [address]- 4565 15 Dec, 2013 [facility] [place] [facility] [address] [id number] [place] [address]- 7204 Dec, [facility] [place] [facility] [address] [id number] [place] [address]- 6855 Nov, [facility] [place] [facility] [address] [id number] [place] [address]- 1469 Nov, [facility] [place] [facility] [address] [id number] [place] [address]- 3526 Nov, [facility] [place] [facility] [address] [id number] [place] [address]- 7844 Nov, [facility] [place] [facility] [address] [id number] [place] [address]- 5867 Nov, [facility] [place] [facility] [address] [id number] [place] [address]- 4518 Nov, [facility] [place] [facility] [address] [id number] [place] [address]- 5950 Nov, [facility] [place] [facility] [address] [id number] [place] [address]- 3599 Nov, [facility] [place] [facility] [address] [id number] [place] [address]- 2139 Nov, [facility] [place] [facility] [address] [id number] [place] [address]- 8411 Oct, [facility] [place] [facility] [address] [id number] [place] [address]- 9039 Oct, [facility] [place] [facility] [address] [id number] [place] [address]- 9396 Oct, [facility] [place] [facility] [address] [id number] [place] [address]- 7424 Oct, [facility] [place] [facility] [address] [id number] [place] [address]- 9831 Oct, [facility] [place] [facility] [address] [id number] [place] [address]- 4247 Oct, [facility] [place] [facility] [address] [id number] [place] [address]- 4334 Oct, 2013 [facility] [place] [facility] [address] [id number] [place] [address]- 5232 16 Oct, 2013 [facility] [place] [facility] [address] [id number] [place] [address]- 2675 Oct, 2013 [facility] [place] [facility] [address] [id number] [place] [address]- 4711 Oct, 2013 [facility] [place] [facility] [address] [id number] [place] [address]- 0246 Oct, 2013 [facility] [place] [facility] [address] [id number] [place] [address]- 3102 Oct, 2013 [facility] [place] [facility] [address] [id number] [place] [address]- 8636 Oct, 2013 [facility] [place] [facility] [address] [id number] [place] [address]- 8995 Oct, [facility] [place] [facility] [address] [id number] [place] [address]- 7979 Oct, [facility] [place] [facility] [address] [id number] [place] [address]- 6939 Oct, [facility] [place] [facility] [address] [id number] [place] [address]- 7472 Oct, [facility] [place] [facility] [address] [id number] [place] [address]- 6907 Oct, [facility] [place] [facility] [address] [id number] [place] [address]- 3579 Oct, [facility] [place] [facility] [address] [id number] [place] [address]- 7901 Sep, [facility] [place] [facility] [address] [id number] [place] [address]- 9111 Sep, [facility] [place] [facility] [address] [id number] [place] [address] Sep, [facility] [place] [facility] [address] [id number] [place] [address] Sep, [facility] [address] [id number] [place] [address] Feb, [facility] [place] [facility] [address] [id number] [place] [address] Feb, [facility] [place] [facility] [address] [id number] [place] [address] Dec, [facility] [place] [facility] [address] [id number] [place] [address] Dec, [facility] [place] [facility] [address] [id number] [place] [address] Nov, [facility] [place] [facility] [address] [id number] [place] [address] Nov, [facility] [place] [facility] [address] [id number] [place] [address] Nov, [facility] [place] [facility] [address] [id number] [place] [address] Nov, [facility] [place] [facility] [address] [id number] [place] [address] Nov, [facility] [place] [facility] [address] [id number] [place] [address] Nov, [facility] [place] [facility] [address] [id number] [place] [address] Oct, [facility] [place] [facility] [address] [id number] [place] [address] Apr, [facility] [place] [facility] [address] [id number] [place] [address] August, [facility] [place] [facility] [address] [id number] [place] [address] August, [facility] [place] [facility] [address] [id number] [place] [address] August, [facility] [place] [facility] [address] [id number] [place] [address] Jul, [facility] [place] [facility] [address] [id number] [place] [address] Jun, [facility] [place] [facility] [address] [id number] [place] [address] Jun, [facility] [place] [facility] [address] [id number] [place] [address] Jun, [facility] [place] [facility] [address] [id number] [place] [address] Jun, [facility] [place] [facility] [address] [id number] [place] [address] Jun, [facility] [place] [facility] [address] [id number] [place] [address] Jun, [facility] [place] [facility] [address] [id number] [place] [address] May, [facility] [place] [facility] [address] [id number] [place] [address] May, [facility] [place] [facility] [address] [id number] [place] [address] May, [facility] [place] [facility] [address] [id number] [place] [address] May, [facility] [place] [facility] [address] [id number] [place] [address] May, [facility] [place] [facility] [address] [id number] [place] [id number] May, [facility] [place] [facility] [address] [id number] [place] [address] Apr, [facility] [place] [facility] [address] [id number] [place] [address] Mar, [facility] [place] [facility] [id number] [address] Mar, [facility] [id number] [address] Feb, [facility] [id number] [address] Jan, [facility] [id number] [address] Mar, [facility] [id number] [place] [address] Mar, [facility] [id number] [place] [address] Mar, [facility] [id number] [address] Mar, [facility] [address] [place] [address] Mar, [facility] [id number] [place] [address] Feb, [facility] [id number] [address] Feb, [facility] [id number] [address] Nov, [facility] [id number] [address] May, IMMUNIZATIONS No Known Immunizations SOCIAL HISTORY Never Assessed REASON FOR VISIT Follow-up PTSD/Bipolar Disorder PLAN OF CARE Activity Details Follow Up 1 Week Reason: Follow-up VITAL SIGNS MEDICATIONS Unknown Medications RESULTS No Results PROCEDURES Procedure Date Ordered Result Body Site Psychotherapy, patient &/family, 45 minutes, established patient Dec 24, 2016 INSTRUCTIONS MEDICATIONS ADMINISTERED No Known Medications MEDICAL (GENERAL) HISTORY Type Description Date Medical History HELP syndrome Medical History bi-polar Medical History hypertension Medical History hx of seizure x1, isolated Surgical History gallbladder 10/2013 Surgical History 03/2014 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
--- OUTSIDE RECORDS SUMMARY | 2017-12-25 20:22 | XMS REPORT ---
Author Author LEEANNA JOSEPH Organization [employer] Address Unknown Phone Unavailable Care Team Providers Care Track Service Worker Name Role Phone LEEANNA JOSEPH CP Unavailable Allergies, Adverse Reactions, Alerts Substance Reaction Event Type Azithromycin hives Drug Allergy ORAGEL Info Not Available Non Drug Allergy Problems Problem Type Condition Code Onset Dates Condition Status Problem Bipolar affective disorder, remission status unspecified F31.9 Active Assessment Pharyngitis, unspecified etiology J02.9 Active Problem Depression, unspecified depression type F32.9 Active Medications Medication Code System Code Instructions Start Date End Date Status Dosage Amoxicillin [facility] [address]-78 500 MG Orally 3 times a day Jan 31, 2016 Feb 10, 2016 1 capsule Mirena [facility] [address]-21 20 MCG/24HR Intrauterine not defined Procedures Procedure Coding System Code Date Office Visit, Est Pt., Level 3 CPT-4 50604 Jan 31, 2016 Vital Signs Date/Time: Jan 31, 2016 Cardiac Monitoring Heart Rate 88 bpm Weight 259.6 lbs Height 64 in BMI 44.56 Index Blood Pressure Diastolic 84 mmHg Blood Pressure Systolic 126 mmHg Results No Known Results Summary Purpose [employer] Submission
--- OUTSIDE RECORDS SUMMARY | 2017-12-25 20:22 | XMS REPORT ---
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 Name Role Phone OLY DURBIN Unavailable PROBLEMS Type Condition ICD9-CM Code UBE14-VC Code Onset Dates Condition Status SNOMED Code Problem Bipolar I disorder with depression F31.9 Active 11913741 Problem Amenorrhea N91.2 Active 67544827 Problem Social anxiety disorder F40.10 Active 15032242 Problem Obsessive-compulsive disorder, unspecified type F42.9 Active 197132579 Problem PTSD (post-traumatic stress disorder) F43.10 Active 76308952 Problem Mood disorder F39 Active 98700457 Problem 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 Active 92416358 ALLERGIES No Information ENCOUNTERS Encounter Location Date Diagnosis [facility] [id number] [place] [address] 81042- 1528 Nov, [facility] [id number] [place] [address] 60745- 4947 Nov, [facility] [id number] [place] [address] 06346- 3302 Oct, [facility] [id number] [place] [address] 00599- 3535 Oct, [facility] [id number] [place] [address] 43791- 5702 Oct, [facility] [id number] [place] [address] 50236- 5608 Sep, Bipolar I disorder with depression F31.9 [facility] [id number] [place] [address] 47147- 4680 Sep, Bipolar I disorder with depression F31.9 ; PTSD (post- traumatic stress disorder) F43.10 ; 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 ; Social anxiety disorder F40.10 and BMI 50.0-59.9, adult Z68.43 [facility] [id number] [place] [address] 98628- 3845 Sep, PTSD (post-traumatic stress disorder) F43.10 and Bipolar I disorder with depression F31.9 [facility] [id number] [place] [address] 91832- 9598 Sep, PTSD (post-traumatic stress disorder) F43.10 and Bipolar I disorder with depression F31.9 [facility] [id number] [place] [address] 26935- 6865 August, PTSD (post-traumatic stress disorder) F43.10 and Bipolar I disorder with depression F31.9 [facility] [id number] [place] [address] 62345- 9670 August, Bipolar I disorder with depression F31.9 ; PTSD (post- traumatic stress disorder) F43.10 ; 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 ; Social anxiety disorder F40.10 and BMI 50.0-59.9, adult Z68.43 [facility] [id number] [place] [address] 48550- 2301 August, [facility] [id number] [place] [address] 98018- 3158 August, Bipolar I disorder with depression F31.9 ; PTSD (post- traumatic stress disorder) F43.10 ; 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 ; Social anxiety disorder F40.10 and BMI 50.0-59.9, adult Z68.43 [facility] [id number] [place] [address] 75168- 9500 August, [facility] [id number] [place] [address] 31834- 9689 August, [facility] [id number] [place] [address] 82970- 8688 August, PTSD (post-traumatic stress disorder) F43.10 and Bipolar I disorder with depression F31.9 [facility] [id number] [place] [address] 68528- 2807 August, [facility] [id number] [place] [address] 35051- 8734 Jul, Bipolar I disorder with depression F31.9 ; PTSD (post- traumatic stress disorder) F43.10 ; 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 ; Social anxiety disorder F40.10 and BMI 50.0-59.9, adult Z68.43 [facility] [id number] [place] [address] 34343- 6912 Jul, PTSD (post-traumatic stress disorder) F43.10 and Bipolar I disorder with depression F31.9 [facility] [id number] [place] [address] 87513- 5769 Jul, Pelvic pain R10.2 ; Amenorrhea N91.2 and BMI 50.0-59.9, adult Z68.43 [facility] [id number] [place] [address] 63429- 0934 Jun, BMI 50.0-59.9, adult Z68.43 ; Bipolar I disorder with depression F31.9 ; PTSD (post-traumatic stress disorder) F43.10 and 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 [facility] [id number] [place] [address] 52092 -5863 Jun, Other viral agents as the cause of diseases classified elsewhere B97.89 ; Other specified respiratory disorders J98.8 ; Bronchitis J40 and Cough R05 [facility] [id number] [place] [address] 89750- 9372 Jun, PTSD (post-traumatic stress disorder) F43.10 [facility] [id number] [place] [address] 64982- 5800 Jun, PTSD (post-traumatic stress disorder) F43.10 and Bipolar I disorder with depression F31.9 [facility] [address], [place] [address]- 8766 13 May, 2017 PTSD (post-traumatic stress disorder) F43.10 and Bipolar I disorder with depression F31.9 [facility] [address] [address]- 2219 12 May, 2017 [facility] [address] [place] [address]- 7658 07 May, 2017 PTSD (post-traumatic stress disorder) F43.10 and Bipolar I disorder with depression F31.9 [facility] [address] [address]- 9886 Apr, PTSD (post-traumatic stress disorder) F43.10 and Bipolar I disorder with depression F31.9 [facility] [address] [address]- 9688 Apr, PTSD (post-traumatic stress disorder) F43.10 and Bipolar I disorder with depression F31.9 [facility] [address] [address]- 0258 Mar, PTSD (post-traumatic stress disorder) F43.10 ; Obsessive- compulsive disorder, unspecified type F42.9 ; Bipolar I disorder with depression F31.9 and Other residential (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.899 [facility] [address], [place] [address]- 2549 Mar, PTSD (post-traumatic stress disorder) F43.10 and Bipolar I disorder with depression F31.9 [facility] [address], [place] [address]- 9426 Feb, PTSD (post-traumatic stress disorder) F43.10 and Bipolar I disorder with depression F31.9 [facility] [id number] [address]- 0659 Feb, PTSD (post-traumatic stress disorder) F43.10 and Bipolar I disorder with depression F31.9 [facility] [address], [place] [address] Jan, Strep pharyngitis J02.0 [facility] [id number] [place] [address] 97130- 8404 Jan, [facility] [address] [address]- 2128 Jan, [facility] [id number] [place] [address] 30729- 3423 Jan, PTSD (post-traumatic stress disorder) F43.10 and Bipolar I disorder with depression F31.9 [facility] [id number] [place] [address] 69316- 5311 Jan, PTSD (post-traumatic stress disorder) F43.10 and Bipolar I disorder with depression F31.9 [facility] [id number] [place] [address] 26633- 7733 Jan, 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 [facility] [id number] [place] [address] 90827- 8319 02 Jan, 2017 PTSD (post-traumatic stress disorder) F43.10 ; Obsessive- compulsive disorder, unspecified type F42.9 ; Bipolar I disorder with depression F31.9 and Other residential (current) drug therapy Z79.899 [facility] [id number] [place] [address] 30317- 5897 Dec, Encounter for IUD removal Z30.432 and control counseling Z30.09 [facility] [id number] [place] [address] 32127- 9428 Dec, PTSD (post-traumatic stress disorder) F43.10 ; Obsessive- compulsive disorder, unspecified type F42.9 and Bipolar I disorder with depression F31.9 [facility] [address] [address]- 7910 Dec, PTSD (post-traumatic stress disorder) F43.10 and Bipolar I disorder with depression F31.9 [facility] [id number], [place] [address]- 9002 12 Dec, 2016 PTSD (post-traumatic stress disorder) F43.10 and Bipolar I disorder with depression F31.9 [facility] [id number], [place] [address]- 0153 11 Dec, 2016 Mood disorder F39 [facility] [id number] [place] [address] 90241- 5248 08 Dec, 2016 PTSD (post-traumatic stress disorder) F43.10 ; Mood disorder F39 and Obsessive-compulsive disorder, unspecified type F42.9 [facility] [id number] [place] [address] 31758- 4811 07 Dec, 2016 PTSD (post-traumatic stress disorder) F43.10 and Bipolar I disorder with depression F31.9 [facility] [id number] [place] [address] 75397 -9112 Dec, Adverse drug reaction, initial encounter T88.7XXA [facility] [id number] [place] [address] 91587- 5253 Dec, [facility] [id number] [place] [address] 85789- 2290 Nov, PTSD (post-traumatic stress disorder) F43.10 and Bipolar I disorder with depression F31.9 [facility] [address], [place] [address]- 1255 Nov, PTSD (post-traumatic stress disorder) F43.10 ; Mood disorder F39 and Obsessive-compulsive disorder, unspecified type F42.9 [facility] [id number] [place] [address] 61305- 8914 Nov, PTSD (post-traumatic stress disorder) F43.10 and Bipolar I disorder with depression F31.9 [facility] [id number], [place] [address]- 4930 Nov, PTSD (post-traumatic stress disorder) F43.10 and Bipolar I disorder with depression F31.9 [facility] [address] [facility] [id number] [address] Nov, [facility] [address] [facility] [id number] [place] [address] 88835 2546 Nov, PTSD (post-traumatic stress disorder) F43.10 and Bipolar I disorder with depression F31.9 [facility] [id number] [place] [address] 78181- 8646 Nov, PTSD (post-traumatic stress disorder) F43.10 and Bipolar I disorder with depression F31.9 [facility] [address] [facility] [id number] [place] [address] 82267- 8006 Oct, [facility] [address] [facility] [id number], [place] [address]- 0816 Oct, PTSD (post-traumatic stress disorder) F43.10 ; Mood disorder F39 and Obsessive-compulsive disorder, unspecified type F42.9 [facility] [id number] [address]- 2015 Oct, PTSD (post-traumatic stress disorder) F43.10 and Bipolar I disorder with depression F31.9 [facility] [address] [facility] [id number], [place] [address]- 6395 Oct, PTSD (post-traumatic stress disorder) F43.10 and Bipolar I disorder with depression F31.9 [facility] [id number], [place] [address]- 3467 Oct, PTSD (post-traumatic stress disorder) F43.10 ; Mood disorder F39 and Obsessive-compulsive disorder, unspecified type F42.9 [facility] [address] [facility] [id number], [place] [address]- 4126 Oct, [facility] [address] [facility] [id number], [place] [address]- 6076 Oct, PTSD (post-traumatic stress disorder) F43.10 and Bipolar I disorder with depression F31.9 [facility] [address], [place] [address]- 3090 Oct, PTSD (post-traumatic stress disorder) F43.10 ; Mood disorder F39 and Obsessive-compulsive disorder, unspecified type F42.9 [facility] [address], [place] [address]- 6494 Sep, PTSD (post-traumatic stress disorder) F43.10 and Bipolar I disorder with depression F31.9 [facility] [id number] [place] [address] 86407- 0180 Sep, PTSD (post-traumatic stress disorder) F43.10 ; Mood disorder F39 and Obsessive-compulsive disorder, unspecified type F42.9 [facility] [address], [place] [address]- 9560 Sep, PTSD (post-traumatic stress disorder) F43.10 and Bipolar I disorder with depression F31.9 [facility] [id number] [place] [address] 83146- 9681 Sep, PTSD (post-traumatic stress disorder) F43.10 and Bipolar I disorder with depression F31.9 [facility] [id number] [place] [address] 64839- 6272 August, PTSD (post-traumatic stress disorder) F43.10 and Bipolar I disorder with depression F31.9 [facility] [address], [place] [address] -[address]678 August, Pharyngitis due to other organism J02.8 [facility] [address], [place] [address]- 1837 August, PTSD (post-traumatic stress disorder) F43.10 ; Bipolar 1 disorder, mixed F31.60 and 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 [facility] [address], [place] [address]- 6350 August, PTSD (post-traumatic stress disorder) F43.10 and Bipolar I disorder with depression F31.9 [facility] [address], [place] [address] 2546 Jul, PTSD (post-traumatic stress disorder) F43.10 and Bipolar I disorder with depression F31.9 [facility] [address], [place] [address] 2546 Jul, PTSD (post-traumatic stress disorder) F43.10 and Bipolar I disorder with depression F31.9 [facility] [address], [place] [address] 2546 Jul, PTSD (post-traumatic stress disorder) F43.10 and Bipolar I disorder with depression F31.9 [facility] [address] [place] [address] 57694 2546 Jul, 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 [place] [id number] [place] [address] 59302- 9605 Jun, PTSD (post-traumatic stress disorder) F43.10 and Bipolar I disorder with depression F31.9 [facility] [id number] [place] [address] 91453 2544 Jun, Bipolar 1 disorder, mixed F31.60 ; PTSD (post-traumatic stress disorder) F43.10 and 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 [facility] [address], [place] [address]- 2319 Jun, PTSD (post-traumatic stress disorder) F43.10 and Depression , unspecified depression type F32.9 [facility] [id number], [place] [address]- 3966 Jun, PTSD (post-traumatic stress disorder) F43.10 and Depression , unspecified depression type F32.9 [facility] [id number], [place] [address]- 5696 Jun, PTSD (post-traumatic stress disorder) F43.10 and Depression , unspecified depression type F32.9 [facility] [id number] [place] [address] 83081 -4236 May, Fever, unspecified fever cause R50.9 and Gastroenteritis K52.9 [facility] [id number] [place] [address] 17783- 6867 Mar, Sprain of other ligament of right ankle, subsequent encounter S93.491D [place] [facility] [address] 56902- 5836 Mar, [facility] [id number] [place] [address] 67166 -6524 Feb, Scabies infestation B86 [place] [facility] [id number] [place] [address] 48176- 2517 Feb, Dental caries K02.9 [place] [facility] [address] 12781- 4862 Jan, [facility] [id number] [place] [address] 61030 -7197 Jan, Pharyngitis, unspecified etiology J02.9 [place] [id number] [place] [address] 59107- 0340 Jan, [place] [facility] [id number] [place] [address] 76355- 5058 Jan, Bipolar affective disorder, remission status unspecified F31.9 [place] [id number] [place] [address] 86647- 4962 Jan, Encounter for dental examination and cleaning without abnormal findings Z01.20 [facility] [address] 17735- 4603 Jan, Bipolar affective disorder, remission status unspecified F31.9 [place] [id number] [place] [address] 32180- 2108 Dec, Bipolar affective disorder, remission status unspecified F31.9 and Depression, unspecified depression type F32.9 [facility] [id number] [place] [address] 73466- 5644 12 Dec, 2016 Unspecified mood [affective] disorder F39 and Generalized anxiety disorder F41.1 [facility] [id number] [place] [address] 97687- 8007 08 Dec, 2015 Depression, unspecified depression type F32.9 [facility] [address] 74797- 9030 30 Nov, 2015 Dental caries K02.9 [place] [address] 65277- 9495 Nov, Dental examination Z01.20 [place] [address] 99462- 8123 Sep, Bipolar affective disorder, remission status unspecified F31.9 [place] [address] 60070- 7189 August, Tension headache G44.209 [facility] [address] 29404 -6656 Jul, [facility] [address] 85753 -4042 Jul, Upper respiratory infection J06.9 and Gastroenteritis K52.9 [place] [address] 06250- 7299 Jun, Bronchitis J40 [facility] [address] 68053 -0862 Feb, Thoracic back pain M54.6 and Left shoulder pain M25.512 [place] [address] 65838- 5237 Feb, [place] [address] 20984- 0691 14 Jul, 2014 [place] [address] 30678- 5613 Jul, [facility] [place] [facility] [address] [id number] [place] [address]- 3362 Apr, [facility] [place] [facility] [address] [id number] [place] [address]- 8454 Apr, [facility] [place] [facility] [address] [id number] [place] [address]- 5899 Apr, [facility] [place] [facility] [address] [id number] [place] [address]- 8945 Apr, [facility] [place] [facility] [address] [id number] [place] [address]- 3769 Mar, [facility] [place] [facility] [address] [id number] [place] [address]- 3529 Mar, [facility] [place] [facility] [address] [id number] [place] [address]- 8105 Mar, [facility] [place] [facility] [address] [id number] [place] [address]- 8052 Mar, [facility] [place] [facility] [address] [id number] [place] [address]- 7117 Feb, [facility] [place] [facility] [address] [id number] [place] [address]- 8580 Feb, [facility] [place] [facility] [address] [id number], [place] [address]- 1946 Feb, [facility] [place] [facility] [address] [id number], [place] [address]- 1883 Feb, [facility] [place] [facility] [address] [id number] [place] [address]- 1207 Jan, [facility] [place] [facility] [address] [id number] [place] [address]- 5581 15 Jan, 2014 [facility] [place] [facility] [address] [id number] [place] [address]- 9276 14 Jan, 2014 [facility] [place] [facility] [address] [id number] [place] [address]- 5466 14 Jan, 2014 [facility] [place] [facility] [address] [id number] [place] [address]- 5250 Jan, [facility] [place] [facility] [address] [id number] [place] [address]- 7027 Jan, [facility] [place] [facility] [address] [id number] [place] [address]- 4851 Dec, [facility] [place] [facility] [address] [id number] [place] [address]- 1489 Dec, [facility] [place] [facility] [address] [id number] [place] [address]- 5776 Nov, [facility] [place] [facility] [address] [id number] [place] [address]- 1151 Nov, [facility] [place] [facility] [address] [id number] [place] [address]- 9866 Nov, [facility] [place] [facility] [address] [id number] [place] [address]- 5351 Nov, [facility] [place] [facility] [address] [id number] [place] [address]- 9577 Nov, [facility] [place] [facility] [address] [id number] [place] [address]- 1130 Nov, [facility] [place] [facility] [address] [id number] [place] [address]- 0089 Nov, [facility] [place] [facility] [address] [id number] [place] [address]- 3566 Nov, [facility] [place] [facility] [address] [id number] [place] [address]- 1360 Nov, [facility] [place] [facility] [address] [id number] [place] [address]- 6082 Oct, [facility] [place] [facility] [address] [id number] [place] [address]- 0203 Oct, [facility] [place] [facility] [address] [id number] [place] [address]- 4781 Oct, 2013 [facility] [place] [facility] [address] [id number] [place] [address]- 5506 Oct, 2013 [facility] [place] [facility] [address] [id number] [place] [address]- 1407 Oct, 2013 [facility] [place] [facility] [address] [id number] [place] [address]- 5112 Oct, 2013 [facility] [place] [facility] [address] [id number] [place] [address]- 9663 Oct, 2013 [facility] [place] [facility] [address] [id number] [place] [address]- 2814 Oct, 2013 [facility] [place] [facility] [address] [id number] [place] [address]- 1078 Oct, [facility] [place] [facility] [address] [id number] [place] [address]- 7866 Oct, 2013 [facility] [place] [facility] [address] [id number] [place] [address]- 3628 Oct, 2013 [facility] [place] [facility] [address] [id number] [place] [address]- 7308 Oct, [facility] [place] [facility] [address] [id number] [place] [address] Oct, [facility] [place] [facility] [address] [id number] [place] [address] Oct, [facility] [place] [facility] [address] [id number] [place] [address] Oct, [facility] [place] [facility] [address] [id number] [place] [address] Oct, [facility] [place] [facility] [address] [id number] [place] [address] Oct, 2013 [facility] [place] [facility] [address] [id number] [place] [address] Oct, [facility] [place] [facility] [address] [id number] [place] [address] Oct, [facility] [place] [facility] [address] [id number] [place] [address] Sep, [facility] [place] [facility] [address] [id number] [place] [address] Sep, [facility] [place] [facility] [address] [id number] [place] [address] Sep, [facility] [place] [facility] [address] [id number] [place] [address] Sep, [facility] [place] [facility] [address] [id number] [place] [address] Feb, [facility] [place] [facility] [address] [id number] [place] [address] Feb, [facility] [place] [facility] [address] [id number] [place] [address] Dec, [facility] [place] [facility] [address] [id number] [place] [address] Dec, [facility] [place] [facility] [address] [id number] [place] [address] Nov, [facility] [place] [facility] [address] [id number] [place] [address] Nov, [facility] [place] [facility] [address] [id number] [place] [address] Nov, [facility] [place] [facility] [address] [id number] [place] [address] Nov, [facility] [place] [facility] [address] [id number] [place] [address] Nov, [facility] [place] [facility] [address] [id number] [place] [address] Nov, [facility] [place] [facility] [address] [id number] [place] [address] Oct, [facility] [place] [facility] [address] [id number] [place] [address] Apr, [facility] [place] [facility] [address] [id number] [place] [address] August, [facility] [place] [facility] [address] [id number] [place] [address] August, [facility] [place] [facility] [address] [id number] [place] [address] August, [facility] [place] [facility] [address] [id number] [place] [address] Jul, [facility] [place] [facility] [address] [id number] [place] [address] Jun, [facility] [place] [facility] [address] [id number] [place] [address] Jun, [facility] [place] [facility] [address] [id number] [place] [address] Jun, [facility] [place] [facility] [address] [id number] [place] [address] Jun, [facility] [place] [facility] [address] [id number] [place] [address] Jun, [facility] [place] [facility] [address] [id number] [place] [address] Jun, [facility] [place] [facility] [address] [id number] [place] [address] May, [facility] [place] [facility] [address] [id number] [place] [address] May, [facility] [place] [facility] [address] [id number] [place] [address] May, [facility] [place] [facility] [address] [id number], [place] [address] 07 May, 2011 [facility] [address] [id number] [place] [address] May, [facility] [address] [id number], [place] [address] 06 May, 2011 [facility] [address] [facility] [id number] [place] [address] Apr, [facility] [address] [id number], [place] [address] 07 Mar, 2011 [facility] [address] [id number] [place] [address] Mar, [facility] [address] [facility] [id number] [place] [address] Feb, [facility] [address] [facility] [id number], [place] [address] Jan, [facility] [address] [facility] [id number] [place] [address] 31 Mar, 2009 [facility] [address] [facility] [id number], [place] [address] 15 Mar, 2009 [facility] [place] [facility] [address] [facility] [id number], [place] [address] Mar, [facility] [address] [facility] [id number], [place] [address] Mar, [facility] [place] [facility] [address] [facility] [id number], [place] [address] 02 Mar, 2009 [facility] [place] [facility] [address] [facility] [id number], [place] [address] 16 Feb, 2009 [facility] [place] [facility] [address] [facility] [id number], [place] [address] 02 Feb, 2009 [facility] [place] [facility] [address] [facility] [id number], [place] [address] 17 Nov, 2008 [facility] [place] [facility] [address] [facility] [id number] [place] [address] 10 May, 2008 IMMUNIZATIONS No Known Immunizations SOCIAL HISTORY Never Assessed REASON FOR VISIT Follow-up PTSD/Bipolar Disorder PLAN OF CARE Activity Details Follow Up 2 Weeks Reason: Follow-up VITAL SIGNS MEDICATIONS Unknown Medications RESULTS No Results PROCEDURES Procedure Date Ordered Result Body Site Psychotherapy, patient &/family, 45 minutes, established patient May 27, 2017 INSTRUCTIONS MEDICATIONS ADMINISTERED No Known Medications MEDICAL (GENERAL) HISTORY Type Description Date Medical History HELP syndrome Medical History bi-polar Medical History hypertension Medical History hx of seizure x1, isolated Surgical History gallbladder 10/2013 Surgical History 03/2014 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
--- OUTSIDE RECORDS SUMMARY | 2017-12-25 20:22 | XMS REPORT ---
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 Active 15966622 Problem PTSD (post-traumatic stress disorder) F43.10 Active 93765433 Problem Obsessive-compulsive disorder, unspecified type F42.9 Active [id number] Problem Bipolar I disorder with depression F31.9 Active [id number] ALLERGIES No Information SOCIAL HISTORY Never Assessed PLAN OF CARE Activity Details Follow Up 1 Week Reason: Follow-up VITAL SIGNS MEDICATIONS Unknown Medications RESULTS No Results PROCEDURES Procedure Date Ordered Result Body Site Psychotherapy, patient &/family, 45 minutes, established patient July 03, 2016 IMMUNIZATIONS No Known Immunizations MEDICAL (GENERAL) HISTORY Type Description Date Medical History HELP syndrome Medical History bi-polar Medical History hypertension Medical History hx of seizure x1, isolated Surgical History gallbladder 10/2013 Surgical History 03/2014 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
--- OUTSIDE RECORDS SUMMARY | 2017-12-25 20:23 | XMS REPORT ---
Author Author OLY DURBIN [facility] Address [address] [place] [address] Care Team Providers Care Talent Development Manager Name Role Phone OLY DURBIN Unavailable PROBLEMS Type Condition ICD9-CM Code RME94-MY Code Onset Dates Condition Status SNOMED Code Problem Bipolar I disorder with depression F31.9 Active 19557903 Problem Amenorrhea N91.2 Active 21356711 Problem Social anxiety disorder F40.10 Active 69055771 Problem Obsessive-compulsive disorder, unspecified type F42.9 Active 298666685 Problem PTSD (post-traumatic stress disorder) F43.10 Active 51530072 Problem Mood disorder F39 Active 15607160 Problem 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 Active 46501767 ALLERGIES No Information ENCOUNTERS Encounter Location Date Diagnosis [place] [id number] [place] [address] 49663- 6552 Nov, [place] [address] [place] [id number] [place] [address] 28726- 7404 Nov, [place] [id number] [place] [address] 15859- 7587 Oct, [place] [id number] [place] [address] 65674- 3289 Oct, [place] [address] [place] [id number] [place] [address] 79868- 4745 Sep, Bipolar I disorder with depression F31.9 [facility] [address] [place] [id number] [place] [address] 43376- 5913 Sep, Bipolar I disorder with depression F31.9 ; PTSD (post- traumatic stress disorder) F43.10 ; 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 ; Social anxiety disorder F40.10 and BMI 50.0-59.9, adult Z68.43 [place] [address] [address] 2844 Sep, PTSD (post-traumatic stress disorder) F43.10 and Bipolar I disorder with depression F31.9 [place] [address] [address] 4952 Sep, PTSD (post-traumatic stress disorder) F43.10 and Bipolar I disorder with depression F31.9 [place] [address] [place] [id number] [place] [address] 18649- 3324 August, PTSD (post-traumatic stress disorder) F43.10 and Bipolar I disorder with depression F31.9 [place] [address] [place] [id number] [place] [address] 15624- 7398 August, Bipolar I disorder with depression F31.9 ; PTSD (post- traumatic stress disorder) F43.10 ; 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 ; Social anxiety disorder F40.10 and BMI 50.0-59.9, adult Z68.43 [place] [address] [address] 9862 August, [place] [address] [place] [id number] [place] [address] 47135- 8392 August, Bipolar I disorder with depression F31.9 ; PTSD (post- traumatic stress disorder) F43.10 ; 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 ; Social anxiety disorder F40.10 and BMI 50.0-59.9, adult Z68.43 [place] [address] [address]- 5948 August, [place] [address] [place] [id number] [place] [address] 47208- 4867 August, [place] [address] [address]- 3229 August, PTSD (post-traumatic stress disorder) F43.10 and Bipolar I disorder with depression F31.9 [place] [address] [place] [address] [id number] [address] 2198 August, [facility] [address] [place] [id number] [place] [address] 40151- 0827 Jul, Bipolar I disorder with depression F31.9 ; PTSD (post- traumatic stress disorder) F43.10 ; 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 ; Social anxiety disorder F40.10 and BMI 50.0-59.9, adult Z68.43 [place] [address] [place] [id number] [place] [address] 08744- 0649 Jul, PTSD (post-traumatic stress disorder) F43.10 and Bipolar I disorder with depression F31.[address] 24575- 8995 Jul, Pelvic pain R10.2 ; Amenorrhea N91.2 and BMI 50.0-59.9, adult Z68.43 [place] [address] [place] [id number] [place] [address] 39232- 2390 Jun, BMI 50.0-59.9, adult Z68.43 ; Bipolar I disorder with depression F31.9 ; PTSD (post-traumatic stress disorder) F43.10 and 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 [facility] [address] [place] [address] 15190 -4265 Jun, Other viral agents as the cause of diseases classified elsewhere B97.89 ; Other specified respiratory disorders J98.8 ; Bronchitis J40 and Cough R05 [id number] [place] [address] 65462- 4629 Jun, PTSD (post-traumatic stress disorder) F43.10 [place] [id number] [place] [address] 87644- 0399 Jun, PTSD (post-traumatic stress disorder) F43.10 and Bipolar I disorder with depression F31.9 [place] [id number] [place] [address] 53939- 0683 May, PTSD (post-traumatic stress disorder) F43.10 and Bipolar I disorder with depression F31.9 [facility] [id number] [place] [address] 98166- 0582 May, [place] [address] [place] [id number] [place] [address] 83434- 1729 07 May, 2017 PTSD (post-traumatic stress disorder) F43.10 and Bipolar I disorder with depression F31.9 [place] [address] [place] [id number] [place] [address] 04180- 3645 Apr, PTSD (post-traumatic stress disorder) F43.10 and Bipolar I disorder with depression F31.9 [place] [address] [place] [id number] [place] [address] 83654- 1309 Apr, PTSD (post-traumatic stress disorder) F43.10 and Bipolar I disorder with depression F31.9 [place] [address] [place] [id number] [place] [address] 49593- 9791 Mar, PTSD (post-traumatic stress disorder) F43.10 ; Obsessive- compulsive disorder, unspecified type F42.9 ; Bipolar I disorder with depression F31.9 and 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 [id number] [place] [address] 76887 -0369 Jan, Strep pharyngitis J02.0 [place] [id number] [place] [address] 03839- 4741 16 Jan, 2017 [place] [address] [place] [id number] [place] [address] 19449- 4987 Jan, [place] [address] [place] [id number] [place] [address] 45785- 4738 Jan, PTSD (post-traumatic stress disorder) F43.10 and Bipolar I disorder with depression F31.9 [place] [address] [place] [id number] [place] [address] 71648- 8074 Jan, PTSD (post-traumatic stress disorder) F43.10 and Bipolar I disorder with depression F31.9 [place] [address] [place] [id number] [place] [address] 66048- 2641 Jan, 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 [place] [address] [place] [id number] [place] [address] 83003- 1802 Jan, PTSD (post-traumatic stress disorder) F43.10 ; Obsessive- compulsive disorder, unspecified type F42.9 ; Bipolar I disorder with depression F31.9 and 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 [place] [address] [place] [address] 70107- 6246 Dec, Encounter for IUD removal Z30.432 and control counseling Z30.09 [place] [address] [place] [id number] [place] [address] 49270- 0760 Dec, PTSD (post-traumatic stress disorder) F43.10 ; Obsessive- compulsive disorder, unspecified type F42.9 and Bipolar I disorder with depression F31.9 [place] [address] [place] [id number] [place] [address] 45245- 2211 Dec, PTSD (post-traumatic stress disorder) F43.10 and Bipolar I disorder with depression F31.9 [place] [address] [place] [id number] [place] [address] 21211- 3600 Dec, PTSD (post-traumatic stress disorder) F43.10 and Bipolar I disorder with depression F31.9 [facility] [address] [address]- 8929 11 Dec, 2016 Mood disorder F39 [facility] [address] [address]- 5646 08 Dec, 2016 PTSD (post-traumatic stress disorder) F43.10 ; Mood disorder F39 and Obsessive-compulsive disorder, unspecified type F42.9 [facility] [address] [address]- 0193 07 Dec, 2016 PTSD (post-traumatic stress disorder) F43.10 and Bipolar I disorder with depression F31.9 [facility] [address] [address]1183 Dec, Adverse drug reaction, initial encounter T88.7XXA [facility] [address] [place] [id number] [place] [address] 14544- 5584 Dec, [facility] [address] [place] [id number] [place] [address] 14673- 7976 Nov, PTSD (post-traumatic stress disorder) F43.10 and Bipolar I disorder with depression F31.9 [facility] [address] [address]- 0313 Nov, PTSD (post-traumatic stress disorder) F43.10 ; Mood disorder F39 and Obsessive-compulsive disorder, unspecified type F42.9 [facility] [address] [address]- 5006 Nov, PTSD (post-traumatic stress disorder) F43.10 and Bipolar I disorder with depression F31.9 [facility] [address] [place] [address] 31451- 1629 Nov, PTSD (post-traumatic stress disorder) F43.10 and Bipolar I disorder with depression F31.9 [facility] [id number] [place] [address] 12508 -1424 Nov, [facility] [address] [facility] [id number] [address]- 6464 Nov, PTSD (post-traumatic stress disorder) F43.10 and Bipolar I disorder with depression F31.9 [facility] [address] [facility] [id number] [address]- 0956 Nov, PTSD (post-traumatic stress disorder) F43.10 and Bipolar I disorder with depression F31.9 [facility] [address] [facility] [id number] [address]- 2976 Oct, [facility] [address] [facility] [id number] [place] [address] 75353- 9968 Oct, PTSD (post-traumatic stress disorder) F43.10 ; Mood disorder F39 and Obsessive-compulsive disorder, unspecified type F42.9 [facility] [address] [place] [id number] [address]- 1561 Oct, PTSD (post-traumatic stress disorder) F43.10 and Bipolar I disorder with depression F31.9 [facility] [address] [facility] [id number] [address]- 9013 Oct, PTSD (post-traumatic stress disorder) F43.10 and Bipolar I disorder with depression F31.9 [facility] [address] [facility] [id number] [address]- 8847 Oct, PTSD (post-traumatic stress disorder) F43.10 ; Mood disorder F39 and Obsessive-compulsive disorder, unspecified type F42.9 [facility] [address] [facility] [id number], [place] [address]- 9131 Oct, [facility] [address] [place] [id number] [address]- 3056 Oct, PTSD (post-traumatic stress disorder) F43.10 and Bipolar I disorder with depression F31.9 [facility] [address] [facility] [id number] [address]- 7686 Oct, PTSD (post-traumatic stress disorder) F43.10 ; Mood disorder F39 and Obsessive-compulsive disorder, unspecified type F42.9 [facility] [address] [place] [id number] [place] [address] 50912- 4856 Sep, PTSD (post-traumatic stress disorder) F43.10 and Bipolar I disorder with depression F31.9 [facility] [address] [place] [id number] [place] [address] 16579- 3956 Sep, PTSD (post-traumatic stress disorder) F43.10 ; Mood disorder F39 and Obsessive-compulsive disorder, unspecified type F42.9 [facility] [address] [place] [id number] [place] [address] 77344- 1440 Sep, PTSD (post-traumatic stress disorder) F43.10 and Bipolar I disorder with depression F31.9 [facility] [address] [place] [id number] [place] [address] 04556- 6128 Sep, PTSD (post-traumatic stress disorder) F43.10 and Bipolar I disorder with depression F31.9 [facility] [address] [place] [id number] [place] [address] 95711- 8379 August, PTSD (post-traumatic stress disorder) F43.10 and Bipolar I disorder with depression F31.[address] [facility] [address] [place] [address] 71037 -9114 August, Pharyngitis due to other organism J02.8 [facility] [address] [place] [id number] [place] [address] 59848- 9643 August, PTSD (post-traumatic stress disorder) F43.10 ; Bipolar 1 disorder, mixed F31.60 and 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 [place] [address] [place] [id number] [place] [address] 00633- 5367 August, PTSD (post-traumatic stress disorder) F43.10 and Bipolar I disorder with depression F31.9 [facility] [address] [place] [id number] [place] [address] 19355- 9306 Jul, PTSD (post-traumatic stress disorder) F43.10 and Bipolar I disorder with depression F31.9 [facility] [address] [place] [address] 65413- 5978 Jul, PTSD (post-traumatic stress disorder) F43.10 and Bipolar I disorder with depression F31.9 [place] [address] [place] [id number] [place] [address] 40835- 1603 Jul, PTSD (post-traumatic stress disorder) F43.10 and Bipolar I disorder with depression F31.9 [place] [address] [place] [id number] [place] [address] 13199- 9150 Jul, 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 [place] [address] [place] [id number] [place] [address] 43266- 5310 Jun, PTSD (post-traumatic stress disorder) F43.10 and Bipolar I disorder with depression F31.9 [place] [address] [place] [id number] [place] [address] 42740- 1242 Jun, Bipolar 1 disorder, mixed F31.60 ; PTSD (post-traumatic stress disorder) F43.10 and 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 [place] [address] [place] [id number] [place] [address] 36461- 5580 Jun, PTSD (post-traumatic stress disorder) F43.10 and Depression , unspecified depression type F32.9 [place] [address] [place] [address] 26846- 5030 Jun, PTSD (post-traumatic stress disorder) F43.10 and Depression , unspecified depression type F32.9 [place] [address] [place] [id number] [place] [address] 54748- 8056 Jun, PTSD (post-traumatic stress disorder) F43.10 and Depression , unspecified depression type F32.9 [facility] [address] [place] [address] 93944 -6488 May, Fever, unspecified fever cause R50.9 and Gastroenteritis K52.9 [facility] [address] [place] [id number] [place] [address] 45710- 8436 Mar, Sprain of other ligament of right ankle, subsequent encounter S93.491D [facility] [address] [place] [id number] [place] [address] 90655- 2087 Mar, [facility] [address] [place] [id number] [place] [address] 43899 -9652 Feb, Scabies infestation B86 [place] [address] [place] [id number] [place] [address] 38012- 7074 Feb, Dental caries K02.9 [place] [address] [place] [id number] [place] [address] 74313- 6308 Jan, [facility] [address] [place] [id number] [place] [address] 91151 -5773 Jan, Pharyngitis, unspecified etiology J02.9 [facility] [address] [place] [id number] [place] [address] 49232- 9097 Jan, [place] [address] [place] [id number] [place] [address] 16400- 4955 Jan, Bipolar affective disorder, remission status unspecified F31.9 [place] [address] [place] [id number] [place] [address] 69090- 8424 Jan, Encounter for dental examination and cleaning without abnormal findings Z01.20 [facility] [address] [place] [id number] [place] [address] 40380- 1930 Jan, Bipolar affective disorder, remission status unspecified F31.9 [place] [address] [place] [id number] [place] [address] 47768- 6641 Dec, Bipolar affective disorder, remission status unspecified F31.9 and Depression, unspecified depression type F32.9 [facility] [address] [place] [id number] [place] [address] 42165- 5610 12 Sep, 2016 Unspecified mood [affective] disorder F39 and Generalized anxiety disorder F41.1 [facility] [address] [place] [id number] [place] [address] 75090- 9110 08 Dec, 2015 Depression, unspecified depression type F32.9 [facility] [address] [place] [id number] [place] [address] 59536- 7001 Nov, Dental caries K02.9 [place] [address] 66559- 2107 Nov, Dental examination Z01.20 [place] [address] 55890- 5742 Sep, Bipolar affective disorder, remission status unspecified F31.9 [place] [address] 09023- 6080 August, Tension headache G44.209 [facility] [address] 82028 -3971 Jul, [facility] [address] 14507 -7378 Jul, Upper respiratory infection J06.9 and Gastroenteritis K52.9 [place] [address] [place] [id number] [place] [address] 52478- 8844 Jun, Bronchitis J40 [facility] [address] 80859 -8000 Feb, Thoracic back pain M54.6 and Left shoulder pain M25.512 [place] [address] [place] [id number] [place] [address] 95564- 3791 05 Feb, 2015 [place] [address] 47073- 2242 14 Jul, 2014 [place] [address] 77917- 0812 13 Jul, 2014 [facility] [address] 34653- 6367 Apr, [facility] [place] [facility] [address] [id number] [place] [address]- 1828 Apr, [facility] [place] [facility] [address] [id number] [place] [address]- 9012 Apr, [facility] [place] [facility] [address] [id number] [place] [address]- 9755 Apr, [facility] [place] [facility] [address] [id number] [place] [address]- 8657 Mar, [facility] [place] [facility] [address] [id number] [place] [address]- 5612 Mar, [facility] [place] [facility] [address] [id number] [place] [address]- 5953 Mar, [facility] [place] [facility] [address] [id number] [place] [address]- 0736 Mar, [facility] [place] [facility] [address] [id number] [place] [address]- 8880 Feb, [facility] [place] [facility] [address] [id number] [place] [address]- 3032 Feb, [facility] [place] [facility] [address] [id number] [place] [address]- 1666 Feb, [facility] [place] [facility] [address] [id number], [place] [address]- 5232 Feb, [facility] [place] [facility] [address] [id number] [address]- 1911 Jan, [facility] [place] [facility] [address] [id number] [place] [address]- 3656 Jan, [facility] [place] [facility] [address] [id number] [place] [address]- 7229 Jan, [facility] [place] [facility] [address] [id number] [place] [address]- 8040 Jan, [facility] [place] [facility] [address] [id number] [place] [address]- 2610 Jan, [facility] [place] [facility] [address] [id number] [place] [address]- 8913 Jan, [facility] [place] [facility] [address] [id number] [place] [address]- 0991 Dec, [facility] [place] [facility] [address] [id number] [place] [address]- 8271 Dec, [facility] [place] [facility] [address] [id number] [place] [address]- 6349 Nov, [facility] [place] [facility] [address] [id number] [place] [address]- 4815 Nov, [facility] [place] [facility] [address] [id number] [place] [address]- 4798 Nov, [facility] [place] [facility] [address] [id number] [place] [address]- 2413 Nov, [facility] [place] [facility] [address] [id number] [place] [address]- 1888 Nov, [facility] [place] [facility] [address] [id number] [place] [address]- 4687 Nov, [facility] [place] [facility] [address] [id number] [place] [address]- 0058 Nov, [facility] [place] [facility] [address] [id number] [place] [address]- 5610 Nov, [facility] [place] [facility] [address] [id number] [place] [address]- 1005 Nov, [facility] [place] [facility] [address] [id number] [place] [address]- 8871 Oct, [facility] [place] [facility] [address] [id number] [place] [address]- 6207 Oct, [facility] [place] [facility] [address] [id number] [place] [address]- 5762 Oct, [facility] [place] [facility] [address] [id number] [place] [address]- 7547 Oct, 2013 [facility] [place] [facility] [address] [id number] [place] [address]- 6539 Oct, 2013 [facility] [place] [facility] [address] [id number] [place] [address]- 3076 Oct, 2013 [facility] [place] [facility] [address] [id number] [place] [address]- 9263 Oct, 2013 [facility] [place] [facility] [address] [id number] [place] [address]- 3943 Oct, 2013 [facility] [place] [facility] [address] [id number] [place] [address]- 4288 Oct, [facility] [place] [facility] [address] [id number] [place] [address]- 7459 Oct, 2013 [facility] [place] [facility] [address] [id number] [place] [address] Oct, 2013 [facility] [place] [facility] [address] [id number] [place] [address] Oct, [facility] [place] [facility] [address] [id number] [place] [address] Oct, [facility] [place] [facility] [address] [id number] [place] [address] Oct, [facility] [place] [facility] [address] [id number] [place] [address] Oct, [facility] [place] [facility] [address] [id number] [place] [address] Oct, [facility] [place] [facility] [address] [id number] [place] [address] Oct, [facility] [place] [facility] [address] [id number] [place] [address] Oct, 2013 [facility] [place] [facility] [address] [id number] [place] [address] Oct, [facility] [place] [facility] [address] [id number] [place] [address] Sep, [facility] [place] [facility] [address] [id number] [place] [address] Sep, [facility] [place] [facility] [address] [id number] [place] [address] Sep, [facility] [place] [facility] [address] [id number] [place] [address] Sep, [facility] [place] [facility] [address] [id number] [place] [address] Feb, [facility] [place] [facility] [address] [id number] [place] [address] Feb, [facility] [place] [facility] [address] [id number] [place] [address] Dec, [facility] [place] [facility] [address] [id number] [place] [address] Dec, [facility] [place] [facility] [address] [id number] [place] [address] Nov, [facility] [place] [facility] [address] [id number] [place] [address] Nov, [facility] [place] [facility] [address] [id number] [place] [address] Nov, [facility] [place] [facility] [address] [id number] [place] [address] Nov, [facility] [place] [facility] [address] [id number] [place] [id number] Nov, [facility] [place] [facility] [address] [id number] [place] [address] Nov, [facility] [place] [facility] [address] [id number] [place] [address] Oct, [facility] [place] [facility] [address] [id number] [place] [address] Apr, [facility] [place] [facility] [address] [id number] [place] [address] August, [facility] [place] [facility] [address] [id number] [place] [address] August, [facility] [place] [facility] [address] [id number] [place] [address] August, [facility] [place] [facility] [address] [id number] [place] [address] Jul, [facility] [place] [facility] [address] [id number] [place] [address] Jun, [facility] [place] [facility] [address] [id number] [place] [address] Jun, [facility] [place] [facility] [address] [id number] [place] [address] Jun, [facility] [place] [facility] [address] [id number] [place] [address] Jun, [facility] [place] [facility] [address] [id number] [place] [address] Jun, [facility] [place] [facility] [address] [id number] [place] [address] Jun, [facility] [place] [facility] [address] [id number] [place] [address] May, [facility] [place] [facility] [address] [id number] [place] [address] May, [facility] [place] [facility] [address] [id number] [place] [address] May, [facility] [place] [facility] [address] [id number] [place] [address] May, [facility] [place] [facility] [address] [id number] [address] 06 May, 2011 [facility] [address] [facility] [id number] [address] 06 May, 2011 [facility] [address] [facility] [id number], [place] [address] Apr, [facility] [address] [facility] [id number][place] [address] Mar, [facility] [address] [facility] [id number], [place] [address] Mar, [facility] [address] [facility] [id number] [place] [address] Feb, [facility] [address] [facility] [id number] [address] Jan, [facility] [id number] [address] Mar, [facility] [id number], [place] [address] 15 Mar, 2009 [facility] [id number], [place] [address] Mar, [facility] [id number], [place] [address] Mar, [facility] [id number] [address] Mar, [facility] [id number], [place] [address] 16 Feb, 2009 [facility] [address] [facility] [id number], [place] [address] Feb, [facility] [address] [facility] [id number], [place] [address] 17 Nov, 2008 [facility] [address] [id number] [address] 10 May, 2008 IMMUNIZATIONS No Known Immunizations SOCIAL HISTORY Never Assessed REASON FOR VISIT Requests return call PLAN OF CARE VITAL SIGNS MEDICATIONS Unknown Medications RESULTS No Results PROCEDURES No Known procedures INSTRUCTIONS MEDICATIONS ADMINISTERED No Known Medications MEDICAL (GENERAL) HISTORY Type Description Date Medical History HELP syndrome Medical History bi-polar Medical History hypertension Medical History hx of seizure x1, isolated Surgical History gallbladder 10/2013 Surgical History 03/2014 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
--- OUTSIDE RECORDS SUMMARY | 2017-12-25 20:23 | XMS REPORT ---
Author Author LOBO KING [facility] eClinicalWorks Address Unknown Phone Unavailable Care Team Providers Care Softwood Faller Name Role Phone LOBO KING Unavailable Allergies No Known Allergies Problems Problem Type Condition Code Onset Dates Condition Status Problem Bipolar affective disorder, remission status unspecified F31.9 Active Problem Depression, unspecified depression type F32.9 Active Medications Medication Code System Code Instructions Start Date End Date Status Dosage Dorcas [facility] [address]-50 5 mg Orally Once a day Jan 30, 2016 1 tablet Results No Known Results Summary Purpose eClinicalWorks Submission
--- OUTSIDE RECORDS SUMMARY | 2017-12-25 20:23 | XMS REPORT ---
Author Author OLY DURBIN [facility] Address [address] [place] [address] Care Team Providers Care Bit Gatherer Name Role Phone OLY DURBIN Unavailable PROBLEMS Type Condition ICD9-CM Code YTX03-MR Code Onset Dates Condition Status SNOMED Code Problem Bipolar I disorder with depression F31.9 Active 31461061 Problem Amenorrhea N91.2 Active 80518876 Problem Social anxiety disorder F40.10 Active 78950345 Problem Obsessive-compulsive disorder, unspecified type F42.9 Active 087363714 Problem PTSD (post-traumatic stress disorder) F43.10 Active 94596315 Problem Mood disorder F39 Active 51908320 Problem 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 Active 63975356 ALLERGIES No Information ENCOUNTERS Encounter Location Date Diagnosis [place] [id number] [place] [address] 21996- 0928 Nov, [place] [address] [place] [id number] [place] [address] 02242- 9709 Nov, [place] [id number] [place] [address] 50803- 0197 Oct, [place] [id number] [place] [address] 93383- 0132 Oct, [place] [address] [id number] [place] [address] 74476- 9859 Sep, Bipolar I disorder with depression F31.9 [facility] [place] [id number] [place] [address] 47961- 7734 Sep, Bipolar I disorder with depression F31.9 ; PTSD (post- traumatic stress disorder) F43.10 ; 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 ; Social anxiety disorder F40.10 and BMI 50.0-59.9, adult Z68.43 [place] [address] [address] 3077 Sep, PTSD (post-traumatic stress disorder) F43.10 and Bipolar I disorder with depression F31.9 [place] [address] [address] 6959 Sep, PTSD (post-traumatic stress disorder) F43.10 and Bipolar I disorder with depression F31.9 [place] [address] [id number] [place] [address] 56446- 3559 August, PTSD (post-traumatic stress disorder) F43.10 and Bipolar I disorder with depression F31.9 [place] [id number] [place] [address] 12691- 3159 August, Bipolar I disorder with depression F31.9 ; PTSD (post- traumatic stress disorder) F43.10 ; 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 ; Social anxiety disorder F40.10 and BMI 50.0-59.9, adult Z68.43 [place] [address] [address] 8102 August, [place] [address] [place] [address] [id number] [place] [address] 97766- 3973 August, Bipolar I disorder with depression F31.9 ; PTSD (post- traumatic stress disorder) F43.10 ; 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 ; Social anxiety disorder F40.10 and BMI 50.0-59.9, adult Z68.43 [place] [address] [address] 1061 August, [place] [address] [place] [id number] [place] [address] 58871- 2050 August, [place] [address] [address]- 9764 August, PTSD (post-traumatic stress disorder) F43.10 and Bipolar I disorder with depression F31.9 [place] [id number] [address] 8901 August, [facility] [place] [address] [id number] [place] [address] 16612- 5045 Jul, Bipolar I disorder with depression F31.9 ; PTSD (post- traumatic stress disorder) F43.10 ; 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 ; Social anxiety disorder F40.10 and BMI 50.0-59.9, adult Z68.43 [place] [address] [id number] [place] [address] 79321- 5346 Jul, PTSD (post-traumatic stress disorder) F43.10 and Bipolar I disorder with depression F31.[address] 72582- 0430 Jul, Pelvic pain R10.2 ; Amenorrhea N91.2 and BMI 50.0-59.9, adult Z68.43 [place] [address] [id number] [place] [address] 79450- 7708 Jun, BMI 50.0-59.9, adult Z68.43 ; Bipolar I disorder with depression F31.9 ; PTSD (post-traumatic stress disorder) F43.10 and 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 [facility] [address] [place] [address] 33076 -5756 Jun, Other viral agents as the cause of diseases classified elsewhere B97.89 ; Other specified respiratory disorders J98.8 ; Bronchitis J40 and Cough R05 [address] [place] [address] 21868- 6203 Jun, PTSD (post-traumatic stress disorder) F43.10 [place] [id number] [place] [address] 17062- 7472 Jun, PTSD (post-traumatic stress disorder) F43.10 and Bipolar I disorder with depression F31.9 [place] [id number] [place] [address] 84756- 1644 May, PTSD (post-traumatic stress disorder) F43.10 and Bipolar I disorder with depression F31.9 [facility] [place] [id number] [place] [address] 83589- 9316 May, [place] [address] [place] [id number] [place] [address] 93343- 5387 07 May, 2017 PTSD (post-traumatic stress disorder) F43.10 and Bipolar I disorder with depression F31.9 [place] [address] [place] [address] [id number] [place] [address] 61859- 1082 Apr, PTSD (post-traumatic stress disorder) F43.10 and Bipolar I disorder with depression F31.9 [place] [address] [place] [address] [id number] [place] [address] 99705- 9169 Apr, PTSD (post-traumatic stress disorder) F43.10 and Bipolar I disorder with depression F31.9 [place] [address] [place] [address] [id number] [place] [address] 78477- 0743 Mar, PTSD (post-traumatic stress disorder) F43.10 ; Obsessive- compulsive disorder, unspecified type F42.9 ; Bipolar I disorder with depression F31.9 and Other terminal gauger (current) drug therapy Z79.899 [place] [address] [place] [address] [id number] [place] [address] 92423- 8537 Mar, PTSD (post-traumatic stress disorder) F43.10 and Bipolar I disorder with depression F31.9 [place] [address] [place] [address] 65193- 6559 Feb, PTSD (post-traumatic stress disorder) F43.10 and Bipolar I disorder with depression F31.9 [place] [address] [place] [id number] [place] [address] 72586- 7760 Feb, PTSD (post-traumatic stress disorder) F43.10 and Bipolar I disorder with depression F31.9 [facility] [id number] [place] [address] 84287 -0812 Jan, Strep pharyngitis J02.0 [place] [id number] [place] [address] 78657- 4918 16 Jan, 2017 [place] [address] [place] [id number] [place] [address] 65185- 5570 Jan, [place] [address] [place] [address] [id number] [place] [address] 10383- 8768 Jan, PTSD (post-traumatic stress disorder) F43.10 and Bipolar I disorder with depression F31.9 [place] [address] [address] [id number] [place] [address] 78470- 4480 Jan, PTSD (post-traumatic stress disorder) F43.10 and Bipolar I disorder with depression F31.9 [place] [address] [place] [id number] [place] [address] 26019- 2919 Jan, Other terminal gauger (current) drug therapy Z79.899 [place] [address] [place] [address] [id number] [place] [address] 80583- 2337 Jan, PTSD (post-traumatic stress disorder) F43.10 ; Obsessive- compulsive disorder, unspecified type F42.9 ; Bipolar I disorder with depression F31.9 and Other terminal gauger (current) drug therapy Z79.899 [place] [id number] [place] [address] 74615- 2308 Dec, Encounter for IUD removal Z30.432 and control counseling Z30.09 [place] [address] [place] [id number] [place] [address] 28849- 6193 Dec, PTSD (post-traumatic stress disorder) F43.10 ; Obsessive- compulsive disorder, unspecified type F42.9 and Bipolar I disorder with depression F31.9 [place] [address] [place] [id number] [place] [address] 52917- 0286 Dec, PTSD (post-traumatic stress disorder) F43.10 and Bipolar I disorder with depression F31.9 [place] [address] [place] [address] [id number] [place] [address] 04862- 2276 Dec, PTSD (post-traumatic stress disorder) F43.10 and Bipolar I disorder with depression F31.9 [facility] [place] [address] [address]- 9442 11 Dec, 2016 Mood disorder F39 [facility] [place] [address] [address]- 0855 08 Dec, 2016 PTSD (post-traumatic stress disorder) F43.10 ; Mood disorder F39 and Obsessive-compulsive disorder, unspecified type F42.9 [facility] [place] [address], [place] [address]- 2155 07 Dec, 2016 PTSD (post-traumatic stress disorder) F43.10 and Bipolar I disorder with depression F31.9 [facility] [address] [address]2688 Dec, Adverse drug reaction, initial encounter T88.7XXA [facility] [place] [address] [place] [address] [id number] [place] [address] 76379- 0418 Dec, [facility] [place] [address] [id number] [place] [address] 32297- 4729 Nov, PTSD (post-traumatic stress disorder) F43.10 and Bipolar I disorder with depression F31.9 [facility] [place] [address], [place] [address]- 3751 Nov, PTSD (post-traumatic stress disorder) F43.10 ; Mood disorder F39 and Obsessive-compulsive disorder, unspecified type F42.9 [facility] [place] [address], [place] [address]- 6129 Nov, PTSD (post-traumatic stress disorder) F43.10 and Bipolar I disorder with depression F31.9 [facility] [place] [id number] [place] [address] 06957- 9937 Nov, PTSD (post-traumatic stress disorder) F43.10 and Bipolar I disorder with depression F31.9 [facility] [id number] [place] [address] 74507 -0194 Nov, [facility] [place] [address] [facility] [id number] [address]- 6311 Nov, PTSD (post-traumatic stress disorder) F43.10 and Bipolar I disorder with depression F31.9 [facility] [place] [address] [facility] [id number], [place] [address]- 6016 Nov, PTSD (post-traumatic stress disorder) F43.10 and Bipolar I disorder with depression F31.9 [facility] [place] [address] [facility] [id number] [address]- 1636 Oct, [facility] [place] [address] [facility] [id number] [place] [address] 75046- 1844 Oct, PTSD (post-traumatic stress disorder) F43.10 ; Mood disorder F39 and Obsessive-compulsive disorder, unspecified type F42.9 [facility] [place] [address] [place] [id number] [address]- 9665 Oct, PTSD (post-traumatic stress disorder) F43.10 and Bipolar I disorder with depression F31.9 [facility] [place] [address] [facility] [id number], [place] [address]- 6631 Oct, PTSD (post-traumatic stress disorder) F43.10 and Bipolar I disorder with depression F31.9 [facility] [place] [address] [facility] [id number], [place] [address]- 6397 Oct, PTSD (post-traumatic stress disorder) F43.10 ; Mood disorder F39 and Obsessive-compulsive disorder, unspecified type F42.9 [facility] [place] [address] [facility] [id number], [place] [address]- 0782 Oct, [facility] [place] [address] [place] [id number] [address]- 0146 Oct, PTSD (post-traumatic stress disorder) F43.10 and Bipolar I disorder with depression F31.9 [facility] [place] [address] [facility] [id number], [place] [address]- 1271 Oct, PTSD (post-traumatic stress disorder) F43.10 ; Mood disorder F39 and Obsessive-compulsive disorder, unspecified type F42.9 [facility] [place] [address] [place] [id number] [place] [address] 53026- 8696 Sep, PTSD (post-traumatic stress disorder) F43.10 and Bipolar I disorder with depression F31.9 [facility] [place] [address] [place] [id number] [place] [address] 81269- 8806 Sep, PTSD (post-traumatic stress disorder) F43.10 ; Mood disorder F39 and Obsessive-compulsive disorder, unspecified type F42.9 [facility] [place] [address] [place] [id number] [place] [address] 16945- 6467 Sep, PTSD (post-traumatic stress disorder) F43.10 and Bipolar I disorder with depression F31.9 [facility] [place] [address] [place] [address] [id number] [place] [address] 37803- 4979 Sep, PTSD (post-traumatic stress disorder) F43.10 and Bipolar I disorder with depression F31.9 [facility] [place] [address] [place] [address] [id number] [place] [address] 93115- 0459 August, PTSD (post-traumatic stress disorder) F43.10 and Bipolar I disorder with depression F31.9 [facility] [id number] [place] [address] 68196 -0624 August, Pharyngitis due to other organism J02.8 [facility] [place] [address] [place] [address] [id number] [place] [address] 21739- 3454 August, PTSD (post-traumatic stress disorder) F43.10 ; Bipolar 1 disorder, mixed F31.60 and Other terminal gauger (current) drug therapy Z79.899 [place] [address] [place] [id number] [place] [address] 69201- 6858 August, PTSD (post-traumatic stress disorder) F43.10 and Bipolar I disorder with depression F31.9 [facility] [place] [address] [id number] [place] [address] 00193- 8157 Jul, PTSD (post-traumatic stress disorder) F43.10 and Bipolar I disorder with depression F31.9 [facility] [place] [address] [place] [address] 68270- 0210 Jul, PTSD (post-traumatic stress disorder) F43.10 and Bipolar I disorder with depression F31.9 [place] [address] [place] [id number] [place] [address] 60243- 9370 Jul, PTSD (post-traumatic stress disorder) F43.10 and Bipolar I disorder with depression F31.9 [place] [address] [place] [id number] [place] [address] 67405- 9949 Jul, Other terminal gauger (current) drug therapy Z79.899 [place] [address] [place] [id number] [place] [address] 63885- 7616 Jun, PTSD (post-traumatic stress disorder) F43.10 and Bipolar I disorder with depression F31.9 [place] [address] [place] [id number] [place] [address] 79732- 6738 Jun, Bipolar 1 disorder, mixed F31.60 ; PTSD (post-traumatic stress disorder) F43.10 and Other terminal gauger (current) drug therapy Z79.899 [place] [address] [place] [id number] [place] [address] 38124- 3551 Jun, PTSD (post-traumatic stress disorder) F43.10 and Depression , unspecified depression type F32.9 [place] [address] [place] [address] 40275- 0104 Jun, PTSD (post-traumatic stress disorder) F43.10 and Depression , unspecified depression type F32.9 [place] [address] [place] [id number] [place] [address] 71612- 4224 Jun, PTSD (post-traumatic stress disorder) F43.10 and Depression , unspecified depression type F32.9 [facility] [address] [place] [address] 24615 -7095 May, Fever, unspecified fever cause R50.9 and Gastroenteritis K52.9 [facility] [place] [address] [place] [id number] [place] [address] 68046- 7518 Mar, Sprain of other ligament of right ankle, subsequent encounter S93.491D [facility] [place] [id number] [place] [address] 84002- 2662 Mar, [facility] [id number] [place] [address] 20978 -0478 Feb, Scabies infestation B86 [place] [address] [place] [address] [id number] [place] [address] 59503- 8698 Feb, Dental caries K02.9 [place] [id number] [place] [address] 43798- 8254 Jan, [facility] [id number] [place] [address] 99229 -3323 Jan, Pharyngitis, unspecified etiology J02.9 [facility] [place] [id number] [place] [address] 21741- 5764 Jan, [place] [address] [place] [id number] [place] [address] 77973- 8431 Jan, Bipolar affective disorder, remission status unspecified F31.9 [place] [address] [id number] [place] [address] 38297- 0438 Jan, Encounter for dental examination and cleaning without abnormal findings Z01.20 [facility] [place] [id number] [place] [address] 71980- 5787 Jan, Bipolar affective disorder, remission status unspecified F31.9 [place] [address] [id number] [place] [address] 91447- 8173 Dec, Bipolar affective disorder, remission status unspecified F31.9 and Depression, unspecified depression type F32.9 [facility] [place] [id number] [place] [address] 66230- 8864 12 Sep, 2016 Unspecified mood [affective] disorder F39 and Generalized anxiety disorder F41.1 [facility] [place] [id number] [place] [address] 11964- 2403 08 Dec, 2015 Depression, unspecified depression type F32.9 [facility] [place] [id number] [place] [address] 65746- 7467 Nov, Dental caries K02.9 [place] [address] 18033- 7627 Nov, Dental examination Z01.20 [place] [address] 51694- 1316 Sep, Bipolar affective disorder, remission status unspecified F31.9 [place] [address] 64755- 4484 August, Tension headache G44.209 [facility] [address] 12155 -0123 Jul, [facility] [address] 42808 -7362 Jul, Upper respiratory infection J06.9 and Gastroenteritis K52.9 [place] [id number] [place] [address] 55237- 5536 Jun, Bronchitis J40 [facility] [address] 33131 -4439 Feb, Thoracic back pain M54.6 and Left shoulder pain M25.512 [place] [id number] [place] [address] 38380- 1044 05 Feb, 2015 [place] [address] 59323- 3004 14 Jul, 2014 [place] [address] 13821- 9179 13 Jul, 2014 [facility] [place] [address] 02547- 5057 Apr, [facility] [place] [facility] [address] [id number] [place] [address]- 1901 Apr, [facility] [place] [facility] [address] [id number] [place] [address]- 9761 Apr, [facility] [place] [facility] [address] [id number] [place] [address]- 5563 Apr, [facility] [place] [facility] [address] [id number] [place] [address]- 5514 Mar, [facility] [place] [facility] [address] [id number] [place] [address]- 7145 Mar, [facility] [place] [facility] [address] [id number] [place] [address]- 1103 Mar, [facility] [place] [facility] [address] [id number] [place] [address]- 7405 Mar, [facility] [place] [facility] [address] [id number] [place] [address]- 6004 Feb, [facility] [place] [facility] [address] [id number] [place] [address]- 4789 Feb, [facility] [place] [facility] [address] [id number] [place] [address]- 8790 Feb, [facility] [place] [facility] [address] [id number], [place] [address]- 4244 Feb, [facility] [place] [facility] [address] [id number], [place] [address]- 6649 Jan, [facility] [place] [facility] [address] [id number] [place] [address]- 4133 Jan, [facility] [place] [facility] [address] [id number] [place] [address]- 7414 Jan, [facility] [place] [facility] [address] [id number] [place] [address]- 5762 Jan, [facility] [place] [facility] [address] [id number] [place] [address]- 7249 Jan, [facility] [place] [facility] [address] [id number] [place] [address]- 3524 Jan, [facility] [place] [facility] [address] [id number] [place] [address]- 7096 Dec, [facility] [place] [facility] [address] [id number] [place] [address]- 2476 Dec, [facility] [place] [facility] [address] [id number] [place] [address]- 5663 Nov, [facility] [place] [facility] [address] [id number] [place] [address]- 3910 Nov, [facility] [place] [facility] [address] [id number] [place] [address]- 6280 Nov, [facility] [place] [facility] [address] [id number] [place] [address]- 2496 Nov, [facility] [place] [facility] [address] [id number] [place] [address]- 0473 Nov, [facility] [place] [facility] [address] [id number] [place] [address]- 6405 Nov, [facility] [place] [facility] [address] [id number] [place] [address]- 7400 Nov, [facility] [place] [facility] [address] [id number] [place] [address]- 5731 Nov, [facility] [place] [facility] [address] [id number] [place] [address]- 9203 Nov, [facility] [place] [facility] [address] [id number] [place] [address]- 6843 Oct, [facility] [place] [facility] [address] [id number] [place] [address]- 2359 Oct, [facility] [place] [facility] [address] [id number] [place] [address] Oct, [facility] [place] [facility] [address] [id number] [place] [address] Oct, 2013 [facility] [place] [facility] [address] [id number] [place] [address] Oct, 2013 [facility] [place] [facility] [address] [id number] [place] [address] Oct, 2013 [facility] [place] [facility] [address] [id number] [place] [address] Oct, 2013 [facility] [place] [facility] [address] [id number] [place] [address] Oct, 2013 [facility] [place] [facility] [address] [id number] [place] [address] Oct, [facility] [place] [facility] [address] [id number] [place] [address] Oct, 2013 [facility] [place] [facility] [address] [id number] [place] [address] Oct, 2013 [facility] [place] [facility] [address] [id number] [place] [address] Oct, [facility] [place] [facility] [address] [id number] [place] [address] Oct, [facility] [place] [facility] [address] [id number] [place] [address] Oct, [facility] [place] [facility] [address] [id number] [place] [address] Oct, [facility] [place] [facility] [address] [id number] [place] [address] Oct, [facility] [place] [facility] [address] [id number] [place] [address] Oct, [facility] [place] [facility] [address] [id number] [place] [address] Oct, 2013 [facility] [place] [facility] [address] [id number] [place] [address] Oct, [facility] [place] [facility] [address] [id number] [place] [address] Sep, [facility] [place] [facility] [address] [id number] [place] [address] Sep, [facility] [place] [facility] [address] [id number] [place] [address] Sep, [facility] [place] [facility] [address] [id number] [place] [address] Sep, [facility] [place] [facility] [address] [id number] [place] [address] Feb, [facility] [place] [facility] [address] [id number] [place] [address] Feb, [facility] [place] [facility] [address] [id number] [place] [address] Dec, [facility] [place] [facility] [address] [id number] [place] [address] Dec, [facility] [place] [facility] [address] [id number] [place] [address] Nov, [facility] [place] [facility] [address] [id number] [place] [address] Nov, [facility] [place] [facility] [address] [id number] [place] [address] Nov, [facility] [place] [facility] [address] [id number] [place] [address] Nov, [facility] [place] [facility] [address] [id number] [place] [address] Nov, [facility] [place] [facility] [address] [id number] [place] [address] Nov, [facility] [place] [facility] [address] [id number] [place] [address] Oct, [facility] [place] [facility] [address] [id number] [place] [address] Apr, [facility] [place] [facility] [address] [id number] [place] [address] August, [facility] [place] [facility] [address] [id number] [place] [address] August, [facility] [place] [facility] [address] [id number] [place] [address] August, [facility] [place] [facility] [address] [id number] [place] [address] Jul, [facility] [place] [facility] [address] [id number] [place] [address] Jun, [facility] [place] [facility] [address] [id number] [place] [address] Jun, [facility] [place] [facility] [address] [id number] [place] [address] Jun, [facility] [place] [facility] [address] [id number] [place] [address] Jun, [facility] [place] [facility] [address] [id number] [place] [address] Jun, [facility] [place] [facility] [address] [id number] [place] [address] Jun, [facility] [place] [facility] [address] [id number] [place] [address] May, [facility] [place] [facility] [address] [id number] [place] [address] May, [facility] [place] [facility] [address] [id number] [place] [address] May, [facility] [place] [facility] [address] [id number] [place] [address] 2016 May, [facility] [place] [facility] [address] [id number], [place] [address] 06 May, 2011 [facility] [address] [facility] [id number], [place] [address] 06 May, 2011 [facility] [address] [facility] [id number], [place] [address] Apr, [facility] [address] [facility] [id number], [place] [address] Mar, [facility] [address] [facility] [id number], [place] [address] Mar, [facility] [address] [facility] [id number] [place] [address] Feb, [facility] [address] [facility] [id number] [address] Jan, [facility] [id number] [address] Mar, [facility] [id number], [place] [address] 15 Mar, 2009 [facility] [id number], [place] [address] Mar, [facility] [id number], [place] [address] Mar, [facility] [id number] [address] [address] Mar, [facility] [id number], [place] [address] 16 Feb, 2009 [facility] [address] [facility] [id number], [place] [address] Feb, [facility] [address] [facility] [id number], [place] [address] 17 Nov, 2008 [facility] [address] [id number] [address] 10 May, 2008 IMMUNIZATIONS No Known Immunizations SOCIAL HISTORY Never Assessed REASON FOR VISIT Follow-up PTSD/Bipolar Disorder PLAN OF CARE Activity Details Follow Up 2 Weeks Reason: Follow-up VITAL SIGNS MEDICATIONS Unknown Medications RESULTS No Results PROCEDURES Procedure Date Ordered Result Body Site Psychotherapy, patient &/family, 45 minutes, established patient May 21, 2017 INSTRUCTIONS MEDICATIONS ADMINISTERED No Known Medications MEDICAL (GENERAL) HISTORY Type Description Date Medical History HELP syndrome Medical History bi-polar Medical History hypertension Medical History hx of seizure x1, isolated Surgical History gallbladder 10/2013 Surgical History 03/2014 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
--- OUTSIDE RECORDS SUMMARY | 2017-12-25 20:23 | XMS REPORT ---
Author Author OLY DURBIN Organization [facility] Address [address] [place] [address] Care Team Providers Care Speedboat Driver Name Role Phone OLY DURBIN Unavailable PROBLEMS Type Condition ICD9-CM Code [id number] Code Onset Dates Condition Status SNOMED Code Problem Mood disorder F39 Active 39116856 Problem 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 Active 51624629 Problem PTSD (post-traumatic stress disorder) F43.10 Active 00416920 Problem Obsessive-compulsive disorder, unspecified type F42.9 Active 560864705 Problem Bipolar I disorder with depression F31.9 Active [id number] ALLERGIES No Information SOCIAL HISTORY Never Assessed PLAN OF CARE Activity Details Follow Up 1 Week Reason: Follow-up VITAL SIGNS MEDICATIONS Unknown Medications RESULTS No Results PROCEDURES Procedure Date Ordered Result Body Site Psychotherapy, patient &/family, 45 minutes, established patient September 12, 2016 IMMUNIZATIONS No Known Immunizations MEDICAL (GENERAL) HISTORY Type Description Date Medical History HELP syndrome Medical History bi-polar Medical History hypertension Medical History hx of seizure x1, isolated Surgical History gallbladder 10/2013 Surgical History 03/2014 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
--- OUTSIDE RECORDS SUMMARY | 2017-12-25 20:23 | XMS REPORT ---
Author Author OLY DURBIN Organization [facility] Address [address] [place] [address] Care Team Providers Care Coupon Collection Clerk Name Role Phone OLY DURBIN Unavailable PROBLEMS Type Condition ICD9-CM Code [id number] Code Onset Dates Condition Status SNOMED Code Problem Mood disorder F39 Active 74422595 Problem 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 Active 67654968 Problem PTSD (post-traumatic stress disorder) F43.10 Active 59592065 Problem Obsessive-compulsive disorder, unspecified type F42.9 Active 661630794 Problem Bipolar I disorder with depression F31.9 Active [id number] ALLERGIES No Information SOCIAL HISTORY Never Assessed PLAN OF CARE Activity Details Follow Up 2 Weeks Reason: Follow-up VITAL SIGNS MEDICATIONS Unknown Medications RESULTS No Results PROCEDURES Procedure Date Ordered Result Body Site Psychotherapy, patient &/family, 45 minutes, established patient June 12, 2016 IMMUNIZATIONS No Known Immunizations MEDICAL (GENERAL) HISTORY Type Description Date Medical History HELP syndrome Medical History bi-polar Medical History hypertension Medical History hx of seizure x1, isolated Surgical History gallbladder 10/2013 Surgical History 03/2014 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
--- OUTSIDE RECORDS SUMMARY | 2017-12-25 20:24 | XMS REPORT ---
Author Author OLY DURBIN [facility] Address [address] [place] [address] Care Team Providers Care Game Programmer Name Role Phone OLY DURBIN Unavailable PROBLEMS Type Condition ICD9-CM Code PHY30-QL Code Onset Dates Condition Status SNOMED Code Problem Bipolar I disorder with depression F31.9 Active 04439559 Problem Amenorrhea N91.2 Active 17271793 Problem Social anxiety disorder F40.10 Active 09216418 Problem Obsessive-compulsive disorder, unspecified type F42.9 Active 075583406 Problem PTSD (post-traumatic stress disorder) F43.10 Active 01307936 Problem Mood disorder F39 Active 39443977 Problem 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 Active 84296631 ALLERGIES No Information ENCOUNTERS Encounter Location Date Diagnosis [facility] [id number] [place] [address] 73943- 5064 Oct, [facility] [id number] [place] [address] 45774- 5244 Oct, [facility] [id number] [place] [address] 25586- 7144 Sep, [facility] [id number] [place] [address] 63816- 2009 Sep, [facility] [id number] [place] [address] 20403- 8543 Sep, [facility] [id number] [place] [address] 16019- 9397 11 Sep, 2017 [facility] [id number] [place] [address] 40357- 9671 05 Sep, 2017 PTSD (post-traumatic stress disorder) F43.10 and Bipolar I disorder with depression F31.9 [facility] [id number] [address] 36[address] August, PTSD (post-traumatic stress disorder) F43.10 and Bipolar I disorder with depression F31.9 [facility] [facility] [address] [place] [address] 97358- 3603 August, Bipolar I disorder with depression F31.9 ; PTSD (post- traumatic stress disorder) F43.10 ; 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 ; Social anxiety disorder F40.10 and BMI 50.0-59.9, adult Z68.43 [place] [facility] [address], [place] [address] 9[address] August, [facility] [id number] [place] [address] 90619- 2994 August, Bipolar I disorder with depression F31.9 ; PTSD (post- traumatic stress disorder) F43.10 ; 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 ; Social anxiety disorder F40.10 and BMI 50.0-59.9, adult Z68.43 [place] [facility] [address] [address] 3929 August, [facility] [id number] [place] [address] 85729- 6430 August, [facility] [facility] [address] [address] 7789 August, PTSD (post-traumatic stress disorder) F43.10 and Bipolar I disorder with depression F31.9 [facility] [facility] [address], [place] [address] 3597 August, [facility] [id number] [place] [address] 32229- 5604 Jul, Bipolar I disorder with depression F31.9 ; PTSD (post- traumatic stress disorder) F43.10 ; 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 ; Social anxiety disorder F40.10 and BMI 50.0-59.9, adult Z68.43 [facility] [address] [address]- 1495 18 Jul, 2017 PTSD (post-traumatic stress disorder) F43.10 and Bipolar I disorder with depression F31.9 [facility] [facility] [address] [place] [address] 59353- 2655 09 Jul, 2017 Pelvic pain R10.2 ; Amenorrhea N91.2 and BMI 50.0-59.9, adult Z68.43 [facility] [id number] [place] [address] 11759- 5024 26 Jun, 2017 BMI 50.0-59.9, adult Z68.43 ; Bipolar I disorder with depression F31.9 ; PTSD (post-traumatic stress disorder) F43.10 and 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 [facility] [address], [place] [address] 15 Jun, 2017 Other viral agents as the cause of diseases classified elsewhere B97.89 ; Other specified respiratory disorders J98.8 ; Bronchitis J40 and Cough R05 [facility] [address] [place] [address] 27820- 1381 Jun, PTSD (post-traumatic stress disorder) F43.10 [facility] [id number] [place] [address] 13103- 3197 Jun, PTSD (post-traumatic stress disorder) F43.10 and Bipolar I disorder with depression F31.9 [facility] [id number] [place] [address] 76685- 3113 13 May, 2017 PTSD (post-traumatic stress disorder) F43.10 and Bipolar I disorder with depression F31.9 [facility] [id number] [place] [address] 80443- 5810 12 May, 2017 [facility] [id number] [place] [address] 94689- 2476 07 May, 2017 PTSD (post-traumatic stress disorder) F43.10 and Bipolar I disorder with depression F31.9 [facility] [id number] [address]- 6106 Apr, PTSD (post-traumatic stress disorder) F43.10 and Bipolar I disorder with depression F31.9 [facility] [id number] [place] [address] 45351- 1157 Apr, PTSD (post-traumatic stress disorder) F43.10 and Bipolar I disorder with depression F31.9 [facility] [id number] [place] [address] 36413- 6124 Mar, PTSD (post-traumatic stress disorder) F43.10 ; Obsessive- compulsive disorder, unspecified type F42.9 ; Bipolar I disorder with depression F31.9 and Other chcf (current) drug therapy Z79.899 [facility] [facility] [id number] [place] [address] 14009- 9154 Mar, PTSD (post-traumatic stress disorder) F43.10 and Bipolar I disorder with depression F31.9 [facility] [id number] [place] [address] 43654- 6001 Feb, PTSD (post-traumatic stress disorder) F43.10 and Bipolar I disorder with depression F31.9 [facility] [id number] [place] [address] 51123- 8018 Feb, PTSD (post-traumatic stress disorder) F43.10 and Bipolar I disorder with depression F31.9 [facility] [address] [place] [address] 60057 -5073 Jan, Strep pharyngitis J02.0 [facility] [id number] [place] [address] 77331- 5341 Jan, [facility] [id number] [place] [address] 45238- 0580 Jan, [facility] [facility] [id number] [place] [address] 42798- 0075 Jan, PTSD (post-traumatic stress disorder) F43.10 and Bipolar I disorder with depression F31.9 [place] [address], [place] [address]- 2837 Jan, PTSD (post-traumatic stress disorder) F43.10 and Bipolar I disorder with depression F31.9 [place] [address], [place] [address]- 9062 05 Jan, 2017 Other visual merchandise manager (current) drug therapy Z79.899 [facility] [facility] [id number] [place] [address] 67433- 2538 Jan, PTSD (post-traumatic stress disorder) F43.10 ; Obsessive- compulsive disorder, unspecified type F42.9 ; Bipolar I disorder with depression F31.9 and Other visual merchandise manager (current) drug therapy Z79.899 [facility] [address] [place] [address] 46059- 8054 27 Dec, 2016 Encounter for IUD removal Z30.432 and control counseling Z30.09 [facility] [facility] [id number] [place] [address] 49191- 5758 Dec, PTSD (post-traumatic stress disorder) F43.10 ; Obsessive- compulsive disorder, unspecified type F42.9 and Bipolar I disorder with depression F31.9 [facility] [address] [place] [address] 67703- 4427 Dec, PTSD (post-traumatic stress disorder) F43.10 and Bipolar I disorder with depression F31.9 [facility] [address] [place] [address] 92143- 4549 Dec, PTSD (post-traumatic stress disorder) F43.10 and Bipolar I disorder with depression F31.9 [facility] [facility] [address] [place] [address] 10070- 0549 11 Dec, 2016 Mood disorder F39 [facility] [facility] [address] [place] [address] 43939- 0760 08 Dec, 2016 PTSD (post-traumatic stress disorder) F43.10 ; Mood disorder F39 and Obsessive-compulsive disorder, unspecified type F42.9 [facility] [id number], [place] [address]- 9278 Dec, PTSD (post-traumatic stress disorder) F43.10 and Bipolar I disorder with depression F31.9 [facility] [address] [facility] [id number] [address] Dec, Adverse drug reaction, initial encounter T88.7XXA [facility] [id number] [place] [address] 16937- 8487 Dec, [facility] [id number] [place] [address] 52648- 3454 Nov, PTSD (post-traumatic stress disorder) F43.10 and Bipolar I disorder with depression F31.9 [facility] [id number], [place] [address]- 7649 Nov, PTSD (post-traumatic stress disorder) F43.10 ; Mood disorder F39 and Obsessive-compulsive disorder, unspecified type F42.9 [facility] [id number], [place] [address]- 2502 Nov, PTSD (post-traumatic stress disorder) F43.10 and Bipolar I disorder with depression F31.9 [facility] [id number], [place] [address]- 7910 Nov, PTSD (post-traumatic stress disorder) F43.10 and Bipolar I disorder with depression F31.9 [facility] [id number], [place] [address] Nov, [facility] [id number], [place] [address]- 9722 Nov, PTSD (post-traumatic stress disorder) F43.10 and Bipolar I disorder with depression F31.9 [facility] [id number], [place] [address]- 6089 Nov, PTSD (post-traumatic stress disorder) F43.10 and Bipolar I disorder with depression F31.9 [facility] [id number], [place] [address]- 7764 Oct, [facility] [id number] [place] [address] 34905955- 0296 Oct, PTSD (post-traumatic stress disorder) F43.10 ; Mood disorder F39 and Obsessive-compulsive disorder, unspecified type F42.9 [facility] [id number] [place] [address] 54614- 3584 Oct, PTSD (post-traumatic stress disorder) F43.10 and Bipolar I disorder with depression F31.9 [facility] [id number] [place] [address] 28640- 9233 Oct, PTSD (post-traumatic stress disorder) F43.10 and Bipolar I disorder with depression F31.9 [facility] [address], [place] [address]- 0223 Oct, PTSD (post-traumatic stress disorder) F43.10 ; Mood disorder F39 and Obsessive-compulsive disorder, unspecified type F42.9 [facility] [id number], [place] [address]- 1934 Oct, [facility] [id number] [place] [address] 04819- 8226 Oct, PTSD (post-traumatic stress disorder) F43.10 and Bipolar I disorder with depression F31.9 [facility] [address], [place] [address]- 6884 Oct, PTSD (post-traumatic stress disorder) F43.10 ; Mood disorder F39 and Obsessive-compulsive disorder, unspecified type F42.9 [facility] [id number], [place] [address]- 7017 Sep, PTSD (post-traumatic stress disorder) F43.10 and Bipolar I disorder with depression F31.9 [facility] [id number], [place] [address]- 3276 Sep, PTSD (post-traumatic stress disorder) F43.10 ; Mood disorder F39 and Obsessive-compulsive disorder, unspecified type F42.9 [facility] [id number] [place] [address] 17243- 6126 Sep, PTSD (post-traumatic stress disorder) F43.10 and Bipolar I disorder with depression F31.9 [facility] [id number] [place] [address] 26661- 6646 Sep, PTSD (post-traumatic stress disorder) F43.10 and Bipolar I disorder with depression F31.9 [facility] [id number] [place] [address] 02774- 4637 August, PTSD (post-traumatic stress disorder) F43.10 and Bipolar I disorder with depression F31.9 [facility] [id number] [place] [address] 69129 -5425 August, Pharyngitis due to other organism J02.8 [facility] [id number] [place] [address] 16107- 2082 August, PTSD (post-traumatic stress disorder) F43.10 ; Bipolar 1 disorder, mixed F31.60 and Other visual merchandise manager (current) drug 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 Z79.899 [facility] [id number] [place] [address] 33212- 2863 August, PTSD (post-traumatic stress disorder) F43.10 and Bipolar I disorder with depression F31.9 [facility] [id number] [place] [address] 62325- 3427 Jul, PTSD (post-traumatic stress disorder) F43.10 and Bipolar I disorder with depression F31.9 [facility] [id number] [place] [address] 74845- 6982 Jul, PTSD (post-traumatic stress disorder) F43.10 and Bipolar I disorder with depression F31.9 [facility] [id number] [place] [address] 34727- 2406 Jul, PTSD (post-traumatic stress disorder) F43.10 and Bipolar I disorder with depression F31.9 [facility] [id number] [place] [address] 44357- 8227 Jul, Other chcf (current) drug therapy Z79.899 [place] [id number] [place] [address] 22286- 0418 Jun, PTSD (post-traumatic stress disorder) F43.10 and Bipolar I disorder with depression F31.9 [place] [id number] [place] [address] 84792- 7264 Jun, Bipolar 1 disorder, mixed F31.60 ; PTSD (post-traumatic stress disorder) F43.10 and Other visual merchandise manager (current) drug therapy Z79.899 [place] [id number] [place] [address] 93346- 2410 Jun, PTSD (post-traumatic stress disorder) F43.10 and Depression , unspecified depression type F32.9 [place] [id number] [place] [address] 27993- 9756 Jun, PTSD (post-traumatic stress disorder) F43.10 and Depression , unspecified depression type F32.9 [place] [id number] [place] [address] 49020- 0251 Jun, PTSD (post-traumatic stress disorder) F43.10 and Depression , unspecified depression type F32.9 [facility] [id number] [place] [address] 90127 -6854 May, Fever, unspecified fever cause R50.9 and Gastroenteritis K52.9 [place] [address] 05301- 7163 Mar, Sprain of other ligament of right ankle, subsequent encounter S93.491D [facility] [id number] [place] [address] 64388- 3414 Mar, [facility] [address] 40163 -7036 Feb, Scabies infestation B86 [facility] [id number] [place] [address] 54079- 9879 Feb, Dental caries K02.9 [facility] [id number] [place] [address] 96246- 1183 Jan, [facility] [id number] [place] [address] 61421 -5368 Jan, Pharyngitis, unspecified etiology J02.9 [facility] [id number] [place] [address] 62148- 2420 Jan, [facility] [id number] [place] [address] 85885- 2287 Jan, Bipolar affective disorder, remission status unspecified F31.9 [place] [id number] [place] [address] 92231- 1378 Jan, Encounter for dental examination and cleaning without abnormal findings Z01.20 [facility] [id number] [place] [address] 85403- 5846 Jan, Bipolar affective disorder, remission status unspecified F31.9 [facility] [id number] [place] [address] 28375- 8796 Dec, Bipolar affective disorder, remission status unspecified F31.9 and Depression, unspecified depression type F32.9 [facility] [id number] [place] [address] 81299- 5312 Dec, Unspecified mood [affective] disorder F39 and Generalized anxiety disorder F41.1 [facility] [id number] [place] [address] 66435- 9026 08 Dec, 2015 Depression, unspecified depression type F32.9 [facility] [address] [place] [address] 13131- 4720 Nov, Dental caries K02.9 [facility] [id number] [place] [address] 51122- 2870 Nov, Dental examination Z01.20 [facility] [id number] [place] [address] 56424- 3827 Sep, Bipolar affective disorder, remission status unspecified F31.9 [facility] [id number] [place] [address] 47992- 3920 August, Tension headache G44.209 [facility] [address] 10577 -4196 Jul, [facility] [id number] [place] [address] 75613 -7283 Jul, Upper respiratory infection J06.9 and Gastroenteritis K52.9 [facility] [id number] [place] [address] 74106- 2862 Jun, Bronchitis J40 [facility] [address] 85079 -9401 Feb, Thoracic back pain M54.6 and Left shoulder pain M25.512 [facility] [id number] [place] [address] 36104- 3248 Feb, [facility] [id number] [place] [address] 08945- 3404 Jul, [facility] [id number] [place] [address] 64066- 9470 Jul, [facility] [id number] [place] [address] 84881- 0222 Apr, [facility] [id number] [place] [address] 67760- 1505 Apr, [facility] [address] 78234- 2319 Apr, [facility] [id number] [place] [address] 80076- 9461 Apr, [facility] [id number] [place] [address]- 2187 Mar, [facility] [place] [facility] [address] [id number] [place] [address]- 4967 Mar, [facility] [place] [facility] [address] [id number] [place] 6276 Mar, [facility] [place] [facility] [address] [id number] [place] 1784 Mar, [facility] [place] [facility] [address] [id number] [place] [address]- 9759 Feb, [facility] [place] [facility] [address] [id number] [place] [address]- 4835 Feb, [facility] [place] [facility] [address] [id number] [place] [address]- 3664 Feb, [facility] [place] [facility] [address] [id number] [place] [address]- 2689 Feb, [facility] [place] [facility] [address] [id number] [place] [address]- 3969 15 Jan, 2014 [facility] [place] [facility] [address] [id number] [place] [address]- 3439 15 Jan, 2014 [facility] [place] [facility] [address] [id number] [place] [address]- 1815 14 Jan, 2014 [facility] [place] [facility] [address] [id number] [place] [address]- 1592 14 Jan, 2014 [facility] [place] [facility] [address] [id number] [place] [address]- 8442 13 Jan, 2014 [facility] [place] [facility] [address] [id number] [place] [address]- 2134 Jan, [facility] [place] [facility] [address] [id number] [place] [address]- 2779 15 Dec, 2013 [facility] [place] [facility] [address] [id number] [place] [address]- 0374 Dec, [facility] [place] [facility] [address] [id number] [place] [address]- 2117 Nov, [facility] [place] [facility] [address] [id number] [place] [address]- 8345 Nov, [facility] [place] [facility] [address] [id number] [place] [address]- 2406 Nov, [facility] [place] [facility] [address] [id number] [place] [address]- 2208 Nov, [facility] [place] [facility] [address] [id number] [place] [address]- 0546 Nov, [facility] [place] [facility] [address] [id number] [place] [address]- 2703 Nov, [facility] [place] [facility] [address] [id number] [place] [address]- 1772 Nov, [facility] [place] [facility] [address] [id number] [place] [address]- 4895 Nov, [facility] [place] [facility] [address] [id number] [place] [address]- 5085 Nov, [facility] [place] [facility] [address] [id number] [place] [address]- 4319 Oct, [facility] [place] [facility] [address] [id number] [place] [address]- 6103 Oct, [facility] [place] [facility] [address] [id number] [place] [address]- 2675 Oct, [facility] [place] [facility] [address] [id number] [place] [address]- 9811 Oct, [facility] [place] [facility] [address] [id number] [place] [address]- 6892 Oct, [facility] [place] [facility] [address] [id number] [place] [address]- 0269 Oct, [facility] [place] [facility] [address] [id number] [place] [address]- 2383 Oct, 2013 [facility] [place] [facility] [address] [id number] [place] [address]- 9724 Oct, 2013 [facility] [place] [facility] [address] [id number] [place] [address]- 6390 Oct, [facility] [place] [facility] [address] [id number] [place] [address]- 2126 Oct, 2013 [facility] [place] [facility] [address] [id number] [place] [address]- 5191 Oct, 2013 [facility] [place] [facility] [address] [id number] [place] [address] Oct, [facility] [place] [facility] [address] [id number] [place] [address] Oct, [facility] [place] [facility] [address] [id number] [place] [address] Oct, [facility] [place] [facility] [address] [id number] [place] [address] Oct, [facility] [place] [facility] [address] [id number] [place] [address] Oct, [facility] [place] [facility] [address] [id number] [place] [address] Oct, [facility] [place] [facility] [address] [id number] [place] [address] Oct, [facility] [place] [facility] [address] [id number] [place] [address] Oct, [facility] [place] [facility] [address] [id number] [place] [address] Sep, [facility] [place] [facility] [address] [id number] [place] [address] Sep, [facility] [place] [facility] [address] [id number] [place] [address] Sep, [facility] [place] [facility] [address] [id number] [place] [address] Sep, [facility] [address] [id number] [place] [address] Feb, [facility] [address] [id number] [place] [address] Feb, [facility] [address] [id number] [place] [address] Dec, [facility] [address] [id number] [place] [address] Dec, [facility] [address] [id number] [place] [address] Nov, [facility] [address] [id number] [place] [address] Nov, [facility] [address] [id number] [place] [address] Nov, [facility] [address] [id number] [place] [address] Nov, [facility] [address] [id number] [place] [address] Nov, [facility] [address] [id number] [place] [address] Nov, [facility] [facility] [address] [id number] [place] [address] Oct, [facility] [address] [id number] [place] [address] Apr, [facility] [place] [facility] [address] [id number] [place] [address] August, [facility] [address] [id number] [place] [address] August, [facility] [address] [id number] [place] [address] August, [facility] [place] [facility] [address] [id number] [place] [address] Jul, [facility] [place] [facility] [address] [id number] [place] [address] Jun, [facility] [place] [facility] [address] [id number] [place] [address] Jun, [facility] [place] [facility] [address] [id number] [place] [address] Jun, [facility] [place] [facility] [address] [id number] [place] [address] Jun, [facility] [place] [facility] [address] [id number] [place] [address] Jun, [facility] [place] [facility] [address] [id number] [place] [address] Jun, [facility] [place] [facility] [address] [id number] [place] [address] May, [facility] [place] [facility] [address] [id number] [place] [address] May, [facility] [place] [facility] [address] [id number] [place] [address] May, [facility] [place] [facility] [address] [id number] [place] [address] May, [facility] [place] [facility] [address] [id number] [place] [address] May, [facility] [place] [facility] [address] [id number] [place] [address] May, [facility] [place] [facility] [address] [id number] [place] [address] Apr, [facility] [place] [facility] [address] [id number] [place] [address] Mar, [facility] [place] [facility] [address] [place] [address] Mar, [facility] [address] [place] [address] Feb, [facility] [address] [place] [address] Jan, [facility] [address] [place] [address] Mar, [facility] [id number] [address] Mar, [facility] [id number] [place] [address] Mar, [facility] [id number] [place] [id number] Mar, [facility] [id number] [place] [address] 8[address]- [address] Mar, [facility] [address] [place] [address] Feb, [facility] [address] [address] Feb, [facility] [address] [place] [address] Nov, [facility] [address] [address] May, IMMUNIZATIONS No Known Immunizations SOCIAL HISTORY Never Assessed REASON FOR VISIT Follow-up PTSD/Bipolar Disorder PLAN OF CARE Activity Details Follow Up 3 Weeks Reason: Follow-up VITAL SIGNS MEDICATIONS Unknown Medications RESULTS No Results PROCEDURES Procedure Date Ordered Result Body Site Psychotherapy, patient &/family, 45 minutes, established patient Mar 26, 2017 INSTRUCTIONS MEDICATIONS ADMINISTERED No Known Medications MEDICAL (GENERAL) HISTORY Type Description Date Medical History HELP syndrome Medical History bi-polar Medical History hypertension Medical History hx of seizure x1, isolated Surgical History gallbladder 10/2013 Surgical History 03/2014 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
--- OUTSIDE RECORDS SUMMARY | 2017-12-25 20:24 | XMS REPORT ---
Author MANUEL Lucia Organization [employer] Address Unknown Phone Unavailable Care Team Providers Care Technical Operations Specialist Name Role Phone MANUEL NICHOLE CP Unavailable Allergies, Adverse Reactions, Alerts Substance Reaction Event Type N.K.D.A. Info Not Available Non Drug Allergy Problems Problem Type Condition Code Onset Dates Condition Status Assessment Gastroenteritis K52.9 Active Assessment Upper respiratory infection J06.9 Active Problem Infections of genitourinary tract in , [...] Instructions Start Date End Date Status Dosage Ondansetron [facility] [address]-01 4 MG Orally every 8 hrs prn August 01, 2015 1 tablet on the tongue and allow to dissolve Zithromax Z-Pk [facility] [address]-91 250 MG Orally Once a day August 01, 2015 August 06, 2015 2 tablets on the first day, then 1 tablet daily for 4 days Mirena [facility] [address]-99 20 MCG/24HR Intrauterine not defined Procedures Procedure Coding System Code Date STREP A ASSAY W/OPTIC CPT-4 61659 August 01, 2015 Office Visit, Est Pt., Level 3 CPT-4 16874 August 01, 2015 Vital Signs Date/Time: August 01, 2015 Temperature 99 F Weight 261 lbs Height 64 in BMI 44.80 Index Blood Pressure Diastolic 76 mmHg Blood Pressure Systolic 126 mmHg Cardiac Monitoring Heart Rate 80 bpm Results Name Result Date Reference Range Unit Abnormality Flag STREP A (IN HOUSE) ----STREP A Negative [id number] ----Control + [id number] ----Lot # [id number] ----Exp date 02/10/201720150801 Summary Purpose [employer] Submission
--- OUTSIDE RECORDS SUMMARY | 2017-12-25 20:24 | XMS REPORT ---
Author Author OLY DURBIN Organization [facility] [place] Address [address] [place] [address] Care Team Providers Care Webbing Tacker Name Role Phone OLY DURBIN Unavailable PROBLEMS Type Condition ICD9-CM Code WVU92-SZ Code Onset Dates Condition Status SNOMED Code Problem Mood disorder F39 Active 22716312 Problem 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 Active 90004167 Problem PTSD (post-traumatic stress disorder) F43.10 Active 37711400 Problem Obsessive-compulsive disorder, unspecified type F42.9 Active 823014062 Problem Bipolar I disorder with depression F31.9 Active [id number] ALLERGIES No Information SOCIAL HISTORY Never Assessed PLAN OF CARE Activity Details Follow Up 1 Week Reason: Follow-up VITAL SIGNS MEDICATIONS Unknown Medications RESULTS No Results PROCEDURES Procedure Date Ordered Result Body Site Psychotherapy, patient &/family, 45 minutes, established patient July 31, 2016 IMMUNIZATIONS No Known Immunizations MEDICAL (GENERAL) HISTORY Type Description Date Medical History HELP syndrome Medical History bi-polar Medical History hypertension Medical History hx of seizure x1, isolated Surgical History gallbladder 10/2013 Surgical History 03/2014 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
--- OUTSIDE RECORDS SUMMARY | 2017-12-25 20:25 | XMS REPORT ---
Author Author [facility] Address [address] [place] [address] Care Team Providers Care [employer] [place] [employer] Professor Name Role Phone [place] Unavailable PROBLEMS Type Condition ICD9-CM Code WWR79-CP Code Onset Dates Condition Status SNOMED Code Problem Bipolar I disorder with depression F31.9 Active 99261425 Problem Amenorrhea N91.2 Active 88524152 Problem Social anxiety disorder F40.10 Active 33960816 Problem Obsessive-compulsive disorder, unspecified type F42.9 Active 798409889 Problem PTSD (post-traumatic stress disorder) F43.10 Active 71867315 Problem Mood disorder F39 Active 54008360 Problem 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 Active 04850041 ALLERGIES Substance Reaction Event Type Date Status Lamictal rash/blisters Drug Allergy Mar, Active Azithromycin hives Drug Allergy Mar, Active ORAGEL Unknown Non Drug Allergy Mar, Active ENCOUNTERS Encounter Location Date Diagnosis [facility] [address], [place] [address] Oct, [facility] [address], [place] [address] Oct, [facility] [id number] [place] [address] 52921- 0840 Sep, [facility] [address] [place] [address] 59264- 6908 Sep, [facility] [id number] [place] [place] [address] 90896- 3429 Sep, [facility] [address], [place] [address] Sep, PTSD (post-traumatic stress disorder) F43.10 and Bipolar I disorder with depression F31.9 [facility] [id number], [place] [address] August, PTSD (post-traumatic stress disorder) F43.10 and Bipolar I disorder with depression F31.9 [facility] [address], [place] [address] August, Bipolar I disorder with depression F31.9 ; PTSD (post- traumatic stress disorder) F43.10 ; 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 ; Social anxiety disorder F40.10 and BMI 50.0-59.9, adult Z68.43 [facility] [address], [place] [address] August, [facility] [address], [place] [address] August, Bipolar I disorder with depression F31.9 ; PTSD (post- traumatic stress disorder) F43.10 ; 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 ; Social anxiety disorder F40.10 and BMI 50.0-59.9, adult Z68.43 [facility] [address], [place] [address] August, [facility] [address], [place] [address] August, [facility] [address], [place] [address] 07[address] August, PTSD (post-traumatic stress disorder) F43.10 and Bipolar I disorder with depression F31.9 [facility] [address], [place] [address] August, [facility] [id number] [address] Jul, Bipolar I disorder with depression F31.9 ; PTSD (post- traumatic stress disorder) F43.10 ; 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 ; Social anxiety disorder F40.10 and BMI 50.0-59.9, adult Z68.43 [facility] [address], [place] [address] 16[address] 18 Jul, 2017 PTSD (post-traumatic stress disorder) F43.10 and Bipolar I disorder with depression F31.9 [facility] [id number] [place] [address] 73532- 9992 09 Jul, 2017 Pelvic pain R10.2 ; Amenorrhea N91.2 and BMI 50.0-59.9, adult Z68.43 [facility] [id number] [place] [address] 82967- 0611 26 Jun, 2017 BMI 50.0-59.9, adult Z68.43 ; Bipolar I disorder with depression F31.9 ; PTSD (post-traumatic stress disorder) F43.10 and 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 [facility] [id number] [place] [address] 11837 -3829 Jun, Other viral agents as the cause of diseases classified elsewhere B97.89 ; Other specified respiratory disorders J98.8 ; Bronchitis J40 and Cough R05 [facility] [id number] [place] [address] 18854- 5524 Jun, PTSD (post-traumatic stress disorder) F43.10 [facility] [id number] [place] [address] 31621- 6886 Jun, PTSD (post-traumatic stress disorder) F43.10 and Bipolar I disorder with depression F31.9 [facility] [id number] [place] [address] 30313- 1880 13 May, 2017 PTSD (post-traumatic stress disorder) F43.10 and Bipolar I disorder with depression F31.9 [facility] [id number] [place] [address] 58311- 6437 12 May, 2017 [facility] [id number] [place] [address] 26339- 1571 07 May, 2017 PTSD (post-traumatic stress disorder) F43.10 and Bipolar I disorder with depression F31.9 [facility] [address], [place] [address] Apr, PTSD (post-traumatic stress disorder) F43.10 and Bipolar I disorder with depression F31.9 [facility] [address], [place] [address] 8910 Apr, PTSD (post-traumatic stress disorder) F43.10 and Bipolar I disorder with depression F31.9 [facility] [id number] [place] [address] 67277- 1599 Mar, PTSD (post-traumatic stress disorder) F43.10 ; Obsessive- compulsive disorder, unspecified type F42.9 ; Bipolar I disorder with depression F31.9 and Other snf (current) drug therapy Z79.899 [facility] [address] [place] [place] [address] 88753- 0514 Mar, PTSD (post-traumatic stress disorder) F43.10 and Bipolar I disorder with depression F31.9 [facility] [address] [place] [address] 69672- 1260 Feb, PTSD (post-traumatic stress disorder) F43.10 and Bipolar I disorder with depression F31.9 [facility] [address], [place] [address] 8893 Feb, PTSD (post-traumatic stress disorder) F43.10 and Bipolar I disorder with depression F31.9 [facility] [address], [place] [address] Jan, Strep pharyngitis J02.0 [facility] [address], [place] [address] 2115 Jan, [facility] [id number] [place] [address] 08655- 6358 Jan, [facility] [address], [place] [address]- 7195 Jan, PTSD (post-traumatic stress disorder) F43.10 and Bipolar I disorder with depression F31.9 [facility] [address], [place] [address]- 4789 Jan, PTSD (post-traumatic stress disorder) F43.10 and Bipolar I disorder with depression F31.9 [facility] [address], [place] [address]- 5273 Jan, 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 [facility] [id number] [place] [address] 98233- 8017 02 Jan, 2017 PTSD (post-traumatic stress disorder) F43.10 ; Obsessive- compulsive disorder, unspecified type F42.9 ; Bipolar I disorder with depression F31.9 and Other snf (current) drug therapy Z79.899 [facility] [address] [place] [place] [address] 29026- 0761 27 Dec, 2016 Encounter for IUD removal Z30.432 and control counseling Z30.09 [facility] [address] [place] [address] 79215- 8022 Dec, PTSD (post-traumatic stress disorder) F43.10 ; Obsessive- compulsive disorder, unspecified type F42.9 and Bipolar I disorder with depression F31.9 [facility] [address], [place] [address]- 7236 Dec, PTSD (post-traumatic stress disorder) F43.10 and Bipolar I disorder with depression F31.9 [facility] [address], [place] [address]- 2144 12 Dec, 2016 PTSD (post-traumatic stress disorder) F43.10 and Bipolar I disorder with depression F31.9 [facility] [id number] [place] [place] [address] 62974- 6543 11 Dec, 2016 Mood disorder F39 [facility] [address], [place] [address]- 6281 08 Dec, 2016 PTSD (post-traumatic stress disorder) F43.10 ; Mood disorder F39 and Obsessive-compulsive disorder, unspecified type F42.9 [facility] [id number], [place] [address]- 9016 Dec, PTSD (post-traumatic stress disorder) F43.10 and Bipolar I disorder with depression F31.9 [facility] [address] [facility] [id number] [address] Dec, Adverse drug reaction, initial encounter T88.7XXA [facility] [id number], [place] [address]- 0072 Dec, [facility] [id number] [place] [place] [address] 74923- 6301 Nov, PTSD (post-traumatic stress disorder) F43.10 and Bipolar I disorder with depression F31.9 [facility] [id number], [place] [address]- 8439 Nov, PTSD (post-traumatic stress disorder) F43.10 ; Mood disorder F39 and Obsessive-compulsive disorder, unspecified type F42.9 [facility] [id number], [place] [address]- 8508 Nov, PTSD (post-traumatic stress disorder) F43.10 and Bipolar I disorder with depression F31.9 [facility] [id number], [place] [address]- 9493 Nov, PTSD (post-traumatic stress disorder) F43.10 and Bipolar I disorder with depression F31.9 [facility] [address] [facility] [id number] [address] Nov, [facility] [id number], [place] [address]- 5659 Nov, PTSD (post-traumatic stress disorder) F43.10 and Bipolar I disorder with depression F31.9 [facility] [id number], [place] [address]- 3747 Nov, PTSD (post-traumatic stress disorder) F43.10 and Bipolar I disorder with depression F31.9 [facility] [id number], [place] [address]- 7971 Oct, [facility] [id number] [address] [address]236 Oct, PTSD (post-traumatic stress disorder) F43.10 ; Mood disorder F39 and Obsessive-compulsive disorder, unspecified type F42.9 [facility] [address] [place] [place] [address] 13344- 7612 Oct, PTSD (post-traumatic stress disorder) F43.10 and Bipolar I disorder with depression F31.9 [facility] [id number] [place] [place] [address] 34495- 3637 Oct, PTSD (post-traumatic stress disorder) F43.10 and Bipolar I disorder with depression F31.9 [facility] [address], [place] [address]- 3274 Oct, PTSD (post-traumatic stress disorder) F43.10 ; Mood disorder F39 and Obsessive-compulsive disorder, unspecified type F42.9 [facility] [id number], [place] [address] 1998 Oct, [facility] [id number], [place] [address]- 3833 Oct, PTSD (post-traumatic stress disorder) F43.10 and Bipolar I disorder with depression F31.9 [facility] [id number], [place] [address]- 9779 Oct, PTSD (post-traumatic stress disorder) F43.10 ; Mood disorder F39 and Obsessive-compulsive disorder, unspecified type F42.9 [facility] [id number], [place] [address]- 7000 Sep, PTSD (post-traumatic stress disorder) F43.10 and Bipolar I disorder with depression F31.9 [facility] [id number], [place] [address]- 2108 Sep, PTSD (post-traumatic stress disorder) F43.10 ; Mood disorder F39 and Obsessive-compulsive disorder, unspecified type F42.9 [facility] [id number] [place] [place] [address] 82612- 8411 Sep, PTSD (post-traumatic stress disorder) F43.10 and Bipolar I disorder with depression F31.9 [facility] [id number] [place] [place] [address] 49342- 6767 Sep, PTSD (post-traumatic stress disorder) F43.10 and Bipolar I disorder with depression F31.9 [facility] [id number] [place] [address] 21930- 1949 August, PTSD (post-traumatic stress disorder) F43.10 and Bipolar I disorder with depression F31.9 [facility] [id number] [place] [place] [address] 08665 -5945 August, Pharyngitis due to other organism J02.8 [facility] [id number] [place] [address] 90540- 0577 August, PTSD (post-traumatic stress disorder) F43.10 ; Bipolar 1 disorder, mixed F31.60 and Other snf (current) drug therapy Z79.899 [facility] [address] [place] [place] [address] 48842- 8930 August, PTSD (post-traumatic stress disorder) F43.10 and Bipolar I disorder with depression F31.9 [facility] [address] [place] [place] [address] 54537- 5030 Jul, PTSD (post-traumatic stress disorder) F43.10 and Bipolar I disorder with depression F31.9 [facility] [id number] [place] [address] 04589- 3878 Jul, PTSD (post-traumatic stress disorder) F43.10 and Bipolar I disorder with depression F31.9 [facility] [id number] [place] [place] [address] 39627- 7407 Jul, PTSD (post-traumatic stress disorder) F43.10 and Bipolar I disorder with depression F31.9 [facility] [id number] [place] [address] 99642- 0038 Jul, 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 [facility] [id number] [place] [address] 89940- 9941 Jun, PTSD (post-traumatic stress disorder) F43.10 and Bipolar I disorder with depression F31.9 [facility] [id number] [place] [place] [address] 58547- 3198 Jun, Bipolar 1 disorder, mixed F31.60 ; PTSD (post-traumatic stress disorder) F43.10 and 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 [facility] [id number] [place] [place] [address] 98193- 3948 Jun, PTSD (post-traumatic stress disorder) F43.10 and Depression , unspecified depression type F32.9 [facility] [id number] [place] [address] 74758- 3760 Jun, PTSD (post-traumatic stress disorder) F43.10 and Depression , unspecified depression type F32.9 [facility] [id number] [place] [address] 62633- 3040 Jun, PTSD (post-traumatic stress disorder) F43.10 and Depression , unspecified depression type F32.9 [facility] [id number] [place] [place] [address] 25761 -2269 May, Fever, unspecified fever cause R50.9 and Gastroenteritis K52.9 [facility] [address] [address]47- 2120 Mar, Sprain of other ligament of right ankle, subsequent encounter S93.491D [facility] [id number] [place] [place] [address] 66868- 5128 Mar, [facility] [address], [place] [address] Feb, Scabies infestation B86 [facility] [id number] [place] [place] [address] 38037- 1830 Feb, Dental caries K02.9 [facility] [id number] [place] [address] 75043- 3296 Jan, [facility] [id number] [place] [place] [address] 00338 -6488 Jan, Pharyngitis, unspecified etiology J02.9 [facility] [id number] [place] [place] [address] 79187- 1423 Jan, [facility] [id number] [place] [address] 93394- 0130 Jan, Bipolar affective disorder, remission status unspecified F31.9 [facility] [id number] [place] [place] [address] 22854- 4287 Jan, Encounter for dental examination and cleaning without abnormal findings Z01.20 [facility] [id number] [place] [place] [address] 83703- 8641 Jan, Bipolar affective disorder, remission status unspecified F31.9 [facility] [id number] [place] [address] 35758- 7836 Dec, Bipolar affective disorder, remission status unspecified F31.9 and Depression, unspecified depression type F32.9 [place] [place] [address] [place] [address] 91681- 0993 Dec, Unspecified mood [affective] disorder F39 and Generalized anxiety disorder F41.1 [facility] [id number] [place] [address] 93608- 5483 08 Dec, 2015 Depression, unspecified depression type F32.9 [facility] [address] [place] [address] 50732- 6951 Nov, Dental caries K02.9 [facility] [id number] [place] [place] [address] 78292- 6882 Nov, Dental examination Z01.20 [facility] [address] 12511- 5005 Sep, Bipolar affective disorder, remission status unspecified F31.9 [facility] [address] 53975- 6705 August, Tension headache G44.209 [facility] [address] 78184 -8623 Jul, [facility] [address] 71369 -8534 Jul, Upper respiratory infection J06.9 and Gastroenteritis K52.9 [facility] [address] 15038- 9325 Jun, Bronchitis J40 [facility] [address] 08215 -6263 Feb, Thoracic back pain M54.6 and Left shoulder pain M25.512 [facility] [address] 30254- 7606 Feb, [facility] [address] 99731- 6245 Jul, [facility] [address] 66669- 7336 Jul, [facility] [address] 32298- 4182 Apr, [facility] [address] 94901- 3685 Apr, [facility] [address] 27792- 1054 Apr, [facility] [address] 07799- 0266 Apr, [facility] [place] [facility] [address] [id number] [place] [address]1 Mar, [facility] [place] [facility] [address] [id number] [place] [address]- 9747 Mar, [facility] [place] [facility] [address] [id number] [place] [address]- 7604 Mar, [facility] [place] [facility] [address] [id number] [place] 4442 Mar, [facility] [place] [facility] [address] [id number] [place] 2490 Feb, [facility] [place] [facility] [address] [id number] [place] [address]- 0026 Feb, [facility] [place] [facility] [address] [id number] [place] [address]- 3224 Feb, [facility] [place] [facility] [address] [id number] [place] [address]- 7284 Feb, [facility] [place] [facility] [address] [id number] [place] [address]- 0572 15 Jan, 2014 [facility] [place] [facility] [address] [id number] [place] [address]- 4735 15 Jan, 2014 [facility] [place] [facility] [address] [id number] [place] [address]- 4164 14 Jan, 2014 [facility] [place] [facility] [address] [id number], [place] [address]- 0260 14 Jan, 2014 [facility] [place] [facility] [address] [id number] [place] [address]- 6984 Jan, [facility] [place] [facility] [address] [id number] [place] [address]- 0815 13 Jan, 2014 [facility] [place] [facility] [address] [id number] [place] 4988 15 Dec, 2013 [facility] [place] [facility] [address] [id number], [place] [address]- 3324 Dec, [facility] [place] [facility] [address] [id number] [place] [address]- 2653 Nov, [facility] [place] [facility] [address] [id number] [place] [address]- 9022 Nov, [facility] [place] [facility] [address] [id number] [place] [address]- 9063 Nov, [facility] [place] [facility] [address] [id number] [place] [address]- 1230 Nov, [facility] [place] [facility] [address] [id number] [place] [address]- 6059 Nov, [facility] [place] [facility] [address] [id number] [place] [address]- 4382 Nov, [facility] [place] [facility] [address] [id number] [place] [address]- 0652 Nov, [facility] [place] [facility] [address] [id number] [place] [address]- 5035 Nov, [facility] [place] [facility] [address] [id number] [place] [address]- 1031 Nov, [facility] [place] [facility] [address] [id number] [place] [address]- 6575 Oct, [facility] [place] [facility] [address] [id number] [place] [address]- 9180 Oct, [facility] [place] [facility] [address] [id number] [place] [address] Oct, [facility] [place] [facility] [address] [id number] [place] [address] Oct, [facility] [place] [facility] [address] [id number] [place] [address] Oct, [facility] [place] [facility] [address] [id number] [place] [address] Oct, [facility] [place] [facility] [address] [id number] [place] [address] 16 Oct, 2013 [facility] [place] [facility] [address] [id number] [place] [address] Oct, 2013 [facility] [place] [facility] [address] [id number] [place] [address] Oct, 2013 [facility] [place] [facility] [address] [id number] [place] [address] Oct, 2013 [facility] [place] [facility] [address] [id number] [place] [address] Oct, 2013 [facility] [place] [facility] [address] [id number] [place] [address] Oct, 2013 [facility] [place] [facility] [address] [id number] [place] [address] Oct, 2013 [facility] [place] [facility] [address] [id number] [place] [address] Oct, 2013 [facility] [place] [facility] [address] [id number] [place] [address] Oct, [facility] [place] [facility] [address] [id number] [place] [address] Oct, [facility] [place] [facility] [address] [id number] [place] [address] Oct, [facility] [place] [facility] [address] [id number] [place] [address] Oct, [facility] [place] [facility] [address] [id number] [place] [address] Oct, [facility] [place] [facility] [address] [id number] [place] [address] Sep, [facility] [place] [facility] [address] [id number] [place] [address] Sep, [facility] [place] [facility] [address] [id number] [place] [address] Sep, [facility] [place] [facility] [address] [id number] [place] [address] Sep, [facility] [place] [facility] [address] [id number] [place] [id number] Feb, [facility] [place] [facility] [address] [id number] [place] [address] Feb, [facility] [place] [facility] [address] [id number] [place] [address] Dec, [facility] [place] [facility] [address] [id number] [place] [address] Dec, [facility] [place] [facility] [address] [id number] [place] [address] Nov, [facility] [place] [facility] [address] [id number] [place] [address] Nov, [facility] [place] [facility] [address] [id number] [place] [address] Nov, [facility] [place] [facility] [address] [id number] [place] [address] Nov, [facility] [place] [facility] [address] [id number] [place] [address] Nov, [facility] [place] [facility] [address] [id number] [place] [address] Nov, [facility] [place] [facility] [address] [id number] [place] [address] Oct, [facility] [place] [facility] [address] [id number] [place] [address] Apr, [facility] [place] [facility] [address] [id number] [place] [address] August, [facility] [place] [facility] [address] [id number] [place] [address] August, [facility] [place] [facility] [address] [id number] [place] [address] August, [facility] [place] [facility] [address] [id number] [place] [address] Jul, [facility] [place] [facility] [address] [id number] [place] [address] Jun, [facility] [place] [facility] [address] [id number] [place] [address] Jun, [facility] [place] [facility] [address] [id number] [place] [address] Jun, [facility] [place] [facility] [address] [id number] [place] [address] Jun, [facility] [place] [facility] [address] [facility] [id number] [place] [address] Jun, [facility] [place] [facility] [address] [id number] [place] [address] Jun, [facility] [place] [facility] [address] [id number] [place] [address] May, [facility] [place] [facility] [address] [id number] [place] [address] May, [facility] [place] [facility] [address] [facility] [id number] [place] [address] May, [facility] [place] [facility] [id number] [place] [address] May, [facility] [place] [facility] [address] [facility] [id number] [place] [address] May, [facility] [place] [facility] [address] [id number] [place] [address] May, [facility] [place] [facility] [address] [facility] [id number] [place] [address] Apr, [facility] [place] [facility] [address] [facility] [id number] [place] [address] Mar, [facility] [id number] [place] [address] 06 Mar, 2011 [facility] [id number] [address] Feb, [facility] [id number] [place] [address] Jan, [facility] [id number] [place] [address] Mar, [facility] [id number] [place] [address] Mar, [facility] [id number] [place] [address] Mar, [facility] [id number], [place] [address] Mar, [facility] [id number] [place] [address] Mar, [facility] [id number] [place] [address] Feb, [facility] [id number] [place] [address] Feb, [facility] [id number] [place] [address] Nov, [facility] [id number] [address] May, IMMUNIZATIONS No Known Immunizations SOCIAL HISTORY Never Assessed REASON FOR VISIT JOHN f/u----Lisa PLAN OF CARE Activity Details Follow Up 4 Weeks Reason:JOHN f/u VITAL SIGNS Height 64 in 2017-03-31 Weight 285 lbs 2017-03-31 Heart Rate 90 bpm 2017-03-31 Respiratory Rate 20 2017-03-31 BMI 48.91 kg/m2 2017-03-31 Blood pressure systolic 130 mmHg 2017-03-31 Blood pressure diastolic 80 mmHg 2017-03-31 MEDICATIONS Medication Instructions Dosage Frequency Start Date End Date Duration Status Celexa 20 mg Orally Once a day 1 tablet 24h Active Trazodone HCl 100 mg Orally Once a day at bedtine for sleep 1/2 to 1 tablet Mar, 30 day(s) Active Latuda 60 mg Orally Once a day at supper with food 1 tablet Active [place] Carbonate 300 MG Orally 3 times a day 1 capsule 8h Mar, 30 days Active Mirena 20 MCG/24HR Not-Taking Sprintec 28 0.25-35 MG-MCG Orally Once a day 1 tablet 24h Dec, 30 day(s) Active RESULTS No Results PROCEDURES No Known procedures INSTRUCTIONS MEDICATIONS ADMINISTERED No Known Medications MEDICAL (GENERAL) HISTORY Type Description Date Medical History HELP syndrome Medical History bi-polar Medical History hypertension Medical History hx of seizure x1, isolated Surgical History gallbladder 10/2013 Surgical History 03/2014 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
--- OUTSIDE RECORDS SUMMARY | 2017-12-25 20:25 | XMS REPORT ---
Author ANNA Ferrell [facility] eClinicalWorks Address Unknown Phone Unavailable Care Team Providers Care Signal Timer Name Role Phone ANNA TEJADA CP Unavailable Allergies, Adverse Reactions, Alerts Substance Reaction Event Type N.K.D.A. Info Not Available Non Drug Allergy Problems Problem Type Condition Code Onset Dates Condition Status Assessment Left shoulder pain M25.512 Active Assessment Thoracic back pain M54.6 Active Problem Infections of genitourinary tract in [...] Start Date End Date Status Dosage Mirena [facility] [address]-79 20 MCG/24HR Intrauterine not defined Naproxen [facility] [address]-08 500 MG Orally every 12 hrs Feb 16, 2015 1 tablet as needed Tramadol HCl [facility] [address]-61 50 MG Orally every 8 hrs prn pain Feb 16, 2015 1-2 tablets as needed Cyclobenzaprine HCl [facility] [address]-75 10 MG Orally Three times a day prn back pain Feb 16, 2015 Mar 18, 2015 1 tablet Amoxicillin [facility] [address]-99 500 mg Feb 15, 2015 1 capsule by Oral route 3 times per day for 7 days Procedures Procedure Coding System Code Date Office Visit, Est Pt., Level 3 CPT-4 25528 Feb 16, 2015 Vital Signs Date/Time: Feb 16, 2015 Temperature 97.6 F Weight 266.0 lbs Height 64 in BMI 45.65 Index Blood Pressure Diastolic 72 mmHg Blood Pressure Systolic 125 mmHg Cardiac Monitoring Heart Rate 80 bpm Results No Known Results Summary Purpose eClinicalWorks Submission
--- OUTSIDE RECORDS SUMMARY | 2017-12-25 20:25 | XMS REPORT ---
Author Author OLY DURBIN [facility] Address [address] [place] [address] Care Team Providers Care [employer] Name Role Phone OLY DURBIN Unavailable PROBLEMS Type Condition ICD9-CM Code [id number] Code Onset Dates Condition Status SNOMED Code Problem Bipolar I disorder with depression F31.9 Active 76791669 Problem Amenorrhea N91.2 Active 36038401 Problem Social anxiety disorder F40.10 Active 98491633 Problem Obsessive-compulsive disorder, unspecified type F42.9 Active 400063617 Problem PTSD (post-traumatic stress disorder) F43.10 Active 82948087 Problem Mood disorder F39 Active 50259887 Problem Mixed 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 Active 88537530 ALLERGIES No Information ENCOUNTERS Encounter Location Date Diagnosis [facility] [id number] [place] [address] 74252- 1452 Sep, [facility] [id number] [place] [address] 05461- 8251 Sep, [facility] [address] [place] [address] 19522- 0228 Sep, [facility] [id number] [place] [address] 80363- 9148 August, [facility] [id number] [place] [address] 04030- 4755 August, [facility] [id number] [place] [address] 20177- 6314 August, [facility] [address] [place] [address] 55851- 9249 August, PTSD (post-traumatic stress disorder) F43.10 and Bipolar I disorder with depression F31.9 [facility] [id number] [place] [address] 37552- 2774 August, [facility] [id number] [place] [address] 30994- 6326 Jul, Bipolar I disorder with depression F31.9 ; PTSD (post- traumatic stress disorder) F43.10 ; Mixed obsessional thoughts and acts F42.2 ; Social anxiety disorder F40.10 and BMI 50.0-59.9, adult Z68.43 [facility] [facility] [id number] [place] [address] 91031- 9568 Jul, PTSD (post-traumatic stress disorder) F43.10 and Bipolar I disorder with depression F31.[address] 85687- 9474 Jul, Pelvic pain R10.2 ; Amenorrhea N91.2 and BMI 50.0-59.9, adult Z68.43 [place] [id number] [place] [address] 71601- 4648 Jun, BMI 50.0-59.9, adult Z68.43 ; Bipolar I disorder with depression F31.9 ; PTSD (post-traumatic stress disorder) F43.10 and Mixed obsessional thoughts and acts F42.2 [facility] [address] [place] [address] [place] [address] 61128 -2425 Jun, Other viral agents as the cause of diseases classified elsewhere B97.89 ; Other specified respiratory disorders J98.8 ; Bronchitis J40 and Cough R05 [address] [place] [address] 85812- 1166 Jun, PTSD (post-traumatic stress disorder) F43.10 [place] [id number] [place] [address] 60161- 6895 Jun, PTSD (post-traumatic stress disorder) F43.10 and Bipolar I disorder with depression F31.9 [place] [id number] [place] [address] 19509- 7758 May, PTSD (post-traumatic stress disorder) F43.10 and Bipolar I disorder with depression F31.9 [place] [id number] [place] [address] 31700- 4823 12 May, 2017 [facility] [id number] [place] [address] 45930- 0286 07 May, 2017 PTSD (post-traumatic stress disorder) F43.10 and Bipolar I disorder with depression F31.9 [facility] [id number] [place] [address] 98076- 3987 Apr, PTSD (post-traumatic stress disorder) F43.10 and Bipolar I disorder with depression F31.9 [facility] [id number] [place] [address] 69177- 8878 Apr, PTSD (post-traumatic stress disorder) F43.10 and Bipolar I disorder with depression F31.9 [facility] [id number] [place] [address] 40229- 9902 Mar, PTSD (post-traumatic stress disorder) F43.10 ; Obsessive- compulsive disorder, unspecified type F42.9 ; Bipolar I disorder with depression F31.9 and Other fci (current) drug therapy Z79.899 [place] [id number] [place] [address] 83532- 1291 Mar, PTSD (post-traumatic stress disorder) F43.10 and Bipolar I disorder with depression F31.9 [facility] [id number] [place] [address] 64177- 8846 Feb, PTSD (post-traumatic stress disorder) F43.10 and Bipolar I disorder with depression F31.9 [place] [facility] [id number] [place] [address] 07236- 9606 Feb, PTSD (post-traumatic stress disorder) F43.10 and Bipolar I disorder with depression F31.9 [facility] [id number] [place] [address] 21827 -4910 Jan, Strep pharyngitis J02.0 [place] [address] [address]- 8705 16 Jan, 2017 [place] [facility] [id number] [place] [address] 13041- 4944 Jan, [facility] [address] [place] [address] 13024- 0654 Jan, PTSD (post-traumatic stress disorder) F43.10 and Bipolar I disorder with depression F31.9 [facility] [facility] [id number] [place] [address] 61823- 0675 Jan, PTSD (post-traumatic stress disorder) F43.10 and Bipolar I disorder with depression F31.9 [place] [id number] [place] [address] 26417- 8033 Jan, 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 [place] [id number] [place] [address] 85091- 6644 02 Jan, 2017 PTSD (post-traumatic stress disorder) F43.10 ; Obsessive- compulsive disorder, unspecified type F42.9 ; Bipolar I disorder with depression F31.9 and Other fci (current) drug therapy Z79.899 [place] [address] [place] [address] 04411- 6486 27 Dec, 2016 Encounter for IUD removal Z30.432 and control counseling Z30.09 [place] [address] [place] [address] 50749- 4385 Dec, PTSD (post-traumatic stress disorder) F43.10 ; Obsessive- compulsive disorder, unspecified type F42.9 and Bipolar I disorder with depression F31.9 [place] [id number] [place] [address] 79721- 1811 Dec, PTSD (post-traumatic stress disorder) F43.10 and Bipolar I disorder with depression F31.9 [place] [id number] [place] [address] 61578- 0439 Dec, PTSD (post-traumatic stress disorder) F43.10 and Bipolar I disorder with depression F31.9 [facility] [address] [place] [address] 73733- 8353 11 Dec, 2016 Mood disorder F39 [facility] [id number] [place] [address] 17346- 0968 08 Dec, 2016 PTSD (post-traumatic stress disorder) F43.10 ; Mood disorder F39 and Obsessive-compulsive disorder, unspecified type F42.9 [facility] [id number] [address]- 5926 07 Dec, 2016 PTSD (post-traumatic stress disorder) F43.10 and Bipolar I disorder with depression F31.9 [facility] [id number] [place] [address] 38610 -7230 Dec, Adverse drug reaction, initial encounter T88.7XXA [facility] [id number] [place] [address] 40331- 5979 Dec, [facility] [id number] [place] [address] 16764- 8421 Nov, PTSD (post-traumatic stress disorder) F43.10 and Bipolar I disorder with depression F31.9 [facility] [address] [address]- 7169 Nov, PTSD (post-traumatic stress disorder) F43.10 ; Mood disorder F39 and Obsessive-compulsive disorder, unspecified type F42.9 [facility] [address] [address]- 6033 Nov, PTSD (post-traumatic stress disorder) F43.10 and Bipolar I disorder with depression F31.9 [facility] [id number] [place] [address] 00869- 2191 Nov, PTSD (post-traumatic stress disorder) F43.10 and Bipolar I disorder with depression F31.9 [facility] [id number] [place] [address] 65424 -9222 Nov, [facility] [address] [facility] [id number] [address]- 7677 Nov, PTSD (post-traumatic stress disorder) F43.10 and Bipolar I disorder with depression F31.9 [facility] [address] [facility] [id number], [place] [address]- 9736 Nov, PTSD (post-traumatic stress disorder) F43.10 and Bipolar I disorder with depression F31.9 [facility] [address] [facility] [id number], [place] [address]- 2106 Oct, [facility] [id number] [place] [address] 61842- 8819 Oct, PTSD (post-traumatic stress disorder) F43.10 ; Mood disorder F39 and Obsessive-compulsive disorder, unspecified type F42.9 [facility] [id number] [address]- 2986 Oct, PTSD (post-traumatic stress disorder) F43.10 and Bipolar I disorder with depression F31.9 [facility] [address] [facility] [id number], [place] [address]- 8707 Oct, PTSD (post-traumatic stress disorder) F43.10 and Bipolar I disorder with depression F31.9 [facility] [id number] [address]- 2995 Oct, PTSD (post-traumatic stress disorder) F43.10 ; Mood disorder F39 and Obsessive-compulsive disorder, unspecified type F42.9 [facility] [address] [facility] [id number], [place] [address]- 2024 Oct, [facility] [id number] [address]- 3306 Oct, PTSD (post-traumatic stress disorder) F43.10 and Bipolar I disorder with depression F31.9 [facility] [id number] [address]- 6534 Oct, PTSD (post-traumatic stress disorder) F43.10 ; Mood disorder F39 and Obsessive-compulsive disorder, unspecified type F42.9 [facility] [address] [place] [address] 79439- 7426 Sep, PTSD (post-traumatic stress disorder) F43.10 and Bipolar I disorder with depression F31.9 [facility] [id number] [place] [address] 68467- 7606 Sep, PTSD (post-traumatic stress disorder) F43.10 ; Mood disorder F39 and Obsessive-compulsive disorder, unspecified type F42.9 [facility] [id number] [place] [address] 92636- 4696 Sep, PTSD (post-traumatic stress disorder) F43.10 and Bipolar I disorder with depression F31.9 [facility] [id number] [place] [address] 59473- 3436 Sep, PTSD (post-traumatic stress disorder) F43.10 and Bipolar I disorder with depression F31.9 [facility] [id number] [place] [address] 47059- 0435 August, PTSD (post-traumatic stress disorder) F43.10 and Bipolar I disorder with depression F31.9 [facility] [address] [place] [address] 30631 -2984 August, Pharyngitis due to other organism J02.8 [facility] [id number] [place] [address] 73461- 9490 August, PTSD (post-traumatic stress disorder) F43.10 ; Bipolar 1 disorder, mixed F31.60 and Other fci (current) drug therapy Z79.899 [place] [id number] [place] [address] 10440- 7528 August, PTSD (post-traumatic stress disorder) F43.10 and Bipolar I disorder with depression F31.9 [facility] [id number] [place] [address] 43749- 8759 Jul, PTSD (post-traumatic stress disorder) F43.10 and Bipolar I disorder with depression F31.9 [place] [address] [place] [address] 77505- 8059 Jul, PTSD (post-traumatic stress disorder) F43.10 and Bipolar I disorder with depression F31.9 [place] [address] [place] [address] 46102- 2992 Jul, PTSD (post-traumatic stress disorder) F43.10 and Bipolar I disorder with depression F31.9 [place] [id number] [place] [address] 20997- 5036 Jul, 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 [place] [id number] [place] [address] 57640- 1736 Jun, PTSD (post-traumatic stress disorder) F43.10 and Bipolar I disorder with depression F31.9 [place] [id number] [place] [address] 00202- 7961 Jun, Bipolar 1 disorder, mixed F31.60 ; PTSD (post-traumatic stress disorder) F43.10 and 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 [place] [id number] [place] [address] 12752- 6830 Jun, PTSD (post-traumatic stress disorder) F43.10 and Depression , unspecified depression type F32.9 [place] [address] [place] [address] 71927- 8470 Jun, PTSD (post-traumatic stress disorder) F43.10 and Depression , unspecified depression type F32.9 [place] [id number] [place] [address] 16918- 0256 Jun, PTSD (post-traumatic stress disorder) F43.10 and Depression , unspecified depression type F32.9 [facility] [address] [place] [address] 46166 -2269 May, Fever, unspecified fever cause R50.9 and Gastroenteritis K52.9 [facility] [id number] [place] [address] 14464- 6534 Mar, Sprain of other ligament of right ankle, subsequent encounter S93.491D [facility] [id number] [place] [address] 32208- 7844 Mar, [facility] [address] 78690 -4681 Feb, Scabies infestation B86 [place] [id number] [place] [address] 32599- 9930 Feb, Dental caries K02.9 [place] [id number] [place] [address] 44132- 0887 Jan, [facility] [id number] [place] [address] 62064 -9388 Jan, Pharyngitis, unspecified etiology J02.9 [place] [id number] [place] [address] 20184- 2548 Jan, [place] [id number] [place] [address] 84127- 8757 Jan, Bipolar affective disorder, remission status unspecified F31.9 [place] [id number] [place] [address] 21454- 8998 Jan, Encounter for dental examination and cleaning without abnormal findings Z01.20 [place] [id number] [place] [address] 48944- 1253 Jan, Bipolar affective disorder, remission status unspecified F31.9 [place] [id number] [place] [address] 34236- 8503 Dec, Bipolar affective disorder, remission status unspecified F31.9 and Depression, unspecified depression type F32.9 [place] [id number] [place] [address] 14737- 0568 12 Sep, 2016 Unspecified mood [affective] disorder F39 and Generalized anxiety disorder F41.1 [facility] [id number] [place] [address] 59025- 9853 08 Dec, 2015 Depression, unspecified depression type F32.9 [facility] [id number] [place] [address] 68242- 8694 Nov, Dental caries K02.9 [facility] [address] 37104- 6165 Nov, Dental examination Z01.20 [place] [address] 12083- 4451 Sep, Bipolar affective disorder, remission status unspecified F31.9 [place] [address] 11940- 1753 August, Tension headache G44.209 [facility] [address] 19817 -8173 Jul, [facility] [address] 32229 -9187 Jul, Upper respiratory infection J06.9 and Gastroenteritis K52.9 [place] [id number] [place] [address] 03374- 3469 Jun, Bronchitis J40 [facility] [address] 07450 -1783 Feb, Thoracic back pain M54.6 and Left shoulder pain M25.512 [facility] [id number] [place] [address] 01497- 1625 05 Feb, 2015 [facility] [address] 71248- 2097 14 Jul, 2014 [facility] [address] 79909- 0841 13 Jul, 2014 [facility] [address] 46186- 9459 Apr, [facility] [place] [facility] [address] [id number] [place] [address]- 3802 Apr, [facility] [place] [facility] [address] [id number] [place] [address]- 7170 Apr, [facility] [place] [facility] [address] [id number] [place] [address]- 5562 Apr, [facility] [place] [facility] [address] [id number] [place] [address]- 2114 Mar, [facility] [place] [facility] [address] [id number] [place] [address]- 5046 Mar, [facility] [place] [facility] [address] [id number] [place] [address]- 5784 Mar, [facility] [place] [facility] [address] [id number] [place] [address]- 9926 Mar, [facility] [place] [facility] [address] [id number] [place] [address]- 8014 Feb, [facility] [place] [facility] [address] [id number] [place] [address]- 3931 Feb, [facility] [place] [facility] [address] [id number] [place] [address]- 1282 Feb, [facility] [place] [facility] [address] [id number], [place] [address]- 5709 Feb, [facility] [place] [facility] [address] [id number], [place] [address]- 7498 Jan, [facility] [place] [facility] [address] [id number] [place] [address]- 0605 Jan, [facility] [place] [facility] [address] [id number] [place] [address]- 6868 Jan, [facility] [place] [facility] [address] [id number] [place] [address]- 9829 Jan, [facility] [place] [facility] [address] [id number] [place] [address]- 7214 Jan, [facility] [place] [facility] [address] [id number] [place] [address]- 2813 Jan, [facility] [place] [facility] [address] [id number] [place] [address]- 0546 Dec, [facility] [place] [facility] [address] [id number] [place] [address]- 5290 Dec, [facility] [place] [facility] [address] [id number] [place] [address]- 3094 Nov, [facility] [place] [facility] [address] [id number] [place] [address]- 2325 Nov, [facility] [place] [facility] [address] [id number] [place] [address]- 9006 Nov, [facility] [place] [facility] [address] [id number] [place] [address]- 4140 Nov, [facility] [place] [facility] [address] [id number] [place] [address]- 0913 Nov, [facility] [place] [facility] [address] [id number] [place] [address]- 1827 Nov, [facility] [place] [facility] [address] [id number] [place] [address]- 9879 Nov, [facility] [place] [facility] [address] [id number] [place] [address]- 1504 Nov, [facility] [place] [facility] [address] [id number] [place] [address]- 2971 Nov, [facility] [place] [facility] [address] [id number] [place] [address]- 6549 Oct, [facility] [place] [facility] [address] [id number] [place] [address]- 9128 Oct, [facility] [place] [facility] [address] [id number] [place] [address]- 0149 Oct, [facility] [place] [facility] [address] [id number] [place] [address]- 3799 Oct, 2013 [facility] [place] [facility] [address] [id number] [place] [address]- 7960 Oct, 2013 [facility] [place] [facility] [address] [id number] [place] [address]- 8807 Oct, 2013 [facility] [place] [facility] [address] [id number] [place] [address]- 8776 Oct, 2013 [facility] [place] [facility] [address] [id number] [place] [address]- 0899 Oct, 2013 [facility] [place] [facility] [address] [id number] [place] [address]- 0512 Oct, [facility] [place] [facility] [address] [id number] [place] [address]- 7126 Oct, 2013 [facility] [place] [facility] [address] [id number] [place] [address]- 0238 Oct, 2013 [facility] [place] [facility] [address] [id number] [place] [address]- 7934 Oct, [facility] [place] [facility] [address] [id number] [place] [address]- 3139 Oct, 2013 [facility] [place] [facility] [address] [id number] [place] [address]- 6007 Oct, [facility] [place] [facility] [address] [id number] [place] [address]- 0367 Oct, [facility] [place] [facility] [address] [id number] [place] [address]- 1615 Oct, [facility] [place] [facility] [address] [id number] [place] [address]- 7084 Oct, [facility] [place] [facility] [address] [id number] [place] [address]- 8444 Oct, 2013 [facility] [place] [facility] [address] [id number] [place] [address]- 9718 Oct, [facility] [place] [facility] [address] [id number] [place] [address]- 2277 Sep, [facility] [place] [facility] [address] [id number] [place] [address]- 1861 Sep, [facility] [place] [facility] [address] [id number] [place] [address]- 7180 Sep, [facility] [place] [facility] [address] [id number] [place] [address] Sep, [facility] [place] [facility] [address] [id number] [place] [address] Feb, [facility] [place] [facility] [address] [id number] [place] [address] Feb, [facility] [place] [facility] [address] [id number] [place] [address] Dec, [facility] [place] [facility] [address] [id number] [place] [address] Dec, [facility] [place] [facility] [address] [id number] [place] [address] Nov, [facility] [place] [facility] [address] [id number] [place] [address] Nov, [facility] [place] [facility] [address] [id number] [place] [address] Nov, [facility] [place] [facility] [address] [id number] [place] [address] Nov, [facility] [place] [facility] [address] [id number] [place] [address] Nov, [facility] [place] [facility] [address] [id number] [place] [address] Nov, [facility] [place] [facility] [address] [id number] [place] [address] Oct, [facility] [place] [facility] [address] [id number] [place] [address] Apr, [facility] [place] [facility] [address] [id number] [place] [address] August, [facility] [place] [facility] [address] [id number] [place] [address] August, [facility] [place] [facility] [address] [id number] [place] [address] August, [facility] [place] [facility] [address] [id number] [place] [address] Jul, [facility] [place] [facility] [address] [id number] [place] [address] Jun, [facility] [place] [facility] [address] [id number] [place] [address] Jun, [facility] [place] [facility] [address] [id number] [place] [address] Jun, [facility] [place] [facility] [address] [id number] [place] [address] Jun, [facility] [place] [facility] [address] [id number] [place] [address] Jun, [facility] [place] [facility] [address] [id number] [place] [address] Jun, [facility] [place] [facility] [address] [id number] [place] [address] May, [facility] [place] [facility] [address] [id number] [place] [address] May, [facility] [place] [facility] [address] [id number] [place] [address] May, [facility] [place] [facility] [address] [id number] [place] [address] May, [facility] [place] [facility] [address] [id number], [place] [address] 06 May, 2011 [facility] [address] [facility] [id number], [place] [address] 06 May, 2011 [facility] [address] [facility] [id number], [place] [address] Apr, [facility] [id number], [place] [address] Mar, [facility] [address] [facility] [id number], [place] [address] Mar, [facility] [address] [facility] [id number] [place] [address] Feb, [facility] [address] [facility] [id number][place] [address] Jan, [facility] [id number], [place] [address] Mar, [facility] [id number], [place] [address] 15 Mar, 2009 [facility] [id number], [place] [address] Mar, [facility] [id number], [place] [address] Mar, [facility] [id number], [place] [address] Mar, [facility] [address] [facility] [id number], [place] [address] 16 Feb, 2009 [facility] [address] [facility] [id number], [place] [address] 02 Feb, 2009 [facility] [address] [facility] [id number], [place] [address] 17 Nov, 2008 [facility] [id number] [address] 10 May, 2008 IMMUNIZATIONS No Known Immunizations SOCIAL HISTORY Never Assessed REASON FOR VISIT Follow-up PTSD/Bipolar Disorder PLAN OF CARE Activity Details Follow Up 1 Week Reason: Follow-up VITAL SIGNS MEDICATIONS Unknown Medications RESULTS No Results PROCEDURES Procedure Date Ordered Result Body Site Psychotherapy, patient &/family, 45 minutes, established patient Jan 16, 2017 INSTRUCTIONS MEDICATIONS ADMINISTERED No Known Medications MEDICAL (GENERAL) HISTORY Type Description Date Medical History HELP syndrome Medical History bi-polar Medical History hypertension Medical History hx of seizure x1, isolated Surgical History gallbladder 10/2013 Surgical History 03/2014 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
--- OUTSIDE RECORDS SUMMARY | 2017-12-25 20:26 | XMS REPORT ---
Author Author ARIADNE SWANSON Organization [employer] Address Unknown Phone Unavailable Care Team Providers Care Food And Nutrition Professor Name Role Phone ARIADNE SWANSON CP Unavailable Allergies No Known Allergies Problems Problem [...] for iron deficiency anemia V78.0 Active Medications No Known Medications Results No Known Results Summary Purpose [employer] Submission
--- OUTSIDE RECORDS SUMMARY | 2017-12-25 20:26 | XMS REPORT ---
Author Author OLY DURBIN [facility] Address [address] [place] [address] Care Team Providers Care Cps Team Lead Name Role Phone OLY DURBNI Unavailable PROBLEMS Type Condition ICD9-CM Code [id number] Code Onset Dates Condition Status SNOMED Code Problem Bipolar I disorder with depression F31.9 Active 18064969 Problem Amenorrhea N91.2 Active 99162004 Problem Social anxiety disorder F40.10 Active 43466319 Problem Obsessive-compulsive disorder, unspecified type F42.9 Active 236205157 Problem PTSD (post-traumatic stress disorder) F43.10 Active 83368352 Problem Mood disorder F39 Active 88594240 Problem 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 Active 35292423 ALLERGIES No Information ENCOUNTERS Encounter Location Date Diagnosis [place] [id number] [place] [address] 04657- 5099 Sep, [place] [address] [place] [id number] [place] [address] 41317- 2326 Sep, [place] [address] [place] [id number] [place] [address] 02461- 7425 Sep, [facility] [address] [place] [id number] [place] [address] 45435- 9702 August, [facility] [address] [place] [id number] [place] [address] 22132- 0991 August, [facility] [address] [place] [id number] [place] [address] 90565- 6862 August, Bipolar I disorder with depression F31.9 ; PTSD (post- traumatic stress disorder) F43.10 ; Mixed obsessional thoughts and acts F42.2 ; Social anxiety disorder F40.10 and BMI 50.0-59.9, adult Z68.43 [facility] [address] [place] [address] 85435- 5830 August, [place] [address] [place] [id number] [place] [address] 40645- 6047 August, [place] [address] [place] [id number] [place] [address] 98780- 3871 August, PTSD (post-traumatic stress disorder) F43.10 and Bipolar I disorder with depression F31.9 [place] [address] [place] [id number] [place] [address] 78975- 9999 August, [place] [address] [place] [id number] [place] [address] 85159- 9634 Jul, Bipolar I disorder with depression F31.9 ; PTSD (post- traumatic stress disorder) F43.10 ; Mixed obsessional thoughts and acts F42.2 ; Social anxiety disorder F40.10 and BMI 50.0-59.9, adult Z68.43 [place] [address] [place] [id number] [place] [address] 67990- 9040 Jul, PTSD (post-traumatic stress disorder) F43.10 and Bipolar I disorder with depression F31.9 [place] [address] [place] [id number] [place] [address] 88190- 8901 Jul, Pelvic pain R10.2 ; Amenorrhea N91.2 and BMI 50.0-59.9, adult Z68.43 [place] [address] [place] [id number] [place] [address] 07334- 1856 Jun, BMI 50.0-59.9, adult Z68.43 ; Bipolar I disorder with depression F31.9 ; PTSD (post-traumatic stress disorder) F43.10 and Mixed obsessional thoughts and acts F42.2 [facility] [address] [place] [id number] [place] [address] 13078 -0716 Jun, Other viral agents as the cause of diseases classified elsewhere B97.89 ; Other specified respiratory disorders J98.8 ; Bronchitis J40 and Cough R05 [place] [address] [place] [address] [address] 7421 13 Jun, 2017 PTSD (post-traumatic stress disorder) F43.10 [place] [address] [place] [id number] [place] [address] 01672- 9959 13 Jun, 2017 PTSD (post-traumatic stress disorder) F43.10 and Bipolar I disorder with depression F31.9 [place] [address] [place] [id number] [place] [address] 42408- 2196 13 May, 2017 PTSD (post-traumatic stress disorder) F43.10 and Bipolar I disorder with depression F31.9 [place] [address] [place] [id number] [place] [address] 85747- 3625 12 May, 2017 [place] [address] [place] [id number] [place] [address] 55274- 8182 07 May, 2017 PTSD (post-traumatic stress disorder) F43.10 and Bipolar I disorder with depression F31.9 [place] [address] [place] [id number] [place] [address] 04422- 7024 Apr, PTSD (post-traumatic stress disorder) F43.10 and Bipolar I disorder with depression F31.9 [place] [address] [place] [id number] [place] [address] 61725- 4534 Apr, PTSD (post-traumatic stress disorder) F43.10 and Bipolar I disorder with depression F31.9 [place] [address] [place] [id number] [place] [address] 24201- 3663 Mar, PTSD (post-traumatic stress disorder) F43.10 ; Obsessive- compulsive disorder, unspecified type F42.9 ; Bipolar I disorder with depression F31.9 and Other intermodal customer service (current) drug therapy Z79.899 [place] [address] [place] [id number] [place] [address] 25831- 1672 Mar, PTSD (post-traumatic stress disorder) F43.10 and Bipolar I disorder with depression F31.9 [place] [address] [place] [id number] [place] [address] 06719- 4483 Feb, PTSD (post-traumatic stress disorder) F43.10 and Bipolar I disorder with depression F31.9 [facility] [address] [place] [address] [id number] [place] [address] 59093- 4395 Feb, PTSD (post-traumatic stress disorder) F43.10 and Bipolar I disorder with depression F31.9 [facility] [address] [place] [id number] [place] [address] 37939 -9397 Jan, Strep pharyngitis J02.0 [facility] [address] [place] [id number] [place] [address] 67497- 9236 Jan, [place] [address] [place] [id number] [place] [address] 17086- 6553 Jan, [facility] [address] [place] [id number] [place] [address] 54112- 7725 Jan, PTSD (post-traumatic stress disorder) F43.10 and Bipolar I disorder with depression F31.9 [facility] [address] [place] [id number] [place] [address] 46989- 3902 Jan, PTSD (post-traumatic stress disorder) F43.10 and Bipolar I disorder with depression F31.9 [facility] [address] [place] [id number] [place] [address] 24400- 6141 Jan, Other care home (current) drug therapy Z79.899 [place] [address] [place] [address] 74354- 6503 Jan, PTSD (post-traumatic stress disorder) F43.10 ; Obsessive- compulsive disorder, unspecified type F42.9 ; Bipolar I disorder with depression F31.9 and Other inter[employer] customer service (current) drug therapy Z79.899 [place] [address] [place] [id number] [place] [address] 41888- 8809 Dec, Encounter for IUD removal Z30.432 and control counseling Z30.09 [place] [address] [place] [id number] [place] [address] 94683- 7062 Dec, PTSD (post-traumatic stress disorder) F43.10 ; Obsessive- compulsive disorder, unspecified type F42.9 and Bipolar I disorder with depression F31.9 [facility] [address] [address]- 2153 Dec, PTSD (post-traumatic stress disorder) F43.10 and Bipolar I disorder with depression F31.9 [facility] [address] [place] [address] 74760- 7539 Dec, PTSD (post-traumatic stress disorder) F43.10 and Bipolar I disorder with depression F31.9 [facility] [address] [place] [id number] [place] [address] 36396- 1222 Dec, Mood disorder F39 [facility] [address] [place] [id number] [place] [address] 28853- 4441 08 Dec, 2016 PTSD (post-traumatic stress disorder) F43.10 ; Mood disorder F39 and Obsessive-compulsive disorder, unspecified type F42.9 [facility] [address] [place] [address] 98007- 6742 Dec, PTSD (post-traumatic stress disorder) F43.10 and Bipolar I disorder with depression F31.9 [facility] [address] [address] -6173 Dec, Adverse drug reaction, initial encounter T88.7XXA [facility] [address] [address]- 3910 Dec, [facility] [address] [place] [address] 58802- 0376 Nov, PTSD (post-traumatic stress disorder) F43.10 and Bipolar I disorder with depression F31.9 [facility] [address] [address]- 8837 Nov, PTSD (post-traumatic stress disorder) F43.10 ; Mood disorder F39 and Obsessive-compulsive disorder, unspecified type F42.9 [facility] [address] [place] [id number] [address]- 0325 Nov, PTSD (post-traumatic stress disorder) F43.10 and Bipolar I disorder with depression F31.9 [facility] [address] [place] [id number] [address]- 7576 Nov, PTSD (post-traumatic stress disorder) F43.10 and Bipolar I disorder with depression F31.9 [facility] [address] [address] Nov, [facility] [address] [place] [id number] [address]- 8677 Nov, PTSD (post-traumatic stress disorder) F43.10 and Bipolar I disorder with depression F31.9 [facility] [address] [address]- 6385 Nov, PTSD (post-traumatic stress disorder) F43.10 and Bipolar I disorder with depression F31.9 [facility] [address] [address]- 5615 Oct, [facility] [address] [place] [address] 15732- 6324 Oct, PTSD (post-traumatic stress disorder) F43.10 ; Mood disorder F39 and Obsessive-compulsive disorder, unspecified type F42.9 [facility] [address] [address]- 7656 Oct, PTSD (post-traumatic stress disorder) F43.10 and Bipolar I disorder with depression F31.9 [facility] [address] [place] [id number] [address]- 3268 Oct, PTSD (post-traumatic stress disorder) F43.10 and Bipolar I disorder with depression F31.9 [facility] [address] [place] [address] [id number] [address]- 9827 Oct, PTSD (post-traumatic stress disorder) F43.10 ; Mood disorder F39 and Obsessive-compulsive disorder, unspecified type F42.9 [facility] [address] [address]- 4454 Oct, [facility] [address] [place] [id number] [place] [address] 31745- 9562 Oct, PTSD (post-traumatic stress disorder) F43.10 and Bipolar I disorder with depression F31.9 [facility] [address] [place] [address] 06813- 3542 Oct, PTSD (post-traumatic stress disorder) F43.10 ; Mood disorder F39 and Obsessive-compulsive disorder, unspecified type F42.9 [facility] [address] [place] [id number] [place] [address] 09589- 7427 Sep, PTSD (post-traumatic stress disorder) F43.10 and Bipolar I disorder with depression F31.9 [facility] [address] [place] [id number] [place] [address] 16854- 0271 Sep, PTSD (post-traumatic stress disorder) F43.10 ; Mood disorder F39 and Obsessive-compulsive disorder, unspecified type F42.9 [facility] [address] [place] [address] 75282- 3336 Sep, PTSD (post-traumatic stress disorder) F43.10 and Bipolar I disorder with depression F31.9 [facility] [address] [address]- 7579 Sep, PTSD (post-traumatic stress disorder) F43.10 and Bipolar I disorder with depression F31.9 [facility] [address] [address]- 5491 August, PTSD (post-traumatic stress disorder) F43.10 and Bipolar I disorder with depression F31.9 [facility] [address] [place] [address] 45766 -6705 August, Pharyngitis due to other organism J02.8 [facility] [address] [place] [id number] [place] [address] 12843- 5324 August, PTSD (post-traumatic stress disorder) F43.10 ; Bipolar 1 disorder, mixed F31.60 and Other care home (current) drug therapy Z79.899 [facility] [address] [place] [id number] [place] [address] 63140- 9140 August, PTSD (post-traumatic stress disorder) F43.10 and Bipolar I disorder with depression F31.9 [facility] [address] [place] [id number] [place] [address] 59732- 0309 Jul, PTSD (post-traumatic stress disorder) F43.10 and Bipolar I disorder with depression F31.9 [facility] [address] [place] [id number] [place] [address] 58601- 9424 Jul, PTSD (post-traumatic stress disorder) F43.10 and Bipolar I disorder with depression F31.9 [facility] [address] [place] [id number] [place] [address] 15461- 2556 Jul, PTSD (post-traumatic stress disorder) F43.10 and Bipolar I disorder with depression F31.9 [facility] [address] [place] [id number] [place] [address] 05806- 9817 Jul, Other care home (current) drug therapy Z79.899 [facility] [address] [place] [id number] [place] [address] 99683- 1651 Jun, PTSD (post-traumatic stress disorder) F43.10 and Bipolar I disorder with depression F31.9 [facility] [address] [place] [id number] [place] [address] 01059- 8165 Jun, Bipolar 1 disorder, mixed F31.60 ; PTSD (post-traumatic stress disorder) F43.10 and Other inter[employer] customer service (current) drug therapy Z79.899 [facility] [address] [place] [id number] [place] [address] 95897- 4078 Jun, PTSD (post-traumatic stress disorder) F43.10 and Depression , unspecified depression type F32.9 [facility] [address] [place] [id number] [place] [address] 89535- 0045 Jun, PTSD (post-traumatic stress disorder) F43.10 and Depression , unspecified depression type F32.9 [place] [address] [place] [id number] [place] [address] 44071- 2562 Jun, PTSD (post-traumatic stress disorder) F43.10 and Depression , unspecified depression type F32.9 [facility] [address] 23094 -3194 May, Fever, unspecified fever cause R50.9 and Gastroenteritis K52.9 [place] [address] 18487- 4517 Mar, Sprain of other ligament of right ankle, subsequent encounter S93.491D [place] [address] 08735- 4184 Mar, [facility] [place] [address] 62300 -9638 Feb, Scabies infestation B86 [place] [address] 64346- 1501 Feb, Dental caries K02.9 [place] [address] 92424- 6524 Jan, [facility] [place] [address] [place] [id number] [place] [address] 62864 -0678 Jan, Pharyngitis, unspecified etiology J02.9 [place] [address] [place] [id number] [place] [address] 64352- 0165 Jan, [place] [address] 12845- 2873 Jan, Bipolar affective disorder, remission status unspecified F31.9 [place] [address] [place] [id number] [place] [address] 52613- 6612 Jan, Encounter for dental examination and cleaning without abnormal findings Z01.20 [place] [address] [place] [id number] [place] [address] 74538- 4573 Jan, Bipolar affective disorder, remission status unspecified F31.9 [place] [address] [place] [id number] [place] [address] 27032- 8381 29 Dec, 2015 Bipolar affective disorder, remission status unspecified F31.9 and Depression, unspecified depression type F32.9 [place] [address] [place] [id number] [place] [address] 00663- 4797 Dec, Unspecified mood [affective] disorder F39 and Generalized anxiety disorder F41.1 [place] [address] [place] [id number] [place] [address] 26997- 9342 08 Dec, 2015 Depression, unspecified depression type F32.9 [place] [address] [place] [id number] [place] [address] 41354- 9140 Nov, Dental caries K02.9 [place] [address] [place] [id number] [place] [address] 80482- 1810 Nov, Dental examination Z01.20 [place] [address] [place] [id number] [place] [address] 13893- 4679 Sep, Bipolar affective disorder, remission status unspecified F31.9 [place] [address] [place] [id number] [place] [address] 55890- 6442 August, Tension headache G44.209 [facility] [address] [place] [id number] [place] [address] 90797 -6747 Jul, [facility] [address] [place] [id number] [place] [address] 68061 -3967 Jul, Upper respiratory infection J06.9 and Gastroenteritis K52.9 [place] [address] [place] [id number] [place] [address] 54445- 3136 Jun, Bronchitis J40 [facility] [address] [place] [id number] [place] [address] 49051 -6311 05 Feb, 2015 Thoracic back pain M54.6 and Left shoulder pain M25.512 [facility] [place] [facility] [address] [id number] [place] [address]- 1940 05 Feb, 2015 [facility] [place] [facility] [address] [id number] [place] [address]- 5380 14 Jul, 2014 [facility] [place] [facility] [address] [id number] [place] [address]- 3430 Jul, [facility] [place] [facility] [address] [id number] [place] [address]- 6640 Apr, [facility] [place] [facility] [address] [id number] [place] [address]- 5471 Apr, [facility] [place] [facility] [address] [id number] [place] [address]- 9229 Apr, [facility] [place] [facility] [address] [id number] [place] [address]- 2177 Apr, [facility] [place] [facility] [address] [id number] [place] [address]- 1887 Mar, [facility] [place] [facility] [address] [id number] [place] [address]- 4042 Mar, [facility] [place] [facility] [address] [facility] [id number] [place] [address]- 9737 Mar, [facility] [place] [facility] [address] [id number] [place] [address]- 9868 Mar, [facility] [place] [facility] [address] [id number] [address]- 5781 Feb, [facility] [place] [facility] [address] [id number] [place] [address]- 5576 Feb, [facility] [place] [facility] [address] [id number] [place] 5772 Feb, [facility] [place] [facility] [address] [facility] [id number] [place] 7495 Feb, [facility] [place] [facility] [address] [id number] [place] [address]- 7360 15 Jan, 2014 [facility] [place] [facility] [address] [id number] [place] [address]- 0288 15 Jan, 2014 [facility] [place] [facility] [address] [id number] [place] [address]- 0246 14 Jan, 2014 [facility] [place] [facility] [address] [id number] [place] [address]- 0721 14 Jan, 2014 [facility] [place] [facility] [address] [id number] [place] [address]- 8877 13 Jan, 2014 [facility] [place] [facility] [address] [id number] [place] [address]- 9339 Jan, [facility] [place] [facility] [address] [id number] [place] [address]- 6505 15 Dec, 2013 [facility] [place] [facility] [address] [id number] [place] [address]- 0589 Dec, [facility] [place] [facility] [address] [id number] [place] [address]- 5734 Nov, [facility] [place] [facility] [address] [id number] [place] [address]- 1573 Nov, [facility] [place] [facility] [address] [id number] [place] [address]- 4396 Nov, [facility] [place] [facility] [address] [id number] [place] [address]- 2790 Nov, [facility] [place] [facility] [address] [id number] [place] [address]- 6681 Nov, [facility] [place] [facility] [address] [id number] [place] [address]- 1194 Nov, [facility] [place] [facility] [address] [id number] [place] [address]- 5705 Nov, [facility] [place] [facility] [address] [id number] [place] [address]- 9137 Nov, [facility] [place] [facility] [address] [id number] [place] [address]- 7787 Nov, [facility] [place] [facility] [address] [id number] [place] [address]- 9967 Oct, [facility] [place] [facility] [address] [id number] [place] [address]- 2980 Oct, [facility] [place] [facility] [address] [id number] [place] [address]- 1020 Oct, [facility] [place] [facility] [address] [id number] [place] [address]- 8047 Oct, [facility] [place] [facility] [address] [id number] [place] [address]- 5531 Oct, [facility] [place] [facility] [address] [id number] [place] [address]- 3360 Oct, [facility] [place] [facility] [address] [id number] [place] [address]- 3454 Oct, [facility] [place] [facility] [address] [id number] [place] [address]- 0123 Oct, [facility] [place] [facility] [address] [id number] [place] [address]- 3581 Oct, [facility] [place] [facility] [address] [id number] [place] [address]- 8206 Oct, [facility] [place] [facility] [address] [id number] [place] [address]- 1402 Oct, [facility] [place] [facility] [address] [id number] [place] [address]- 7256 Oct, [facility] [place] [facility] [address] [id number] [place] [address]- 8653 Oct, [facility] [place] [facility] [address] [id number] [place] [address]- 6041 Oct, [facility] [place] [facility] [address] [id number] [place] [address]- 8936 Oct, [facility] [place] [facility] [address] [id number] [place] [address]- 5370 Oct, [facility] [place] [facility] [address] [id number] [place] [address]- 2332 Oct, [facility] [place] [facility] [address] [id number] [place] [address]- 3880 Oct, [facility] [place] [facility] [address] [id number] [place] [address]- 7011 Oct, [facility] [place] [facility] [address] [id number] [place] [address]- 6505 Sep, [facility] [place] [facility] [address] [id number] [place] [address] Sep, [facility] [place] [facility] [address] [id number] [place] [address] Sep, [facility] [place] [facility] [address] [id number] [place] [address] Sep, [facility] [place] [facility] [address] [id number] [place] [address] Feb, [facility] [place] [facility] [address] [id number] [place] [address] Feb, [facility] [place] [facility] [address] [id number] [address] Dec, [facility] [place] [facility] [address] [id number], [place] [address] Dec, [facility] [place] [facility] [address] [id number] [place] [address] Nov, [facility] [place] [facility] [address] [id number] [place] [address] Nov, [facility] [place] [facility] [address] [id number] [place] [address] Nov, [facility] [place] [facility] [address] [id number] [place] [address] Nov, [facility] [address] [id number] [place] [address] Nov, [facility] [address] [id number] [place] [address] Nov, [facility] [address] [id number] [place] [address] Oct, [facility] [address] [id number] [place] [address] Apr, [facility] [address] [id number] [place] [address] August, [facility] [address] [id number] [place] [address] August, [facility] [address] [id number] [place] [address] August, [facility] [address] [id number] [place] [address] Jul, [facility] [address] [address] [id number] [place] [address] Jun, [facility] [address] [id number] [place] [address] Jun, [facility] [address] [id number] [place] [address] Jun, [facility] [address] [id number] [place] [address] Jun, [facility] [place] [facility] [address] [id number] [place] [address] Jun, [facility] [place] [facility] [address] [id number] [place] [address] Jun, [facility] [address] [id number] [place] [address] May, [facility] [place] [facility] [address] [id number] [place] [address] 16 May, 2011 [facility] [place] [facility] [address] [id number] [place] [address] 09 May, 2011 [facility] [place] [facility] [address] [id number] [place] [address] 07 May, 2011 [facility] [place] [facility] [address] [id number] [place] [address] May, [facility] [address] [id number] [place] [address] May, [facility] [place] [facility] [address] [id number] [place] [address] Apr, [facility] [place] [facility] [address] [facility] [id number] [place] [address] 07 Mar, 2011 [facility] [place] [facility] [address] [id number] [address] Mar, [facility] [place] [facility] [address] [facility] [id number], [place] [address] Feb, [facility] [place] [facility] [address] [facility] [id number], [place] [address] 13 Jan, 2011 [facility] [place] [facility] [address] [facility] [id number], [place] [address] 31 Mar, 2009 [facility] [place] [facility] [address] [id number], [place] [address] 15 Mar, 2009 [facility] [place] [facility] [address] [facility] [id number] [place] [address] 10 Mar, 2009 [facility] [place] [facility] [address] [id number][place] [address] 10 Mar, 2009 [facility] [place] [facility] [address] [facility] [id number][place] [address] 02 Mar, 2009 [facility] [place] [facility] [address] [facility] [id number] [place] [address] Feb, [facility] [address] [facility] [id number], [place] [address] Feb, [facility] [address] [facility] [id number][place] [address] Nov, [facility] [address] [facility] [id number], [place] [address] May, IMMUNIZATIONS No Known Immunizations SOCIAL HISTORY Never Assessed REASON FOR VISIT Follow-up PTSD/Bipolar Disorder PLAN OF CARE Activity Details Follow Up 2 Weeks Reason: Follow-up VITAL SIGNS MEDICATIONS Unknown Medications RESULTS No Results PROCEDURES Procedure Date Ordered Result Body Site Psychotherapy, patient &/family, 45 minutes, established patient Feb 18, 2017 INSTRUCTIONS MEDICATIONS ADMINISTERED No Known Medications MEDICAL (GENERAL) HISTORY Type Description Date Medical History HELP syndrome Medical History bi-polar Medical History hypertension Medical History hx of seizure x1, isolated Surgical History gallbladder 10/2013 Surgical History 03/2014 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
--- OUTSIDE RECORDS SUMMARY | 2017-12-25 20:27 | XMS REPORT ---
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 Phone [place] Unavailable PROBLEMS Type Condition ICD9-CM Code [id number] Code Onset Dates Condition Status SNOMED Code Problem Bipolar I disorder with depression F31.9 Active 34902249 Problem Amenorrhea N91.2 Active 87513488 Problem Social anxiety disorder F40.10 Active 86438296 Problem Obsessive-compulsive disorder, unspecified type F42.9 Active 324380416 Problem PTSD (post-traumatic stress disorder) F43.10 Active 76543490 Problem Mood disorder F39 Active 52988712 Problem Mixed obsessional thoughts and acts F42.2 Active 06451895 ALLERGIES Substance Reaction Event Type Date Status Lamictal rash/blisters Drug Allergy Dec, Active Azithromycin hives Drug Allergy Dec, Active ORAGEL Unknown Non Drug Allergy Dec, Active ENCOUNTERS Encounter Location Date Diagnosis [facility] [id number] [place] [address] 75713- 1299 Sep, [facility] [id number] [place] [address] 04139- 7847 Sep, [facility] [id number] [place] [address] 65555- 0644 Sep, [facility] [id number] [place] [address] 86966- 8906 August, [facility] [id number] [place] [address] 68927- 6476 August, [facility] [address] [address] 9089 August, [facility] [id number] [place] [address] 68529- 6959 August, PTSD (post-traumatic stress disorder) F43.10 and Bipolar I disorder with depression F31.9 [place] [facility] [id number] [place] [address] 51895- 7196 August, [facility] [id number] [place] [address] 72949- 1636 Jul, Bipolar I disorder with depression F31.9 ; PTSD (post- traumatic stress disorder) F43.10 ; Mixed obsessional thoughts and acts F42.2 ; Social anxiety disorder F40.10 and BMI 50.0-59.9, adult Z68.43 [place] [facility] [id number] [place] [address] 79922- 0731 Jul, PTSD (post-traumatic stress disorder) F43.10 and Bipolar I disorder with depression F31.9 [place] [address] 45505- 6217 Jul, Pelvic pain R10.2 ; Amenorrhea N91.2 and BMI 50.0-59.9, adult Z68.43 [place] [id number] [place] [address] 95815- 3829 Jun, BMI 50.0-59.9, adult Z68.43 ; Bipolar I disorder with depression F31.9 ; PTSD (post-traumatic stress disorder) F43.10 and Mixed obsessional thoughts and acts F42.2 [facility] [id number] [place] [address] 00784 -2662 Jun, Other viral agents as the cause of diseases classified elsewhere B97.89 ; Other specified respiratory disorders J98.8 ; Bronchitis J40 and Cough R05 [id number] [place] [address] 69176- 5665 Jun, PTSD (post-traumatic stress disorder) F43.10 [facility] [id number] [place] [address] 71418- 9462 Jun, PTSD (post-traumatic stress disorder) F43.10 and Bipolar I disorder with depression F31.9 [facility] [address] [address] 9671 13 May, 2017 PTSD (post-traumatic stress disorder) F43.10 and Bipolar I disorder with depression F31.9 [facility] [address] [address]- 8682 12 May, 2017 [facility] [id number] [place] [address] 97718- 0844 May, PTSD (post-traumatic stress disorder) F43.10 and Bipolar I disorder with depression F31.9 [facility] [id number] [place] [address] 29377- 7185 Apr, PTSD (post-traumatic stress disorder) F43.10 and Bipolar I disorder with depression F31.9 [facility] [id number] [place] [address] 98552- 2290 Apr, PTSD (post-traumatic stress disorder) F43.10 and Bipolar I disorder with depression F31.9 [facility] [address] [address]- 5595 Mar, PTSD (post-traumatic stress disorder) F43.10 ; Obsessive- compulsive disorder, unspecified type F42.9 ; Bipolar I disorder with depression F31.9 and Other fdc (current) drug therapy Z79.899 [facility] [id number] [place] [address] 99969- 3906 Mar, PTSD (post-traumatic stress disorder) F43.10 and Bipolar I disorder with depression F31.9 [facility] [id number] [place] [address] 28438- 5228 Feb, PTSD (post-traumatic stress disorder) F43.10 and Bipolar I disorder with depression F31.9 [facility] [id number] [address]- 4373 Feb, PTSD (post-traumatic stress disorder) F43.10 and Bipolar I disorder with depression F31.9 [facility] [address] [address] Jan, Strep pharyngitis J02.0 [facility] [id number] [place] [address] 73339- 9122 Jan, [facility] [id number] [place] [address] 38150- 4283 Jan, [facility] [address] 70956- 6187 Jan, PTSD (post-traumatic stress disorder) F43.10 and Bipolar I disorder with depression F31.9 [facility] [id number] [place] [address] 67445- 6590 Jan, PTSD (post-traumatic stress disorder) F43.10 and Bipolar I disorder with depression F31.9 [facility] [id number] [place] [address] 98989- 9878 Jan, Other fdc (current) drug therapy Z79.899 [facility] [id number] [place] [address] 11739- 2965 Jan, PTSD (post-traumatic stress disorder) F43.10 ; Obsessive- compulsive disorder, unspecified type F42.9 ; Bipolar I disorder with depression F31.9 and Other fdc (current) drug therapy Z79.899 [place] [facility] [id number] [place] [address] 41115- 5731 Dec, Encounter for IUD removal Z30.432 and control counseling Z30.09 [place] [id number] [place] [address] 74639- 9303 Dec, PTSD (post-traumatic stress disorder) F43.10 ; Obsessive- compulsive disorder, unspecified type F42.9 and Bipolar I disorder with depression F31.9 [facility] [id number] [place] [address] 42199- 9637 Dec, PTSD (post-traumatic stress disorder) F43.10 and Bipolar I disorder with depression F31.9 [facility] [address] [address]- 3707 12 Dec, 2016 PTSD (post-traumatic stress disorder) F43.10 and Bipolar I disorder with depression F31.9 [facility] [id number] [place] [address] 08502- 6224 11 Dec, 2016 Mood disorder F39 [facility] [id number] [place] [address] 702443- 2942 08 Dec, 2016 PTSD (post-traumatic stress disorder) F43.10 ; Mood disorder F39 and Obsessive-compulsive disorder, unspecified type F42.9 [facility] [id number] [place] [address] 50740- 5560 Dec, PTSD (post-traumatic stress disorder) F43.10 and Bipolar I disorder with depression F31.9 [facility] [id number] [place] [address] 64729 -4640 Dec, Adverse drug reaction, initial encounter T88.7XXA [facility] [id number] [place] [address] 07876- 8747 Dec, [facility] [id number] [place] [address] 43472- 0701 Nov, PTSD (post-traumatic stress disorder) F43.10 and Bipolar I disorder with depression F31.9 [facility] [id number] [place] [address] 57402- 8527 Nov, PTSD (post-traumatic stress disorder) F43.10 ; Mood disorder F39 and Obsessive-compulsive disorder, unspecified type F42.9 [facility] [id number] [place] [address] 59791- 5245 Nov, PTSD (post-traumatic stress disorder) F43.10 and Bipolar I disorder with depression F31.9 [facility] [id number] [place] [address] 97837- 9111 Nov, PTSD (post-traumatic stress disorder) F43.10 and Bipolar I disorder with depression F31.9 [facility] [address] [facility] [facility] [id number] [address] Nov, [facility] [address] [facility] [address] [facility] [id number] [address] 2546 Nov, PTSD (post-traumatic stress disorder) F43.10 and Bipolar I disorder with depression F31.9 [facility] [id number] [address]- 3976 Nov, PTSD (post-traumatic stress disorder) F43.10 and Bipolar I disorder with depression F31.9 [facility] [id number] [address]- 9146 Oct, [facility] [id number] [address]- 7876 Oct, PTSD (post-traumatic stress disorder) F43.10 ; Mood disorder F39 and Obsessive-compulsive disorder, unspecified type F42.9 [facility] [id number] [address]- 2751 Oct, PTSD (post-traumatic stress disorder) F43.10 and Bipolar I disorder with depression F31.9 [facility] [id number] [address]- 8579 Oct, PTSD (post-traumatic stress disorder) F43.10 and Bipolar I disorder with depression F31.9 [facility] [id number] [address]- 9837 Oct, PTSD (post-traumatic stress disorder) F43.10 ; Mood disorder F39 and Obsessive-compulsive disorder, unspecified type F42.9 [facility] [id number] [address]- 5078 Oct, [facility] [id number] [address]- 5246 Oct, PTSD (post-traumatic stress disorder) F43.10 and Bipolar I disorder with depression F31.9 [facility] [address], [place] [address]- 4798 Oct, PTSD (post-traumatic stress disorder) F43.10 ; Mood disorder F39 and Obsessive-compulsive disorder, unspecified type F42.9 [facility] [address] [address]- 0150 Sep, PTSD (post-traumatic stress disorder) F43.10 and Bipolar I disorder with depression F31.9 [facility] [id number] [place] [address] 68342- 2875 Sep, PTSD (post-traumatic stress disorder) F43.10 ; Mood disorder F39 and Obsessive-compulsive disorder, unspecified type F42.9 [facility] [id number] [place] [address] 88101- 0260 Sep, PTSD (post-traumatic stress disorder) F43.10 and Bipolar I disorder with depression F31.9 [facility] [id number] [place] [address] 40651- 5414 Sep, PTSD (post-traumatic stress disorder) F43.10 and Bipolar I disorder with depression F31.9 [facility] [address] [address]- 2980 August, PTSD (post-traumatic stress disorder) F43.10 and Bipolar I disorder with depression F31.9 [facility] [id number] [place] [address] 53303 -3197 August, Pharyngitis due to other organism J02.8 [facility] [id number] [place] [address] 84523- 7926 August, PTSD (post-traumatic stress disorder) F43.10 ; Bipolar 1 disorder, mixed F31.60 and Other termination clerk (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) drug therapy Z79.899 [facility] [id number] [place] [address] 26112- 9558 August, PTSD (post-traumatic stress disorder) F43.10 and Bipolar I disorder with depression F31.9 [facility] [id number] [address]- 1276 Jul, PTSD (post-traumatic stress disorder) F43.10 and Bipolar I disorder with depression F31.9 [facility] [address] [address]- 0516 Jul, PTSD (post-traumatic stress disorder) F43.10 and Bipolar I disorder with depression F31.9 [facility] [id number] [address]- 5876 Jul, PTSD (post-traumatic stress disorder) F43.10 and Bipolar I disorder with depression F31.9 [facility] [id number] [address]- 7176 Jul, Other termination clerk (current) drug therapy Z79.899 [facility] [id number] [place] [address] 67799- 9076 Jun, PTSD (post-traumatic stress disorder) F43.10 and Bipolar I disorder with depression F31.9 [facility] [address] [address]- 1936 Jun, Bipolar 1 disorder, mixed F31.60 ; PTSD (post-traumatic stress disorder) F43.10 and Other fdc (current) drug therapy Z79.899 [facility] [address] [address]- 4457 Jun, PTSD (post-traumatic stress disorder) F43.10 and Depression , unspecified depression type F32.9 [facility] [id number] [place] [address] 13486- 5576 Jun, PTSD (post-traumatic stress disorder) F43.10 and Depression , unspecified depression type F32.9 [facility] [id number] [address]- 2716 Jun, PTSD (post-traumatic stress disorder) F43.10 and Depression , unspecified depression type F32.9 [facility] [id number] [place] [address] 42267 -6970 May, Fever, unspecified fever cause R50.9 and Gastroenteritis K52.9 [facility] [id number] [place] [address] 16638- 7486 Mar, Sprain of other ligament of right ankle, subsequent encounter S93.491D [facility] [address] 86020- 4299 Mar, [facility] [id number] [place] [address] 75310 -3868 Feb, Scabies infestation B86 [place] [id number] [place] [address] 35917- 1496 Feb, Dental caries K02.9 [place] [address] 85135- 6161 Jan, [facility] [id number] [place] [address] 13678 -0344 Jan, Pharyngitis, unspecified etiology J02.9 [place] [id number] [place] [address] 46762- 5237 Jan, [place] [id number] [place] [address] 63312- 1734 Jan, Bipolar affective disorder, remission status unspecified F31.9 [place] [id number] [place] [address] 23895- 9945 Jan, Encounter for dental examination and cleaning without abnormal findings Z01.20 [place] [id number] [place] [address] 31233- 6604 Jan, Bipolar affective disorder, remission status unspecified F31.9 [place] [id number] [place] [address] 66438- 4604 Dec, Bipolar affective disorder, remission status unspecified F31.9 and Depression, unspecified depression type F32.9 [facility] [id number] [place] [address] 94313- 2056 12 Dec, 2015 Unspecified mood [affective] disorder F39 and Generalized anxiety disorder F41.1 [facility] [id number] [place] [address] 27586- 4183 08 Dec, 2015 Depression, unspecified depression type F32.9 [facility] [address] 23713- 2588 Nov, Dental caries K02.9 [place] [address] 63913- 6241 Nov, Dental examination Z01.20 [place] [address] 81304- 8049 Sep, Bipolar affective disorder, remission status unspecified F31.9 [place] [address] 86606- 2537 August, Tension headache G44.209 [facility] [address] 71373 -0946 Jul, [facility] [address] 82545 -1157 Jul, Upper respiratory infection J06.9 and Gastroenteritis K52.9 [place] [address] 04678- 2437 Jun, Bronchitis J40 [facility] [address] 37081 -1889 Feb, Thoracic back pain M54.6 and Left shoulder pain M25.512 [place] [address] 13514- 0331 Feb, [facility] [address] 71227- 6119 Jul, [place] [address] [facility] [id number] [place] [address]- 1662 Jul, [facility] [place] [facility] [address] [id number] [place] [address]- 3909 Apr, [facility] [place] [facility] [address] [id number] [place] [address]- 9827 Apr, [facility] [place] [facility] [address] [id number] [place] [address]- 1240 Apr, [facility] [place] [facility] [address] [id number] [place] [address]- 5066 Apr, [facility] [place] [facility] [address] [id number] [place] 1477 Mar, [facility] [place] [facility] [address] [id number] [place] [address]- 1585 Mar, [facility] [place] [facility] [address] [id number] [place] [address]- 3035 Mar, [facility] [place] [facility] [address] [id number] [place] [address]- 1718 Mar, [facility] [place] [facility] [address] [id number] [place] [address]- 1076 Feb, [facility] [place] [facility] [address] [id number] [place] [address]- 8772 Feb, [facility] [place] [facility] [address] [id number] [place] [address]- 2932 Feb, [facility] [place] [facility] [address] [id number] [place] [address]- 9494 Feb, [facility] [place] [facility] [address] [id number] [place] [address]- 0832 Jan, [facility] [place] [facility] [address] [id number] [place] [address]- 0625 Jan, [facility] [place] [facility] [address] [id number] [place] [address]- 9868 Jan, [facility] [place] [facility] [address] [id number] [place] [address]- 0577 14 Jan, 2014 [facility] [place] [facility] [address] [id number] [place] [address]- 7208 Jan, [facility] [place] [facility] [address] [id number] [place] [address]- 6925 Jan, [facility] [place] [facility] [address] [id number] [place] [address]- 1577 Dec, [facility] [place] [facility] [address] [id number] [place] [address]- 7032 Dec, [facility] [place] [facility] [address] [id number] [place] [address]- 3065 Nov, [facility] [place] [facility] [address] [id number] [place] [address]- 8476 Nov, [facility] [place] [facility] [address] [id number] [place] [address]- 3341 Nov, [facility] [place] [facility] [address] [id number] [place] [address]- 2070 Nov, [facility] [place] [facility] [address] [id number] [place] [address]- 4785 Nov, [facility] [place] [facility] [address] [id number] [place] [address]- 2409 Nov, [facility] [place] [facility] [address] [id number] [place] [address]- 1984 Nov, [facility] [place] [facility] [address] [id number] [place] [address]- 2345 Nov, [facility] [place] [facility] [address] [id number] [place] [address]- 3260 Nov, [facility] [place] [facility] [address] [id number] [place] [address]- 8719 Oct, [facility] [place] [facility] [address] [id number] [place] [address]- 4257 Oct, 2013 [facility] [place] [facility] [address] [id number] [place] [address]- 3514 Oct, 2013 [facility] [place] [facility] [address] [id number] [place] [address]- 1615 Oct, 2013 [facility] [place] [facility] [address] [id number] [place] [address]- 9832 Oct, 2013 [facility] [place] [facility] [address] [id number] [place] [address]- 3377 Oct, 2013 [facility] [place] [facility] [address] [id number] [place] [address]- 6193 Oct, 2013 [facility] [place] [facility] [address] [id number] [place] [address]- 1817 Oct, 2013 [facility] [place] [facility] [address] [id number] [place] [address]- 5233 Oct, 2013 [facility] [place] [facility] [address] [id number] [place] [address]- 5250 Oct, 2013 [facility] [place] [facility] [address] [id number] [place] [address]- 4633 Oct, 2013 [facility] [place] [facility] [address] [id number] [place] [address]- 6553 Oct, [facility] [place] [facility] [address] [id number] [place] [address]- 8663 Oct, 2013 [facility] [place] [facility] [address] [id number] [place] [address]- 7287 Oct, 2013 [facility] [place] [facility] [address] [id number] [place] [address]- 5534 Oct, [facility] [place] [facility] [address] [id number] [place] [address]- 0010 Oct, 2013 [facility] [place] [facility] [address] [id number] [place] [address]- 0082 Oct2013 [facility] [place] [facility] [address] [id number] [place] [address]- 0795 Oct, [facility] [place] [facility] [address] [id number] [place] [address]- 2071 Oct, [facility] [place] [facility] [address] [id number] [place] [address]- 2423 Sep, [facility] [place] [facility] [address] [id number] [place] [address]- 2693 Sep, [facility] [place] [facility] [address] [id number] [place] [address]- 4092 Sep, [facility] [place] [facility] [address] [id number] [place] [address]- 5349 Sep, [facility] [place] [facility] [address] [id number] [place] [address] Feb, [facility] [place] [facility] [address] [id number] [place] [address] Feb, [facility] [place] [facility] [address] [id number] [place] [address] Dec, [facility] [place] [facility] [address] [id number] [place] [address] Dec, [facility] [place] [facility] [address] [id number] [place] [address] Nov, [facility] [place] [facility] [address] [id number] [place] [address] Nov, [facility] [place] [facility] [address] [id number] [place] [address] Nov, [facility] [place] [facility] [address] [id number] [place] [address] Nov, [facility] [place] [facility] [address] [id number] [place] [address] Nov, [facility] [place] [facility] [address] [id number] [place] [address] Nov, [facility] [place] [facility] [address] [id number] [place] [address] Oct, [facility] [place] [facility] [address] [id number] [place] [address] Apr, [facility] [place] [facility] [address] [id number] [place] [address] August, [facility] [place] [facility] [address] [id number] [place] [address] August, [facility] [place] [facility] [address] [id number] [place] [address] August, [facility] [place] [facility] [address] [id number] [place] [address] Jul, [facility] [place] [facility] [address] [id number] [place] [address] Jun, [facility] [place] [facility] [address] [id number] [place] [address] Jun, [facility] [place] [facility] [address] [id number] [place] [address] Jun, [facility] [place] [facility] [address] [id number] [place] [address] Jun, [facility] [place] [facility] [address] [id number] [place] [address] Jun, [facility] [place] [facility] [address] [id number] [place] [address] Jun, [facility] [place] [facility] [address] [id number] [place] [address] May, [facility] [place] [facility] [address] [id number] [place] [address] May, [facility] [place] [facility] [address] [id number] [place] [address] May, [facility] [place] [facility] [address] [id number] [place] [address] 07 May, 2011 [facility] [address] [id number] [place] [address] 06 May, 2011 [facility] [place] [facility] [address] [id number] [place] [address] 06 May, 2011 [facility] [place] [facility] [address] [address] [id number] [place] [address] Apr, [facility] [place] [facility] [address] [id number] [place] [address] 07 Mar, 2011 [facility] [place] [facility] [address] [id number] [place] [address] 06 Mar, 2011 [facility] [place] [facility] [address] [id number] [place] [address] Feb, [facility] [place] [facility] [address] [id number] [place] [address] Jan, [facility] [address] [id number] [place] [address] 31 Mar, 2009 [facility] [place] [facility] [address] [id number] [place] [address] 15 Mar, 2009 [facility] [place] [facility] [address] [facility] [facility] [id number] [place] [address] 10 Mar, 2009 [facility] [place] [facility] [address] [id number] [place] [address] 10 Mar, 2009 [facility] [place] [facility] [address] [id number] [place] [address] 02 Mar, 2009 [facility] [place] [facility] [address] [id number] [place] [address] 16 Feb, 2009 [facility] [place] [facility] [address] [id number] [place] [address] 02 Feb, 2009 [facility] [place] [facility] [address] [id number] [place] [address] Nov, [facility] [address] [address] [facility] [id number] [place] [address] May, IMMUNIZATIONS No Known Immunizations SOCIAL HISTORY Never Assessed REASON FOR VISIT f/u Jose Luis PLAN OF CARE Activity Details Follow Up 2 Weeks Reason: f/u VITAL SIGNS Height 64 in 2017-01-06 Weight 292.3 lbs 2017-01-06 Heart Rate 80 bpm 2017-01-06 Respiratory Rate 22 2017-01-06 BMI 50.17 kg/m2 2017-01-06 Blood pressure systolic 158 mmHg 2017-01-06 Blood pressure diastolic 100 mmHg 2017-01-06 MEDICATIONS Medication Instructions Dosage Frequency Start Date End Date Duration Status Latuda 60 mg Orally Once a day at supper with food 1 tablet Active [place] Carbonate 300 MG Orally 2 times a day 1 capsule 12h Dec, Active Celexa 20 mg Orally Once a day 1 tablet 24h Active Mirena 20 MCG/24HR Active HydrOXYzine HCl 50 mg Orally at bedtime a needed for sleep 1 tablet Dec, 30 days Active RESULTS No Results PROCEDURES No Known procedures INSTRUCTIONS MEDICATIONS ADMINISTERED No Known Medications MEDICAL (GENERAL) HISTORY Type Description Date Medical History HELP syndrome Medical History bi-polar Medical History hypertension Medical History hx of seizure x1, isolated Surgical History gallbladder 10/2013 Surgical History 03/2014 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
--- OUTSIDE RECORDS SUMMARY | 2017-12-25 20:27 | XMS REPORT ---
Author Author [facility] Address [address] [place] [address] Care Team Providers Care Investigator Welfare Name Role Phone Mark MADISONYEN Unavailable PROBLEMS Type Condition ICD9-CM Code [id number] Code Onset Dates Condition Status SNOMED Code Problem Mood disorder F39 Active 42097835 Problem Mixed obsessional thoughts and acts F42.2 Active 40323623 Problem PTSD (post-traumatic stress disorder) F43.10 Active 25444729 Problem Obsessive-compulsive disorder, unspecified type F42.9 Active 202144903 Problem Bipolar I disorder with depression F31.9 Active 88109809 ALLERGIES Substance Reaction Event Type Date Status Azithromycin hives Drug Allergy Oct, Active ORAGEL Unknown Non Drug Allergy Oct, Active ENCOUNTERS Encounter Location Date Diagnosis [facility] [id number] [place] [address] 17266- 9249 August, [facility] [id number] [place] [address] 64660- 9209 Jul, [facility] [id number] [place] [address] 37749- 0815 Jul, [facility] [id number] [place] [address] 13058- 6835 Jun, BMI 50.0-59.9, adult Z68.43 ; Bipolar I disorder with depression F31.9 ; PTSD (post-traumatic stress disorder) F43.10 and Mixed obsessional thoughts and acts F42.2 [facility] [id number] [place] [address] 36246 -3006 Jun, Other viral agents as the cause of diseases classified elsewhere B97.89 ; Other specified respiratory disorders J98.8 ; Bronchitis J40 and Cough R05 [facility] [address] [address] 13 Jun, 2017 PTSD (post-traumatic stress disorder) F43.10 [place] [address] [address] 3131 Jun, PTSD (post-traumatic stress disorder) F43.10 and Bipolar I disorder with depression F31.9 [place] [id number] [place] [address] 04563- 5551 13 May, 2017 PTSD (post-traumatic stress disorder) F43.10 and Bipolar I disorder with depression F31.9 [place] [id number] [place] [address] 54355- 1806 12 May, 2017 [place] [id number] [place] [address] 76069- 1080 07 May, 2017 PTSD (post-traumatic stress disorder) F43.10 and Bipolar I disorder with depression F31.9 [place] [id number] [place] [address] 39385- 9310 Apr, PTSD (post-traumatic stress disorder) F43.10 and Bipolar I disorder with depression F31.9 [place] [id number] [place] [address] 78144- 4913 Apr, PTSD (post-traumatic stress disorder) F43.10 and Bipolar I disorder with depression F31.9 [place] [address] [address] 9397 Mar, PTSD (post-traumatic stress disorder) F43.10 ; Obsessive- compulsive disorder, unspecified type F42.9 ; Bipolar I disorder with depression F31.9 and Other fdc (current) drug therapy Z79.899 [place] [id number] [place] [address] 21301- 2188 Mar, PTSD (post-traumatic stress disorder) F43.10 and Bipolar I disorder with depression F31.9 [place] [id number] [place] [address] 26362- 9851 Feb, PTSD (post-traumatic stress disorder) F43.10 and Bipolar I disorder with depression F31.9 [place] [id number] [place] [address] 82767- 1646 Feb, PTSD (post-traumatic stress disorder) F43.10 and Bipolar I disorder with depression F31.9 [facility] [id number] [place] [address] 96338 -0729 Jan, Strep pharyngitis J02.0 [facility] [id number] [place] [address] 44633- 1951 Jan, [place] [address] 97525- 4777 Jan, [place] [id number] [place] [address] 51794- 7956 Jan, PTSD (post-traumatic stress disorder) F43.10 and Bipolar I disorder with depression F31.9 [facility] [id number] [place] [address] 64286- 4056 Jan, PTSD (post-traumatic stress disorder) F43.10 and Bipolar I disorder with depression F31.9 [facility] [id number] [place] [address] 81626- 3084 Jan, Other fdc (current) drug therapy Z79.899 [place] [id number] [place] [address] 97006- 9851 Jan, PTSD (post-traumatic stress disorder) F43.10 ; Obsessive- compulsive disorder, unspecified type F42.9 ; Bipolar I disorder with depression F31.9 and 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 Z79.899 [place] [id number] [place] [address] 04490- 0699 Dec, Encounter for IUD removal Z30.432 and control counseling Z30.09 [place] [id number] [place] [address] 76479- 4908 Dec, PTSD (post-traumatic stress disorder) F43.10 ; Obsessive- compulsive disorder, unspecified type F42.9 and Bipolar I disorder with depression F31.9 [facility] [id number] [place] [address] 48550- 4896 Dec, PTSD (post-traumatic stress disorder) F43.10 and Bipolar I disorder with depression F31.9 [facility] [id number] [place] [address] 56101- 2262 Dec, PTSD (post-traumatic stress disorder) F43.10 and Bipolar I disorder with depression F31.9 [facility] [id number] [place] [address] 16398- 0603 Dec, Mood disorder F39 [facility] [id number] [place] [address] 16448- 2400 Dec, PTSD (post-traumatic stress disorder) F43.10 ; Mood disorder F39 and Obsessive-compulsive disorder, unspecified type F42.9 [facility] [id number] [place] [address] 22276- 6247 Dec, PTSD (post-traumatic stress disorder) F43.10 and Bipolar I disorder with depression F31.9 [facility] [id number] [place] [address] 49716 -5674 Dec, Adverse drug reaction, initial encounter T88.7XXA [facility] [id number] [place] [address] 13048- 1463 Dec, [facility] [id number] [place] [address] 11431- 4470 Nov, PTSD (post-traumatic stress disorder) F43.10 and Bipolar I disorder with depression F31.9 [facility] [id number] [place] [address] 07734- 7814 Nov, PTSD (post-traumatic stress disorder) F43.10 ; Mood disorder F39 and Obsessive-compulsive disorder, unspecified type F42.9 [facility] [address] [address]- 6340 Nov, PTSD (post-traumatic stress disorder) F43.10 and Bipolar I disorder with depression F31.9 [facility] [id number] [address]- 6536 Nov, PTSD (post-traumatic stress disorder) F43.10 and Bipolar I disorder with depression F31.9 [facility] [id number] [address] Nov, [facility] [id number] [place] [address] 32305- 1524 Nov, PTSD (post-traumatic stress disorder) F43.10 and Bipolar I disorder with depression F31.9 [facility] [address] [address]- 4177 Nov, PTSD (post-traumatic stress disorder) F43.10 and Bipolar I disorder with depression F31.9 [facility] [address] [address]- 2154 Oct, [facility] [id number] [place] [address] 55037- 3246 Oct, PTSD (post-traumatic stress disorder) F43.10 ; Mood disorder F39 and Obsessive-compulsive disorder, unspecified type F42.9 [facility] [address] [address]- 8735 Oct, PTSD (post-traumatic stress disorder) F43.10 and Bipolar I disorder with depression F31.9 [facility] [id number] [address]- 7915 Oct, PTSD (post-traumatic stress disorder) F43.10 and Bipolar I disorder with depression F31.9 [facility] [id number] [address]- 2142 Oct, PTSD (post-traumatic stress disorder) F43.10 ; Mood disorder F39 and Obsessive-compulsive disorder, unspecified type F42.9 [facility] [address] [address]- 7941 Oct, [facility] [id number] [place] [address] 59591- 0226 Oct, PTSD (post-traumatic stress disorder) F43.10 and Bipolar I disorder with depression F31.9 [facility] [id number] [place] [address] 68736- 9688 Oct, PTSD (post-traumatic stress disorder) F43.10 ; Mood disorder F39 and Obsessive-compulsive disorder, unspecified type F42.9 [facility] [id number] [place] [address] 32047- 9327 Sep, PTSD (post-traumatic stress disorder) F43.10 and Bipolar I disorder with depression F31.9 [facility] [id number] [place] [address] 44517- 8141 Sep, PTSD (post-traumatic stress disorder) F43.10 ; Mood disorder F39 and Obsessive-compulsive disorder, unspecified type F42.9 [facility] [id number] [place] [address] 46201- 3765 Sep, PTSD (post-traumatic stress disorder) F43.10 and Bipolar I disorder with depression F31.9 [facility] [address] [address]- 8988 Sep, PTSD (post-traumatic stress disorder) F43.10 and Bipolar I disorder with depression F31.9 [facility] [address] [address]- 4396 August, PTSD (post-traumatic stress disorder) F43.10 and Bipolar I disorder with depression F31.9 [facility] [address] [address] August, Pharyngitis due to other organism J02.8 [facility] [id number] [place] [address] 59801- 6871 August, PTSD (post-traumatic stress disorder) F43.10 ; Bipolar 1 disorder, mixed F31.60 and Other fdc (current) drug therapy Z79.899 [facility] [id number] [place] [address] 51183- 1556 August, PTSD (post-traumatic stress disorder) F43.10 and Bipolar I disorder with depression F31.9 [facility] [id number] [place] [address] 02225- 5340 Jul, PTSD (post-traumatic stress disorder) F43.10 and Bipolar I disorder with depression F31.9 [facility] [id number] [place] [address] 75128- 0365 Jul, PTSD (post-traumatic stress disorder) F43.10 and Bipolar I disorder with depression F31.9 [facility] [address] [place] [address] 45801- 4584 Jul, PTSD (post-traumatic stress disorder) F43.10 and Bipolar I disorder with depression F31.9 [facility] [id number] [place] [address] 64698- 4626 Jul, Other fdc (current) drug therapy Z79.899 [facility] [id number] [place] [address] 31428- 7772 Jun, PTSD (post-traumatic stress disorder) F43.10 and Bipolar I disorder with depression F31.9 [facility] [id number] [place] [address] 75683- 2163 Jun, Bipolar 1 disorder, mixed F31.60 ; PTSD (post-traumatic stress disorder) F43.10 and Other fdc (current) drug therapy Z79.899 [facility] [id number] [place] [address] 58365- 0882 Jun, PTSD (post-traumatic stress disorder) F43.10 and Depression , unspecified depression type F32.9 [facility] [id number] [place] [address] 44375- 5320 Jun, PTSD (post-traumatic stress disorder) F43.10 and Depression , unspecified depression type F32.9 [place] [id number] [place] [address] 8066 Jun, PTSD (post-traumatic stress disorder) F43.10 and Depression , unspecified depression type F32.9 [facility] [address] 39103 -5364 May, Fever, unspecified fever cause R50.9 and Gastroenteritis K52.9 [place] [address] 244992- 2284 Mar, Sprain of other ligament of right ankle, subsequent encounter S93.491D [place] [address] 02196- 7513 Mar, [facility] [place] [address] 10130 -8877 Feb, Scabies infestation B86 [place] [address] 00891- 8681 Feb, Dental caries K02.9 [place] [id number] [place] [address] 31898- 5773 Jan, [facility] [place] [id number] [place] [address] 67739 -3854 Jan, Pharyngitis, unspecified etiology J02.9 [place] [id number] [place] [address] 72825- 7829 Jan, [place] [address] 18097- 9347 Jan, Bipolar affective disorder, remission status unspecified F31.9 [place] [address] 41848- 6861 Jan, Encounter for dental examination and cleaning without abnormal findings Z01.20 [place] [id number] [place] [address] 95356- 3627 Jan, Bipolar affective disorder, remission status unspecified F31.9 [place] [id number] [place] [address] 55568- 1945 29 Dec, 2015 Bipolar affective disorder, remission status unspecified F31.9 and Depression, unspecified depression type F32.9 [place] [id number] [place] [address] 01578- 7010 Dec, Unspecified mood [affective] disorder F39 and Generalized anxiety disorder F41.1 [place] [address] 65094- 7688 08 Dec, 2015 Depression, unspecified depression type F32.9 [place] [id number] [place] [address] 61097- 3115 Nov, Dental caries K02.9 [place] [address] 25547- 9785 Nov, Dental examination Z01.20 [place] [id number] [place] [address] 38524- 7393 Sep, Bipolar affective disorder, remission status unspecified F31.9 [place] [id number] [place] [address] 90607- 2606 August, Tension headache G44.209 [facility] [id number] [place] [address] 31882 -8167 Jul, [facility] [id number] [place] [address] 08179 -8221 Jul, Upper respiratory infection J06.9 and Gastroenteritis K52.9 [place] [id number] [place] [address] 17619- 8168 Jun, Bronchitis J40 [facility] [place] [id number] [place] [address] 37685 -9288 05 Feb, 2015 Thoracic back pain M54.6 and Left shoulder pain M25.512 [facility] [address] [id number] [place] [address]- 6442 05 Feb, 2015 [facility] [address] [id number] [place] [address]- 4628 14 Jul, 2014 [facility] [address] [facility] [id number] [place] [address]- 0291 Jul, [facility] [address] [id number] [address]- 9531 Apr, [facility] [address] [id number] [place] [address]- 0712 Apr, [facility] [address] [facility] [id number] [place] [address]- 6141 Apr, [facility] [address] [facility] [id number] [place] [address]- 0351 Apr, [facility] [address] [facility] [id number] [place] [address]- 1010 Mar, [facility] [address] [facility] [id number] [place] [address]- 9476 Mar, [facility] [place] [facility] [id number] [address]- 5664 Mar, [facility] [place] [facility] [id number] [address]- 2687 Mar, [facility] [place] [facility] [address] [id number] [place] [address]- 9360 Feb, [facility] [place] [facility] [address] [facility] [id number] [place] [address]- 8635 Feb, [facility] [place] [facility] [address] [facility] [id number] [place] [address]- 8489 Feb, [facility] [place] [facility] [id number] 9129 Feb, [facility] [place] [facility] [address] [facility] [id number] [place] [address]- 0792 15 Jan, 2014 [facility] [place] [facility] [address] [id number] [place] [address]- 4792 15 Jan, 2014 [facility] [place] [facility] [address] [id number] [place] [address]- 5532 14 Jan, 2014 [facility] [place] [facility] [address] [id number] [place] [address]- 4887 14 Jan, 2014 [facility] [place] [facility] [address] [id number] [place] [address]- 6013 13 Jan, 2014 [facility] [place] [facility] [address] [id number] [place] [address]- 6468 Jan, [facility] [place] [facility] [address] [id number] [place] [address]- 3481 15 Dec, 2013 [facility] [place] [facility] [address] [id number] [place] [address]- 5306 Dec, [facility] [place] [facility] [address] [id number] [place] [address]- 6076 Nov, [facility] [place] [facility] [address] [id number] [place] [address]- 5330 Nov, [facility] [place] [facility] [address] [id number] [place] [address]- 0493 Nov, [facility] [place] [facility] [address] [id number] [place] [address]- 9109 Nov, [facility] [place] [facility] [address] [id number] [place] [address]- 1033 Nov, [facility] [place] [facility] [address] [id number] [place] [address]- 2788 Nov, [facility] [place] [facility] [address] [id number] [place] [address]- 9091 Nov, [facility] [place] [facility] [address] [id number] [place] [address]- 8219 Nov, [facility] [place] [facility] [address] [id number] [place] [address]- 9215 Nov, [facility] [place] [facility] [address] [id number] [place] [address]- 7456 Oct, [facility] [place] [facility] [address] [id number] [place] [address]- 0313 Oct, [facility] [place] [facility] [address] [id number] [place] [address]- 3017 Oct, [facility] [place] [facility] [address] [id number] [place] [address]- 3779 Oct, [facility] [place] [facility] [address] [id number] [place] [address]- 3063 Oct, [facility] [place] [facility] [address] [id number] [place] [address]- 1942 Oct, [facility] [place] [facility] [address] [id number] [place] [address]- 7315 Oct, [facility] [place] [facility] [address] [id number] [place] [address]- 9334 Oct, [facility] [place] [facility] [address] [id number] [place] [address]- 1824 Oct, [facility] [place] [facility] [address] [id number] [place] [address]- 7399 Oct, [facility] [place] [facility] [address] [id number] [place] [address]- 0911 Oct, [facility] [place] [facility] [address] [id number] [place] [address]- 0698 Oct, [facility] [place] [facility] [address] [id number] [place] [address]- 9667 Oct, [facility] [place] [facility] [address] [id number] [place] [address]- 6423 Oct, [facility] [place] [facility] [address] [id number] [place] [address]- 0816 Oct, [facility] [place] [facility] [address] [id number] [place] [address]- 1764 Oct, [facility] [place] [facility] [address] [id number] [place] [address]- 1603 Oct, [facility] [place] [facility] [address] [id number] [place] [address]- 7764 Oct, [facility] [place] [facility] [address] [id number] [place] [address]- 4735 Oct, [facility] [place] [facility] [address] [id number] [place] [address]- 8664 Sep, [facility] [place] [facility] [address] [id number] [place] [address]- 5764 Sep, [facility] [place] [facility] [address] [id number] [place] [address]- 3997 Sep, [facility] [place] [facility] [address] [id number] [place] [address]- 1759 Sep, [facility] [place] [facility] [address] [id number] [place] [address]- 9433 Feb, [facility] [place] [facility] [address] [id number] [place] [address]- 6979 Feb, [facility] [place] [facility] [address] [id number] [place] [address]- 6373 Dec, [facility] [place] [facility] [address] [id number] [place] [address]- 1466 Dec, [facility] [place] [facility] [address] [id number] [place] [address]- 7912 Nov, [facility] [place] [facility] [address] [id number] [place] [address]- 9126 Nov, [facility] [place] [facility] [address] [id number] [place] [address]- 0208 Nov, [facility] [place] [facility] [address] [id number] [place] [address]- 5836 Nov, [facility] [address] [id number] [place] [address]- 0709 Nov, [facility] [address] [id number] [place] [address] 2546 Nov, [facility] [address] [id number] [place] [address] Oct, [facility] [address] [id number] [place] [address] Apr, [facility] [address] [id number] [place] [address] August, [facility] [address] [id number] [place] [address] August, [facility] [address] [id number] [place] [address] August, [facility] [address] [id number] [place] [address] Jul, [facility] [address] [id number] [place] [address] Jun, [facility] [address] [id number] [place] [address] Jun, [facility] [address] [id number] [place] [address] Jun, [facility] [address] [id number] [place] [address] Jun, [facility] [address] [id number] [place] [address] Jun, [facility] [address] [id number] [place] [address] Jun, [facility] [address] [id number] [place] [address] May, [facility] [place] [facility] [address] [id number] [place] [address] 16 May, 2011 [facility] [place] [facility] [address] [id number] [place] [address] 09 May, 2011 [facility] [place] [facility] [address] [facility] [id number] [place] [address] 07 May, 2011 [facility] [place] [facility] [address] [id number] [place] [address] May, [facility] [place] [facility] [address] [id number] [place] [address] May, [facility] [place] [facility] [address] [facility] [id number] [place] [address] Apr, [facility] [place] [facility] [address] [facility] [id number] [place] [address] 07 Mar, 2011 [facility] [place] [facility] [address] [id number] [place] [address] Mar, [facility] [place] [facility] [address] [facility] [id number] [place] [address] Feb, [facility] [place] [facility] [address] [facility] [id number] [place] [address] Jan, [facility] [place] [facility] [address] [facility] [id number] [place] [address] 31 Mar, 2009 [facility] [place] [facility] [address] [id number] [address] 15 Mar, 2009 [facility] [place] [facility] [address] [id number] [place] [address] 10 Mar, 2009 [facility] [place] [facility] [address] [facility] [id number] [place] [address] 10 Mar, 2009 [facility] [place] [facility] [address] [facility] [id number] [place] [address] 02 Mar, 2009 [facility] [place] [facility] [address] [facility] [id number] [place] [address] Feb, [facility] [address] [facility] [id number] [place] [address] Feb, [facility] [address] [facility] [id number] [place] [address] Nov, [facility] [address] [facility] [id number] [place] [address] May, IMMUNIZATIONS No Known Immunizations SOCIAL HISTORY Never Assessed REASON FOR VISIT f/u - [place] PLAN OF CARE Activity Details Follow Up 4 Weeks Reason: f/u VITAL SIGNS Height 64 in 2016-11-11 Weight 285.4 lbs 2016-11-11 Heart Rate 116 bpm 2016-11-11 Respiratory Rate 22 2016-11-11 BMI 48.98 kg/m2 2016-11-11 Blood pressure systolic 150 mmHg 2016-11-11 Blood pressure diastolic 88 mmHg 2016-11-11 MEDICATIONS Medication Instructions Dosage Frequency Start Date End Date Duration Status Latuda 40 mg Orally Once a day in the evening 1 tablet with food Oct, 21 days Active Lamictal 150 MG Orally Once a day 1 tablet 24h Oct, 30 day(s) Active Mirena 20 MCG/24HR Active Celexa 20 mg Orally Once a day 1 tablet 24h 30 day(s) Active Lamictal 100 mg Orally Once a day 1 tablet 24h Oct, 14 days Active RESULTS No Results PROCEDURES No Known procedures INSTRUCTIONS MEDICATIONS ADMINISTERED No Known Medications MEDICAL (GENERAL) HISTORY Type Description Date Medical History HELP syndrome Medical History bi-polar Medical History hypertension Medical History hx of seizure x1, isolated Surgical History gallbladder 10/2013 Surgical History 03/2014 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
--- OUTSIDE RECORDS SUMMARY | 2017-12-25 20:27 | XMS REPORT ---
Author Author CALLY Reyes [facility] Address Unknown Care Team Providers Care Environmental Compliance Engineer Name Role Phone CALLY Reyes Unavailable PROBLEMS Type Condition ICD9-CM Code [id number] Code Onset Dates Condition Status SNOMED Code Problem Mood disorder F39 Active 39827609 Problem Mixed obsessional thoughts and acts F42.2 Active 74048765 Problem PTSD (post-traumatic stress disorder) F43.10 Active 43677417 Problem Obsessive-compulsive disorder, unspecified type F42.9 Active 453872468 Problem Bipolar I disorder with depression F31.9 Active 88359466 ALLERGIES Substance Reaction Event Type Date Status Azithromycin hives Drug Allergy Feb, Active ORAGEL Unknown Non Drug Allergy Feb, Active SOCIAL HISTORY No smoking Hx information available PLAN OF CARE Activity Details Follow Up prn Reason:fillings VITAL SIGNS Height 64 in 2016-02-20 Blood pressure systolic 140 mmHg 2016-02-20 Blood pressure diastolic 85 mmHg 2016-02-20 MEDICATIONS Medication Instructions Dosage Frequency Start Date End Date Duration Status Mirena 20 MCG/24HR Active Celexa 20 mg Orally Once a day 1 tablet 24h August, Active Abilify 5 mg Orally Once a day 1 tablet 24h Jan, 30 day(s) Active RESULTS No Results PROCEDURES Procedure Date Ordered Related Diagnosis Body Site EXTRAC ERUPTED TOOTH/EXPOSED ROOT Feb 20, 2016 IMMUNIZATIONS No Known Immunizations
--- OUTSIDE RECORDS SUMMARY | 2017-12-25 20:27 | XMS REPORT ---
Author Author RAYMON DURBIN Organization [facility] [place] Address [address] [place] [address] Care Team Providers Care Scientific Publications Editor Name Role Phone RAYMON DURBIN Unavailable PROBLEMS Type Condition ICD9-CM Code [id number] Code Onset Dates Condition Status SNOMED Code Problem Depression, unspecified depression type F32.9 Active 19916069 Problem Bipolar affective disorder, remission status unspecified F31.9 Active 79004247 Assessment Bipolar affective disorder, remission status unspecified F31.9 Dec, Active 64728001 ALLERGIES Unknown Allergies SOCIAL HISTORY No smoking Hx information available PLAN OF CARE VITAL SIGNS MEDICATIONS Unknown Medications RESULTS No Results PROCEDURES Procedure Date Ordered Related Diagnosis Body Site Psychotherapy, patient &/family, 30 minutes, established patient Jan 11, 2016 IMMUNIZATIONS No Known Immunizations
--- OUTSIDE RECORDS SUMMARY | 2017-12-25 20:28 | XMS REPORT ---
Author Author LOBO KING Organization [facility] Address [address] [place] [address] Care Team Providers Care Drill Rig Operator Helper Name Role Phone LOBO KING Unavailable PROBLEMS Type Condition ICD9-CM Code [id number] Code Onset Dates Condition Status SNOMED Code Problem Depression, unspecified depression type F32.9 Active 48076676 Problem Bipolar affective disorder, remission status unspecified F31.9 Active 00190551 Assessment Depression, unspecified depression type F32.9 Dec, Active 86333056 ALLERGIES Substance Reaction Event Type Date Status Azithromycin hives Drug Allergy Dec, Active SOCIAL HISTORY No smoking Hx information available PLAN OF CARE VITAL SIGNS Height 64 in 2015-12-21 Weight 258.0 lbs 2015-12-21 Heart Rate 92 bpm 2015-12-21 Respiratory Rate 18 2015-12-21 BMI 44.28 kg/m2 2015-12-21 Blood pressure systolic 120 mmHg 2015-12-21 Blood pressure diastolic 82 mmHg 2015-12-21 MEDICATIONS Medication Instructions Dosage Frequency Start Date End Date Duration Status Celexa 20 mg Orally Once a day 1 tablet 24h August, Active Mirena 20 MCG/24HR Active RESULTS No Results PROCEDURES Procedure Date Ordered Related Diagnosis Body Site Office Visit, Est Pt., Level 2 Dec 21, 2015 IMMUNIZATIONS No Known Immunizations
--- OUTSIDE RECORDS SUMMARY | 2017-12-25 20:28 | XMS REPORT ---
Author Author DWIGHT BLAS Organization [facility] Address [address] [place] [address] Care Team Providers Care Creping Machine Operator Name Role Phone ROOPA DWIGHT Unavailable PROBLEMS Type Condition ICD9-CM Code [id number] Code Onset Dates Condition Status SNOMED Code Problem Mood disorder F39 Active 15448521 Problem Mixed obsessional thoughts and acts F42.2 Active 20987997 Problem PTSD (post-traumatic stress disorder) F43.10 Active 74991148 Problem Obsessive-compulsive disorder, unspecified type F42.9 Active 509628907 Problem Bipolar I disorder with depression F31.9 Active 35969416 ALLERGIES Substance Reaction Event Type Date Status Azithromycin hives Drug Allergy May, Active ORAGEL Unknown Non Drug Allergy May, Active SOCIAL HISTORY Never Assessed PLAN OF CARE Activity Details Follow Up prn Reason: VITAL SIGNS Height 64 in 2016-06-09 Weight 273.2 lbs 2016-06-09 Temperature 97.8 degrees Fahrenheit 2016-06-09 Heart Rate 62 bpm 2016-06-09 Respiratory Rate 20 2016-06-09 BMI 46.89 kg/m2 2016-06-09 Blood pressure systolic 150 mmHg 2016-06-09 Blood pressure diastolic 100 mmHg 2016-06-09 MEDICATIONS Medication Instructions Dosage Frequency Start Date End Date Duration Status Zofran ODT 4 MG Orally every 8 hrs 1 tablet on the tongue and allow to dissolve 8h May, 4 days Active Mirena 20 MCG/24HR Active Celexa 20 mg Orally Once a day 1 tablet 24h August, Active Abilify 5 mg Orally Once a day 1 tablet 24h Jan, 30 day(s) Active RESULTS Name Result Date Reference Range INFLUENZA A & B (IN HOUSE) 2016-06-09 INFLUENZA A negative INFLUENZA B negative Control + Lot # [id number] Exp date 2018-03-21 PROCEDURES Procedure Date Ordered Result Body Site INFLUENZA ASSAY W/OPTIC Jun 09, 2016 IMMUNIZATIONS No Known Immunizations MEDICAL (GENERAL) HISTORY Type Description Date Medical History HELP syndrome Medical History bi-polar Medical History hypertension Medical History hx of seizure x1, isolated Surgical History gallbladder 10/2013 Surgical History 03/2014 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
--- OUTSIDE RECORDS SUMMARY | 2017-12-25 20:28 | XMS REPORT ---
Author Author LOBO KING [facility] [employer] Address Unknown Phone Unavailable Care Team Providers Care Phlebotomy Coordinator Name Role Phone LOBO KING CP Unavailable Allergies No Known Allergies Problems Problem Type Condition Code Onset Dates Condition Status Problem Bipolar affective disorder, remission status unspecified F31.9 Active Assessment Bipolar affective disorder, remission status unspecified F31.9 Active Problem Depression, unspecified depression type F32.9 Active Medications No Known Medications Results No Known Results Summary Purpose eClinicalWorks Submission
--- OUTSIDE RECORDS SUMMARY | 2017-12-25 20:28 | XMS REPORT ---
Author Author LEEANNA JOSEPH [facility] Address [address] [place] [address] Care Team Providers Care Scabbler Name Role Phone LEEANNA JOSEPH Unavailable PROBLEMS Type Condition ICD9-CM Code [id number] Code Onset Dates Condition Status SNOMED Code Problem Mood disorder F39 Active 97380807 Problem Mixed obsessional thoughts and acts F42.2 Active 99919956 Problem PTSD (post-traumatic stress disorder) F43.10 Active 91957837 Problem Obsessive-compulsive disorder, unspecified type F42.9 Active 801640792 Problem Bipolar I disorder with depression F31.9 Active 07626553 ALLERGIES Substance Reaction Event Type Date Status Azithromycin hives Drug Allergy August, Active ORAGEL Unknown Non Drug Allergy August, Active SOCIAL HISTORY Never Assessed PLAN OF CARE VITAL SIGNS Height 64 in 2016-08-21 Weight 279.0 lbs 2016-08-21 Temperature 98.4 degrees Fahrenheit 2016-08-21 Heart Rate 74 bpm 2016-08-21 Respiratory Rate 20 2016-08-21 BMI 47.89 kg/m2 2016-08-21 Blood pressure systolic 146 mmHg 2016-08-21 Blood pressure diastolic 90 mmHg 2016-08-21 MEDICATIONS Medication Instructions Dosage Frequency Start Date End Date Duration Status Citalopram Hydrobromide 10 MG Orally Once a day 1 tablet 24h Jun, Active Prazosin HCl 1 MG Orally Once a day 1 capsule at bedtime 24h August, 30 day(s) Active [place] Carbonate 300 MG Orally AM and PM with meals 1 capsule Jun, Active Mirena 20 MCG/24HR Active Tessalon Perles 100 mg Orally Three times a day 1 capsule as needed 8h August, Active Amoxicillin 500 mg Orally 3 times a day 1 capsule 8h August, August, 10 day(s) Active RESULTS No Results PROCEDURES No Known procedures IMMUNIZATIONS No Known Immunizations MEDICAL (GENERAL) HISTORY Type Description Date Medical History HELP syndrome Medical History bi-polar Medical History hypertension Medical History hx of seizure x1, isolated Surgical History gallbladder 10/2013 Surgical History 03/2014 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
--- OUTSIDE RECORDS SUMMARY | 2017-12-25 20:28 | XMS REPORT ---
Author Author OLY DURBIN Organization [facility] Address [address] [place] [address] Care Team Providers Care Valve Repairer Name Role Phone OLY DURBIN Unavailable PROBLEMS Type Condition ICD9-CM Code QTM65-UF Code Onset Dates Condition Status SNOMED Code Problem Mood disorder F39 Active 68934958 Problem Mixed obsessional thoughts and acts F42.2 Active 24374234 Problem PTSD (post-traumatic stress disorder) F43.10 Active 59615146 Problem Obsessive-compulsive disorder, unspecified type F42.9 Active 679751325 Problem Bipolar I disorder with depression F31.9 Active [id number] ALLERGIES No Information ENCOUNTERS Encounter Location Date Diagnosis [facility] [address] [address] August, [facility] [address] [address] Jul, [facility] [address] [address] Jul, [facility] [address] [address] Jun, BMI 50.0-59.9, adult Z68.43 ; Bipolar I disorder with depression F31.9 ; PTSD (post-traumatic stress disorder) F43.10 and Mixed obsessional thoughts and acts F42.2 [facility] [address] [address] 15 Jun, 2017 Other viral agents as the cause of diseases classified elsewhere B97.89 ; Other specified respiratory disorders J98.8 ; Bronchitis J40 and Cough R05 [facility] [address] [address] 13 Jun, 2017 PTSD (post-traumatic stress disorder) F43.10 [facility] [address] [id number] [address] 13 Jun, 2017 PTSD (post-traumatic stress disorder) F43.10 and Bipolar I disorder with depression F31.9 [facility] [address] [facility] [id number] [address] 13 May, 2017 PTSD (post-traumatic stress disorder) F43.10 and Bipolar I disorder with depression F31.9 [facility] [address] [id number] [address] 12 May, [address] [facility] [id number] [place] [address]- [address] 07 May, 2017 PTSD (post-traumatic stress disorder) F43.10 and Bipolar I disorder with depression F31.9 [facility] [address] [id number] [address] 30 Apr, 2017 PTSD (post-traumatic stress disorder) F43.10 and Bipolar I disorder with depression F31.9 [facility] [address] [id number] [address] Apr, PTSD (post-traumatic stress disorder) F43.10 and Bipolar I disorder with depression F31.9 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 [address] [id number] [address] Mar, PTSD (post-traumatic stress disorder) F43.10 and Bipolar I disorder with depression F31.9 [facility] [address] [id number] [address] Feb, PTSD (post-traumatic stress disorder) F43.10 and Bipolar I disorder with depression F31.9 [facility] [address] [address] 07 Feb, 2017 PTSD (post-traumatic stress disorder) F43.10 and Bipolar I disorder with depression F31.9 [facility] [address] [address] Jan, Strep pharyngitis J02.0 [facility] [id number] [place] [address]078 Jan, [facility] [id number] [place] [address]99- 9468 Jan, [facility] [id number] [place] [address] 13884- 7349 Jan, PTSD (post-traumatic stress disorder) F43.10 and Bipolar I disorder with depression F31.9 [facility] [id number] [place] [address] 23147- 8420 Jan, PTSD (post-traumatic stress disorder) F43.10 and Bipolar I disorder with depression F31.9 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 [id number] [place] [address] 15898- 5215 Jan, PTSD (post-traumatic stress disorder) F43.10 ; Obsessive- compulsive disorder, unspecified type F42.9 ; Bipolar I disorder with depression F31.9 and Other fpc (current) drug therapy Z79.899 [facility] [address] [address] 4[address] Dec, Encounter for IUD removal Z30.432 and control counseling Z30.09 [facility] [address], [place] [address] Dec, PTSD (post-traumatic stress disorder) F43.10 ; Obsessive- compulsive disorder, unspecified type F42.9 and Bipolar I disorder with depression F31.9 [facility] [address] [id number] [address] 8[address] 25 Dec, 2016 PTSD (post-traumatic stress disorder) F43.10 and Bipolar I disorder with depression F31.9 [facility] [id number] [place] [address]10- 2619 12 Dec, 2016 PTSD (post-traumatic stress disorder) F43.10 and Bipolar I disorder with depression F31.9 [facility] [id number] [place] [address] 67906- 6691 11 Dec, [address] [facility] [id number] [place] [address] 43691- 5239 08 Dec, 2016 PTSD (post-traumatic stress disorder) F43.10 ; Mood disorder F39 and Obsessive-compulsive disorder, unspecified type F42.9 [facility] [id number] [place] [address] 01654- 4098 Dec, PTSD (post-traumatic stress disorder) F43.10 and Bipolar I disorder with depression F31.[address] [facility] [id number] [place] [address] 8[address]26 -[address]336 Dec, Adverse drug reaction, initial encounter T88.7XXA [facility] [address], [place] [address] Dec, [facility] [id number] [place] [address] 76735- 7751 Nov, PTSD (post-traumatic stress disorder) F43.10 and Bipolar I disorder with depression F31.9 [facility] [id number] [place] [address] 80889- 3561 Nov, PTSD (post-traumatic stress disorder) F43.10 ; Mood disorder F39 and Obsessive-compulsive disorder, unspecified type F42.9 [facility] [address] [id number] [address]- 2256 Nov, PTSD (post-traumatic stress disorder) F43.10 and Bipolar I disorder with depression F31.9 [facility] [address] [id number] [address]- 3396 Nov, PTSD (post-traumatic stress disorder) F43.10 and Bipolar I disorder with depression F31.9 [facility] [address] [id number], [place] [address] Nov, [facility] [id number] [place] [address] 38003- 7780 Nov, PTSD (post-traumatic stress disorder) F43.10 and Bipolar I disorder with depression F31.9 [facility] [id number] [place] [address] 40012- 6075 Nov, PTSD (post-traumatic stress disorder) F43.10 and Bipolar I disorder with depression F31.9 [facility] [id number] [place] [address] 96973- 8447 Oct, [facility] [id number] [place] [address] 78675- 4988 Oct, PTSD (post-traumatic stress disorder) F43.10 ; Mood disorder F39 and Obsessive-compulsive disorder, unspecified type F42.9 [facility] [address] [address]- 4049 Oct, PTSD (post-traumatic stress disorder) F43.10 and Bipolar I disorder with depression F31.9 [facility] [id number], [place] [address]- 1381 Oct, PTSD (post-traumatic stress disorder) F43.10 and Bipolar I disorder with depression F31.9 [facility] [address] [id number] [address]- 0849 Oct, PTSD (post-traumatic stress disorder) F43.10 ; Mood disorder F39 and Obsessive-compulsive disorder, unspecified type F42.9 [facility] [id number] [address]- 6664 Oct, [facility] [address], [place] [address]- 5062 Oct, PTSD (post-traumatic stress disorder) F43.10 and Bipolar I disorder with depression F31.9 [facility] [address] [address]- 4418 Oct, PTSD (post-traumatic stress disorder) F43.10 ; Mood disorder F39 and Obsessive-compulsive disorder, unspecified type F42.9 [address] [address] [address]- 5518 Sep, PTSD (post-traumatic stress disorder) F43.10 and Bipolar I disorder with depression F31.9 [facility] [address] [place] [address] 94278- 7413 Sep, PTSD (post-traumatic stress disorder) F43.10 ; Mood disorder F39 and Obsessive-compulsive disorder, unspecified type F42.9 [address] [address], [place] [address]- 8263 Sep, PTSD (post-traumatic stress disorder) F43.10 and Bipolar I disorder with depression F31.9 [place] [id number] [place] [address] 61818- 9890 Sep, PTSD (post-traumatic stress disorder) F43.10 and Bipolar I disorder with depression F31.9 [place] [address], [place] [address]- 3542 August, PTSD (post-traumatic stress disorder) F43.10 and Bipolar I disorder with depression F31.9 [facility] [id number] [place] [address]64 August, Pharyngitis due to other organism J02.8 [facility] [address] [place] [address] 16240- 5806 August, PTSD (post-traumatic stress disorder) F43.10 ; Bipolar 1 disorder, mixed F31.60 and Other fpc (current) drug therapy Z79.899 [facility] [id number] [address] 2546 August, PTSD (post-traumatic stress disorder) F43.10 and Bipolar I disorder with depression F31.9 [facility] [id number], [place] [address] 2546 Jul, PTSD (post-traumatic stress disorder) F43.10 and Bipolar I disorder with depression F31.9 [facility] [id number], [place] [address] 2546 Jul, PTSD (post-traumatic stress disorder) F43.10 and Bipolar I disorder with depression F31.9 [facility] [id number], [place] [address] 2546 Jul, PTSD (post-traumatic stress disorder) F43.10 and Bipolar I disorder with depression F31.9 [facility] [id number], [place] [address]- 6096 Jul, Other fpc (current) drug therapy Z79.899 [facility] [id number], [place] [address] 2546 Jun, PTSD (post-traumatic stress disorder) F43.10 and Bipolar I disorder with depression F31.9 [facility] [id number], [place] [address] 2546 Jun, Bipolar 1 disorder, mixed F31.60 ; PTSD (post-traumatic stress disorder) F43.10 and Other fpc (current) drug therapy Z79.899 [facility] [id number], [place] [address] 2546 Jun, PTSD (post-traumatic stress disorder) F43.10 and Depression , unspecified depression type F32.9 [facility] [id number], [place] [address] 2546 14 Jun, 2016 PTSD (post-traumatic stress disorder) F43.10 and Depression , unspecified depression type F32.9 [place] [id number] [place] [address] 68024- 2932 Jun, PTSD (post-traumatic stress disorder) F43.10 and Depression , unspecified depression type F32.9 [facility] [id number] [place] [address] 45993 -7527 May, Fever, unspecified fever cause R50.9 and Gastroenteritis K52.9 [place] [address] 22[address]- 8916 Mar, Sprain of other ligament of right ankle, subsequent encounter S93.491D [place] [address] [address]9828- 4937 Mar, [facility] [place] [address] 31718 -2816 Feb, Scabies infestation B86 [place] [address] 23123- 7470 Feb, Dental caries K02.9 [place] [address] 42716- 1090 Jan, [facility] [place] [address] 16536 -0094 Jan, Pharyngitis, unspecified etiology J02.9 [place] [address] 45261- 9224 Jan, [place] [address] 85385- 6177 Jan, Bipolar affective disorder, remission status unspecified F31.9 [place] [address] 61318- 7820 Jan, Encounter for dental examination and cleaning without abnormal findings Z01.20 [place] [address] 66587- 9635 Jan, Bipolar affective disorder, remission status unspecified F31.9 [facility] [id number] [place] [address] 88027- 0762 29 Dec, 2015 Bipolar affective disorder, remission status unspecified F31.9 and Depression, unspecified depression type F32.9 [place] [id number] [place] [address] 22322- 5665 12 Dec, 2015 Unspecified mood [affective] disorder F39 and Generalized anxiety disorder F41.1 [place] [id number] [place] [address] 12748- 2313 08 Dec, 2015 Depression, unspecified depression type F32.9 [place] [address] 48997- 8064 Nov, Dental caries K02.9 [place] [address] 45710- 7584 Nov, Dental examination Z01.20 [place] [address] 50469- 4485 Sep, Bipolar affective disorder, remission status unspecified F31.9 [place] [address] 78148- 9915 August, Tension headache G44.209 [facility] [id number] [place] [address] 38900 -2355 Jul, [facility] [id number] [place] [address] 36619 -4893 Jul, Upper respiratory infection J06.9 and Gastroenteritis K52.9 [place] [id number] [place] [address] 93114- 7397 Jun, Bronchitis J40 [facility] [address] 51582 -1397 05 Feb, 2015 Thoracic back pain M54.6 and Left shoulder pain M25.512 [place] [address] 09056- 2434 Feb, [facility] [place] [facility] [address] [id number] [place] [address]- 8153 14 Jul, 2014 [facility] [place] [facility] [address] [id number] [place] [address]- 4861 Jul, [facility] [place] [facility] [address] [id number] [place] [address]- 8840 Apr, [facility] [place] [facility] [address] [id number] [place] [address]- 4027 Apr, [facility] [place] [facility] [address] [id number] [place] [address]- 0077 Apr, [facility] [place] [facility] [address] [id number] [place] [address]- 0185 Apr, [facility] [place] [facility] [address] [id number] [place] [address]- 8422 Mar, [facility] [place] [facility] [address] [id number], [place] [address]- 9945 Mar, [facility] [place] [facility] [address] [id number] [place] [address]- 3655 Mar, [facility] [place] [facility] [address] [id number] [place] [address]- 2053 Mar, [facility] [place] [facility] [address] [id number], [place] [address]- 7503 Feb, [facility] [place] [facility] [address] [id number], [place] [address]- 8728 Feb, [facility] [place] [facility] [address] [id number] [place] [address]- 5444 Feb, [facility] [place] [facility] [address] [id number], [place] [address]- 8349 Feb, [facility] [place] [facility] [address] [id number] [place] [address]- 2725 Jan, [facility] [place] [facility] [address] [id number] [place] [address]- 8923 15 Jan, 2014 [facility] [place] [facility] [address] [id number] [place] [address]- 0557 14 Jan, 2014 [facility] [place] [facility] [address] [id number] [place] [address]- 0808 14 Jan, 2014 [facility] [place] [facility] [address] [id number] [place] [address]- 9412 13 Jan, 2014 [facility] [place] [facility] [address] [id number] [place] [address]- 1240 Jan, [facility] [place] [facility] [address] [id number] [place] [address]- 3387 15 Dec, 2013 [facility] [place] [facility] [address] [id number] [place] [address]- 6303 Dec, [facility] [place] [facility] [address] [id number] [place] [address]- 4222 Nov, [facility] [place] [facility] [address] [id number] [place] [address]- 7210 Nov, [facility] [place] [facility] [address] [id number] [place] [address]- 9598 Nov, [facility] [place] [facility] [address] [id number] [place] [address]- 4627 Nov, [facility] [place] [facility] [address] [id number] [place] [address]- 7467 Nov, [facility] [place] [facility] [address] [id number] [place] [address]- 5744 Nov, [facility] [place] [facility] [address] [id number] [place] [address]- 5446 Nov, [facility] [place] [facility] [address] [id number] [place] [address]- 8332 Nov, [facility] [place] [facility] [address] [id number] [place] [address]- 3669 Nov, [facility] [place] [facility] [address] [id number] [place] [address]- 4169 Oct, [facility] [place] [facility] [address] [id number] [place] [address]- 4545 Oct, [facility] [place] [facility] [address] [id number] [place] [address]- 0624 Oct, [facility] [place] [facility] [address] [id number] [place] [address]- 1177 Oct, [facility] [place] [facility] [address] [id number] [place] [address]- 3096 Oct, [facility] [place] [facility] [address] [id number] [place] [address]- 8347 Oct, [facility] [place] [facility] [address] [id number] [place] [address]- 1598 Oct, [facility] [place] [facility] [address] [id number] [place] [address]- 3450 Oct, [facility] [place] [facility] [address] [id number] [place] [address]- 1890 Oct, [facility] [place] [facility] [address] [id number] [place] [address]- 2541 Oct, [facility] [place] [facility] [address] [id number] [place] [address]- 3918 Oct, [facility] [place] [facility] [address] [id number] [place] [address]- 0148 Oct, [facility] [place] [facility] [address] [id number] [place] [address]- 5343 Oct, [facility] [place] [facility] [address] [id number] [place] [address]- 2491 Oct, [facility] [place] [facility] [address] [id number] [place] [address]- 2170 Oct, [facility] [place] [facility] [address] [id number] [place] [address]- 9997 Oct, [facility] [place] [facility] [address] [id number] [place] [address]- 4237 Oct, [facility] [place] [facility] [address] [id number] [place] [address]952 Oct, [facility] [place] [facility] [address] [id number] [place] [address]- 7545 Oct, [facility] [place] [facility] [address] [id number] [place] [address]- 4603 Sep, [facility] [place] [facility] [address] [id number] [place] [address]- 9541 Sep, [facility] [place] [facility] [address] [id number] [place] [address]- 3907 Sep, [facility] [place] [facility] [address] [id number] [place] [address]- 3181 Sep, [facility] [place] [facility] [address] [id number] [place] [address]- 0198 Feb, [facility] [place] [facility] [address] [id number] [place] [address]- 3290 Feb, [facility] [place] [facility] [address] [id number] [place] [address]- 3547 Dec, [facility] [place] [facility] [address] [id number] [place] [address]- 5346 Dec, [facility] [place] [facility] [address] [id number] [place] [address]- 1829 Nov, [facility] [place] [facility] [address] [id number] [place] [address]- 6825 Nov, [facility] [place] [facility] [address] [id number] [place] [address]- 5662 Nov, [facility] [place] [facility] [address] [id number] [place] [address] Nov, [facility] [place] [facility] [address] [id number] [place] [address] Nov, [facility] [address] [id number] [place] [address] Nov, [facility] [place] [facility] [address] [id number] [place] [address] Oct, [facility] [address] [id number] [place] [address] Apr, [facility] [address] [id number] [place] [address] August, [facility] [address] [id number] [place] [address] August, [facility] [address] [id number] [place] [address] August, [facility] [address] [id number] [place] [address] Jul, [facility] [address] [id number] [place] [address] Jun, [facility] [address] [id number] [place] [address] Jun, [facility] [address] [id number] [place] [address] Jun, [facility] [place] [facility] [address] [id number] [place] [address] Jun, [facility] [place] [facility] [address] [id number] [place] [address] Jun, [facility] [place] [facility] [address] [id number] [place] [address] Jun, [facility] [place] [facility] [address] [id number] [place] [address] May, [facility] [place] [facility] [address] [id number] [place] [address] 16 May, 2011 [facility] [place] [facility] [address] [id number] [place] [address] 09 May, 2011 [facility] [place] [facility] [address] [id number] [place] [address] 07 May, 2011 [facility] [place] [facility] [address] [id number] [place] [address] May, [facility] [place] [facility] [address] [id number] [place] [address] May, [facility] [place] [facility] [address] [id number] [place] [address] Apr, [facility] [place] [facility] [address] [id number] [place] [address] Mar, [facility] [place] [facility] [address] [facility] [id number] [place] [address] Mar, [facility] [place] [facility] [address] [id number] [place] [address] Feb, [facility] [place] [facility] [address] [id number] [place] [address] Jan, [facility] [place] [facility] [address] [id number] [place] [address] 31 Mar, 2009 [facility] [place] [facility] [address] [id number], [place] [address] 15 Mar, 2009 [facility] [place] [facility] [address] [id number], [place] [address] 10 Mar, 2009 [facility] [place] [facility] [address] [id number] [place] [address] 10 Mar, 2009 [facility] [place] [facility] [address] [facility] [id number] [address] 02 Mar, 2009 [facility] [place] [facility] [address] [facility] [facility] [id number] [place] [address] 16 Feb, 2009 [facility] [place] [facility] [address] [facility] [id number] [place] [address] Feb[address] [facility] [address] [facility] [id number] [address] Nov, [facility] [address] [facility] [id number] [place] [address] May, IMMUNIZATIONS No Known Immunizations SOCIAL HISTORY Never Assessed REASON FOR VISIT Follow-up PTSD PLAN OF CARE Activity Details Follow Up 1 Week Reason: Follow-up VITAL SIGNS MEDICATIONS Unknown Medications RESULTS No Results PROCEDURES Procedure Date Ordered Result Body Site Psychotherapy, patient &/family, 45 minutes, established patient October 24, 2016 INSTRUCTIONS MEDICATIONS ADMINISTERED No Known Medications MEDICAL (GENERAL) HISTORY Type Description Date Medical History HELP syndrome Medical History bi-polar Medical History hypertension Medical History hx of seizure x1, isolated Surgical History gallbladder 10/2013 Surgical History 03/2014 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
--- OUTSIDE RECORDS SUMMARY | 2017-12-25 20:29 | XMS REPORT ---
Author Author S[facility] Address [address] [place] [address] Care Team Providers Care Advertising Strategist Name Role Phone [facility] [place] Unavailable PROBLEMS Type Condition ICD9-CM Code ERF26-PP Code Onset Dates Condition Status SNOMED Code Problem Amenorrhea N91.2 Active 72537386 Problem Mood disorder F39 Active 19522598 Problem PTSD (post-traumatic stress disorder) F43.10 Active 03932356 Problem Bipolar I disorder with depression F31.9 Active 47700564 Problem Mixed obsessional thoughts and acts F42.2 Active 19746322 Problem Obsessive-compulsive disorder, unspecified type F42.9 Active [id number] ALLERGIES No Information ENCOUNTERS Encounter Location Date Diagnosis [facility] [id number] [place] [address] 12838- 9769 Sep, [facility] [address] 45373- 8385 Sep, [facility] [id number] [place] [address] 66125- 5087 August, [facility] [id number] [place] [address] 32664- 4666 August, [facility] [address] 82485- 3664 Jul, [facility] [address] 89601- 0430 Jul, PTSD (post-traumatic stress disorder) F43.10 and Bipolar I disorder with depression F31.9 [facility] [id number] [place] [address] 50572- 9652 Jul, Pelvic pain R10.2 ; Amenorrhea N91.2 and BMI 50.0-59.9, adult Z68.43 [facility] [id number] [place] [address] 77786- 5453 26 Jun, 2017 BMI 50.0-59.9, adult Z68.43 ; Bipolar I disorder with depression F31.9 ; PTSD (post-traumatic stress disorder) F43.10 and Mixed obsessional thoughts and acts F42.2 [facility] [id number] [place] [address] 17197 -8588 15 Jun, 2017 Other viral agents as the cause of diseases classified elsewhere B97.89 ; Other specified respiratory disorders J98.8 ; Bronchitis J40 and Cough R05 [facility] [id number] [place] [address] 96676- 5411 Jun, PTSD (post-traumatic stress disorder) F43.10 [facility] [id number] [place] [address] 40465- 4975 Jun, PTSD (post-traumatic stress disorder) F43.10 and Bipolar I disorder with depression F31.9 [facility] [id number] [place] [address] 88314- 9094 13 May, 2017 PTSD (post-traumatic stress disorder) F43.10 and Bipolar I disorder with depression F31.9 [facility] [id number] [place] [address] 50191- 6637 12 May, 2017 [facility] [id number] [place] [address] 94067- 4850 07 May, 2017 PTSD (post-traumatic stress disorder) F43.10 and Bipolar I disorder with depression F31.9 [facility] [id number] [place] [address] 88478- 5125 Apr, PTSD (post-traumatic stress disorder) F43.10 and Bipolar I disorder with depression F31.9 [facility] [id number] [place] [address] 20178- 3014 Apr, PTSD (post-traumatic stress disorder) F43.10 and Bipolar I disorder with depression F31.9 [facility] [address] [address]- 1266 Mar, PTSD (post-traumatic stress disorder) F43.10 ; Obsessive- compulsive disorder, unspecified type F42.9 ; Bipolar I disorder with depression F31.9 and 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 [facility] [id number] [place] [address] 89133- 0126 Mar, PTSD (post-traumatic stress disorder) F43.10 and Bipolar I disorder with depression F31.9 [facility] [id number] [place] [address] 51296- 6496 Feb, PTSD (post-traumatic stress disorder) F43.10 and Bipolar I disorder with depression F31.9 [facility] [address] [address]- 5196 Feb, PTSD (post-traumatic stress disorder) F43.10 and Bipolar I disorder with depression F31.9 [facility] [address] [address] Jan, Strep pharyngitis J02.0 [facility] [id number] [place] [address] 97029- 0126 Jan, [facility] [address] [address]- 4256 Jan, [facility] [id number] [place] [address] 26992- 2546 Jan, PTSD (post-traumatic stress disorder) F43.10 and Bipolar I disorder with depression F31.9 [facility] [id number] [place] [address] 35718- 3166 Jan, PTSD (post-traumatic stress disorder) F43.10 and Bipolar I disorder with depression F31.9 [facility] [id number] [address]- 9466 Jan, 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 [facility] [id number] [place] [address] 13822- 5774 02 Jan, 2017 PTSD (post-traumatic stress disorder) F43.10 ; Obsessive- compulsive disorder, unspecified type F42.9 ; Bipolar I disorder with depression F31.9 and 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 [facility] [id number] [place] [address] 21191- 2512 27 Dec, 2016 Encounter for IUD removal Z30.432 and control counseling Z30.09 [facility] [id number] [place] [address] 98896- 8077 Dec, PTSD (post-traumatic stress disorder) F43.10 ; Obsessive- compulsive disorder, unspecified type F42.9 and Bipolar I disorder with depression F31.9 [facility] [id number] [place] [address] 89311- 6194 Dec, PTSD (post-traumatic stress disorder) F43.10 and Bipolar I disorder with depression F31.9 [facility] [id number] [place] [address] 61132- 7729 12 Dec, 2016 PTSD (post-traumatic stress disorder) F43.10 and Bipolar I disorder with depression F31.9 [facility] [id number] [place] [address] 30758- 1478 11 Dec, 2016 Mood disorder F39 [facility] [id number] [place] [address] 52437- 9536 08 Dec, 2016 PTSD (post-traumatic stress disorder) F43.10 ; Mood disorder F39 and Obsessive-compulsive disorder, unspecified type F42.9 [facility] [id number] [place] [address] 74626- 9562 07 Dec, 2016 PTSD (post-traumatic stress disorder) F43.10 and Bipolar I disorder with depression F31.9 [facility] [id number] [place] [address] 44978 -0451 05 Dec, 2016 Adverse drug reaction, initial encounter T88.7XXA [facility] [address] [address]- 2685 Dec, [facility] [id number] [place] [address] 49181- 5539 Nov, PTSD (post-traumatic stress disorder) F43.10 and Bipolar I disorder with depression F31.9 [facility] [id number] [place] [address] 38220- 0945 Nov, PTSD (post-traumatic stress disorder) F43.10 ; Mood disorder F39 and Obsessive-compulsive disorder, unspecified type F42.9 [facility] [id number] [place] [address] 82255- 4863 Nov, PTSD (post-traumatic stress disorder) F43.10 and Bipolar I disorder with depression F31.9 [facility] [id number] [place] [address] 24034- 4108 Nov, PTSD (post-traumatic stress disorder) F43.10 and Bipolar I disorder with depression F31.9 [facility] [id number] [place] [address] 37296 -0373 Nov, [facility] [id number] [place] [address] 32694- 7772 Nov, PTSD (post-traumatic stress disorder) F43.10 and Bipolar I disorder with depression F31.9 [facility] [id number] [place] [address] 87558- 9513 Nov, PTSD (post-traumatic stress disorder) F43.10 and Bipolar I disorder with depression F31.9 [facility] [id number] [place] [address] 84362- 4311 Oct, [facility] [id number] [place] [address] 54076- 9426 Oct, PTSD (post-traumatic stress disorder) F43.10 ; Mood disorder F39 and Obsessive-compulsive disorder, unspecified type F42.9 [facility] [address] [facility] [id number] [address] 2546 Oct, PTSD (post-traumatic stress disorder) F43.10 and Bipolar I disorder with depression F31.9 [facility] [address] [facility] [id number] [address] 2546 Oct, PTSD (post-traumatic stress disorder) F43.10 and Bipolar I disorder with depression F31.9 [facility] [id number] [address]- 8666 Oct, PTSD (post-traumatic stress disorder) F43.10 ; Mood disorder F39 and Obsessive-compulsive disorder, unspecified type F42.9 [facility] [id number] [address]- 9866 Oct, [facility] [id number] [address]- 4906 Oct, PTSD (post-traumatic stress disorder) F43.10 and Bipolar I disorder with depression F31.9 [facility] [id number] [address]- 6746 Oct, PTSD (post-traumatic stress disorder) F43.10 ; Mood disorder F39 and Obsessive-compulsive disorder, unspecified type F42.9 [facility] [id number] [address]- 2339 Sep, PTSD (post-traumatic stress disorder) F43.10 and Bipolar I disorder with depression F31.9 [facility] [address] [facility] [id number] [address] 2546 Sep, PTSD (post-traumatic stress disorder) F43.10 ; Mood disorder F39 and Obsessive-compulsive disorder, unspecified type F42.9 [facility] [id number] [address] 0208 Sep, PTSD (post-traumatic stress disorder) F43.10 and Bipolar I disorder with depression F31.9 [facility] [address] [address]- 6285 Sep, PTSD (post-traumatic stress disorder) F43.10 and Bipolar I disorder with depression F31.9 [facility] [id number] [place] [address] 00104- 8149 August, PTSD (post-traumatic stress disorder) F43.10 and Bipolar I disorder with depression F31.9 [facility] [id number] [place] [address] 40867 -3794 August, Pharyngitis due to other organism J02.8 [facility] [id number] [place] [address] 98574- 9436 August, PTSD (post-traumatic stress disorder) F43.10 ; Bipolar 1 disorder, mixed F31.60 and Other alf (current) drug therapy Z79.899 [place] [id number] [place] [address] 24155- 4658 August, PTSD (post-traumatic stress disorder) F43.10 and Bipolar I disorder with depression F31.9 [facility] [id number] [place] [address] 98007- 4695 Jul, PTSD (post-traumatic stress disorder) F43.10 and Bipolar I disorder with depression F31.9 [facility] [address] [address]- 5281 Jul, PTSD (post-traumatic stress disorder) F43.10 and Bipolar I disorder with depression F31.9 [facility] [address] [place] [address] 72703- 5846 Jul, PTSD (post-traumatic stress disorder) F43.10 and Bipolar I disorder with depression F31.9 [facility] [id number] [place] [address] 43503- 8521 Jul, Other alf (current) drug therapy Z79.899 [facility] [id number] [place] [address] 90072- 5684 Jun, PTSD (post-traumatic stress disorder) F43.10 and Bipolar I disorder with depression F31.9 [place] [address] 78481- 3949 Jun, Bipolar 1 disorder, mixed F31.60 ; PTSD (post-traumatic stress disorder) F43.10 and Other alf (current) drug therapy Z79.899 [place] [address] 40321- 3019 Jun, PTSD (post-traumatic stress disorder) F43.10 and Depression , unspecified depression type F32.9 [place] [address] 66067- 5902 Jun, PTSD (post-traumatic stress disorder) F43.10 and Depression , unspecified depression type F32.9 [place] [address] 42547- 4878 Jun, PTSD (post-traumatic stress disorder) F43.10 and Depression , unspecified depression type F32.9 [facility] [address] 56874 -2687 May, Fever, unspecified fever cause R50.9 and Gastroenteritis K52.9 [place] [address] 87602- 0413 Mar, Sprain of other ligament of right ankle, subsequent encounter S93.491D [place] [address] 89265- 6239 Mar, [facility] [address] 93064 -8888 Feb, Scabies infestation B86 [place] [address] 58797- 5654 08 Feb, 2016 Dental caries K02.9 [place] [address] 28277- 1618 Jan, [facility] [address], [place] [address] -1437 Jan, Pharyngitis, unspecified etiology J02.9 [facility] [id number] [place] [address] 63492- 5840 Jan, [facility] [id number] [place] [address] 64904- 4710 Jan, Bipolar affective disorder, remission status unspecified F31.9 [facility] [id number] [place] [address] 52126- 2324 Jan, Encounter for dental examination and cleaning without abnormal findings Z01.20 [facility] [id number] [place] [address] 71773- 2569 Jan, Bipolar affective disorder, remission status unspecified F31.9 [place] [id number] [place] [address] 91019- 9278 Dec, Bipolar affective disorder, remission status unspecified F31.9 and Depression, unspecified depression type F32.9 [facility] [id number] [place] [address] 42312- 5805 Dec, Unspecified mood [affective] disorder F39 and Generalized anxiety disorder F41.1 [facility] [address] [place] [address] 43297- 6298 08 Dec, 2015 Depression, unspecified depression type F32.9 [place] [address] [place] [address] 13520- 6827 Nov, Dental caries K02.9 [facility] [id number] [place] [address] 91460- 4460 Nov, Dental examination Z01.20 [facility] [id number] [place] [address] 93798- 1049 Sep, Bipolar affective disorder, remission status unspecified F31.9 [facility] [id number] [place] [address] 68755- 5507 August, Tension headache G44.209 [facility] [id number] [place] [address] 84919 -9452 Jul, [facility] [id number] [place] [address] 17122 -6780 Jul, Upper respiratory infection J06.9 and Gastroenteritis K52.9 [facility] [id number] [place] [address] 36397- 7367 Jun, Bronchitis J40 [facility] [id number] [place] [address] 25214 -5604 Feb, Thoracic back pain M54.6 and Left shoulder pain M25.512 [facility] [id number] [place] [address] 21602- 4728 Feb, [facility] [id number] [place] [address] 18223- 2718 Jul, [facility] [id number] [place] [address] 81424- 8128 Jul, [facility] [id number] [place] [address] 49715- 0132 Apr, [facility] [id number] [place] [address] 64589- 8102 Apr, [facility] [id number] [place] [address] 51026- 1772 Apr, [facility] [id number] [place] [address] 07361- 8217 Apr, [facility] [id number] [place] [address] 57559- 6987 Mar, [facility] [id number] [place] [address] 07931- 5280 Mar, [facility] [id number] [place] [address] 56397- 8854 Mar, [facility] [address] [place] [address]- 2475 Mar, [facility] [place] [facility] [address] [id number] [place] [address]- 4869 Feb, [facility] [place] [facility] [address] [id number] [place] [address]257 Feb, [facility] [place] [facility] [address] [id number] [place] [address]- 3392 Feb, [facility] [place] [facility] [address] [id number] [place] [address]- 8882 Feb, [facility] [place] [facility] [address] [id number] [place] [address]- 8402 Jan, [facility] [place] [facility] [address] [id number] [place] [address]- 6389 Jan, [facility] [place] [facility] [address] [id number] [place] [address]- 4500 Jan, [facility] [place] [facility] [address] [id number] [place] [address]- 3972 14 Jan, 2014 [facility] [place] [facility] [address] [id number] [place] [address]- 7419 Jan, [facility] [place] [facility] [address] [id number] [place] [address]- 1938 Jan, [facility] [place] [facility] [address] [id number] [place] [address]- 9590 Dec, [facility] [place] [facility] [address] [id number] [place] [address]- 8717 Dec, [facility] [place] [facility] [address] [id number] [place] 8752 Nov, [facility] [place] [facility] [address] [id number] [place] [address]- 0503 Nov, [facility] [place] [facility] [address] [id number] [place] [address]- 0150 Nov, [facility] [place] [facility] [address] [id number] [place] [address]- 9103 Nov, [facility] [place] [facility] [address] [id number] [place] [address]- 9833 Nov, [facility] [place] [facility] [address] [id number] [place] [address]- 0495 Nov, [facility] [place] [facility] [address] [id number] [place] [address]- 4569 Nov, [facility] [place] [facility] [address] [id number] [place] [address]- 1741 Nov, [facility] [place] [facility] [address] [id number] [place] [address]- 6248 Nov, [facility] [place] [facility] [address] [id number] [place] [address]- 7713 Oct, [facility] [place] [facility] [address] [id number] [place] [address]- 8358 Oct, [facility] [place] [facility] [address] [id number] [place] [address]- 1195 Oct, [facility] [place] [facility] [address] [id number] [place] [address]- 6625 Oct, [facility] [place] [facility] [address] [id number] [place] [address]- 0443 Oct, [facility] [place] [facility] [address] [id number] [place] [address]- 3554 Oct, [facility] [place] [facility] [address] [id number] [place] [address]- 2952 Oct, [facility] [place] [facility] [address] [id number] [place] [address]- 7412 Oct, [facility] [place] [facility] [address] [id number] [place] [address]- 2830 Oct, [facility] [place] [facility] [address] [id number] [place] [address]- 9792 Oct, 2013 [facility] [place] [facility] [address] [id number] [place] [address]- 7333 Oct, 2013 [facility] [place] [facility] [address] [id number] [place] [address]- 8503 Oct, 2013 [facility] [place] [facility] [address] [id number] [place] [address]- 2880 Oct, 2013 [facility] [place] [facility] [address] [id number] [place] [address]- 0012 Oct, 2013 [facility] [place] [facility] [address] [id number] [place] [address]- 3791 Oct, [facility] [place] [facility] [address] [id number] [place] [address]- 4181 Oct, [facility] [place] [facility] [address] [id number] [place] [address]- 5598 Oct, [facility] [place] [facility] [address] [id number] [place] [address] Oct, [facility] [place] [facility] [address] [id number] [place] [address] Oct, [facility] [place] [facility] [address] [id number] [place] [address] Sep, [facility] [place] [facility] [address] [id number] [place] [address] Sep, [facility] [place] [facility] [address] [id number] [place] [address] Sep, [facility] [place] [facility] [address] [id number] [place] [address] Sep, [facility] [place] [facility] [address] [id number] [place] [address] Feb, [facility] [place] [facility] [address] [id number] [place] [address] Feb, [facility] [place] [facility] [address] [id number] [place] [address] Dec, [facility] [place] [facility] [address] [id number] [place] [address] Dec, [facility] [place] [facility] [address] [id number] [place] [address] Nov, [facility] [place] [facility] [address] [id number] [place] [address] Nov, [facility] [place] [facility] [address] [id number] [place] [address] Nov, [facility] [place] [facility] [address] [id number] [place] [address] Nov, [facility] [place] [facility] [address] [id number] [place] [address] Nov, [facility] [place] [facility] [address] [id number] [place] [address] Nov, [facility] [place] [facility] [address] [id number] [place] [address] Oct, [facility] [place] [facility] [address] [id number] [place] [address] Apr, [facility] [place] [facility] [address] [id number] [place] [address] August, [facility] [place] [facility] [address] [id number] [place] [address] August, [facility] [place] [facility] [address] [id number] [place] [address] August, [facility] [place] [facility] [address] [id number] [place] [address] Jul, [facility] [place] [facility] [address] [id number] [place] [address] Jun, [facility] [place] [facility] [address] [id number] [place] [address] Jun, [facility] [place] [facility] [address] [id number] [place] [address] 14 Jun, 2011 [facility] [place] [facility] [address] [id number] [place] [address] 14 Jun, 2011 [facility] [place] [facility] [address] [id number] [place] [address] Jun, [facility] [place] [facility] [address] [id number] [place] [address] Jun, [facility] [place] [facility] [address] [id number] [place] [address] May, [facility] [place] [facility] [address] [id number] [place] [address] 16 May, 2011 [facility] [place] [facility] [address] [id number] [place] [address] May, [facility] [place] [facility] [address] [id number] [place] [address] May, [facility] [place] [facility] [address] [id number] [place] [address] May, [facility] [place] [facility] [address] [id number] [place] [address] 06 May, 2011 [facility] [place] [facility] [address] [id number] [place] [address] Apr, [facility] [place] [facility] [address] [id number] [place] [address] Mar, [facility] [place] [facility] [address] [id number] [place] [address] Mar, [facility] [place] [facility] [address] [id number] [place] [address] Feb, [facility] [place] [facility] [address] [facility] [id number] [place] [address] Jan, [facility] [place] [facility] [id number] [address] Mar, [facility] [id number] [address] Mar, [facility] [id number] [address] Mar, [facility] [id number] [address] Mar, [facility] [id number] [address] Mar, [facility] [id number] [place] [address] Feb, [facility] [id number] [address] Feb, [facility] [id number] [place] [address] Nov, [facility] [id number] [address] May, IMMUNIZATIONS No Known Immunizations SOCIAL HISTORY Never Assessed REASON FOR VISIT med reaction PLAN OF CARE VITAL SIGNS MEDICATIONS Unknown Medications RESULTS No Results PROCEDURES No Known procedures INSTRUCTIONS MEDICATIONS ADMINISTERED No Known Medications MEDICAL (GENERAL) HISTORY Type Description Date Medical History HELP syndrome Medical History bi-polar Medical History hypertension Medical History hx of seizure x1, isolated Surgical History gallbladder 10/2013 Surgical History 03/2014 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
[2017-12-25] MEDS ORDERED: meTOprolol 5 MG/5 ML (LOPRESSOR) VIAL IV ONE (20:30)
--- OUTSIDE RECORDS SUMMARY | 2017-12-25 20:30 | XMS REPORT ---
Author Author JACQUELIN GALEAS Organization [facility] Address [address] [place] [address] Care Team Providers Care Jewelry Polisher Name Role Phone JACQUELIN GALEAS Unavailable PROBLEMS Type Condition ICD9-CM Code [id number] Code Onset Dates Condition Status SNOMED Code Problem Mood disorder F39 Active 52386052 Problem Mixed obsessional thoughts and acts F42.2 Active 23813166 Problem PTSD (post-traumatic stress disorder) F43.10 Active 28737128 Problem Obsessive-compulsive disorder, unspecified type F42.9 Active 086526175 Problem Bipolar I disorder with depression F31.9 Active 85696563 ALLERGIES Substance Reaction Event Type Date Status Azithromycin hives Drug Allergy Mar, Active ORAGEL Unknown Non Drug Allergy Mar, Active SOCIAL HISTORY No smoking Hx information available PLAN OF CARE Activity Details Follow Up prn Reason: VITAL SIGNS Height 64 in 2016-03-26 Weight 272.6 lbs 2016-03-26 Temperature 98.6 degrees Fahrenheit 2016-03-26 Heart Rate 68 bpm 2016-03-26 Respiratory Rate 18 2016-03-26 BMI 46.79 kg/m2 2016-03-26 Blood pressure systolic 130 mmHg 2016-03-26 Blood pressure diastolic 86 mmHg 2016-03-26 MEDICATIONS Medication Instructions Dosage Frequency Start Date End Date Duration Status Mirena 20 MCG/24HR Active Celexa 20 mg Orally Once a day 1 tablet 24h August, Active Windsor 5-325 MG Orally every 4 hrs, PRN 1 tablet as needed Active Abilify 5 mg Orally Once a day 1 tablet 24h Jan, 30 day(s) Active RESULTS No Results PROCEDURES Procedure Date Ordered Related Diagnosis Body Site Office Visit, Est Pt., Level 3 Mar 26, 2016 IMMUNIZATIONS No Known Immunizations
--- OUTSIDE RECORDS SUMMARY | 2017-12-25 20:30 | XMS REPORT ---
Author Author OLY DURBIN [facility] Address [address] [place] [address] Care Team Providers Care Night Filler Name Role Phone OLY DURBIN Unavailable PROBLEMS Type Condition ICD9-CM Code [id number] Code Onset Dates Condition Status SNOMED Code Problem Amenorrhea N91.2 Active 17690304 Problem Mood disorder F39 Active 73019532 Problem PTSD (post-traumatic stress disorder) F43.10 Active 94939264 Problem Bipolar I disorder with depression F31.9 Active 83833729 Problem Mixed obsessional thoughts and acts F42.2 Active 79624945 Problem Obsessive-compulsive disorder, unspecified type F42.9 Active 412050130 ALLERGIES No Information ENCOUNTERS Encounter Location Date Diagnosis [place] [id number] [place] [address] 19787- 4325 Sep, [facility] [id number] [place] [address] 69157- 6315 Sep, [place] [id number] [place] [address] 25448- 7885 August, [facility] [id number] [place] [address] 40714- 1529 August, [facility] [id number] [place] [address] 67559- 3231 Jul, [facility] [id number] [place] [address] 39233- 4229 Jul, PTSD (post-traumatic stress disorder) F43.10 and Bipolar I disorder with depression F31.9 [facility] [id number] [place] [address] 77681- 5391 Jul, Pelvic pain R10.2 ; Amenorrhea N91.2 and BMI 50.0-59.9, adult Z68.43 [facility] [id number] [place] [address] 59140- 5327 26 Jun, 2017 BMI 50.0-59.9, adult Z68.43 ; Bipolar I disorder with depression F31.9 ; PTSD (post-traumatic stress disorder) F43.10 and Mixed obsessional thoughts and acts F42.2 [facility] [id number] [place] [address] 59133 -6210 15 Jun, 2017 Other viral agents as the cause of diseases classified elsewhere B97.89 ; Other specified respiratory disorders J98.8 ; Bronchitis J40 and Cough R05 [facility] [address] 45344- 9638 Jun, PTSD (post-traumatic stress disorder) F43.10 [facility] [id number] [place] [address] 03883- 8987 Jun, PTSD (post-traumatic stress disorder) F43.10 and Bipolar I disorder with depression F31.9 [facility] [id number] [place] [address] 50615- 0205 13 May, 2017 PTSD (post-traumatic stress disorder) F43.10 and Bipolar I disorder with depression F31.9 [facility] [id number] [place] [address] 72292- 8964 12 May, 2017 [facility] [id number] [place] [address] 50871- 9922 07 May, 2017 PTSD (post-traumatic stress disorder) F43.10 and Bipolar I disorder with depression F31.9 [facility] [id number] [place] [address] 04880- 9209 Apr, PTSD (post-traumatic stress disorder) F43.10 and Bipolar I disorder with depression F31.9 [facility] [id number] [place] [address] 23066- 8686 Apr, PTSD (post-traumatic stress disorder) F43.10 and Bipolar I disorder with depression F31.9 [facility] [id number] [address] 6316 Mar, PTSD (post-traumatic stress disorder) F43.10 ; Obsessive- compulsive disorder, unspecified type F42.9 ; Bipolar I disorder with depression F31.9 and 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 [facility] [id number] [address] 3186 Mar, PTSD (post-traumatic stress disorder) F43.10 and Bipolar I disorder with depression F31.9 [facility] [id number] [place] [address] 32816- 0516 Feb, PTSD (post-traumatic stress disorder) F43.10 and Bipolar I disorder with depression F31.9 [facility] [id number] [place] [address] 50015- 8806 Feb, PTSD (post-traumatic stress disorder) F43.10 and Bipolar I disorder with depression F31.9 [facility] [id number] [address] Jan, Strep pharyngitis J02.0 [facility] [id number] [place] [address] 23332 2546 Jan, [facility] [id number] [address] 2546 Jan, [facility] [id number] [place] [address] 97162 2546 Jan, PTSD (post-traumatic stress disorder) F43.10 and Bipolar I disorder with depression F31.9 [facility] [id number] [place] [address] 17992- 4546 Jan, PTSD (post-traumatic stress disorder) F43.10 and Bipolar I disorder with depression F31.9 [facility] [id number] [address]- 2546 Jan, 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 [facility] [address] [address]- [address] 02 Jan, 2017 PTSD (post-traumatic stress disorder) F43.10 ; Obsessive- compulsive disorder, unspecified type F42.9 ; Bipolar I disorder with depression F31.9 and 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 [facility] [address] [place] [address]- 3427 27 Dec, 2016 Encounter for IUD removal Z30.432 and control counseling Z30.09 [facility] [id number] [place] [address] 01731- 8085 25 Dec, 2016 PTSD (post-traumatic stress disorder) F43.10 ; Obsessive- compulsive disorder, unspecified type F42.9 and Bipolar I disorder with depression F31.9 [facility] [id number] [place] [address] 88089- 7611 Dec, PTSD (post-traumatic stress disorder) F43.10 and Bipolar I disorder with depression F31.9 [facility] [id number] [place] [address] 54972- 0888 12 Dec, 2016 PTSD (post-traumatic stress disorder) F43.10 and Bipolar I disorder with depression F31.9 [facility] [id number] [place] [address] 53207- 7104 11 Dec, 2016 Mood disorder F39 [facility] [id number] [place] [address] 47181- 0246 08 Dec, 2016 PTSD (post-traumatic stress disorder) F43.10 ; Mood disorder F39 and Obsessive-compulsive disorder, unspecified type F42.9 [facility] [id number] [place] [address] 78201- 7360 07 Dec, 2016 PTSD (post-traumatic stress disorder) F43.10 and Bipolar I disorder with depression F31.9 [facility] [address] [place] [address] 05 Dec, 2016 Adverse drug reaction, initial encounter T88.7XXA [facility] [address] [address]- 3946 Dec, [facility] [id number] [place] [address] 06303- 0178 Nov, PTSD (post-traumatic stress disorder) F43.10 and Bipolar I disorder with depression F31.9 [facility] [id number] [place] [address] 82522- 0384 Nov, PTSD (post-traumatic stress disorder) F43.10 ; Mood disorder F39 and Obsessive-compulsive disorder, unspecified type F42.9 [facility] [id number] [place] [address] 87949- 0580 Nov, PTSD (post-traumatic stress disorder) F43.10 and Bipolar I disorder with depression F31.9 [facility] [id number] [place] [address] 73471- 3020 Nov, PTSD (post-traumatic stress disorder) F43.10 and Bipolar I disorder with depression F31.9 [facility] [address] [address] Nov, [facility] [id number] [place] [address] 63114- 4612 Nov, PTSD (post-traumatic stress disorder) F43.10 and Bipolar I disorder with depression F31.9 [facility] [id number] [place] [address] 23793- 9240 Nov, PTSD (post-traumatic stress disorder) F43.10 and Bipolar I disorder with depression F31.9 [facility] [id number] [place] [address] 32315- 1174 Oct, [facility] [id number] [place] [address] 81640- 0511 Oct, PTSD (post-traumatic stress disorder) F43.10 ; Mood disorder F39 and Obsessive-compulsive disorder, unspecified type F42.9 [facility] [id number] [address]- 0697 Oct, PTSD (post-traumatic stress disorder) F43.10 and Bipolar I disorder with depression F31.9 [facility] [address], [place] [address]- 9354 Oct, PTSD (post-traumatic stress disorder) F43.10 and Bipolar I disorder with depression F31.9 [facility] [address], [place] [address]- 7682 Oct, PTSD (post-traumatic stress disorder) F43.10 ; Mood disorder F39 and Obsessive-compulsive disorder, unspecified type F42.9 [facility] [id number] [address]- 7422 Oct, [facility] [id number] [address]- 8892 Oct, PTSD (post-traumatic stress disorder) F43.10 and Bipolar I disorder with depression F31.9 [facility] [address] [address]- 2601 Oct, PTSD (post-traumatic stress disorder) F43.10 ; Mood disorder F39 and Obsessive-compulsive disorder, unspecified type F42.9 [facility] [id number] [address]- 6613 Sep, PTSD (post-traumatic stress disorder) F43.10 and Bipolar I disorder with depression F31.9 [facility] [id number] [address]- 0492 Sep, PTSD (post-traumatic stress disorder) F43.10 ; Mood disorder F39 and Obsessive-compulsive disorder, unspecified type F42.9 [facility] [id number], [place] [address]- 4625 Sep, PTSD (post-traumatic stress disorder) F43.10 and Bipolar I disorder with depression F31.9 [facility] [id number] [place] [address] 29328- 3637 Sep, PTSD (post-traumatic stress disorder) F43.10 and Bipolar I disorder with depression F31.9 [facility] [id number] [place] [address] 53582- 9884 August, PTSD (post-traumatic stress disorder) F43.10 and Bipolar I disorder with depression F31.9 [facility] [id number] [place] [address] 19337 -4234 August, Pharyngitis due to other organism J02.8 [facility] [id number] [place] [address] 02611- 7785 August, PTSD (post-traumatic stress disorder) F43.10 ; Bipolar 1 disorder, mixed F31.60 and 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 [facility] [id number] [place] [address] 95286- 1479 August, PTSD (post-traumatic stress disorder) F43.10 and Bipolar I disorder with depression F31.9 [facility] [id number] [place] [address] 13210- 0714 Jul, PTSD (post-traumatic stress disorder) F43.10 and Bipolar I disorder with depression F31.9 [facility] [address], [place] [address]- 0688 Jul, PTSD (post-traumatic stress disorder) F43.10 and Bipolar I disorder with depression F31.9 [facility] [address], [place] [address]- 9179 Jul, PTSD (post-traumatic stress disorder) F43.10 and Bipolar I disorder with depression F31.9 [facility] [id number] [place] [address] 58956- 1906 Jul, 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 [facility] [address] [place] [address]- 1997 Jun, PTSD (post-traumatic stress disorder) F43.10 and Bipolar I disorder with depression F31.9 [place] [id number] [place] [address] 26140- 1762 Jun, Bipolar 1 disorder, mixed F31.60 ; PTSD (post-traumatic stress disorder) F43.10 and Other retirement (current) drug therapy Z79.899 [place] [address] 72961- 3594 Jun, PTSD (post-traumatic stress disorder) F43.10 and Depression , unspecified depression type F32.9 [place] [address] 01932- 4380 Jun, PTSD (post-traumatic stress disorder) F43.10 and Depression , unspecified depression type F32.9 [place] [address] 78120- 0302 Jun, PTSD (post-traumatic stress disorder) F43.10 and Depression , unspecified depression type F32.9 [facility] [address] 07691 -7295 May, Fever, unspecified fever cause R50.9 and Gastroenteritis K52.9 [place] [id number] [place] [address] 64219- 0044 Mar, Sprain of other ligament of right ankle, subsequent encounter S93.491D [place] [id number] [place] [address] 50000- 6172 Mar, [facility] [id number] [place] [address] 29240 -4341 Feb, Scabies infestation B86 [place] [address] 12655- 6502 Feb, Dental caries K02.9 [place] [id number] [place] [address] 31545- 4341 Jan, [facility] [address], [place] [address] -7882 Jan, Pharyngitis, unspecified etiology J02.9 [facility] [id number] [place] [address] 04059- 2757 Jan, [facility] [id number] [place] [address] 95092- 1959 Jan, Bipolar affective disorder, remission status unspecified F31.9 [facility] [id number] [place] [address] 59644- 4416 Jan, Encounter for dental examination and cleaning without abnormal findings Z01.20 [place] [id number] [place] [address] 28793- 4988 Jan, Bipolar affective disorder, remission status unspecified F31.9 [place] [id number] [place] [address] 15662- 1003 Dec, Bipolar affective disorder, remission status unspecified F31.9 and Depression, unspecified depression type F32.9 [place] [id number] [place] [address] 07663- 4102 Dec, Unspecified mood [affective] disorder F39 and Generalized anxiety disorder F41.1 [facility] [id number] [place] [address] 62419- 4376 08 Dec, 2015 Depression, unspecified depression type F32.9 [place] [id number] [place] [address] 30520- 6084 Nov, Dental caries K02.9 [place] [id number] [place] [address] 07656- 6470 Nov, Dental examination Z01.20 [facility] [id number] [place] [address] 11818- 4979 Sep, Bipolar affective disorder, remission status unspecified F31.9 [facility] [address] [place] [address] 12141- 6930 August, Tension headache G44.209 [facility] [id number] [address]147 Jul, [facility] [id number] [place] [address] 78841 -2714 Jul, Upper respiratory infection J06.9 and Gastroenteritis K52.9 [facility] [id number] [place] [address] 05327- 7163 Jun, Bronchitis J40 [facility] [id number] [place] [address] 75782 -0570 Feb, Thoracic back pain M54.6 and Left shoulder pain M25.512 [facility] [id number] [place] [address] 40805- 9181 Feb, [facility] [id number] [place] [address] 78420- 6232 Jul, [facility] [id number] [place] [address] 90765- 5190 Jul, [facility] [id number] [place] [address] 30511- 9445 Apr, [facility] [id number] [place] [address] 90831- 3079 Apr, [facility] [id number] [place] [address] 79632- 2211 Apr, [facility] [id number] [place] [address] 58205- 1256 Apr, [facility] [id number] [place] [address] 84424- 4658 Mar, [facility] [id number] [place] [address] 91715- 7546 Mar, [facility] [id number] [place] [address] 34882- 3154 Mar, [facility] [id number] [place] [address]- 2847 Mar, [facility] [place] [facility] [address] [id number] [place] [address]- 2064 Feb, [facility] [place] [facility] [address] [id number] [place] [address]- 1096 Feb, [facility] [place] [facility] [address] [id number] [place] [address]- 1426 Feb, [facility] [place] [facility] [address] [id number] [place] [address]- 6203 Feb, [facility] [place] [facility] [address] [id number] [place] [address]- 7950 Jan, [facility] [place] [facility] [address] [id number] [place] [address]- 3013 15 Jan, 2014 [facility] [place] [facility] [address] [id number] [place] [address]- 5520 14 Jan, 2014 [facility] [place] [facility] [address] [id number] [place] [address]- 9388 14 Jan, 2014 [facility] [place] [facility] [address] [id number] [place] [address]- 9642 Jan, [facility] [place] [facility] [address] [id number] [place] [address]- 8523 Jan, [facility] [place] [facility] [address] [id number] [place] [address]- 5155 Dec, [facility] [place] [facility] [address] [id number] [place] [address]- 4776 Dec, [facility] [place] [facility] [address] [id number] [place] [address]- 3018 Nov, [facility] [place] [facility] [address] [id number] [place] [address]- 6216 Nov, [facility] [place] [facility] [address] [id number] [place] [address]- 7418 Nov, [facility] [place] [facility] [address] [id number] [place] [address]- 0045 Nov, [facility] [place] [facility] [address] [id number] [place] [address]- 1891 Nov, [facility] [place] [facility] [address] [id number] [place] [address]- 7532 Nov, [facility] [place] [facility] [address] [id number] [place] [address]- 6747 Nov, [facility] [place] [facility] [address] [id number] [place] [address]- 1703 Nov, [facility] [place] [facility] [address] [id number] [place] [address]- 6450 Nov, [facility] [place] [facility] [address] [id number] [place] [address]- 3656 Oct, [facility] [place] [facility] [address] [id number] [place] [address]- 6240 Oct, [facility] [place] [facility] [address] [id number] [place] [address]- 1249 Oct, [facility] [place] [facility] [address] [id number] [place] [address]- 1779 Oct, [facility] [place] [facility] [address] [id number] [place] [address]- 0518 Oct, [facility] [place] [facility] [address] [id number] [place] [address]- 7117 Oct, [facility] [place] [facility] [address] [id number] [place] [address]- 8523 Oct, [facility] [place] [facility] [address] [id number] [place] [address]- 9508 Oct, [facility] [place] [facility] [address] [id number] [place] [address]- 5826 Oct, [facility] [place] [facility] [address] [id number] [place] [address]- 1247 Oct, 2013 [facility] [place] [facility] [address] [id number] [place] [address]- 7952 Oct, 2013 [facility] [place] [facility] [address] [id number] [place] [address]- 9012 Oct, [facility] [place] [facility] [address] [id number] [place] [address]- 9075 Oct, 2013 [facility] [place] [facility] [address] [id number] [place] [address]- 4044 Oct, 2013 [facility] [place] [facility] [address] [id number] [place] [address]- 8183 Oct, [facility] [place] [facility] [address] [id number] [place] [address]- 7795 Oct, [facility] [place] [facility] [address] [id number] [place] [address]- 0428 Oct, [facility] [place] [facility] [address] [id number] [place] [address]- 7522 Oct, [facility] [place] [facility] [address] [id number] [place] [address]- 7400 Oct, [facility] [place] [facility] [address] [id number] [place] [address]- 5805 Sep, [facility] [place] [facility] [address] [id number] [place] [address]- 9702 Sep, [facility] [place] [facility] [address] [id number] [place] [address]- 7576 Sep, [facility] [place] [facility] [address] [id number] [place] [address]- 8583 Sep, [facility] [place] [facility] [address] [id number] [place] [address]- 5108 Feb, [facility] [place] [facility] [address] [id number] [place] [address] Feb, [facility] [place] [facility] [address] [id number] [place] [address] Dec, [facility] [address] [id number] [place] [address] Dec, [facility] [address] [id number] [place] [address] Nov, [facility] [address] [id number] [place] [address] Nov, [facility] [address] [id number] [place] [address] Nov, [facility] [address] [id number] [place] [address] Nov, [facility] [address] [id number] [place] [address] Nov, [facility] [address] [id number] [place] [address] Nov, [facility] [address] [id number] [place] [address] Oct, [facility] [address] [id number] [place] [address] Apr, [facility] [address] [id number] [place] [address] August, [facility] [address] [id number] [place] [address] August, [facility] [address] [id number] [place] [address] August, [facility] [address] [id number] [place] [address] Jul, [facility] [address] [id number] [place] [address] Jun, [facility] [address] [id number] [place] [address] Jun, [facility] [address] [id number] [place] [address] 14 Jun, 2011 [facility] [place] [facility] [address] [id number] [place] [address] 14 Jun, 2011 [facility] [place] [facility] [address] [id number] [place] [address] Jun, [facility] [place] [facility] [address] [id number] [place] [address] Jun, [facility] [place] [facility] [address] [id number] [place] [address] May, [facility] [place] [facility] [address] [id number] [place] [address] 16 May, 2011 [facility] [place] [facility] [address] [id number] [place] [address] May, [facility] [place] [facility] [address] [id number] [place] [address] May, [facility] [place] [facility] [address] [id number] [place] [address] May, [facility] [place] [facility] [address] [facility] [id number] [place] [address] 06 May, 2011 [facility] [place] [facility] [address] [facility] [id number] [place] [address] Apr, [facility] [place] [facility] [address] [id number], [place] [address] Mar, [facility] [place] [facility] [address] [id number] [place] [address] Mar, [facility] [place] [facility] [address] [facility] [id number] [place] [address] Feb, [facility] [place] [facility] [address] [facility] [id number] [place] [address] Jan, [facility] [place] [facility] [address] [id number] [address] 31 Mar, 2009 [facility] [id number] [address] 15 Mar, 2009 [facility] [id number] [address] Mar, [facility] [id number] [address] Mar, [facility] [id number], [place] [address] Mar, [facility] [id number] [address] Feb, [facility] [id number] [address] Feb, [facility] [id number] [address] Nov, [facility] [id number], [place] [address] May, IMMUNIZATIONS No Known Immunizations SOCIAL HISTORY Never Assessed REASON FOR VISIT Follow-up PTSD/Bipolar Disorder PLAN OF CARE Activity Details Follow Up 1 Week Reason: Follow-up VITAL SIGNS MEDICATIONS Unknown Medications RESULTS No Results PROCEDURES Procedure Date Ordered Result Body Site Psychotherapy, patient &/family, 45 minutes, established patient Dec 10, 2016 INSTRUCTIONS MEDICATIONS ADMINISTERED No Known Medications MEDICAL (GENERAL) HISTORY Type Description Date Medical History HELP syndrome Medical History bi-polar Medical History hypertension Medical History hx of seizure x1, isolated Surgical History gallbladder 10/2013 Surgical History 03/2014 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
--- OUTSIDE RECORDS SUMMARY | 2017-12-25 20:31 | XMS REPORT ---
Author Author OLY DURBIN [facility] Address [address] [place] [address] Care Team Providers Care Argon Tester Name Role Phone OLY DURBIN Unavailable PROBLEMS Type Condition ICD9-CM Code AFS43-OR Code Onset Dates Condition Status SNOMED Code Problem Bipolar I disorder with depression F31.9 Active 53864501 Problem Amenorrhea N91.2 Active 72904329 Problem Social anxiety disorder F40.10 Active 51464148 Problem Obsessive-compulsive disorder, unspecified type F42.9 Active 026805424 Problem PTSD (post-traumatic stress disorder) F43.10 Active 50230880 Problem Mood disorder F39 Active 42370690 Problem Mixed obsessional thoughts and acts F42.2 Active 17600841 ALLERGIES No Information ENCOUNTERS Encounter Location Date Diagnosis [place] [id number] [place] [address] 51497- 4720 Sep, [place] [address] [place] [address] [id number] [place] [address] 93185- 1069 Sep, [place] [id number] [place] [address] 69819- 1147 Sep, [facility] [id number] [place] [address] 31120- 9979 August, [facility] [id number] [place] [address] 24283- 1996 August, [facility] [id number] [place] [address] 45283- 4322 Jul, Bipolar I disorder with depression F31.9 ; PTSD (post- traumatic stress disorder) F43.10 ; Mixed obsessional thoughts and acts F42.2 ; Social anxiety disorder F40.10 and BMI 50.0-59.9, adult Z68.43 [facility] [id number] [place] [address] 71401- 7906 18 Jul, 2017 PTSD (post-traumatic stress disorder) F43.10 and Bipolar I disorder with depression F31.9 [place] [id number] [place] [address] 82292- 5385 09 Jul, 2017 Pelvic pain R10.2 ; Amenorrhea N91.2 and BMI 50.0-59.9, adult Z68.43 [place] [id number] [place] [address] 65594- 7370 Jun, BMI 50.0-59.9, adult Z68.43 ; Bipolar I disorder with depression F31.9 ; PTSD (post-traumatic stress disorder) F43.10 and Mixed obsessional thoughts and acts F42.2 [facility] [id number] [place] [address] 75637 -9739 15 Jun, 2017 Other viral agents as the cause of diseases classified elsewhere B97.89 ; Other specified respiratory disorders J98.8 ; Bronchitis J40 and Cough R05 [place] [id number] [place] [address] 74577- 7520 Jun, PTSD (post-traumatic stress disorder) F43.10 [place] [id number] [place] [address] 71054- 6658 Jun, PTSD (post-traumatic stress disorder) F43.10 and Bipolar I disorder with depression F31.9 [place] [id number] [place] [address] 95779- 9633 13 May, 2017 PTSD (post-traumatic stress disorder) F43.10 and Bipolar I disorder with depression F31.9 [place] [id number] [place] [address] 61004- 6512 12 May, 2017 [place] [id number] [place] [address] 85486- 6314 07 May, 2017 PTSD (post-traumatic stress disorder) F43.10 and Bipolar I disorder with depression F31.9 [place] [address] [address]- 7802 Apr, PTSD (post-traumatic stress disorder) F43.10 and Bipolar I disorder with depression F31.9 [facility] [id number] [place] [address] 51215- 7309 Apr, PTSD (post-traumatic stress disorder) F43.10 and Bipolar I disorder with depression F31.9 [place] [id number] [place] [address] 05087- 5920 Mar, PTSD (post-traumatic stress disorder) F43.10 ; Obsessive- compulsive disorder, unspecified type F42.9 ; Bipolar I disorder with depression F31.9 and 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 [place] [address] [id number] [place] [address] 00919- 7742 Mar, PTSD (post-traumatic stress disorder) F43.10 and Bipolar I disorder with depression F31.9 [place] [address] [id number] [place] [address] 16660- 4099 Feb, PTSD (post-traumatic stress disorder) F43.10 and Bipolar I disorder with depression F31.9 [place] [address] [id number] [place] [address] 95635- 7671 Feb, PTSD (post-traumatic stress disorder) F43.10 and Bipolar I disorder with depression F31.9 [facility] [id number] [place] [address] 67553 -0447 Jan, Strep pharyngitis J02.0 [facility] [id number] [place] [address] 26497- 7231 Jan, [facility] [id number] [place] [address] 71677- 0378 Jan, [place] [address] [place] [address] 63988- 8759 Jan, PTSD (post-traumatic stress disorder) F43.10 and Bipolar I disorder with depression F31.9 [facility] [address] [place] [address]- 6613 Jan, PTSD (post-traumatic stress disorder) F43.10 and Bipolar I disorder with depression F31.9 [facility] [address] [place] [address]- 5723 Jan, 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 [place] [address] [id number] [place] [address] 41310- 2276 02 Jan, 2017 PTSD (post-traumatic stress disorder) F43.10 ; Obsessive- compulsive disorder, unspecified type F42.9 ; Bipolar I disorder with depression F31.9 and 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 [place] [address] [place] [address] 17465- 2872 27 Dec, 2016 Encounter for IUD removal Z30.432 and control counseling Z30.09 [place] [address] [id number] [place] [address] 97206- 6959 Dec, PTSD (post-traumatic stress disorder) F43.10 ; Obsessive- compulsive disorder, unspecified type F42.9 and Bipolar I disorder with depression F31.9 [place] [address] [place] [address] 44206- 8930 Dec, PTSD (post-traumatic stress disorder) F43.10 and Bipolar I disorder with depression F31.9 [place] [address] [place] [address] 79973- 4187 Dec, PTSD (post-traumatic stress disorder) F43.10 and Bipolar I disorder with depression F31.9 [place] [id number] [place] [address] 93932- 4919 11 Dec, 2016 Mood disorder F39 [place] [address] [place] [address] 33306- 6060 08 Dec, 2016 PTSD (post-traumatic stress disorder) F43.10 ; Mood disorder F39 and Obsessive-compulsive disorder, unspecified type F42.9 [facility] [address] [place] [id number] [address]- 5202 07 Dec, 2016 PTSD (post-traumatic stress disorder) F43.10 and Bipolar I disorder with depression F31.9 [facility] [id number] [address] -6936 Dec, Adverse drug reaction, initial encounter T88.7XXA [facility] [id number] [place] [address] 86678- 5175 Dec, [facility] [address] [place] [id number] [place] [address] 90588- 7799 Nov, PTSD (post-traumatic stress disorder) F43.10 and Bipolar I disorder with depression F31.9 [facility] [id number] [address]- 2055 Nov, PTSD (post-traumatic stress disorder) F43.10 ; Mood disorder F39 and Obsessive-compulsive disorder, unspecified type F42.9 [facility] [id number] [address]- 3388 Nov, PTSD (post-traumatic stress disorder) F43.10 and Bipolar I disorder with depression F31.9 [facility] [id number] [address]- 8775 Nov, PTSD (post-traumatic stress disorder) F43.10 and Bipolar I disorder with depression F31.9 [facility] [id number], [place] [address] -5782 Nov, [facility] [id number] [address]- 8577 Nov, PTSD (post-traumatic stress disorder) F43.10 and Bipolar I disorder with depression F31.9 [facility] [id number] [address]- 3924 Nov, PTSD (post-traumatic stress disorder) F43.10 and Bipolar I disorder with depression F31.9 [facility] [id number] [address]- 6526 Oct, [facility] [address] [place] [address] 62759- 9511 Oct, PTSD (post-traumatic stress disorder) F43.10 ; Mood disorder F39 and Obsessive-compulsive disorder, unspecified type F42.9 [facility] [address] [place] [address] 24449- 1282 Oct, PTSD (post-traumatic stress disorder) F43.10 and Bipolar I disorder with depression F31.9 [facility] [address] [place] [address] [id number] [place] [address] 14381- 4311 Oct, PTSD (post-traumatic stress disorder) F43.10 and Bipolar I disorder with depression F31.9 [facility] [address] [place] [address] 84623- 7096 Oct, PTSD (post-traumatic stress disorder) F43.10 ; Mood disorder F39 and Obsessive-compulsive disorder, unspecified type F42.9 [facility] [id number] [address]- 9443 Oct, [facility] [id number] [place] [address] 20002- 4322 Oct, PTSD (post-traumatic stress disorder) F43.10 and Bipolar I disorder with depression F31.9 [facility] [address] [place] [address]- 6782 Oct, PTSD (post-traumatic stress disorder) F43.10 ; Mood disorder F39 and Obsessive-compulsive disorder, unspecified type F42.9 [facility] [address] [id number], [place] [address]- 5709 Sep, PTSD (post-traumatic stress disorder) F43.10 and Bipolar I disorder with depression F31.9 [facility] [address] [place] [address]- 8056 Sep, PTSD (post-traumatic stress disorder) F43.10 ; Mood disorder F39 and Obsessive-compulsive disorder, unspecified type F42.9 [facility] [address] [place] [address] 43506- 8061 Sep, PTSD (post-traumatic stress disorder) F43.10 and Bipolar I disorder with depression F31.9 [facility] [id number] [place] [address] 70489- 9617 Sep, PTSD (post-traumatic stress disorder) F43.10 and Bipolar I disorder with depression F31.9 [facility] [address] [id number] [place] [address] 58852- 9423 August, PTSD (post-traumatic stress disorder) F43.10 and Bipolar I disorder with depression F31.9 [facility] [id number] [place] [address] 07992 -1325 August, Pharyngitis due to other organism J02.8 [facility] [id number] [place] [address] 30158- 5114 August, PTSD (post-traumatic stress disorder) F43.10 ; Bipolar 1 disorder, mixed F31.60 and 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 [facility] [address] [place] [address] 91204- 9692 August, PTSD (post-traumatic stress disorder) F43.10 and Bipolar I disorder with depression F31.9 [facility] [address] [place] [address] 20579- 8602 Jul, PTSD (post-traumatic stress disorder) F43.10 and Bipolar I disorder with depression F31.9 [facility] [id number] [place] [address] 51040- 2798 Jul, PTSD (post-traumatic stress disorder) F43.10 and Bipolar I disorder with depression F31.9 [facility] [address] [place] [address] 09187- 0265 Jul, PTSD (post-traumatic stress disorder) F43.10 and Bipolar I disorder with depression F31.9 [facility] [id number] [place] [address] 99174- 2396 Jul, [place] [facility] [place] Z79.899 [place] [address] [id number] [place] [address] 92930- 4512 Jun, PTSD (post-traumatic stress disorder) F43.10 and Bipolar I disorder with depression F31.9 [place] [address] 98023- 3169 Jun, Bipolar 1 disorder, mixed F31.60 ; PTSD (post-traumatic stress disorder) F43.10 and Other [place] [facility] [place] drug therapy Z79.899 [place] [address] [id number] [place] [address] 12946- 9657 Jun, PTSD (post-traumatic stress disorder) F43.10 and Depression , unspecified depression type F32.9 [place] [id number] [place] [address] 23011- 4883 Jun, PTSD (post-traumatic stress disorder) F43.10 and Depression , unspecified depression type F32.9 [place] [id number] [place] [address] 86859- 9736 Jun, PTSD (post-traumatic stress disorder) F43.10 and Depression , unspecified depression type F32.9 [facility] [id number] [place] [address] 96700 -0418 May, Fever, unspecified fever cause R50.9 and Gastroenteritis K52.9 [place] [address] [id number] [place] [address] 86113- 9180 Mar, Sprain of other ligament of right ankle, subsequent encounter S93.491D [facility] [id number] [place] [address] 92450- 4073 Mar, [facility] [address] 49048 -3060 Feb, Scabies infestation B86 [facility] [id number] [place] [address] 04022- 4641 Feb, Dental caries K02.9 [facility] [id number] [place] [address] 37278- 7872 Jan, [facility] [id number] [place] [address] 49423 -1030 Jan, Pharyngitis, unspecified etiology J02.9 [facility] [id number] [place] [address] 68070- 2261 Jan, [facility] [id number] [place] [address] 65179- 9495 Jan, Bipolar affective disorder, remission status unspecified F31.9 [place] [address] [id number] [place] [address] 02918- 9737 Jan, Encounter for dental examination and cleaning without abnormal findings Z01.20 [facility] [id number] [place] [address] 02195- 1902 Jan, Bipolar affective disorder, remission status unspecified F31.9 [facility] [id number] [place] [address] 89018- 1356 Dec, Bipolar affective disorder, remission status unspecified F31.9 and Depression, unspecified depression type F32.9 [facility] [id number] [place] [address] 89563- 1492 Dec, Unspecified mood [affective] disorder F39 and Generalized anxiety disorder F41.1 [facility] [address] [id number] [place] [address] 49456- 1949 08 Dec, 2015 Depression, unspecified depression type F32.9 [facility] [address] [place] [address] 91079- 5607 Nov, Dental caries K02.9 [facility] [id number] [place] [address] 41359- 7891 Nov, Dental examination Z01.20 [facility] [id number] [place] [address] 32064- 9880 Sep, Bipolar affective disorder, remission status unspecified F31.9 [facility] [id number] [place] [address] 79614- 2171 August, Tension headache G44.209 [facility] [id number] [place] [address] 34726 -7033 Jul, [facility] [id number] [place] [address] 59864 -9836 Jul, Upper respiratory infection J06.9 and Gastroenteritis K52.9 [facility] [id number] [place] [address] 47640- 6217 Jun, Bronchitis J40 [facility] [id number] [place] [address] 46930 -4050 Feb, Thoracic back pain M54.6 and Left shoulder pain M25.512 [facility] [id number] [place] [address] 06573- 2225 Feb, [facility] [id number] [place] [address] 38970- 7676 Jul, [facility] [address] [place] [address] 19131- 1012 Jul, [facility] [id number] [place] [address] 24549- 6221 Apr, [facility] [id number] [place] [address] 38294- 8143 Apr, [facility] [id number] [place] [address] 55548- 3012 Apr, [facility] [address] [place] [address] 25261- 6185 Apr, [facility] [id number] 0280 Mar, [facility] [place] [facility] [address] [id number] [place] 3404 Mar, [facility] [place] [facility] [address] [id number] [place] 2052 Mar, [facility] [place] [facility] [address] [id number] [place] [address]- 3046 Mar, [facility] [place] [facility] [address] [id number] [place] [address]- 8677 Feb, [facility] [place] [facility] [address] [id number] [place] 5645 Feb, [facility] [place] [facility] [address] [id number] [place] [address]- 9487 Feb, [facility] [place] [facility] [address] [id number] [place] [address]- 6856 Feb, [facility] [place] [facility] [address] [id number] [place] [address]- 7897 15 Jan, 2014 [facility] [place] [facility] [address] [id number] [place] [address]- 2275 15 Jan, 2014 [facility] [place] [facility] [address] [id number] [place] [address]- 1289 14 Jan, 2014 [facility] [place] [facility] [address] [id number] [place] [address]- 8372 14 Jan, 2014 [facility] [place] [facility] [address] [id number] [place] [address]- 1594 13 Jan, 2014 [facility] [place] [facility] [address] [id number] [place] [address]- 3848 Jan, [facility] [place] [facility] [address] [id number] [place] [address]- 3566 15 Dec, 2013 [facility] [place] [facility] [address] [id number] [place] [address]- 4788 Dec, [facility] [place] [facility] [address] [id number] [place] [address]- 8872 Nov, [facility] [place] [facility] [address] [id number] [place] [address]- 8891 Nov, [facility] [place] [facility] [address] [id number] [place] [address]- 7348 Nov, [facility] [place] [facility] [address] [id number] [place] [address]- 7664 Nov, [facility] [place] [facility] [address] [id number] [place] [address]- 0519 Nov, [facility] [place] [facility] [address] [id number] [place] [address]- 6607 Nov, [facility] [place] [facility] [address] [id number] [place] [address]- 1327 Nov, [facility] [place] [facility] [address] [id number] [place] [address]- 5092 Nov, [facility] [place] [facility] [address] [id number] [place] [address]- 0216 Nov, [facility] [place] [facility] [address] [id number] [place] [address]- 2412 Oct, [facility] [place] [facility] [address] [id number] [place] [address]- 1492 Oct, [facility] [place] [facility] [address] [id number] [place] [address]- 1316 Oct, [facility] [place] [facility] [address] [id number] [place] [address]- 8971 Oct, [facility] [place] [facility] [address] [id number] [place] [address]- 5645 Oct, [facility] [place] [facility] [address] [id number] [place] [address]- 4579 Oct, [facility] [place] [facility] [address] [id number] [place] [address]- 2428 Oct, 2013 [facility] [place] [facility] [address] [id number] [place] [address]- 3997 16 Oct, 2013 [facility] [place] [facility] [address] [id number] [place] [address]- 8381 Oct, 2013 [facility] [place] [facility] [address] [id number] [place] [address]- 6231 Oct, 2013 [facility] [place] [facility] [address] [id number] [place] [address]- 0928 Oct, 2013 [facility] [place] [facility] [address] [id number] [place] [address]- 0193 Oct, 2013 [facility] [place] [facility] [address] [id number] [place] [address]- 1109 Oct, 2013 [facility] [place] [facility] [address] [id number] [place] [address]- 2937 Oct, [facility] [place] [facility] [address] [id number] [place] [address]- 6160 Oct, [facility] [place] [facility] [address] [id number] [place] [address]- 9740 Oct, [facility] [place] [facility] [address] [id number] [place] [address]- 3572 Oct, [facility] [place] [facility] [address] [id number] [place] [address]- 5016 Oct, [facility] [place] [facility] [address] [id number] [place] [address]- 5280 Oct, [facility] [place] [facility] [address] [id number] [place] [address]- 7803 Sep, [facility] [place] [facility] [address] [id number] [place] [address]- 8128 Sep, [facility] [place] [facility] [address] [id number] [place] [address]- 6175 Sep, [facility] [place] [facility] [address] [id number] [place] [address]- 8749 Sep, [facility] [address] [id number] [place] [address]- 0041 Feb, [facility] [place] [facility] [address] [id number] [place] [address] Feb, [facility] [place] [facility] [address] [id number] [place] [address] Dec, [facility] [place] [facility] [address] [id number] [place] [address] Dec, [facility] [place] [facility] [address] [id number] [place] [address] Nov, [facility] [place] [facility] [address] [id number] [place] [address] Nov, [facility] [place] [facility] [address] [id number] [place] [address] Nov, [facility] [place] [facility] [address] [id number] [place] [address] Nov, [facility] [place] [facility] [address] [id number] [place] [address] Nov, [facility] [place] [facility] [address] [id number] [place] [address] Nov, [facility] [place] [facility] [address] [id number] [place] [address] Oct, [facility] [place] [facility] [address] [id number] [place] [address] Apr, [facility] [place] [facility] [address] [id number] [place] [address] August, [facility] [place] [facility] [address] [id number] [place] [address] August, [facility] [place] [facility] [address] [id number] [place] [address] August, [facility] [place] [facility] [address] [id number] [place] [address] Jul, [facility] [place] [facility] [address] [id number] [place] [address] Jun, [facility] [place] [facility] [address] [id number] [place] [address] Jun, [facility] [place] [facility] [address] [id number] [place] [address] Jun, [facility] [place] [facility] [address] [id number] [place] [address] Jun, [facility] [place] [facility] [address] [id number] [place] [address] Jun, [facility] [place] [facility] [address] [id number] [place] [address] Jun, [facility] [place] [facility] [address] [id number] [place] [address] May, [facility] [place] [facility] [address] [id number] [place] [address] May, [facility] [place] [facility] [address] [id number] [place] [address] May, [facility] [place] [facility] [address] [id number] [place] [address] May, [facility] [place] [facility] [address] [id number] [place] [address] May, [facility] [place] [facility] [address] [id number] [place] [address] May, [facility] [place] [facility] [address] [id number] [place] [address] Apr, [facility] [place] [facility] [address] [id number] [place] [address] Mar, [facility] [place] [facility] [id number] [address] Mar, [facility] [id number] [place] [address] Feb, [facility] [id number] [place] [address] Jan, [facility] [id number] [place] [address] Mar, [facility] [id number] [address] Mar, [facility] [id number] [place] [address] Mar, [facility] [id number] [address] Mar, [facility] [id number] [place] [address] Mar, [facility] [id number] [address] Feb, [facility] [id number] [place] [address] Feb, [facility] [id number] [place] [address] Nov, [facility] [id number] [place] [address] May, IMMUNIZATIONS No Known Immunizations SOCIAL HISTORY Never Assessed REASON FOR VISIT Follow-up PTSD/Bipolar Disorder PLAN OF CARE Activity Details Follow Up 1 Week Reason: Follow-up VITAL SIGNS MEDICATIONS Unknown Medications RESULTS No Results PROCEDURES Procedure Date Ordered Result Body Site Psychotherapy, patient &/family, 45 minutes, established patient October 28, 2016 INSTRUCTIONS MEDICATIONS ADMINISTERED No Known Medications MEDICAL (GENERAL) HISTORY Type Description Date Medical History HELP syndrome Medical History bi-polar Medical History hypertension Medical History hx of seizure x1, isolated Surgical History gallbladder 10/2013 Surgical History 03/2014 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
--- NOTE | 2017-12-25 20:33 | ED Neurological Problem ---
General Chief Complaint: Neurological Problems Stated Complaint: CHEST PAIN, L SIDE FACE NUMB, DIFFICULTY SPEAKING Source: patient Exam Limitations: no limitations History of Present Illness Date Seen by Provider: Dec 25, 2017 Time Seen by Provider: 20:30 Initial Comments To ER with reports of central chest pain, left sided facial numbness, left arm "pins and needles" left leg heaviness. The symptoms began at about 3 PM today. She does have a history of hypertension intermittently but takes no medications for it. She does have chest pain but no shortness of breath. She does state that she feels anxious and "I'm always anxious" Timing/Duration: other (5-1/2 hours) Severity: moderate Associated Symptoms: paresthesia Allergies and Home Medications Allergies Coded Allergies: No Known Drug Allergies (Unverified , 11/24/12) Home Medications Cyclobenzaprine HCl 10 Mg Tablet, 10 MG PO Q8H Prescribed by: DAMASO NOLASCO on 02/15/152105 Metoprolol Succinate 50 Mg Tab.er.24h, 50 MG PO DAILY Prescribed by: GILBERTO MENDEZ on 12/25/172322 Naproxen 500 Mg Tablet, 500 MG PO BID Prescribed by: DAMASO NOLASCO on 02/15/152105 Nitrofurantoin Monohyd/M-Cryst 100 Mg Capsule, 100 MG PO BID Prescribed by: DAMASO NOLASCO on 02/15/152105 Patient Home Medication List Home Medication List Reviewed: Yes Review of Systems Review of Systems Constitutional: see HPI Eyes: No Symptoms Reported Ears, Nose, Mouth, Throat: no symptoms reported Respiratory: no symptoms reported Cardiovascular: no symptoms reported Genitourinary: no symptoms reported Musculoskeletal: no symptoms reported Skin: no symptoms reported Psychiatric/Neurological: See HPI; Denies Headache; Numbness Endocrine: No Symptoms Reported Hematologic/Lymphatic: No Symptoms Reported Past Rwcqhpf-Hpoycy-Wvqctt Hx Patient Social History Recent Foreign Travel: No Contact w/Someone Who Travel: No Immunizations Up To Date Tetanus Booster (TDap): More than 5yrs Date of Influenza Vaccine: Feb 07, 2014 Past Medical History Section, Gallbladder Hypertension Reproductive Disorders: Yes (BLIGHTED OVUM 11/2012) Female Reproductive Disorders: Denies 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 4.0oz. 99.199078em; BMI Method:Stated General Appearance: WD/WN, no apparent distress, other (hypertensive on arrival with a blood pressure 215/118. Heart rate is 93 sinus without ectopy.) HEENT: PERRL/EOMI, normal ENT inspection Neck: non-tender, full range of motion Respiratory: lungs clear, normal breath sounds, no respiratory distress, no accessory muscle use Cardiovascular: regular rate, rhythm, no murmur Gastrointestinal: normal bowel sounds, non tender, soft Neurologic/Psychiatric: alert, normal mood/affect, oriented x 3 Crainal Nerves: normal hearing, normal speech, PERRL Skin: normal color, warm/dry Stroke Onset of Symptoms Date of Onset of Symptoms: Dec 25, 2017 Time of Symptom Onset: 20:32 Onset of Symptoms: Yes NIH Stroke Scale Assessment Select: Initial Level of Consciousness: 0=Alert (0), Level of Consciousness- Questions: 0=Answers both month/age (0), LOC Commands: 0=Performs both tasks (0) , Gaze: Normal (0), Visual Barrear: 0=No visual loss (0), Facial Movement ( Facial Paresis): 0=Normal symmetrical mnt no facial paralysis (0), Motor Function-Arms Right: 0=No drift (0), Motor Function-Arms Left: 1=Drift (1), Motor Function-Legs Right: 0=No drift (0), Motor Function-Legs Left: 0=No drift (0), Limb Ataxia: 0=Absent (0), Sensory: 1=Mild to Moderate loss left arm sensory loss but no sensory loss in the left leg (1), Best Language: 0=No aphasia (0), Dysarthria: 0=Normal (0), Extinction & Inattention: 0=No abnormality (0), Total: 2 Stroke Thrombolytic Exclusion Age 18 or Over: Yes Acute intenal hemorrhage: No History of CVA: No Uncontrolled Coagulation Defec: No Severe Hypertension: Yes GI or Bleed: No Subarachnoid Hemorrhage: No Intracranial Neoplasm/Aneurysm: No Oral Anticoagulants: No Surgery or Trauma: No Puncture of Non-Compressible V: No Recent CPR: No Diabetic Hemorrhagic Retinopat: No Organ Biopsy: No Recent Obstetric Delivery: No Glucose: No Significant Hepatic Dysfunctio: No NIH Stoke Scale >22: No Bacterial Endocarditis: No Pericarditis: No Improving Symptoms: No Platelets: No TPA Contraindication: No IV - TPa Received IV - TPa Procedure Performed?: No Progress/Results/Core Measures Results/Orders Lab Results Laboratory Tests Test 12/25/17 21:09 12/25/17 22:09 Range/Units White Blood Count 10.2 4.3-11.0 10^3/uL Red Blood Count 4.47 4.35-5.85 10^6/uL Hemoglobin 13.4 11.5-16.0 G/DL Hematocrit 38 35-52 % Mean Corpuscular Volume 86 80-99 FL Mean Corpuscular Hemoglobin 30 25-34 PG Mean Corpuscular Hemoglobin Concent 35 32-36 G/DL Red Cell Distribution Width 13.0 10.0-14.5 % Platelet Count 335 130-400 10^3/uL Mean Platelet Volume 9.3 7.4-10.4 FL Neutrophils (%) (Auto) 62 42-75 % Lymphocytes (%) (Auto) 26 12-44 % Monocytes (%) (Auto) 9 0-12 % Eosinophils (%) (Auto) 3 0-10 % Basophils (%) (Auto) 1 0-10 % Neutrophils # (Auto) 6.3 1.8-7.8 X 10^3 Lymphocytes # (Auto) 2.6 1.0-4.0 X 10^3 Monocytes # (Auto) 0.9 0.0-1.0 X 10^3 Eosinophils # (Auto) 0.3 0.0-0.3 10^3/uL Basophils # (Auto) 0.1 0.0-0.1 10^3/uL D-Dimer 0.32 0.00-0.49 UG/ML Sodium Level 137 135-145 MMOL/L Potassium Level 3.1 L 3.6-5.0 MMOL/L Chloride Level 104 98-107 MMOL/L Carbon Dioxide Level 23 21-32 MMOL/L Anion Gap 10 5-14 MMOL/L Blood Urea Nitrogen 11 7-18 MG/DL Creatinine 0.75 0.60-1.30 MG/DL Estimat Glomerular Filtration Rate > 60 BUN/Creatinine Ratio 15 Glucose Level 87 70-105 MG/DL Calcium Level 8.9 8.5-10.1 MG/DL Corrected Calcium 8.8 8.5-10.1 MG/DL Total Bilirubin 0.7 0.1-1.0 MG/DL Aspartate Amino Transf (AST/SGOT) 20 5-34 U/L Alanine Aminotransferase (ALT/SGPT) 21 0-55 U/L Alkaline Phosphatase 77 40-136 U/L Total Protein 7.1 6.4-8.2 GM/DL Albumin 4.1 3.2-4.5 GM/DL Serum Test, Qualitative NEGATIVE NEGATIVE Urine Color YELLOW Urine Clarity CLEAR Urine pH 6 5-9 Urine Specific [place] 1.015 L 1.016-1.022 Urine Protein NEGATIVE NEGATIVE Urine Glucose (UA) NEGATIVE NEGATIVE Urine Ketones NEGATIVE NEGATIVE Urine Nitrite NEGATIVE NEGATIVE Urine Bilirubin NEGATIVE NEGATIVE Urine Urobilinogen NORMAL NORMAL MG/DL Urine Leukocyte Esterase 1+ H NEGATIVE Urine RBC (Auto) NEGATIVE NEGATIVE Urine RBC NONE /HPF Urine WBC 5-10 H /HPF Urine Squamous Epithelial Cells 10-25 H /HPF Urine Crystals NONE /LPF Urine Bacteria MODERATE H /HPF Urine Casts NONE /LPF Urine Mucus NEGATIVE /LPF Urine Culture Indicated YES Urine Opiates Screen NEGATIVE NEGATIVE Urine Oxycodone Screen NEGATIVE NEGATIVE Urine Methadone Screen NEGATIVE NEGATIVE Urine Propoxyphene Screen NEGATIVE NEGATIVE Urine Barbiturates Screen NEGATIVE NEGATIVE Ur Tricyclic Antidepressants Screen NEGATIVE NEGATIVE Urine Phencyclidine Screen NEGATIVE NEGATIVE Urine Amphetamines Screen NEGATIVE NEGATIVE Urine Methamphetamines Screen NEGATIVE NEGATIVE Urine Benzodiazepines Screen NEGATIVE NEGATIVE Urine Cocaine Screen NEGATIVE NEGATIVE Urine Cannabinoids Screen NEGATIVE NEGATIVE My Orders Orders - GILBERTO MENDEZ [employer] Cbc With Automated Diff (12/25/17 20:27) Comprehensive Metabolic Panel (12/25/17 20:27) Ua Culture If Indicated (12/25/17 20:27) Hcg,Qualitative Serum (12/25/17 20:27) Fibrin Degradation Products (12/25/17 20:27) Iv Heplock-Insert (Order) (12/25/17 20:27) Chest 1 View, Ap/Pa Only (12/25/17 20:27) Ct Angio Head/Neck (12/25/17 20:28) Metoprolol Tartrate Injection (Lopressor (12/25/17 20:30) Drug Screen Stat (Urine) (12/25/17 20:34) Ekg Tracing (12/25/17 20:34) Iohexol Injection (Omnipaque 350 Mg/Ml 1 (12/25/17 21:00) Ns (Ivpb) (Sodium Chloride 0.9%) (12/25/17 21:00) Pharmacy Communication (Pharmacy Communi (12/25/17 20:48) Potassium Chloride (Tablet) (K Dur Table (12/25/17 22:15) Lorazepam Injection (Ativan Injection) (12/25/17 22:30) Urine Culture (12/25/17 22:09) Medications Given in ED Current Medications Medications Dose Ordered Sig/Krys Route Start Time Stop Time Status Last Admin Dose Admin Iohexol 100 ml ONCE ONCE IV 12/25/17 21:00 12/25/17 21:01 DC 12/25/17 22:38 80 ML Lorazepam 0.5 mg ONCE PRN IVP 12/25/17 22:30 12/25/17 22:49 0.5 MG Metoprolol Tartrate 5 mg ONCE ONCE IV 12/25/17 20:30 12/25/17 20:31 DC 12/25/17 21:21 5 MG Potassium Chloride 40 meq ONCE ONCE PO 12/25/17 22:15 12/25/17 22:16 DC 12/25/17 22:49 40 MEQ Sodium Chloride 250 ml ONCE ONCE IV 12/25/17 21:00 12/25/17 21:01 DC 12/25/17 22:38 80 ML Vital Signs/I&O 12/25/17 20:24 Pulse 109 Resp 18 B/P (MAP) 206/126 (152) Pulse Ox 97 O2 Delivery Room Air Departure Communication (Admissions) 2322-blood pressures down to 122/96 but she reports persistent paresthesias to the left face and left arm. CT angiogram of the head and neck is unremarkable. I do have a call pending to neurology at the [facility], if they have no other suggestions we will discharged home with antihypertensive regimen. [id number]- Dr. Light from neurology at the [facility] feels that the symptoms are likely related to the hypertension. Could consider MRI tomorrow if symptoms persist. Blood pressure is currently 138/100. We will discharged home with a prescription for Toprol. Impression Primary Impression: Hypertension Additional Impression: Left sided paresthesia Disposition: 01 HOME, SELF-CARE Condition: Stable Departure-Patient Inst. Decision time for Depature: 23:23 Referrals: TI FALCON MD (PCP) Primary Care Physician [facility] (Family) Primary Care Physician Patient Instructions: High Blood Pressure Emergencies, Paresthesias (DC) Add. Discharge Instructions: 1. Blood pressure medication as directed 2. Return to ER for any concerns 3. All discharge instructions reviewed with patient and/or family. Voiced understanding. Scripts Metoprolol Succinate (Toprol Xl) 50 Mg Tab.er.24h 50 MG PO DAILY, #20 TAB Prov: GILBERTO MENDEZ APRN 12/25/17 GILBERTO MENDEZ APRN Dec 25, 2017 20:33
--- OUTSIDE RECORDS SUMMARY | 2017-12-25 20:33 | XMS REPORT ---
Author Author [facility] Address [address] [place] [address] Care Team Providers Care Customs Import Specialist Name Role Phone Mark MADISONYEN Unavailable PROBLEMS Type Condition ICD9-CM Code [id number] Code Onset Dates Condition Status SNOMED Code Problem Mood disorder F39 Active 55859961 Problem Mixed obsessional thoughts and acts F42.2 Active 19775327 Problem PTSD (post-traumatic stress disorder) F43.10 Active 45965236 Problem Obsessive-compulsive disorder, unspecified type F42.9 Active 579656774 Problem Bipolar I disorder with depression F31.9 Active [id number] ALLERGIES Substance Reaction Event Type Date Status Azithromycin hives Drug Allergy Oct, Active ORAGEL Unknown Non Drug Allergy Oct, Active ENCOUNTERS Encounter Location Date Diagnosis [facility] [id number] [place] [address] 76638- 9894 August, [facility] [id number] [place] [address] 36046- 3478 Jul, [facility] [id number] [place] [address] 86293- 2618 Jul, [facility] [id number] [place] [address] 29141- 9084 Jun, BMI 50.0-59.9, adult Z68.43 ; Bipolar I disorder with depression F31.9 ; PTSD (post-traumatic stress disorder) F43.10 and Mixed obsessional thoughts and acts F42.2 [facility] [id number] [place] [address] 72571 -1613 Jun, Other viral agents as the cause of diseases classified elsewhere B97.89 ; Other specified respiratory disorders J98.8 ; Bronchitis J40 and Cough R05 [facility] [address], [place] [address] 6[address] 13 Jun, 2017 PTSD (post-traumatic stress disorder) F43.10 [place] [address], [place] [address] 8584 Jun, PTSD (post-traumatic stress disorder) F43.10 and Bipolar I disorder with depression F31.9 [place] [id number] [place] [address] 29812- 5509 13 May, 2017 PTSD (post-traumatic stress disorder) F43.10 and Bipolar I disorder with depression F31.9 [place] [id number] [place] [address] 12230- 3783 12 May, 2017 [place] [id number] [place] [address] 79539- 1696 07 May, 2017 PTSD (post-traumatic stress disorder) F43.10 and Bipolar I disorder with depression F31.9 [place] [id number] [place] [address] 61515- 9694 Apr, PTSD (post-traumatic stress disorder) F43.10 and Bipolar I disorder with depression F31.9 [place] [id number] [place] [address] 06503- 2974 Apr, PTSD (post-traumatic stress disorder) F43.10 and Bipolar I disorder with depression F31.9 [place] [address], [place] [address] 8836 Mar, PTSD (post-traumatic stress disorder) F43.10 ; Obsessive- compulsive disorder, unspecified type F42.9 ; Bipolar I disorder with depression F31.9 and Other long-term (current) drug therapy Z79.899 [place] [id number] [place] [address] 31712- 2663 Mar, PTSD (post-traumatic stress disorder) F43.10 and Bipolar I disorder with depression F31.9 [place] [id number] [place] [address] 44221- 3565 Feb, PTSD (post-traumatic stress disorder) F43.10 and Bipolar I disorder with depression F31.9 [place] [id number] [place] [address] 81328- 6122 Feb, PTSD (post-traumatic stress disorder) F43.10 and Bipolar I disorder with depression F31.9 [facility] [id number] [place] [address] 43693 -5250 Jan, Strep pharyngitis J02.0 [facility] [id number] [place] [address] 87567- 8424 Jan, [place] [address] 39449- 0833 Jan, [place] [id number] [place] [address] 65554- 9209 Jan, PTSD (post-traumatic stress disorder) F43.10 and Bipolar I disorder with depression F31.9 [facility] [id number] [place] [address] 76127- 1711 Jan, PTSD (post-traumatic stress disorder) F43.10 and Bipolar I disorder with depression F31.9 [facility] [id number] [place] [address] 36813- 6618 Jan, Other long-term (current) drug therapy Z79.899 [place] [id number] [place] [address] 39623- 7009 Jan, PTSD (post-traumatic stress disorder) F43.10 ; Obsessive- compulsive disorder, unspecified type F42.9 ; Bipolar I disorder with depression F31.9 and Other intermediate teacher (current) drug therapy Z79.899 [place] [id number] [place] [address] 15707- 6536 Dec, Encounter for IUD removal Z30.432 and control counseling Z30.09 [place] [id number] [place] [address] 97329- 1761 Dec, PTSD (post-traumatic stress disorder) F43.10 ; Obsessive- compulsive disorder, unspecified type F42.9 and Bipolar I disorder with depression F31.9 [facility] [id number] [place] [address] 02055- 6146 Dec, PTSD (post-traumatic stress disorder) F43.10 and Bipolar I disorder with depression F31.9 [facility] [id number] [place] [address] 81424- 2412 Dec, PTSD (post-traumatic stress disorder) F43.10 and Bipolar I disorder with depression F31.9 [facility] [id number] [place] [address] 10717- 1803 Dec, Mood disorder F39 [facility] [id number] [place] [address] 62656- 4487 Dec, PTSD (post-traumatic stress disorder) F43.10 ; Mood disorder F39 and Obsessive-compulsive disorder, unspecified type F42.9 [facility] [address] [place] [address] 41850- 4180 Dec, PTSD (post-traumatic stress disorder) F43.10 and Bipolar I disorder with depression F31.9 [facility] [id number] [place] [address] 32585 -4046 Dec, Adverse drug reaction, initial encounter T88.7XXA [facility] [id number] [place] [address] 24410- 2576 Dec, [facility] [id number] [place] [address] 45748- 5379 Nov, PTSD (post-traumatic stress disorder) F43.10 and Bipolar I disorder with depression F31.9 [facility] [id number] [place] [address] 15441- 8695 Nov, PTSD (post-traumatic stress disorder) F43.10 ; Mood disorder F39 and Obsessive-compulsive disorder, unspecified type F42.9 [facility] [address], [place] [address]- 6610 Nov, PTSD (post-traumatic stress disorder) F43.10 and Bipolar I disorder with depression F31.9 [facility] [id number] [address]- 7936 Nov, PTSD (post-traumatic stress disorder) F43.10 and Bipolar I disorder with depression F31.9 [facility] [id number], [place] [address] Nov, [facility] [id number] [place] [address] 21047- 6541 Nov, PTSD (post-traumatic stress disorder) F43.10 and Bipolar I disorder with depression F31.9 [facility] [address], [place] [address]- 5356 Nov, PTSD (post-traumatic stress disorder) F43.10 and Bipolar I disorder with depression F31.9 [facility] [address], [place] [address]- 9012 Oct, [facility] [id number] [place] [address] 80812- 4695 Oct, PTSD (post-traumatic stress disorder) F43.10 ; Mood disorder F39 and Obsessive-compulsive disorder, unspecified type F42.9 [facility] [address], [place] [address]- 9013 Oct, PTSD (post-traumatic stress disorder) F43.10 and Bipolar I disorder with depression F31.9 [facility] [id number], [place] [address]- 4258 Oct, PTSD (post-traumatic stress disorder) F43.10 and Bipolar I disorder with depression F31.9 [facility] [id number], [place] [address]- 5026 Oct, PTSD (post-traumatic stress disorder) F43.10 ; Mood disorder F39 and Obsessive-compulsive disorder, unspecified type F42.9 [facility] [address], [place] [address]- 7688 Oct, [facility] [id number] [place] [address] 34814- 5396 Oct, PTSD (post-traumatic stress disorder) F43.10 and Bipolar I disorder with depression F31.9 [facility] [id number] [place] [address] 18444- 7658 Oct, PTSD (post-traumatic stress disorder) F43.10 ; Mood disorder F39 and Obsessive-compulsive disorder, unspecified type F42.9 [facility] [id number] [place] [address] 99002- 0042 Sep, PTSD (post-traumatic stress disorder) F43.10 and Bipolar I disorder with depression F31.9 [facility] [address] [place] [address] 00142- 5002 Sep, PTSD (post-traumatic stress disorder) F43.10 ; Mood disorder F39 and Obsessive-compulsive disorder, unspecified type F42.9 [facility] [id number] [place] [address] 80024- 2218 Sep, PTSD (post-traumatic stress disorder) F43.10 and Bipolar I disorder with depression F31.9 [facility] [address], [place] [address]- 6198 Sep, PTSD (post-traumatic stress disorder) F43.10 and Bipolar I disorder with depression F31.9 [facility] [address], [place] [address]- 5021 August, PTSD (post-traumatic stress disorder) F43.10 and Bipolar I disorder with depression F31.9 [facility] [address], [place] [address] -9605 August, Pharyngitis due to other organism J02.8 [facility] [id number] [place] [address] 90995- 2407 August, PTSD (post-traumatic stress disorder) F43.10 ; Bipolar 1 disorder, mixed F31.60 and Other long-term (current) drug therapy Z79.899 [facility] [address] [place] [address] 97905- 8795 August, PTSD (post-traumatic stress disorder) F43.10 and Bipolar I disorder with depression F31.9 [facility] [id number] [place] [address] 08022- 4724 Jul, PTSD (post-traumatic stress disorder) F43.10 and Bipolar I disorder with depression F31.9 [facility] [id number] [place] [address] 04561- 9369 Jul, PTSD (post-traumatic stress disorder) F43.10 and Bipolar I disorder with depression F31.9 [facility] [address] [place] [address] 71626- 5758 Jul, PTSD (post-traumatic stress disorder) F43.10 and Bipolar I disorder with depression F31.9 [facility] [address] [place] [address] 94479- 4660 Jul, Other long-term (current) drug therapy Z79.899 [facility] [address] [place] [address] 40468- 1319 Jun, PTSD (post-traumatic stress disorder) F43.10 and Bipolar I disorder with depression F31.9 [facility] [address] [place] [address] 18179- 3692 Jun, Bipolar 1 disorder, mixed F31.60 ; PTSD (post-traumatic stress disorder) F43.10 and Other long-term (current) drug therapy Z79.899 [facility] [address] [place] [address] 83469- 1591 Jun, PTSD (post-traumatic stress disorder) F43.10 and Depression , unspecified depression type F32.9 [facility] [id number] [place] [address] 71191- 4314 Jun, PTSD (post-traumatic stress disorder) F43.10 and Depression , unspecified depression type F32.9 [place] [id number] [place] [address]- 3222 Jun, PTSD (post-traumatic stress disorder) F43.10 and Depression , unspecified depression type F32.9 [facility] [address] 55806 -3758 May, Fever, unspecified fever cause R50.9 and Gastroenteritis K52.9 [place] [address] 811340- 0543 Mar, Sprain of other ligament of right ankle, subsequent encounter S93.491D [place] [address] 41098- 2143 Mar, [facility] [place] [address] 73029 -4320 Feb, Scabies infestation B86 [place] [address] 72086- 4723 Feb, Dental caries K02.9 [place] [id number] [place] [address] 60680- 2819 Jan, [facility] [place] [id number] [place] [address] 74473 -6299 Jan, Pharyngitis, unspecified etiology J02.9 [place] [id number] [place] [address] 37625- 8928 Jan, [place] [address] 05861- 1729 Jan, Bipolar affective disorder, remission status unspecified F31.9 [place] [address] 60766- 4851 Jan, Encounter for dental examination and cleaning without abnormal findings Z01.20 [place] [id number] [place] [address] 27398- 4140 Jan, Bipolar affective disorder, remission status unspecified F31.9 [place] [id number] [place] [address] 29292- 3667 29 Dec, 2015 Bipolar affective disorder, remission status unspecified F31.9 and Depression, unspecified depression type F32.9 [place] [id number] [place] [address] 65775- 0759 Dec, Unspecified mood [affective] disorder F39 and Generalized anxiety disorder F41.1 [place] [address] 46451- 8913 08 Dec, 2015 Depression, unspecified depression type F32.9 [place] [id number] [place] [address] 50298- 9565 Nov, Dental caries K02.9 [place] [address] 75509- 4646 Nov, Dental examination Z01.20 [place] [id number] [place] [address] 15755- 5838 Sep, Bipolar affective disorder, remission status unspecified F31.9 [place] [id number] [place] [address] 13780- 1168 August, Tension headache G44.209 [facility] [id number] [place] [address] 79953 -5713 Jul, [facility] [id number] [place] [address] 96619 -6652 Jul, Upper respiratory infection J06.9 and Gastroenteritis K52.9 [place] [id number] [place] [address] 44677- 2989 Jun, Bronchitis J40 [facility] [place] [id number] [place] [address] 79743 -5248 05 Feb, 2015 Thoracic back pain M54.6 and Left shoulder pain M25.512 [facility] [address] [id number] [place] [address]- 5201 05 Feb, 2015 [facility] [address] [id number] [place] [address]- 5690 14 Jul, 2014 [facility] [address] [facility] [id number] [place] [address]- 0693 Jul, [facility] [address] [id number], [place] [address]- 0431 Apr, [facility] [address] [id number] [place] [address]- 7993 Apr, [facility] [address] [facility] [id number], [place] [address]- 0415 Apr, [facility] [address] [facility] [id number], [place] [address]- 9927 Apr, [facility] [address] [facility] [id number], [place] [address]- 0813 Mar, [facility] [address] [facility] [id number], [place] [address]- 2503 Mar, [facility] [place] [facility] [id number], [place] [address]- 4501 Mar, [facility] [place] [facility] [id number], [place] [address]- 3057 Mar, [facility] [place] [facility] [address] [id number], [place] [address]- 2089 Feb, [facility] [place] [facility] [address] [facility] [id number], [place] [address]- 5903 Feb, [facility] [place] [facility] [address] [facility] [id number], [place] [address]- 8254 Feb, [facility] [place] [facility] [id number] 1201 Feb, [facility] [place] [facility] [address] [facility] [id number] [place] [address]- 9577 15 Jan, 2014 [facility] [place] [facility] [address] [id number] [place] [address]- 7743 15 Jan, 2014 [facility] [place] [facility] [address] [id number] [place] [address]- 5948 14 Jan, 2014 [facility] [place] [facility] [address] [id number] [place] [address]- 7362 14 Jan, 2014 [facility] [place] [facility] [address] [id number] [place] [address]- 9148 13 Jan, 2014 [facility] [place] [facility] [address] [id number] [place] [address]- 6000 Jan, [facility] [place] [facility] [address] [id number] [place] [address]- 6952 15 Dec, 2013 [facility] [place] [facility] [address] [id number] [place] [address]- 2158 Dec, [facility] [place] [facility] [address] [id number] [place] [address]- 7554 Nov, [facility] [place] [facility] [address] [id number] [place] [address]- 5360 Nov, [facility] [place] [facility] [address] [id number] [place] [address]- 9060 Nov, [facility] [place] [facility] [address] [id number] [place] [address]- 3543 Nov, [facility] [place] [facility] [address] [id number] [place] [address]- 6712 Nov, [facility] [place] [facility] [address] [id number] [place] [address]- 9268 Nov, [facility] [place] [facility] [address] [id number] [place] [address]- 1858 Nov, [facility] [place] [facility] [address] [id number] [place] [address]- 3516 Nov, [facility] [place] [facility] [address] [id number] [place] [address]- 9947 Nov, [facility] [place] [facility] [address] [id number] [place] [address]- 6305 Oct, [facility] [place] [facility] [address] [id number] [place] [address]- 2549 Oct, [facility] [place] [facility] [address] [id number] [place] [address]- 6327 Oct, [facility] [place] [facility] [address] [id number] [place] [address]- 0911 Oct, [facility] [place] [facility] [address] [id number] [place] [address]- 7769 Oct, [facility] [place] [facility] [address] [id number] [place] [address]- 9598 Oct, [facility] [place] [facility] [address] [id number] [place] [address]- 6992 Oct, [facility] [place] [facility] [address] [id number] [place] [address]- 9687 Oct, [facility] [place] [facility] [address] [id number] [place] [address]- 2788 Oct, [facility] [place] [facility] [address] [id number] [place] [address]- 4315 Oct, [facility] [place] [facility] [address] [id number] [place] [address]- 3638 Oct, [facility] [place] [facility] [address] [id number] [place] [address]- 4692 Oct, [facility] [place] [facility] [address] [id number] [place] [address]- 8118 Oct, [facility] [place] [facility] [address] [id number] [place] [address]- 2793 Oct, [facility] [place] [facility] [address] [id number] [place] [address]- 2394 Oct, [facility] [place] [facility] [address] [id number] [place] [address]- 3736 Oct, [facility] [place] [facility] [address] [id number] [place] [address]- 4213 Oct, [facility] [place] [facility] [address] [id number] [place] [address]- 8651 Oct, [facility] [place] [facility] [address] [id number] [place] [address]- 5533 Oct, [facility] [place] [facility] [address] [id number] [place] [address]- 5797 Sep, [facility] [place] [facility] [address] [id number] [place] [address]- 8528 Sep, [facility] [place] [facility] [address] [id number] [place] [address]- 4410 Sep, [facility] [place] [facility] [address] [id number] [place] [address]- 5874 Sep, [facility] [place] [facility] [address] [id number] [place] [address]- 4591 Feb, [facility] [place] [facility] [address] [id number] [place] [address]- 0669 Feb, [facility] [place] [facility] [address] [id number] [place] [address]- 0705 Dec, [facility] [place] [facility] [address] [id number] [place] [address]- 2426 Dec, [facility] [place] [facility] [address] [id number] [place] [address]- 1838 Nov, [facility] [place] [facility] [address] [id number] [place] [address]- 9047 Nov, [facility] [place] [facility] [address] [id number] [place] [address]- 1490 Nov, [facility] [place] [facility] [address] [id number] [place] [address]- 2036 Nov, [facility] [address] [id number] [place] [address]- 9997 Nov, [facility] [address] [id number] [place] [address] 2546 Nov, [facility] [address] [id number] [place] [address]- 5299 Oct, [facility] [address] [id number] [place] [address]- 4543 Apr, [facility] [address] [id number] [place] [address]- 6093 August, [facility] [address] [id number] [place] [address] August, [facility] [address] [id number] [place] [address] August, [facility] [address] [id number] [place] [address] Jul, [facility] [address] [id number] [place] [address] Jun, [facility] [address] [id number] [place] [address] Jun, [facility] [address] [id number] [place] [address] Jun, [facility] [address] [id number] [place] [address] Jun, [facility] [address] [id number] [place] [address] Jun, [facility] [address] [id number] [place] [address] Jun, [facility] [address] [id number] [place] [address] May, [facility] [place] [facility] [address] [id number] [place] [address] 16 May, 2011 [facility] [place] [facility] [address] [id number] [place] [address] 09 May, 2011 [facility] [place] [facility] [address] [facility] [id number] [place] [address] 07 May, 2011 [facility] [place] [facility] [address] [id number] [place] [address] May, [facility] [place] [facility] [address] [id number] [place] [address] May, [facility] [place] [facility] [address] [facility] [id number] [place] [address] Apr, [facility] [place] [facility] [address] [facility] [id number] [place] [address] 07 Mar, 2011 [facility] [place] [facility] [address] [id number] [place] [address] Mar, [facility] [place] [facility] [address] [facility] [id number] [place] [address] Feb, [facility] [place] [facility] [address] [facility] [id number] [place] [address] Jan, [facility] [place] [facility] [address] [facility] [id number] [place] [address] 31 Mar, 2009 [facility] [place] [facility] [address] [id number], [place] [address] 15 Mar, 2009 [facility] [place] [facility] [address] [id number] [place] [address] 10 Mar, 2009 [facility] [place] [facility] [address] [facility] [id number] [place] [address] 10 Mar, 2009 [facility] [place] [facility] [address] [facility] [id number] [place] [address] 02 Mar, 2009 [facility] [place] [facility] [address] [facility] [id number] [place] [address] Feb, [facility] [address] [facility] [id number], [place] [address] Feb, [facility] [address] [facility] [id number] [address] Nov, [facility] [address] [id number], [place] [address] May, IMMUNIZATIONS No Known Immunizations SOCIAL HISTORY Never Assessed REASON FOR VISIT F/U. Markus PEARCE PLAN OF CARE Activity Details Follow Up 4 Weeks Reason: f/u VITAL SIGNS Height 64 in 2016-10-14 Weight 277.2 lbs 2016-10-14 Heart Rate 80 bpm 2016-10-14 Respiratory Rate 20 2016-10-14 BMI 47.58 kg/m2 2016-10-14 Blood pressure systolic 132 mmHg 2016-10-14 Blood pressure diastolic 88 mmHg 2016-10-14 MEDICATIONS Medication Instructions Dosage Frequency Start Date End Date Duration Status Lamictal 25 MG Orally daily for two weeks, then 2 tablets daily 1 tablet Oct, 30 day(s) Active Topamax 25 MG Orally at bedtime 1 tablet Oct, 30 day(s) Active Mirena 20 MCG/24HR Active Celexa 20 mg Orally Once a day 1.5 tablets 24h Oct, 30 days Active RESULTS No Results PROCEDURES No Known procedures INSTRUCTIONS MEDICATIONS ADMINISTERED No Known Medications MEDICAL (GENERAL) HISTORY Type Description Date Medical History HELP syndrome Medical History bi-polar Medical History hypertension Medical History hx of seizure x1, isolated Surgical History gallbladder 10/2013 Surgical History 03/2014 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
--- OUTSIDE RECORDS SUMMARY | 2017-12-25 20:33 | XMS REPORT ---
Author Author OLY DURBIN Organization [facility] Address [address] [place] [address] Care Team Providers Care Crab Steamer Name Role Phone OLY DURBIN Unavailable PROBLEMS Type Condition ICD9-CM Code [id number] Code Onset Dates Condition Status SNOMED Code Problem Mood disorder F39 Active 36011071 Problem Mixed obsessional thoughts and acts F42.2 Active 43651550 Problem PTSD (post-traumatic stress disorder) F43.10 Active 96112472 Problem Obsessive-compulsive disorder, unspecified type F42.9 Active 517776225 Problem Bipolar I disorder with depression F31.9 Active [id number] ALLERGIES No Information ENCOUNTERS Encounter Location Date Diagnosis [facility] [address] [address] August, [facility] [address] [address] Jul, [facility] [address] [address] Jul, [facility] [address] [address] Jun, BMI 50.0-59.9, adult Z68.43 ; Bipolar I disorder with depression F31.9 ; PTSD (post-traumatic stress disorder) F43.10 and Mixed obsessional thoughts and acts F42.2 [facility] [address] [address] 15 Jun, 2017 Other viral agents as the cause of diseases classified elsewhere B97.89 ; Other specified respiratory disorders J98.8 ; Bronchitis J40 and Cough R05 [facility] [address] [address] 13 Jun, 2017 PTSD (post-traumatic stress disorder) F43.10 [facility] [id number], [place] [address] 13 Jun, 2017 PTSD (post-traumatic stress disorder) F43.10 and Bipolar I disorder with depression F31.9 [facility] [address] [facility] [id number] [address] 13 May, 2017 PTSD (post-traumatic stress disorder) F43.10 and Bipolar I disorder with depression F31.9 [facility] [id number], [place] [address] 12 May, 2017 [facility] [id number] [place] [address]- [address] 07 May, 2017 PTSD (post-traumatic stress disorder) F43.10 and Bipolar I disorder with depression F31.9 [facility] [address] [id number], [place] [address] 30 Apr, 2017 PTSD (post-traumatic stress disorder) F43.10 and Bipolar I disorder with depression F31.9 [facility] [id number], [place] [address] Apr, PTSD (post-traumatic stress disorder) F43.10 and Bipolar I disorder with depression F31.9 [facility] [id number], [place] [address] 18 Mar, 2017 PTSD (post-traumatic stress disorder) F43.10 ; Obsessive- compulsive disorder, unspecified type F42.9 ; Bipolar I disorder with depression F31.9 and Other oysterman (current) drug therapy Z79.899 [facility] [address] [id number], [place] [address] Mar, PTSD (post-traumatic stress disorder) F43.10 and Bipolar I disorder with depression F31.9 [facility] [id number], [place] [address] Feb, PTSD (post-traumatic stress disorder) F43.10 and Bipolar I disorder with depression F31.9 [facility] [address], [place] [address] 07 Feb, 2017 PTSD (post-traumatic stress disorder) F43.10 and Bipolar I disorder with depression F31.9 [facility] [address], [place] [address] Jan, Strep pharyngitis J02.0 [facility] [id number] [place] [address] 28237- 4220 Jan, [facility] [id number] [place] [address] 0[address]50- 2528 Jan, [facility] [id number] [place] [address] 36013- 1143 Jan, PTSD (post-traumatic stress disorder) F43.10 and Bipolar I disorder with depression F31.9 [facility] [id number] [place] [address] 58602- 7670 Jan, PTSD (post-traumatic stress disorder) F43.10 and Bipolar I disorder with depression F31.9 [facility] [id number] [place] [address] 82268- 7881 Jan, Other oysterman (current) drug therapy Z79.899 [facility] [id number] [place] [address] 13614- 2629 Jan, PTSD (post-traumatic stress disorder) F43.10 ; Obsessive- compulsive disorder, unspecified type F42.9 ; Bipolar I disorder with depression F31.9 and Other halfway (current) drug therapy Z79.899 [facility] [address], [place] [address] Dec, Encounter for IUD removal Z30.432 and control counseling Z30.09 [facility] [address], [place] [address] Dec, PTSD (post-traumatic stress disorder) F43.10 ; Obsessive- compulsive disorder, unspecified type F42.9 and Bipolar I disorder with depression F31.9 [facility] [id number], [place] [address] 25 Dec, 2016 PTSD (post-traumatic stress disorder) F43.10 and Bipolar I disorder with depression F31.9 [facility] [id number] [place] [address] 37672- 8570 12 Dec, 2016 PTSD (post-traumatic stress disorder) F43.10 and Bipolar I disorder with depression F31.9 [facility] [id number] [place] [address] 26976- 3484 11 Dec, 2016 Mood disorder F39 [facility] [id number] [place] [address] 79072- 7506 08 Dec, 2016 PTSD (post-traumatic stress disorder) F43.10 ; Mood disorder F39 and Obsessive-compulsive disorder, unspecified type F42.9 [facility] [id number] [place] [address] 28761- 3229 Dec, PTSD (post-traumatic stress disorder) F43.10 and Bipolar I disorder with depression F31.9 [facility] [id number] [place] [address] Dec, Adverse drug reaction, initial encounter T88.7XXA [facility] [address], [place] [address] Dec, [facility] [id number] [place] [address] 92798- 6985 Nov, PTSD (post-traumatic stress disorder) F43.10 and Bipolar I disorder with depression F31.9 [facility] [id number] [place] [address] 94708- 8269 Nov, PTSD (post-traumatic stress disorder) F43.10 ; Mood disorder F39 and Obsessive-compulsive disorder, unspecified type F42.9 [facility] [id number], [place] [address] Nov, PTSD (post-traumatic stress disorder) F43.10 and Bipolar I disorder with depression F31.9 [facility] [id number], [place] [address] Nov, PTSD (post-traumatic stress disorder) F43.10 and Bipolar I disorder with depression F31.9 [facility] [id number], [place] [address] Nov, [facility] [id number] [place] [address] 49212- 6620 Nov, PTSD (post-traumatic stress disorder) F43.10 and Bipolar I disorder with depression F31.9 [facility] [id number] [place] [address] 87844- 0827 Nov, PTSD (post-traumatic stress disorder) F43.10 and Bipolar I disorder with depression F31.9 [facility] [id number] [place] [address] 69846- 1952 Oct, [facility] [id number] [place] [address] 88855- 4988 Oct, PTSD (post-traumatic stress disorder) F43.10 ; Mood disorder F39 and Obsessive-compulsive disorder, unspecified type F42.9 [facility] [address], [place] [address]- 76[address] Oct, PTSD (post-traumatic stress disorder) F43.10 and Bipolar I disorder with depression F31.9 [facility] [id number], [place] [address]- 3[address] Oct, PTSD (post-traumatic stress disorder) F43.10 and Bipolar I disorder with depression F31.9 [facility] [id number], [place] [address] 7[address] Oct, PTSD (post-traumatic stress disorder) F43.10 ; Mood disorder F39 and Obsessive-compulsive disorder, unspecified type F42.9 [facility] [id number], [place] [address]- [address] Oct, [facility] [address], [place] [address]- 6707 Oct, PTSD (post-traumatic stress disorder) F43.10 and Bipolar I disorder with depression F31.9 [facility] [address], [place] [address]- 94[address] Oct, PTSD (post-traumatic stress disorder) F43.10 ; Mood disorder F39 and Obsessive-compulsive disorder, unspecified type F42.9 [place] [address], [place] [address]- [address] Sep, PTSD (post-traumatic stress disorder) F43.10 and Bipolar I disorder with depression F31.9 [facility] [address] [place] [address] 85864- 2588 Sep, PTSD (post-traumatic stress disorder) F43.10 ; Mood disorder F39 and Obsessive-compulsive disorder, unspecified type F42.9 [place] [address], [place] [address]- 9[address] Sep, PTSD (post-traumatic stress disorder) F43.10 and Bipolar I disorder with depression F31.9 [place] [id number] [place] [address] 31506- 7807 Sep, PTSD (post-traumatic stress disorder) F43.10 and Bipolar I disorder with depression F31.9 [place] [address], [place] [address] 132[address] August, PTSD (post-traumatic stress disorder) F43.10 and Bipolar I disorder with depression F31.9 [facility] [id number] [place] [address] 7[address]1331 August, Pharyngitis due to other organism J02.8 [facility] [id number] [place] [address] 62214- 5628 August, PTSD (post-traumatic stress disorder) F43.10 ; Bipolar 1 disorder, mixed F31.60 and Other halfway (current) drug therapy Z79.899 [facility] [id number], [place] [address] 2546 August, PTSD (post-traumatic stress disorder) F43.10 and Bipolar I disorder with depression F31.9 [facility] [id number], [place] [address] 2546 Jul, PTSD (post-traumatic stress disorder) F43.10 and Bipolar I disorder with depression F31.9 [facility] [id number], [place] [address] 2546 Jul, PTSD (post-traumatic stress disorder) F43.10 and Bipolar I disorder with depression F31.9 [facility] [id number], [place] [address] 2546 Jul, PTSD (post-traumatic stress disorder) F43.10 and Bipolar I disorder with depression F31.9 [facility] [id number], [place] [address] Jul, Other halfway (current) drug therapy Z79.899 [facility] [id number], [place] [address] 2546 Jun, PTSD (post-traumatic stress disorder) F43.10 and Bipolar I disorder with depression F31.9 [facility] [id number], [place] [address] 2546 Jun, Bipolar 1 disorder, mixed F31.60 ; PTSD (post-traumatic stress disorder) F43.10 and Other halfway (current) drug therapy Z79.899 [facility] [id number], [place] [address] 2546 Jun, PTSD (post-traumatic stress disorder) F43.10 and Depression , unspecified depression type F32.9 [facility] [id number], [place] [address] 2546 14 Jun, 2016 PTSD (post-traumatic stress disorder) F43.10 and Depression , unspecified depression type F32.9 [place] [id number] [place] [address] 27356- 9194 Jun, PTSD (post-traumatic stress disorder) F43.10 and Depression , unspecified depression type F32.9 [facility] [id number] [place] [address] 22208 [address]3849 May, Fever, unspecified fever cause R50.9 and Gastroenteritis K52.9 [place] [address] [address]- [address] Mar, Sprain of other ligament of right ankle, subsequent encounter S93.491D [place] [address] 25457- 1207 Mar, [facility] [place] [address] 2020[address] Feb, Scabies infestation B86 [place] [address] [address]- 5844 Feb, Dental caries K02.9 [place] [address] 49684- 4130 Jan, [facility] [place] [address] [address] Jan, Pharyngitis, unspecified etiology J02.9 [place] [address] [address]- 9193 Jan, [place] [address] 48384- 9222 Jan, Bipolar affective disorder, remission status unspecified F31.9 [place] [address] 36[address]- 5271 Jan, Encounter for dental examination and cleaning without abnormal findings Z01.20 [place] [address] 22561- 1766 Jan, Bipolar affective disorder, remission status unspecified F31.9 [facility] [id number] [place] [address] 32982- 8009 29 Dec, 2015 Bipolar affective disorder, remission status unspecified F31.9 and Depression, unspecified depression type F32.9 [place] [id number] [place] [address] 43206- 6847 12 Dec, 2015 Unspecified mood [affective] disorder F39 and Generalized anxiety disorder F41.1 [place] [id number] [place] [address] 90253- 0158 08 Dec, 2015 Depression, unspecified depression type F32.9 [place] [address] [address]15- 9845 Nov, Dental caries K02.9 [place] [address] 65882- 6699 Nov, Dental examination Z01.20 [place] [address] 72696- 4896 Sep, Bipolar affective disorder, remission status unspecified F31.9 [place] [address] 91186- 9752 August, Tension headache G44.209 [facility] [id number] [place] [address] 04186 -4377 Jul, [facility] [id number] [place] [address] 87774 -8633 Jul, Upper respiratory infection J06.9 and Gastroenteritis K52.9 [place] [id number] [place] [address] 19420- 1999 Jun, Bronchitis J40 [facility] [address] 15608 -1225 05 Feb, 2015 Thoracic back pain M54.6 and Left shoulder pain M25.512 [place] [address] 98234- 3304 Feb, [facility] [place] [facility] [address] [id number] [place] [address]- 2372 14 Jul, 2014 [facility] [place] [facility] [address] [id number] [place] [address]- 7176 Jul, [facility] [place] [facility] [address] [id number] [place] [address]- 0596 Apr, [facility] [place] [facility] [address] [id number] [place] [address]- 7848 Apr, [facility] [place] [facility] [address] [id number] [place] [address]- 2628 Apr, [facility] [place] [facility] [address] [id number] [place] [address]- 9001 Apr, [facility] [place] [facility] [address] [id number] [place] [address]- 3730 Mar, [facility] [place] [facility] [address] [id number], [place] [address]- 6083 Mar, [facility] [place] [facility] [address] [id number] [place] [address]- 0694 Mar, [facility] [place] [facility] [address] [id number] [place] [address]- 7484 Mar, [facility] [place] [facility] [address] [id number], [place] [address]- 7344 Feb, [facility] [place] [facility] [address] [id number], [place] [address]- 8446 Feb, [facility] [place] [facility] [address] [id number] [place] [address]- 6146 Feb, [facility] [place] [facility] [address] [id number], [place] [address]- 4268 Feb, [facility] [place] [facility] [address] [id number] [place] [address]- 0857 Jan, [facility] [place] [facility] [address] [id number] [place] [address]- 4891 15 Jan, 2014 [facility] [place] [facility] [address] [id number] [place] [address]- 1767 14 Jan, 2014 [facility] [place] [facility] [address] [id number] [place] [address]- 3572 14 Jan, 2014 [facility] [place] [facility] [address] [id number] [place] [address]- 4327 13 Jan, 2014 [facility] [place] [facility] [address] [id number] [place] [address]- 9428 Jan, [facility] [place] [facility] [address] [id number] [place] [address]- 6277 15 Dec, 2013 [facility] [place] [facility] [address] [id number] [place] [address]- 1784 Dec, [facility] [place] [facility] [address] [id number] [place] [address]- 4066 Nov, [facility] [place] [facility] [address] [id number] [place] [address]- 5001 Nov, [facility] [place] [facility] [address] [id number] [place] [address]- 7044 Nov, [facility] [place] [facility] [address] [id number] [place] [address]- 4994 Nov, [facility] [place] [facility] [address] [id number] [place] [address]- 2134 Nov, [facility] [place] [facility] [address] [id number] [place] [address]- 1788 Nov, [facility] [place] [facility] [address] [id number] [place] [address]- 4967 Nov, [facility] [place] [facility] [address] [id number] [place] [address]- 5798 Nov, [facility] [place] [facility] [address] [id number] [place] [address]- 2166 Nov, [facility] [place] [facility] [address] [id number] [place] [address]- 1580 Oct, [facility] [place] [facility] [address] [id number] [place] [address]- 9123 Oct, [facility] [place] [facility] [address] [id number] [place] [address]- 8837 Oct, [facility] [place] [facility] [address] [id number] [place] [address]- 5047 Oct, [facility] [place] [facility] [address] [id number] [place] [address]- 8067 Oct, [facility] [place] [facility] [address] [id number] [place] [address]- 2424 Oct, [facility] [place] [facility] [address] [id number] [place] [address]- 7250 Oct, [facility] [place] [facility] [address] [id number] [place] [address]- 7799 Oct, [facility] [place] [facility] [address] [id number] [place] [address]- 9882 Oct, [facility] [place] [facility] [address] [id number] [place] [address]- 2079 Oct, [facility] [place] [facility] [address] [id number] [place] [address]- 9447 Oct, [facility] [place] [facility] [address] [id number] [place] [address]- 7381 Oct, [facility] [place] [facility] [address] [id number] [place] [address]- 5472 Oct, [facility] [place] [facility] [address] [id number] [place] [address]- 2317 Oct, [facility] [place] [facility] [address] [id number] [place] [address]- 4429 Oct, [facility] [place] [facility] [address] [id number] [place] [address]- 9488 Oct, [facility] [place] [facility] [address] [id number] [place] [address]- 9094 Oct, [facility] [place] [facility] [address] [id number] [place] 8122 Oct, [facility] [place] [facility] [address] [id number] [place] [address]- 8583 Oct, [facility] [place] [facility] [address] [id number] [place] [address]- 7518 Sep, [facility] [place] [facility] [address] [id number] [place] [address]- 9776 Sep, [facility] [place] [facility] [address] [id number] [place] [address]- 5635 Sep, [facility] [place] [facility] [address] [id number] [place] [address]- 7333 Sep, [facility] [place] [facility] [address] [id number] [place] [address]- 5595 Feb, [facility] [place] [facility] [address] [id number] [place] [address]- 8980 Feb, [facility] [place] [facility] [address] [id number] [place] [address]- 4990 Dec, [facility] [place] [facility] [address] [id number] [place] [address]- 7361 Dec, [facility] [place] [facility] [address] [id number] [place] [address]- 8674 Nov, [facility] [place] [facility] [address] [id number] [place] [address]- 9648 Nov, [facility] [place] [facility] [address] [id number] [place] [address]- 0138 Nov, [facility] [place] [facility] [address] [id number] [place] [address]- 6626 Nov, [facility] [place] [facility] [address] [id number] [place] [address]- 2546 Nov, [facility] [address] [id number] [place] [address]- 9856 Nov, [facility] [place] [facility] [address] [id number] [place] [address]- 2546 Oct, [facility] [address] [id number] [place] [address]- 2786 Apr, [facility] [address] [id number] [place] [address]- 6699 August, [facility] [address] [id number] [place] [address]- 3266 August, [facility] [address] [id number] [place] [address]- 5746 August, [facility] [address] [id number] [place] [address]- 7440 Jul, [facility] [address] [id number] [place] [address]- 6781 Jun, [facility] [address] [id number] [place] [address]- 7151 Jun, [facility] [address] [id number] [place] [address]- 7859 Jun, [facility] [place] [facility] [address] [id number] [place] [address] Jun, [facility] [place] [facility] [address] [id number] [place] [address] Jun, [facility] [place] [facility] [address] [id number] [place] [address] Jun, [facility] [place] [facility] [address] [id number] [place] [address] May, [facility] [place] [facility] [address] [id number] [place] [address] 16 May, 2011 [facility] [place] [facility] [address] [id number] [place] [address] 09 May, 2011 [facility] [place] [facility] [address] [id number] [place] [address] 07 May, 2011 [facility] [place] [facility] [address] [id number] [place] [address] May, [facility] [place] [facility] [address] [id number] [place] [address] May, [facility] [place] [facility] [address] [id number] [place] [address] Apr, [facility] [place] [facility] [address] [id number] [place] [address] Mar, [facility] [place] [facility] [address] [facility] [id number] [place] [address] Mar, [facility] [place] [facility] [address] [id number] [place] [address] Feb, [facility] [place] [facility] [address] [id number] [place] [address] Jan, [facility] [place] [facility] [address] [id number] [place] [address] 31 Mar, 2009 [facility] [place] [facility] [address] [id number], [place] [address] 15 Mar, 2009 [facility] [place] [facility] [address] [id number], [place] [address] 10 Mar, 2009 [facility] [place] [facility] [address] [id number] [place] [address] 10 Mar, 2009 [facility] [place] [facility] [address] [facility] [id number] [address] 02 Mar, 2009 [facility] [place] [facility] [address] [facility] [id number] [place] [address] 16 Feb, 2009 [facility] [place] [facility] [address] [facility] [id number] [place] [address] Feb, [facility] [address] [facility] [id number], [place] [address] Nov, [facility] [address] [facility] [id number] [place] [address] May, IMMUNIZATIONS No Known Immunizations SOCIAL HISTORY Never Assessed REASON FOR VISIT Follow-up PTSD/Bipolar Disorder PLAN OF CARE Activity Details Follow Up 1 Week Reason: Follow-up VITAL SIGNS MEDICATIONS Unknown Medications RESULTS No Results PROCEDURES Procedure Date Ordered Result Body Site Psychotherapy, patient &/family, 45 minutes, established patient Nov 12, 2016 INSTRUCTIONS MEDICATIONS ADMINISTERED No Known Medications MEDICAL (GENERAL) HISTORY Type Description Date Medical History HELP syndrome Medical History bi-polar Medical History hypertension Medical History hx of seizure x1, isolated Surgical History gallbladder 10/2013 Surgical History 03/2014 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
--- OUTSIDE RECORDS SUMMARY | 2017-12-25 20:35 | XMS REPORT ---
Author Author RAYMON DURBIN Organization [facility] Address [address] [place] [address] Care Team Providers Care Senior Telecommunications Engineer Name Role Phone RAYMON DURBIN Unavailable PROBLEMS Type Condition ICD9-CM Code NIT61-NO Code Onset Dates Condition Status SNOMED Code Problem Amenorrhea N91.2 Active 93358767 Problem Mood disorder F39 Active 29389717 Problem PTSD (post-traumatic stress disorder) F43.10 Active 62132421 Problem Bipolar I disorder with depression F31.9 Active 63627763 Problem Mixed obsessional thoughts and acts F42.2 Active 53358781 Problem Obsessive-compulsive disorder, unspecified type F42.9 Active [id number] ALLERGIES No Information ENCOUNTERS Encounter Location Date Diagnosis [place] [id number] [place] [address] 81430- 1936 Sep, [facility] [id number] [place] [address] 15878- 9199 Sep, [facility] [id number] [place] [address] 84038- 3769 August, [facility] [id number] [place] [address] 49444- 7420 August, [facility] [id number] [place] [address] 59332- 4423 Jul, [facility] [id number] [place] [address] 46129- 4094 Jul, PTSD (post-traumatic stress disorder) F43.10 and Bipolar I disorder with depression F31.9 [facility] [id number] [place] [address] 49703- 7714 Jul, Pelvic pain R10.2 ; Amenorrhea N91.2 and BMI 50.0-59.9, adult Z68.43 [facility] [address] [place] [address] 33550- 5304 26 Jun, 2017 BMI 50.0-59.9, adult Z68.43 ; Bipolar I disorder with depression F31.9 ; PTSD (post-traumatic stress disorder) F43.10 and Mixed obsessional thoughts and acts F42.2 [facility] [id number] [place] [address] 04867 -4163 15 Jun, 2017 Other viral agents as the cause of diseases classified elsewhere B97.89 ; Other specified respiratory disorders J98.8 ; Bronchitis J40 and Cough R05 [facility] [address] 55577- 0075 Jun, PTSD (post-traumatic stress disorder) F43.10 [facility] [id number] [place] [address] 44516- 7998 Jun, PTSD (post-traumatic stress disorder) F43.10 and Bipolar I disorder with depression F31.9 [facility] [id number] [place] [address] 70633- 5905 13 May, 2017 PTSD (post-traumatic stress disorder) F43.10 and Bipolar I disorder with depression F31.9 [facility] [id number] [place] [address] 65435- 3303 12 May, 2017 [facility] [id number] [place] [address] 70976- 2556 07 May, 2017 PTSD (post-traumatic stress disorder) F43.10 and Bipolar I disorder with depression F31.9 [facility] [id number] [place] [address] 69988- 2753 Apr, PTSD (post-traumatic stress disorder) F43.10 and Bipolar I disorder with depression F31.9 [facility] [id number] [place] [address] 25484- 5210 Apr, PTSD (post-traumatic stress disorder) F43.10 and Bipolar I disorder with depression F31.9 [facility] [id number] [address]- 1356 Mar, PTSD (post-traumatic stress disorder) F43.10 ; Obsessive- compulsive disorder, unspecified type F42.9 ; Bipolar I disorder with depression F31.9 and Other terminal manager (current) drug therapy Z79.899 [facility] [id number] [address]- 5006 Mar, PTSD (post-traumatic stress disorder) F43.10 and Bipolar I disorder with depression F31.9 [facility] [id number] [place] [address] 65626- 3716 Feb, PTSD (post-traumatic stress disorder) F43.10 and Bipolar I disorder with depression F31.9 [facility] [id number] [place] [address] 75904- 9776 Feb, PTSD (post-traumatic stress disorder) F43.10 and Bipolar I disorder with depression F31.9 [facility] [id number] [address] Jan, Strep pharyngitis J02.0 [facility] [id number] [place] [address] 28306 2546 Jan, [facility] [id number] [address] 2546 Jan, [facility] [id number] [place] [address] 51485 2546 Jan, PTSD (post-traumatic stress disorder) F43.10 and Bipolar I disorder with depression F31.9 [facility] [id number] [place] [address] 29701- 4396 Jan, PTSD (post-traumatic stress disorder) F43.10 and Bipolar I disorder with depression F31.9 [facility] [id number] [address]- 2546 Jan, Other terminal manager (current) drug therapy Z79.899 [facility] [address] [address]- 3151 02 Jan, 2017 PTSD (post-traumatic stress disorder) F43.10 ; Obsessive- compulsive disorder, unspecified type F42.9 ; Bipolar I disorder with depression F31.9 and Other terminal manager (current) drug therapy Z79.899 [facility] [address] [address]- 7618 27 Dec, 2016 Encounter for IUD removal Z30.432 and control counseling Z30.09 [facility] [id number] [place] [address] 55661- 6267 25 Dec, 2016 PTSD (post-traumatic stress disorder) F43.10 ; Obsessive- compulsive disorder, unspecified type F42.9 and Bipolar I disorder with depression F31.9 [facility] [id number] [place] [address] 81444- 0256 Dec, PTSD (post-traumatic stress disorder) F43.10 and Bipolar I disorder with depression F31.9 [facility] [id number] [place] [address] 33270- 3862 12 Dec, 2016 PTSD (post-traumatic stress disorder) F43.10 and Bipolar I disorder with depression F31.9 [facility] [address] [place] [address] 27457- 6354 11 Dec, 2016 Mood disorder F39 [facility] [id number] [place] [address] 87289- 2393 08 Dec, 2016 PTSD (post-traumatic stress disorder) F43.10 ; Mood disorder F39 and Obsessive-compulsive disorder, unspecified type F42.9 [facility] [id number] [place] [address] 15239- 1058 07 Dec, 2016 PTSD (post-traumatic stress disorder) F43.10 and Bipolar I disorder with depression F31.9 [facility] [address] [address] 05 Dec, 2016 Adverse drug reaction, initial encounter T88.7XXA [facility] [address] [address]- 5304 Dec, [facility] [id number] [place] [address] 77265- 9072 Nov, PTSD (post-traumatic stress disorder) F43.10 and Bipolar I disorder with depression F31.9 [facility] [address] [place] [address] 85962- 3160 Nov, PTSD (post-traumatic stress disorder) F43.10 ; Mood disorder F39 and Obsessive-compulsive disorder, unspecified type F42.9 [facility] [address] [place] [address] 40115- 9787 Nov, PTSD (post-traumatic stress disorder) F43.10 and Bipolar I disorder with depression F31.9 [facility] [id number] [place] [address] 49167- 7744 Nov, PTSD (post-traumatic stress disorder) F43.10 and Bipolar I disorder with depression F31.9 [facility] [address] [address] Nov, [facility] [address] [place] [address] 62106- 3518 Nov, PTSD (post-traumatic stress disorder) F43.10 and Bipolar I disorder with depression F31.9 [facility] [address] [place] [address] 62252- 2071 Nov, PTSD (post-traumatic stress disorder) F43.10 and Bipolar I disorder with depression F31.9 [facility] [address] [place] [address] 89451- 5712 Oct, [facility] [id number] [place] [address] 79934- 3732 Oct, PTSD (post-traumatic stress disorder) F43.10 ; Mood disorder F39 and Obsessive-compulsive disorder, unspecified type F42.9 [facility] [id number] [address]- 1359 Oct, PTSD (post-traumatic stress disorder) F43.10 and Bipolar I disorder with depression F31.9 [facility] [address] [address]- 1632 Oct, PTSD (post-traumatic stress disorder) F43.10 and Bipolar I disorder with depression F31.9 [facility] [address] [address]- 0912 Oct, PTSD (post-traumatic stress disorder) F43.10 ; Mood disorder F39 and Obsessive-compulsive disorder, unspecified type F42.9 [facility] [id number] [address]- 2533 Oct, [place] [id number] [address]- 4908 Oct, PTSD (post-traumatic stress disorder) F43.10 and Bipolar I disorder with depression F31.9 [facility] [address] [address]- 4144 Oct, PTSD (post-traumatic stress disorder) F43.10 ; Mood disorder F39 and Obsessive-compulsive disorder, unspecified type F42.9 [facility] [id number] [address]- 0066 Sep, PTSD (post-traumatic stress disorder) F43.10 and Bipolar I disorder with depression F31.9 [facility] [id number] [address]- 1670 Sep, PTSD (post-traumatic stress disorder) F43.10 ; Mood disorder F39 and Obsessive-compulsive disorder, unspecified type F42.9 [facility] [id number] [address]- 5403 Sep, PTSD (post-traumatic stress disorder) F43.10 and Bipolar I disorder with depression F31.9 [facility] [address] [place] [address] 66195- 8934 Sep, PTSD (post-traumatic stress disorder) F43.10 and Bipolar I disorder with depression F31.9 [facility] [address] [place] [address] 78741- 9130 August, PTSD (post-traumatic stress disorder) F43.10 and Bipolar I disorder with depression F31.9 [facility] [address] [place] [address] 59970 -2863 August, Pharyngitis due to other organism J02.8 [facility] [address] [place] [address] 51019- 0628 August, PTSD (post-traumatic stress disorder) F43.10 ; Bipolar 1 disorder, mixed F31.60 and Other terminal manager (current) drug therapy Z79.899 [facility] [address] [place] [address] 80490- 7570 August, PTSD (post-traumatic stress disorder) F43.10 and Bipolar I disorder with depression F31.9 [facility] [address] [place] [address] 16681- 2438 Jul, PTSD (post-traumatic stress disorder) F43.10 and Bipolar I disorder with depression F31.9 [facility] [address] [address]- 9425 Jul, PTSD (post-traumatic stress disorder) F43.10 and Bipolar I disorder with depression F31.9 [facility] [address] [address]- 3881 Jul, PTSD (post-traumatic stress disorder) F43.10 and Bipolar I disorder with depression F31.9 [facility] [address] [place] [address] 28920- 6626 Jul, Other terminal manager (current) drug therapy Z79.899 [facility] [address] [address]- 2355 Jun, PTSD (post-traumatic stress disorder) F43.10 and Bipolar I disorder with depression F31.9 [place] [id number] [place] [address] 26663- 0253 Jun, Bipolar 1 disorder, mixed F31.60 ; PTSD (post-traumatic stress disorder) F43.10 and Other skilled nursing (current) drug therapy Z79.899 [place] [address] 01729- 7708 Jun, PTSD (post-traumatic stress disorder) F43.10 and Depression , unspecified depression type F32.9 [place] [address] 50014- 0356 Jun, PTSD (post-traumatic stress disorder) F43.10 and Depression , unspecified depression type F32.9 [place] [address] 76738- 1334 Jun, PTSD (post-traumatic stress disorder) F43.10 and Depression , unspecified depression type F32.9 [facility] [address] 74523 -9539 May, Fever, unspecified fever cause R50.9 and Gastroenteritis K52.9 [place] [id number] [place] [address] 59265- 8664 Mar, Sprain of other ligament of right ankle, subsequent encounter S93.491D [place] [id number] [place] [address] 25756- 5143 Mar, [facility] [id number] [place] [address] 00356 -4087 Feb, Scabies infestation B86 [place] [address] 87609- 4797 Feb, Dental caries K02.9 [place] [id number] [place] [address] 44258- 0894 Jan, [facility] [address] [address] Jan, Pharyngitis, unspecified etiology J02.9 [facility] [id number] [place] [address] 00605- 8156 Jan, [facility] [id number] [place] [address] 29828- 9357 Jan, Bipolar affective disorder, remission status unspecified F31.9 [facility] [id number] [place] [address] 37625- 8111 Jan, Encounter for dental examination and cleaning without abnormal findings Z01.20 [place] [id number] [place] [address] 99915- 0925 Jan, Bipolar affective disorder, remission status unspecified F31.9 [place] [id number] [place] [address] 83851- 4279 Dec, Bipolar affective disorder, remission status unspecified F31.9 and Depression, unspecified depression type F32.9 [place] [id number] [place] [address] 63246- 2364 Dec, Unspecified mood [affective] disorder F39 and Generalized anxiety disorder F41.1 [facility] [id number] [place] [address] 93598- 5245 08 Dec, 2015 Depression, unspecified depression type F32.9 [place] [id number] [place] [address] 25296- 8610 Nov, Dental caries K02.9 [place] [address] [place] [address] 97357- 3463 Nov, Dental examination Z01.20 [facility] [id number] [place] [address] 15881- 7661 Sep, Bipolar affective disorder, remission status unspecified F31.9 [facility] [address] [place] [address] 56801- 9871 August, Tension headache G44.209 [facility] [id number] [address] Jul, [facility] [id number] [place] [address] 79768 -9295 Jul, Upper respiratory infection J06.9 and Gastroenteritis K52.9 [facility] [id number] [place] [address] 45364- 9253 Jun, Bronchitis J40 [facility] [id number] [place] [address] 00337 -6483 Feb, Thoracic back pain M54.6 and Left shoulder pain M25.512 [facility] [id number] [place] [address] 61711- 6619 Feb, [facility] [id number] [place] [address] 99667- 9785 Jul, [facility] [id number] [place] [address] 33203- 0751 Jul, [facility] [id number] [place] [address] 05080- 6698 Apr, [facility] [id number] [place] [address] 36631- 5875 Apr, [facility] [id number] [place] [address] 61605- 8404 Apr, [facility] [id number] [place] [address] 92755- 9455 Apr, [facility] [id number] [place] [address] 54767- 9769 Mar, [facility] [id number] [place] [address] 79539- 9779 Mar, [facility] [id number] [place] [address] 99642- 3065 Mar, [facility] [id number] [place] [address]- 0222 Mar, [facility] [place] [facility] [address] [id number] [place] [address]- 3459 Feb, [facility] [place] [facility] [address] [id number] [place] [address]- 0039 Feb, [facility] [place] [facility] [address] [id number] [place] [address]- 7134 Feb, [facility] [place] [facility] [address] [id number] [place] [address]- 7767 Feb, [facility] [place] [facility] [address] [id number] [place] [address]- 2317 Jan, [facility] [place] [facility] [address] [id number] [place] [address]- 5833 15 Jan, 2014 [facility] [place] [facility] [address] [id number] [place] [address]- 3945 14 Jan, 2014 [facility] [place] [facility] [address] [id number] [place] [address]- 5932 14 Jan, 2014 [facility] [place] [facility] [address] [id number] [place] [address]- 5077 Jan, [facility] [place] [facility] [address] [id number] [place] [address]- 9112 Jan, [facility] [place] [facility] [address] [id number] [place] [address]- 9688 Dec, [facility] [place] [facility] [address] [id number] [place] [address]- 6776 Dec, [facility] [place] [facility] [address] [id number] [place] [address]- 0264 Nov, [facility] [place] [facility] [address] [id number] [place] [address]- 3992 Nov, [facility] [place] [facility] [address] [id number] [place] [address]- 2099 Nov, [facility] [place] [facility] [address] [id number] [place] [address]- 0858 Nov, [facility] [place] [facility] [address] [id number] [place] [address]- 2529 Nov, [facility] [place] [facility] [address] [id number] [place] [address]- 2295 Nov, [facility] [place] [facility] [address] [id number] [place] [address]- 3244 Nov, [facility] [place] [facility] [address] [id number] [place] [address]- 4439 Nov, [facility] [place] [facility] [address] [id number] [place] [address]- 0966 Nov, [facility] [place] [facility] [address] [id number] [place] [address]- 6840 Oct, [facility] [place] [facility] [address] [id number] [place] [address]- 1787 Oct, [facility] [place] [facility] [address] [id number] [place] [address]- 2907 Oct, [facility] [place] [facility] [address] [id number] [place] [address]- 8485 Oct, [facility] [place] [facility] [address] [id number] [place] [address]- 0900 Oct, [facility] [place] [facility] [address] [id number] [place] [address]- 3752 Oct, [facility] [place] [facility] [address] [id number] [place] [address]- 4519 Oct, [facility] [place] [facility] [address] [id number] [place] [address]- 2887 Oct, [facility] [place] [facility] [address] [id number] [place] [address]- 2021 Oct, [facility] [place] [facility] [address] [id number] [place] [address]- 8350 Oct, 2013 [facility] [place] [facility] [address] [id number] [place] [address]- 8592 Oct, 2013 [facility] [place] [facility] [address] [id number] [place] [address]- 0397 Oct, [facility] [place] [facility] [address] [id number] [place] [address]- 2802 Oct, 2013 [facility] [place] [facility] [address] [id number] [place] [address]- 0695 Oct, 2013 [facility] [place] [facility] [address] [id number] [place] [address]- 8089 Oct, [facility] [place] [facility] [address] [id number] [place] [address]- 0974 Oct, [facility] [place] [facility] [address] [id number] [place] [address]- 5669 Oct, [facility] [place] [facility] [address] [id number] [place] [address] Oct, [facility] [place] [facility] [address] [id number] [place] [address] Oct, [facility] [place] [facility] [address] [id number] [place] [address] Sep, [facility] [place] [facility] [address] [id number] [place] [address] Sep, [facility] [place] [facility] [address] [id number] [place] [address] Sep, [facility] [place] [facility] [address] [id number] [place] [address] Sep, [facility] [place] [facility] [address] [id number] [place] [address] Feb, [facility] [place] [facility] [address] [id number] [place] [address] Feb, [facility] [place] [facility] [address] [id number] [place] [address] Dec, [facility] [address] [id number] [place] [address] Dec, [facility] [address] [id number] [place] [address] Nov, [facility] [address] [id number] [place] [address] Nov, [facility] [address] [id number] [place] [address] Nov, [facility] [address] [id number] [place] [address] Nov, [facility] [address] [id number] [place] [address] Nov, [facility] [address] [id number] [place] [address] Nov, [facility] [address] [id number] [place] [address] Oct, [facility] [address] [id number] [place] [address] Apr, [facility] [address] [id number] [place] [address] August, [facility] [address] [id number] [place] [address] August, [facility] [address] [id number] [place] [address] August, [facility] [address] [id number] [place] [address] Jul, [facility] [address] [id number] [place] [address] Jun, [facility] [address] [id number] [place] [address] Jun, [facility] [address] [address] [id number] [place] [address] 14 Jun, 2011 [facility] [place] [facility] [address] [id number] [place] [address] 14 Jun, 2011 [facility] [place] [facility] [address] [id number] [place] [address] Jun, [facility] [place] [facility] [address] [id number] [place] [address] Jun, [facility] [place] [facility] [address] [id number] [place] [address] May, [facility] [place] [facility] [address] [id number] [place] [address] 16 May, 2011 [facility] [place] [facility] [address] [id number] [place] [address] May, [facility] [place] [facility] [address] [id number] [place] [address] May, [facility] [place] [facility] [address] [id number] [place] [address] May, [facility] [place] [facility] [address] [facility] [id number] [place] [address] 06 May, 2011 [facility] [place] [facility] [address] [facility] [id number] [place] [address] Apr, [facility] [place] [facility] [address] [id number] [address] Mar, [facility] [place] [facility] [address] [id number] [place] [address] Mar, [facility] [place] [facility] [address] [facility] [id number] [place] [address] Feb, [facility] [place] [facility] [address] [facility] [id number] [place] [address] Jan, [facility] [place] [facility] [id number] [address] 31 Mar, 2009 [facility] [id number] [address] 15 Mar, 2009 [facility] [id number] [address] Mar, [facility] [id number] [address] Mar, [facility] [id number] [address] Mar, [facility] [id number] [place] [address] Feb, [facility] [id number] [address] Feb, [facility] [id number] [address] Nov, [facility] [id number] [address] May, IMMUNIZATIONS No Known Immunizations SOCIAL HISTORY Never Assessed REASON FOR VISIT BH Follow-up PTSD/Bipolar Disorder PLAN OF CARE Activity Details Follow Up prn Reason: VITAL SIGNS MEDICATIONS Unknown Medications RESULTS No Results PROCEDURES Procedure Date Ordered Result Body Site Psychotherapy, patient &/family, 45 minutes, established patient Dec 19, 2016 INSTRUCTIONS MEDICATIONS ADMINISTERED No Known Medications MEDICAL (GENERAL) HISTORY Type Description Date Medical History HELP syndrome Medical History bi-polar Medical History hypertension Medical History hx of seizure x1, isolated Surgical History gallbladder 10/2013 Surgical History 03/2014 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
--- OUTSIDE RECORDS SUMMARY | 2017-12-25 20:36 | XMS REPORT ---
Author Author [facility] Address [address] [place] [address] Care Team Providers Care Search Developer Name Role Phone [facility] [place] Unavailable PROBLEMS Type Condition ICD9-CM Code [id number] Code Onset Dates Condition Status SNOMED Code Problem Amenorrhea N91.2 Active 62880367 Problem Mood disorder F39 Active 63789455 Problem PTSD (post-traumatic stress disorder) F43.10 Active 90337313 Problem Bipolar I disorder with depression F31.9 Active 48019099 Problem Mixed obsessional thoughts and acts F42.2 Active 72932451 Problem Obsessive-compulsive disorder, unspecified type F42.9 Active [id number] ALLERGIES No Information ENCOUNTERS Encounter Location Date Diagnosis [facility] [id number] [place] [address] 37496- 2364 Sep, [facility] [address] 80319- 9802 Sep, [facility] [id number] [place] [address] 89099- 7787 August, [facility] [id number] [place] [address] 63372- 2413 August, [facility] [address] 70661- 0667 Jul, [facility] [address] 99181- 0513 Jul, PTSD (post-traumatic stress disorder) F43.10 and Bipolar I disorder with depression F31.9 [facility] [id number] [place] [address] 07691- 0527 Jul, Pelvic pain R10.2 ; Amenorrhea N91.2 and BMI 50.0-59.9, adult Z68.43 [facility] [id number] [place] [address] 69503- 4918 26 Jun, 2017 BMI 50.0-59.9, adult Z68.43 ; Bipolar I disorder with depression F31.9 ; PTSD (post-traumatic stress disorder) F43.10 and Mixed obsessional thoughts and acts F42.2 [facility] [id number] [place] [address] 27004 -5108 15 Jun, 2017 Other viral agents as the cause of diseases classified elsewhere B97.89 ; Other specified respiratory disorders J98.8 ; Bronchitis J40 and Cough R05 [facility] [id number] [place] [address] 75164- 7938 Jun, PTSD (post-traumatic stress disorder) F43.10 [facility] [id number] [place] [address] 53686- 4354 Jun, PTSD (post-traumatic stress disorder) F43.10 and Bipolar I disorder with depression F31.9 [facility] [id number] [place] [address] 40123- 1987 13 May, 2017 PTSD (post-traumatic stress disorder) F43.10 and Bipolar I disorder with depression F31.9 [facility] [id number] [place] [address] 43764- 1296 12 May, 2017 [facility] [id number] [place] [address] 73796- 4841 07 May, 2017 PTSD (post-traumatic stress disorder) F43.10 and Bipolar I disorder with depression F31.9 [facility] [id number] [place] [address] 01530- 7783 Apr, PTSD (post-traumatic stress disorder) F43.10 and Bipolar I disorder with depression F31.9 [facility] [id number] [place] [address] 40488- 7364 Apr, PTSD (post-traumatic stress disorder) F43.10 and Bipolar I disorder with depression F31.9 [facility] [address] [address]- 0296 Mar, PTSD (post-traumatic stress disorder) F43.10 ; Obsessive- compulsive disorder, unspecified type F42.9 ; Bipolar I disorder with depression F31.9 and Other termite helper (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) drug 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 Z79.899 [facility] [id number] [place] [address] 76948- 3286 Mar, PTSD (post-traumatic stress disorder) F43.10 and Bipolar I disorder with depression F31.9 [facility] [id number] [place] [address] 69584- 4856 Feb, PTSD (post-traumatic stress disorder) F43.10 and Bipolar I disorder with depression F31.9 [facility] [address] [address]- 5176 Feb, PTSD (post-traumatic stress disorder) F43.10 and Bipolar I disorder with depression F31.9 [facility] [address] [address] Jan, Strep pharyngitis J02.0 [facility] [id number] [place] [address] 47595- 0686 Jan, [facility] [address] [address]- 8266 Jan, [facility] [id number] [place] [address] 45541- 2546 Jan, PTSD (post-traumatic stress disorder) F43.10 and Bipolar I disorder with depression F31.9 [facility] [id number] [place] [address] 43179- 2706 Jan, PTSD (post-traumatic stress disorder) F43.10 and Bipolar I disorder with depression F31.9 [facility] [id number] [address]- 1576 Jan, Other termite helper (current) drug therapy Z79.899 [facility] [id number] [place] [address] 08685- 2811 02 Jan, 2017 PTSD (post-traumatic stress disorder) F43.10 ; Obsessive- compulsive disorder, unspecified type F42.9 ; Bipolar I disorder with depression F31.9 and Other termite helper (current) drug therapy Z79.899 [facility] [id number] [place] [address] 33305- 1968 27 Dec, 2016 Encounter for IUD removal Z30.432 and control counseling Z30.09 [facility] [id number] [place] [address] 31373- 7399 Dec, PTSD (post-traumatic stress disorder) F43.10 ; Obsessive- compulsive disorder, unspecified type F42.9 and Bipolar I disorder with depression F31.9 [facility] [id number] [place] [address] 14554- 5805 Dec, PTSD (post-traumatic stress disorder) F43.10 and Bipolar I disorder with depression F31.9 [facility] [id number] [place] [address] 56075- 0964 12 Dec, 2016 PTSD (post-traumatic stress disorder) F43.10 and Bipolar I disorder with depression F31.9 [facility] [id number] [place] [address] 20860- 9310 11 Dec, 2016 Mood disorder F39 [facility] [id number] [place] [address] 96508- 5673 08 Dec, 2016 PTSD (post-traumatic stress disorder) F43.10 ; Mood disorder F39 and Obsessive-compulsive disorder, unspecified type F42.9 [facility] [id number] [place] [address] 08664- 3556 07 Dec, 2016 PTSD (post-traumatic stress disorder) F43.10 and Bipolar I disorder with depression F31.9 [facility] [id number] [place] [address] 08262 -4748 05 Dec, 2016 Adverse drug reaction, initial encounter T88.7XXA [facility] [address] [address]- 2153 Dec, [facility] [id number] [place] [address] 13006- 6549 Nov, PTSD (post-traumatic stress disorder) F43.10 and Bipolar I disorder with depression F31.9 [facility] [id number] [place] [address] 50200- 3549 Nov, PTSD (post-traumatic stress disorder) F43.10 ; Mood disorder F39 and Obsessive-compulsive disorder, unspecified type F42.9 [facility] [id number] [place] [address] 21135- 6864 Nov, PTSD (post-traumatic stress disorder) F43.10 and Bipolar I disorder with depression F31.9 [facility] [id number] [place] [address] 82268- 5810 Nov, PTSD (post-traumatic stress disorder) F43.10 and Bipolar I disorder with depression F31.9 [facility] [id number] [place] [address] 67203 -5994 Nov, [facility] [id number] [place] [address] 90231- 2030 Nov, PTSD (post-traumatic stress disorder) F43.10 and Bipolar I disorder with depression F31.9 [facility] [id number] [place] [address] 36911- 2506 Nov, PTSD (post-traumatic stress disorder) F43.10 and Bipolar I disorder with depression F31.9 [facility] [id number] [place] [address] 03776- 1671 Oct, [facility] [id number] [place] [address] 52496- 9243 Oct, PTSD (post-traumatic stress disorder) F43.10 ; Mood disorder F39 and Obsessive-compulsive disorder, unspecified type F42.9 [facility] [address] [facility] [id number] [address] 2546 Oct, PTSD (post-traumatic stress disorder) F43.10 and Bipolar I disorder with depression F31.9 [facility] [address] [facility] [id number] [address] 2546 Oct, PTSD (post-traumatic stress disorder) F43.10 and Bipolar I disorder with depression F31.9 [facility] [id number] [address]- 7386 Oct, PTSD (post-traumatic stress disorder) F43.10 ; Mood disorder F39 and Obsessive-compulsive disorder, unspecified type F42.9 [facility] [id number] [address]- 2566 Oct, [facility] [id number] [address]- 0636 Oct, PTSD (post-traumatic stress disorder) F43.10 and Bipolar I disorder with depression F31.9 [facility] [id number] [address]- 7826 Oct, PTSD (post-traumatic stress disorder) F43.10 ; Mood disorder F39 and Obsessive-compulsive disorder, unspecified type F42.9 [facility] [id number] [address]- 9395 Sep, PTSD (post-traumatic stress disorder) F43.10 and Bipolar I disorder with depression F31.9 [facility] [address] [facility] [id number] [address] 2546 Sep, PTSD (post-traumatic stress disorder) F43.10 ; Mood disorder F39 and Obsessive-compulsive disorder, unspecified type F42.9 [facility] [id number] [address] 8741 Sep, PTSD (post-traumatic stress disorder) F43.10 and Bipolar I disorder with depression F31.9 [facility] [address] [address]- 4307 Sep, PTSD (post-traumatic stress disorder) F43.10 and Bipolar I disorder with depression F31.9 [facility] [id number] [place] [address] 26644- 3010 August, PTSD (post-traumatic stress disorder) F43.10 and Bipolar I disorder with depression F31.9 [facility] [id number] [place] [address] 98506 -4098 August, Pharyngitis due to other organism J02.8 [facility] [id number] [place] [address] 93548- 6776 August, PTSD (post-traumatic stress disorder) F43.10 ; Bipolar 1 disorder, mixed F31.60 and Other penitentiary (current) drug therapy Z79.899 [facility] [id number] [place] [address] 75338- 4057 August, PTSD (post-traumatic stress disorder) F43.10 and Bipolar I disorder with depression F31.9 [facility] [id number] [place] [address] 37745- 5442 Jul, PTSD (post-traumatic stress disorder) F43.10 and Bipolar I disorder with depression F31.9 [facility] [address] [address]- 3785 Jul, PTSD (post-traumatic stress disorder) F43.10 and Bipolar I disorder with depression F31.9 [facility] [id number] [place] [address] 38585- 6521 Jul, PTSD (post-traumatic stress disorder) F43.10 and Bipolar I disorder with depression F31.9 [facility] [id number] [place] [address] 71322- 1932 Jul, Other penitentiary (current) drug therapy Z79.899 [facility] [id number] [place] [address] 70870- 2435 Jun, PTSD (post-traumatic stress disorder) F43.10 and Bipolar I disorder with depression F31.9 [place] [facility] [address] 00028- 4520 Jun, Bipolar 1 disorder, mixed F31.60 ; PTSD (post-traumatic stress disorder) F43.10 and Other penitentiary (current) drug therapy Z79.899 [place] [address] 77507- 1665 Jun, PTSD (post-traumatic stress disorder) F43.10 and Depression , unspecified depression type F32.9 [facility] [address] 77336- 8649 Jun, PTSD (post-traumatic stress disorder) F43.10 and Depression , unspecified depression type F32.9 [place] [address] 03689- 8525 Jun, PTSD (post-traumatic stress disorder) F43.10 and Depression , unspecified depression type F32.9 [facility] [address] 43363 -4206 May, Fever, unspecified fever cause R50.9 and Gastroenteritis K52.9 [place] [facility] [address] 10400- 3371 Mar, Sprain of other ligament of right ankle, subsequent encounter S93.491D [place] [facility] [address] 19895- 4018 Mar, [facility] [address] 91886 -5494 Feb, Scabies infestation B86 [place] [address] 95581- 9927 08 Feb, 2016 Dental caries K02.9 [place] [facility] [address] 04589- 3306 Jan, [facility] [address] [address] -1891 Jan, Pharyngitis, unspecified etiology J02.9 [facility] [id number] [place] [address] 92915- 5437 Jan, [facility] [id number] [place] [address] 47170- 7894 Jan, Bipolar affective disorder, remission status unspecified F31.9 [facility] [id number] [place] [address] 64039- 7506 Jan, Encounter for dental examination and cleaning without abnormal findings Z01.20 [facility] [id number] [place] [address] 66131- 1765 Jan, Bipolar affective disorder, remission status unspecified F31.9 [facility] [id number] [place] [address] 50355- 5060 Dec, Bipolar affective disorder, remission status unspecified F31.9 and Depression, unspecified depression type F32.9 [facility] [id number] [place] [address] 05142- 6326 Dec, Unspecified mood [affective] disorder F39 and Generalized anxiety disorder F41.1 [facility] [address] [place] [address] 83291- 6379 08 Dec, 2015 Depression, unspecified depression type F32.9 [place] [id number] [place] [address] 45771- 0626 Nov, Dental caries K02.9 [facility] [id number] [place] [address] 69795- 1218 Nov, Dental examination Z01.20 [facility] [id number] [place] [address] 58880- 9867 Sep, Bipolar affective disorder, remission status unspecified F31.9 [facility] [id number] [place] [address] 86634- 8775 August, Tension headache G44.209 [facility] [id number] [place] [address] 47518 -1970 Jul, [facility] [id number] [place] [address] 86895 -3334 Jul, Upper respiratory infection J06.9 and Gastroenteritis K52.9 [facility] [id number] [place] [address] 28930- 3297 Jun, Bronchitis J40 [facility] [id number] [place] [address] 60526 -8175 Feb, Thoracic back pain M54.6 and Left shoulder pain M25.512 [facility] [id number] [place] [address] 34239- 1048 Feb, [facility] [id number] [place] [address] 58520- 3973 Jul, [facility] [id number] [place] [address] 35041- 0156 Jul, [facility] [id number] [place] [address] 79750- 2235 Apr, [facility] [id number] [place] [address] 69937- 1438 Apr, [facility] [id number] [place] [address] 10194- 7332 Apr, [facility] [id number] [place] [address] 48312- 1497 Apr, [facility] [id number] [place] [address] 29589- 2818 Mar, [facility] [id number] [place] [address] 14025- 7548 Mar, [facility] [id number] [place] [address] 40025- 6889 Mar, [facility] [address] [place] [address]- 8307 Mar, [facility] [place] [facility] [address] [id number] [place] [address]- 4583 Feb, [facility] [place] [facility] [address] [id number] [place] 7874 Feb, [facility] [place] [facility] [address] [id number] [place] [address]- 2511 Feb, [facility] [place] [facility] [address] [id number] [place] [address]- 5679 Feb, [facility] [place] [facility] [address] [id number] [place] [address]- 8001 Jan, [facility] [place] [facility] [address] [id number] [place] [address]- 8753 Jan, [facility] [place] [facility] [address] [id number] [place] [address]- 9755 Jan, [facility] [place] [facility] [address] [id number] [place] [address]- 5112 14 Jan, 2014 [facility] [place] [facility] [address] [id number] [place] [address]- 9850 Jan, [facility] [place] [facility] [address] [id number] [place] [address]- 2658 Jan, [facility] [place] [facility] [address] [id number] [place] [address]- 1570 Dec, [facility] [place] [facility] [address] [id number] [place] [address]- 1719 Dec, [facility] [place] [facility] [address] [id number] [place] 7415 Nov, [facility] [place] [facility] [address] [id number] [place] [address]- 6636 Nov, [facility] [place] [facility] [address] [id number] [place] [address]- 4843 Nov, [facility] [place] [facility] [address] [id number] [place] [address]- 8932 Nov, [facility] [place] [facility] [address] [id number] [place] [address]- 0534 Nov, [facility] [place] [facility] [address] [id number] [place] [address]- 2321 Nov, [facility] [place] [facility] [address] [id number] [place] [address]- 0364 Nov, [facility] [place] [facility] [address] [id number] [place] [address]- 1922 Nov, [facility] [place] [facility] [address] [id number] [place] [address]- 5101 Nov, [facility] [place] [facility] [address] [id number] [place] [address]- 7189 Oct, [facility] [place] [facility] [address] [id number] [place] [address]- 8799 Oct, [facility] [place] [facility] [address] [id number] [place] [address]- 8502 Oct, [facility] [place] [facility] [address] [id number] [place] [address]- 5922 Oct, [facility] [place] [facility] [address] [id number] [place] [address]- 3608 Oct, [facility] [place] [facility] [address] [id number] [place] [address]- 2417 Oct, [facility] [place] [facility] [address] [id number] [place] [address]- 3191 Oct, [facility] [place] [facility] [address] [id number] [place] [address]- 2391 Oct, [facility] [place] [facility] [address] [id number] [place] [address]- 9899 Oct, [facility] [place] [facility] [address] [id number] [place] [address]- 0462 Oct, 2013 [facility] [place] [facility] [address] [id number] [place] [address]- 2092 Oct, 2013 [facility] [place] [facility] [address] [id number] [place] [address]- 1116 Oct, 2013 [facility] [place] [facility] [address] [id number] [place] [address]- 6986 Oct, 2013 [facility] [place] [facility] [address] [id number] [place] [address]- 9439 Oct, 2013 [facility] [place] [facility] [address] [id number] [place] [address]- 9714 Oct, [facility] [place] [facility] [address] [id number] [place] [address]- 4499 Oct, [facility] [place] [facility] [address] [id number] [place] [address]- 7647 Oct, [facility] [place] [facility] [address] [id number] [place] [address]- 3975 Oct, [facility] [place] [facility] [address] [id number] [place] [address]- 6049 Oct, [facility] [place] [facility] [address] [id number] [place] [address]- 3143 Sep, [facility] [place] [facility] [address] [id number] [place] [address]- 9823 Sep, [facility] [place] [facility] [address] [id number] [place] [address]- 9432 Sep, [facility] [place] [facility] [address] [id number] [place] [address]- 5659 Sep, [facility] [place] [facility] [address] [id number] [place] [address]- 8936 Feb, [facility] [place] [facility] [address] [id number] [place] [address]- 0693 Feb, [facility] [place] [facility] [address] [id number] [place] [address]- 0780 Dec, [facility] [place] [facility] [address] [id number] [place] [address]- 0560 Dec, [facility] [place] [facility] [address] [id number] [place] [address]- 4803 Nov, [facility] [place] [facility] [address] [id number] [place] [address]- 9149 Nov, [facility] [place] [facility] [address] [id number] [place] [address] Nov, [facility] [place] [facility] [address] [id number] [place] [address] Nov, [facility] [place] [facility] [address] [id number] [place] [address] Nov, [facility] [place] [facility] [address] [id number] [place] [address] Nov, [facility] [place] [facility] [address] [id number] [place] [address] Oct, [facility] [place] [facility] [address] [id number] [place] [address] Apr, [facility] [place] [facility] [address] [id number] [place] [address] August, [facility] [place] [facility] [address] [id number] [place] [address] August, [facility] [place] [facility] [address] [id number] [place] [address] August, [facility] [place] [facility] [address] [id number] [place] [address] Jul, [facility] [place] [facility] [address] [id number] [place] [address] Jun, [facility] [place] [facility] [address] [id number] [place] [address] Jun, [facility] [place] [facility] [address] [id number] [place] [address] 14 Jun, 2011 [facility] [place] [facility] [address] [id number] [place] [address] 14 Jun, 2011 [facility] [place] [facility] [address] [id number] [place] [address] Jun, [facility] [place] [facility] [address] [id number] [place] [address] Jun, [facility] [place] [facility] [address] [id number] [place] [address] May, [facility] [place] [facility] [address] [id number] [place] [address] 16 May, 2011 [facility] [place] [facility] [address] [id number] [place] [address] May, [facility] [place] [facility] [address] [id number] [place] [address] May, [facility] [place] [facility] [address] [id number] [place] [address] May, [facility] [place] [facility] [address] [id number] [place] [address] 06 May, 2011 [facility] [place] [facility] [address] [id number] [place] [address] Apr, [facility] [place] [facility] [address] [id number] [place] [address] Mar, [facility] [place] [facility] [address] [id number] [place] [address] Mar, [facility] [place] [facility] [address] [id number] [place] [address] Feb, [facility] [place] [facility] [address] [facility] [id number] [place] [address] Jan, [facility] [place] [facility] [id number] [address] Mar, [facility] [id number] [address] Mar, [facility] [id number] [address] Mar, [facility] [id number] [address] Mar, [facility] [id number] [address] Mar, [facility] [id number] [address] Feb, [facility] [id number] [address] Feb, [facility] [id number] [address] Nov, [facility] [id number] [address] May, IMMUNIZATIONS No Known Immunizations SOCIAL HISTORY [...]
--- OUTSIDE RECORDS SUMMARY | 2017-12-25 20:37 | XMS REPORT ---
Author Author [facility] Address [address] [place] [address] Care Team Providers Care Clean Up Person Name Role Phone GRICELDA, SOUTH Unavailable PROBLEMS Type Condition ICD9-CM Code TOF14-ME Code Onset Dates Condition Status SNOMED Code Problem Amenorrhea N91.2 Active 35833586 Problem Mood disorder F39 Active 38504532 Problem PTSD (post-traumatic stress disorder) F43.10 Active 92728773 Problem Bipolar I disorder with depression F31.9 Active 02830185 Problem Mixed obsessional thoughts and acts F42.2 Active 45287678 Problem Obsessive-compulsive disorder, unspecified type F42.9 Active 884925251 ALLERGIES Substance Reaction Event Type Date Status Lamictal rash/blisters Drug Allergy Dec, Active Azithromycin hives Drug Allergy Dec, Active ORAGEL Unknown Non Drug Allergy Dec, Active ENCOUNTERS Encounter Location Date Diagnosis [facility] [id number] [place] [address] 20391- 5757 Sep, [facility] [id number] [place] [address] 75038- 4975 Sep, [facility] [id number] [place] [address] 00589- 6367 August, [facility] [id number] [place] [address] 74285- 9555 August, [facility] [id number] [place] [address] 86795- 5883 Jul, [facility] [id number] [place] [address] 51086- 5681 Jul, PTSD (post-traumatic stress disorder) F43.10 and Bipolar I disorder with depression F31.9 [facility] [address] [address] 1443 09 Jul, 2017 Pelvic pain R10.2 ; Amenorrhea N91.2 and BMI 50.0-59.9, adult Z68.43 [facility] [address] [place] [address] 61582- 9709 26 Jun, 2017 BMI 50.0-59.9, adult Z68.43 ; Bipolar I disorder with depression F31.9 ; PTSD (post-traumatic stress disorder) F43.10 and Mixed obsessional thoughts and acts F42.2 [facility] [id number] [place] [address] 15256 -2917 15 Jun, 2017 Other viral agents as the cause of diseases classified elsewhere B97.89 ; Other specified respiratory disorders J98.8 ; Bronchitis J40 and Cough R05 [place] [facility] [id number] [place] [address] 38028- 7002 Jun, PTSD (post-traumatic stress disorder) F43.10 [facility] [id number] [place] [address] 04286- 6124 Jun, PTSD (post-traumatic stress disorder) F43.10 and Bipolar I disorder with depression F31.9 [place] [id number] [place] [address] 67784- 8953 13 May, 2017 PTSD (post-traumatic stress disorder) F43.10 and Bipolar I disorder with depression F31.9 [place] [id number] [place] [address] 51564- 6414 12 May, 2017 [place] [facility] [id number] [place] [address] 75263- 0195 07 May, 2017 PTSD (post-traumatic stress disorder) F43.10 and Bipolar I disorder with depression F31.9 [facility] [address] [place] [address] 20415- 5363 Apr, PTSD (post-traumatic stress disorder) F43.10 and Bipolar I disorder with depression F31.9 [facility] [address] [address]- 3688 Apr, PTSD (post-traumatic stress disorder) F43.10 and Bipolar I disorder with depression F31.9 [facility] [address] [place] [address] 11489- 5777 Mar, PTSD (post-traumatic stress disorder) F43.10 ; Obsessive- compulsive disorder, unspecified type F42.9 ; Bipolar I disorder with depression F31.9 and Other assisted (current) drug therapy Z79.899 [facility] [id number] [place] [address] 49147- 4751 Mar, PTSD (post-traumatic stress disorder) F43.10 and Bipolar I disorder with depression F31.9 [place] [id number] [place] [address] 03914- 0062 Feb, PTSD (post-traumatic stress disorder) F43.10 and Bipolar I disorder with depression F31.9 [place] [id number] [place] [address] 32227- 6794 Feb, PTSD (post-traumatic stress disorder) F43.10 and Bipolar I disorder with depression F31.9 [facility] [id number] [place] [address] 82826 -9706 Jan, Strep pharyngitis J02.0 [facility] [address] [address]- 9656 Jan, [facility] [id number] [place] [address] 22630- 4209 Jan, [facility] [id number] [place] [address] 53329- 2305 Jan, PTSD (post-traumatic stress disorder) F43.10 and Bipolar I disorder with depression F31.9 [facility] [address] [address]- 9424 05 Jan, 2017 PTSD (post-traumatic stress disorder) F43.10 and Bipolar I disorder with depression F31.9 [facility] [address] [address]- 4100 05 Jan, 2017 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 [facility] [address] [place] [address] 16509- 1286 02 Jan, 2017 PTSD (post-traumatic stress disorder) F43.10 ; Obsessive- compulsive disorder, unspecified type F42.9 ; Bipolar I disorder with depression F31.9 and Other assisted (current) drug therapy Z79.899 [facility] [address] [place] [address] 52935- 9390 27 Dec, 2016 Encounter for IUD removal Z30.432 and control counseling Z30.09 [facility] [facility] [address] [place] [address] 82607- 4361 25 Dec, 2016 PTSD (post-traumatic stress disorder) F43.10 ; Obsessive- compulsive disorder, unspecified type F42.9 and Bipolar I disorder with depression F31.9 [place] [id number] [place] [address] 30888- 6609 Dec, PTSD (post-traumatic stress disorder) F43.10 and Bipolar I disorder with depression F31.9 [place] [address] [address]- 3457 12 Dec, 2016 PTSD (post-traumatic stress disorder) F43.10 and Bipolar I disorder with depression F31.9 [facility] [address] [address]- 9422 11 Dec, 2016 Mood disorder F39 [place] [facility] [address] [place] [address] 09685- 1558 08 Dec, 2016 PTSD (post-traumatic stress disorder) F43.10 ; Mood disorder F39 and Obsessive-compulsive disorder, unspecified type F42.9 [place] [address] [address]- 0499 07 Dec, 2016 PTSD (post-traumatic stress disorder) F43.10 and Bipolar I disorder with depression F31.9 [facility] [address] [facility] [id number] [address] 05 Dec, 2016 Adverse drug reaction, initial encounter T88.7XXA [facility] [id number] [address]- 7571 Dec, [facility] [id number] [address]- 8938 Nov, PTSD (post-traumatic stress disorder) F43.10 and Bipolar I disorder with depression F31.9 [facility] [id number] [address]- 4350 Nov, PTSD (post-traumatic stress disorder) F43.10 ; Mood disorder F39 and Obsessive-compulsive disorder, unspecified type F42.9 [facility] [id number] [address]- 4079 Nov, PTSD (post-traumatic stress disorder) F43.10 and Bipolar I disorder with depression F31.9 [facility] [id number] [address]- 8892 Nov, PTSD (post-traumatic stress disorder) F43.10 and Bipolar I disorder with depression F31.9 [facility] [id number] [address] Nov, [facility] [id number] [address]- 7477 Nov, PTSD (post-traumatic stress disorder) F43.10 and Bipolar I disorder with depression F31.9 [facility] [id number] [address]- 9651 Nov, PTSD (post-traumatic stress disorder) F43.10 and Bipolar I disorder with depression F31.9 [facility] [id number] [address]- 0354 Oct, [facility] [id number] [address]- 0238 Oct, PTSD (post-traumatic stress disorder) F43.10 ; Mood disorder F39 and Obsessive-compulsive disorder, unspecified type F42.9 [facility] [address] [place] [address] 61901- 3811 Oct, PTSD (post-traumatic stress disorder) F43.10 and Bipolar I disorder with depression F31.9 [place] [id number] [place] [address] 19018- 2069 Oct, PTSD (post-traumatic stress disorder) F43.10 and Bipolar I disorder with depression F31.9 [place] [id number] [place] [address] 70981- 8739 Oct, PTSD (post-traumatic stress disorder) F43.10 ; Mood disorder F39 and Obsessive-compulsive disorder, unspecified type F42.9 [place] [id number] [place] [address] 30371- 2804 Oct, [place] [id number] [place] [address] 93279- 6414 Oct, PTSD (post-traumatic stress disorder) F43.10 and Bipolar I disorder with depression F31.9 [place] [id number] [place] [address] 08441- 4943 Oct, PTSD (post-traumatic stress disorder) F43.10 ; Mood disorder F39 and Obsessive-compulsive disorder, unspecified type F42.9 [place] [address] [address]- 8921 Sep, PTSD (post-traumatic stress disorder) F43.10 and Bipolar I disorder with depression F31.9 [place] [id number] [place] [address] 65152- 8629 Sep, PTSD (post-traumatic stress disorder) F43.10 ; Mood disorder F39 and Obsessive-compulsive disorder, unspecified type F42.9 [place] [id number] [place] [address] 29412- 3789 Sep, PTSD (post-traumatic stress disorder) F43.10 and Bipolar I disorder with depression F31.9 [facility] [address] [address]- 7448 Sep, PTSD (post-traumatic stress disorder) F43.10 and Bipolar I disorder with depression F31.9 [facility] [address] [address]- 8707 August, PTSD (post-traumatic stress disorder) F43.10 and Bipolar I disorder with depression F31.9 [facility] [id number] [place] [address] 76124 -6549 August, Pharyngitis due to other organism J02.8 [facility] [id number] [place] [address] 43048- 2166 August, PTSD (post-traumatic stress disorder) F43.10 ; Bipolar 1 disorder, mixed F31.60 and Other assisted (current) drug therapy Z79.899 [place] [address] [place] [address] 37799- 1792 August, PTSD (post-traumatic stress disorder) F43.10 and Bipolar I disorder with depression F31.9 [facility] [address] [address]- 1825 Jul, PTSD (post-traumatic stress disorder) F43.10 and Bipolar I disorder with depression F31.9 [facility] [address] [address]- 0853 Jul, PTSD (post-traumatic stress disorder) F43.10 and Bipolar I disorder with depression F31.9 [facility] [id number] [place] [address] 65075- 0022 Jul, PTSD (post-traumatic stress disorder) F43.10 and Bipolar I disorder with depression F31.9 [facility] [address] [address]- 0226 03 Apr, 2017 Other assisted (current) drug therapy Z79.899 [facility] [id number] [place] [address] 07056- 1162 28 Jun, 2016 PTSD (post-traumatic stress disorder) F43.10 and Bipolar I disorder with depression F31.9 [place] [id number] [place] [address] 50799- 6539 23 Jun, 2016 Bipolar 1 disorder, mixed F31.60 ; PTSD (post-traumatic stress disorder) F43.10 and 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 [place] [id number] [place] [address] 54635- 3271 Jun, PTSD (post-traumatic stress disorder) F43.10 and Depression , unspecified depression type F32.9 [place] [id number] [place] [address] 28513- 7298 14 Jun, 2016 PTSD (post-traumatic stress disorder) F43.10 and Depression , unspecified depression type F32.9 [place] [id number] [place] [address] 93931- 7054 Jun, PTSD (post-traumatic stress disorder) F43.10 and Depression , unspecified depression type F32.9 [facility] [id number] [place] [address] 89468 -5580 May, Fever, unspecified fever cause R50.9 and Gastroenteritis K52.9 [place] [id number] [place] [address] 96155- 0422 Mar, Sprain of other ligament of right ankle, subsequent encounter S93.491D [place] [id number] [place] [address] 89226- 1190 Mar, [facility] [id number] [place] [address] 86012 -5193 Feb, Scabies infestation B86 [place] [id number] [place] [address] 88072- 8306 08 Feb, 2016 Dental caries K02.9 [facility] [address] [address]- 5014 Jan, [facility] [address] [place] [address] 79089 -1835 Jan, Pharyngitis, unspecified etiology J02.9 [facility] [address] [address]- 7581 Jan, [facility] [id number] [place] [address] 36469- 3297 Jan, Bipolar affective disorder, remission status unspecified F31.9 [place] [id number] [place] [address] 21465- 2443 Jan, Encounter for dental examination and cleaning without abnormal findings Z01.20 [facility] [address] [place] [address] 88959- 6195 Jan, Bipolar affective disorder, remission status unspecified F31.9 [facility] [id number] [place] [address] 08958- 0497 29 Dec, 2015 Bipolar affective disorder, remission status unspecified F31.9 and Depression, unspecified depression type F32.9 [facility] [address] [place] [address] 80461- 0545 12 Dec, 2015 Unspecified mood [affective] disorder F39 and Generalized anxiety disorder F41.1 [facility] [address] [place] [address] 18260- 6684 08 Dec, 2015 Depression, unspecified depression type F32.9 [facility] [address] [place] [address] 73059- 0510 Nov, Dental caries K02.9 [facility] [address] [place] [address] 58205- 4261 Nov, Dental examination Z01.20 [facility] [address] [place] [address] 97500- 1700 Sep, Bipolar affective disorder, remission status unspecified F31.9 [facility] [id number] [place] [address] 75091- 9939 August, Tension headache G44.209 [facility] [id number] [place] [address] 48787 -7664 Jul, [facility] [id number] [place] [address] 27191 -8102 Jul, Upper respiratory infection J06.9 and Gastroenteritis K52.9 [facility] [id number] [place] [address] 16394- 0227 Jun, Bronchitis J40 [facility] [address] 16322 -0676 Feb, Thoracic back pain M54.6 and Left shoulder pain M25.512 [facility] [id number] [place] [address] 76260- 5848 Feb, [facility] [id number] [place] [address] 53387- 4308 Jul, [facility] [id number] [place] [address] 48084- 2384 Jul, [facility] [id number] [place] [address] 12293- 1919 Apr, [facility] [id number] [place] [address] 18077- 3802 Apr, [facility] [id number] [place] [address] 91249- 6048 Apr, [facility] [id number] [place] [address] 39767- 4995 Apr, [facility] [id number] [place] [address] 70917- 0706 Mar, [facility] [id number] [place] [address] 39900- 0820 Mar, [facility] [place] [facility] [address] [id number] [place] [address]704 Mar, [facility] [place] [facility] [address] [id number] [place] 8247 Mar, [facility] [place] [facility] [address] [id number] [place] [address]- 5630 Feb, [facility] [place] [facility] [address] [id number] [place] [address]- 5843 Feb, [facility] [place] [facility] [address] [id number] [place] [address]- 5650 Feb, [facility] [place] [facility] [address] [id number] [place] [address]- 2346 Feb, [facility] [place] [facility] [address] [id number] [place] [address]- 3904 Jan, [facility] [place] [facility] [address] [id number] [place] [address]- 2664 Jan, [facility] [place] [facility] [address] [id number] [place] [address]- 0333 Jan, [facility] [place] [facility] [address] [id number] [place] [address]- 7627 14 Jan, 2014 [facility] [place] [facility] [address] [id number] [place] [address]- 8411 Jan, [facility] [place] [facility] [address] [id number] [place] [address]- 5068 Jan, [facility] [place] [facility] [address] [id number] [place] [address]- 7017 15 Dec, 2013 [facility] [place] [facility] [address] [id number] [place] [address]- 6845 15 Dec, 2013 [facility] [place] [facility] [address] [id number] [place] [address]- 8123 Nov, [facility] [place] [facility] [address] [id number] [place] [address]- 3094 Nov, [facility] [place] [facility] [address] [id number] [place] [address]- 0946 Nov, [facility] [place] [facility] [address] [id number] [place] [address]- 6197 Nov, [facility] [place] [facility] [address] [id number] [place] [address]- 1904 Nov, [facility] [place] [facility] [address] [id number] [place] [address]- 6516 Nov, [facility] [place] [facility] [address] [id number] [place] [address]- 4060 Nov, [facility] [place] [facility] [address] [id number] [place] [address]- 2276 Nov, [facility] [place] [facility] [address] [id number] [place] [address]- 3628 Nov, [facility] [place] [facility] [address] [id number] [place] [address]- 8688 Oct, [facility] [place] [facility] [address] [id number] [place] [address]- 8955 Oct, [facility] [place] [facility] [address] [id number] [place] [address]- 5812 Oct, [facility] [place] [facility] [address] [id number] [place] [address]- 2971 Oct, [facility] [place] [facility] [address] [id number] [place] [address]- 8845 Oct, [facility] [place] [facility] [address] [id number] [place] [address]- 4667 Oct, [facility] [place] [facility] [address] [id number] [place] [address]- 4211 Oct, [facility] [place] [facility] [address] [id number] [place] [address]- 8021 Oct, [facility] [place] [facility] [address] [id number] [place] [address]- 5864 15 Oct, 2013 [facility] [place] [facility] [address] [id number] [place] [address]- 0413 Oct, 2013 [facility] [place] [facility] [address] [id number] [place] [address]- 3522 Oct, 2013 [facility] [place] [facility] [address] [id number] [place] [address]- 5933 Oct, 2013 [facility] [place] [facility] [address] [id number] [place] [address]- 9719 Oct, 2013 [facility] [place] [facility] [address] [id number] [place] [address]- 5372 Oct, 2013 [facility] [place] [facility] [address] [id number] [place] [address]- 6801 Oct, 2013 [facility] [place] [facility] [address] [id number] [place] [address]- 5445 Oct, 2013 [facility] [place] [facility] [address] [id number] [place] [address]- 2541 Oct, [facility] [place] [facility] [address] [id number] [place] [address]- 3266 Oct, [facility] [place] [facility] [address] [id number] [place] [address]- 1631 Oct, [facility] [place] [facility] [address] [id number] [place] [address]- 8385 Sep, [facility] [place] [facility] [address] [id number] [place] [address]- 0097 Sep, [facility] [place] [facility] [address] [id number] [place] [address]- 6764 Sep, [facility] [place] [facility] [address] [id number] [place] [address]- 3928 Sep, [facility] [place] [facility] [address] [id number] [place] [address]- 7001 Feb, [facility] [address] [id number] [place] [address]- 7802 Feb, [facility] [place] [facility] [address] [id number] [place] [address]- 3658 Dec, [facility] [place] [facility] [address] [id number] [place] 3051 Dec, [facility] [place] [facility] [address] [id number] [place] [address] Nov, [facility] [place] [facility] [address] [id number] [place] [address] Nov, [facility] [place] [facility] [address] [id number] [place] [address] Nov, [facility] [place] [facility] [address] [id number] [place] [address] Nov, [facility] [place] [facility] [address] [id number] [place] [address] Nov, [facility] [place] [facility] [address] [id number] [place] [address] Nov, [facility] [place] [facility] [address] [id number] [place] [address] Oct, [facility] [place] [facility] [address] [id number] [place] [address] Apr, [facility] [place] [facility] [address] [id number] [place] [address] August, [facility] [place] [facility] [address] [id number] [place] [address] August, [facility] [place] [facility] [address] [id number] [place] [address] August, [facility] [place] [facility] [address] [id number] [place] [address] Jul, [facility] [place] [facility] [address] [id number] [place] [address] 28 Jun, 2011 [facility] [place] [facility] [address] [id number] [place] [address] Jun, [facility] [place] [facility] [address] [id number] [place] [address] 14 Jun, 2011 [facility] [place] [facility] [address] [id number] [place] [address] 14 Jun, 2011 [facility] [place] [facility] [address] [id number] [place] [address] Jun, [facility] [place] [facility] [address] [id number] [place] [address] Jun, [facility] [place] [facility] [address] [id number] [place] [address] May, [facility] [place] [facility] [address] [facility] [id number] [place] [address] 16 May, 2011 [facility] [place] [facility] [address] [id number] [place] [address] May, [facility] [place] [facility] [address] [id number] [place] [address] 07 May, 2011 [facility] [place] [facility] [address] [facility] [id number] [place] [address] 06 May, 2011 [facility] [place] [facility] [address] [id number] [place] [address] May, [facility] [place] [facility] [address] [id number] [place] [address] Apr, [facility] [place] [facility] [address] [id number] [place] [address] Mar, [facility] [place] [facility] [address] [facility] [id number] [place] [address] Mar, [facility] [place] [facility] [address] [facility] [id number] [place] [address] Feb, [facility] [id number] [address] Jan, [facility] [id number] [address] Mar, [facility] [id number] [address] Mar, [facility] [id number] [address] Mar, [facility] [id number] [address] Mar, [facility] [id number] [address] Mar, [facility] [id number] [address] Feb, [facility] [id number] [address] Feb, [facility] [id number] [address] Nov, [facility] [id number] [address] May, IMMUNIZATIONS No Known Immunizations SOCIAL HISTORY Never Assessed REASON FOR VISIT f/shay Quinn MA PLAN OF CARE Activity Details Follow Up 2 Weeks Reason: f/u VITAL SIGNS Height 64 in 2016-12-20 Weight 292.3 lbs 2016-12-20 BMI 50.17 kg/m2 2016-12-20 MEDICATIONS Medication Instructions Dosage Frequency Start Date End Date Duration Status Crestline Carbonate 300 MG Orally once time per day for one week, then two times per day 1 capsule Dec, 30 day(s) Active Klonopin 0.5 MG Orally Twice a day as needed 1 tablet Active Celexa 20 mg Orally Once a day 1 tablet 24h 30 day(s) Active Mirena 20 MCG/24HR Active Latuda 60 mg Orally Once a day at supper with food 1 tablet 30 day( s) Active RESULTS No Results PROCEDURES No Known procedures INSTRUCTIONS MEDICATIONS ADMINISTERED No Known Medications MEDICAL (GENERAL) HISTORY Type Description Date Medical History HELP syndrome Medical History bi-polar Medical History hypertension Medical History hx of seizure x1, isolated Surgical History gallbladder 10/2013 Surgical History 03/2014 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
--- OUTSIDE RECORDS SUMMARY | 2017-12-25 20:38 | XMS REPORT ---
Author Author [facility] Address [address] [place] [address] Care Team Providers Care Pediatric Acute Care Unit Nurse Name Role Phone [place] Unavailable PROBLEMS Type Condition ICD9-CM Code AGL55-KU Code Onset Dates Condition Status SNOMED Code Problem Bipolar I disorder with depression F31.9 Active 63346859 Problem Amenorrhea N91.2 Active 68128559 Problem Social anxiety disorder F40.10 Active 30309881 Problem Obsessive-compulsive disorder, unspecified type F42.9 Active 251456890 Problem PTSD (post-traumatic stress disorder) F43.10 Active 42194699 Problem Mood disorder F39 Active 68036470 Problem Mixed obsessional thoughts and acts F42.2 Active 52553974 ALLERGIES No Information ENCOUNTERS Encounter Location Date Diagnosis [facility] [id number] [place] [address] 25592- 5472 Sep, [facility] [id number] [place] [address] 65508- 6128 Sep, [facility] [id number] [place] [address] 71385- 5757 Sep, [facility] [id number] [place] [address] 85666- 8216 August, [facility] [id number] [place] [address] 56633- 0566 August, [facility] [address] 98144- 3966 August, [facility] [id number] [place] [address] 72067- 5905 August, PTSD (post-traumatic stress disorder) F43.10 and Bipolar I disorder with depression F31.9 [facility] [address] [place] [address] 35073- 1530 August, [facility] [address] 08969- 3494 Jul, Bipolar I disorder with depression F31.9 ; PTSD (post- traumatic stress disorder) F43.10 ; Mixed obsessional thoughts and acts F42.2 ; Social anxiety disorder F40.10 and BMI 50.0-59.9, adult Z68.43 [facility] [id number] [place] [address] 24214- 9700 Jul, PTSD (post-traumatic stress disorder) F43.10 and Bipolar I disorder with depression F31.9 [facility] [id number] [place] [address] 72648- 1836 Jul, Pelvic pain R10.2 ; Amenorrhea N91.2 and BMI 50.0-59.9, adult Z68.43 [facility] [id number] [place] [address] 21949- 4566 Jun, BMI 50.0-59.9, adult Z68.43 ; Bipolar I disorder with depression F31.9 ; PTSD (post-traumatic stress disorder) F43.10 and Mixed obsessional thoughts and acts F42.2 [facility] [address] [place] [address] 44485 -1558 Jun, Other viral agents as the cause of diseases classified elsewhere B97.89 ; Other specified respiratory disorders J98.8 ; Bronchitis J40 and Cough R05 [facility] [id number] [place] [address] 94636- 2376 Jun, PTSD (post-traumatic stress disorder) F43.10 [place] [id number] [place] [address] 94625- 3498 Jun, PTSD (post-traumatic stress disorder) F43.10 and Bipolar I disorder with depression F31.[address] 48640- 0072 May, PTSD (post-traumatic stress disorder) F43.10 and Bipolar I disorder with depression F31.9 [facility] [address] [place] [address] 25944- 4616 12 May, 2017 [facility] [address] [place] [address] 24402- 6012 07 May, 2017 PTSD (post-traumatic stress disorder) F43.10 and Bipolar I disorder with depression F31.9 [facility] [id number] [place] [address] 36573- 8519 Apr, PTSD (post-traumatic stress disorder) F43.10 and Bipolar I disorder with depression F31.9 [facility] [id number] [place] [address] 87012- 0122 Apr, PTSD (post-traumatic stress disorder) F43.10 and Bipolar I disorder with depression F31.9 [facility] [id number] [place] [address] 97628- 4011 Mar, PTSD (post-traumatic stress disorder) F43.10 ; Obsessive- compulsive disorder, unspecified type F42.9 ; Bipolar I disorder with depression F31.9 and Other fci (current) drug therapy Z79.899 [facility] [address] [place] [address] 41080- 0013 13 Mar, 2017 PTSD (post-traumatic stress disorder) F43.10 and Bipolar I disorder with depression F31.9 [facility] [address] [place] [address] 46749- 7594 Feb, PTSD (post-traumatic stress disorder) F43.10 and Bipolar I disorder with depression F31.9 [facility] [id number] [place] [address] 12074- 3589 Feb, PTSD (post-traumatic stress disorder) F43.10 and Bipolar I disorder with depression F31.9 [facility] [address] [place] [address] 01877 -0931 Jan, Strep pharyngitis J02.0 [facility] [address] [address]- 0564 Jan, [facility] [id number] [place] [address] 10759- 8886 Jan, [facility] [facility] [address] [place] [address] 33307- 6076 Jan, PTSD (post-traumatic stress disorder) F43.10 and Bipolar I disorder with depression F31.9 [facility] [id number] [place] [address] 75194- 5789 Jan, PTSD (post-traumatic stress disorder) F43.10 and Bipolar I disorder with depression F31.9 [facility] [address] [place] [address] 38945- 3516 Jan, Other fci (current) drug therapy Z79.899 [facility] [id number] [place] [address] 32691- 1483 02 Jan, 2017 PTSD (post-traumatic stress disorder) F43.10 ; Obsessive- compulsive disorder, unspecified type F42.9 ; Bipolar I disorder with depression F31.9 and Other fci (current) drug therapy Z79.899 [place] [address] [place] [address] 80012- 5672 27 Dec, 2016 Encounter for IUD removal Z30.432 and control counseling Z30.09 [facility] [address] [place] [address] 99973- 4037 Dec, PTSD (post-traumatic stress disorder) F43.10 ; Obsessive- compulsive disorder, unspecified type F42.9 and Bipolar I disorder with depression F31.9 [place] [address] [place] [address] 21980- 3379 Dec, PTSD (post-traumatic stress disorder) F43.10 and Bipolar I disorder with depression F31.9 [place] [address] [place] [address] 89608- 3635 12 Dec, 2016 PTSD (post-traumatic stress disorder) F43.10 and Bipolar I disorder with depression F31.9 [facility] [id number] [address]- 0076 11 Dec, 2016 Mood disorder F39 [facility] [id number] [address]- 0577 08 Dec, 2016 PTSD (post-traumatic stress disorder) F43.10 ; Mood disorder F39 and Obsessive-compulsive disorder, unspecified type F42.9 [facility] [id number] [address]- 1437 07 Dec, 2016 PTSD (post-traumatic stress disorder) F43.10 and Bipolar I disorder with depression F31.9 [facility] [id number] [address] -1831 Dec, Adverse drug reaction, initial encounter T88.7XXA [facility] [id number] [place] [address] 62092- 4983 Dec, [facility] [address] [place] [address] 73500- 1545 Nov, PTSD (post-traumatic stress disorder) F43.10 and Bipolar I disorder with depression F31.9 [facility] [id number] [address]- 9775 Nov, PTSD (post-traumatic stress disorder) F43.10 ; Mood disorder F39 and Obsessive-compulsive disorder, unspecified type F42.9 [facility] [id number] [address]- 2083 Nov, PTSD (post-traumatic stress disorder) F43.10 and Bipolar I disorder with depression F31.9 [facility] [id number] [address]- 8053 Nov, PTSD (post-traumatic stress disorder) F43.10 and Bipolar I disorder with depression F31.9 [facility] [id number] [place] [address] 52787 -8678 Nov, [facility] [id number] [address]- 2446 Nov, PTSD (post-traumatic stress disorder) F43.10 and Bipolar I disorder with depression F31.9 [facility] [id number] [address] 2546 Nov, PTSD (post-traumatic stress disorder) F43.10 and Bipolar I disorder with depression F31.9 [facility] [id number] [address]- 5876 Oct, [facility] [id number] [address]- 3336 Oct, PTSD (post-traumatic stress disorder) F43.10 ; Mood disorder F39 and Obsessive-compulsive disorder, unspecified type F42.9 [facility] [id number], [place] [address]- 2576 Oct, PTSD (post-traumatic stress disorder) F43.10 and Bipolar I disorder with depression F31.9 [facility] [id number], [place] [address]- 9658 Oct, PTSD (post-traumatic stress disorder) F43.10 and Bipolar I disorder with depression F31.9 [facility] [id number] [address]- 6846 Oct, PTSD (post-traumatic stress disorder) F43.10 ; Mood disorder F39 and Obsessive-compulsive disorder, unspecified type F42.9 [facility] [address] [facility] [id number] [address]- 5676 Oct, [facility] [id number] [address]- 8286 Oct, PTSD (post-traumatic stress disorder) F43.10 and Bipolar I disorder with depression F31.9 [facility] [id number] [address]- 0162 Oct, PTSD (post-traumatic stress disorder) F43.10 ; Mood disorder F39 and Obsessive-compulsive disorder, unspecified type F42.9 [facility] [id number] [place] [address] 47123- 2669 Sep, PTSD (post-traumatic stress disorder) F43.10 and Bipolar I disorder with depression F31.9 [facility] [id number] [place] [address] 75175- 7932 Sep, PTSD (post-traumatic stress disorder) F43.10 ; Mood disorder F39 and Obsessive-compulsive disorder, unspecified type F42.9 [facility] [id number] [place] [address] 44241- 5585 Sep, PTSD (post-traumatic stress disorder) F43.10 and Bipolar I disorder with depression F31.9 [facility] [id number] [place] [address] 22386- 0589 Sep, PTSD (post-traumatic stress disorder) F43.10 and Bipolar I disorder with depression F31.9 [facility] [id number] [place] [address] 68382- 3138 August, PTSD (post-traumatic stress disorder) F43.10 and Bipolar I disorder with depression F31.9 [facility] [address] [place] [address] 29164 -7299 August, Pharyngitis due to other organism J02.8 [facility] [address] [place] [address] 81180- 1698 August, PTSD (post-traumatic stress disorder) F43.10 ; Bipolar 1 disorder, mixed F31.60 and Other fci (current) drug therapy Z79.899 [place] [address] [place] [address] 57619- 1644 August, PTSD (post-traumatic stress disorder) F43.10 and Bipolar I disorder with depression F31.9 [facility] [id number] [place] [address] 79393- 7678 Jul, PTSD (post-traumatic stress disorder) F43.10 and Bipolar I disorder with depression F31.9 [facility] [address] [place] [address] 34357- 6350 Jul, PTSD (post-traumatic stress disorder) F43.10 and Bipolar I disorder with depression F31.9 [place] [address] [place] [address] 41810- 1059 Jul, PTSD (post-traumatic stress disorder) F43.10 and Bipolar I disorder with depression F31.9 [place] [address] [place] [address] 65755- 8663 Jul, Other fci (current) drug therapy Z79.899 [facility] [id number] [place] [address] 06804- 4876 Jun, PTSD (post-traumatic stress disorder) F43.10 and Bipolar I disorder with depression F31.9 [facility] [address] [place] [address] 86314- 8442 Jun, Bipolar 1 disorder, mixed F31.60 ; PTSD (post-traumatic stress disorder) F43.10 and Other fci (current) drug therapy Z79.899 [place] [address] [place] [address] 07361- 9327 Jun, PTSD (post-traumatic stress disorder) F43.10 and Depression , unspecified depression type F32.9 [facility] [address] [address]- 5338 Jun, PTSD (post-traumatic stress disorder) F43.10 and Depression , unspecified depression type F32.9 [place] [address] [place] [address] 19244- 6917 Jun, PTSD (post-traumatic stress disorder) F43.10 and Depression , unspecified depression type F32.9 [facility] [address] [place] [address] 60450 -7169 May, Fever, unspecified fever cause R50.9 and Gastroenteritis K52.9 [place] [address] 28570- 5494 Mar, Sprain of other ligament of right ankle, subsequent encounter S93.491D [facility] [address] 88582- 6303 Mar, [facility] [address] 92925 -0590 Feb, Scabies infestation B86 [place] [address] 93338- 0682 Feb, Dental caries K02.9 [place] [address] 82688- 6219 Jan, [facility] [address] 10176 -4064 Jan, Pharyngitis, unspecified etiology J02.9 [place] [id number] [place] [address] 54440- 8398 Jan, [place] [address] 42320- 6033 Jan, Bipolar affective disorder, remission status unspecified F31.9 [place] [id number] [place] [address] 60331- 5693 Jan, Encounter for dental examination and cleaning without abnormal findings Z01.20 [facility] [id number] [place] [address] 21365- 5395 Jan, Bipolar affective disorder, remission status unspecified F31.9 [place] [address] 52525- 5066 Dec, Bipolar affective disorder, remission status unspecified F31.9 and Depression, unspecified depression type F32.9 [place] [address] 54217- 4618 12 Dec, 2015 Unspecified mood [affective] disorder F39 and Generalized anxiety disorder F41.1 [facility] [address] 56486- 0097 08 Dec, 2015 Depression, unspecified depression type F32.9 [facility] [address] 53307- 5099 Nov, Dental caries K02.9 [facility] [address] 84283- 8640 Nov, Dental examination Z01.20 [place] [address] 43708- 9530 Sep, Bipolar affective disorder, remission status unspecified F31.9 [place] [address] 18349- 8519 August, Tension headache G44.209 [facility] [address] 71037 -3594 Jul, [facility] [address] 43211 -4630 Jul, Upper respiratory infection J06.9 and Gastroenteritis K52.9 [place] [address] 23600- 3526 Jun, Bronchitis J40 [facility] [address] 24891 -1472 Feb, Thoracic back pain M54.6 and Left shoulder pain M25.512 [facility] [address] 75516- 0333 Feb, [place] [address] 92982- 0203 14 Jul, 2014 [place] [address] 99234- 5053 Jul, [facility] [address] [place] [address]- 7924 Apr, [facility] [place] [facility] [address] [id number] [place] [address]- 1235 Apr, [facility] [place] [facility] [address] [id number] [place] [address]- 3698 Apr, [facility] [place] [facility] [address] [id number] [place] [address]- 5107 Apr, [facility] [place] [facility] [address] [id number] [place] [address]- 8748 Mar, [facility] [place] [facility] [address] [id number] [place] [address]- 1627 Mar, [facility] [place] [facility] [address] [id number] [place] [address]- 8952 Mar, [facility] [place] [facility] [address] [id number] [place] [address]- 1851 Mar, [facility] [place] [facility] [address] [id number] [place] [address]- 9322 Feb, [facility] [place] [facility] [address] [id number] [place] [address]- 8210 Feb, [facility] [place] [facility] [address] [facility] [id number] [place] [address]- 7654 Feb, [facility] [place] [facility] [address] [id number] [place] [address]- 9411 Feb, [facility] [place] [facility] [address] [id number], [place] [address]- 3730 Jan, [facility] [place] [facility] [address] [id number] [place] [address]- 7440 Jan, [facility] [place] [facility] [address] [id number] [place] [address]- 6057 Jan, [facility] [place] [facility] [address] [id number] [place] [address]- 3880 Jan, [facility] [place] [facility] [address] [id number] [place] [address]- 5513 Jan, [facility] [place] [facility] [address] [id number] [place] [address]- 9326 Jan, [facility] [place] [facility] [address] [id number] [place] [address]- 7966 Dec, [facility] [place] [facility] [address] [id number] [place] [address]- 7498 Dec, [facility] [place] [facility] [address] [id number] [place] [address]- 2600 Nov, [facility] [place] [facility] [address] [id number] [place] [address]- 6863 Nov, [facility] [place] [facility] [address] [id number] [place] [address]- 0205 Nov, [facility] [place] [facility] [address] [id number] [place] [address]- 9573 Nov, [facility] [place] [facility] [address] [id number] [place] [address]- 0819 Nov, [facility] [place] [facility] [address] [id number] [place] [address]- 8085 Nov, [facility] [place] [facility] [address] [id number] [place] [address]- 1385 Nov, [facility] [place] [facility] [address] [id number] [place] [address]- 7859 Nov, [facility] [place] [facility] [address] [id number] [place] [address]- 8471 Nov, [facility] [place] [facility] [address] [id number] [place] [address]- 6033 Oct, [facility] [place] [facility] [address] [id number] [place] [address]- 3155 Oct, [facility] [place] [facility] [address] [id number] [place] [address]- 4805 Oct, 2013 [facility] [place] [facility] [address] [id number] [place] [address]- 8993 Oct, 2013 [facility] [place] [facility] [address] [id number] [place] [address]- 1226 Oct, [facility] [place] [facility] [address] [id number] [place] [address]- 9688 Oct, 2013 [facility] [place] [facility] [address] [id number] [place] [address]- 0527 Oct, 2013 [facility] [place] [facility] [address] [id number] [place] [address]- 5530 Oct, 2013 [facility] [place] [facility] [address] [id number] [place] [address]- 5142 Oct, 2013 [facility] [place] [facility] [address] [id number] [place] [address]- 6017 Oct, 2013 [facility] [place] [facility] [address] [id number] [place] [address]- 6434 Oct, 2013 [facility] [place] [facility] [address] [id number] [place] [address]- 1708 Oct, [facility] [place] [facility] [address] [id number] [place] [address]- 3193 Oct, [facility] [place] [facility] [address] [id number] [place] [address]- 3932 Oct, [facility] [place] [facility] [address] [id number] [place] [address]- 5825 Oct, 2013 [facility] [place] [facility] [address] [id number] [place] [address]- 7393 Oct, [facility] [place] [facility] [address] [id number] [place] [address]- 7484 Oct, [facility] [place] [facility] [address] [id number] [place] [address]- 5120 Oct, 2013 [facility] [place] [facility] [address] [id number] [place] [address]- 9561 Oct, [facility] [address] [id number] [place] [address]- 7969 Sep, [facility] [place] [facility] [address] [id number] [place] [address]- 5135 Sep, [facility] [place] [facility] [address] [id number] [place] [address]- 6749 Sep, [facility] [place] [facility] [address] [id number] [place] [address]- 6847 Sep, [facility] [place] [facility] [address] [id number] [place] [address]- 3498 Feb, [facility] [place] [facility] [address] [id number] [place] [address]- 1026 Feb, [facility] [address] [id number] [place] [address]- 3515 Dec, [facility] [place] [facility] [address] [id number] [place] [address]- 3808 Dec, [facility] [place] [facility] [address] [id number] [place] [address]- 4188 Nov, [facility] [place] [facility] [address] [id number] [place] [address]- 5554 Nov, [facility] [place] [facility] [address] [id number] [place] [address]- 9141 Nov, [facility] [place] [facility] [address] [id number] [place] [address]- 9923 Nov, [facility] [place] [facility] [address] [id number] [place] [address]- 1045 Nov, [facility] [place] [facility] [address] [id number] [place] [address]- 3829 Nov, [facility] [place] [facility] [address] [id number] [place] [address]- 3038 Oct, [facility] [place] [facility] [address] [id number] [place] [address]- 8606 Apr, [facility] [place] [facility] [address] [id number] [place] [address]- 5845 August, [facility] [place] [facility] [address] [id number] [place] [address] August, [facility] [place] [facility] [address] [id number] [place] [address] August, [facility] [address] [id number] [place] [address] Jul, [facility] [place] [facility] [address] [id number] [place] [address] Jun, [facility] [place] [facility] [address] [id number] [place] [address] Jun, [facility] [address] [id number] [place] [address] Jun, [facility] [place] [facility] [address] [id number] [place] [address] Jun, [facility] [place] [facility] [address] [id number] [place] [address] Jun, [facility] [place] [facility] [address] [id number] [place] [address] Jun, [facility] [place] [facility] [address] [id number] [place] [address] May, [facility] [place] [facility] [address] [id number] [place] [address] May, [facility] [place] [facility] [address] [id number] [place] [address] May, [facility] [place] [facility] [address] [id number] [place] [address] May, [facility] [place] [facility] [address] [facility] [place] [id number] [place] [address] 06 May, 2011 [facility] [address] [facility] [place] [id number] [place] [address] 06 May, 2011 [facility] [address] [facility] [place] [id number] [place] [address] Apr, [facility] [address] [facility] [place] [id number] [place] [address] 07 Mar, 2011 [facility] [address] [facility] [place] [id number] [place] [address] 06 Mar, 2011 [facility] [address] [facility] [place] [id number] [place] [address] Feb, [facility] [address] [facility] [place] [id number] [place] [address] Jan, [place] [facility] [id number] [place] [address] 31 Mar, 2009 [facility] [address] [facility] [id number] [address] 15 Mar, 2009 [facility] [id number] [place] [address] 10 Mar, 2009 [facility] [address] [id number], [place] [address] 10 Mar, 2009 [facility] [id number], [place] [address] 02 Mar, 2009 [facility] [address] [facility] [place] [id number], [place] [address] 16 Feb, 2009 [facility] [address] [facility] [place] [id number], [place] [address] 02 Feb, 2009 [facility] [address] [facility] [place] [id number], [place] [address] 17 Nov, 2008 [facility] [address] [facility] [place] [id number], [place] [address] 10 May, 2008 IMMUNIZATIONS No Known Immunizations SOCIAL HISTORY Never Assessed REASON FOR VISIT Lab (walk-in) PLAN OF CARE VITAL SIGNS MEDICATIONS Unknown Medications RESULTS Name Result Date Reference Range LITHIUM (ESKALITH(R)), SERUM 2017-01-16 [place] (Eskalith(R)), Serum 0.4 0.6-1.2 TSH W/ FREE T4 2017-01-16 TSH 3.850 0.450-4.500 T4,Free(Direct) 0.94 0.82-1.77 LIPID PANEL 2017-01-16 Cholesterol, Total 170 100-199 Triglycerides 160 0-149 HDL Cholesterol 45 >39 VLDL Cholesterol Marcus 32 5-40 LDL Cholesterol Calc 93 0-99 CMP 2017-01-16 Glucose, Serum 100 65-99 BUN 10 6-20 Creatinine, Serum 0.88 0.57-1.00 eGFR If NonAfricn Am 91 >59 eGFR If Africn Am 105 >59 BUN/Creatinine Ratio 11 9-23 Sodium, Serum 144 134-144 Potassium, Serum 4.1 3.5-5.2 Chloride, Serum 103 96-106 Carbon Dioxide, Total 24 18-29 Calcium, Serum 9.1 8.7-10.2 Protein, Total, Serum 6.8 6.0-8.5 Albumin, Serum 4.1 3.5-5.5 Globulin, Total 2.7 1.5-4.5 A/G Ratio 1.5 1.2-2.2 Bilirubin, Total 0.4 0.0-1.2 Alkaline Phosphatase, S 76 39-117 AST (SGOT) 19 0-40 ALT (SGPT) 16 0-32 PROCEDURES Procedure Date Ordered Result Body Site ASSAY OF LITHIUM Jan 16, 2017 ASSAY THYROID STIM HORMONE Jan 16, 2017 LIPID PANEL Jan 16, 2017 ASSAY OF FREE THYROXINE Jan 16, 2017 VENIPUNCT, ROUTINE* Jan 16, 2017 COMPREHEN METABOLIC PANEL Jan 16, 2017 INSTRUCTIONS MEDICATIONS ADMINISTERED No Known Medications MEDICAL (GENERAL) HISTORY Type Description Date Medical History HELP syndrome Medical History bi-polar Medical History hypertension Medical History hx of seizure x1, isolated Surgical History gallbladder 10/2013 Surgical History 03/2014 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
--- OUTSIDE RECORDS SUMMARY | 2017-12-25 20:38 | XMS REPORT ---
Author Author LOBO KING [facility] eClinicalWorks Address Unknown Phone Unavailable Care Team Providers Care Mason Tender Name Role Phone LOBO KING CP Unavailable Allergies No Known Allergies Problems Problem Type Condition Code Onset Dates Condition Status Problem Bipolar affective disorder, remission status unspecified F31.9 Active Assessment Bipolar affective disorder, remission status unspecified F31.9 Active Problem Depression, unspecified depression type F32.9 Active Medications No Known Medications Procedures Procedure Coding System Code Date VENIPUNCT, ROUTINE* CPT-4 88441 Jan 29, 2016 COMPLETE CBC W/AUTO DIFF WBC CPT-4 36793 Jan 29, 2016 Results Name Result Date Reference Range Unit Abnormality Flag ROUTINE VENIPUNCTURE Summary Purpose eClinicalWorks Submission
--- OUTSIDE RECORDS SUMMARY | 2017-12-25 20:39 | XMS REPORT ---
Author Author SHARLENE Angeles [facility] IN CARE Address [address] [place] [address] Care Team Providers Care Cardiology Technician Name Role Phone SHARLENE Angeles Unavailable PROBLEMS Type Condition ICD9-CM Code RRV39-SZ Code Onset Dates Condition Status SNOMED Code Problem Amenorrhea N91.2 Active 81375876 Problem Mood disorder F39 Active 64074715 Problem PTSD (post-traumatic stress disorder) F43.10 Active 70095837 Problem Bipolar I disorder with depression F31.9 Active 22774969 Problem Mixed obsessional thoughts and acts F42.2 Active 36933562 Problem Obsessive-compulsive disorder, unspecified type F42.9 Active [id number] ALLERGIES Substance Reaction Event Type Date Status Azithromycin hives Drug Allergy Dec, Active ORAGEL Unknown Non Drug Allergy Dec, Active ENCOUNTERS Encounter Location Date Diagnosis [place] [id number] [place] [address] 79302- 4533 Sep, [facility] [id number] [place] [address] 89559- 7250 Sep, [facility] [id number] [place] [address] 37319- 3089 August, [facility] [id number] [place] [address] 60289- 2071 August, [facility] [id number] [place] [address] 24061- 3060 Jul, [facility] [id number] [place] [address] 02136- 3383 Jul, PTSD (post-traumatic stress disorder) F43.10 and Bipolar I disorder with depression F31.9 [facility] [id number] [place] [address] 16609- 8742 Jul, Pelvic pain R10.2 ; Amenorrhea N91.2 and BMI 50.0-59.9, adult Z68.43 [facility] [id number] [place] [address] 73632- 0884 26 Jun, 2017 BMI 50.0-59.9, adult Z68.43 ; Bipolar I disorder with depression F31.9 ; PTSD (post-traumatic stress disorder) F43.10 and Mixed obsessional thoughts and acts F42.2 [facility] [id number] [place] [address] 79384 -1114 15 Jun, 2017 Other viral agents as the cause of diseases classified elsewhere B97.89 ; Other specified respiratory disorders J98.8 ; Bronchitis J40 and Cough R05 [place] [id number] [place] [address] 95703- 6498 Jun, PTSD (post-traumatic stress disorder) F43.10 [place] [id number] [place] [address] 52087- 4140 Jun, PTSD (post-traumatic stress disorder) F43.10 and Bipolar I disorder with depression F31.9 [place] [id number] [place] [address] 52525- 0569 13 May, 2017 PTSD (post-traumatic stress disorder) F43.10 and Bipolar I disorder with depression F31.9 [place] [id number] [place] [address] 36577- 8143 12 May, 2017 [place] [id number] [place] [address] 97782- 6396 07 May, 2017 PTSD (post-traumatic stress disorder) F43.10 and Bipolar I disorder with depression F31.9 [facility] [id number] [place] [address] 96158- 7776 Apr, PTSD (post-traumatic stress disorder) F43.10 and Bipolar I disorder with depression F31.9 [place] [id number] [place] [address] 69323- 0974 Apr, PTSD (post-traumatic stress disorder) F43.10 and Bipolar I disorder with depression F31.9 [facility] [id number] [place] [address] 60413- 9728 Mar, PTSD (post-traumatic stress disorder) F43.10 ; Obsessive- compulsive disorder, unspecified type F42.9 ; Bipolar I disorder with depression F31.9 [place] [facility] [place] therapy Z79.899 [facility] [id number] [place] [address] 23274- 5185 Mar, PTSD (post-traumatic stress disorder) F43.10 and Bipolar I disorder with depression F31.9 [facility] [id number] [place] [address] 65032- 2471 Feb, PTSD (post-traumatic stress disorder) F43.10 and Bipolar I disorder with depression F31.9 [facility] [id number] [place] [address] 11277- 7732 Feb, PTSD (post-traumatic stress disorder) F43.10 and Bipolar I disorder with depression F31.9 [facility] [id number] [place] [address] 50945 -6658 Jan, Strep pharyngitis J02.0 [facility] [address] [address] 5846 Jan, [facility] [id number] [place] [address] 38070- 7777 Jan, [facility] [id number] [place] [address] 98506- 8770 Jan, PTSD (post-traumatic stress disorder) F43.10 and Bipolar I disorder with depression F31.9 [facility] [id number] [place] [address] 94063- 7006 05 Jan, 2017 PTSD (post-traumatic stress disorder) F43.10 and Bipolar I disorder with depression F31.9 [facility] [id number] [place] [address] 51760- 0565 05 Jan, 2017 Other ancillary specialist (current) drug therapy Z79.899 [place] [id number] [place] [address] 38402- 3044 02 Jan, 2017 PTSD (post-traumatic stress disorder) F43.10 ; Obsessive- compulsive disorder, unspecified type F42.9 ; Bipolar I disorder with depression F31.9 and [place] [facility] [place] drug therapy Z79.899 [place] [id number] [place] [address] 84847- 0085 27 Dec, 2016 Encounter for IUD removal Z30.432 and control counseling Z30.09 [place] [id number] [place] [address] 52545- 3268 25 Dec, 2016 PTSD (post-traumatic stress disorder) F43.10 ; Obsessive- compulsive disorder, unspecified type F42.9 and Bipolar I disorder with depression F31.9 [place] [id number] [place] [address] 44640- 2296 Dec, PTSD (post-traumatic stress disorder) F43.10 and Bipolar I disorder with depression F31.9 [place] [address] [id number] [place] [address] 14546- 6792 12 Dec, 2016 PTSD (post-traumatic stress disorder) F43.10 and Bipolar I disorder with depression F31.9 [place] [id number] [place] [address] 69308- 4835 11 Dec, 2016 Mood disorder F39 [place] [address] [id number] [place] [address] 70146- 0971 08 Dec, 2016 PTSD (post-traumatic stress disorder) F43.10 ; Mood disorder F39 and Obsessive-compulsive disorder, unspecified type F42.9 [place] [id number] [place] [address] 29575- 7303 07 Dec, 2016 PTSD (post-traumatic stress disorder) F43.10 and Bipolar I disorder with depression F31.9 [facility] [id number] [address]644 Dec, Adverse drug reaction, initial encounter T88.7XXA [facility] [address] [address]- 2256 Dec, [facility] [id number] [address]- 2841 Nov, PTSD (post-traumatic stress disorder) F43.10 and Bipolar I disorder with depression F31.9 [facility] [id number] [address]- 6308 Nov, PTSD (post-traumatic stress disorder) F43.10 ; Mood disorder F39 and Obsessive-compulsive disorder, unspecified type F42.9 [facility] [address] [id number] [address]- 7111 Nov, PTSD (post-traumatic stress disorder) F43.10 and Bipolar I disorder with depression F31.9 [facility] [address] [place] [address]- 9676 Nov, PTSD (post-traumatic stress disorder) F43.10 and Bipolar I disorder with depression F31.9 [facility] [id number] [address] -[address] Nov, [facility] [id number] [address]- 0800 Nov, PTSD (post-traumatic stress disorder) F43.10 and Bipolar I disorder with depression F31.9 [facility] [id number] [address]- 2193 Nov, PTSD (post-traumatic stress disorder) F43.10 and Bipolar I disorder with depression F31.9 [facility] [id number] [address]- 0052 Oct, [facility] [id number] [address]- 8920 Oct, PTSD (post-traumatic stress disorder) F43.10 ; Mood disorder F39 and Obsessive-compulsive disorder, unspecified type F42.9 [facility] [id number] [place] [address] 67711- 1862 Oct, PTSD (post-traumatic stress disorder) F43.10 and Bipolar I disorder with depression F31.9 [facility] [address] [address]- 6171 Oct, PTSD (post-traumatic stress disorder) F43.10 and Bipolar I disorder with depression F31.9 [facility] [address] [place] [address]- 1844 Oct, PTSD (post-traumatic stress disorder) F43.10 ; Mood disorder F39 and Obsessive-compulsive disorder, unspecified type F42.9 [facility] [address], [place] [address]- 9067 Oct, [facility] [id number] [place] [address] 45078- 0110 Oct, PTSD (post-traumatic stress disorder) F43.10 and Bipolar I disorder with depression F31.9 [facility] [id number] [place] [address] 69054- 5006 Oct, PTSD (post-traumatic stress disorder) F43.10 ; Mood disorder F39 and Obsessive-compulsive disorder, unspecified type F42.9 [facility] [address] [address]- 8759 Sep, PTSD (post-traumatic stress disorder) F43.10 and Bipolar I disorder with depression F31.9 [facility] [id number], [place] [address]- 1546 Sep, PTSD (post-traumatic stress disorder) F43.10 ; Mood disorder F39 and Obsessive-compulsive disorder, unspecified type F42.9 [facility] [id number], [place] [address]- 9405 Sep, PTSD (post-traumatic stress disorder) F43.10 and Bipolar I disorder with depression F31.9 [facility] [address], [place] [address]- 1616 Sep, PTSD (post-traumatic stress disorder) F43.10 and Bipolar I disorder with depression F31.9 [facility] [id number] [place] [address] 25131- 0276 August, PTSD (post-traumatic stress disorder) F43.10 and Bipolar I disorder with depression F31.9 [facility] [id number] [place] [address] 21379 -9879 August, Pharyngitis due to other organism J02.8 [facility] [id number] [place] [address] 15292- 7936 August, PTSD (post-traumatic stress disorder) F43.10 ; Bipolar 1 disorder, mixed F31.60 [place] [facility] [place] drug therapy Z79.899 [facility] [id number] [place] [address] 35686- 0409 August, PTSD (post-traumatic stress disorder) F43.10 and Bipolar I disorder with depression F31.9 [facility] [id number] [place] [address] 74781- 7737 Jul, PTSD (post-traumatic stress disorder) F43.10 and Bipolar I disorder with depression F31.9 [facility] [id number] [place] [address] 22825- 5097 Jul, PTSD (post-traumatic stress disorder) F43.10 and Bipolar I disorder with depression F31.9 [facility] [id number] [place] [address] 57611- 1688 Jul, PTSD (post-traumatic stress disorder) F43.10 and Bipolar I disorder with depression F31.9 [facility] [address], [place] [address]- 1600 Jul, Other ancillary specialist (current) drug therapy Z79.899 [place] [id number] [place] [address] 27548- 5907 Jun, PTSD (post-traumatic stress disorder) F43.10 and Bipolar I disorder with depression F31.9 [place] [address] [id number] [place] [address] 72996- 6659 Jun, Bipolar 1 disorder, mixed F31.60 ; PTSD (post-traumatic stress disorder) F43.10 and Other ancillary specialist (current) drug therapy Z79.899 [place] [address] 75378- 7569 Jun, PTSD (post-traumatic stress disorder) F43.10 and Depression , unspecified depression type F32.9 [place] [address] 17646- 6712 14 Jun, 2016 PTSD (post-traumatic stress disorder) F43.10 and Depression , unspecified depression type F32.9 [place] [address] 58575- 3523 Jun, PTSD (post-traumatic stress disorder) F43.10 and Depression , unspecified depression type F32.9 [facility] [address] [address]265 -4543 May, Fever, unspecified fever cause R50.9 and Gastroenteritis K52.9 [place] [address] 02409- 2688 Mar, Sprain of other ligament of right ankle, subsequent encounter S93.491D [place] [id number] [place] [address] 43169- 5940 Mar, [facility] [address] 73913 -0350 Feb, Scabies infestation B86 [place] [address] 40189- 0758 Feb, Dental caries K02.9 [place] [address], [place] [address]- 9660 Jan, [facility] [id number] [place] [address] 69186 -5060 Jan, Pharyngitis, unspecified etiology J02.9 [facility] [id number] [place] [address] 68846- 6673 Jan, [facility] [id number] [place] [address] 98216- 1133 Jan, Bipolar affective disorder, remission status unspecified F31.9 [place] [id number] [place] [address] 60339- 3274 Jan, Encounter for dental examination and cleaning without abnormal findings Z01.20 [facility] [id number] [place] [address] 06371- 0351 Jan, Bipolar affective disorder, remission status unspecified F31.9 [facility] [id number] [place] [address] 25475- 3485 Dec, Bipolar affective disorder, remission status unspecified F31.9 and Depression, unspecified depression type F32.9 [place] [id number] [place] [address] 29885- 1933 Dec, Unspecified mood [affective] disorder F39 and Generalized anxiety disorder F41.1 [facility] [id number] [place] [address] 53798- 0484 08 Dec, 2015 Depression, unspecified depression type F32.9 [facility] [id number] [place] [address] 92050- 1697 Nov, Dental caries K02.9 [place] [id number] [place] [address] 07930- 6746 Nov, Dental examination Z01.20 [facility] [id number] [place] [address] 83903- 6153 Sep, Bipolar affective disorder, remission status unspecified F31.9 [facility] [id number] [place] [address] 79478- 3077 August, Tension headache G44.209 [facility] [id number] [place] [address] 74965 -4399 Jul, [facility] [id number] [place] [address] 29074 -1305 Jul, Upper respiratory infection J06.9 and Gastroenteritis K52.9 [facility] [id number] [place] [address] 43993- 9447 Jun, Bronchitis J40 [facility] [address] 48739 -7436 Feb, Thoracic back pain M54.6 and Left shoulder pain M25.512 [facility] [id number] [place] [address] 84380- 1412 Feb, [facility] [id number] [place] [address] 04845- 7607 Jul, [facility] [id number] [place] [address] 89870- 5640 Jul, [facility] [id number] [place] [address] 89138- 2226 Apr, [facility] [id number] [place] [address] 10922- 0360 Apr, [facility] [id number] [place] [address] 64451- 5236 Apr, [facility] [id number] [place] [address] 11381- 1318 Apr, [facility] [id number] [place] [address] 59100- 3416 Mar, [facility] [address], [place] [address]- 7482 Mar, [facility] [address] [place] [address] [id number] [place] [place] 8949 Mar, [facility] [place] [facility] [address] [id number] [place] [address] Mar, [facility] [place] [facility] [address] [id number] [place] [address]- 4876 Feb, [facility] [place] [facility] [address] [id number] [place] [address]- 2269 Feb, [facility] [place] [facility] [address] [id number] [place] [address]- 0644 Feb, [facility] [place] [facility] [address] [id number] [place] [address]- 9989 Feb, [facility] [place] [facility] [address] [id number] [place] [address]- 1227 Jan, [facility] [place] [facility] [address] [id number] [place] [address]- 5718 15 Jan, 2014 [facility] [place] [facility] [address] [id number] [place] [address]- 7068 14 Jan, 2014 [facility] [place] [facility] [address] [id number] [place] [address]- 0994 14 Jan, 2014 [facility] [place] [facility] [address] [id number] [place] [address]- 5836 Jan, [facility] [place] [facility] [address] [id number] [place] [address]- 0676 Jan, [facility] [place] [facility] [address] [id number] [place] [address]- 7961 Dec, [facility] [place] [facility] [address] [id number] [place] [address]- 1425 Dec, [facility] [place] [facility] [address] [id number] [place] [address]- 9899 Nov, [facility] [place] [facility] [address] [id number] [place] [address]- 2972 Nov, [facility] [place] [facility] [address] [id number] [place] [address]- 0570 Nov, [facility] [place] [facility] [address] [id number] [place] [address]- 5789 Nov, [facility] [place] [facility] [address] [id number] [place] [address]- 8272 Nov, [facility] [place] [facility] [address] [id number] [place] [address]- 7809 Nov, [facility] [place] [facility] [address] [id number] [place] [address]- 6825 Nov, [facility] [place] [facility] [address] [id number] [place] [address]- 1067 Nov, [facility] [place] [facility] [address] [id number] [place] [address]- 9373 Nov, [facility] [place] [facility] [address] [id number] [place] [address]- 2897 Oct, [facility] [place] [facility] [address] [id number] [place] [address]- 7546 Oct, [facility] [place] [facility] [address] [id number] [place] [address]- 6776 Oct, [facility] [place] [facility] [address] [id number] [place] [address]- 1827 Oct, [facility] [place] [facility] [address] [id number] [place] [address]- 1270 Oct, [facility] [place] [facility] [address] [id number] [place] [address]- 3571 Oct, [facility] [place] [facility] [address] [id number] [place] [address]- 9303 Oct, [facility] [place] [facility] [address] [id number] [place] 1973 Oct, [facility] [place] [facility] [address] [id number] [place] [address]- 1393 Oct, 2013 [facility] [place] [facility] [address] [id number] [place] [address]- 7944 Oct, 2013 [facility] [place] [facility] [address] [id number] [place] [address]- 1523 Oct, 2013 [facility] [place] [facility] [address] [id number] [place] [address]- 6014 Oct, 2013 [facility] [place] [facility] [address] [id number] [place] [address]- 0280 Oct, 2013 [facility] [place] [facility] [address] [id number] [place] [address]- 3624 Oct, [facility] [place] [facility] [address] [id number] [place] [address]- 2482 Oct, 2013 [facility] [place] [facility] [address] [id number] [place] [address]- 5531 Oct, [facility] [place] [facility] [address] [id number] [place] [address]- 1253 Oct, [facility] [place] [facility] [address] [id number] [place] [address]- 6841 Oct, [facility] [place] [facility] [address] [id number] [place] [address]- 1296 Oct, [facility] [place] [facility] [address] [id number] [place] [address]- 1703 Sep, [facility] [place] [facility] [address] [id number] [place] [address]- 0121 Sep, [facility] [place] [facility] [address] [id number] [place] [address]- 6630 Sep, [facility] [place] [facility] [address] [id number] [place] [address]- 8351 Sep, [facility] [place] [facility] [address] [id number] [place] [address]- 3050 Feb, [facility] [place] [facility] [address] [id number] [place] [address]- 4[address] Feb, [facility] [address] [id number] [place] [address] Dec, [facility] [place] [facility] [address] [id number] [place] [address] Dec, [facility] [address] [id number] [place] [address] Nov, [facility] [address] [id number] [place] [address] Nov, [facility] [address] [id number] [place] [address] Nov, [facility] [address] [id number] [place] [address] Nov, [facility] [address] [id number] [place] [address] Nov, [facility] [address] [id number] [place] [address] Nov, [facility] [address] [id number] [place] [address] Oct, [facility] [address] [id number] [place] [address] Apr, [facility] [address] [id number] [place] [address] August, [facility] [address] [id number] [place] [address] August, [facility] [place] [facility] [address] [id number] [place] [address] August, [facility] [address] [id number] [place] [address] Jul, [facility] [address] [id number] [place] [address] Jun, [facility] [place] [facility] [address] [id number] [place] [address] Jun, [facility] [place] [facility] [address] [id number] [place] [address] Jun, [facility] [place] [facility] [address] [id number] [place] [address] Jun, [facility] [place] [facility] [address] [id number] [place] [address] Jun, [facility] [place] [facility] [address] [id number] [place] [address] Jun, [facility] [place] [facility] [address] [id number] [place] [address] May, [facility] [place] [facility] [address] [id number] [place] [address] 16 May, 2011 [facility] [place] [facility] [address] [id number] [place] [address] May, [facility] [place] [facility] [address] [id number] [place] [address] May, [facility] [place] [facility] [address] [id number] [place] [address] May, [facility] [place] [facility] [address] [id number] [place] [address] May, [facility] [place] [facility] [address] [id number] [place] [address] Apr, [facility] [place] [facility] [address] [id number] [place] [address] Mar, [facility] [place] [facility] [address] [id number] [place] [address] Mar, [facility] [place] [facility] [address] [id number] [place] [address] Feb, [facility] [place] [facility] [id number] [address] Jan, [facility] [id number] [address] Mar, [facility] [id number], [place] [address] Mar, [facility] [id number] [address] Mar, [facility] [id number] [place] [address] Mar, [facility] [id number] [place] [address] Mar, [facility] [id number] [address] Feb, [facility] [id number] [place] [address] Feb, [facility] [id number], [place] [address] Nov, [facility] [id number], [place] [address] May, IMMUNIZATIONS No Known Immunizations SOCIAL HISTORY Never Assessed REASON FOR VISIT Allergic reaction, possible to lamictal- starting to get a rash and skin is burning started yesterday [employer] PLAN OF CARE Activity Details Follow Up prn Reason: VITAL SIGNS Height 64 in 2016-12-17 Weight 291.4 lbs 2016-12-17 Temperature 98.2 degrees Fahrenheit 2016-12-17 Heart Rate 84 bpm 2016-12-17 Respiratory Rate 22 2016-12-17 BMI 50.01 kg/m2 2016-12-17 Blood pressure systolic 150 mmHg 2016-12-17 Blood pressure diastolic 108 mmHg 2016-12-17 MEDICATIONS Medication Instructions Dosage Frequency Start Date End Date Duration Status Latuda 60 mg Orally Once a day at supper with food 1 tablet Nov, 30 day(s) Active Celexa 20 mg Orally Once a day 1 tablet 24h 30 day(s) Active Mirena 20 MCG/24HR Active Lamictal 150 MG Orally Once a day 1 tablet 24h 30 day(s) Active Klonopin 0.5 MG Orally Twice a day as needed 1 tablet Nov, Active RESULTS No Results PROCEDURES No Known procedures INSTRUCTIONS MEDICATIONS ADMINISTERED No Known Medications MEDICAL (GENERAL) HISTORY Type Description Date Medical History HELP syndrome Medical History bi-polar Medical History hypertension Medical History hx of seizure x1, isolated Surgical History gallbladder 10/2013 Surgical History 03/2014 

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
[2017-12-25] MEDS ORDERED: IOHEXOL 350 MG/ML 100 ML (OMNIPAQUE 350) VIAL IV ONE (21:00)
[2017-12-25] MEDS ORDERED: NS 250 ML (IVPB) BAG IV ONE (21:00)
[2017-12-25 21:32] LABS: BASOPHILS # (AUTO) 0.1 10^3/uL (0.0-0.1); BASOPHILS % (AUTO) 1 % (0-10); EOSINOPHILS # (AUTO) 0.3 10^3/uL (0.0-0.3); EOSINOPHILS % (AUTO) 3 % (0-10); HEMATOCRIT 38 % (35-52); HEMOGLOBIN 13.4 G/DL (11.5-16.0); LYMPHOCYTES # (AUTO) 2.6 X 10^3 (1.0-4.0); LYMPHOCYTES % (AUTO) 26 % (12-44); MEAN CORPUSCULAR HEMOGLOBIN 30 PG (25-34); MEAN CORPUSCULAR HGB CONC 35 G/DL (32-36); MEAN CORPUSCULAR VOLUME 86 FL (80-99); MEAN PLATELET VOLUME 9.3 FL (7.4-10.4); MONOCYTES # (AUTO) 0.9 X 10^3 (0.0-1.0); MONOCYTES % (AUTO) 9 % (0-12); NEUTROPHILS # (AUTO) 6.3 X 10^3 (1.8-7.8); NEUTROPHILS % (AUTO) 62 % (42-75); PLATELET COUNT 335 10^3/uL (130-400); RED BLOOD COUNT 4.47 10^6/uL (4.35-5.85); WHITE BLOOD COUNT 10.2 10^3/uL (4.3-11.0)
[2017-12-25 21:59] LABS: ALANINE AMINOTRANSFERASE 21 U/L (0-55); ALBUMIN 4.1 GM/DL (3.2-4.5); ALKALINE PHOSPHATASE 77 U/L (40-136); BILIRUBIN,TOTAL 0.7 MG/DL (0.1-1.0); BUN/CREATININE RATIO 15; CALCIUM 8.9 MG/DL (8.5-10.1); CARBON DIOXIDE 23 MMOL/L (21-32); CHLORIDE 104 MMOL/L (98-107); CREATININE SERUM 0.75 MG/DL (0.60-1.30); GFR ESTIMATED > 60; GLUCOSE 87 MG/DL (70-105); POTASSIUM 3.1 MMOL/L (3.6-5.0); SODIUM 137 MMOL/L (135-145); TOTAL PROTEIN 7.1 GM/DL (6.4-8.2)
[2017-12-25] MEDS ORDERED: KCL 20 MEQ TAB (K-DUR) PO ONE (22:15)
[2017-12-25 22:16] LABS: BILIRUBIN,URINE NEGATIVE (NEGATIVE); CLARITY,URINE CLEAR; COLOR,URINE YELLOW; GLUCOSE, URINE (UA) NEGATIVE (NEGATIVE); KETONES,URINE NEGATIVE (NEGATIVE); LEUKOCYTE ESTERASE ,URINE 1+ (NEGATIVE); NITRITE,URINE NEGATIVE (NEGATIVE); PH,URINE 6 (5-9); PROTEIN,URINE NEGATIVE (NEGATIVE); UROBILINOGEN,URINE NORMAL (NORMAL)
[2017-12-25 22:24] LABS: BACTERIA,URINE MODERATE /HPF
[2017-12-25 22:30] LABS: AMPHETAMINE SCREEN, URINE NEGATIVE (NEGATIVE); BARBITURATE SCREEN URINE NEGATIVE (NEGATIVE); BENZODIAZEPINES SCREEN URINE NEGATIVE (NEGATIVE); CANNABINOID SCREEN, URINE NEGATIVE (NEGATIVE); COCAINE SCREEN URINE NEGATIVE (NEGATIVE); METHADONE STAT NEGATIVE (NEGATIVE); METHAMPHETAMINE SCREEN URINE S NEGATIVE (NEGATIVE); OPIATE SCREEN URINE NEGATIVE (NEGATIVE); OXYCODONE STAT NEGATIVE (NEGATIVE); PROPOXYPHENE STAT NEGATIVE (NEGATIVE); TRICYCLIC ANTIDEPRESSANTS SCRE NEGATIVE (NEGATIVE)
[2017-12-25] MEDS ORDERED: LORazepam INJ 2 MG/ML (ATIVAN) VIAL IVP PRN (22:30)
[2017-12-25] MEDS ORDERED: METO-352 PO (23:23)
[2017-12-25 23:58] VITALS: BP 138/102
--- NOTE | 2017-12-26 05:59 | Diagnostic Imaging Report ---
CHEST 1 VIEW, AP/PA ONLY Indication: Cough and hemoptysis Comparison: 05/27/2007 Findings: No focal airspace disease in the visualized lungs. Please note that the posterior lower lobes are poorly evaluated by portable radiography. No pleural effusion or pneumothorax. Normal cardiomediastinal silhouette. Impression: No acute cardiopulmonary process by portable radiography. Dictated by: Dictated on workstation # [id number]
--- NOTE | 2017-12-26 06:12 | Diagnostic Imaging Report ---
PROCEDURE: CT angiography of the head and CT angiography of the neck with and without contrast. TECHNIQUE: Contiguous noncontrast images were obtained from the skull base through the vertex. After intravenous contrast administration, helical CT angiography of the neck was performed. Source data was reformatted into multiple MIP projections. Delayed post contrast acquisition was also obtained. INDICATION: Left-sided facial numbness and tingling. COMPARISON: None available. FINDINGS: Noncontrast head: No hyperdense hemorrhage or space-occupying mass. No hydrocephalus or midline shift. Russell-white matter differentiation is well preserved. CTA NECK: Aorta:Two-vessel branching pattern of the aortic arch. Anterior Circulation: The origin of the bilateral common carotid arteries are patent. No stenosis of the common carotid arteries in the neck. No significant stenosis of the internal carotid arteries per NASCET criteria. The cervical segments of the bilateral ICAs are patent. The proximal external carotid arteries are patent and without significant stenosis. Posterior Circulation: Origins of the bilateral vertebral arteries are normal. Right vertebral artery is dominant. The proximal extraosseous, intraosseous, and distal extraosseous segments of the vertebral arteries are patent without dissection or stenosis. Non-vascular: No cervical lymphadenopathy. The airway is patent. No evidence of mucosal-based mass lesion in the pharynx. Thyroid is normal. Salivary glands are normal. No concerning lesion in the cervical spine. CTA HEAD: Anterior Circulation: The distal internal carotid arteries are patent. The bilateral M1 and M2 segments of the middle cerebral arteries are patent and without stenosis. The bilateral M3 and M4 segments are symmetric in size and number. The anterior cerebral arteries are patent and without stenosis. Anterior communicating artery is patent. No saccular aneurysm in the anterior circulation. Posterior Circulation: The bilateral intracranial segments of the vertebral arteries are patent. The basilar artery is patent and without stenosis. The posterior cerebral arteries are patent. Bilateral posterior communicating arteries are patent and without aneurysm. No saccular aneurysm in the posterior circulation. Post Contrast Head: No pathologic enhancement on delayed post-contrast enhancement. IMPRESSION: 1. No intra-cranial major arterial occlusion, significant stenosis or aneurysm. 2. No arterial occlusion or stenosis in the major neck arteries. 3. Noncontrast imaging show no features of acute infarct or hemorrhage. 4. Findings are in agreement with the preliminary report. Dictated by: Dictated on workstation # [id number]
[2017-12-26] MEDS ORDERED: LISI1TAB6 PO (20:05)
== END 2017-12-25 23:53 | disposition home or self-care (01) ==
LOC: EDUNIT# 19:58 → ER 20:00
DX: I10 Essential (primary) hypertension (principal); R20.2 Paresthesia of skin; F31.9 Bipolar disorder, unspecified; Z86.19 Personal history of other infectious and parasitic diseases; Z98.890 Other specified postprocedural states; Z97.5 Presence of (intrauterine) contraceptive device
CPT/HCPCS: 36415; 70496; 70498; 71045; 80053; 80306; 81000; 84703; 85025; 85379; 87077; 87088; 87186; 93005; 96374; 96375

== ENCOUNTER 2017-12-26 15:12 | Emergency (ER) | payer MEDICAID ==
[~2017-12-26] VITALS: Ht 160 cm; Wt 127.1 kg
[~2017-12-26 15:12] MED LIST changes: +METO-352 PO
[2017-12-26] MEDS ORDERED: LORazepam INJ 2 MG/ML (ATIVAN) VIAL IVP ONE ×2 (16:00→18:15)
[2017-12-26] MEDS ORDERED: ONDANSETRON 4 MG/2 ML (SDV) Z0FRAN IVP ONE (16:00)
[2017-12-26] MEDS ORDERED: LABETALOL HCL 20 MG/4 ML VIAL IV ONE (16:00)
[2017-12-26 16:11] LABS: BASOPHILS % (AUTO) 0 % (0-10); EOSINOPHILS # (AUTO) 0.3 10^3/uL (0.0-0.3); EOSINOPHILS % (AUTO) 3 % (0-10); HEMATOCRIT 39 % (35-52); HEMOGLOBIN 13.6 G/DL (11.5-16.0); LYMPHOCYTES # (AUTO) 2.1 X 10^3 (1.0-4.0); LYMPHOCYTES % (AUTO) 22 % (12-44); MEAN CORPUSCULAR HEMOGLOBIN 30 PG (25-34); MEAN CORPUSCULAR HGB CONC 35 G/DL (32-36); MEAN CORPUSCULAR VOLUME 87 FL (80-99); MEAN PLATELET VOLUME 9.7 FL (7.4-10.4); MONOCYTES # (AUTO) 0.9 X 10^3 (0.0-1.0); MONOCYTES % (AUTO) 9 % (0-12); NEUTROPHILS # (AUTO) 6.4 X 10^3 (1.8-7.8); NEUTROPHILS % (AUTO) 66 % (42-75); PLATELET COUNT 318 10^3/uL (130-400); RED BLOOD COUNT 4.48 10^6/uL (4.35-5.85); RED CELL DISTRIBUTION WIDTH 12.9 % (10.0-14.5); WHITE BLOOD COUNT 9.7 10^3/uL (4.3-11.0)
[2017-12-26 16:20] LABS: BUN/CREATININE RATIO 14; CALCIUM 9.1 MG/DL (8.5-10.1); CARBON DIOXIDE 22 MMOL/L (21-32); CHLORIDE 106 MMOL/L (98-107); CREATININE SERUM 0.76 MG/DL (0.60-1.30); GFR ESTIMATED > 60; GLUCOSE 98 MG/DL (70-105); MAGNESIUM 2.2 MG/DL (1.8-2.4); POTASSIUM 3.6 MMOL/L (3.6-5.0); SODIUM 138 MMOL/L (135-145)
[2017-12-26 16:41] LABS: TSH (THYROID ANALYZER) 1.31 UIU/ML (0.35-4.94)
[2017-12-26] MEDS ORDERED: HYDROCHLOROTHIAZIDE 25 MG (HCTZ) TAB PO ONE (16:45)
[2017-12-26] MEDS ORDERED: lisINopril 10 MG (PRINIVIL) TABLET PO ONE (16:45)
--- NOTE | 2017-12-26 18:58 | Diagnostic Imaging Report ---
PROCEDURE: MR imaging of the brain without contrast. TECHNIQUE: Multiplanar, multisequence MR imaging of the brain was performed without contrast. INDICATION: Headache. Left arm and facial numbness. Difficulty talking. COMPARISON: CTA head and neck 12/25/2017. FINDINGS: No abnormal intracranial signal. No restricted water diffusion or hemosiderin deposition. Normal morphology including the major midline structures, sella, posterior fossa and cerebellopontine angle. The orbits are unremarkable on this nondedicated exam. Normal intracranial flow voids. No hydrocephalus or extra-axial fluid collections. Mild mucosal thickening in the right maxillary sinus. Scant fluid in the left mastoid. Normal bone marrow signal. IMPRESSION: 1. Normal MRI of the brain without contrast. 2. Mild mucosal thickening in the floor of the right maxillary sinus. 3. Nonspecific tiny left mastoid effusion. Dictated by: Dictated on workstation # [id number]
[2017-12-26] MEDS ORDERED: KETOROLAC 30 MG/ML VIAL IVP ONE (19:15)
--- NOTE | 2017-12-26 20:04 | ED Neurological Problem ---
General Chief Complaint: Neurological Problems Stated Complaint: FACE NUMB, L ARM PAIN, CP Nursing Triage Note: ambulated to room 6 without issue. tearful. states that she was seen last night for same sx. Was told that she has anxiety but that is not the issue because she knows what that is like. She began having numbness to left side of face and left arm pain. Sx that have never gone away. States that now she is nauseated and having dry heaves. Is able to lift eyebrows but is not willing to try, is able to smile but again is not willing to try. Became angry with Dr Napoles when he asked her to try harder. She was presecribed meds for bp but has not had them filled and has not had anything today Nursing Sepsis Screen: No Definite Risk Source: patient, old records Exam Limitations: no limitations History of Present Illness Date Seen by Provider: Dec 26, 2017 Time Seen by Provider: 15:45 Initial Comments This 27-year-old woman presents to the emergency room with complaints of pain and paresthesias in the left arm, left leg, and left face. Symptoms started yesterday afternoon and she presented to the ER. She was evaluated thoroughly and found to be hypertensive. She was treated with IV Lopressor and prescribed metoprolol. She has not picked up the metoprolol prescription and she is again severely hypertensive. Today she started dry heaving and developed a headache. She is still nauseated now. She does have a history of hypertension but has not been treated for it since her teens. Patient was also treated for hypokalemia yesterday. Nursing staff reported patient ambulated normally to the exam room with no difficulty or gait problems. Allergies and Home Medications Allergies Coded Allergies: No Known Drug Allergies (Unverified , 12/26/17) Home Medications Cyclobenzaprine HCl 10 Mg Tablet, 10 MG PO Q8H Prescribed by: DAMASO NOLASCO on 02/15/152105 Lisinopril/Hydrochlorothiazide 1 Each Tablet, 1 EACH PO DAILY Prescribed by: JOSE NAPOLES on 12/26/172004 Metoprolol Succinate 50 Mg Tab.er.24h, 50 MG PO DAILY Prescribed by: GILBERTO MENDEZ on 12/25/172322 Naproxen 500 Mg Tablet, 500 MG PO BID Prescribed by: DAMASO NOLASCO on 02/15/152105 Nitrofurantoin Monohyd/M-Cryst 100 Mg Capsule, 100 MG PO BID Prescribed by: DAMASO NOLASCO on 02/15/152105 Patient Home Medication List Home Medication List Reviewed: Yes Review of Systems Review of Systems Constitutional: no symptoms reported Eyes: No Symptoms Reported Ears, Nose, Mouth, Throat: no symptoms reported Respiratory: no symptoms reported Cardiovascular: see HPI Gastrointestinal: see HPI Genitourinary: no symptoms reported : No Musculoskeletal: no symptoms reported Skin: no symptoms reported Psychiatric/Neurological: See HPI Endocrine: No Symptoms Reported Hematologic/Lymphatic: No Symptoms Reported Past Pqrranp-Werjsz-Awkizw Hx Past Med/Social Hx: Reviewed and Corrections made Patient Social History Alcohol Use: Denies Use Recreational Drug Use: No Smoking Status: Never a Smoker Recent Foreign Travel: No Contact w/Someone Who Travel: No Recent Infectious Disease Expo: No Recent Hopitalizations: No Physical Abuse: No Sexual Abuse: No Mistreated: No Fear: No Immunizations Up To Date Tetanus Booster (TDap): More than 5yrs Date of Influenza Vaccine: Feb 07, 2014 Past Medical History Surgeries: Yes Section, Gallbladder Respiratory: No Cardiac: Yes Hypertension Neurological: No : No Reproductive Disorders: Yes (BLIGHTED OVUM 11/2012) Female Reproductive Disorders: Polycystic Ovarian Dis 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 Sexually Transmitted Disease: Yes (CHLAMYDIA ) HIV/AIDS: No Genitourinary: No Gastrointestinal: Yes Gall Bladder Disease Musculoskeletal: No Endocrine: Yes (morbid obesity) HEENT: No Cancer: No Psychosocial: Yes Anxiety, Bipolar, Depression Integumentary: No Blood Disorders: Yes (HELLP SYNDROME WITH ) Adverse Reaction/Blood Tranf: No Family Medical History Reviewed Nursing Family Hx No Pertinent Family Hx Physical Exam Vital Signs Vital Signs - First Documented 12/26/17 15:15 Temp 98.1 Pulse 88 Resp 16 B/P (MAP) 207/146 (166) Pulse Ox 98 Capillary Refill : Less Than 3 Seconds Height, Weight, BMI Height: 5'3.00" Weight: 280lbs. 4.0oz. 127.237695bo; 37.76 BMI Method:Stated General Appearance: WD/WN, mild distress (tearful), obese HEENT: PERRL/EOMI, normal ENT inspection, other (no tenderness over the mastoids) Neck: non-tender, normal inspection Respiratory: lungs clear, normal breath sounds, no respiratory distress, no accessory muscle use Cardiovascular: regular rate, rhythm, no edema, no murmur Gastrointestinal: normal bowel sounds, non tender, soft Extremities: normal inspection, no pedal edema Neurologic/Psychiatric: mixing machine tender cork rod II-XII nml as tested, alert, oriented x 3, other ( irritable, agitated) Crainal Nerves: normal hearing, normal speech, PERRL, facial paresthesias ( numbness to the left side of the face) Coordination/Gait: normal finger to nose, normal gait Motor/Sensory: weak motor strength LUE (very subtle), weak motor strength LLE ( very subtle) Skin: normal color, warm/dry Stroke NIH Stroke Scale Assessment Level of Consciousness: 0=Alert (0), Level of Consciousness-Questions: 0= Answers both month/age (0), LOC Commands: 0=Performs both tasks (0), Gaze: Normal (0), Visual Barrera: 0=No visual loss (0), Facial Movement (Facial Paresis ): 0=Normal symmetrical mnt (0), Motor Function-Arms Right: 0=No drift (0), Motor Function-Arms Left: 0=No drift (0), Motor Function-Legs Right: 0=No drift (0), Motor Function-Legs Left: 0=No drift (0), Limb Ataxia: 0=Absent (0), Sensory: 1=Mild to Moderate loss (1), Best Language: 0=No aphasia (0), Dysarthria: 0=Normal (0), Extinction & Inattention: 0=No abnormality (0), Total : Stroke Thrombolytic Exclusion Age 18 or Over: Yes Acute intenal hemorrhage: No History of CVA: No Uncontrolled Coagulation Defec: No Severe Hypertension: Yes GI or Bleed: No Subarachnoid Hemorrhage: No Intracranial Neoplasm/Aneurysm: No Oral Anticoagulants: No Surgery or Trauma: No Puncture of Non-Compressible V: No Recent CPR: No Diabetic Hemorrhagic Retinopat: No Organ Biopsy: No Recent Obstetric Delivery: No Glucose: No Significant Hepatic Dysfunctio: No NIH Stoke Scale >22: No Bacterial Endocarditis: No Pericarditis: No Improving Symptoms: No Platelets: No Progress/Results/Core Measures Results/Orders Lab Results Laboratory Tests Test 12/26/17 15:33 Range/Units White Blood Count 9.7 4.3-11.0 10^3/uL Red Blood Count 4.48 4.35-5.85 10^6/uL Hemoglobin 13.6 11.5-16.0 G/DL Hematocrit 39 35-52 % Mean Corpuscular Volume 87 80-99 FL Mean Corpuscular Hemoglobin 30 25-34 PG Mean Corpuscular Hemoglobin Concent 35 32-36 G/DL Red Cell Distribution Width 12.9 10.0-14.5 % Platelet Count 318 130-400 10^3/uL Mean Platelet Volume 9.7 7.4-10.4 FL Neutrophils (%) (Auto) 66 42-75 % Lymphocytes (%) (Auto) 22 12-44 % Monocytes (%) (Auto) 9 0-12 % Eosinophils (%) (Auto) 3 0-10 % Basophils (%) (Auto) 0 0-10 % Neutrophils # (Auto) 6.4 1.8-7.8 X 10^3 Lymphocytes # (Auto) 2.1 1.0-4.0 X 10^3 Monocytes # (Auto) 0.9 0.0-1.0 X 10^3 Eosinophils # (Auto) 0.3 0.0-0.3 10^3/uL Basophils # (Auto) 0.0 0.0-0.1 10^3/uL Sodium Level 138 135-145 MMOL/L Potassium Level 3.6 3.6-5.0 MMOL/L Chloride Level 106 98-107 MMOL/L Carbon Dioxide Level 22 21-32 MMOL/L Anion Gap 10 5-14 MMOL/L Blood Urea Nitrogen 11 7-18 MG/DL Creatinine 0.76 0.60-1.30 MG/DL Estimat Glomerular Filtration Rate > 60 BUN/Creatinine Ratio 14 Glucose Level 98 70-105 MG/DL Calcium Level 9.1 8.5-10.1 MG/DL Magnesium Level 2.2 1.8-2.4 MG/DL TSH [place] Testing 1.31 0.35-4.94 UIU/ML My Orders Orders - JOSE RAMIREZ MD Labetalol Injection (Normodyne Injection (12/26/17 16:00) Lorazepam Injection (Ativan Injection) (12/26/17 16:00) Ondansetron Injection (Zofran Injectio (12/26/17 16:00) Basic Metabolic Panel (12/26/17 16:06) Cbc With Automated Diff (12/26/17 16:06) Magnesium (12/26/17 16:06) Thyroid Analyzer (12/26/17 16:06) Lisinopril Tablet (Zestril Tablet) (12/26/17 16:45) Hydrochlorothiazide Cap/Tablet (Hctz Cap (12/26/17 16:45) Mri Brain W/O Contrast (12/26/17 16:42) Lorazepam Injection (Ativan Injection) (12/26/17 18:15) Ketorolac Injection (Toradol Injection) (12/26/17 19:15) Medications Given in ED Current Medications Medications Dose Ordered Sig/Krys Route Start Time Stop Time Status Last Admin Dose Admin Ketorolac Tromethamine 15 mg ONCE ONCE IVP 12/26/17 19:15 12/26/17 19:16 DC 12/26/17 19:23 15 MG Vital Signs/I&O 12/26/17 12/26/17 15:15 20:14 Temp 98.1 Pulse 88 92 Resp 16 16 B/P (MAP) 207/146 (166) 166/108 Pulse Ox 98 99 Blood Pressure Mean: 166 Progress Progress Note : Progress Note Patient was initially treated with labetalol, Zofran and Ativan. This did improve her blood pressure some but then did not resolve her headache or paresthesias. She was further treated with lisinopril and hydrochlorothiazide. She had acceptable improvement in her blood pressure and her symptoms were improving although not resolved prior to discharge. Labs were repeated. Hypokalemia had resolved. Case was discussed with Dr. Fernnades, stroke neurologist at [facility]. She advised MRI. MRI was performed and no abnormalities were identified. Patient received another milligram of Ativan prior to MRI for pretreatment of anxiety. Patient did have agitation with an episode of yelling outbursts. That also resolved prior to discharge. Patient was prescribed lisinopril with hydrochlorothiazide. This was felt to be superior treatment to metoprolol as patient has a significantly elevated diastolic blood pressure. The metoprolol prescription previously sent and was canceled. Patient was advised to double the dose of medication if blood pressure was not meeting suggested parameters. Patient has a follow-up appointment with Sanam Bellamy at [facility] on Friday. Diagnostic Imaging Diagonstic Imaging: MRI Plain Films/CT/US/NM/MRI: head Comments MRI brain viewed by me and report reviewed. See report below: NAME: JOANNA HAMM [facility] REC#: [id number] PT STATUS: REG ER : 1990 PHYSICIAN: JOSE RAMIREZ MD ADMIT DATE: 12/26/17/ER Signed Date of Exam: 12/26/17 MRI BRAIN W/O CONTRAST PROCEDURE: MR imaging of the brain without contrast. TECHNIQUE: Multiplanar, multisequence MR imaging of the brain was performed without contrast. INDICATION: Headache. Left arm and facial numbness. Difficulty talking. COMPARISON: CTA head and neck 12/25/2017. FINDINGS: No abnormal intracranial signal. No restricted water diffusion or hemosiderin deposition. Normal morphology including the major midline structures, sella, posterior fossa and cerebellopontine angle. The orbits are unremarkable on this nondedicated exam. Normal intracranial flow voids. No hydrocephalus or extra-axial fluid collections. Mild mucosal thickening in the right maxillary sinus. Scant fluid in the left mastoid. Normal bone marrow signal. IMPRESSION: 1. Normal MRI of the brain without contrast. 2. Mild mucosal thickening in the floor of the right maxillary sinus. 3. Nonspecific tiny left mastoid effusion. Dictated by: Dictated on workstation # [id number] Dict: 12/26/171852 Trans: 12/26/171906 Interpreted by: JOE RAMOS MD Electronically signed by: JOE RAMOS MD 12/26/171906 Departure Impression Primary Impression: Hypertensive emergency Additional Impressions: Paresthesia of left arm and leg Facial paresthesia Acute headache Qualified Codes: R51 - Headache Left arm pain Anxiety Disposition: 01 HOME, SELF-CARE Condition: Improved Admissions Decision to Admit Reason: Admit from ER (General) Decision to Admit/Date: Dec 26, 2017 Departure-Patient Inst. Decision time for Depature: 19:50 Referrals: TI FALCON MD (PCP) Primary Care Physician [facility] (Family) Primary Care Physician Patient Instructions: High Blood Pressure Emergencies, Paresthesias (DC) Add. Discharge Instructions: For pain you may take ibuprofen up to 600 mg every 6 hours as needed. Add Tylenol (acetaminophen) up to 1000 mg every 6 hours as needed. Start the lisinopril with hydrochlorothiazide prescription tomorrow morning. If this does not keep your systolic blood pressure (top number) more than 170 or your diastolic blood pressure (bottom number) more than 100, then you may double the dose prescribed. Do not exceed 20 mg of lisinopril or 25 mg of hydrochlorothiazide in one day. Keep your appointment with [facility] on Friday. Return to emergency room if you have worsening problems. All discharge instructions reviewed with patient and/or family. Voiced understanding. Scripts Lisinopril/Hydrochlorothiazide (Lisinopril-Hctz 10-12.5 mg Tab) 1 Each Tablet 1 EACH PO DAILY, #30 TAB Prov: JOSE RAMIRZE MD 12/26/17 Work/School Note: Work Release Form Date Seen in the Emergency Department: Dec 26, 2017 Return to Work: Dec 27, 2017 Restrictions: No Restrictions Copy Copies To 1: ESTELA FRY JOSHUA T MD Dec 26, 2017 20:04
[2017-12-26] MEDS ORDERED: LISI1TAB6 PO (20:05)
[2017-12-26 20:14] VITALS: BP 166/108
== END 2017-12-26 20:15 | disposition home or self-care (01) ==
LOC: EDUNIT# 15:12 → ER 15:13
DX: I16.0 Hypertensive urgency (principal); R20.2 Paresthesia of skin; R51 Headache; F41.9 Anxiety disorder, unspecified; M79.602 Pain in left arm; I10 Essential (primary) hypertension; E66.01 Morbid (severe) obesity due to excess calories; F31.9 Bipolar disorder, unspecified; Z97.5 Presence of (intrauterine) contraceptive device; Z68.37 Body mass index [BMI] 37.0-37.9, adult; Z86.19 Personal history of other infectious and parasitic diseases; Z87.448 Personal history of other diseases of urinary system; Z98.890 Other specified postprocedural states
CPT/HCPCS: 36415; 70551; 80048; 83735; 84443; 85025; 96374; 96375; 96376

== ENCOUNTER 2019-05-04 13:05 | Emergency (ER) | payer BC, MEDICAID ==
[~2019-05-04] VITALS: Ht 162 cm; Wt 137.0 kg
[~2019-05-04 13:05] MED LIST changes: +LISI1TAB29 PO
--- NOTE | 2019-05-04 13:35 | ED Abdominal Pain ---
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 STATES SHE WAS 1.5 MONTHS LATE ON HER PERIOD BUT HAS BEEN SCARED TO TAKE A TEST. Sepsis Screen: No Definite Risk Source of Information: Patient Exam Limitations: No Limitations History of Present Illness Date Seen by Provider: May 04, 2019 Time Seen by Provider: 13:33 Initial Comments To ER with reports of low back pain, abdominal cramping and vaginal bleeding and she passed what she believes was an "sac". She missed her period last month and believes that she was but never actually took a test. States they've been trying to get but has been having some difficulty with that, she's had 2 previous miscarriages. Timing/Duration: 1-2 Days Severity/Quality: Cramping Radiation: No Radiation Activities at Onset: None Associated Symptoms: Back Pain Allergies and Home Medications Allergies Coded Allergies: No Known Drug Allergies (Unverified , 12/26/17) Home Medications Cyclobenzaprine HCl 10 Mg Tablet, 10 MG PO Q8H Prescribed by: DAMASO NOLASCO on 02/15/152105 Lisinopril/Hydrochlorothiazide 1 Each Tablet, 1 EACH PO DAILY Prescribed by: JOSE CARRASQUILLO on 12/26/172004 Metoprolol Succinate 50 Mg Tab.er.24h, 50 MG PO DAILY Prescribed by: GILBERTO MENDEZ on 12/25/172322 Naproxen 500 Mg Tablet, 500 MG PO BID Prescribed by: DAMASO NOLASCO on 02/15/152105 Nitrofurantoin Monohyd/M-Cryst 100 Mg Capsule, 100 MG PO BID Prescribed by: DAMASO NOLASCO on 02/15/152105 Patient Home Medication List Home Medication List Reviewed: Yes Review of Systems Review of Systems Constitutional: see HPI EENTM: No Symptoms Reported Respiratory: No Symptoms Reported Cardiovascular: No Symptoms Reported Gastrointestinal: See HPI, Abdominal Pain Genitourinary: No Symptoms Reported Musculoskeletal: no symptoms reported Skin: no symptoms reported Psychiatric/Neurological: No Symptoms Reported Endocrine: No Symptoms Reported Hematologic/Lymphatic: No Symptoms Reported Past Wbxqupt-Xwtzxr-Ycvdwf Hx Patient Social History Alcohol Use: Denies Use Recreational Drug Use: No Smoking Status: Never a Smoker Recent Foreign Travel: No Contact w/Someone Who Travel: No Recent Infectious Disease Expo: No Recent Hopitalizations: No Immunizations Up To Date Tetanus Booster (TDap): More than 5yrs Date of Influenza Vaccine: Feb 07, 2014 Past Medical History Surgeries: Yes Section, Gallbladder Respiratory: No Cardiac: Yes Hypertension Neurological: No Reproductive Disorders: Yes (BLIGHTED OVUM 11/2012) Female Reproductive Disorders: Polycystic Ovarian Dis 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 Sexually Transmitted Disease: Yes (CHLAMYDIA ) HIV/AIDS: No Genitourinary: No Gastrointestinal: Yes Gall Bladder Disease Musculoskeletal: No Endocrine: Yes (morbid obesity) HEENT: No Cancer: No Psychosocial: Yes Anxiety, Bipolar, Depression Integumentary: No Blood Disorders: Yes (HELLP SYNDROME WITH ) Adverse Reaction/Blood Tranf: No Family Medical History No Pertinent Family Hx Physical Exam Vital Signs Vital Signs - First Documented 05/04/19 13:14 Temp 36.8 Pulse 88 Resp 16 B/P (MAP) 212/127 (155) Pulse Ox 97 O2 Delivery Room Air Capillary Refill : Less Than 3 Seconds Height/Weight/BMI Height: 5'3.00" Weight: 280lbs. 4.0oz. 127.739047jj; 52.00 BMI Method:Stated General Appearance: WD/WN, no apparent distress, obese, other (tearful) HEENT: PERRL/EOMI, normal ENT inspection Neck: non-tender, full range of motion Respiratory: no respiratory distress, no accessory muscle use Cardiovascular: regular rate, rhythm, no murmur Gastrointestinal: normal bowel sounds, soft Extremities: normal range of motion, non-tender Neurologic/Psychiatric: alert, normal mood/affect, oriented x 3 Skin: normal color, warm/dry Progress/Results/Core Measures Results/Orders Lab Results Laboratory Tests Test 05/04/19 13:30 05/04/19 13:41 Range/Units White Blood Count 9.0 4.3-11.0 10^3/uL Red Blood Count 4.75 4.35-5.85 10^6/uL Hemoglobin 13.9 11.5-16.0 G/DL Hematocrit 40 35-52 % Mean Corpuscular Volume 84 80-99 FL Mean Corpuscular Hemoglobin 29 25-34 PG Mean Corpuscular Hemoglobin Concent 35 32-36 G/DL Red Cell Distribution Width 13.0 10.0-14.5 % Platelet Count 355 130-400 10^3/uL Mean Platelet Volume 9.3 7.4-10.4 FL Neutrophils (%) (Auto) 70 42-75 % Lymphocytes (%) (Auto) 22 12-44 % Monocytes (%) (Auto) 7 0-12 % Eosinophils (%) (Auto) 2 0-10 % Basophils (%) (Auto) 0 0-10 % Neutrophils # (Auto) 6.3 1.8-7.8 X 10^3 Lymphocytes # (Auto) 2.0 1.0-4.0 X 10^3 Monocytes # (Auto) 0.6 0.0-1.0 X 10^3 Eosinophils # (Auto) 0.1 0.0-0.3 10^3/uL Basophils # (Auto) 0.0 0.0-0.1 10^3/uL Sodium Level 139 135-145 MMOL/L Potassium Level 3.9 3.6-5.0 MMOL/L Chloride Level 108 H 98-107 MMOL/L Carbon Dioxide Level 22 21-32 MMOL/L Anion Gap 9 5-14 MMOL/L Blood Urea Nitrogen 9 7-18 MG/DL Creatinine 0.79 0.60-1.30 MG/DL Estimat Glomerular Filtration Rate > 60 BUN/Creatinine Ratio 11 Glucose Level 97 70-105 MG/DL Calcium Level 9.3 8.5-10.1 MG/DL Human Chorionic Gonadotropin, Quant < 5 <5 MIU/ML Urine Color RED H Urine Clarity CLEAR Urine pH 8.0 5-9 Urine Specific [place] 1.015 L 1.016-1.022 Urine Protein 2+ H NEGATIVE Urine Glucose (UA) NEGATIVE NEGATIVE Urine Ketones TRACE H NEGATIVE Urine Nitrite NEGATIVE NEGATIVE Urine Bilirubin 1+ H NEGATIVE Urine Urobilinogen 0.2 < = 1.0 MG/DL Urine Leukocyte Esterase NEGATIVE NEGATIVE Urine RBC (Auto) 3+ H NEGATIVE Urine RBC TNTC H /HPF Urine WBC NONE /HPF Urine Squamous Epithelial Cells 5-10 /HPF Urine Crystals NONE /LPF Urine Bacteria NEGATIVE /HPF Urine Casts NONE /LPF Urine Mucus NEGATIVE /LPF Urine Culture Indicated NO My Orders Orders - GILBERTO MENDEZ MOTION PICTURE PROJECTIONIST APPRENTICE Cbc With Automated Diff (05/04/19 13:26) Hcg,Quantitative (05/04/19 13:26) Ua Culture If Indicated (05/04/19 13:26) Basic Metabolic Panel (05/04/19 13:26) Us Ob<14 Wks Sngle W/Transvag (05/04/19 13:26) Vital Signs/I&O 05/04/19 13:14 Temp 36.8 Pulse 88 Resp 16 B/P (MAP) 212/127 (155) Pulse Ox 97 O2 Delivery Room Air Blood Pressure Mean: 155 Departure Impression Primary Impression: Irregular periods/menstrual cycles Disposition: HOME, SELF-CARE Condition: Stable Departure-Patient Inst. Decision time for Depature: 14:09 Referrals: TI FALCON MD (PCP) Primary Care Physician [facility] (Family) Primary Care Physician Patient Instructions: Absent or Irregular Periods Add. Discharge Instructions: 1. Return to Er for any concerns 2. See your doctor next week All discharge instructions reviewed with patient and/or family. Voiced understanding. Work/School Note: Work Release Form Date Seen in the Emergency Department: May 04, 2019 Return to Work: May 06, 2019 Restrictions: No Restrictions GILBERTO MENDEZ APRN May 04, 2019 13:35
[2019-05-04 13:40] LABS: BASOPHILS % (AUTO) 0 % (0-10); EOSINOPHILS # (AUTO) 0.1 10^3/uL (0.0-0.3); EOSINOPHILS % (AUTO) 2 % (0-10); HEMATOCRIT 40 % (35-52); HEMOGLOBIN 13.9 G/DL (11.5-16.0); LYMPHOCYTES % (AUTO) 22 % (12-44); MEAN CORPUSCULAR HEMOGLOBIN 29 PG (25-34); MEAN CORPUSCULAR HGB CONC 35 G/DL (32-36); MEAN CORPUSCULAR VOLUME 84 FL (80-99); MEAN PLATELET VOLUME 9.3 FL (7.4-10.4); MONOCYTES # (AUTO) 0.6 X 10^3 (0.0-1.0); MONOCYTES % (AUTO) 7 % (0-12); NEUTROPHILS # (AUTO) 6.3 X 10^3 (1.8-7.8); NEUTROPHILS % (AUTO) 70 % (42-75); PLATELET COUNT 355 10^3/uL (130-400)
[2019-05-04 13:46] LABS: BILIRUBIN,URINE 1+ (NEGATIVE); CLARITY,URINE CLEAR; COLOR,URINE RED; GLUCOSE, URINE (UA) NEGATIVE (NEGATIVE); KETONES,URINE TRACE (NEGATIVE); LEUKOCYTE ESTERASE ,URINE NEGATIVE (NEGATIVE); NITRITE,URINE NEGATIVE (NEGATIVE); PROTEIN,URINE 2+ (NEGATIVE)
[2019-05-04 13:53] LABS: BACTERIA,URINE NEGATIVE /HPF; RBC,URINE TNTC /HPF
[2019-05-04 13:54] LABS: BUN/CREATININE RATIO 11; CALCIUM 9.3 MG/DL (8.5-10.1); CARBON DIOXIDE 22 MMOL/L (21-32); CHLORIDE 108 MMOL/L (98-107); CREATININE SERUM 0.79 MG/DL (0.60-1.30); GFR ESTIMATED > 60; GLUCOSE 97 MG/DL (70-105); POTASSIUM 3.9 MMOL/L (3.6-5.0); SODIUM 139 MMOL/L (135-145)
--- NOTE | 2019-05-04 15:18 | Diagnostic Imaging Report ---
PROCEDURE: US Non-ob pelvis comp/trans. TECHNIQUE: Multiple Real-time grayscale images were obtained of the pelvis in various projections endovaginally. Transabdominal imaging was also performed. INDICATION: Pelvic pain. FINDINGS: The uterus is anteverted measuring 8.7 x 4.3 x 5.9 cm. The endometrium is approximately 3 mm in thickness. No myometrial mass is detected. The right ovary was not visualized. The left ovary measures 4.0 x 2.8 x 2.1 cm. The left ovary does contain small follicles. There is blood flow. No adnexal mass or free fluid is seen. IMPRESSION: Nonvisualized right ovary. The study is otherwise unremarkable. Dictated by: Dictated on workstation # [id number]
[2019-05-04 15:20] VITALS: BP 165/88
== END 2019-05-04 15:22 | disposition home or self-care (01) ==
LOC: EDUNIT# 13:05 → ER 13:07
DX: N92.6 Irregular menstruation, unspecified (principal); I10 Essential (primary) hypertension; E66.01 Morbid (severe) obesity due to excess calories; F41.9 Anxiety disorder, unspecified; F31.9 Bipolar disorder, unspecified; Z68.43 Body mass index [BMI] 50.0-59.9, adult
CPT/HCPCS: 36415; 76830; 76856; 80048; 81000; 84702; 85025